=== PATIENT | female | born 1960 | race Caucasian/White ===

== ENCOUNTER 2017-11-24 14:03 | Emergency (ER) | payer MEDICARE, MEDICAID, SELFPAY ==
[2017-11-24] VITALS (12 sets, daily range): BP systolic 85–142; BP diastolic 45–88; PULSE 87–107; RESP 13–32; TEMP 36.4; O2SAT 91–99
--- NOTE | 2017-11-24 14:02 | DI.CT_ITS ---
SYMPTOMS/DIAGNOSIS: TRAUMA, INTOXICATED, NEED C-SPINE CLEARANCE CRANIAL CT: A noncontrast enhanced examination was performed. There is moderately severe generalized atrophy. A small region of left parietal cortical hemorrhage is demonstrated. There are regions of diminished absorption involving the frontoparietal white matter consistent with small vessel disease. There is no mass. There is nothing to suggest a territorial infarct. The ventricles are intact. There is no evidence of a skull fracture. Minimal inflammatory changes are noted on the floor of the right maxillary antrum. The paranasal sinuses are otherwise unremarkable. There is no evidence of a mastoid effusion. SUMMARY: Small regions of cortical hemorrhage are demonstrated in the left parietal lobe. There is moderately severe generalized atrophy. C-SPINE CT: The C-spine CT reveals no evidence of a fracture or dislocation. There are severe degenerative changes involving C4, C5 and C6. Disc space narrowing is noted at these levels. The neural canal is widely patent throughout. The posterior elements are intact. The odontoid is closely applied to the anterior arch of C1. SUMMARY: No evidence of an acute fracture or dislocation.
[2017-11-24] MEDS: Normal Saline 1,000 ML 1000 ML IV ×2 (14:30→19:36)
[2017-11-24] MEDS: Ondansetron 4 MG/2 ML VIAL IVP (14:30)
[2017-11-24 15:53] LABS: Abs Immature Grans 0.04 k/cumm (0.0-0.09); Absolute Basophil Count 0.05 k/cumm (0.0-0.2); Absolute Eosinophil Count 0.07 k/cumm (0.0-0.7); Absolute Lymphocyte Count 0.65 k/cumm (1.2-3.4); Absolute Monocyte Count 0.99 k/cumm (0.11-0.7); Absolute Neutrophil Count 4.11 k/cumm (1.2-6.7); Basophils % 0.8; Eosinophils % 1.2; HCT 37.5 % (36.0-46.0); HGB 13.2 g/dL (12.0-15.5); Immature Grans % 0.7; Mean Corp. HGB Concentration 35.2 g/dL (32.0-36.0); Mean Corpuscular Hemoglobin 36.1 pg (27.0-33.0); Mean Corpuscular Volume 102.5 fL (80-95); Mean Platelet Volume 8.8 fL (8.0-11.0); Monocytes % 16.8; Neutrophils % 69.5; Platelet Count 197 x1000/uL (130-400); RBC 3.66 m/cumm (4.00-5.20); RBC Distribution Width 13.8 % (11.7-14.6); White Blood Cell Count 5.91 k/cumm (4.4-10.8)
[2017-11-24 16:05] LABS: INR 1.1 (1.0-3.5); Prothrombin Time 10.6 sec (9.3-10.8)
[2017-11-24 16:27] LABS: ALT 92 U/L (12-78); AST 137 U/L (15-37); Albumin 3.2 g/dL (3.4-5.0); Alkaline Phosphatase 183 U/L (46-116); Anion Gap 11.5 mmol/L (3-11); BUN 4 mg/dL (7-18); Bilirubin, Total 0.3 mg/dL (0.2-1.0); CO2 25.5 mmol/L (21.0-32.0); CREATININE 0.44 mg/dL (0.55-1.02); Calcium 8.1 mg/dL (8.5-10.1); Chloride 98 mmol/L (98-107); ETHANOL BLOOD 370.2 mg/dL (<3); Glucose 93 mg/dL (70-100); Magnesium 1.7 mg/dL (1.8-2.4); Potassium 4.1 mmol/L (3.5-5.1); Sodium 135 mmol/L (136-145); Total Protein 7.3 g/dL (6.4-8.2)
--- NOTE | 2017-11-24 17:06 | W.ED.GENAD ---
Discharge Plan Disposition Patient Disposition: GUERLINE LAYTON ([facility]) Condition: Serious Discharge Details Chief Complaint: Trauma Clinical Impression: Subarachnoid hemorrhage Reason For Visit: EDWAR Primary Care Provider: Amarilys Barrera ED Provider: Ruby Leon Home Meds and New Rx's Prescriptions: No Action acetaminophen [Tylenol Extra Strength] 500 MG tablet 1,000 mg PO 4-6 HR RF: 0 aspirin, buffered 325 MG tablet 650 mg PO PRNRF: 0 hydroxyzine pamoate [Vistaril] 50 MG capsule 50 mg PO BID PRN Qty: 60 RF: 11 citalopram 20 MG tablet 20 mg PO DAILY Qty: 90 RF: 3 Medical Decision Making This is a 57-year-old chronic alcoholic who presents to the emergency department by EMS after sustaining a fall at home fall was reported as mechanical due to right knee pain which is chronic for her . She states she has had at least 3 falls over the past few days due to her knee pain. He states she has struck her head on multiple falls. She denies loss of consciousness she has no nausea reports of dizziness headache abdominal pain visual disturbances or other complaint at time of arrival. Neurologically she is intact and is able to provide a reliable consistent history. Her c-collar was applied prior to arrival. She was transported to CAT scan for a head and cervical spine CT shortly after arrival. Hemodynamically she was stable. Head CT does show small cortical hemorrhages on the left her CAT scan of the neck showed degenerative changes no acute fractures. I did discuss her case with neurosurgery at [facility] and they advised admission here for observation with repeat head CT in 8-12 hours and Keppra thousand milligrams IV piggyback load and then Keppra 500 mg twice daily. I did contact hospitalist services at [facility] and they were uncomfortable admitting her here with this diagnosis and her history. I then contacted [facility] who did accept trauma patients with subarachnoid hemorrhage in their emergency department for neurosurgery evaluation and have accepted her in transfer. The patient is in agreement with transfer and paperwork has been completed. Imaging Data Radiologic Study: Imaging: CT Scan (Head and C-spine without contrast: C-spine with degenerative changes no acute fractures head CT with left parietal cortical hemorrhages and severe atrophy) Lab Data Lab results reviewed: Yes I reviewed the patient's lab results. Patient presents by EMS after sustaining a fall where she reportedly fell down 3 stairs. Patient had been drinking and has a history of alcohol abuse. She denies any pain at the time of their arrival but was transported to [facility] in a c-collar for evaluation. She is awake oriented with strong odor of EtOH. She is denying any complaints at time of presentation. Patient reports that fall is mechanical from knee pain chronic right knee osteoarthritis. HPI General Date/Time Provider Initiated Documentation: 11/24/17 14:16. Related Data Home Medications Medication Instructions Recorded Confirmed acetaminophen [Tylenol Extra 1,000 mg PO 4-6 HR tab-cap 04/01/14 11/24/17 Strength] aspirin, buffered 650 mg PO PRN tab 09/25/15 citalopram 20 mg PO DAILY #90 tab-cap 07/07/17 11/24/17 hydroxyzine pamoate [Vistaril] 50 mg PO BID PRN #60 tab-cap 07/07/17 11/24/17 Previous Rx's Medication Instructions Recorded citalopram 20 mg PO DAILY #90 tab-cap 07/07/17 hydroxyzine pamoate [Vistaril] 50 mg PO BID PRN #60 tab-cap 07/07/17 Allergies Allergy/AdvReac Type Severity Reaction Status Date / Time No Known Allergies Allergy Unverified 11/24/17 14:32 General Stated Complaint: Trauma DANNY: 3 Review of Systems Review of Systems All systems reviewed & are unremarkable except as noted in HPI and below Constitutional Denies fever(s) and Denies headache(s) Eyes Denies change in vision ENT Denies vertigo, Denies dizziness and Denies headache(s) Cardiovascular Denies chest pain, Denies syncope and Denies dyspnea Respiratory Denies dyspnea Gastrointestinal Denies nausea and Denies vomiting Musculoskeletal Denies back pain, Reports arthralgias, Denies joint swelling and Denies limited range of motion Neurologic Denies vertigo, Denies dizziness, Denies syncope and Denies headache(s) [facility] Family History Mother Diabetes Essential hypertension Personal history of malignant neoplasm Father No problems noted. Sister Essential hypertension Sister No problems noted. Brother No problems noted. Maternal Aunt Personal history of malignant neoplasm Medical History Alcohol abuse (Chronic) Social History Smoking/Tobacco Use Status: Current every day Surgical History bunionectomy Exam Const General: cooperative, disheveled, intoxicated appearing and other (Older appearing than stated age flushed face) Nutritional Appearance: malnourished Orientation: alert, awake and oriented x3 HENMT Head: normal to inspection, no palpable skull fracture and normocephalic Mouth: oral mucosae normal Neck Neck: normal visual inspection and limited ROM (C-collar in place at time of arrival) Chest Chest: normal inspection of the chest Resp Effort & Inspection: normal respiratory effort and able to speak in complete sentences Auscultation: clear to auscultation bilaterally Cardio Rate: regular rate Rhythm: regular rhythm GI Inspection: normal to inspection Palpation: soft Skin General skin exam: no rashes or lesions noted Neuro General: alert, awake and oriented x3 Cranial Nerves: CN's II-XI intact bilaterally Cognition: normal cognition Speech: speech normal Motor: muscle tone normal throughout and strength 5/5 throughout Extrem General: normal to inspection and full ROM Course Vital Signs Temperature 36.4 C L 11/24/17 14:29 Pulse 87 11/24/17 14:29 Respiratory Rate 16 11/24/17 14:29 Blood Pressure 142/88 H 11/24/17 14:29 Pulse Oximetry 99 11/24/17 14:29 Temperature 36.4 C L 11/24/17 14:29 Temperature Source Skin 11/24/17 14:29 Pulse 87 11/24/17 14:29 Respiratory Rate 16 11/24/17 14:29 Respiratory Effort 11/24/17 14:29 Blood Pressure 142/88 H 11/24/17 14:29 Pulse Oximetry 99 11/24/17 14:29 Oxygen Delivery Method Room Air 11/24/17 14:29 Oxygen Flow Rate 0 11/24/17 14:29 Pain Level 9 11/24/17 14:29 Lab/Test Results Lab/Test Results: Laboratory Tests Range/Units 11/24/17 11/24/17 11/24/17 14:55 14:55 14:55 WBC Cancelled RBC Cancelled Hgb Cancelled Hct Cancelled MCV Cancelled MCH Cancelled MCHC Cancelled RDW Cancelled Plt Count Cancelled MPV Cancelled Immature Gran % Cancelled Neutrophils % Cancelled Lymphocytes % Cancelled Monocytes % Cancelled Eosinophils % Cancelled Basophils % Cancelled Absolute Neutrophils Cancelled Band Neutrophils Cancelled Absolute Lymphocytes Cancelled Absolute Monocytes Cancelled Absolute Eosinophils Cancelled Absolute Basophils Cancelled Metamyelocytes Cancelled Myelocytes Cancelled Promyelocytes Cancelled Nucleated RBCs Cancelled Differential Comment Cancelled Atypical Lymphocytes Cancelled Other Cell Type Cancelled RBC Morphology Cancelled Polychromasia Cancelled Hypochromasia Cancelled Poikilocytosis Cancelled Basophilic Stippling Cancelled Anisocytosis Cancelled Microcytosis Cancelled Macrocytosis Cancelled Spherocytes Cancelled Target Cells Cancelled Tear Drop Cells Cancelled Ovalocytes Cancelled Stomatocytes Cancelled [place] Bodies Cancelled [place] Cells Cancelled Acanthocytes (Spur) Cancelled Schistocytes Cancelled PT Cancelled INR Cancelled Sodium Cancelled Potassium Cancelled Chloride Cancelled Carbon Dioxide Cancelled Anion Gap Cancelled BUN Cancelled Creatinine Cancelled Estimated GFR/1.73 m2 Cancelled Glucose Cancelled Calcium Cancelled Magnesium Cancelled Total Bilirubin Cancelled AST Cancelled ALT Cancelled Alkaline Phosphatase Cancelled Total Protein Cancelled Albumin Cancelled Ethyl Alcohol Cancelled Range/Units 11/24/17 11/24/17 11/24/17 15:47 15:47 15:47 WBC 5.91 RBC 3.66 L Hgb 13.2 Hct 37.5 MCV 102.5 H MCH 36.1 H MCHC 35.2 RDW 13.8 Plt Count 197 MPV 8.8 Immature Gran % 0.7 Neutrophils % 69.5 Lymphocytes % 11.0 Monocytes % 16.8 Eosinophils % 1.2 Basophils % 0.8 Absolute Neutrophils 4.11 Band Neutrophils Absolute Lymphocytes 0.65 L Absolute Monocytes 0.99 H Absolute Eosinophils 0.07 Absolute Basophils 0.05 Metamyelocytes Myelocytes Promyelocytes Nucleated RBCs Differential Comment Atypical Lymphocytes Other Cell Type RBC Morphology Polychromasia Hypochromasia Poikilocytosis Basophilic Stippling Anisocytosis Microcytosis Macrocytosis Spherocytes Target Cells Tear Drop Cells Ovalocytes Stomatocytes [place] Bodies Manolo Cells Acanthocytes (Spur) Schistocytes PT 10.6 INR 1.1 Sodium 135 L Potassium 4.1 Chloride 98 Carbon Dioxide 25.5 Anion Gap 11.5 H BUN 4 L Creatinine 0.44 L Estimated GFR/1.73 m2 >= 60.00 Glucose 93 Calcium 8.1 L Magnesium 1.7 L Total Bilirubin 0.3 AST 137 H ALT 92 H Alkaline Phosphatase 183 H Total Protein 7.3 Albumin 3.2 L Ethyl Alcohol 370.2
[2017-11-24] MEDS: Acetaminophen 500 MG TAB 1000 MG PO (17:15)
--- NOTE | 2017-11-24 17:15 | ED.GENADUL_ITS ---
Discharge Plan Disposition Patient Disposition: GUERLINE LAYTON ([facility]) Condition: Serious Discharge Details Chief Complaint: Trauma Clinical Impression: Subarachnoid hemorrhage Reason For Visit: EDWAR Primary Care Provider: Amarilys Barrera ED Provider: Ruby Leon Home Meds and New Rx's Prescriptions: No Action acetaminophen [Tylenol Extra Strength] 500 MG tablet 1,000 mg PO 4-6 HR RF: 0 aspirin, buffered 325 MG tablet 650 mg PO PRNRF: 0 hydroxyzine pamoate [Vistaril] 50 MG capsule 50 mg PO BID PRN Qty: 60 RF: 11 citalopram 20 MG tablet 20 mg PO DAILY Qty: 90 RF: 3 Medical Decision Making This is a 57-year-old chronic alcoholic who presents to the emergency department by EMS after sustaining a fall at home fall was reported as mechanical due to right knee pain which is chronic for her . She states she has had at least 3 falls over the past few days due to her knee pain. He states she has struck her head on multiple falls. She denies loss of consciousness she has no nausea reports of dizziness headache abdominal pain visual disturbances or other complaint at time of arrival. Neurologically she is intact and is able to provide a reliable consistent history. Her c-collar was applied prior to arrival. She was transported to CAT scan for a head and cervical spine CT shortly after arrival. Hemodynamically she was stable. Head CT does show small cortical hemorrhages on the left her CAT scan of the neck showed degenerative changes no acute fractures. I did discuss her case with neurosurgery at [facility] and they advised admission here for observation with repeat head CT in 8-12 hours and Keppra thousand milligrams IV piggyback load and then Keppra 500 mg twice daily. I did contact hospitalist services at [facility] and they were uncomfortable admitting her here with this diagnosis and her history. I then contacted [facility] who did accept trauma patients with subarachnoid hemorrhage in their emergency department for neurosurgery evaluation and have accepted her in transfer. The patient is in agreement with transfer and paperwork has been completed. Imaging Data Radiologic Study: Imaging: CT Scan (Head and C-spine without contrast: C-spine with degenerative changes no acute fractures head CT with left parietal cortical hemorrhages and severe atrophy) Lab Data Lab results reviewed: Yes I reviewed the patient's lab results. Patient presents by EMS after sustaining a fall where she reportedly fell down 3 stairs. Patient had been drinking and has a history of alcohol abuse. She denies any pain at the time of their arrival but was transported to [facility] in a c -collar for evaluation. She is awake oriented with strong odor of EtOH. She is denying any complaints at time of presentation. Patient reports that fall is mechanical from knee pain chronic right knee osteoarthritis. HPI General Date/Time Provider Initiated Documentation: 11/24/17 14:16 . Related Data Home Medications Medication Instructions Recorded Confirmed acetaminophen [Tylenol Extra 1,000 mg PO 4-6 HR tab-cap 04/01/14 11/24/17 Strength] aspirin, buffered 650 mg PO PRN tab 09/25/15 citalopram 20 mg PO DAILY #90 tab-cap 07/07/17 11/24/17 hydroxyzine pamoate [Vistaril] 50 mg PO BID PRN #60 tab-cap 07/07/17 11/24/17 Previous Rx's Medication Instructions Recorded citalopram 20 mg PO DAILY #90 tab-cap 07/07/17 hydroxyzine pamoate [Vistaril] 50 mg PO BID PRN #60 tab-cap 07/07/17 Allergies Allergy/AdvReac Type Severity Reaction Status Date / Time No Known Allergies Allergy Unverified 11/24/17 14:32 General Stated Complaint: Trauma DANNY: 3 Review of Systems Review of Systems All systems reviewed & are unremarkable except as noted in HPI and below Constitutional Denies fever(s) and Denies headache(s) Eyes Denies change in vision ENT Denies vertigo, Denies dizziness and Denies headache(s) Cardiovascular Denies chest pain, Denies syncope and Denies dyspnea Respiratory Denies dyspnea Gastrointestinal Denies nausea and Denies vomiting Musculoskeletal Denies back pain, Reports arthralgias, Denies joint swelling and Denies limited range of motion Neurologic Denies vertigo, Denies dizziness, Denies syncope and Denies headache(s) [facility] Family History Mother Diabetes Essential hypertension Personal history of malignant neoplasm Father No problems noted. Sister Essential hypertension Sister No problems noted. Brother No problems noted. Maternal Aunt Personal history of malignant neoplasm Medical History Alcohol abuse (Chronic) Social History Smoking/Tobacco Use Status: Current every day Surgical History bunionectomy Exam Const General: cooperative, disheveled, intoxicated appearing and other (Older appearing than stated age flushed face) Nutritional Appearance: malnourished Orientation: alert, awake and oriented x3 HENMT Head: normal to inspection, no palpable skull fracture and normocephalic Mouth: oral mucosae normal Neck Neck: normal visual inspection and limited ROM (C-collar in place at time of arrival) Chest Chest: normal inspection of the chest Resp Effort & Inspection: normal respiratory effort and able to speak in complete sentences Auscultation: clear to auscultation bilaterally Cardio Rate: regular rate Rhythm: regular rhythm GI Inspection: normal to inspection Palpation: soft Skin General skin exam: no rashes or lesions noted Neuro General: alert, awake and oriented x3 Cranial Nerves: CN's II-XI intact bilaterally Cognition: normal cognition Speech: speech normal Motor: muscle tone normal throughout and strength 5/5 throughout Extrem General: normal to inspection and full ROM Course Vital Signs Temperature 36.4 C L 11/24/17 14:29 Pulse 87 11/24/17 14:29 Respiratory Rate 16 11/24/17 14:29 Blood Pressure 142/88 H 11/24/17 14:29 Pulse Oximetry 99 11/24/17 14:29 Temperature 36.4 C L 11/24/17 14:29 Temperature Source Skin 11/24/17 14:29 Pulse 87 11/24/17 14:29 Respiratory Rate 16 11/24/17 14:29 Respiratory Effort 11/24/17 14:29 Blood Pressure 142/88 H 11/24/17 14:29 Pulse Oximetry 99 11/24/17 14:29 Oxygen Delivery Method Room Air 11/24/17 14:29 Oxygen Flow Rate 0 11/24/17 14:29 Pain Level 9 11/24/17 14:29 Lab/Test Results Lab/Test Results: Laboratory Tests Range/Units 11/24/17 11/24/17 11/24/17 14:55 14:55 14:55 WBC Cancelled RBC Cancelled Hgb Cancelled Hct Cancelled MCV Cancelled MCH Cancelled MCHC Cancelled RDW Cancelled Plt Count Cancelled MPV Cancelled Immature Gran % Cancelled Neutrophils % Cancelled Lymphocytes % Cancelled Monocytes % Cancelled Eosinophils % Cancelled Basophils % Cancelled Absolute Neutrophils Cancelled Band Neutrophils Cancelled Absolute Lymphocytes Cancelled Absolute Monocytes Cancelled Absolute Eosinophils Cancelled Absolute Basophils Cancelled Metamyelocytes Cancelled Myelocytes Cancelled Promyelocytes Cancelled Nucleated RBCs Cancelled Differential Comment Cancelled Atypical Lymphocytes Cancelled Other Cell Type Cancelled RBC Morphology Cancelled Polychromasia Cancelled Hypochromasia Cancelled Poikilocytosis Cancelled Basophilic Stippling Cancelled Anisocytosis Cancelled Microcytosis Cancelled Macrocytosis Cancelled Spherocytes Cancelled Target Cells Cancelled Tear Drop Cells Cancelled Ovalocytes Cancelled Stomatocytes Cancelled [place] Bodies Cancelled [place]olo Cells Cancelled Acanthocytes (Spur) Cancelled Schistocytes Cancelled PT Cancelled INR Cancelled Sodium Cancelled Potassium Cancelled Chloride Cancelled Carbon Dioxide Cancelled Anion Gap Cancelled BUN Cancelled Creatinine Cancelled Estimated GFR/1.73 m2 Cancelled Glucose Cancelled Calcium Cancelled Magnesium Cancelled Total Bilirubin Cancelled AST Cancelled ALT Cancelled Alkaline Phosphatase Cancelled Total Protein Cancelled Albumin Cancelled Ethyl Alcohol Cancelled Range/Units 11/24/17 11/24/17 11/24/17 15:47 15:47 15:47 WBC 5.91 RBC 3.66 L Hgb 13.2 Hct 37.5 MCV 102.5 H MCH 36.1 H MCHC 35.2 RDW 13.8 Plt Count 197 MPV 8.8 Immature Gran % 0.7 Neutrophils % 69.5 Lymphocytes % 11.0 Monocytes % 16.8 Eosinophils % 1.2 Basophils % 0.8 Absolute Neutrophils 4.11 Band Neutrophils Absolute Lymphocytes 0.65 L Absolute Monocytes 0.99 H Absolute Eosinophils 0.07 Absolute Basophils 0.05 Metamyelocytes Myelocytes Promyelocytes Nucleated RBCs Differential Comment Atypical Lymphocytes Other Cell Type RBC Morphology Polychromasia Hypochromasia Poikilocytosis Basophilic Stippling Anisocytosis Microcytosis Macrocytosis Spherocytes Target Cells Tear Drop Cells Ovalocytes Stomatocytes [place] Bodies Manolo Cells Acanthocytes (Spur) Schistocytes PT 10.6 INR 1.1 Sodium 135 L Potassium 4.1 Chloride 98 Carbon Dioxide 25.5 Anion Gap 11.5 H BUN 4 L Creatinine 0.44 L Estimated GFR/1.73 m2 >= 60.00 Glucose 93 Calcium 8.1 L Magnesium 1.7 L Total Bilirubin 0.3 AST 137 H ALT 92 H Alkaline Phosphatase 183 H Total Protein 7.3 Albumin 3.2 L Ethyl Alcohol 370.2
[2017-11-24] MEDS: Nicotine 2 MG GUM CH (17:36)
--- NOTE | 2017-11-24 17:39 | NUR.NOTE ---
2mg nicorette gum given 1734-not able to document in apr.Nursing Note:
== END 2017-11-24 19:55 | disposition short-term general hospital (02) ==
PROVIDERS: Emergency Provider Nurse Practitioner Acute Care; PCP Nurse Practitioner
DX: S06.6X0A Traumatic subarachnoid hemorrhage without loss of consciousness, initial encounter (principal); W10.8XXA Fall (on) (from) other stairs and steps, initial encounter; R42 Dizziness and giddiness; F10.129 Alcohol abuse with intoxication, unspecified; Y90.8 Blood alcohol level of 240 mg/100 ml or more
CPT/HCPCS: 36415; 80053; 96361; 96365; 96375; 99285; 70450; 72125; 80320; 83735; 85025; 85610; J1953; J2405

== ENCOUNTER 2018-03-24 20:47 | Emergency (ER) | payer MEDICARE, MEDICAID, SELFPAY ==
[2018-03-24 20:53] VITALS: BP 103/68; PULSE 104; RESP 16; TEMP 36.6; O2SAT 95
[2018-03-24] MEDS: Lactated Ringers 1,000 ML 150 ML IV (21:15)
--- NOTE | 2018-03-24 21:20 | ED.GENADUL_ITS ---
Discharge Plan Disposition Patient Disposition: HOME Condition: Good Discharge Details Chief Complaint: HeadInjury Clinical Impression: Laceration of scalp, Fall at home, Alcohol intoxication in active alcoholic Reason For Visit: EDWAR Primary Care Provider: Amarilys Barrera ED Provider: Chente Toro Meds and New Rx's Prescriptions: Continued acetaminophen [Tylenol Extra Strength] 500 MG tablet 1,000 mg PO 4-6 HR RF: 0 aspirin, buffered 325 MG tablet 650 mg PO PRNRF: 0 hydroxyzine pamoate [Vistaril] 50 MG capsule 50 mg PO BID PRN Qty: 60 RF: 11 citalopram 20 MG tablet 20 mg PO DAILY Qty: 90 RF: 3 Discharge Instructions Instructions: Laceration (ED), Head Injury (ED), Abuse of Alcohol (ED) Additional Instructions: You are being discharged into the care of your significant other who is taking responsibility for you. Do not go home and drink alcohol tonight. You should consider rehab and detox. Mcgrath will need to come out in 10-14 days. You need to watch for signs of infection. Return to the ED for staple removal. Referrals: [facility] [Provider Group] Medical Decision Making Patient here status post fall at home. She has a posterior scalp laceration. She has a previous traumatic subarachnoid hemorrhage from a fall. She is a chronic alcoholic. She has been drinking tonight but appears quite sober with clear speech and cognition. She is collared. She has no neck pain. I will get an alcohol level just to see where she stands. Will scan her head and neck. Will need to repair laceration once scans completed. Unable to verify tetanus status in our records. Patient reports being up-to-date. CT head and neck negative for acute injury. Patient removed the collar on her own. She has no complaints of pain and has normal range of motion. Alcohol level is elevated to 344. However, patient is clinically sober with normal speech, normal cognition, normal gait. She does not wish to stay here. She would like her significant other to come and get her. While her alcohol level is elevated it difficult for me to say that she lacks capacity as she clinically is sober and is a chronic daily drinker. As long as significant other comes and takes responsibility for her I will discharge her home. Laceration to the scalp is quite large. It was anesthetized. It was irrigated out with copious amounts of saline. It was then closed with mohini. Patient tolerated well. Mohini will need to come out in 10-14 days. HPI General Mode of arrival: EMS . Date/Time Provider Initiated Documentation: 03/24/18 21:01 . Limitations to Documentation: no limitations . Information obtained by: patient and old records reviewed . HPI Narrative: Patient presents by ambulance with posterior scalp laceration status post fall. Patient was getting up out of her chair, lost her balance and fell over backwards. She struck her head. She did not have a loss of consciousness. She has been drinking and has a history of alcohol abuse. She denies any neurologic symptoms. She denies headache. She denies neck pain. She denies other problems at this point. Patient reports that her tetanus is up-to-date. Related Data Home Medications Medication Instructions Recorded Confirmed acetaminophen [Tylenol Extra 1,000 mg PO 4-6 HR tab-cap 04/01/14 03/24/18 Strength] aspirin, buffered 650 mg PO PRN tab 09/25/15 citalopram 20 mg PO DAILY #90 tab-cap 18 03/24/18 hydroxyzine pamoate [Vistaril] 50 mg PO BID PRN #60 tab-cap 18 03/24/18 Previous Rx's Medication Instructions Recorded citalopram 20 mg PO DAILY #90 tab-cap 07/07/17 hydroxyzine pamoate [Vistaril] 50 mg PO BID PRN #60 tab-cap 07/07/17 Allergies Allergy/AdvReac Type Severity Reaction Status Date / Time No Known Allergies Allergy Unverified 03/24/18 21:20 General Stated Complaint: HeadInjury DANNY: 3 Review of Systems Constitutional Denies chills, Denies fever(s), Denies headache(s) and Denies weakness Eyes Denies change in vision and Denies diplopia ENT Denies vertigo, Denies facial pain, Denies headache(s), Denies epistaxis, Denies neck pain and Denies nose pain Cardiovascular Denies chest pain, Denies diaphoresis, Denies syncope, Denies edema and Denies dyspnea Respiratory Denies chest congestion, Denies cough and Denies dyspnea Gastrointestinal Denies abdominal pain, Denies diarrhea, Denies nausea and Denies vomiting Musculoskeletal Denies back pain, Denies myalgias, Denies arthralgias, Denies neck pain, Denies numbness and Denies tingling Integumentary/Breasts Reports wounds Neurologic Denies abnormal speech, Denies confusion, Denies vertigo, Denies syncope, Denies headache(s), Denies focal weakness, Denies numbness, Denies convulsions, Denies tingling, Denies paresthesias and Denies weakness Psychiatric Denies confusion [facility] Medical History Alcohol abuse (Chronic) SAH (subarachnoid hemorrhage) (Inactive) Surgical History bunionectomy (Inactive) Social History household members: significant other Smoking/Tobacco Use Status: Current every day alcohol intake: current substance use type: does not use Exam Const General: cooperative, comfortable and no acute distress Orientation: alert and oriented x3 HENMT Head: normocephalic and laceration (right parietal/occipital laceration ~ 4 cm) Ears: external ears normal and unable to visualize TM (cerumen) bilaterally General nose exam: external nose normal and no epistaxis Face and sinus: normal facial exam Eyes Pupils: PERRL EOM: EOM intact bilaterally Neck Neck: trachea midline and supple Chest Chest: normal palpation of entire chest wall Resp Effort & Inspection: normal respiratory effort Auscultation: clear to auscultation bilaterally Cardio Rate: regular rate Rhythm: regular rhythm Heart Sounds: S1 normal and S2 normal GI Palpation: soft, not firm and nontender Back/Spine/Pelvis Cervical Spine: collar present and No cervical spinal tenderness Thoracic/Lumbar Spine: No thoraco-lumbar ROM limited, No thoracic spinal tenderness and No lumbar spinal tenderness Skin Trauma: laceration Neuro General: alert, oriented x3, no focal motor deficits, CN's II-XI intact bilaterally, not confused and not obtunded Sensory Exam: no sensory deficits noted Course Vital Signs Temperature 97.9 F 03/24/18 20:53 Pulse 104 H 03/24/18 20:53 Respiratory Rate 16 03/24/18 20:53 Blood Pressure 103/68 03/24/18 20:53 Pulse Oximetry 95 03/24/18 20:53 Temperature 97.9 F 03/24/18 20:53 Temperature Source Temporal Artery Scan 03/24/18 20:53 Pulse 104 H 03/24/18 20:53 Respiratory Rate 16 03/24/18 20:53 Respiratory Effort Non-Labored 03/24/18 20:59 Respiratory Depth Normal 03/24/18 20:59 Respiratory Pattern Normal 03/24/18 20:59 Blood Pressure 103/68 03/24/18 20:53 Blood Pressure Position Supine 03/24/18 20:53 Pulse Oximetry 95 03/24/18 20:53 Oxygen Delivery Method Room Air 03/24/18 20:53 Oxygen Flow Rate 0 03/24/18 20:53 Pain Level 6 03/24/18 20:53 Procedures Laceration Laceration 1: Site: scalp Side (If applicable): left Size (cm): 4 Description: linear and clean Depth: simple, single layer Local Anesthetic: Lidocaine 1% and with Epi Pre-repair: wound explored and irrigated extensively Skin layer closed with: other (mohini) Number of sutures: 9
[2018-03-24 21:22] LABS: Abs Immature Grans 0.02 k/cumm (0.0-0.09); Absolute Basophil Count 0.03 k/cumm (0.0-0.2); Absolute Eosinophil Count 0.07 k/cumm (0.0-0.7); Absolute Lymphocyte Count 1.26 k/cumm (1.2-3.4); Basophils % 0.5; Eosinophils % 1.3; HCT 37.6 % (36.0-46.0); HGB 13.6 g/dL (12.0-15.5); Immature Grans % 0.4; Mean Corp. HGB Concentration 36.2 g/dL (32.0-36.0); Mean Corpuscular Hemoglobin 35.8 pg (27.0-33.0); Mean Corpuscular Volume 98.9 fL (80-95); Mean Platelet Volume 10.1 fL (8.0-11.0); Monocytes % 16.4; Neutrophils % 58.4; Platelet Count 140 x1000/uL (130-400); RBC Distribution Width 13.1 % (11.7-14.6); White Blood Cell Count 5.48 k/cumm (4.4-10.8)
--- NOTE | 2018-03-24 21:28 | DI.CT_ITS ---
SYMPTOM/DIAGNOSIS: TRAUMA/FALL, ALCOHOL NONCONTRAST HEAD CT: Comparison is made with 24 Nov 2017. No intracranial hemorrhage or skull fracture is seen. The ventricles are normal in size. The orbits, sinuses, and mastoid air cells are unremarkable. IMPRESSION: No acute abnormality. CT CERVICAL SPINE: Degenerative disc changes and facet degenerative changes are noted. There is no evidence of fracture. There has been no change when compared with 24 Nov 2017. IMPRESSION: Degenerative changes. No acute abnormality.
[2018-03-24 21:35] LABS: Anion Gap 13.8 mmol/L (3-11); BUN 6 mg/dL (7-18); CO2 25.2 mmol/L (21.0-32.0); CREATININE 0.62 mg/dL (0.55-1.02); Calcium 8.6 mg/dL (8.5-10.1); Chloride 98 mmol/L (98-107); Glucose 96 mg/dL (70-100); Potassium 3.7 mmol/L (3.5-5.1); Sodium 137 mmol/L (136-145)
[2018-03-24 21:42] LABS: ETHANOL BLOOD 344.1 mg/dL (<3)
[2018-03-24 21:53] VITALS: BP 110/70; PULSE 86; RESP 16; TEMP 36.5; O2SAT 92
--- NOTE | 2018-03-24 22:07 | DI.VRAD_ITS ---
EXAM: CT Head Without Contrast EXAM DATE/TIME: 03/24/2018 9:09 PM CLINICAL HISTORY: 58 years old, female; Injury or trauma; Fall; Initial encounter; Blunt trauma TECHNIQUE: Axial computed tomography images of the head/brain without contrast. Coronal and sagittal reformatted images were created and reviewed. COMPARISON: CT HEAD CERVICAL SPINE WO 11/24/2017 2:02 PM FINDINGS: Brain: Typical for age. No hemorrhage. No evidence of acute infarct. No mass. Ventricles: No ventriculomegaly. Bones/joints: Unremarkable. Sinuses: No sinus fluid. Mastoid air cells: Unremarkable. Soft tissues: Unremarkable. IMPRESSION: No acute intracranial abnormality. EXAM: CT Cervical Spine Without Contrast EXAM DATE/TIME: 03/24/2018 9:09 PM CLINICAL HISTORY: 58 years old, female; Injury or trauma; Fall; Initial encounter; Blunt trauma TECHNIQUE: Axial computed tomography images of the cervical spine without intravenous contrast. Coronal and sagittal reformatted images were created and reviewed. COMPARISON: CT HEAD CERVICAL SPINE WO 11/24/2017 2:02 PM FINDINGS: Vertebrae: No acute fracture. Normal alignment. Vertebral body heights preserved. Discs/Spinal canal/Neural foramina: There are areas of moderate degenerative change most notably C5-6 degenerative disc disease with a prominent posterior mixed spondylotic protrusion. This does look to create some central canal narrowing. Soft tissues: Unremarkable. Lungs: Lung apices are unremarkable as visualized. IMPRESSION: No acute findings. Degenerative changes. Dictated and Authenticated by: Donnie Del Angel MD. Ordering:JOEY Eldridge MD
[2018-03-24 23:00] VITALS: BP 115/75; PULSE 90; RESP 16; TEMP 36.5; O2SAT 94
== END 2018-03-24 23:39 | disposition home or self-care (01) ==
PROVIDERS: Emergency Provider Emergency Medicine; PCP Nurse Practitioner
DX: S09.90XA Unspecified injury of head, initial encounter (principal); S01.01XA Laceration without foreign body of scalp, initial encounter; W01.198A Fall on same level from slipping, tripping and stumbling with subsequent striking against other object, initial encounter; F10.229 Alcohol dependence with intoxication, unspecified; Y90.8 Blood alcohol level of 240 mg/100 ml or more
CPT/HCPCS: 36415; 80048; 96360; 96361; 99284; 70450; 72125; 80320; 85025

== ENCOUNTER 2018-04-10 08:25 | Emergency (ER) | payer MEDICARE, MEDICAID, SELFPAY ==
[2018-04-10 08:32] VITALS: BP 134/97; PULSE 104; RESP 20; TEMP 36.8; O2SAT 96
--- NOTE | 2018-04-10 08:53 | ED.GENADUL_ITS ---
Discharge Plan Disposition Patient Disposition: HOME Condition: Stable Discharge Details Chief Complaint: SutureRem Clinical Impression: Visit for suture removal Primary Care Provider: Amarilys Barrera ED Provider: Douglas Farfan Home Meds and New Rx's Prescriptions: Continued acetaminophen [Tylenol Extra Strength] 500 MG tablet 1,000 mg PO 4-6 HR RF: 0 aspirin, buffered 325 MG tablet 650 mg PO PRNRF: 0 hydroxyzine pamoate [Vistaril] 50 MG capsule 50 mg PO BID PRN Qty: 60 RF: 11 citalopram 20 MG tablet 20 mg PO DAILY Qty: 90 RF: 3 Medical Decision Making 58-year-old female who presents for uneventful removal of benign scalp with ramiro. Wound is well-appearing; she is otherwise in no distress HPI General Mode of arrival: ambulatory . Date/Time Provider Initiated Documentation: 04/10/18 08:26 . Limitations to Documentation: no limitations . Information obtained by: patient . History of Present Illness 58 year old F presents to the emergency department with the chief complaint of Suture removal, left scalp, no complaints, Related Data Home Medications Medication Instructions Recorded Confirmed acetaminophen [Tylenol Extra 1,000 mg PO 4-6 HR tab-cap 04/01/14 03/24/18 Strength] aspirin, buffered 650 mg PO PRN tab 09/25/15 citalopram 20 mg PO DAILY #90 tab-cap 07/07/17 04/10/18 hydroxyzine pamoate [Vistaril] 50 mg PO BID PRN #60 tab-cap 18 04/10/18 Previous Rx's Medication Instructions Recorded citalopram 20 mg PO DAILY #90 tab-cap 07/07/17 hydroxyzine pamoate [Vistaril] 50 mg PO BID PRN #60 tab-cap 07/07/17 Allergies Allergy/AdvReac Type Severity Reaction Status Date / Time No Known Allergies Allergy Unverified 04/10/18 08:34 General Stated Complaint: SutureRem DANNY: 5 Review of Systems Review of Systems No bleeding, no headache, no pain, no fever PFSH Medical History Alcohol abuse (Chronic) SAH (subarachnoid hemorrhage) (Inactive) Surgical History bunionectomy (Inactive) Family History Mother Diabetes Essential hypertension Personal history of malignant neoplasm Father No problems noted. Sister Essential hypertension Sister No problems noted. Brother No problems noted. Maternal Aunt Personal history of malignant neoplasm Social History household members: significant other Smoking and Tabacco status: Current every day alcohol intake: current substance use type: does not use Exam Narrative Exam Narrative: GEN: awake, alert, oriented 3. Pleasant, well groomed, interactive. HEAD: Normocephalic, atraumatic. Left scalp with [address], healing laceration ENT: Mucous membranes moist, oropharynx unremarkable, External ear exam unremarkable Neuro: Grossly normal neurologic exam, conversant, interactive. Psych: Speech fluent, thoughts congruent, affect normal Course Vital Signs Temperature 36.8 C 04/10/18 08:32 Pulse 104 H 04/10/18 08:32 Respiratory Rate 20 04/10/18 08:32 Blood Pressure 134/97 H 04/10/18 08:32 Pulse Oximetry 96 04/10/18 08:32 Temperature 36.8 C 04/10/18 08:32 Temperature Source Temporal Artery Scan 04/10/18 08:32 Pulse 104 H 04/10/18 08:32 Respiratory Rate 20 04/10/18 08:32 Respiratory Effort Non-Labored 04/10/18 08:32 Blood Pressure 134/97 H 04/10/18 08:32 Blood Pressure Position Sitting 04/10/18 08:32 Pulse Oximetry 96 04/10/18 08:32 Oxygen Delivery Method Room Air 04/10/18 08:32 Oxygen Flow Rate 0 04/10/18 08:32 Pain Level 3 04/10/18 08:32
[2018-04-10 08:57] VITALS: BP 134/97; PULSE 104; RESP 20; TEMP 36.8; O2SAT 96
== END 2018-04-10 08:55 | disposition home or self-care (01) ==
PROVIDERS: Emergency Provider Emergency Medicine; PCP Nurse Practitioner
DX: S01.01XD Laceration without foreign body of scalp, subsequent encounter (principal); W01.0XXD Fall on same level from slipping, tripping and stumbling without subsequent striking against object, subsequent encounter; Z48.02 Encounter for removal of sutures

== ENCOUNTER 2018-04-15 01:23 | Emergency (ER) | payer MEDICARE, MEDICAID, SELFPAY ==
[2018-04-15 01:28] VITALS: BP 116/80; PULSE 97; RESP 16; TEMP 37; O2SAT 95
--- NOTE | 2018-04-15 01:51 | ED.GENADUL_ITS ---
Discharge Plan Disposition Patient Disposition: HOME Condition: Good Discharge Details Chief Complaint: HeadInjury Clinical Impression: Alcohol intoxication in active alcoholic, Fall from slip, trip, or stumble, Contusion of face, Nasal laceration Reason For Visit: EDWAR Primary Care Provider: Amarilys Barrera ED Provider: Chente Toro Arnold Meds and New Rx's Prescriptions: Continued acetaminophen [Tylenol Extra Strength] 500 MG tablet 1,000 mg PO 4-6 HR RF: 0 aspirin, buffered 325 MG tablet 650 mg PO PRNRF: 0 hydroxyzine pamoate [Vistaril] 50 MG capsule 50 mg PO BID PRN Qty: 60 RF: 11 citalopram 20 MG tablet 20 mg PO DAILY Qty: 90 RF: 3 Discharge Instructions Instructions: Contusion in Adults (ED), Facial Laceration (ED) Additional Instructions: You will want to use ice to the left side of your face for pain and swelling. Sutures in your left nose will need to come out in 5-7 days. Watch for signs of infection which include redness, swelling, pain. You should contact [facility] and really try to stop drinking before you sustain a fall with significant injury. Return to ED to have sutures removed. Referrals: [facility] [Provider Group] Amarilys Barrera NP [Primary Care Provider] - Discharge Data Discharge Date/Time-TO BE ENTERED AT DEPARTURE: 04/15/18 04:30 Medical Decision Making Patient arrives status post fall at home. She has been drinking tonight but clinically appears quite sober with normal speech and normal cognition. She is cooperative. She is in a collar. She has ecchymosis and tenderness in the left side of her face and periorbitally. Pupils are equal round and reactive and extraocular muscles are intact. No visual change. She has a laceration involving the left nares laterally which allows for the nose to be partially removed from the face. She has a lip hematoma on the right but no evidence of dental injury. She does have poor dental dentition to start with. She has no cervical spine tenderness. She is neurologically intact. Lungs are clear. She complains of right rib pain but has no tenderness and reports that this is from a fall sometime ago. CT scan of the head face and cervical spine were ordered. This was a trip and fall without loss of consciousness. While there is alcohol on board she is clinically sober and is a chronic alcoholic. No EKG or laboratory studies were performed. Patient CT scans are negative. Patient removed the collar herself. She has normal range of motion and is not complaining of pain. She has no tenderness. She is allowed to remain out of the collar. Nares laceration was anesthetized with lidocaine plain. Wound was irrigated. Left lateral naris was reapproximated to the face with 2 6-0 nylon sutures. Patient tolerated procedure well. There is good approximation and closure of wound. Patient has gotten up and ambulated in the department without difficulty. He refuses tetanus booster. [facility]. Patient told to return for suture removal in 5-7 days. Return sooner if any evidence of infection. She reports that she has been trying to get in the [facility] which I have encouraged her to continue to do. HPI General Mode of arrival: EMS . Date/Time Provider Initiated Documentation: 04/15/18 01:50 . Information obtained by: patient and EMS . HPI Narrative: Patient presents to ED by ambulance after trip and fall at home. Patient has been drinking tonight and is a chronic alcoholic. Tonight she tripped over her cat and fell landing on her face. She denies having loss of consciousness. She has pain and swelling to the left side of her face as well as laceration to the nose. She denies neck pain. She has mild right rib pain from a previous fall that was not sustained tonight. She has no difficulty breathing. She has no abdominal pain. She has no neurologic complaints. Related Data Home Medications Medication Instructions Recorded Confirmed acetaminophen [Tylenol Extra 1,000 mg PO 4-6 HR tab-cap 04/01/14 04/15/18 Strength] aspirin, buffered 650 mg PO PRN tab 09/25/15 citalopram 20 mg PO DAILY #90 tab-cap 07/07/17 04/15/18 hydroxyzine pamoate [Vistaril] 50 mg PO BID PRN #60 tab-cap 07/07/17 04/15/18 Previous Rx's Medication Instructions Recorded citalopram 20 mg PO DAILY #90 tab-cap 07/07/17 hydroxyzine pamoate [Vistaril] 50 mg PO BID PRN #60 tab-cap 05/10/18 Allergies Allergy/AdvReac Type Severity Reaction Status Date / Time No Known Allergies Allergy Unverified 04/15/18 01:30 General Stated Complaint: HeadInjury DANNY: 3 Review of Systems Constitutional Denies fever(s), Reports frequent falls, Denies headache(s) and Denies weakness Eyes Denies change in vision and Denies eye pain ENT Denies vertigo, Denies dizziness, Reports facial pain, Denies headache(s), Reports lip swelling, Denies epistaxis, Denies neck pain and Reports nose pain Cardiovascular Reports chest pain (right lateral rib pain), Denies syncope, Denies edema and Denies dyspnea Respiratory Denies cough and Denies dyspnea Gastrointestinal Denies abdominal pain, Denies diarrhea, Denies nausea and Denies vomiting Musculoskeletal Denies back pain, Denies deformity, Denies neck pain and Denies numbness Integumentary/Breasts Reports wounds Neurologic Denies confusion, Denies vertigo, Denies dizziness, Denies syncope, Reports frequent falls, Denies headache(s), Denies numbness and Denies weakness Psychiatric Denies confusion Allergic/Immunologic Reports lip swelling [facility] Medical History Alcohol abuse (Chronic) SAH (subarachnoid hemorrhage) (Inactive) Surgical History bunionectomy (Inactive) Social History household members: significant other Smoking and Tabacco status: Current every day alcohol intake: current substance use type: does not use Exam Const General: cooperative, comfortable and no acute distress Orientation: alert and oriented x3 HENMT Head: normocephalic and atraumatic Ears: external ears normal and unable to visualize TM (cerumen) bilaterally General nose exam: septum normal, no epistaxis and external nose abnormal nasal laceration (left lateral nares laceration) Face and sinus: ecchymosis on the left maxilla and edema on the left maxilla Mouth: tongue normal and lip abnormal (bruising/swelling right upper lip) Teeth and gingiva: poor dentition Eyes Periorbital: periorbital findings abnormal left periorbital swelling and periorbital ecchymosis Pupils: PERRL EOM: EOM intact bilaterally Chest Chest: normal palpation of entire chest wall and no tenderness Resp Effort & Inspection: normal respiratory effort Auscultation: clear to auscultation bilaterally Cardio Rate: regular rate Rhythm: regular rhythm Heart Sounds: S1 normal and S2 normal GI Palpation: soft and nontender Back/Spine/Pelvis Cervical Spine: collar present and No cervical spinal tenderness Thoracic/Lumbar Spine: No thoracic spinal tenderness and No lumbar spinal tenderness Skin Trauma: laceration Neuro General: alert, oriented x3, no focal motor deficits, CN's II-XI intact bilaterally, not confused and not obtunded Extrem General: normal to inspection, full ROM and other (No deformity or tenderness of the extremities.) Course Vital Signs Temperature 98.6 F 04/15/18 01:28 Pulse 97 H 04/15/18 01:28 Respiratory Rate 16 04/15/18 01:28 Blood Pressure 116/80 04/15/18 01:28 Pulse Oximetry 95 04/15/18 01:28 Temperature 98.6 F 04/15/18 01:28 Temperature Source Skin 04/15/18 01:28 Pulse 97 H 04/15/18 01:28 Respiratory Rate 16 04/15/18 01:28 Respiratory Effort 04/15/18 01:32 Blood Pressure 116/80 04/15/18 01:28 Pulse Oximetry 95 04/15/18 01:28 Oxygen Delivery Method Room Air 04/15/18 01:28 Oxygen Flow Rate 0 04/15/18 01:28 Pain Level 0 04/15/18 01:28 Procedures Laceration Laceration 1: Site: face Side (If applicable): left Size (cm): 0.5 Description: linear Depth: simple, single layer Local Anesthetic: Lidocaine 1% Amount of anesthesia used (mL): 1 Pre-repair: irrigated extensively Skin layer closed with: nylon Size (cm): 6-0 Number of sutures: 2
--- NOTE | 2018-04-15 02:25 | DI.CT_ITS ---
SYMPTOM/DIAGNOSIS: TRAUMA HEAD AND FACIAL CT: Multiple contiguous axial images of the face and head were obtained. Comparison is made with 03/24/18. The ventricles and sulci are consistent with the patient's age. No intracranial hemorrhage, infarct, acute midline shift or mass effect is identified. The ventricles are intact. The basilar cisterns are patent. The calvarium is intact. There is mild mucosal thickening seen in the right and left maxillary sinuses. The remaining visualized paranasal sinuses are clear. No fluid levels are seen. The mastoid air cells are well pneumatized. No calvarial fracture is seen. There is no evidence of a facial fracture. The nasal septum is midline. The turbinates and ostiomeatal complexes are unremarkable. The orbital tyler and floor are intact. There is left chloe-orbital soft tissue swelling. The orbits and retro-orbital soft tissues are unremarkable. IMPRESSION: 1. No acute intracranial process. 2. No evidence of a facial fracture. 3. Left sided facial soft tissue swelling, particularly in the chloe-orbital region. CERVICAL SPINE CT: Multiple contiguous axial images of the cervical spine were obtained. Sagittal and coronal reformatted images were evaluated on the [employer] workstation. No acute fracture or subluxation is seen in the cervical spine. Moderate degenerative changes are seen throughout the cervical spine. There is no prevertebral soft tissue swelling. No acute findings are seen in the lung apices. IMPRESSION: No acute fracture or subluxation in the cervical spine.
--- NOTE | 2018-04-15 02:25 | NUR.NOTE ---
patient took c-collar off, patient educated upon risks of injury, patient states, I own it Nursing Note:
[2018-04-15 02:26] VITALS: BP 125/89; PULSE 105; O2SAT 95
--- NOTE | 2018-04-15 02:27 | NUR.NOTE ---
patient returned from CT and again refusing to keep c-collar off Nursing Note:
--- NOTE | 2018-04-15 03:38 | DI.VRAD_ITS ---
EXAM: CT Head Without Contrast EXAM DATE/TIME: 04/15/2018 2:08 AM CLINICAL HISTORY: 58 years old, female; Injury or trauma; Fall; Initial encounter; Blunt trauma (contusions or hematomas); Consciousness not specified; Orbit/periorbital; Left; Injury date: 04/15/2018 TECHNIQUE: Axial computed tomography images of the head/brain without contrast. All CT scans at this facility use at least one of these dose optimization techniques: automated exposure control; mA and/or kV adjustment per patient size (includes targeted exams where dose is matched to clinical indication); or iterative reconstruction. Coronal and sagittal reformatted images were created and reviewed. COMPARISON: CT Private^HEAD FACE CSPINE (Adult) 03/24/2018 9:12 PM FINDINGS: Brain: Normal. No hemorrhage. No significant white matter disease. No edema. Ventricles: Normal. No ventriculomegaly. Bones/joints: Unremarkable. No acute fracture. Sinuses: Visualized sinuses are unremarkable. No acute sinusitis. Mastoid air cells: Visualized mastoid air cells are unremarkable. No mastoid effusion. Soft tissues: Unremarkable. IMPRESSION: No acute intracranial abnormality. EXAM: CT Maxillofacial Without Contrast EXAM DATE/TIME: 04/15/2018 2:08 AM CLINICAL HISTORY: 58 years old, female; Injury or trauma; Fall; Initial encounter; Blunt trauma (contusions or hematomas); Consciousness not specified; Orbit/periorbital; Left; Injury date: 04/15/2018 TECHNIQUE: Axial computed tomography images of the face without intravenous contrast. All CT scans at this facility use at least one of these dose optimization techniques: automated exposure control; mA and/or kV adjustment per patient size (includes targeted exams where dose is matched to clinical indication); or iterative reconstruction. Coronal and sagittal reformatted images were created and reviewed. COMPARISON: CT Private^HEAD FACE CSPINE (Adult) 03/24/2018 9:12 PM FINDINGS: Orbits: No acute intraorbital abnormality. Globes are unremarkable. Sinuses: Normal. No air-fluid levels. Bones/joints: No acute fracture. Soft tissues: Left-sided predominant facial soft tissue swelling with focal pre-maxillary hematoma. IMPRESSION: Left-sided predominant facial soft tissue swelling with focal pre-maxillary hematoma. EXAM: CT Cervical Spine Without Contrast EXAM DATE/TIME: 04/15/2018 2:08 AM CLINICAL HISTORY: 58 years old, female; Injury or trauma; Fall; Initial encounter; Blunt trauma (contusions or hematomas); Consciousness not specified; Orbit/periorbital; Left; Injury date: 04/15/2018 TECHNIQUE: Axial computed tomography images of the cervical spine without intravenous contrast. All CT scans at this facility use at least one of these dose optimization techniques: automated exposure control; mA and/or kV adjustment per patient size (includes targeted exams where dose is matched to clinical indication); or iterative reconstruction. Coronal and sagittal reformatted images were created and reviewed. COMPARISON: CT Private^HEAD FACE CSPINE (Adult) 03/24/2018 9:12 PM FINDINGS: Vertebrae: No acute fracture. Normal alignment. Discs/Spinal canal/Neural foramina: Multilevel degenerative disk disease and facet arthropathy with neuroforaminal and canal stenosis. A Soft tissues: Unremarkable. Lungs: Lung apices are normal. IMPRESSION: No acute finding. Dictated and Authenticated by: Cole Perez MD. Ordering:JOEY Eldridge MD
--- NOTE | 2018-04-15 03:47 | NUR.NOTE ---
denies nausea and or double vision. MD into approximate laceration Nursing Note:
--- NOTE | 2018-04-15 04:10 | NUR.NOTE ---
patient ambulated steadily to restroom, patient drinking po fluids Nursing Note:
--- NOTE | 2018-04-15 04:17 | NUR.NOTE ---
patient refused tdap vaccine, patient educated on Tdap and patient still declined, MD aware, IV dc'd Nursing Note:
[2018-04-15 04:32] VITALS: BP 105/71; PULSE 100; RESP 16; O2SAT 95
--- NOTE | 2018-04-15 04:36 | NUR.NOTE ---
patient will be waiting in waiting room for cab ride Nursing Note:
== END 2018-04-15 04:30 | disposition home or self-care (01) ==
PROVIDERS: Emergency Provider Emergency Medicine; PCP Nurse Practitioner
DX: S00.83XA Contusion of other part of head, initial encounter (principal); S01.21XA Laceration without foreign body of nose, initial encounter; S00.531A Contusion of lip, initial encounter; F10.120 Alcohol abuse with intoxication, uncomplicated; W01.0XXA Fall on same level from slipping, tripping and stumbling without subsequent striking against object, initial encounter
CPT/HCPCS: 12011; 99284; 70450; 70486; 72125

== ENCOUNTER 2018-11-22 19:00 | Inpatient (IN) | payer OTHER, SELFPAY ==
[2018-11-22] VITALS (44 sets, daily range): BP systolic 79–114; BP diastolic 52–82; PULSE 82–140; RESP 16–32; TEMP 36.5; O2SAT 91–97
--- NOTE | 2018-11-22 19:24 | W.ED.GENAD ---
Discharge Plan Disposition Patient Disposition: [facility] INPATIENT Condition: Poor Discharge Details Chief Complaint: Chest Pain Clinical Impression: Chest pain, Atrial fibrillation with RVR, Alcohol abuse Primary Care Provider: Amarilys Barrera ED Provider: Chente Toro Home Meds and New Rx's Prescriptions: No Action aspirin, buffered 325 MG tablet 650 mg PO Q20MIN PRNRF: 0 citalopram 20 MG tablet 20 mg PO DAILY Qty: 90 RF: 3 Medical Decision Making <Cole Barkley MD - Last Filed: 11/22/18 19:43> 58 yo female with hx of alcohol abuse (drinks 6 beers a day per pt), smoker, who comes in with feeling chest pain with deep breaths for several days and tonight had jaw pain so she called ems. EMS states she wsa in afib with rates in the 150's so gave her 20mg IV diltizaem and heart rate decreased to 90-110 and also gave her 324mg asa. . She arrives in no distress stating she has pain with deep breathing and has no known history of afib or heart disease. EKG shows no significant ischemic pathology on ekg, rates still in the 90-110 range in afib. Will evaluate for acs, heart score is 3. She is wells score moderate for her HR and her pleuritic pain. Will give oral cardizem as herat rate well controlled after IV dilt Heart rate increased to 130, hd stable otherwise, will give 10mg IV diltiazem pt will be signed out pending lab work and imaging results. pt's hr now in the 80-100 range and stable Differential Diagnosis Differential Diagnosis: nstemi, afib, PE ECG Data Attestation: I personally reviewed and interpreted this ECG (s) as follows: Prior ECG tracings: not available for review Interpretation: afib, rate of 119, qtc 459, no acute ischemic findings <Chente Toro MD - Last Filed: 11/22/18 22:34> Patient signed out to me pending return of laboratory studies and CT scan. She had called EMS for chest pain and neck pain. She was found to be in rapid A. fib. She has received 20 mg of IV Cardizem by EMS and 10 mg of IV Cardizem here. Her rate for the most part has been around 100. She has received oral Cardizem CD 120 mg. She does not have previous history of A. fib. Laboratory studies show normal white count, hemoglobin and platelet count. Chemistries are unremarkable. Potassium magnesium and calcium are all on the low normal side. Liver function is slightly elevated consistent with her alcohol use. Troponin is negative. Lipase is mildly elevated. Alcohol level is around 250. Clinically she appears sober. CT scan is negative for pulmonary embolus or consolidation. She does have evidence of some air trapping as well as multiple small nodules which will need outpatient follow-up at some point. Case discussed with hospitalist for admission to ICU for new onset rapid A. fib as well as potential for significant alcohol withdrawal. Will start banana bag here. Patient accepted for admission to hospitalist service. Medical Records Medical records reviewed: Yes I reviewed the patient's medical records. Lab Data Lab results reviewed: Yes I reviewed the patient's lab results. HPI <Cole Barkley MD - Last Filed: 11/22/18 19:43> General Mode of arrival: EMS. Date/Time Provider Initiated Documentation: 11/22/18 19:08. Limitations to Documentation: no limitations. Information obtained by: patient. History of Present Illness 58 year old F presents to the emergency department with the chief complaint of chest pain, described as moderate, and it has been constant. No relieving factors improve symptom(s), Other factors that worsen symptoms (deep breathing) . Patient did receive the following treatments prior to arrival, none Related Data Home Medications Medication Instructions Recorded Confirmed aspirin, buffered 650 mg PO Q20MIN PRN tab 09/25/15 11/22/18 citalopram 20 mg PO DAILY #90 tab-cap 07/07/17 11/22/18 Previous Rx's Medication Instructions Recorded citalopram 20 mg PO DAILY #90 tab-cap 07/07/17 Allergies Allergy/AdvReac Type Severity Reaction Status Date / Time No Known Allergies Allergy Unverified 04/15/18 01:30 General Stated Complaint: Chest Pain DANNY: 2 Review of Systems <Cole Barkley MD - Last Filed: 11/22/18 19:43> Review of Systems ROS Unobtainable: All systems reviewed & are unremarkable except as noted in HPI and below Constitutional Constitutional: Denies chills, Denies fever(s) and Denies weakness ENT Ears, Nose, Mouth, and Throat: Denies change in voice Respiratory Respiratory: Denies cough Gastrointestinal Gastrointestinal: Denies abdominal pain, Denies nausea and Denies vomiting Musculoskeletal Musculoskeletal: Denies joint swelling Neurologic Neurologic: Denies weakness PFSH <Cole Barkley MD - Last Filed: 11/22/18 19:43> Surgical History bunionectomy (Inactive) lamontangen a few years ago 2005ish Family History Mother Diabetes Essential hypertension Personal history of malignant neoplasm lung, breast CA Father No problems noted. Sister Essential hypertension Sister No problems noted. Brother No problems noted. Maternal Aunt Personal history of malignant neoplasm breast Social History Smoking/Tobacco Use Status: Current every day Tobacco Type: cigarettes Alcohol Intake: current Alcohol type: beer Drug use: Never Substance use type: does not use Details: 4 24 oz beers today Household members: significant other Do you feel safe at home: Yes Do you feel safe in your relationship?: Yes Exam <Cole Barkley MD - Last Filed: 11/22/18 19:43> Const General: no acute distress Orientation: alert HENMT Head: normal to inspection Ears: external ears normal General nose exam: external nose normal Mouth: moist mucous membranes Eyes General: appearance normal, both eyes and all related structures Neck Neck: normal visual inspection Resp Effort & Inspection: normal respiratory effort and able to speak in complete sentences Cardio Rate: tachycardic Skin General skin exam: no rashes or lesions noted Neuro General: alert and oriented x3 Extrem General: normal to inspection Psych Mental Status: mental status grossly normal Course <Cole Barkley MD - Last Filed: 11/22/18 19:43> Vital Signs Vital signs: Vital Signs Temperature 36.5 C 11/22/18 19:12 Pulse 112 H 11/22/18 19:12 Respiratory Rate 20 11/22/18 19:12 Blood Pressure 96/66 L 11/22/18 19:12 Pulse Oximetry 95 11/22/18 19:12 Temperature 36.5 C 11/22/18 19:12 Temperature Source Temporal Artery Scan 11/22/18 19:12 Pulse 112 H 11/22/18 19:12 Respiratory Rate 16 11/22/18 19:21 Respiratory Effort 11/22/18 19:21 Respiratory Depth Normal 11/22/18 19:21 Respiratory Pattern Normal 11/22/18 19:21 Blood Pressure 96/66 L 11/22/18 19:12 Blood Pressure Position Supine 11/22/18 19:12 Pulse Oximetry 95 11/22/18 19:12 Oxygen Delivery Method Room Air 11/22/18 19:12 Oxygen Flow Rate 0 11/22/18 19:12 Pain Level 7 11/22/18 19:12 Critical Care Time <Cole Barkley MD - Last Filed: 11/22/18 19:43> Critical Care Time Critical Care Time: Yes Total Critical Care Time: 45 (minutes) Attestation: time spent giving IV diltiazem, frequent reassessments, hd monitoring in patient with atrial fibrillation with rvr Sign Out <Cole Barkley MD - Last Filed: 11/22/18 19:43> Sign Out Data: Sign Out Comment: afib with rvr and pleuritic chest pain, follow up on labs and imaging results Last updated by Cole Barkley MD at 11/22/18 19:45
[2018-11-22 19:36] LABS: Abs Immature Grans 0.01 k/cumm (0.0-0.09); Absolute Basophil Count 0.04 k/cumm (0.0-0.2); Absolute Eosinophil Count 0.03 k/cumm (0.0-0.7); Absolute Lymphocyte Count 0.99 k/cumm (1.2-3.4); Absolute Monocyte Count 1.07 k/cumm (0.11-0.7); Absolute Neutrophil Count 3.25 k/cumm (1.2-6.7); Basophils % 0.7; Eosinophils % 0.6; HCT 37.4 % (36.0-46.0); HGB 13.5 g/dL (12.0-15.5); Immature Grans % 0.2; Lymphocytes % 18.4; Mean Corp. HGB Concentration 36.1 g/dL (32.0-36.0); Mean Corpuscular Hemoglobin 36.5 pg (27.0-33.0); Mean Corpuscular Volume 101.1 fL (80-95); Mean Platelet Volume 9.7 fL (8.0-11.0); Monocytes % 19.9; Neutrophils % 60.2; Platelet Count 156 x1000/uL (130-400); RBC Distribution Width 13.1 % (11.7-14.6); White Blood Cell Count 5.39 k/cumm (4.4-10.8)
[2018-11-22] MEDS: dilTIAZem 25 MG/5 ML VIAL 10 MG IVP (19:38)
[2018-11-22] MEDS: Normal Saline 1,000 ML 1000 ML IV (19:39)
[2018-11-22 19:50] LABS: INR 1.1 (0.9-1.1); PTT Activated 28.2 sec (21.0-31.4); Prothrombin Time 10.9 sec (9.3-11.0)
[2018-11-22 19:56] LABS: ETHANOL BLOOD 257.4 mg/dL (<3); Magnesium 1.8 mg/dL (1.8-2.4)
[2018-11-22 19:58] LABS: Troponin I < 0.05 ng/mL (0.00-0.06)
[2018-11-22 20:00] LABS: Lipase 427 U/L (73-393); NT-proBNP 356 pg/mL
[2018-11-22] MEDS: Omnipaque 350 MG/ML 100 ML BTL IJ (20:02)
--- NOTE | 2018-11-22 20:05 | DI.CT_ITS ---
EXAM: CT CHEST PE CTA CLINICAL HISTORY: pleuritic chest pain, tachycardia. TECHNIQUE: The study was carried out with an intravenous administration of 100 cc of Omnipaque 350. COMPARISON: No exams were available for comparison FINDINGS: There is no evidence of PE. There is no aortic aneurysm or dissection. There may be minor areas of air trapping. There is no infiltrate. There are scattered very tiny subcentimeter nodules. There is no pneumothorax or pleural effusion. The heart is not enlarged. The liver is fatty. There are no enla rged lymph nodes. No acute bony abnormality is seen. The soft tissues are intact. IMPRESSION: No evidence of PE, additional findings as noted above.
[2018-11-22] MEDS: dilTIAZem CD 180 MG CAPCR PO (20:09)
--- NOTE | 2018-11-22 20:22 | DI.VRAD_ITS ---
PROCEDURE INFORMATION: Exam: CT Angiography Chest With Contrast Exam date and time: 11/22/2018 19:57 Clinical history: 58 years old, female; Chest pain; Other: Pleuritic cp with tachycardia TECHNIQUE: Imaging protocol: Computed tomographic angiography of the chest with intravenous contrast. 3D rendering: MIP reconstructed images were created and reviewed. Radiation optimization: All CT scans at this facility use at least one of these dose optimization techniques: automated exposure control; mA and/or kV adjustment per patient size (includes targeted exams where dose is matched to clinical indication); or iterative reconstruction. Contrast material: [id number]; Contrast volume: 85 ml; Contrast route: IV RT FOREARM 18G; COMPARISON: No relevant prior studies available. FINDINGS: Pulmonary arteries: Scattered minor subsegmental microatelectasis. Aorta: No aortic aneurysm. No aortic dissection. Lungs: Minor areas of air trapping may be present. No airspace consolidation. Scattered very tiny subcentimeter nodules. Statistically probably benign. Follow-up as per institutional protocol. Pleural space: No pneumothorax. No pleural effusion. Heart: Mild cardiomegaly. Liver: The visualized liver is fatty. Lymph nodes: No enlarged lymph nodes. Bones/joints: No acute fracture. Soft tissues: No suspicious lesions. IMPRESSION: 1. No pulmonary emboli are seen. 2. Minor areas of air trapping may be present. 3. Scattered minor subsegmental microatelectasis. 4. Incidental findings as described. Dictated and Authenticated by: Patricia Vanessa MD. Ordering:JAYRO Galvan MD
[2018-11-22 20:52] LABS: ALT 152 U/L (14-59); AST 335 U/L (15-37); Albumin 2.8 g/dL (3.4-5.0); Alkaline Phosphatase 258 U/L (46-116); Anion Gap 12.4 mmol/L (3-11); BUN 3 mg/dL (7-18); Bilirubin, Total 0.5 mg/dL (0.2-1.0); CO2 22.6 mmol/L (21.0-32.0); CREATININE 0.59 mg/dL (0.55-1.02); Calcium 8.5 mg/dL (8.5-10.1); Chloride 102 mmol/L (98-107); Glucose 103 mg/dL (70-100); Potassium 3.5 mmol/L (3.5-5.1); Sodium 137 mmol/L (136-145); Total Protein 7.5 g/dL (6.4-8.2)
--- NOTE | 2018-11-22 22:10 | HPE_ITS ---
Date of service: 11/22/18 Time of Service: 22:09 Assessment and Plan Assessment and plan (1) Atrial fibrillation with rapid ventricular response: Status: Acute Assessment and plan: She is admitted to the intensive care unit for close monitoring. She received IV diltiazem followed by an oral dose of diltiazem. Her rate is currently adequately controlled. We will set up for echocardiogram in the a.m. She will likely benefit from long-term anticoagulation but because of her underlying alcoholism compliance and risk of GI bleeding need to be considered. (2) Chest pain: Status: Resolved Assessment and plan: Patient complained of chest pain. Given her rapid atrial fibrillation this could be rate related ischemia. We will trend her troponins. (3) Alcohol abuse: Status: Acute Assessment and plan: Patient drinks 4 or 5 25 ounce beers per day. She says she is been through rehab 6 times. She denies ever having had seizures or significant alcohol withdrawal symptoms. Will monitor on CIWA scoring system and use lorazepam to control her symptoms. (4) Tobacco abuse: Status: Acute Assessment and plan: Patient smokes on a daily basis. She had a CT angiogram to rule out pulmonary embolism. There were scattered less than 1 cm nodules that were likely benign throughout her lungs. These would need further follow-up as an outpatient. History of Present Illness History of Present Illness Chief Complaint: Atrial fibrillation/chest pain/alcoholism Narrative: This is a 58-year-old woman with a long history of alcoholism that presents to the emergency room this evening with chest pain. Evaluation in the emergency room reveals an intoxicated woman with a heart rate in the 150s. EKG reveals rapid atrial fibrillation. She receives a bolus of diltiazem 20 mg IV followed by 10 mg IV. Her heart rate slows to the 100s. She is pain-free. Initial troponin is less than 0.05. Her alcohol level is 250. Her LFTs are elevated which is her baseline. Her potassium is 3.5. She is admitted to the ICU for close monitoring. Given her alcoholism there is a high likelihood she will undergo alcohol withdrawal which will likely exacerbate her atrial fibrillation. Review of Systems Review of Systems Narrative: Patient offers no complaints, wonders what all the fuss is about. Constitutional Constitutional: Denies excessive sweating, Reports frequent falls and Denies headache(s) Eyes Eyes: Reports system reviewed and no additional complaints, except as docu ENT Ears, Nose, Mouth, and Throat: Denies headache(s) and Denies throat swelling Cardiovascular Cardiovascular: Reports chest pain (Diminished since arrival), Denies edema, Denies dyspnea, Denies dyspnea on exertion, Denies orthopnea and Reports other Comments: Jaw pain Respiratory Respiratory: Denies change in phlegm color, Denies cough, Denies excessive phlegm production, Denies dyspnea and Denies dyspnea on exertion Gastrointestinal Gastrointestinal: Denies diarrhea, Denies nausea and Denies vomiting Genitourinary Genitourinary: Denies urinary frequency and Denies urinary incontinence Musculoskeletal Musculoskeletal: Reports back pain and Denies deformity Integumentary/Breasts Skin/Breast: Denies rash, Denies sores and Denies wounds Neurologic Neurologic: Denies confusion, Reports frequent falls, Denies headache(s), Denies focal weakness and Denies sensory deficit Psychiatric Psychiatric: Denies confusion, Reports depression and Denies suicidal ideation Endocrine Endocrine: Denies cold intolerance and Denies excessive sweating Hematologic/Lymphatic Hematologic/Lymphatic: Denies easy bleeding and Denies easy bruising Allergic/Immunologic Allergic/Immunologic: Denies urticaria and Denies throat swelling [facility] Medical History Alcohol abuse (Chronic) SAH (subarachnoid hemorrhage) (Inactive) Surgical History bunionectomy (Inactive) lamontangen a few years ago 2005ish Family History Mother Diabetes Essential hypertension Personal history of malignant neoplasm lung, breast CA Father No problems noted. Sister Essential hypertension Sister No problems noted. Brother No problems noted. Maternal Aunt Personal history of malignant neoplasm breast Social History Smoking/Tobacco Use Status: Current every day Tobacco Type: cigarettes Alcohol Intake: current Alcohol type: beer Drug use: Never Substance use type: does not use Details: 4 24 oz beers today Household members: significant other Do you feel safe at home: Yes Do you feel safe in your relationship?: Yes Meds Home Medications and Allergies Home Medications Medication Instructions Recorded Confirmed Type aspirin, buffered 650 mg PO Q20MIN PRN tab 09/25/15 11/22/18 History citalopram 20 mg PO DAILY #90 tab-cap 07/07/17 11/22/18 Rx diltiazem HCl [Cardizem CD] 240 mg PO DAILY #30 cap 11/24/18 Rx Allergies Allergy/AdvReac Type Severity Reaction Status Date / Time No Known Allergies Allergy Unverified 04/15/18 01:30 Exam Narrative Exam Narrative: Patient lying comfortably on the stretcher. She had no resp iratory distress. She was not complaining of any active chest pain during my exam. She did not complain of any jaw pain or discomfort. Her heart rate was in the low 100s and irregular. Const General: not diaphoretic, disheveled and intoxicated appearing Nutritional Appearance: average body habitus Orientation: alert, awake, oriented to person and oriented to place [facility] Head: normal to inspection Ears: hearing grossly normal bilaterally General nose exam: external nose normal Face and sinus: normal facial exam Eyes General: appearance normal, both eyes and all related structures Neck Neck: normal visual inspection Chest Chest: normal inspection of the chest Resp Effort & Inspection: normal respiratory effort Auscultation: clear to auscultation bilaterally Cardio Rhythm: abnormal rhythm irregularly irregular Heart Sounds: no murmurs GI Palpation: soft and nontender Back/Spine/Pelvis Thoracic/Lumbar Spine: thoracic and lumbar spine normal to inspection Skin General skin exam: no rashes or lesions noted Neuro General: alert and awake Cranial Nerves: CN's II-XI intact bilaterally Speech: speech normal Motor: muscle tone normal throughout Sensory Exam: no sensory deficits noted Extrem General: no clubbing, cyanosis or edema Psych Appearance: disheveled Mental Status: mental status grossly normal Speech and Movement: speech and movement normal Mood: congruent mood Affect: indifferent Attitude: cooperative Thought Process: normal Insight: fair Results Labs Result diagrams: 11/23/18 06:40 11/24/18 06:25 Labs: Laboratory Results - last 24 hr 11/22/18 11/22/18 11/22/18 19:30 19:30 19:30 WBC 5.39 RBC 3.70 L Hgb 13.5 Hct 37.4 MCV 101.1 H MCH 36.5 H MCHC 36.1 H RDW 13.1 Plt Count 156 MPV 9.7 Immature Gran % 0.2 Neutrophils % 60.2 Lymphocytes % 18.4 Monocytes % 19.9 Eosinophils % 0.6 Basophils % 0.7 Absolute Neutrophils 3.25 Absolute Lymphocytes 0.99 L Absolute Monocytes 1.07 H Absolute Eosinophils 0.03 Absolute Basophils 0.04 PT INR APTT Sodium Potassium Chloride Carbon Dioxide Anion Gap BUN Creatinine Estimated GFR/1.73 m2 Glucose Calcium Magnesium 1.8 Total Bilirubin AST ALT Alkaline Phosphatase Troponin I < 0.05 NT-Pro-B Natriuret Pep 356 H Total Protein Albumin Lipase 427 H Ethyl Alcohol 257.4 11/22/18 11/22/18 19:30 19:30 WBC RBC Hgb Hct MCV MCH MCHC RDW Plt Count MPV Immature Gran % Neutrophils % Lymphocytes % Monocytes % Eosinophils % Basophils % Absolute Neutrophils Absolute Lymphocytes Absolute Monocytes Absolute Eosinophils Absolute Basophils PT 10.9 INR 1.1 APTT 28.2 Sodium 137 Potassium 3.5 Chloride 102 Carbon Dioxide 22.6 Anion Gap 12.4 H BUN 3 L Creatinine 0.59 Estimated GFR/1.73 m2 >= 60.00 Glucose 103 H Calcium 8.5 Magnesium Total Bilirubin 0.5 AST 335 H ALT 152 H Alkaline Phosphatase 258 H Troponin I NT-Pro-B Natriuret Pep Total Protein 7.5 Albumin 2.8 L Lipase Ethyl Alcohol Last Vital Signs Temp 36.5 C 11/22/18 19:12 Pulse 104 H 11/22/18 21:15 Resp 17 11/22/18 20:15 BP 96/69 L 11/22/18 21:15 Pulse Ox 96 11/22/18 21:20
[2018-11-22] MEDS: MAGNESIUM SULFATE 8.12 MEQ, MULTIVITAMIN 10 ML, THIAMINE 100 MG, FOLIC ACID 1 MG in Nor... 168.867 MG IV (22:29)
[2018-11-22] MEDS: Acetaminophen 325 MG TAB PO (22:31)
[2018-11-23] VITALS (78 sets, daily range): BP systolic 84–123; BP diastolic 59–92; PULSE 65–160; RESP 11–46; TEMP 36.2–37.1; O2SAT 92–98
[2018-11-23 00:15] LABS: Troponin I < 0.05 ng/mL (0.00-0.06)
[2018-11-23 04:06] LABS: Troponin I < 0.05 ng/mL (0.00-0.06)
[2018-11-23] MEDS: LORazepam 1 MG TAB PO/SL ×3 (04:47→10:40)
[2018-11-23] MEDS: dilTIAZem CD 120 MG CAPCR PO (06:51)
[2018-11-23 07:32] LABS: Abs Immature Grans 0.02 k/cumm (0.0-0.09); Absolute Basophil Count 0.03 k/cumm (0.0-0.2); Absolute Eosinophil Count 0.02 k/cumm (0.0-0.7); Absolute Lymphocyte Count 0.57 k/cumm (1.2-3.4); Basophils % 0.5; Eosinophils % 0.4; HCT 38.8 % (36.0-46.0); HGB 13.6 g/dL (12.0-15.5); Immature Grans % 0.4; Lymphocytes % 10.3; Mean Corp. HGB Concentration 35.1 g/dL (32.0-36.0); Mean Corpuscular Hemoglobin 35.8 pg (27.0-33.0); Mean Corpuscular Volume 102.1 fL (80-95); Mean Platelet Volume 10.5 fL (8.0-11.0); Monocytes % 16.2; Neutrophils % 72.2; Platelet Count 151 x1000/uL (130-400); RBC Distribution Width 13.4 % (11.7-14.6); White Blood Cell Count 5.54 k/cumm (4.4-10.8)
[2018-11-23] MEDS: Citalopram 20 MG TAB PO (07:59)
--- NOTE | 2018-11-23 08:36 | PGE_ITS ---
Date of Service Date of service: 11/23/18 Time of Service: 18:59 Assessment and Plan Assessment and plan (1) Atrial fibrillation with rapid ventricular response: Status: Acute Assessment and plan: Transition off of cardizem gtt to PO short acting cardizem. Poor candidate for anticoagulation given history of falls, subarachnoid hemorrhage in the past, alcoholism. Cardiology consulted. (2) Chest pain: Status: Acute Assessment and plan: Agree that chest pain could be due to ischemia, symptomatic Afib, also GERD. No evidence of ACS by troponins. She could likely benefit from a stress test once she is done withdrawing from alcoho. (3) Alcohol abuse: Status: Acute Assessment and plan: With alcohol withdrawal. Continue to monitor in the ICU on CIWA, provide MVI, thiamine. Check B12/folate levels. *Patient drinks 4 or 5 25 ounce beers per day. She says she is been through rehab 6 times. She denies ever having had seizures or significant alcohol with drawal symptoms. (4) Tobacco abuse: Status: Acute Assessment and plan: Provide nicotine replacement therapy (5) Pulmonary nodules: Status: Acute Assessment and plan: Will need outpatient follow up. Also, start PPI in case these nodules are scarring from reflux. (6) Transaminitis: Status: Acute Assessment and plan: Check US liver, hepatitis studies. (7) DVT prophylaxis: Status: Acute Assessment and plan: TEDs + SCD's. No chemical DVT ppx due to history of subarachnoid and our lack of knowledge if she has cirrhosis/varices (8) Discharge planning issues: Status: Acute Assessment and plan: Full code. Continue to monitor in ICU Subjective Subjective Interval history since last seen: CIWA 5:30 am was 15 - given 2 mg of PO ativan. 15 for anxiety, tremors, auditory hallucinations. At 8 am, only had tremors. Resumed on cardizem drip this morning for high heart rates (150's) despite having gotten 120 mg of cardizem. To nursing, c/o CP x 3 weeks, midsternal, worse with laying down, deep breath, cough. 900 cc over 8 hours out - clear. Having diarrhea. When I came to see the patient circa 1500, she was comfortably asleep and did not wake up for me. Exam Narrative Exam Narrative: General: Middle-aged female, comfortably asleep in bed HEENT: eyes closed, MMM Heart: irregularly irregular rhythm, no m/r/g Lungs: CTAB GI: abdomen is soft, nondistended Extremities: no e/c/c BLE's Objective Objective Clinical Data: Abnormal lab results 11/22/18 11/22/18 11/22/18 Range/Units 19:30 19:30 19:30 RBC 3.70 L (4.00-5.20) m/cumm MCV 101.1 H (80-95) fL MCH 36.5 H (27.0-33.0) pg MCHC 36.1 H (32.0-36.0) g/dL Absolute Lymphocytes 0.99 L (1.2-3.4) k/cumm Absolute Monocytes 1.07 H (0.11-0.7) k/cumm Anion Gap 12.4 H (3-11) mmol/L BUN 3 L (7-18) mg/dL Glucose 103 H (70-100) mg/dL AST 335 H (15-37) U/L ALT 152 H (14-59) U/L Alkaline Phosphatase 258 H (46-116) U/L NT-Pro-B Natriuret Pep 356 H ( - 299) pg/mL Albumin 2.8 L (3.4-5.0) g/dL Lipase 427 H (73-393) U/L 11/23/18 Range/Units 06:40 RBC 3.80 L (4.00-5.20) m/cumm MCV 102.1 H (80-95) fL MCH 35.8 H (27.0-33.0) pg MCHC (32.0-36.0) g/dL Absolute Lymphocytes 0.57 L (1.2-3.4) k/cumm Absolute Monocytes 0.90 H (0.11-0.7) k/cumm Anion Gap (3-11) mmol/L BUN (7-18) mg/dL Glucose (70-100) mg/dL AST (15-37) U/L ALT (14-59) U/L Alkaline Phosphatase (46-116) U/L NT-Pro-B Natriuret Pep ( - 299) pg/mL Albumin (3.4-5.0) g/dL Lipase (73-393) U/L Vital Signs Temperature 36.8 C 11/23/18 03:22 Temperature Source Temporal Artery Scan 11/23/18 03:22 Pulse 78 11/23/18 01:45 Pulse 101 H 11/23/18 01:45 Respiratory Rate 22 11/23/18 03:22 Respiratory Effort 11/23/18 03:22 Respiratory Depth Normal 11/23/18 03:22 Respiratory Pattern Tachypnea 11/23/18 03:22 Blood Pressure 112/80 11/23/18 03:22 Blood Pressure Mean 90 11/23/18 03:22 Blood Pressure Position Supine 11/22/18 19:12 Pulse Oximetry 95 11/23/18 03:22 Oxygen Delivery Method Room Air 11/23/18 03:22 Oxygen Flow Rate 0 11/23/18 03:22 Pain Level 4 11/23/18 03:22 Intake & Output 11/22/18 11/22/18 11/23/18 11:59 23:59 11:59 Intake Total 1300 / 1300 3026.4 / 3026.4 Output Total 400 / 400 2400 / 2400 Balance 900 / 900 626.4 / 626.4 Weight 71.1 kg 70.6 kg Intake: IV 1000 / 1000 3026.4 / 3026.4 Oral 300 / 300 Output: Urine 400 / 400 2400 / 2400 Other: Urine Color Light Kesha Light Kesha Urine Appearance Clear Clear Urine Odor None None Comment mixed w watery stool Voiding Methods Bedside Commode Bedside Commode Laboratory Results WBC 5.54 k/cumm (4.4-10.8) 11/23/18 06:40 RBC 3.80 m/cumm (4.00-5.20) L 11/23/18 06:40 Hgb 13.6 g/dL (12.0-15.5) 11/23/18 06:40 Hct 38.8 % (36.0-46.0) 11/23/18 06:40 MCV 102.1 fL (80-95) H 11/23/18 06:40 MCH 35.8 pg (27.0-33.0) H 11/23/18 06:40 MCHC 35.1 g/dL (32.0-36.0) 11/23/18 06:40 RDW 13.4 % (11.7-14.6) 11/23/18 06:40 Plt Count 151 x1000/uL (130-400) 11/23/18 06:40 MPV 10.5 fL (8.0-11.0) 11/23/18 06:40 Immature Gran % 0.4 11/23/18 06:40 Neutrophils % 72.2 11/23/18 06:40 Lymphocytes % 10.3 11/23/18 06:40 Monocytes % 16.2 11/23/18 06:40 Eosinophils % 0.4 11/23/18 06:40 Basophils % 0.5 11/23/18 06:40 Absolute Neutrophils 4.00 k/cumm (1.2-6.7) 11/23/18 06:40 Absolute Lymphocytes 0.57 k/cumm (1.2-3.4) L 11/23/18 06:40 Absolute Monocytes 0.90 k/cumm (0.11-0.7) H 11/23/18 06:40 Absolute Eosinophils 0.02 k/cumm (0.0-0.7) 11/23/18 06:40 Absolute Basophils 0.03 k/cumm (0.0-0.2) 11/23/18 06:40 PT 10.9 sec (9.3-11.0) 11/22/18 19:30 INR 1.1 (0.9-1.1) 11/22/18 19:30 APTT 28.2 sec (21.0-31.4) 11/22/18 19:30 Sodium 137 mmol/L (136-145) 11/22/18 19:30 Potassium 3.5 mmol/L (3.5-5.1) 11/22/18 19:30 Chloride 102 mmol/L (98-107) 11/22/18 19:30 Carbon Dioxide 22.6 mmol/L (21.0-32.0) 11/22/18 19:30 Anion Gap 12.4 mmol/L (3-11) H 11/22/18 19:30 BUN 3 mg/dL (7-18) L 11/22/18 19:30 Creatinine 0.59 mg/dL (0.55-1.02) 11/22/18 19:30 Estimated GFR/1.73 m2 >= 60.00 (mL/min/1.73m2) 11/22/18 19:30 Glucose 103 mg/dL (70-100) H 11/22/18 19:30 Calcium 8.5 mg/dL (8.5-10.1) 11/22/18 19: Magnesium 1.8 mg/dL (1.8-2.4) 11/22/18 19: Total Bilirubin 0.5 mg/dL (0.2-1.0) 11/22/18 19: AST 335 U/L (15-37) H 11/22/18:30 ALT 152 U/L (14-59) H 11/22/18:30 Alkaline Phosphatase 258 U/L (46-116) H 11/22/18: Troponin I < 0.05 ng/mL (0.00-0.06) 11/23/18 03:40 NT-Pro-B Natriuret Pep 356 pg/mL (-299) H 11/22/18 19:30 Total Protein 7.5 g/dL (6.4-8.2) 11/22/18: Albumin 2.8 g/dL (3.4-5.0) L 11/22/18: Lipase 427 U/L (73-393) H 11/22/18 19: Ethyl Alcohol 257.4 mg/dL (<3) 11/22/18 19:30 Echo: 1. Left ventricle: The cavity size was normal. Systolic function was hyperdynamic. The estimated ejection fraction was 65-70%. The study is not technically sufficient to allow evaluation of LV diastolic function. 2. Left atrium: The atrium was mildly dilated. 3. Right ventricle: The cavity size was normal. Wall thickness was normal. Systolic function was normal. 4. Atrial septum: No defect or patent foramen ovale was identified. 5. Pulmonary arteries: Pulmonary systolic pressure was >= 20mm Hg. 6. Inferior vena cava: Poorly visualized.
--- NOTE | 2018-11-23 08:40 | MERGE_ITS ---
*[facility]* *[facility]* [address] [place] [address] Date of study: 11/23/2018 Transthoracic Echocardiography M-mode, complete 2D, complete spectral Doppler, and color Doppler *STUDY CONCLUSIONS* Summary: 1. Left ventricle: The cavity size was normal. Systolic function was hyperdynamic. The estimated ejection fraction was 65-70%. The study is not technically sufficient to allow evaluation of LV diastolic function. 2. Left atrium: The atrium was mildly dilated. 3. Right ventricle: The cavity size was normal. Wall thickness was normal. Systolic function was normal. 4. Atrial septum: No defect or patent foramen ovale was identified. 5. Pulmonary arteries: Pulmonary systolic pressure was >= 20mm Hg. 6. Inferior vena cava: Poorly visualized. *PATIENT PRESENTATION* Height: 172.7cm (68in ) S/D Pressure: 112 / 80 Weight: 70.8kg (155.7lb ) BSA: 1.85m^2 Test start time: 08:40 AM. Test stop time: 09:30 AM. CONSULTING Cole Hurst, Cole Wilson [facility] [employer] Apoorva Hsu *PROCEDURE DATA* Procedure information: This study was interpreted by [facility]. Pertinent images and digital data are archived for permanent storage and are available for subsequent review. No prior study was available for comparison. Study status: Routine. Transthoracic echocardiography. M-mode, complete 2D, complete spectral Doppler, and color Doppler. A Transthoracic Echocardiogram was performed. Scanning was performed from the parasternal, apical, subcostal, and suprasternal notch acoustic windows. Images were obtained using an [employer] [id number] cardiac ultrasound machine. Image quality was adequate. Study completion: The patient tolerated the procedure well. History: PMH: New onset of Atrial Fibrillation. *CARDIAC ANATOMY* Left ventricle: The cavity size was normal. Systolic function was hyperdynamic. The estimated ejection fraction was 65-70%. The study is not technically sufficient to allow evaluation of LV diastolic function. Aortic valve: Doppler: There was no stenosis. There was no significant regurgitation. VTI ratio of LVOT to aortic valve: 1.07. Valve area (VTI): 4.2cm^2. Indexed valve area (VTI): 2.3cm^2/m^2. Peak velocity ratio of LVOT to aortic valve: 1.13. Valve area (Vmax): 4.4cm^2. Indexed valve area (Vmax): 2.4cm^2/m^2. Mean velocity ratio of LVOT to aortic valve: 0.9. Valve area (Vmean): 3.5cm^2. Indexed valve area (Vmean): 1.9cm^2/m^2. Mean gradient (S): 2.9mm Hg. Peak gradient (S): 3.9mm Hg. Aorta: Aortic root: The aortic root was normal in size. Ascending aorta: The ascending aorta was normal in size. Mitral valve: Doppler: There was no evidence for stenosis. There was no significant regurgitation. Valve area by pressure half-time: 5.8cm^2. Indexed valve area by pressure half-time: 3.1cm^2/m^2. Left atrium: The atrium was mildly dilated. Atrial septum: No defect or patent foramen ovale was identified. Right ventricle: The cavity size was normal. Wall thickness was normal. Systolic function was normal. Pulmonic valve: Doppler: There was no evidence for stenosis. There was no significant regurgitation. Peak gradient (S): 3.2mm Hg. Tricuspid valve: Doppler: There was trivial regurgitation. Pulmonary artery: Poorly visualized. Pulmonary systolic pressure was >= 20mm Hg. Right atrium: Poorly visualized. Pericardium: There was no pericardial effusion. Systemic veins: Inferior vena cava: Poorly visualized. Measurements Left ventricle Value Reference LV ID, ED, PLAX 4.4 cm 3.5 - 6.0 LV ID, ES, PLAX 2.6 cm 2.1 - 4.0 LV PW thickness, ED, PLAX 0.9 cm --------- LV end-diastolic volume, 1-p A2C 42 ml --------- LV ejection fraction, 1-p A2C 56 % --------- LV end-diastolic volume, 1-p A4C 51 ml --------- LV ejection fraction, 1-p A4C 49 % --------- LV e', medial 0.136 m/sec --------- LV E/e', medial 5 --------- Ventricular septum Value Reference IVS thickness, ED, PLAX 1.0 cm --------- LVOT Value Reference LVOT ID, A-P 2.2 cm --------- LVOT area 3.9 cm^2 --------- LVOT peak velocity, S 1.12 m/sec --------- LVOT mean velocity, S 0.73 m/sec --------- LVOT VTI, S 16.1 cm --------- LVOT peak gradient, S 5 mm Hg --------- LVOT mean gradient, S 2.5 mm Hg --------- Stroke volume (SV), LVOT DP 63 ml --------- Stroke index (SV/bsa), LVOT DP 34 ml/m^2 --------- Aortic valve Value Reference Aortic valve peak velocity, S 1 m/sec --------- Aortic valve mean velocity, S 0.8 m/sec --------- Aortic valve VTI, S 15.0 cm --------- Aortic mean gradient, S 2.9 mm Hg --------- Aortic peak gradient, S 3.9 mm Hg --------- VTI ratio, LVOT/AV 1.07 --------- Aortic valve area, VTI 4.2 cm^2 --------- Velocity ratio, peak, LVOT/AV 1.13 --------- Aortic valve area, peak velocity 4.4 cm^2 --------- Velocity ratio, mean, LVOT/AV 0.9 --------- Aortic valve area, mean velocity 3.5 cm^2 --------- Aortic valve area/bsa, mean velocity 1.9 cm^2/m^2 --------- Aorta Value Reference Aortic root ID, ED 2.9 cm --------- Ascending aorta ID, A-P, S 3.3 cm --------- Left atrium Value Reference LA ID, A-P, ES 3.4 cm --------- LA ID/bsa, A-P 1.9 cm/m^2 <=2.2 LA volume, ES, 2-p 78 ml --------- LA volume/bsa, ES, 2-p 42 ml/m^2 --------- LA/aortic root ratio 1.17 --------- Mitral valve Value Reference Mitral E-wave peak velocity 0.66 m/sec --------- Mitral deceleration time (L) 131 ms 150 - 230 Mitral pressure half-time 38 ms --------- Mitral valve area, PHT, DP 5.8 cm^2 --------- Tricuspid valve Value Reference Tricuspid regurg peak velocity 2.3 m/sec --------- Tricuspid peak RV-RA gradient 20.7 mm Hg --------- Pulmonic valve Value Reference Pulmonic peak gradient, S 3.2 mm Hg --------- Legend: (L) and (H) chayo values outside specified reference range. I have personally reviewed the images and have reviewed and edited the reported findings. Electronically signed by Cole Orellana MD 11/23/2018 12:26
[2018-11-23 08:46] LABS: ALT 136 U/L (14-59); AST 224 U/L (15-37); Albumin 2.7 g/dL (3.4-5.0); Alkaline Phosphatase 236 U/L (46-116); Anion Gap 12.3 mmol/L (3-11); BUN 2 mg/dL (7-18); Bilirubin, Total 0.9 mg/dL (0.2-1.0); CO2 23.7 mmol/L (21.0-32.0); CREATININE 0.49 mg/dL (0.55-1.02); Calcium 8.1 mg/dL (8.5-10.1); Chloride 103 mmol/L (98-107); Glucose 93 mg/dL (70-100); Magnesium 1.9 mg/dL (1.8-2.4); Potassium 3.4 mmol/L (3.5-5.1); Sodium 139 mmol/L (136-145); Total Protein 7.4 g/dL (6.4-8.2)
[2018-11-23] MEDS: Normal Saline Flush 10 ML SYR IVP (09:49)
[2018-11-23] MEDS: Nicotine 14 MG/24 HR PATCH TD (09:50)
[2018-11-23] MEDS: Pantoprazole 40 MG VIAL IVP (09:50)
[2018-11-23] MEDS: dilTIAZem 125 MG in Normal Saline 100 ML IV (09:51)
[2018-11-23] MEDS: Potassium Chloride 20 MEQ TABCR 40 MEQ PO (10:30)
--- NOTE | 2018-11-23 10:45 | PHARADMIT ---
Addendum entered by Uziel Mascorro III 11/24/18 09:46: Pharmacy Note Subjective MD reports AF under control, drip is off, CIWA scores are low Objective VS-OK Lytes-OK, LFTs up Wgt-71.5 kg BM-11/23 Assessment Coverted to oral Diltiazem,on CIWA vitamins Plan To transfer to the Med/Surg floor today Original Note: Admission Pharmacy Clinical Review AFIB/CHEST PAIN/ETOHism Code Status Full Code Current Weight 70.6 kg Renally Cleared and Narrow Therapeutic Index Meds CrCl ~75 QTc Value / Action Taken QTc 459 BP Control, Fever BP 104/64, HR 78 up to 141 Electrolytes reviewed Na 139, K+ 3.4, Mg 1.9 DVT Prophylaxis None Opiate Usage / Scheduled Bowel Regimen Ordered None, PRN Plt/SCr for Heparin / Enoxaparin Plt 151, Scr 0.49 INR for Warfarin H/H stable, WBC/Bands H/H 13.6/38.8 Antibiotic appropriateness Cultures and Sensitivities Surgical ABX d/c within 24 hr DM control / Insulin Dosing Heart Failure (Check EF%) (KENNETH's, B-Block, Diuretics) Starting on a dilt drip IV to PO Switch na Home Meds Reviewed yes Home Meds Not Ordered Comments CIWA score of 15 this am, will likely start librium Diltiazem drip started this AM as HR was not adequately controlled following IV + PO dose given in ED
[2018-11-23] MEDS: POTASSIUM CHLORIDE/0.9% NACL 1,000 ML 75 MEQ IV (15:37)
--- NOTE | 2018-11-23 17:19 | PDOC.CMIN ---
- If Service Date Differs Date of service: 11/23/18 Time of Service: 17:19 Care Management Initial Assess REASON FOR HOSPITALIZATION:: Atrial fibrillation with RVR PAST MEDICAL HISTORY/PAST SURGICAL HISTORY:: Alcohol abuse. subarachnoid hemorrhage PREVIOUS FUNCTIONAL STATUS/SOCIAL/FAMILY SUPPORTS:: Shantel lives in a single family home in [place]. with her significant other Andew that she has been with for 20 years. Shnatel has 2 children, a son and a daughter. She states that her daughter is a good support but not her son. 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 She is independent with ADLs and other activities. She does not own a car so transportation can be an issue. CURRENT FUNCTIONAL STATUS:: Shantel was sitting up in bed during CM visit. She admitted to being sleepy and required prompting to complete the conversation. She is hoping to be discharged soon she states. She denies having any community resources. ADVANCE DIRECTIVES:: none on file Has patient been provided with information about the portal?: No Did the patient sign up for the portal?: No CODE STATUS:: Full Code INSURANCE COVERAGE / FINANCIAL ISSUES:: Medicare. Medicaid CURRENT HOME/COMMUNITY SERVICES/EQUIPMENT:: none PRIMARY CARE PHYSICIAN:: Amarilys Barrera POTENTIAL DISCHARGE NEEDS:: Follow up with PCP and discharge plan of care PATIENT/FAMILY EDUCATION NEEDS:: Discharge plan, limitations, follow up plan, Ask Me Three. TRANSPORTATION:: via private vehicle with family PLAN:: Shantel remains ICU level of care. She will likely discharge home with no services when ready. CM will continue to support patient, family and discharge planning considerations.
[2018-11-23] MEDS: dilTIAZem 30 MG TAB PO (20:58)
[2018-11-24] VITALS (33 sets, daily range): BP systolic 109–142; BP diastolic 66–98; PULSE 69–140; RESP 15–35; TEMP 36.9; O2SAT 94–99
[2018-11-24] MEDS: dilTIAZem 30 MG TAB PO ×3 (02:36→13:52)
[2018-11-24] MEDS: POTASSIUM CHLORIDE/0.9% NACL 1,000 ML 75 MEQ IV (04:27)
[2018-11-24 07:20] LABS: Anion Gap 9.6 mmol/L (3-11); BUN 4 mg/dL (7-18); CO2 23.4 mmol/L (21.0-32.0); CREATININE 0.56 mg/dL (0.55-1.02); Calcium 8.1 mg/dL (8.5-10.1); Calculated LDL 56 mg/dL; Chloride 105 mmol/L (98-107); Cholesterol 120 mg/dL (50-200); Folate 17.8 ng/mL (8.6-20.0); Glucose 87 mg/dL (70-100); HDL Cholesterol 56 mg/dL (40-60); Magnesium 1.7 mg/dL (1.8-2.4); Potassium 4.2 mmol/L (3.5-5.1); Sodium 138 mmol/L (136-145); Triglyceride 43 mg/dL (30-150); Vitamin B12 933 pg/mL (193-986)
--- NOTE | 2018-11-24 08:00 | DI.US_ITS ---
EXAM: US ABDOMEN CLINICAL HISTORY: Transaminitis. TECHNIQUE: Ultrasound performed using standard protocol. COMPARISON: US ECHOCARDIOGRAM from 11/23/2018 FINDINGS: Liver shows increased echogenicity and decreased through transmission consistent with hepatic steatos is as noted on recent CT scan. There is no evidence of cholelithiasis or biliary dilatation. Note i s made, however, of pericholecystic edema. There is a negative sonographic Stanford sign. alternativ yfn, the findings could represent gallbladder wall thickening. Pancreas is grossly intact as visuali zed. Spleen is unremarkable in appearance. Kidneys appear normal. Abdominal aorta and IVC are of n ormal diameter. IMPRESSION: Conclusion no evidence of cholelithiasis. Gallbladder wall thickening versus pericholecystic edema. This is a nonspecific finding and could represent gallbladder wall inflammation may also be associa jonathan with other etiologies including hypoalbuminemia, CHF, etc. Have hepatic steatosis noted
--- NOTE | 2018-11-24 08:26 | PGE_ITS ---
Date of Service Date of service: 11/24/18 Time of Service: 08:26 Assessment and Plan Assessment and plan (1) Atrial fibrillation with rapid ventricular response: Status: Acute Assessment and plan: Start cardizem CD 240 mg PO daily. Poor candidate for anticoagulation given history of falls, subarachnoid hemorrhage in the past, alcoholism, noncompliance. Example: as I am writing this, the patient is threatening to leave AMA. (2) Chest pain: Status: Resolved Assessment and plan: Ddx: ischemia, symptomatic Afib, also GERD. No evidence of ACS by troponins. She could likely benefit from a stress test once she is done withdrawing from alcohol. (3) Alcohol abuse: Status: Acute Assessment and plan: With alcohol withdrawal. Continue to monitor on CIWA, provide MVI, thiamine. B12/folate wnl. Ok to transfer to [facility]. *Patient drinks 4 or 5 25 ounce beers per day. She says she is been through rehab 6 times. She denies ever having had seizures or significant alcohol withdrawal symptoms. (4) Tobacco abuse: Status: Acute Assessment and plan: Provide nicotine replacement therapy (5) Pulmonary nodules: Status: Acute Assessment and plan: Will need outpatient follow up. PPI started (in case nodules are scar tissue from chronic aspiration). (6) Transaminitis: Status: Acute Assessment and plan: US liver unremarkable. Hepatitis studies are pending. Could be alcoholic liver disease. (7) DVT prophylaxis: Status: Acute Assessment and plan: TEDs + SCD's. No chemical DVT ppx due to history of subarachnoid and our lack of knowledge if she has cirrhosis/varices (8) Discharge planning issues: Status: Acute Assessment and plan: Full code. Consider transfer out of ICU. Subjective Subjective Interval history since last seen: HR in the 80's overnight, mildly tachy this am. CIWA 0, 1, 4, 0 this am. The patient reports a rash on the surface of her R leg and also in her pubic region. Denies dizziness, chest pain, shortness of breath, palpitations, nausea, vomiting. Exam Narrative Exam Narrative: General: Middle-aged female, sitting at the side of the bed, A&OX3, tremulous HEENT: EOMI, MMM Heart: irregularly irregular rhythm, no m/r/g Lungs: CTAB GI: abdomen is soft, nondistended Extremities: no e/c/c BLE's Objective Objective Clinical Data: Abnormal lab results 11/23/18 11/24/18 Range/Units 06:40 06:25 Potassium 3.4 L (3.5-5.1) mmol/L Anion Gap 12.3 H (3-11) mmol/L BUN 2 L 4 L (7-18) mg/dL Creatinine 0.49 L (0.55-1.02) mg/dL Calcium 8.1 L 8.1 L (8.5-10.1) mg/dL Magnesium 1.7 L (1.8-2.4) mg/dL AST 224 H (15-37) U/L ALT 136 H (14-59) U/L Alkaline Phosphatase 236 H (46-116) U/L Albumin 2.7 L (3.4-5.0) g/dL Vital Signs Temperature 36.9 C 11/24/18 04:00 Temperature Source Temporal Artery Scan 11/24/18 04:00 Pulse 80 11/24/18 05:01 Pulse 79 11/24/18 05:01 Respiratory Rate 25 H 11/24/18 05:01 Respiratory Effort Non-Labored 11/24/18 04:00 Respiratory Depth Normal 11/24/18 04:00 Respiratory Pattern Normal 11/24/18 04:00 Blood Pressure 121/84 11/24/18 05:01 Blood Pressure Mean 93 11/24/18 05:01 Blood Pressure Position Supine 11/23/18 16:00 Pulse Oximetry 96 11/24/18 05:01 Oxygen Delivery Method Room Air 11/24/18 04:00 Oxygen Flow Rate 0 11/24/18 04:00 Pain Level 0 11/23/18 23:30 Intake & Output 11/23/18 11/23/18 11/24/18 11:59 23:59 11:59 Intake Total 3132.983 / 3800.066 667.083 / 3800.066 962.5 / 962.5 Output Total 2775 / 3725 950 / 3725 200 / 200 Balance 357.983 / 75.066 -282.917 / 75.066 762.5 / 762.5 Weight 70.6 kg 71.5 kg Intake: IV 3032.983 / 3100.066 67.083 / 3100.066 962.5 / 962.5 Oral 100 / 700 600 / 700 Output: Urine 2700 / 3550 850 / 3550 200 / 200 Stool 75 / 175 100 / 175 Other: Urine Color Light Kesha [place] Urine Appearance Clear Cloudy Cloudy Urine Odor Normal Strong Strong Comment Mixed with stool. amount approximated Stool Occult Blood Negative Stool Size Small Small Stool Characteristics Liquid Liquid Brown Brown Voiding Methods Bedside Commode Bedside Commode Laboratory Results WBC 5.54 k/cumm (4.4-10.8) 11/23/18 06:40 RBC 3.80 m/cumm (4.00-5.20) L 11/23/18 06:40 Hgb 13.6 g/dL (12.0-15.5) 11/23/18 06:40 Hct 38.8 % (36.0-46.0) 11/23/18 06:40 MCV 102.1 fL (80-95) H 11/23/18 06:40 MCH 35.8 pg (27.0-33.0) H 11/23/18 06:40 MCHC 35.1 g/dL (32.0-36.0) 11/23/18 06:40 RDW 13.4 % (11.7-14.6) 11/23/18 06:40 Plt Count 151 x1000/uL (130-400) 11/23/18 06:40 MPV 10.5 fL (8.0-11.0) 11/23/18 06:40 Immature Gran % 0.4 11/23/18 06:40 Neutrophils % 72.2 11/23/18 06:40 Lymphocytes % 10.3 11/23/18 06:40 Monocytes % 16.2 11/23/18 06:40 Eosinophils % 0.4 11/23/18 06:40 Basophils % 0.5 11/23/18 06:40 Absolute Neutrophils 4.00 k/cumm (1.2-6.7) 11/23/18 06:40 Absolute Lymphocytes 0.57 k/cumm (1.2-3.4) L 11/23/18 06:40 Absolute Monocytes 0.90 k/cumm (0.11-0.7) H 11/23/18 06:40 Absolute Eosinophils 0.02 k/cumm (0.0-0.7) 11/23/18 06:40 Absolute Basophils 0.03 k/cumm (0.0-0.2) 11/23/18 06:40 PT 10.9 sec (9.3-11.0) 11/22/18 19:30 INR 1.1 (0.9-1.1) 11/22/18 19:30 APTT 28.2 sec (21.0-31.4) 11/22/18 19:30 Sodium 138 mmol/L (136-145) 11/24/18 06:25 Potassium 4.2 mmol/L (3.5-5.1) D 11/24/18 06:25 Chloride 105 mmol/L (98-107) 11/24/18 06:25 Carbon Dioxide 23.4 mmol/L (21.0-32.0) 11/24/18 06:25 Anion Gap 9.6 mmol/L (3-11) 11/24/18 06:25 BUN 4 mg/dL (7-18) L 11/24/18 06:25 Creatinine 0.56 mg/dL (0.55-1.02) 11/24/18 06:25 Estimated GFR/1.73 m2 >= 60.00 (mL/min/1.73m2) 11/24/18 06:25 Glucose 87 mg/dL (70-100) 11/24/18 06:25 Calcium 8.1 mg/dL (8.5-10.1) L 11/24/18 06:25 Magnesium 1.7 mg/dL (1.8-2.4) L 11/24/18 06:25 Total Bilirubin 0.9 mg/dL (0.2-1.0) 11/23/18 06:40 AST 224 U/L (15-37) H 11/23/18 06:40 ALT 136 U/L (14-59) H 11/23/18 06:40 Alkaline Phosphatase 236 U/L (46-116) H 11/23/18 06:40 Troponin I < 0.05 ng/mL (0.00-0.06) 11/23/18 03:40 NT-Pro-B Natriuret Pep 356 pg/mL (-299) H 11/22/18 19:30 Total Protein 7.4 g/dL (6.4-8.2) 11/23/18 06:40 Albumin 2.7 g/dL (3.4-5.0) L 11/23/18 06:40 Triglycerides 43 mg/dL (30-150) 11/24/18 06:25 Total Cholesterol 120 mg/dL (50-200) 11/24/18 06:25 LDL Cholesterol, Calc 56 mg/dL 11/24/18 06:25 HDL Cholesterol 56 mg/dL (40-60) 11/24/18 06:25 Lipase 427 U/L (73-393) H 11/22/18 19:30 Vitamin B12 933 pg/mL (193-986) 11/24/18 06:25 Folate 17.8 ng/mL (8.6-20.0) 11/24/18 06:25 Ethyl Alcohol 257.4 mg/dL (<3) 11/22/18 19:30 US abdomen: Conclusion no evidence of cholelithiasis. Gallbladder wall thickening versus pericholecystic edema. This is a nonspecific finding and could represent gallbladder wall inflammation may also be associated with other etiologies including hypoalbuminemia, CHF, etc. Have hepatic steatosis noted. US echo: 1. Left ventricle: The cavity size was normal. Systolic function was hyperdynamic. The estimated ejection fraction was 65-70%. The study is not technically sufficient to allow evaluation of LV diastolic function. 2. Left atrium: The atrium was mildly dilated. 3. Right ventricle: The cavity size was normal. Wall thickness was normal. Systolic function was normal. 4. Atrial septum: No defect or patent foramen ovale was identified. 5. Pulmonary arteries: Pulmonary systolic pressure was >= 20mm Hg. 6. Inferior vena cava: Poorly visualized.
[2018-11-24 08:27] LABS: ALT 116 U/L (14-59); AST 194 U/L (15-37); Albumin 2.5 g/dL (3.4-5.0); Alkaline Phosphatase 217 U/L (46-116); Bilirubin, Direct 0.56 mg/dL (0.00-0.20); Bilirubin, Total 1.3 mg/dL (0.2-1.0); Total Protein 6.8 g/dL (6.4-8.2)
[2018-11-24] MEDS: Citalopram 20 MG TAB PO (08:45)
[2018-11-24] MEDS: Multivitamin TAB 1 TAB PO (08:45)
[2018-11-24] MEDS: Thiamine 100 MG TAB PO (08:45)
[2018-11-24] MEDS: MAGNESIUM SULFATE 2 GM/50 ML BAG IVPB (08:49)
[2018-11-24] MEDS: Pantoprazole 40 MG VIAL IVP (10:38)
[2018-11-24] MEDS: LORazepam 1 MG TAB PO/SL (12:29)
--- NOTE | 2018-11-24 12:48 | PDOC.CMPRO ---
Care Management Progress Note S/O-Met with Shatnel and her two sisters who were present when CM arrived. Shantel stated I need to figure out what I'm going to do. You can speak here with my sisters present. One sister outlined their concern re her problem with ETOH, which Shantel confirmed. She informed CM she has been to rehab x5, the last time being in July 2018 at [facility]. When questioned about her aftercare plan after that d/c, she indicated she saw a counselor at [facility] for a while, but then stopped going. She has since then slipped back to her old drinking habits. Family concerned and she understands their concern. She just is not sure which way to go. She never went to any meetings after her d/c from . Suggested to her that she consider having a Structural Analysis Engineer come see her while she was hospitalized. She was receptive to this, but preferred that it be tomorrow and not today as I am all talked out for the day. Discussed role that her use of alcohol plays with her health. Contacted the [facility] and requested a Structural Analysis Engineer see her tomorrow. They are arranging for someone to see her tomorrow. Gave Shantel a brochure on the Structural Analysis Engineer Program. A-58 yo woman admitted with a-fib, chest pain and alcoholism. P-She remains at acute LOC. Possible transfer to M/S status later today. She will work with Structural Analysis Engineer for support re SA and develop plan with gymnastic coach for her sobriety. No other services anticipated. Will transport either via car with SO vs using [facility] transport.
--- NOTE | 2018-11-24 19:28 | W.PM.DS.N ---
Date of service: 11/24/18 Time of Service: 19:28 DS: Diagnosis Discharge Diagnosis (1) Atrial fibrillation with rapid ventricular response: Status: Acute (2) Chest pain: Status: Resolved (3) Alcohol abuse: Status: Acute (4) Tobacco abuse: Status: Acute (5) Pulmonary nodules: Status: Acute (6) Transaminitis: Status: Acute Discharge Plan Disposition Patient Disposition: AGAINST MEDICAL ADVICE Condition: Poor Discharge Details Chief Complaint: Chest Pain Clinical Impression: Chest pain, Atrial fibrillation with RVR, Alcohol abuse Reason For Visit: ATRIAL FIBRILLATION/CHEST PAIN/ALCOHOLISM Admit Date/Time: 11/22/18 21:50 Admit Provider: Cole Hurst Attending Provider: Cole Hurst Primary Care Provider: Amarilys Barrera ED Provider: Chente Toro [facility] Hospital Course Hospital Course: Ms Bee is a 58 year old female with PMHx of alcohol abuse and subarachnoid hemorrhage 1 year prior who was admitted to [facility] ICU on 11/22/18 with new diagnosis of Afib with rapid ventricular rate, as well as alcohol withdrawal. She was treated with IV and then PO cardizem and ativan per CIWA scale. On her first day of hospitalization, she had auditory hallucinations, but she had not had any since. She was seen by cardiology in consult and recommended to be started on cardizem CD 240 mg PO daily. Her EF is 65-70%. She has at least mild pulmonary hypertension on echo. She is a poor candidate for anticoagulation due to her medical noncompliance. Today, 11/24/18, the patient left AMA despite being advised to stay. A script for cardizem 240 mg PO daily is being sent to her pharmacy. Home Meds and New Rx's Prescriptions: New diltiazem HCl [Cardizem CD] 240 mg capsule,extended release 24hr 240 mg PO DAILY Qty: 30 RF: 0 No Action aspirin, buffered 325 MG tablet 650 mg PO Q20MIN PRNRF: 0 citalopram 20 MG tablet 20 mg PO DAILY Qty: 90 RF: 3 Discharge Orders Discharge Orders: Discharge Order (Routine); Ordered 11/24/18 Ordered By: Amy Chávez Discharge Data Discharge Date/Time-TO BE ENTERED AT DEPARTURE: 11/24/18 15:45 Discharge Comment: Pt left AMA, to home with neighbor DS: Summary Status at Discharge Functional status at discharge: independent ambulation Overall status at discharge: patient is back to baseline Mental Status: mental status grossly normal Speech and Movement: other (tremulous) Mood: anxious mood Affect: anxious affect Exam Narrative Exam Narrative: General: Middle-aged female, sitting at the side of the bed, A&OX3, tremulous HEENT: EOMI, MMM Heart: irregularly irregular rhythm, no m/r/g Lungs: CTAB GI: abdomen is soft, nondistended Extremities: no e/c/c BLE's Psych Mental Status: mental status grossly normal Speech and Movement: other (tremulous) Mood: anxious mood Affect: anxious affect DS: Data Vitals/I&O Vitals and I&O: Vital Signs Temperature 36.9 C 11/24/18 12:10 Temperature Source Temporal Artery Scan 11/24/18 12:10 Pulse 100 H 11/24/18 15:01 Pulse 102 H 11/24/18 15:01 Respiratory Rate 18 11/24/18 15:20 Respiratory Effort 11/24/18 15:20 Respiratory Depth Normal 11/24/18 15:20 Respiratory Pattern Normal 11/24/18 15:20 Blood Pressure 142/92 H 11/24/18 15:01 Blood Pressure Mean 104 11/24/18 15:01 Blood Pressure Position Supine 11/24/18 12:10 Pulse Oximetry 96 11/24/18 15:01 Oxygen Delivery Method Room Air 11/24/18 15:20 Oxygen Flow Rate 0 11/24/18 15:20 Pain Level 0 11/24/18 15:20 Intake & Output 11/23/18 11/24/18 11/24/18 23:59 11:59 23:59 Intake Total 667.083 / 3800.066 1442.5 / 1612.5 170 / 1612.5 Output Total 950 / 3725 900 / 1390 490 / 1390 Balance -282.917 / 75.066 542.5 / 222.5 -320 / 222.5 Weight 71.5 kg Intake: IV 67.083 / 3100.066 962.5 / 1012.5 50 / 1012.5 Oral 600 / 700 480 / 600 120 / 600 Output: Urine 850 / 3550 600 / 1090 490 / 1090 Stool 100 / 175 300 / 300 Other: Urine Color [place] Urine Appearance Cloudy Cloudy Urine Odor Strong None Comment amount approximated Stool Size Small Moderate Stool Characteristics Liquid Soft Brown Voiding Methods Bedside Commode Bedside Commode Data Completed and Pending Completed studies during hospitalization [Text1]: Echo 11/23/18: 1. Left ventricle: The cavity size was normal. Systolic function was hyperdynamic. The estimated ejection fraction was 65-70%. The study is not technically sufficient to allow evaluation of LV diastolic function. 2. Left atrium: The atrium was mildly dilated. 3. Right ventricle: The cavity size was normal. Wall thickness was normal. Systolic function was normal. 4. Atrial septum: No defect or patent foramen ovale was identified. 5. Pulmonary arteries: Pulmonary systolic pressure was >= 20mm Hg. 6. Inferior vena cava: Poorly visualized. Us abdomen 11/24/18: Conclusion no evidence of cholelithiasis. Gallbladder wall thickening versus pericholecystic edema. This is a nonspecific finding and could represent gallbladder wall inflammation may also be associated with other etiologies including hypoalbuminemia, CHF, etc. Have hepatic steatosis noted CTA chest 11/22/18: No evidence of PE, additional findings as noted above. Labs on day of discharge: Labs from last 24 hours 11/24/18 11/24/18 11/24/18 06:25 06:25 06:25 Sodium 138 Potassium 4.2 D Chloride 105 Carbon Dioxide 23.4 Anion Gap 9.6 BUN 4 L Creatinine 0.56 Estimated GFR/1.73 m2 >= 60.00 Glucose 87 Calcium 8.1 L Magnesium 1.7 L Total Bilirubin 1.3 H Conjugated Bilirubin 0.56 H AST 194 H ALT 116 H Alkaline Phosphatase 217 H Total Protein 6.8 Albumin 2.5 L Triglycerides 43 Total Cholesterol 120 LDL Cholesterol, Calc 56 HDL Cholesterol 56 Vitamin B12 933 Folate 17.8 Hepatitis A IgM Ab Pending Hep Bs Antigen Pending Pending Hep Bs Antibody Pending Hep Bs Antibody, Quant Pending Hep B Core Total Ab Pending Pending Hepatitis C Antibody P[facility] History bunionectomy (Inactive) lamontangen a few years ago 2005ish Family History Mother Diabetes Essential hypertension Personal history of malignant neoplasm lung, breast CA Father No problems noted. Sister Essential hypertension Sister No problems noted. Brother No problems noted. Maternal Aunt Personal history of malignant neoplasm breast Social History Smoking/Tobacco Use Status: Current every day Tobacco Type: cigarettes Alcohol Intake: current Alcohol type: beer Drug use: Never Substance use type: does not use Details: 4 24 oz beers today Household members: significant other Do you feel safe at home: Yes Do you feel safe in your relationship?: Yes
[2018-11-27 11:52] LABS: HBs Antibody, Qual Positive; HBs Antibody, Quant 83.3 mIU/mL; Hepatitis B Core Antibody Negative (NEGAT); Hepatitis B surface Ag Negative (NEGAT); Hepatitis C Ab w Rflx HCV PCR Negative (NEGAT)
== END 2018-11-24 15:45 | disposition left against medical advice (07) | DRG 309 ==
LOC: ER 22:35 → ICU 23:50
PROVIDERS: Emergency Medicine; Admitting Provider Family Medicine; Emergency Provider Emergency Medicine; PCP Nurse Practitioner; Visit Provider Internal Medicine
DX: I48.91 Unspecified atrial fibrillation (principal); F10.232 Alcohol dependence with withdrawal with perceptual disturbance; Z53.21 Procedure and treatment not carried out due to patient leaving prior to being seen by health care provider; R07.9 Chest pain, unspecified; R76.8 Other specified abnormal immunological findings in serum; F17.210 Nicotine dependence, cigarettes, uncomplicated; R91.8 Other nonspecific abnormal finding of lung field; R74.8 Abnormal levels of other serum enzymes; Z91.81 History of falling; Z86.79 Personal history of other diseases of the circulatory system; Y90.8 Blood alcohol level of 240 mg/100 ml or more
CPT/HCPCS: 36415; 71275; 80048; 80053; 80061; 80076; 83690; 86704; 86706; 86709; 86803; 87340; 93005; 93306; 96361; 96365; 96366; 96375; 99223; 99232; 99233; 99238; 99291; 76700; 80320; 82607; 82746; 83735; 83880; 84484; 85025; 85610; 85730; 93010; J3490

== ENCOUNTER 2018-12-20 16:48 | Emergency (ER) | payer OTHER, SELFPAY ==
[2018-12-20] VITALS (20 sets, daily range): BP systolic 107–129; BP diastolic 68–93; PULSE 91–139; RESP 13–27; TEMP 36.9; O2SAT 92–100
--- NOTE | 2018-12-20 16:57 | W.ED.GENAD ---
Discharge Plan Disposition Patient Disposition: HOME Condition: Fair Discharge Details Chief Complaint: AMS/LOC Clinical Impression: Alcohol abuse, Transaminitis, Weakness Primary Care Provider: Amarilys Barrera ED Provider: Radha Acuña Home Meds and New Rx's Prescriptions: Continued aspirin, buffered 325 MG tablet 650 mg PO PRNRF: 0 citalopram 20 MG tablet 20 mg PO DAILY Qty: 90 RF: 3 diltiazem HCl [Cardizem CD] 240 mg capsule,extended release 24hr 240 mg PO DAILY Qty: 30 RF: 0 Discharge Instructions Instructions: Abuse of Alcohol (ED), Weakness (ED) Additional Instructions: Encourage water intake. Please try to cut back on alcohol. Please be in touch with [facility] human services and resources discussed by home care associate to help with long-term planning goals. Please follow-up with primary care for evaluation within the next week for reevaluation. If you develop any new or worsening symptoms please seek care urgently once again. Your labs today are concerning for your elevated liver enzymes but this is not unusual for you and is likely associate with your alcohol. Referrals: Amarilys Barrera, AMADO [Primary Care Provider] - Discharge Data Discharge Date/Time-TO BE ENTERED AT DEPARTURE: 12/20/18 19:40 Medical Decision Making Patient is a 58-year-old female with history of alcohol abuse, anxiety, depression, atrial fibrillation, presenting today with chief complaint of feeling unwell primarily upon awakening. She reports that for the past few weeks, she has been feeling lightheaded when she wakes in the morning and states that this typically subsides after eating or by noon if she does not eat. She denies any chest pain. No shortness of breath. No recent travel. She does note easy bruising. Patient drinks approximately 10 beers daily throughout the course the day. She reports she is had 3 thus far today. No aggressive change in her symptoms but reports I am tired of it. No known thyroid disorder. No history of diabetes. Patient was recently admitted for atrial fibrillation and left AGAINST MEDICAL ADVICE. At that time, patient was admitted for new onset A. fib. An echo was obtained showing an EF of 65 to 70% and mild pulmonary hypertension. Anticoagulation was not started secondary to noncompliance and risks associated with alcoholism and falls. She was started on Cardizem. She reports she is been taking her medication as prescribed and has not started any other new medications.. EKG was reviewed by Dr. Farfan the patient's first arrival. Patient is in a sinus tach with a rate of 104. No acute ischemic changes noted. On exam, patient appears chronically unwell likely associated with her long-term alcoholism and chronic smoking. She has reddened cheeks and nose, eyes appear slightly icteric. No abdominal pain. Lungs are clear. No lower extremity edema, calves are soft. Neuro exam is intact. She is denying any focal deficits and none were noted on exam to suggest a possible stroke. As the symptoms seem to be daily and timed intervals, I am primarily concerned with the lifestyle issues. Patient does smell of alcohol currently and is nonalcoholic. I am concerned for possible electrolyte abnormalities. Plan for labs. Discussed this the patient was in agreement. Labs reviewed. No significant abnormalities, patient's AST is 264, ALT 121, alk phos 245. These elevations are not new for the patient I have been high for the past year. Troponin is normal. Ammonia is less than 10, thyroid is within normal limits. I reevaluated the patient. Her heart rate is in the 90s to 110. This appears to be normal for the patient. She is currently asymptomatic and feels quite well. Despite her alcohol of 258, she appears clinically sober. Review of the labs show that this is normal for the patient likely where she stays on a daily basis. She is appropriate and seems to have good mental capacity. She is requesting discharge at this time. She is feeling improved. I reviewed the labs with the patient my concerns for her her chronic alcoholism. I am concerned with her weakness but feels this is likely driven by her large amount of alcohol consumption on a daily basis. Patient and I discussed long-term health goals of hers. At this point, she is not interested in seeking care for rehab. She reports she gone previously but always leaves prior to discharge. 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 States that this leads her to have increased alcohol intake. I did have the home care associate meet with the patient and discussed community options for the patient. She does seem interested in this. We did discuss a counselor. I advised that she may go at any point for rehabilitation which she declines at this time. She seems genuinely interested in lifestyle modifications and getting more involved out of her home. RCT bringing patient home. She will f/u closely with PCP and discuss ETOH, weakness and elevated liver enzymes furhter. All of her questions and concerns were addressed, she is in agreement with this plan. HPI General Mode of arrival: EMS. Date/Time Provider Initiated Documentation: 12/20/18 16:51. Limitations to Documentation: no limitations. Information obtained by: patient, EMS and RN notes reviewed. HPI Narrative: Patient is a 58 year old female presenting today with c/c of feeling unwell for the past few weeks. Primary concern is that she has felt weak and offbalance upon awakening daily. States that weakness is localized between the knees and ankles. Also reports intermittent lightheadedness. No fevers/chills. Denies head trauma. Denies BRAND. Patient drinks ETOH daily, reports a few beers today. Smokes 1ppd Related Data Home Medications Medication Instructions Recorded Confirmed aspirin, buffered 650 mg PO PRN tab 09/25/15 11/22/18 citalopram 20 mg PO DAILY #90 tab-cap 07/07/17 11/22/18 diltiazem HCl [Cardizem CD] 240 mg PO DAILY #30 cap 11/24/18 Previous Rx's Medication Instructions Recorded citalopram 20 mg PO DAILY #90 tab-cap 07/07/17 diltiazem HCl [Cardizem CD] 240 mg PO DAILY #30 cap 11/24/18 Allergies Allergy/AdvReac Type Severity Reaction Status Date / Time No Known Allergies Allergy Unverified 04/15/18 01:30 General Stated Complaint: AMS/LOC DANNY: 3 Review of Systems Constitutional Constitutional: Reports as per HPI, Denies chills, Reports fatigue, Denies fever(s), Denies frequent falls, Denies headache(s), Denies snoring and Reports weakness Eyes Eyes: Reports as per HPI, Denies blurry vision, Denies change in vision and Reports photophobia ENT Ears, Nose, Mouth, and Throat: Denies vertigo, Reports dizziness (lightheaded and weak), Denies headache(s), Denies neck pain and Reports disequilibrium (only in the morning) Cardiovascular Cardiovascular: Reports as per HPI, Denies chest pain, Reports lightheadedness, Denies radiating jaw, neck or arm pain, Denies dyspnea and Denies dyspnea on exertion Respiratory Respiratory: Reports as per HPI, Denies chest congestion, Denies cough, Denies dyspnea, Denies dyspnea on exertion, Denies snoring, Denies stridor and Denies wheezing Gastrointestinal Gastrointestinal: Reports as per HPI, Denies abdominal pain, Denies change in bowel habits, Denies nausea and Denies vomiting Musculoskeletal Musculoskeletal: Reports as per HPI, Denies back pain, Denies myalgias, Denies muscle cramps, Denies neck pain, Denies numbness and Denies tingling Integumentary/Breasts Skin/Breast: Reports as per HPI and Denies rash Neurologic Neurologic: Reports as per HPI, Denies abnormal movements, Denies abnormal speech, Denies behavioral changes, Denies confusion, Denies vertigo, Reports dizziness (lightheaded and weak), Denies frequent falls, Denies headache(s), Denies focal weakness, Denies numbness, Denies radicular pain, Denies sensory deficit, Denies tingling, Denies paresthesias, Reports disequilibrium (only in the morning) and Reports weakness Psychiatric Psychiatric: Denies behavioral changes and Denies confusion Endocrine Endocrine: Reports fatigue Allergic/Immunologic Allergic/Immunologic: Denies wheezing [facility] Medical History Alcohol abuse (Chronic) SAH (subarachnoid hemorrhage) (Inactive) Surgical History bunionectomy (Inactive) lamontangen a few years ago [address] [place] [address] Social History Smoking/Tobacco Use Status: Current every day Tobacco Type: cigarettes Alcohol Intake: current Alcohol type: beer Drug use: Never Substance use type: does not use Details: pt reports beer today Household members: significant other Do you feel safe at home: Yes Do you feel safe in your relationship?: Yes Exam Const General: cooperative, healthy appearing, uncomfortable, no acute distress, well developed, well groomed and intoxicated appearing (smells of ETOH) Nutritional Appearance: average body habitus and well nourished Orientation: alert, awake and oriented x3 HENMT Head: normal to inspection, no palpable skull fracture, normocephalic and atraumatic Ears: hearing grossly normal bilaterally, external ears normal and TM's normal bilaterally General nose exam: external nose normal Mouth: oral mucosae normal and moist mucous membranes Throat: posterior oropharynx normal Eyes General: appearance normal, both eyes and all related structures Alignment and Position: alignment normal Periorbital: periorbital findings normal Eyelids: eyelids normal Sclera: sclerae normal Cornea: corneas normal Pupils: PERRL EOM: EOM intact bilaterally Neck Neck: normal visual inspection, full ROM, no lymphadenopathy and no meningeal signs Resp Effort & Inspection: normal respiratory effort, able to speak in complete sentences and no respiratory distress Auscultation: clear to auscultation bilaterally, no rales, no rhonchi and no wheezes Cardio Rate: regular rate Rhythm: regular rhythm Heart Sounds: S1 normal and S2 normal GI Inspection: normal to inspection and non-distended Palpation: soft, no hepatosplenomegaly, not firm, no guarding, not rigid and nontender Percussion: normal to percussion Auscultation: normal bowel sounds Back/Spine/Pelvis Cervical Spine: normal cervical lordosis and cervical ROM normal Skin General skin exam: no rashes or lesions noted Neuro General: alert, awake and oriented x3 Cranial Nerves: CN's II-XI intact bilaterally Cognition: normal cognition Speech: speech normal Gait: normal gait Motor: muscle tone normal throughout, strength 5/5 throughout, no pronator drift, no movement abnormalities noted and no fasciculations Sensory Exam: no sensory deficits noted Coordination: [id number] test normal and [id number] test normal Extrem General: normal to inspection, normal capillary refill, no pedal edema and no calf tenderness Psych Appearance: grossly normal and well kempt Mental Status: mental status grossly normal Speech and Movement: speech and movement normal Mood: congruent mood Affect: sad Attitude: cooperative Thought Process: normal Thought Content: normal Insight: limited Judgment: fair Course Vital Signs Vital signs: Vital Signs Temperature 36.9 C 12/20/18 16:51 Pulse 108 H 12/20/18 16:51 Respiratory Rate 24 12/20/18 16:51 Blood Pressure 129/93 H 12/20/18 16:51 Pulse Oximetry 100 12/20/18 16:51 Temperature 36.9 C 12/20/18 16:51 Temperature Source Temporal Artery Scan 12/20/18 16:51 Pulse 108 H 12/20/18 16:51 Respiratory Rate 24 12/20/18 16:51 Blood Pressure 129/93 H 12/20/18 16:51 Blood Pressure Position Sitting 12/20/18 16:51 Pulse Oximetry 100 12/20/18 16:51 Oxygen Delivery Method Room Air 12/20/18 16:51 Oxygen Flow Rate 0 12/20/18 16:51 Pain Level 0 12/20/18 16:51
[2018-12-20] MEDS: Normal Saline 1,000 ML 125 ML IV (17:00)
[2018-12-20 17:39] LABS: Abs Immature Grans 0.01 k/cumm (0.0-0.09); Absolute Basophil Count 0.03 k/cumm (0.0-0.2); Absolute Eosinophil Count 0.02 k/cumm (0.0-0.7); Absolute Lymphocyte Count 1.03 k/cumm (1.2-3.4); Absolute Monocyte Count 0.96 k/cumm (0.11-0.7); Absolute Neutrophil Count 3.33 k/cumm (1.2-6.7); Basophils % 0.6; Eosinophils % 0.4; HCT 38.6 % (36.0-46.0); HGB 13.5 g/dL (12.0-15.5); Immature Grans % 0.2; Lymphocytes % 19.1; Mean Corpuscular Volume 102.9 fL (80-95); Monocytes % 17.8; Neutrophils % 61.9; Platelet Count 169 x1000/uL (130-400); RBC 3.75 m/cumm (4.00-5.20); RBC Distribution Width 13.3 % (11.7-14.6); White Blood Cell Count 5.38 k/cumm (4.4-10.8)
[2018-12-20 18:02] LABS: Bilirubin Negative (Negative); Blood Negative (Negative); Clarity Clear (Clear); Glucose Negative (Negative); Ketones Negative (Negative); Leukocyte Esterase Trace (Negative); Nitrite Negative (Negative); Specific Gravity <= 1.005 (1.005-1.025); Urobilinogen 0.2 EU/dL (Up TO 0.2)
[2018-12-20 18:02] LABS: ALT 121 U/L (14-59); AST 264 U/L (15-37); Albumin 3.2 g/dL (3.4-5.0); Alkaline Phosphatase 245 U/L (46-116); Anion Gap 11.4 mmol/L (3-11); BUN 5 mg/dL (7-18); Bilirubin, Total 0.8 mg/dL (0.2-1.0); CO2 27.6 mmol/L (21.0-32.0); Calcium 9.1 mg/dL (8.5-10.1); Chloride 98 mmol/L (98-107); ETHANOL BLOOD 258.7 mg/dL (<3); Glucose 95 mg/dL (70-100); Magnesium 1.8 mg/dL (1.8-2.4); Potassium 3.8 mmol/L (3.5-5.1); Sodium 137 mmol/L (136-145)
[2018-12-20 18:06] LABS: Troponin I < 0.05 ng/mL (0.00-0.06)
[2018-12-20 18:06] LABS: Ammonia < 10 umol/L (11-32)
[2018-12-20 18:08] LABS: Bacteria Few HPF (Negative); C & S Indicated? No; Casts Negative LPF (Negative); Crystals Negative HPF (Negative); Epithelial Cells Negative HPF (Negative); Mucus Negative (Negative); Other Cells Negative (Negative); RBC Negative (0-2); WBC 0-2 HPF (0-5)
--- NOTE | 2018-12-20 21:16 | CMPROGNOTE_ITS ---
- If Service Date Differs Date of service: 12/20/18 Time of Service: 21:16 Care Management Progress Note S/O: CM is asked by the ED provider to meet with Shantel. Patient reports she lives in [place] with her partner of 19 years. She shares she struggles with depression and alcohol use, stating she drinks 6 to 10 beers per day every day of the week. She reports she has been inpatient at [facility] six times over the years and does well while she's there but returns to drinking alcohol shortly after discharging home. Patient is not currently on anti- depressants and is not enrolled in therapy. She declines another inpatient stay but is interested in seeing a counselor for outpatient mental health and substance abuse treatment. A: 58 year old female who presents at the ED for an altered mental status and weakness. P: Shantel is discharging home. [facility] is providing transportation. Referrals are sent to [facility], Shantel's PCP office, and [facility].
== END 2018-12-20 19:40 | disposition home or self-care (01) ==
PROVIDERS: Emergency Provider Physician Assistant; PCP Nurse Practitioner
DX: F10.20 Alcohol dependence, uncomplicated (principal); Y90.8 Blood alcohol level of 240 mg/100 ml or more; R74.0 Nonspecific elevation of levels of transaminase and lactic acid dehydrogenase [LDH]; F41.8 Other specified anxiety disorders; R53.1 Weakness; R00.0 Tachycardia, unspecified; I48.91 Unspecified atrial fibrillation; F17.210 Nicotine dependence, cigarettes, uncomplicated
CPT/HCPCS: 36415; 80053; 93005; 99284; 80320; 81003; 81015; 82140; 83735; 84443; 84484; 85025; 93010

== ENCOUNTER 2019-03-21 22:07 | Emergency (ER) | payer OTHER, SELFPAY ==
[2019-03-21 22:10] VITALS: BP 105/67; PULSE 94; RESP 12; TEMP 36.6; O2SAT 97
--- NOTE | 2019-03-21 22:20 | ED.GENADUL_ITS ---
Discharge Plan Disposition Patient Disposition: HOME Condition: Good Discharge Details Chief Complaint: Chest Pain Clinical Impression: Chest pain, Alcohol intoxication Primary Care Provider: Amarilys Barrera ED Provider: Chente Toro Burgess Meds and New Rx's Prescriptions: Continued multivitamin [Multiple Vitamins] Tablet 1 tab PO DAILY Qty: 30 RF: 0 aspirin 81 mg Tablet,Delayed Release (Dr/Ec) 81 mg PO DAILY Qty: 30 RF: 0 cyanocobalamin (vitamin B-12) [Vitamin B-12] 500 mcg Tablet 1,000 mcg PO DAILY Qty: 30 RF: 0 nicotine 21 mg/24 hr Patch 24 Hour 21 mg transdermal DAILY Qty: 30 RF: 0 folic acid 1 mg Tablet 1 mg PO DAILY Qty: 30 RF: 0 thiamine mononitrate (vit B1) [Vitamin B-1 (mononitrate)] 100 mg Tablet 100 mg PO DAILY Qty: 30 RF: 0 diltiazem HCl [Cardizem CD] 240 mg capsule,extended release 24hr 240 mg PO DAILY Qty: 30 RF: 0 magnesium oxide 400 mg (241.3 mg magnesium) tablet 400 mg PO DAILY Qty: 30 RF: 0 Discharge Instructions Instructions: Chest Pain (ED), Alcohol Intoxication (ED) Additional Instructions: Your work-up tonight does not suggest cardiac disease but you should definitely follow-up with primary care for further evaluation and possible outpatient stress testing preferably within the next 3 to 4 days. Please call in the morning for appointment. You may use Tylenol or Motrin for pain as it seems to be reproducible and may be chest wall pain. Return to ED if you have new or worsening chest pain, shortness of breath, fainting, other concerns or problems. Referrals: Amarilys Barrera, [facility] [employer]OMOTION MANAGER [Primary Care Provider] - Medical Decision Making Patient had been given 4 baby aspirin by EMS. No nitroglycerin administered. Chest pain is reproducible with focal tenderness left lower sternal border. EKG without any ST changes. IV in place. Will give Toradol for pain. Check laboratory studies and chest x-ray. I do not suspect PE or dissection given her history of intermittent episodes of this discomfort. Appears to be chest wall pain tonight. May be a component of anxiety. Doubt this is cardiac but will plan on 2 sets of troponin and calculating a HEART score. 23:15 - Initial set of labs are unremarkable. Hemoglobin hematocrit normal. Electrolytes normal. Liver function good. First troponin negative. Chest x- ray without any acute changes from previous. Alcohol level 165. Patient requesting something for anxiety, specifically Ativan. We will hold off on this. Will treat with Vistaril. We will plan second troponin and discharge if negative as her calculated HEART score is a 2. 01:45 - Patient's repeat EKG is unchanged. Troponin remains negative. Pain resolved with Toradol. Given her low HEART score, she may be discharged to follow-up with primary care. Return to ED for new or worsening pain, shortness of breath, syncope, other concerns. Medical Records Medical records reviewed: Yes I reviewed the patient's medical records. Lab Data Lab results reviewed: Yes I reviewed the patient's lab results. ECG Data Attestation: I personally reviewed and interpreted this ECG (s) as follows: Interpretation: #1 - Normal sinus rhythm at a rate of 96. Normal intervals and axis. Low voltage throughout. No acute ST changes. #2 - Normal sinus rhythm at a rate of 81. Normal axis and intervals. Continued low voltage. No acute ST change. No change from earlier. HPI General Mode of arrival: EMS . Date/Time Provider Initiated Documentation: 03/21/19 22:17 . Limitations to Documentation: no limitations . Information obtained by: patient, RN notes reviewed and old records reviewed . HPI Narrative: Patient presents to ED with complaint of anterior chest pain that started about 7:30 this evening. She reports having episodes of chest pain on and off now for months. She was admitted here back in December for A. fib with rapid ventricular response and atypical chest pain. She signed out AMA as her alcohol withdrawal got worse. There has been no follow-up that I can see in the records since event. She reports that the pain tonight seemed to be worse than usual. She started to get anxious and reports having problems with anxiety that has been getting worse as well. She denies any shortness of breath, nausea, diaphoresis. She does feel a little lightheaded. She denies fever. She has a smoker's cough which is unchanged. She denies any abdominal pain, vomiting, diarrhea. She has been drinking today. She does continue to smoke. She denies any type of trauma or falls. She denies leg pain or leg swelling. Related Data Home Medications Medication Instructions Recorded Confirmed aspirin 81 mg PO DAILY #30 tab 01/17/19 03/21/19 cyanocobalamin (vitamin B-12) 1,000 mcg PO DAILY #30 tab 01/17/19 03/21/19 [Vitamin B-12] diltiazem HCl [Cardizem CD] 240 mg PO DAILY #30 cap 01/17/19 03/21/19 folic acid 1 mg PO DAILY #30 tab 01/17/19 03/21/19 magnesium oxide 400 mg PO DAILY #30 tab 01/17/19 03/21/19 multivitamin [Multiple Vitamins] 1 tab PO DAILY #30 tab 01/17/19 03/21/19 nicotine 21 mg TRANSDERMAL DAILY #30 ea 01/17/19 03/21/19 thiamine mononitrate (vit B1) 100 mg PO DAILY #30 tab 01/17/19 03/21/19 [Vitamin B-1 (mononitrate)] Previous Rx's Medication Instructions Recorded aspirin 81 mg PO DAILY #30 tab 01/17/19 cyanocobalamin (vitamin B-12) 1,000 mcg PO DAILY #30 tab 01/17/19 [Vitamin B-12] diltiazem HCl [Cardizem CD] 240 mg PO DAILY #30 cap 01/17/19 folic acid 1 mg PO DAILY #30 tab 01/17/19 magnesium oxide 400 mg PO DAILY #30 tab 01/17/19 multivitamin [Multiple Vitamins] 1 tab PO DAILY #30 tab 01/17/19 nicotine 21 mg TRANSDERMAL DAILY #30 ea 01/17/19 thiamine mononitrate (vit B1) 100 mg PO DAILY #30 tab 01/17/19 [Vitamin B-1 (mononitrate)] Allergies Allergy/AdvReac Type Severity Reaction Status Date / Time No Known Allergies Allergy Unverified 03/21/19 22:15 General Stated Complaint: Chest Pain DANNY: 2 Review of Systems Narrative: 12/11 Review of Systems completed and is negative except as stated above in HPI (Systems reviewed: Const, Eyes, ENT, Resp, CV, GI, , MSK, Skin, Neuro) [facility] Medical History Alcohol abuse (Chronic) Anxiety and depression (Inactive 08/06/14) Atrial fibrillation with rapid ventricular response (Inactive) Opiate addiction (Inactive 08/06/14) in recovery. weaned off suboxone through [facility] 05/05/14 Pulmonary nodules (Inactive) SAH (subarachnoid hemorrhage) (Inactive) Tobacco abuse (Chronic 07/07/17) Surgical History bunionectomy (Inactive) lamontangen a few years ago 2005ish History of bilateral tubal ligation (Acute) Social History Smoking/Tobacco Use Status: Current every day Tobacco Type: cigarettes Alcohol Intake: current Alcohol Intake frequency: 3 or more drinks per day Alcohol type: beer Drug use: Never Substance use type: does not use Details: pt reports beer today Household members: significant other Do you feel safe at home: Yes Do you feel safe in your relationship?: Yes Exam Narrative Exam Narrative: Vitals: Afebrile with normal vital signs and room air pulse oximetry. Const: WDWN female in NAD. Smells of alcoholic beverages. HEENT: NC/AT. Normal facial exam. Eyes: Normal conjunctiva and sclera. Neck: Supple. Trachea midline. Lungs: Normal respiratory effort. Lungs are clear. Focal chest wall tenderness LLSB. Cor: RRR without murmur/gallop. Good distal pulses. GI: Soft. NT/ND. No guarding or rebound. Neuro: A+O x 3. Normal speech and mentation. No gross motor or sensory deficit. Ext: No C/C/E. No calf tenderness. Skin: Warm and dry without rash. Course Vital Signs Vital signs: Vital Signs Pulse 94 H 03/21/19 22:10 Respiratory Rate 12 03/21/19 22:10 Blood Pressure 105/67 03/21/19 22:10 Pulse Oximetry 97 03/21/19 22:10 Pulse 94 H 03/21/19 22:10 Respiratory Rate 12 03/21/19 22:10 Respiratory Effort 03/21/19 22:14 Blood Pressure 105/67 03/21/19 22:10 Pulse Oximetry 97 03/21/19 22:10 Oxygen Delivery Method Room Air 03/21/19 22:10 Oxygen Flow Rate 0 03/21/19 22:10 Pain Level 5 03/21/19 22:10
[2019-03-21 22:42] LABS: Abs Immature Grans 0.01 k/cumm (0.0-0.09); Absolute Basophil Count 0.03 k/cumm (0.0-0.2); Absolute Eosinophil Count 0.05 k/cumm (0.0-0.7); Absolute Lymphocyte Count 1.33 k/cumm (1.2-3.4); Absolute Monocyte Count 0.76 k/cumm (0.11-0.7); Absolute Neutrophil Count 2.25 k/cumm (1.2-6.7); Basophils % 0.7; Eosinophils % 1.1; HCT 37.8 % (36.0-46.0); HGB 13.3 g/dL (12.0-15.5); Immature Grans % 0.2 %; Mean Corp. HGB Concentration 35.2 g/dL (32.0-36.0); Mean Corpuscular Hemoglobin 36.2 pg (27.0-33.0); Mean Platelet Volume 9.3 fL (8.0-11.0); Monocytes % 17.2; Neutrophils % 50.8; Platelet Count 203 x1000/uL (130-400); RBC 3.67 m/cumm (4.00-5.20); RBC Distribution Width 12.2 % (11.7-14.6); White Blood Cell Count 4.43 k/cumm (4.4-10.8)
[2019-03-21] MEDS: Lactated Ringers 1,000 ML 1000 ML IV (22:43)
[2019-03-21] MEDS: Ketorolac 15 MG/ML VIAL IVP (22:47)
--- NOTE | 2019-03-21 22:52 | DI.RAD_ITS ---
EXAM: XR CHEST 2V PA LATERAL INDICATION: chest pain. COMPARISON: No exams were available for comparison TECHNIQUE: 2D digital imaging was performed. FINDINGS: Heart size is within normal limits. Pulmonary vasculature is within normal limits. The lungs are cl ear. No pleural effusion or pneumothorax is identified. There are degenerative changes seen in the spine. IMPRESSION: No acute pulmonary process.
[2019-03-21 23:00] LABS: ALT 33 U/L (14-59); AST 55 U/L (15-37); Albumin 3.2 g/dL (3.4-5.0); Alkaline Phosphatase 88 U/L (46-116); Anion Gap 10.2 mmol/L (3-11); BUN 10 mg/dL (7-18); Bilirubin, Total 0.2 mg/dL (0.2-1.0); CO2 24.8 mmol/L (21.0-32.0); CREATININE 0.59 mg/dL (0.55-1.02); Calcium 8.9 mg/dL (8.5-10.1); Chloride 104 mmol/L (98-107); Glucose 98 mg/dL (74-106); Magnesium 1.8 mg/dL (1.8-2.4); Potassium 3.9 mmol/L (3.5-5.1); Sodium 139 mmol/L (136-145); Total Protein 7.2 g/dL (6.4-8.2)
[2019-03-21 23:01] LABS: Troponin I < 0.05 ng/Ml (<0.06)
--- NOTE | 2019-03-21 23:09 | DI.VRAD_ITS ---
PROCEDURE INFORMATION: Exam: XR Chest, 2 Views Exam date and time: 03/21/2019 22:52 Age: 59 years old Clinical indication: Chest pain TECHNIQUE: Imaging protocol: XR of the chest Views: 2 views. COMPARISON: CT CHEST PE CTA 01/15/2019 22:57 FINDINGS: Lungs: No airspace consolidation. Pleural space: No pleural effusion. No pneumothorax. Heart/Mediastinum: Similar mild cardiomegaly with mild venous cephalization. Bones/joints: No acute fracture. IMPRESSION: Similar mild cardiomegaly with mild venous cephalization. Dictated and Authenticated by: Patricia Vanessa MD. Ordering:JOEY Eldridge MD
[2019-03-21] MEDS: hydrOXYzine PAMOATE 25 MG CAP PO (23:27)
[2019-03-22 01:37] LABS: Troponin I < 0.05 ng/Ml (<0.06)
[2019-03-22 01:57] VITALS: BP 105/67; PULSE 94; RESP 12; O2SAT 97
== END 2019-03-22 01:55 | disposition home or self-care (01) ==
PROVIDERS: Emergency Provider Emergency Medicine; PCP Nurse Practitioner
DX: R07.89 Other chest pain (principal); F10.129 Alcohol abuse with intoxication, unspecified
CPT/HCPCS: 80053; 93005; 96361; 96374; 99284; 71046; 80320; 83735; 84484; 85025; 93010; J1885

== ENCOUNTER 2019-04-17 20:30 | Inpatient (IN) | payer OTHER, SELFPAY ==
[2019-04-17] VITALS (25 sets, daily range): BP systolic 90–111; BP diastolic 45–89; PULSE 72–117; RESP 14–29; TEMP 36.5; O2SAT 89–96
[2019-04-17] MEDS: Normal Saline 1,000 ML 1000 ML IV (20:50)
[2019-04-17 20:55] LABS: Abs Immature Grans 0.01 k/cumm (0.0-0.09); Absolute Basophil Count 0.03 k/cumm (0.0-0.2); Absolute Eosinophil Count 0.04 k/cumm (0.0-0.7); Absolute Lymphocyte Count 1.74 k/cumm (1.2-3.4); Absolute Monocyte Count 0.88 k/cumm (0.11-0.7); Absolute Neutrophil Count 3.52 k/cumm (1.2-6.7); Basophils % 0.5; Eosinophils % 0.6; HCT 42.2 % (36.0-46.0); HGB 14.9 g/dL (12.0-15.5); Immature Grans % 0.2 %; Mean Corp. HGB Concentration 35.3 g/dL (32.0-36.0); Mean Corpuscular Hemoglobin 35.6 pg (27.0-33.0); Mean Platelet Volume 9.6 fL (8.0-11.0); Monocytes % 14.1; Neutrophils % 56.6; Platelet Count 196 x1000/uL (130-400); RBC 4.18 m/cumm (4.00-5.20); RBC Distribution Width 12.2 % (11.7-14.6); White Blood Cell Count 6.22 k/cumm (4.4-10.8)
--- NOTE | 2019-04-17 21:00 | DI.RAD_ITS ---
EXAM: XR CHEST 2V PA LATERAL CLINICAL HISTORY: chest pain. TECHNIQUE: 2D digital imaging was performed. COMPARISON: XR CHEST 2V PA LATERAL from 03/21/2019 FINDINGS: LUNGS: Clear. No pleural abnormality seen. HEART: Normal. MEDIASTINUM: Normal. OTHER FINDINGS:Normal. BONE:Normal. IMPRESSION: No acute pulmonary findings.
--- NOTE | 2019-04-17 21:02 | ED.GENADUL_ITS ---
Discharge Plan Disposition Patient Disposition: [facility] INPATIENT Condition: Serious Discharge Details Chief Complaint: Chest Pain Clinical Impression: Atrial fibrillation with rapid ventricular response, Alcohol abuse, Chest pain Primary Care Provider: Amarilys Barrera ED Provider: Bulmaro Reeder Home Meds and New Rx's Prescriptions: No Action multivitamin [Multiple Vitamins] Tablet 1 tab PO DAILY Qty: 30 RF: 0 aspirin 81 mg Tablet,Delayed Release (Dr/Ec) 81 mg PO DAILY Qty: 30 RF: 0 cyanocobalamin (vitamin B-12) [Vitamin B-12] 500 mcg Tablet 1,000 mcg PO DAILY Qty: 30 RF: 0 nicotine 21 mg/24 hr Patch 24 Hour 21 mg transdermal DAILY Qty: 30 RF: 0 folic acid 1 mg Tablet 1 mg PO DAILY Qty: 30 RF: 0 thiamine mononitrate (vit B1) [Vitamin B-1 (mononitrate)] 100 mg Tablet 100 mg PO DAILY Qty: 30 RF: 0 diltiazem HCl [Cardizem CD] 240 mg capsule,extended release 24hr 240 mg PO DAILY Qty: 30 RF: 0 magnesium oxide 400 mg (241.3 mg magnesium) tablet 400 mg PO DAILY Qty: 30 RF: 0 Medical Decision Making 21:00 --59-year-old female with history of atrial fibrillation, medication nonc ompliance, alcohol abuse, here with intermittent chest pain over the past 1 month, worse tonight. Found to be in A. fib with RVR by EMS who administered Cardizem 15 mg IV. Heart rate now improved as is chest pain. Patient denies chest pain at time of evaluation. Patient is saturating well in no respiratory distress. Screening ECG was reviewed and interpreted by me: Atrial fibrillation 117 bpm, low voltage in limb leads with poor R wave progression. No STEMI. Patient does have odor of alcohol and admits to consuming 3 large beers earlier today. She is feeling anxious now. No tremor. I will give Ativan 1 mg p.o. Will give thiamine 100 mg IV and IVF bolus. --I reviewed past medical record. Patient had negative CT of the chest with contrast 11/23/2018 and again on 01/16/2019. Given this, no tachypnea or hypoxia, or leg swelling or calf pain, I feel patient is low risk for pulmonary embolism. Repeat CT imaging not indicated at this time. --Chest x-ray was reviewed and interpreted by me: No acute cardiopulmonary disease. Labs were reviewed and troponin negative. Alcohol level is elevated at 297. TSH is elevated. Patient was reassessed and heart rate continues to however in the 100-110s. Will give home dose cardizem 240mg cd. 23:38 --patient reassessed: technician automated equipment shows A. fib with RVR heart rate in the 120s. Blood pressure stable with systolic in the 90s. Plan will be to admit patient to the ICU for management of afib with persistent rapid ventricular response, serial enzymes and likely will need close monitoring for alcohol withdrawal. 23:44 --delta troponin at 3 hours from initial draw negative and unchanged from prior. I spoke with Dr. Birch who will admit the patient to the ICU. HPI General Mode of arrival: EMS . Date/Time Provider Initiated Documentation: 04/17/19 20:34 . Limitations to Documentation: no limitations . Information obtained by: patient and EMS . HPI Narrative: 59-year-old female with history of alcohol abuse, anxiety, depression, atrial fibrillation, medication noncompliance in the past, here with EMS with chief complaint of chest pain. Patient notes she is been having intermittent chest pain for the past 1 month. Patient states tonight pain was worse. Pain localized to across the top of her chest. Pain does not radiate. Patient describes pain as being heavy tonight. She has no associated shortness of breath. No associated leg swelling or calf tenderness. No associated nausea or vomiting. No abdominal pain. EMS note that chest pain was 7/10. Patient was found to be in atrial fibrillation with rapid ventricular response with a heart rate of 150 in the field. She was given Cardizem 15 mg IV. Heart rate improved to 110s and chest pain improved. Patient's blood pressure did decrease to systolic in the 90s and she was given IV fluid bolus 500 mL. Patient denies drug use. She does smoke and and drinks 3-4 large beers daily. Related Data Home Medications Medication Instructions Recorded Confirmed aspirin 81 mg PO DAILY #30 tab 01/17/19 03/21/19 cyanocobalamin (vitamin B-12) 1,000 mcg PO DAILY #30 tab 01/17/19 04/17/19 [Vitamin B-12] diltiazem HCl [Cardizem CD] 240 mg PO DAILY #30 cap 11/20/19 02/18/20 folic acid 1 mg PO DAILY #30 tab 01/17/19 04/17/19 magnesium oxide 400 mg PO DAILY #30 tab 01/17/19 04/17/19 multivitamin [Multiple Vitamins] 1 tab PO DAILY #30 tab 01/17/19 04/17/19 nicotine 21 mg TRANSDERMAL DAILY #30 ea 01/17/19 03/21/19 thiamine mononitrate (vit B1) 100 mg PO DAILY #30 tab 01/17/19 04/17/19 [Vitamin B-1 (mononitrate)] Previous Rx's Medication Instructions Recorded aspirin 81 mg PO DAILY #30 tab 01/17/19 cyanocobalamin (vitamin B-12) 1,000 mcg PO DAILY #30 tab 01/17/19 [Vitamin B-12] diltiazem HCl [Cardizem CD] 240 mg PO DAILY #30 cap 01/17/19 folic acid 1 mg PO DAILY #30 tab 01/17/19 magnesium oxide 400 mg PO DAILY #30 tab 01/17/19 multivitamin [Multiple Vitamins] 1 tab PO DAILY #30 tab 01/17/19 nicotine 21 mg TRANSDERMAL DAILY #30 ea 01/17/19 thiamine mononitrate (vit B1) 100 mg PO DAILY #30 tab 01/17/19 [Vitamin B-1 (mononitrate)] Allergies Allergy/AdvReac Type Severity Reaction Status Date / Time No Known Allergies Allergy Unverified 04/17/19 20:38 General Stated Complaint: Chest Pain DANNY: 2 Review of Systems Constitutional Constitutional: Denies fever(s) Cardiovascular Cardiovascular: Reports chest pain, Denies leg edema and Denies dyspnea Respiratory Respiratory: Denies dyspnea Gastrointestinal Gastrointestinal: Denies abdominal pain [facility] Medical History Alcohol abuse (Chronic) Anxiety and depression (Inactive 08/06/14) Atrial fibrillation with rapid ventricular response (Inactive) Opiate addiction (Inactive 08/06/14) in recovery. weaned off suboxone through [facility] 05/05/14 Pulmonary nodules (Inactive) SAH (subarachnoid hemorrhage) (Inactive) Tobacco abuse (Chronic 07/07/17) Surgical History bunionectomy (Inactive) lam[place]en a few years ago 2005ish History of bilateral tubal ligation (Acute) Family History Mother Diabetes Essential hypertension Personal history of malignant neoplasm lung, breast CA Father No problems noted. Sister Essential hypertension Sister No problems noted. Brother No problems noted. Maternal Aunt Personal history of malignant neoplasm breast Social History Smoking/Tobacco Use Status: Current every day Tobacco Type: cigarettes Alcohol Intake: current Alcohol Intake frequency: 3 or more drinks per day Alcohol type: beer Drug use: Never Substance use type: does not use Details: pt reports beer today Household members: significant other Do you feel safe at home: Yes Do you feel safe in your relationship?: Yes Exam Const General: cooperative and no acute distress HENMT Head: normocephalic and atraumatic Mouth: moist mucous membranes Eyes Conjunctivae: normal conjunctivae Sclera: normal sclerae Neck Neck: trachea midline and supple Resp Auscultation: clear to auscultation bilaterally, no rales, no rhonchi and no wheezes Cardio Jugular venous pressure: no JVD Rate: regular rate and not tachycardic Rhythm: regular rhythm GI Palpation: soft, not firm, no guarding, no masses, not rigid and nontender Skin General skin exam: no rashes or lesions noted Neuro General: alert, awake and tone normal Extrem General: no edema Psych Appearance: disheveled Mood: anxious mood Course Vital Signs Vital signs: Vital Signs Temperature 36.5 C 04/17/19 20:33 Pulse 112 H 04/17/19 20:33 Respiratory Rate 17 04/17/19 20:33 Pulse Oximetry 96 04/17/19 20:33 Temperature 36.5 C 04/17/19 20:33 Temperature Source Skin 04/17/19 20:33 Pulse 112 H 04/17/19 20:33 Respiratory Rate 17 04/17/19 20:33 Respiratory Effort Non-Labored 04/17/19 20:37 Blood Pressure Position Supine 04/17/19 20:33 Pulse Oximetry 96 04/17/19 20:33 Oxygen Delivery Method Room Air 04/17/19 20:33 Oxygen Flow Rate 0 04/17/19 20:33 Pain Level 3 04/17/19 20:33 Lab/Test Results Lab/Test Results: Laboratory Tests Range/Units 04/17/19 20:08 WBC (4.4-10.8) k/cumm 6.22 RBC (4.00-5.20) m/cumm 4.18 Hgb (12.0-15.5) g/dL 14.9 Hct (36.0-46.0) % 42.2 MCV (80-95) fL 101.0 H MCH (27.0-33.0) pg 35.6 H MCHC (32.0-36.0) g/dL 35.3 RDW (11.7-14.6) % 12.2 Plt Count (130-400) x1000/uL 196 MPV (8.0-11.0) fL 9.6 Immature Gran % % 0.2 Neutrophils % 56.6 Lymphocytes % 28.0 Monocytes % 14.1 Eosinophils % 0.6 Basophils % 0.5 Absolute Neutrophils (1.2-6.7) k/cumm 3.52 Absolute Lymphocytes (1.2-3.4) k/cumm 1.74 Absolute Monocytes (0.11-0.7) k/cumm 0.88 H Absolute Eosinophils (0.0-0.7) k/cumm 0.04 Absolute Basophils (0.0-0.2) k/cumm 0.03
[2019-04-17 21:07] LABS: ALT 27 U/L (14-59); AST 44 U/L (15-37); Albumin 3.4 g/dL (3.4-5.0); Alkaline Phosphatase 96 U/L (46-116); Anion Gap 13.7 mmol/L (3-11); BUN 4 mg/dL (7-18); Bilirubin, Total 0.3 mg/dL (0.2-1.0); CO2 25.3 mmol/L (21.0-32.0); CREATININE 0.61 mg/dL (0.55-1.02); Calcium 8.7 mg/dL (8.5-10.1); Chloride 101 mmol/L (98-107); Glucose 97 mg/dL (74-106); PTT Activated 29.9 sec (21.0-31.4); Potassium 3.7 mmol/L (3.5-5.1); Prothrombin Time 10.3 sec (9.3-11.0); Sodium 140 mmol/L (136-145); Total Protein 8.1 g/dL (6.4-8.2)
[2019-04-17] MEDS: THIAMINE 100 MG in Normal Saline 100 ML 200 MG IVPB (21:08)
[2019-04-17] MEDS: LORazepam 1 MG TAB PO (21:08)
[2019-04-17 21:17] LABS: Troponin I < 0.05 ng/Ml (<0.06)
[2019-04-17 21:29] LABS: ETHANOL BLOOD 297.3 mg/dL (<3)
[2019-04-17 21:37] LABS: TSH (W/Ref FT4) 4.14 uIU/mL (0.36-3.74)
[2019-04-17 21:54] LABS: FREE T4 0.85 ng/dL (0.76-1.46)
[2019-04-17] MEDS: dilTIAZem CD 120 MG CAPCR 240 MG PO (21:59)
--- NOTE | 2019-04-17 22:00 | DI.VRAD_ITS ---
PROCEDURE INFORMATION: Exam: XR Chest, 2 Views Exam date and time: 04/17/2019 9:16 PM Age: 59 years old Clinical indication: Chest pain; Type not specified TECHNIQUE: Imaging protocol: XR of the chest Views: 2 views. COMPARISON: CR XR CHEST 2V PA LATERAL 03/21/2019 10:50 PM FINDINGS: Lungs: Unremarkable. No consolidation. Pleural space: Unremarkable. No pleural effusion. No pneumothorax. Heart/Mediastinum: Unremarkable. No cardiomegaly. Bones/joints: No acute abnormality or aggressive osseous lesion. IMPRESSION: Negative for acute thoracic pathology. Dictated and Authenticated by: Lorenzo Shukla MD. Ordering:JAYLA Chamberlain MD
[2019-04-17 23:44] LABS: Troponin I < 0.05 ng/Ml (<0.06)
[2019-04-17] MEDS: dilTIAZem 125 MG in Normal Saline 100 ML IV (23:45)
[2019-04-18] VITALS (131 sets, daily range): BP systolic 78–145; BP diastolic 53–89; PULSE 59–133; RESP 14–36; TEMP 36.2–36.8; O2SAT 1–97
--- NOTE | 2019-04-18 01:33 | HPE_ITS ---
Date of service: 04/18/19 Time of Service: 01:33 Assessment and Plan Assessment and plan (1) Atrial fibrillation with rapid ventricular response: Status: Acute Assessment and plan: Patient admitted to the ICU for diltiazem drip after unable to break atrial fibrillation and control rate with her oral medication. It seems her alcohol use again is the trigger. I have ordered her oral diltiazem and hopefully we can wean her off the drip today. She has not been anticoagulated due to low chads Vascor and history of subarachnoid hemorrhage in setting of ongoing alcohol use disorder. (2) Chest pain: Status: Acute Assessment and plan: Patient's chest pressure appears to correspond with her atrial fibrillation. Initial troponin and EKG not concerning for acute ischemia. Will monitor on telemetry and cycle enzymes per emergency room plan. (3) Alcohol abuse: Status: Chronic Assessment and plan: Patient has chronic alcohol use disorder with history of withdrawal. She denies history of seizures. Placed her on [place] protocol. She does express desire to quit drinking. We discussed possible rehabilitation placement upon discharge. She has used acamprosate in the past, but did not feel it was effective. She may consider alternative options such as naltrexone. She does have history of opiate use disorder and was on buprenorphine until 2015. She denies any recent use or cravings. Will confirm with UDS. (4) Macrocytosis: Status: Acute Assessment and plan: Continue B12 and folate supplementation, though the alcohol itself is likely principal etiology. (5) Tobacco abuse: Status: Chronic Assessment and plan: Patient pre-contemplative regarding quitting smoking. She would like a Nicotrol inhaler for now. (6) Subclinical hypothyroidism: Status: Acute Assessment and plan: TSH mildly elevated, but normal free T4. No treatment indicated. Can be followed as an outpatient. (7) Transaminitis: Status: Acute Assessment and plan: Elevated AST consistent with alcoholic hepatitis. This is been much worse at previous presentations. (8) DVT prophylaxis: Status: Acute Assessment and plan: History of subarachnoid hemorrhage, this was in the setting of trauma and was not recent. Will use Lovenox. (9) Discharge planning issues: Status: Acute Assessment and plan: Patient is currently in the ICU. I did confirm that she is full code, though she was not 100% sure about this and had not thought much about it. Encouraged to consider filling out COLST form and discussing this with loved ones. History of Present Illness History of Present Illness Chief Complaint: Chest pressure Narrative: 59-year-old smoker with active alcohol use disorder and history of atrial fibrillation who presented to the emergency room with chest pressure that is come and gone over the past several weeks. She describes pressure as midsternal, occasionally extending into the left neck. Onset is random, not associated with exertion. Feels like a weight on her chest, not sharp pain. Associated with lightheadedness and shortness of breath. Not associated with nausea, diaphoresis, or clear sense of palpitations. Sensation can last for hours, and go away randomly. Has persisted this evening. Patient states she is drinking 6-8 beers per day every day for at least months. She does remember that when she left went into rehab. She had at least 3 large beers the afternoon prior to admission. She had a similar presentation to the emergency room on March 21, 2019, as well as January 15 and November 22, 2018 Review of Systems Narrative: General: No weight changes. No fevers or chills. She has been eating. No headaches. She has had more blurring of her vision over the past month. No eye pain or irritation. No congestion or sore throat. He does have a chronic cough that is productive of clear sputum. No hemoptysis. No leg edema. Occasional heartburn, no nausea or vomiting. No diarrhea or constipation. No blood in the stool or melena. No dysuria or hematuria. No vaginal bleed. No new joint pain or swelling. No skin changes, but she does have dry itchy skin, and easily bruises with scratching. No open wounds. No focal numbness or weakness. [facility] Medical History Alcohol abuse (Chronic) Anxiety and depression (Inactive 08/06/14) Atrial fibrillation with rapid ventricular response (Inactive) Opiate addiction (Inactive 08/06/14) in recovery. weaned off suboxone through [facility] 05/05/14 Pulmonary nodules (Inactive) SAH (subarachnoid hemorrhage) (Inactive) Tobacco abuse (Chronic 07/07/17) Surgical History bunionectomy (Inactive) [place]en a few years ago 2005ish History of bilateral tubal ligation (Acute) Family History Mother Diabetes Essential hypertension Personal history of malignant neoplasm lung, breast CA Father No problems noted. Sister Essential hypertension Sister No problems noted. Brother No problems noted. Maternal Aunt Personal history of malignant neoplasm breast Social History (Updated 04/18/19 @ 01:39 by Sridhar Birch) Smoking/Tobacco Use Status: Current every day Tobacco Type: cigarettes Alcohol Intake: current Alcohol Intake frequency: 3 or more drinks per day Alcohol type: beer Drug use: Never Substance use type: does not use Details: pt reports beer today Household members: significant other Do you feel safe at home: Yes Do you feel safe in your relationship?: Yes Additional Social history: Lives with long-term boyfriend Stepan in [place]. Last work at [employer] but has not worked in years. 2 adult children, including daughter in [place] and son and 2 baby grandkids and [place] Meds Home Medications and Allergies Home Medications Medication Instructions Recorded Confirmed Type aspirin 81 mg PO DAILY #30 tab 01/17/19 03/21/19 Rx cyanocobalamin (vitamin B-12) 1,000 mcg PO DAILY #30 tab 01/17/19 04/17/19 Rx [Vitamin B-12] diltiazem HCl [Cardizem CD] 240 mg PO DAILY #30 cap 01/17/19 04/17/19 Rx folic acid 1 mg PO DAILY #30 tab 01/17/19 04/17/19 Rx magnesium oxide 400 mg PO DAILY #30 tab 01/17/19 04/17/19 Rx multivitamin [Multiple Vitamins] 1 tab PO DAILY #30 tab 01/17/19 04/17/19 Rx nicotine 21 mg TRANSDERMAL DAILY #30 ea 01/17/19 03/21/19 Rx thiamine mononitrate (vit B1) 100 mg PO DAILY #30 tab 01/17/19 04/17/19 Rx [Vitamin B-1 (mononitrate)] Allergies Allergy/AdvReac Type Severity Reaction Status Date / Time No Known Allergies Allergy Unverified 04/17/19 20:38 Exam Narrative Exam Narrative: General: Alert and oriented x3, sitting up, coherent and ple asant, speaking in full sentences. HEENT: Normocephalic, atraumatic. Nipples equal round reactive to light with extraocular motions intact, conjunctive are clear with no icterus. No rhinorrhea. Moist mucous membranes with some red spots on soft palate, but no other lesions. Neck is supple with no masses, no elevation of JVP. Lungs: Diffusely diminished, no rales or wheezes. Normal effort. Cardiovascular: Tachycardic and irregularly irregular. No murmurs or rubs. Abdomen: Active bowel sounds. Soft, nondistended. No organomegaly or other masses. Mild epigastric tenderness to deep palpation. Extremities: No cyanosis, clubbing, or edema. Skin: Dry in shins and legs with thickened purple patch right huynh. Very dry in feet, some maceration between toes, dystrophic nails. Neurologic: Normal speech and coordination grossly. Normal movement of 4 extremities. Normal tone. No tremor currently. Psychiatric: Normal mood and affect Results EKG: Atrial fibrillation with rate of 117, no acute ischemic changes. Labs Result diagrams: 04/17/19 20:08 04/17/19 20:08 Labs: Laboratory Results - last 24 hr 04/17/19 04/17/19 04/17/19 20:08 20:08 20:08 WBC 6.22 RBC 4.18 Hgb 14.9 Hct 42.2 MCV 101.0 H MCH 35.6 H MCHC 35.3 RDW 12.2 Plt Count 196 MPV 9.6 Immature Gran % 0.2 Neutrophils % 56.6 Lymphocytes % 28.0 Monocytes % 14.1 Eosinophils % 0.6 Basophils % 0.5 Absolute Neutrophils 3.52 Absolute Lymphocytes 1.74 Absolute Monocytes 0.88 H Absolute Eosinophils 0.04 Absolute Basophils 0.03 PT INR APTT D-Dimer Sodium 140 Potassium 3.7 Chloride 101 Carbon Dioxide 25.3 Anion Gap 13.7 H BUN 4 L Creatinine 0.61 Estimated GFR/1.73 m2 >= 60.00 Glucose 97 Calcium 8.7 Total Bilirubin 0.3 AST 44 H ALT 27 Alkaline Phosphatase 96 Troponin I < 0.05 Total Protein 8.1 Albumin 3.4 TSH Free T4 Ethyl Alcohol 04/17/19 04/17/19 04/17/19 20:08 20:08 20:08 WBC RBC Hgb Hct MCV MCH MCHC RDW Plt Count MPV Immature Gran % Neutrophils % Lymphocytes % Monocytes % Eosinophils % Basophils % Absolute Neutrophils Absolute Lymphocytes Absolute Monocytes Absolute Eosinophils Absolute Basophils PT 10.3 INR 1.0 APTT 29.9 D-Dimer Cancelled Sodium Potassium Chloride Carbon Dioxide Anion Gap BUN Creatinine Estimated GFR/1.73 m2 Glucose Calcium Total Bilirubin AST ALT Alkaline Phosphatase Troponin I Total Protein Albumin TSH 4.14 H Free T4 0.85 Ethyl Alcohol 04/17/19 04/17/19 20:08 23:20 WBC RBC Hgb Hct MCV MCH MCHC RDW Plt Count MPV Immature Gran % Neutrophils % Lymphocytes % Monocytes % Eosinophils % Basophils % Absolute Neutrophils Absolute Lymphocytes Absolute Monocytes Absolute Eosinophils Absolute Basophils PT INR APTT D-Dimer Sodium Potassium Chloride Carbon Dioxide Anion Gap BUN Creatinine Estimated GFR/1.73 m2 Glucose Calcium Total Bilirubin AST ALT Alkaline Phosphatase Troponin I < 0.05 Total Protein Albumin TSH Free T4 Ethyl Alcohol 297.3 Last Vital Signs Temp 36.5 C 04/18/19 01:06 Pulse 119 H 04/18/19 01:06 Resp 20 04/18/19 01:24 BP 98/62 L 04/18/19 01:06 Pulse Ox 89 L 04/18/19 01:24
[2019-04-18] MEDS: LORazepam 1 MG TAB PO/SL ×2 (06:11→09:47)
[2019-04-18 07:17] LABS: Magnesium 1.7 mg/dL (1.8-2.4); Troponin I < 0.05 ng/Ml (<0.06)
[2019-04-18 07:27] LABS: PHOSPHORUS 3.2 mg/dL (2.6-4.7)
[2019-04-18] MEDS: Enoxaparin 40 MG/0.4 ML SYR SC (08:01)
[2019-04-18] MEDS: Magnesium Oxide 400 MG TAB PO (08:02)
[2019-04-18] MEDS: dilTIAZem CD 120 MG CAPCR 240 MG PO (08:02)
[2019-04-18] MEDS: Aspirin E.C. 81 MG TABEC PO (08:02)
[2019-04-18] MEDS: Cyanocobalamin 500 MCG TAB 1000 MCG PO (08:02)
[2019-04-18] MEDS: Multivitamin TAB 1 TAB PO (08:02)
[2019-04-18] MEDS: Thiamine 100 MG TAB PO (08:03)
--- NOTE | 2019-04-18 08:03 | PHARADMIT ---
Admission Pharmacy Clinical Review ATRIAL FIBRILLATION with RAPID VENTRICULAR RESPONSE Code Status Full Code CIWA Current Weight SCORE-5 Wgt-69.4 kg Renally Cleared and Narrow Therapeutic Index Meds CrCl~74.49 mL/min Meds-OK QTc Value / Action Taken QTc-477 BP Control, Fever BP- 114/87 Tmax-36.8C Electrolytes reviewed Na-140 K+3.7 Mag-1.7 DVT Prophylaxis Lovenox 40mg,ASA-ec Opiate Usage / Scheduled Bowel Regimen Ordered No No Plt/SCr for Heparin / Enoxaparin Plts-196 SCr-0.61 INR for Warfarin inr-1.0 H/H stable, WBC/Bands H&H- 14.9/42.2 WBC-6.22 Antibiotic appropriateness none Cultures and Sensitivities none Surgical ABX d/c within 24 hr NA DM control / Insulin Dosing BG-97 Heart Failure (Check EF%) (KENNETH's, B-Block, Diuretics) DIltiazem-CD IV to PO Switch No Home Meds Reviewed Yesa Home Meds Not Ordered Citalopram, Vistaril, Comments ETOH- 297.3
--- NOTE | 2019-04-18 08:32 | W.PM.PROGNOT ---
Subjective Subjective Interval history since last seen: Afib - drip off at 2 am, back on at 6 because the HR went up. STill on the drip, 7 mg/hr. SBP 120, HR 96. Just received diltiazem CD 240 mg. States no refills on diltiazem at home and this is how it happens. Slight amount of chest pressure on trying to take a breath in. Was able to transfer to [facility]. CIWA score 5. received 1 mg of ativan at 6 am. Feels anxious. On 1 L of O2 - 89% on room air. Objective Objective Clinical Data: Abnormal lab results 04/17/19 04/17/19 04/17/19 Range/Units 20:08 20:08 20:08 MCV 101.0 H (80-95) fL MCH 35.6 H (27.0-33.0) pg Absolute Monocytes 0.88 H (0.11-0.7) k/cumm Anion Gap 13.7 H (3-11) mmol/L BUN 4 L (7-18) mg/dL Magnesium (1.8-2.4) mg/dL AST 44 H (15-37) U/L TSH 4.14 H (0.36-3.74) uIU/mL 04/18/19 Range/Units 06:30 MCV (80-95) fL MCH (27.0-33.0) pg Absolute Monocytes (0.11-0.7) k/cumm Anion Gap (3-11) mmol/L BUN (7-18) mg/dL Magnesium 1.7 L (1.8-2.4) mg/dL AST (15-37) U/L TSH (0.36-3.74) uIU/mL Vital Signs Temperature 36.8 C 04/18/19 07:49 Temperature Source Temporal Artery Scan 04/18/19 07:49 Pulse 90 04/18/19 07:49 Pulse 91 H 04/18/19 06:16 Respiratory Rate 25 H 04/18/19 06:16 Respiratory Effort 04/18/19 07:49 Respiratory Depth Normal 04/18/19 07:49 Respiratory Pattern Normal 04/18/19 07:49 Blood Pressure 114/87 04/18/19 07:49 Blood Pressure Mean 96 04/18/19 07:49 Blood Pressure Position Supine 04/18/19 01:06 Pulse Oximetry 1 L 04/18/19 07:49 Oxygen Delivery Method Nasal Cannula 04/18/19 07:49 Oxygen Flow Rate 2 04/18/19 04:04 Pain Level 0 04/18/19 07:49 Intake & Output 04/17/19 04/17/19 04/18/19 11:59 23:59 11:59 Intake Total 1101 / 1101 19.601 / 19.601 Output Total 800 / 800 Balance 1101 / 1101 -780.399 / -780.399 Weight 72.2 kg 69.4 kg Intake: IV 1101 / 1101 19.601 / 19.601 Output: Urine 800 / 800 Other: Urine Color Pale Yellow Urine Appearance Clear Urine Odor None Voiding Methods Bedside Commode Laboratory Results WBC 6.22 k/cumm (4.4-10.8) 04/17/19 20:08 RBC 4.18 m/cumm (4.00-5.20) 04/17/19 20:08 Hgb 14.9 g/dL (12.0-15.5) 04/17/19 20:08 Hct 42.2 % (36.0-46.0) 04/17/19 20:08 MCV 101.0 fL (80-95) H 04/17/19 20:08 MCH 35.6 pg (27.0-33.0) H 04/17/19 20:08 MCHC 35.3 g/dL (32.0-36.0) 04/17/19 20:08 RDW 12.2 % (11.7-14.6) 04/17/19 20:08 Plt Count 196 x1000/uL (130-400) 04/17/19 20:08 MPV 9.6 fL (8.0-11.0) 04/17/19 20:08 Immature Gran % 0.2 % 04/17/19 20:08 Neutrophils % 56.6 04/17/19 20:08 Lymphocytes % 28.0 04/17/19 20:08 Monocytes % 14.1 04/17/19 20:08 Eosinophils % 0.6 04/17/19 20:08 Basophils % 0.5 04/17/19 20:08 Absolute Neutrophils 3.52 k/cumm (1.2-6.7) 04/17/19 20:08 Absolute Lymphocytes 1.74 k/cumm (1.2-3.4) 04/17/19 20:08 Absolute Monocytes 0.88 k/cumm (0.11-0.7) H 04/17/19 20:08 Absolute Eosinophils 0.04 k/cumm (0.0-0.7) 04/17/19 20:08 Absolute Basophils 0.03 k/cumm (0.0-0.2) 04/17/19 20:08 PT 10.3 sec (9.3-11.0) 04/17/19 20:08 INR 1.0 (0.9-1.1) 04/17/19 20:08 APTT 29.9 sec (21.0-31.4) 04/17/19 20:08 D-Dimer Cancelled 04/17/19 20:08 Sodium 140 mmol/L (136-145) 04/17/19 20:08 Potassium 3.7 mmol/L (3.5-5.1) 04/17/19 20:08 Chloride 101 mmol/L (98-107) 04/17/19 20:08 Carbon Dioxide 25.3 mmol/L (21.0-32.0) 04/17/19 20:08 Anion Gap 13.7 mmol/L (3-11) H 04/17/19 20:08 BUN 4 mg/dL (7-18) L 04/17/19 20:08 Creatinine 0.61 mg/dL (0.55-1.02) 04/17/19 20:08 Estimated GFR/1.73 m2 >= 60.00 (mL/min/1.73m2) 04/17/19 20:08 Glucose 97 mg/dL (74-106) 04/17/19 20:08 Calcium 8.7 mg/dL (8.5-10.1) 04/17/19 20:08 Phosphorus 3.2 mg/dL (2.6-4.7) 04/18/19 06:30 Magnesium 1.7 mg/dL (1.8-2.4) L 04/18/19 06:30 Total Bilirubin 0.3 mg/dL (0.2-1.0) 04/17/19 20:08 AST 44 U/L (15-37) H 04/17/19 20:08 ALT 27 U/L (14-59) 04/17/19 20:08 Alkaline Phosphatase 96 U/L (46-116) 04/17/19 20:08 Troponin I < 0.05 ng/Ml (<0.06) 04/18/19 06:30 Total Protein 8.1 g/dL (6.4-8.2) 04/17/19 20:08 Albumin 3.4 g/dL (3.4-5.0) 04/17/19 20:08 TSH 4.14 uIU/mL (0.36-3.74) H 04/17/19 20:08 Free T4 0.85 ng/dL (0.76-1.46) 04/17/19 20:08 Ethyl Alcohol 297.3 mg/dL (<3) 04/17/19 20:08
[2019-04-18 09:26] LABS: NT-proBNP 951 pg/mL (<300)
[2019-04-18] MEDS: Folic Acid 1 MG TAB PO (09:48)
[2019-04-18] MEDS: MAGNESIUM SULFATE 2 GM/50 ML BAG IVPB (11:07)
[2019-04-18] MEDS: Normal Saline Flush 10 ML SYR IVP (11:07)
--- NOTE | 2019-04-18 15:25 | W.PM.DS.N ---
Date of service: 04/18/19 Time of Service: 15:25 DS: Diagnosis Discharge Diagnosis (1) Atrial fibrillation with rapid ventricular response: Status: Acute (2) Chest pain: Status: Acute (3) Alcohol abuse: Status: Chronic (4) Macrocytosis: Status: Acute (5) Tobacco abuse: Status: Chronic (6) Subclinical hypothyroidism: Status: Acute (7) Transaminitis: Status: Acute Discharge Plan Disposition Patient Disposition: HOME Condition: Fair Discharge Details Chief Complaint: Chest Pain Clinical Impression: Atrial fibrillation with rapid ventricular response, Alcohol abuse, Chest pain Reason For Visit: ATRIAL FIBRILLATION WITH RAPID VENTRICULAR RESPONS Admit Date/Time: 04/17/19 23:46 Admit Provider: Sridhar Birch Attending Provider: Sridhar Birch Primary Care Provider: Amarilys Barrera ED Provider: Bulmaro Reeder Hospital Course Hospital Course: Ms Bee is a 59 year old female with PMHx of Afib, not on anticoagulation due to h/o noncompliance and alcohol abuse, as well as tobacco abuse, b12 deficiency, and COPD, who was admitted to [facility] hospitalist service on 04/18/2019 with rapid afib and chest pain. She did require diltiazem gtt overnight, but was able to be weaned off of it once she was given her oral diltiazem. While initially there was mild hypoxia, this resolved by the time of discharge - it is possible that the patient has mild upper respiratory infection going on, but it is not clinically significant. She does not require oxygen on ambulation. She is medically stable to be discharged home today. Ideally, she would stop drinking. Care for patient on day of discharge took 45 minutes. Home Meds and New Rx's Prescriptions: Continued multivitamin [Multiple Vitamins] Tablet 1 tab PO DAILY Qty: 30 RF: 3 diltiazem HCl [Cardizem CD] 240 mg capsule,extended release 24hr 240 mg PO DAILY Qty: 30 RF: 3 aspirin 81 mg Tablet,Delayed Release (Dr/Ec) 81 mg PO DAILY Qty: 30 RF: 3 magnesium oxide 400 mg (241.3 mg magnesium) tablet 400 mg PO DAILY Qty: 30 RF: 3 cyanocobalamin (vitamin B-12) [Vitamin B-12] 500 mcg Tablet 1,000 mcg PO DAILY Qty: 30 RF: 3 nicotine 21 mg/24 hr Patch 24 Hour 21 mg transdermal DAILY Qty: 30 RF: 3 folic acid 1 mg Tablet 1 mg PO DAILY Qty: 30 RF: 3 thiamine mononitrate (vit B1) [Vitamin B-1 (mononitrate)] 100 mg Tablet 100 mg PO DAILY Qty: 30 RF: 3 Discharge Instructions Instructions: Atrial Fibrillation (DC) Additional Instructions: Return to the hospital with any fever, bleeding, chest pain, or shortness of breath. You must stop drinking and smoking. Follow up with your PCP in 1-2 days. Referrals: Amarilys Barrera NP [Primary Care Provider] - Activity:: Activity as Tolerated Equipment/Supplies:: No Equipment Needed Diet:: As Tolerated Discharge Orders Discharge Orders: Discharge Order (Routine); Ordered 04/18/19 Ordered By: Amy Chávez DS: Summary Status at Discharge Functional status at discharge: independent ambulation Overall status at discharge: patient is back to baseline Mental Status: mental status grossly normal Speech and Movement: speech and movement normal Mood: anxious mood Affect: anxious affect Exam Narrative Exam Narrative: General: Middle-aged female, anxious, A&Ox3, sitting in a chair, asking to go home HEENT: EOMI, MMM Heart: irregularly irregular rhythm Lungs: coarse breath sounds B Abdomen: soft, nontender, nondistended Extremities: no e/c/c BLE's Psych Mental Status: mental status grossly normal Speech and Movement: speech and movement normal Mood: anxious mood Affect: anxious affect DS: Data Vitals/I&O Vitals and I&O: Vital Signs Temperature 36.2 C L 04/18/19 14:05 Temperature Source Temporal Artery Scan 04/18/19 14:05 Pulse 71 04/18/19 13:30 Pulse 78 04/18/19 13:30 Respiratory Rate 22 04/18/19 13:30 Respiratory Effort 04/18/19 07:49 Respiratory Depth Normal 04/18/19 07:49 Respiratory Pattern Normal 04/18/19 07:49 Blood Pressure 95/66 L 04/18/19 13:30 Blood Pressure Mean 72 04/18/19 13:30 Blood Pressure Position Supine 04/18/19 01:06 Pulse Oximetry 95 04/18/19 13:30 Oxygen Delivery Method Nasal Cannula 04/18/19 07:49 Oxygen Flow Rate 2 04/18/19 04:04 Pain Level 0 04/18/19 07:49 Intake & Output 04/17/19 04/18/19 04/18/19 23:59 11:59 23:59 Intake Total 1101 / 1101 19.601 / 69.601 50 / 69.601 Output Total 800 / 800 Balance 1101 / 1101 -780.399 / -730.399 50 / -730.399 Weight 72.2 kg 69.4 kg Intake: IV 1101 / 1101 19.601 / 69.601 50 / 69.601 Output: Urine 800 / 800 Other: Urine Color Pale Yellow Urine Appearance Clear Urine Odor None Voiding Methods Bedside Commode Data Completed and Pending Completed studies during hospitalization [Text1]: CXR: No acute pulmonary findings. Labs on day of discharge: Labs from last 24 hours 04/18/19 04/17/19 04/17/19 06:30 23:20 20:08 WBC RBC Hgb Hct MCV MCH MCHC RDW Plt Count MPV Immature Gran % Neutrophils % Lymphocytes % Monocytes % Eosinophils % Basophils % Absolute Neutrophils Absolute Lymphocytes Absolute Monocytes Absolute Eosinophils Absolute Basophils PT INR APTT D-Dimer Sodium Potassium Chloride Carbon Dioxide Anion Gap BUN Creatinine Estimated GFR/1.73 m2 Glucose Calcium Phosphorus 3.2 Magnesium 1.7 L Total Bilirubin AST ALT Alkaline Phosphatase Troponin I < 0.05 < 0.05 NT-Pro-B Natriuret Pep 951 H Total Protein Albumin TSH Free T4 Ethyl Alcohol 297.3 04/17/19 04/17/19 04/17/19 20:08 20:08 20:08 WBC RBC Hgb Hct MCV MCH MCHC RDW Plt Count MPV Immature Gran % Neutrophils % Lymphocytes % Monocytes % Eosinophils % Basophils % Absolute Neutrophils Absolute Lymphocytes Absolute Monocytes Absolute Eosinophils Absolute Basophils PT 10.3 INR 1.0 APTT 29.9 D-Dimer Cancelled Sodium Potassium Chloride Carbon Dioxide Anion Gap BUN Creatinine Estimated GFR/1.73 m2 Glucose Calcium Phosphorus Magnesium Total Bilirubin AST ALT Alkaline Phosphatase Troponin I NT-Pro-B Natriuret Pep Total Protein Albumin TSH 4.14 H Free T4 0.85 Ethyl Alcohol 04/17/19 04/17/19 04/17/19 20:08 20:08 20:08 WBC 6.22 RBC 4.18 Hgb 14.9 Hct 42.2 MCV 101.0 H MCH 35.6 H MCHC 35.3 RDW 12.2 Plt Count 196 MPV 9.6 Immature Gran % 0.2 Neutrophils % 56.6 Lymphocytes % 28.0 Monocytes % 14.1 Eosinophils % 0.6 Basophils % 0.5 Absolute Neutrophils 3.52 Absolute Lymphocytes 1.74 Absolute Monocytes 0.88 H Absolute Eosinophils 0.04 Absolute Basophils 0.03 PT INR APTT D-Dimer Sodium 140 Potassium 3.7 Chloride 101 Carbon Dioxide 25.3 Anion Gap 13.7 H BUN 4 L Creatinine 0.61 Estimated GFR/1.73 m2 >= 60.00 Glucose 97 Calcium 8.7 Phosphorus Magnesium Total Bilirubin 0.3 AST 44 H ALT 27 Alkaline Phosphatase 96 Troponin I < 0.05 NT-Pro-B Natriuret Pep Total Protein 8.1 Albumin 3.4 TSH Free T4 Ethyl Alcohol [facility] Medical History Alcohol abuse (Chronic) Anxiety and depression (Inactive 08/06/14) Atrial fibrillation with rapid ventricular response (Inactive) Opiate addiction (Inactive 08/06/14) in recovery. weaned off suboxone through [facility] 05/05/14 Pulmonary nodules (Inactive) SAH (subarachnoid hemorrhage) (Inactive) Tobacco abuse (Chronic 07/07/17) Surgical History bunionectomy (Inactive) lamontangen a few years ago 2005ish History of bilateral tubal ligation (Acute) Family History Mother Diabetes Essential hypertension Personal history of malignant neoplasm lung, breast CA Father No problems noted. Sister Essential hypertension Sister No problems noted. Brother No problems noted. Maternal Aunt Personal history of malignant neoplasm breast Social History (Updated 04/18/19 @ 01:39 by Sridhar Birch) Smoking/Tobacco Use Status: Current every day Tobacco Type: cigarettes Alcohol Intake: current Alcohol Intake frequency: 3 or more drinks per day Alcohol type: beer Drug use: Never Substance use type: does not use Details: pt reports beer today Household members: significant other Do you feel safe at home: Yes Do you feel safe in your relationship?: Yes Additional Social history: Lives with long-term boyfriend Stepan in [place]. Last work at [employer] but has not worked in years. 2 adult children, including daughter in [place] and son and 2 baby grandkids and [place]
--- NOTE | 2019-04-18 18:08 | INITIAL_ITS ---
- If Service Date Differs Date of service: 04/18/19 Time of Service: 18:08 Care Management Initial Assess REASON FOR HOSPITALIZATION:: afib with rapid ventricular response PAST MEDICAL HISTORY/PAST SURGICAL HISTORY:: Alcohol abuse. subarachnoid hemorrhage and afib PREVIOUS FUNCTIONAL STATUS/SOCIAL/FAMILY SUPPORTS:: Shantel lives in a single family home in [place] [facility]. with her significant other Stepan that she has been with for 20 years. Shantel has 2 children, a son and a daughter. She states that her daughter is a good support but not her son. 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 She is independent with ADLs and other activities. She uses [facility] for transportation. CURRENT FUNCTIONAL STATUS:: Shantel is alert and engaged with CM she states she is leaving today even if it is AMA. She states that she has a friend that will pick her up from the hospital. Shantel states she forgets to pick up truck driver refills of her medication when she runs out. She states she continues to use alcohol she does not desire to quit at this time. She reports that she would like medication to treat her anxiety, CM did discuss risk of taking medications in combination with alcohol. Shantel is not interested in a personal development coach at this time states she has a contact from previous admission. ADVANCE DIRECTIVES:: None on file does not want to complete today. Has patient been provided with information about the portal?: Yes Did the patient sign up for the portal?: No CODE STATUS:: Full Code INSURANCE COVERAGE / FINANCIAL ISSUES:: [facility] CURRENT HOME/COMMUNITY SERVICES/EQUIPMENT:: [facility] for transportation PRIMARY CARE PHYSICIAN:: Amarilys Barrera POTENTIAL DISCHARGE NEEDS:: Follow up appointment with primary care and referral to communtiy supports when ready to assist with alcohol use and abuse. CM will send information to Rama Winn RN [facility] and request visit be coordinated with behavioral health at primary care. PATIENT/FAMILY EDUCATION NEEDS:: Education r/t discharge plan, medication, limitations and follow up plan of care. ANTICIPATED BARRIERS TO DISCHARGE:: None TRANSPORTATION:: Via private car with friend PLAN:: Shantel is being discharged home today, she feels she is ready to return home. CM will contact [facility] and request follow up and scheduling appointment with behavioral health.
--- NOTE | 2019-04-18 18:16 | PDOC.CMDIS ---
- If Service Date Differs Date of service: 04/18/19 Time of Service: 18:16 LACE Index Scoring Tool - Questions: Length of Stay (in days): 1 Acuity (Admit via E.D.?): Yes Comorbidities: Chronic Pulmonary Disease E.D. Visits: 9 - Answers: Total Score: 10 Risk of Readmission: High Risk Care Management Discharge Reason for Hospitalization: afib with rapid ventricular response Discharge Plan: Shantel is being discharged home today, she feels she is ready to return home. CM will contact [facility] and request follow up and scheduling appointment with behavioral health.Follow up appointment with primary care and referral to communtiy supports when ready to assist with alcohol use and abuse. No other needs identified by the patient at this time. transportation by friend. Patient/Family Education Needs: Discharge education, limitations and follow up plan of care including community resources and supports. Services Needed at Discharge: Transportation
== END 2019-04-18 14:30 | disposition home or self-care (01) | DRG 310 ==
LOC: ER 23:46 → ICU 04-18 00:33
PROVIDERS: Admitting Provider Family Medicine; Emergency Provider Student in an Organized Health Care Education/Training Program; PCP Nurse Practitioner; Visit Provider Internal Medicine
DX: I48.91 Unspecified atrial fibrillation; R07.9 Chest pain, unspecified; F10.20 Alcohol dependence, uncomplicated; D75.89 Other specified diseases of blood and blood-forming organs; F17.210 Nicotine dependence, cigarettes, uncomplicated; E02 Subclinical iodine-deficiency hypothyroidism; R74.0 Nonspecific elevation of levels of transaminase and lactic acid dehydrogenase [LDH]; F11.11 Opioid abuse, in remission
CPT/HCPCS: 36415; 80053; 93005; 94618; 96361; 96365; 99223; 99239; 99285; J1650; 71046; 80320; 83735; 83880; 84100; 84439; 84443; 84484; 85025; 85379; 85610; 85730; 93010

== ENCOUNTER 2019-04-23 21:38 | Inpatient (IN) | payer OTHER, SELFPAY ==
[2019-04-23] VITALS (37 sets, daily range): BP systolic 70–95; BP diastolic 49–60; PULSE 56–148; RESP 11–31; TEMP 36.4; O2SAT 86–97
--- NOTE | 2019-04-23 21:45 | DI.RAD_ITS ---
EXAM: XR PORTABLE CHEST AP CLINICAL HISTORY: chest pain, r/o acute disease TECHNIQUE: COMPARISON: XR CHEST 2V PA LATERAL from 04/17/2019 FINDINGS: The heart is not enlarged. Lungs are predominantly clear with mild changes of scarring, no gross int erval change from prior films including April 17. IMPRESSION: No evidence of acute process
--- NOTE | 2019-04-23 21:52 | W.ED.GENAD ---
Discharge Plan Disposition Patient Disposition: [facility] IN[facility] Condition: Fair Discharge Details Chief Complaint: Chest Pain Clinical Impression: Atrial fibrillation with rapid ventricular response, Alcohol abuse, Chest pain, Hypotension Primary Care Provider: Amarilys Barrera ED Provider: Cristine Marquis Home Meds and New Rx's Prescriptions: No Action multivitamin [Multiple Vitamins] Tablet 1 tab PO DAILY Qty: 30 RF: 3 diltiazem HCl [Cardizem CD] 240 mg capsule,extended release 24hr 240 mg PO DAILY Qty: 30 RF: 3 aspirin 81 mg Tablet,Delayed Release (Dr/Ec) 81 mg PO DAILY Qty: 30 RF: 3 magnesium oxide 400 mg (241.3 mg magnesium) tablet 400 mg PO DAILY Qty: 30 RF: 3 cyanocobalamin (vitamin B-12) [Vitamin B-12] 500 mcg Tablet 1,000 mcg PO DAILY Qty: 30 RF: 3 nicotine 21 mg/24 hr Patch 24 Hour 21 mg transdermal DAILY Qty: 30 RF: 3 folic acid 1 mg Tablet 1 mg PO DAILY Qty: 30 RF: 3 thiamine mononitrate (vit B1) [Vitamin B-1 (mononitrate)] 100 mg Tablet 100 mg PO DAILY Qty: 30 RF: 3 Medical Decision Making 2144 -- 59-year-old female with a history of alcohol abuse, recently diagnosed atrial fibrillation, subarachnoid hemorrhage, anxiety and depression presents with chest heaviness since this afternoon. Patient was admitted here recently for newly diagnosed A. fib with RVR treated with Cardizem drip while inpatient and switched to p.o. diltiazem upon discharge. Patient states she ran out of her diltiazem several days ago. She has been drinking 4 tall boys of alcohol daily which she has been for several years. She denies any dizziness or shortness of breath. EKG noted 149, A. fib no acute ST elevation or depression. QTc 453. QRS 72. BP hypotensive 70/49. Will give IV fluids and plan for dose of Cardizem IV dose x 2229 --heart rate improved to 70s with slow administration of 20 mg due to low BP. BP slightly improved with IV fluids to 95/60. After Cardizem, BP decreased again to 79/59. Labs and imaging reviewed and unremarkable other than alcohol 380. Will admit for A. fib with RVR, medication noncompliance, hypotension. Banana bag ordered as patient will likely go through alcohol withdrawal. Case discussed with hospitalist who accepts patient for admission. 2350 -- BP 89/64 Medical Records Medical records reviewed: Yes I reviewed the patient's medical records. Imaging Data Radiologic Study: Radiologist's impression: XR Chest, 1 View Exam date and time: 04/23/2019 9:49 PM Age: 59 years old Clinical indication: Chest pain; Type not specified; Additional info: R/O acute disease TECHNIQUE: Imaging protocol: XR of the chest Views: 1 view. COMPARISON: CR XR CHEST 2V PA LATERAL 04/17/2019 9:16 PM FINDINGS: Lungs: Unremarkable. No consolidation. Pleural space: Unremarkable. No pleural effusion. No pneumothorax. Heart/Mediastinum: Unremarkable. No cardiomegaly. Bones/joints: Degenerative thoracic spine disease. IMPRESSION: No acute findings. No acute lung infiltrates or consolidation. No pulmonary edema. No pleural effusions. Degenerative thoracic spine disease. Lab Data Lab results reviewed: Yes I reviewed the patient's lab results. Labs: Laboratory Tests Range/Units 04/23/19 04/23/19 04/23/19 21:20 21:20 21:20 WBC (4.4-10.8) k/cumm 4.61 RBC (4.00-5.20) m/cumm 4.27 Hgb (12.0-15.5) g/dL 15.4 Hct (36.0-46.0) % 43.3 MCV (80-95) fL 101.4 H MCH (27.0-33.0) pg 36.1 H MCHC (32.0-36.0) g/dL 35.6 RDW (11.7-14.6) % 12.5 Plt Count (130-400) x1000/uL 221 MPV (8.0-11.0) fL 9.3 Immature Gran % % 0.4 Neutrophils % 44.0 Lymphocytes % 35.8 Monocytes % 17.8 Eosinophils % 1.1 Basophils % 0.9 Absolute Neutrophils (1.2-6.7) k/cumm 2.03 Absolute Lymphocytes (1.2-3.4) k/cumm 1.65 Absolute Monocytes (0.11-0.7) k/cumm 0.82 H Absolute Eosinophils (0.0-0.7) k/cumm 0.05 Absolute Basophils (0.0-0.2) k/cumm 0.04 Sodium (136-145) mmol/L 143 Potassium (3.5-5.1) mmol/L 4.1 Chloride (98-107) mmol/L 103 Carbon Dioxide (21.0-32.0) mmol/L 27.6 Anion Gap (3-11) mmol/L 12.4 H BUN (7-18) mg/dL 4 L Creatinine (0.55-1.02) mg/dL 0.69 Estimated GFR/1.73 m2 (mL/min/1.73m2) >= 60.00 Glucose (74-106) mg/dL 91 Calcium (8.5-10.1) mg/dL 8.8 Magnesium (1.8-2.4) mg/dL 1.9 Total Bilirubin (0.2-1.0) mg/dL 0.2 AST (15-37) U/L 85 H ALT (14-59) U/L 41 Alkaline Phosphatase (46-116) U/L 109 Troponin I (<0.06) ng/Ml < 0.05 NT-Pro-B Natriuret Pep (<300) pg/mL 64 Total Protein (6.4-8.2) g/dL 8.1 Albumin (3.4-5.0) g/dL 3.4 Ethyl Alcohol (<3) mg/dL Range/Units 04/23/19 21:20 WBC (4.4-10.8) k/cumm RBC (4.00-5.20) m/cumm Hgb (12.0-15.5) g/dL Hct (36.0-46.0) % MCV (80-95) fL MCH (27.0-33.0) pg MCHC (32.0-36.0) g/dL RDW (11.7-14.6) % Plt Count (130-400) x1000/uL MPV (8.0-11.0) fL Immature Gran % % Neutrophils % Lymphocytes % Monocytes % Eosinophils % Basophils % Absolute Neutrophils (1.2-6.7) k/cumm Absolute Lymphocytes (1.2-3.4) k/cumm Absolute Monocytes (0.11-0.7) k/cumm Absolute Eosinophils (0.0-0.7) k/cumm Absolute Basophils (0.0-0.2) k/cumm Sodium (136-145) mmol/L Potassium (3.5-5.1) mmol/L Chloride (98-107) mmol/L Carbon Dioxide (21.0-32.0) mmol/L Anion Gap (3-11) mmol/L BUN (7-18) mg/dL Creatinine (0.55-1.02) mg/dL Estimated GFR/1.73 m2 (mL/min/1.73m2) Glucose (74-106) mg/dL Calcium (8.5-10.1) mg/dL Magnesium (1.8-2.4) mg/dL Total Bilirubin (0.2-1.0) mg/dL AST (15-37) U/L ALT (14-59) U/L Alkaline Phosphatase (46-116) U/L Troponin I (<0.06) ng/Ml NT-Pro-B Natriuret Pep (<300) pg/mL Total Protein (6.4-8.2) g/dL Albumin (3.4-5.0) g/dL Ethyl Alcohol (<3) mg/dL 380.1 ECG Data Attestation: I personally reviewed and interpreted this ECG (s) as follows: Interpretation: Rate of 149, A. fib, no acute ST elevation or depression. QTc 453. QRS 70. HPI General Mode of arrival: EMS. Date/Time Provider Initiated Documentation: 04/23/19 21:52. Limitations to Documentation: no limitations. Information obtained by: patient. History of Present Illness 59 year old F presents to the emergency department with the chief complaint of Chest heaviness since this afternoon, with intensity rated at 6. Quality is described as other (Heaviness), and is localized to the chest. Patient reports no radiation. Patient started experiencing this hour(s) (This afternoon) and it has been constant. No relieving factors improve symptom(s), No exacerbating factors reported . Patient notes chest pain; denies diaphoresis, fever/chills, headaches, loss of appetite, malaise, nausea/vomiting and shortness of breath. Patient did receive the following treatments prior to arrival, none Related Data Home Medications Medication Instructions Recorded Confirmed aspirin 81 mg PO DAILY #30 tab 04/18/19 04/23/19 cyanocobalamin (vitamin B-12) 1,000 mcg PO DAILY #30 tab 04/18/19 04/17/19 [Vitamin B-12] diltiazem HCl [Cardizem CD] 240 mg PO DAILY #30 cap 04/18/19 04/23/19 folic acid 1 mg PO DAILY #30 tab 04/18/19 04/23/19 magnesium oxide 400 mg PO DAILY #30 tab 04/18/19 04/23/19 multivitamin [Multiple Vitamins] 1 tab PO DAILY #30 tab 04/18/19 04/23/19 nicotine 21 mg TRANSDERMAL DAILY #30 ea 04/18/19 thiamine mononitrate (vit B1) 100 mg PO DAILY #30 tab 04/18/19 04/23/19 [Vitamin B-1 (mononitrate)] Previous Rx's Medication Instructions Recorded aspirin 81 mg PO DAILY #30 tab 04/18/19 cyanocobalamin (vitamin B-12) 1,000 mcg PO DAILY #30 tab 04/18/19 [Vitamin B-12] diltiazem HCl [Cardizem CD] 240 mg PO DAILY #30 cap 04/18/19 folic acid 1 mg PO DAILY #30 tab 04/18/19 magnesium oxide 400 mg PO DAILY #30 tab 04/18/19 multivitamin [Multiple Vitamins] 1 tab PO DAILY #30 tab 04/18/19 nicotine 21 mg TRANSDERMAL DAILY #30 ea 04/18/19 thiamine mononitrate (vit B1) 100 mg PO DAILY #30 tab 04/18/19 [Vitamin B-1 (mononitrate)] Allergies Allergy/AdvReac Type Severity Reaction Status Date / Time No Known Allergies Allergy Unverified 04/17/19 20:38 General Stated Complaint: Chest Pain DANNY: 2 Review of Systems All systems reviewed & are unremarkable except as noted in HPI and below Constitutional Constitutional: Reports as per HPI, Denies chills and Denies fever(s) Eyes Eyes: Denies blurry vision ENT Ears, Nose, Mouth, and Throat: Denies dizziness, Denies sore throat and Denies throat swelling Cardiovascular Cardiovascular: Denies chest pain and Denies dyspnea Respiratory Respiratory: Denies cough and Denies dyspnea Gastrointestinal Gastrointestinal: Denies abdominal pain, Denies diarrhea and Denies vomiting Genitourinary Genitourinary: Denies hematuria and Denies dysuria Musculoskeletal Musculoskeletal: Denies back pain and Denies numbness Integumentary/Breasts Skin/Breast: Denies lesions and Denies rash Neurologic Neurologic: Denies dizziness, Denies focal weakness and Denies numbness Allergic/Immunologic Allergic/Immunologic: Denies throat swelling [facility] Medical History Alcohol abuse (Chronic) Anxiety and depression (Inactive 08/06/14) Atrial fibrillation with rapid ventricular response (Inactive) Opiate addiction (Inactive 08/06/14) in recovery. weaned off suboxone through [facility] 05/05/14 Pulmonary nodules (Inactive) SAH (subarachnoid hemorrhage) (Inactive) Tobacco abuse (Chronic 07/07/17) Surgical History bunionectomy (Inactive) lamontangen a few years ago 2005ish History of bilateral tubal ligation (Acute) Family History Mother Diabetes Essential hypertension Personal history of malignant neoplasm lung, breast CA Father No problems noted. Sister Essential hypertension Sister No problems noted. Brother No problems noted. Maternal Aunt Personal history of malignant neoplasm breast Social History Smoking/Tobacco Use Status: Current every day Tobacco Type: cigarettes Alcohol Intake: current Alcohol Intake frequency: 3 or more drinks per day Alcohol type: beer Drug use: Never Substance use type: does not use Details: pt reports beer today Household members: significant other Do you feel safe at home: Yes Do you feel safe in your relationship?: Yes Additional Social history: Lives with long-term boyfriend Stepan in [place]. Last work at [employer]) but has not worked in years. 2 adult children, including daughter in [place] and son and 2 baby grandkids and [place] Exam Const General: cooperative, no acute distress, disheveled and intoxicated appearing (Mild) Orientation: alert, awake and oriented x3 HENMT Head: normal to inspection Face and sinus: normal facial exam Mouth: mucous membranes dry Eyes General: appearance normal, both eyes and all related structures Pupils: PERRL EOM: EOM intact bilaterally Neck Neck: normal visual inspection and No submandibular swelling Lymphatic: no lymphadenopathy noted Chest Chest: normal inspection of the chest and no tenderness Resp Effort & Inspection: normal respiratory effort and able to speak in complete sentences Auscultation: clear to auscultation bilaterally Cardio Rate: tachycardic Rhythm: abnormal rhythm irregularly irregular GI Inspection: normal to inspection Palpation: soft, not firm, not rigid and nontender Auscultation: normal bowel sounds Skin General skin exam: no rashes or lesions noted Neuro General: alert, awake and oriented x3 Cognition: normal cognition Speech: speech normal Motor: muscle tone normal throughout Sensory Exam: no sensory deficits noted Extrem General: normal to inspection, full ROM, normal capillary refill, no calf tenderness bilaterally and no edema Psych Appearance: grossly normal Mental Status: mental status grossly normal Speech and Movement: speech and movement normal Affect: normal affect Course Vital Signs Vital signs: Vital Signs Temperature 97.5 F L 04/23/19 21:37 Respiratory Rate 16 04/23/19 21:37 Temperature 97.5 F L 04/23/19 21:37 Temperature Source Skin 04/23/19 21:37 Respiratory Rate 16 04/23/19 21:42 Respiratory Effort 04/23/19 21:42 Respiratory Depth Normal 04/23/19 21:42 Respiratory Pattern Normal 04/23/19 21:42 Pain Level 5 04/23/19 21:37 Comment 04/23/19 21:37
[2019-04-23] MEDS: Normal Saline 1,000 ML 1000 ML IV (21:54)
[2019-04-23 22:04] LABS: Abs Immature Grans 0.02 k/cumm (0.0-0.09); Absolute Basophil Count 0.04 k/cumm (0.0-0.2); Absolute Eosinophil Count 0.05 k/cumm (0.0-0.7); Absolute Lymphocyte Count 1.65 k/cumm (1.2-3.4); Absolute Monocyte Count 0.82 k/cumm (0.11-0.7); Absolute Neutrophil Count 2.03 k/cumm (1.2-6.7); Basophils % 0.9; Eosinophils % 1.1; HCT 43.3 % (36.0-46.0); HGB 15.4 g/dL (12.0-15.5); Immature Grans % 0.4 %; Lymphocytes % 35.8; Mean Corp. HGB Concentration 35.6 g/dL (32.0-36.0); Mean Corpuscular Hemoglobin 36.1 pg (27.0-33.0); Mean Corpuscular Volume 101.4 fL (80-95); Mean Platelet Volume 9.3 fL (8.0-11.0); Monocytes % 17.8; Platelet Count 221 x1000/uL (130-400); RBC 4.27 m/cumm (4.00-5.20); RBC Distribution Width 12.5 % (11.7-14.6); White Blood Cell Count 4.61 k/cumm (4.4-10.8)
--- NOTE | 2019-04-23 22:09 | DI.VRAD_ITS ---
PROCEDURE INFORMATION: Exam: XR Chest, 1 View Exam date and time: 04/23/2019 9:49 PM Age: 59 years old Clinical indication: Chest pain; Type not specified; Additional info: R/O acute disease TECHNIQUE: Imaging protocol: XR of the chest Views: 1 view. COMPARISON: CR XR CHEST 2V PA LATERAL 04/17/2019 9:16 PM FINDINGS: Lungs: Unremarkable. No consolidation. Pleural space: Unremarkable. No pleural effusion. No pneumothorax. Heart/Mediastinum: Unremarkable. No cardiomegaly. Bones/joints: Degenerative thoracic spine disease. IMPRESSION: No acute findings. No acute lung infiltrates or consolidation. No pulmonary edema. No pleural effusions. Degenerative thoracic spine disease. Dictated and Authenticated by: Noah Arceo MD. Ordering:BENJAMÍN Colunga MD
[2019-04-23] MEDS: dilTIAZem 25 MG/5 ML VIAL 20 MG IVP (22:11)
--- NOTE | 2019-04-23 22:19 | NUR.NOTE ---
Ordered for cardizem, BP soft 88/58, MD Marquis aware. Pt denies dizziness, lightheadedness. Med a/o.
[2019-04-23 22:22] LABS: ALT 41 U/L (14-59); AST 85 U/L (15-37); Albumin 3.4 g/dL (3.4-5.0); Alkaline Phosphatase 109 U/L (46-116); Anion Gap 12.4 mmol/L (3-11); BUN 4 mg/dL (7-18); Bilirubin, Total 0.2 mg/dL (0.2-1.0); CO2 27.6 mmol/L (21.0-32.0); CREATININE 0.69 mg/dL (0.55-1.02); Calcium 8.8 mg/dL (8.5-10.1); Chloride 103 mmol/L (98-107); Glucose 91 mg/dL (74-106); Magnesium 1.9 mg/dL (1.8-2.4); Potassium 4.1 mmol/L (3.5-5.1); Sodium 143 mmol/L (136-145); Total Protein 8.1 g/dL (6.4-8.2)
[2019-04-23 22:23] LABS: ETHANOL BLOOD 380.1 mg/dL (<3); Troponin I < 0.05 ng/Ml (<0.06)
[2019-04-23 22:28] LABS: NT-proBNP 64 pg/mL (<300)
--- NOTE | 2019-04-23 23:51 | HPE_ITS ---
Date of service: 04/23/19 Time of Service: 23:52 Assessment and Plan Assessment and plan (1) Hypotension: Start date: 04/23/19 Status: Acute Assessment and plan: This is a 59-year-old lady with chronic alcoholism who has presented with paroxysmal atrial fibrillation rapid ventricular sponsor recently which has been stable on Cardizem CD 240 mg daily though the patient stopped this in the recent week. She presented with recurrent atrial fibrillation with rapid ventricular response which did respond to IV diltiazem loading dose but she had a hypotensive reaction as well. She never had symptoms of hypotension and has responded to IV fluid resuscitation with probable dehydrated state with her chronic alcohol use. She will be continued on IV fluid resuscitation with IV diltiazem infusion if needed for recurrence of rapid ventricular response to atrial fibrillation. We will watch closely for hypotension recurrence. We will trend her troponins because of her chest pressure associated with her atrial fibrillation with these and thus far been negative. She is a full code no continue to drink and be noncompliant with medical follow-up. Qualifiers: Hypotension type: hypotension due to hypovolemia Qualified Code(s): I95.89 - Other hypotension; E86.1 - Hypovolemia (2) Atrial fibrillation with rapid ventricular response: Start date: 04/23/19 Status: Acute Assessment and plan: This has responded to IV diltiazem loading dose and will we will start infusion at a low dose if needed as long as she is not severely hypotensive with IV fluid resuscitation overnight. Trend troponins and consider follow-up with cardiology as an outpatient more close follow-up with her PMD for continuation of medical therapy when she stabilizes. She was advised to stop alcohol use which may be contributing to her dysrhythmia. (3) Alcohol abuse: Status: Chronic Assessment and plan: Patient will be placed on CIWA protocol with Ativan to be used as needed for anxiety as well for scoring high on this protocol. She was advised to stop alcohol long-term with prognosis poor for change. History of Present Illness History of Present Illness Chief Complaint: Palpitations with racing heart and chest pressure Narrative: This is a 59-year-old lady who is a chronic alcoholic drinking beer daily having gone through several alcoholic rehabilitation programs but none recently. 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 She recently has been having palpitations with a racing heart and chest pressure over the last several months. She was admitted recently for rapid ventricular response with atrial fibrillation and was stabilized on diltiazem 240 mg CD daily but stopping or running out of this medicine about a week ago. She has not followed up with her PMD. She continues to drink alcohol daily. She did have chest pressure with her palpitation today and she thinks that when she gets nervous about the palpitations it makes them worse. When she presented to the ED she has had several hours of chest heaviness with her palpitations which was located retrosternal without radiation but some associated dyspnea. She had no nausea or diaphoresis. In the ED she was given a loading dose of IV diltiazem and her heart rate did slow below 100 but she also dropped her systolic blood pressure below 90. She is slowly recovered with IV hydration and is having no palpitations or chest pressure presently. Initial troponins were negative. She has had a recent ech ocardiogram which showed a preserved left ventricular ejection fraction and her chest x-ray upon admission through the ED did not show any evidence of pulmonary process or effusions. Patient denies any weight gain or peripheral edema. She is a full code. Review of Systems Narrative: 13 point review of systems otherwise unrevealing or stable. [facility] Medical History Alcohol abuse (Chronic) Anxiety and depression (Inactive 08/06/14) Atrial fibrillation with rapid ventricular response (Inactive) Opiate addiction (Inactive 08/06/14) in recovery. weaned off suboxone through [facility] 05/05/14 Pulmonary nodules (Inactive) SAH (subarachnoid hemorrhage) (Inactive) Tobacco abuse (Chronic 07/07/17) Surgical History bunionectomy (Inactive) lamontangeleann a few years ago 2005ish History of bilateral tubal ligation (Acute) Family History Mother Diabetes Essential hypertension Personal history of malignant neoplasm lung, breast CA Father No problems noted. Sister Essential hypertension Sister No problems noted. Brother No problems noted. Maternal Aunt Personal history of malignant neoplasm breast Social History Smoking/Tobacco Use Status: Current every day Tobacco Type: cigarettes Alcohol Intake: current Alcohol Intake frequency: 3 or more drinks per day Alcohol type: beer Drug use: Never Substance use type: does not use Details: pt reports beer today Household members: significant other Do you feel safe at home: Yes Do you feel safe in your relationship?: Yes Additional Social history: Lives with long-term boyfriend Stepan in [place]. Last work at [employer] but has not worked in years. 2 adult children, including daughter in [place] and son and 2 baby grandkids and [place] Meds Home Medications and Allergies Home Medications Medication Instructions Recorded Confirmed Type aspirin 81 mg PO DAILY #30 tab 04/18/19 04/23/19 Rx cyanocobalamin (vitamin B-12) 1,000 mcg PO DAILY #30 tab 04/18/19 04/17/19 Rx [Vitamin B-12] diltiazem HCl [Cardizem CD] 240 mg PO DAILY #30 cap 04/18/19 04/23/19 Rx folic acid 1 mg PO DAILY #30 tab 04/18/19 04/23/19 Rx magnesium oxide 400 mg PO DAILY #30 tab 04/18/19 04/23/19 Rx multivitamin [Multiple Vitamins] 1 tab PO DAILY #30 tab 04/18/19 04/23/19 Rx nicotine 21 mg TRANSDERMAL DAILY #30 ea 04/18/19 Rx thiamine mononitrate (vit B1) 100 mg PO DAILY #30 tab 04/18/19 04/23/19 Rx [Vitamin B-1 (mononitrate)] Allergies Allergy/AdvReac Type Severity Reaction Status Date / Time No Known Allergies Allergy Unverified 04/17/19 20:38 Exam Narrative Exam Narrative: General: Patient appears older than stated age, smells strongly of alcohol and has normal speech with a very bright affect and jovial with conversation. She is in no acute distress and alert and oriented at least to person and place. HEENT: Normocephalic with thinning hair, face has coarsened features with no edema. Eyes reveal pupils equal and reactive to light symmetrically with extraocular movement intact and sclera anicteric. Oropharynx with dry oral mucosa and poor dentition with discoloration and some missing teeth. Neck: Supple without JVD. Lungs: Fair aeration with bronchovesicular breath sounds diffusely but no focalizing rales or rhonchi. Breast: Exam deferred. Heart: Irregular irregular rhythm with normal rate at the time of my exam and no appreciable murmur gallop. Abdomen: Scaphoid contour, soft and nontender with no palpable hepatosplenomegaly. Bowel sounds positive in all quadrants. Genitalia/rectal: Exam deferred. Extremities: Without clubbing, cyanosis or edema. Peripheral pulses are intact. Skin: Darkly tanned especially over sun exposed areas with thinning of the skin and roughened texture with decreased turgor. No suspicious lesions. Neuro: Cranial nerves II through XII grossly intact, no focalizing motor deficits. No tremor. Psych: Fair insight with jovial mood as mentioned. Patient is slightly inebriated at the time of my exam. Remote and recent memory appear to be grossly intact. Results Imaging Imaging Studies: Imaging protocol: XR of the chest Views: 1 view. COMPARISON: CR XR CHEST 2V PA LATERAL 04/17/2019 9:16 PM FINDINGS: Lungs: Unremarkable. No consolidation. Pleural space: Unremarkable. No pleural effusion. No pneumothorax. Heart/Mediastinum: Unremarkable. No cardiomegaly. Bones/joints: Degenerative thoracic spine disease. IMPRESSION: No acute findings. No acute lung infiltrates or consolidation. No pulmonary edema. No pleural effusions. Degenerative thoracic spine disease. Dictated and Authenticated by: Noah Arceo MD. Date of study: 11/23/2018 Transthoracic Echocardiography M-mode, complete 2D, complete spectral Doppler, and color Doppler *STUDY CONCLUSIONS* Summary: 1. Left ventricle: The cavity size was normal. Systolic function was hyperdynamic. The estimated ejection fraction was 65-70%. The study is not technically sufficient to allow evaluation of LV diastolic function. 2. Left atrium: The atrium was mildly dilated. 3. Right ventricle: The cavity size was normal. Wall thickness was normal. Systolic function was normal. 4. Atrial septum: No defect or patent foramen ovale was identified. 5. Pulmonary arteries: Pulmonary systolic pressure was >= 20mm Hg. 6. Inferior vena cava: Poorly visualized. Labs Result diagrams: 04/23/19 21:20 04/23/19 21:20 Labs: Laboratory Results - last 24 hr 04/23/19 04/23/19 04/23/19 21:20 21:20 21:20 WBC 4.61 RBC 4.27 Hgb 15.4 Hct 43.3 MCV 101.4 H MCH 36.1 H MCHC 35.6 RDW 12.5 Plt Count 221 MPV 9.3 Immature Gran % 0.4 Neutrophils % 44.0 Lymphocytes % 35.8 Monocytes % 17.8 Eosinophils % 1.1 Basophils % 0.9 Absolute Neutrophils 2.03 Absolute Lymphocytes 1.65 Absolute Monocytes 0.82 H Absolute Eosinophils 0.05 Absolute Basophils 0.04 Sodium 143 Potassium 4.1 Chloride 103 Carbon Dioxide 27.6 Anion Gap 12.4 H BUN 4 L Creatinine 0.69 Estimated GFR/1.73 m2 >= 60.00 Glucose 91 Calcium 8.8 Magnesium 1.9 Total Bilirubin 0.2 AST 85 H ALT 41 Alkaline Phosphatase 109 Troponin I < 0.05 NT-Pro-B Natriuret Pep 64 Total Protein 8.1 Albumin 3.4 Ethyl Alcohol 04/23/19 21:20 WBC RBC Hgb Hct MCV MCH MCHC RDW Plt Count MPV Immature Gran % Neutrophils % Lymphocytes % Monocytes % Eosinophils % Basophils % Absolute Neutrophils Absolute Lymphocytes Absolute Monocytes Absolute Eosinophils Absolute Basophils Sodium Potassium Chloride Carbon Dioxide Anion Gap BUN Creatinine Estimated GFR/1.73 m2 Glucose Calcium Magnesium Total Bilirubin AST ALT Alkaline Phosphatase Troponin I NT-Pro-B Natriuret Pep Total Protein Albumin Ethyl Alcohol 380.1 Last Vital Signs Temp 36.4 C L 04/23/19 21:37 Pulse 81 04/23/19 23:09 Resp 16 04/23/19 23:09 BP 79/59 L 04/23/19 23:09 Pulse Ox 93 L 04/23/19 23:09
[2019-04-24] VITALS (146 sets, daily range): BP systolic 80–124; BP diastolic 50–97; PULSE 63–143; RESP 2–37; TEMP 36.5–36.9; O2SAT 85–99
[2019-04-24] MEDS: MAGNESIUM SULFATE 8.12 MEQ, MULTIVITAMIN 10 ML, THIAMINE 100 MG, FOLIC ACID 1 MG in Nor... 168.867 MG IV (00:30)
[2019-04-24] MEDS: dilTIAZem 125 MG in Normal Saline 100 ML IV (02:32)
[2019-04-24] MEDS: Heparin 5,000 UNITS/ML VIAL 5000 UNITS SC ×2 (06:10→13:27)
[2019-04-24] MEDS: Normal Saline 1,000 ML 150 ML IV ×2 (07:00→13:30)
[2019-04-24 07:01] LABS: HCT 36.9 % (36.0-46.0); HGB 12.9 g/dL (12.0-15.5); Mean Corpuscular Volume 103.1 fL (80-95); Mean Platelet Volume 9.4 fL (8.0-11.0); Platelet Count 212 x1000/uL (130-400); RBC 3.58 m/cumm (4.00-5.20); RBC Distribution Width 12.8 % (11.7-14.6); White Blood Cell Count 4.18 k/cumm (4.4-10.8)
[2019-04-24 07:20] LABS: ALT 34 U/L (14-59); AST 67 U/L (15-37); Albumin 2.7 g/dL (3.4-5.0); Alkaline Phosphatase 85 U/L (46-116); Anion Gap 12.3 mmol/L (3-11); BUN 4 mg/dL (7-18); Bilirubin, Total 0.3 mg/dL (0.2-1.0); CO2 21.7 mmol/L (21.0-32.0); CREATININE 0.54 mg/dL (0.55-1.02); Calcium 7.6 mg/dL (8.5-10.1); Chloride 108 mmol/L (98-107); Glucose 80 mg/dL (74-106); PHOSPHORUS 3.5 mg/dL (2.6-4.7); Potassium 3.6 mmol/L (3.5-5.1); Sodium 142 mmol/L (136-145); Total Protein 6.4 g/dL (6.4-8.2)
[2019-04-24 07:21] LABS: Troponin I < 0.05 ng/Ml (<0.06)
[2019-04-24] MEDS: Thiamine 100 MG TAB PO (07:36)
[2019-04-24] MEDS: Folic Acid 1 MG TAB PO (07:36)
[2019-04-24] MEDS: Cyanocobalamin 500 MCG TAB 1000 MCG PO (07:36)
[2019-04-24] MEDS: Aspirin E.C. 81 MG TABEC PO (07:36)
[2019-04-24] MEDS: Magnesium Oxide 400 MG TAB PO (07:36)
--- NOTE | 2019-04-24 07:58 | INITIAL_ITS ---
- If Service Date Differs Date of service: 04/24/19 Time of Service: 07:58 Care Management Initial Assess REASON FOR HOSPITALIZATION:: Hypotension, chronic ETOH PAST MEDICAL HISTORY/PAST SURGICAL HISTORY:: Alcohol abuse. subarachnoid hemorrhage and afib PREVIOUS FUNCTIONAL STATUS/SOCIAL/FAMILY SUPPORTS:: Shantel lives in a single family home in [place]. with her significant other Stepan that she has been with for 20 years. Shantel has 2 children, a son and a daughter. She states that her daughter is a good support but not her son. 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 She is independent with ADLs and other activities. She uses [facility] for transportation. CURRENT FUNCTIONAL STATUS:: Shantel is alert she states she wants to go home today. When CM reviewed reason for admission she states she began having chest pain and called 911. Shantel states that she has not been able to stop using alcohol she and her SO of 19 years drink together. She states that she has attended rehab in the past she is not interested in going there today. She is familer with recovery center she has been given the information to contact job coach/job developer. Shantel states she has an appointment with primary care on Tuesday and that she has set up [facility]. CM confirmed with [facility] that transportation is all set up for 04/25/19. ADVANCE DIRECTIVES:: None on file does not want to complete today. Has patient been provided with information about the portal?: Yes Did the patient sign up for the portal?: No CODE STATUS:: Full Code INSURANCE COVERAGE / FINANCIAL ISSUES:: [facility] CURRENT HOME/COMMUNITY SERVICES/EQUIPMENT:: [facility] for transportation PRIMARY CARE PHYSICIAN:: Amarilys Barrera POTENTIAL DISCHARGE NEEDS:: Follow up appointment with primary care and referral to communtiy supports when ready to assist with alcohol use and abuse. Patient would benefit from a wrap around community team. PATIENT/FAMILY EDUCATION NEEDS:: Discharge education, limitations and follow up plan of care, encourage support through [facility] head strength and conditioning coach and substance abuse services ANTICIPATED BARRIERS TO DISCHARGE:: Anticipate patient will leave AMA TRANSPORTATION:: To be determine r/t disposition PLAN:: Shantel will be discharged when medically cleared. Readmission - Within the Past 30 Days Yes or No: Y - Date of First Admission Date of 1st Admission: 04/17/19 - Date of this Admission Date of Admission: 04/24/19 This admission was: Through ED - Office Visit Since 1st Admission Have you seen your PCP in the office since discharge?: No Had an appointment Been Scheduled?: Yes Date of Scheduled Appointment: 04/25/2019 - I. Interview patient and/or Family Difficulty reaching your doctor or getting an office appt?: No Have you had trouble purchasing/ or taking medication?: Yes Describe barriers fpr purchasing or taking medication: Does not pick medications up from the pharmacy patient states her medications are sent [facility] she was not aware the pharmacy had closed over a year ago. Patient states she is not able to get to the pharmacy due to where she lives. [facility] is available for transportation. Did you feel ready for discharge when you left the last time: Yes If patient did not receive services, were there orders at: Yes What were the barriers for not receiving services?: CM referred patient to [facility] for community case management and to the chronic acute care certified nursing assistant for follow up. Did you call your physician beore you came to the ED?: No How do you think you became sick enough to come back?: I began having chest pain and became anxious and felt I needed to return to the hospital. - Ask the Care Team Members: What do you think caused the patient to be readmitted: Patient does not show for her primary care appointments per the chronic acute care certified nursing assistant she is difficult to get in touch with. - ED visits How many ED visits in the past 12 months: 6 - Assessment for Readmission Summary of readmission circumstances, based upon interviews: Shantel admits that she leaves AMA often because she wants a beer. She reports she has people that can get to the store for her to purchase the beer which is close to home. She states the pharmacy is harder to get to due to being in [place]. She would like to have her prescriptions sent to [facility] and agrees to try [facility] for transport and picking machine operator her medications. Venecia knows how to use [facility] and is able to contact them and schedule her rides. CM will fax a referral to [facility] and [facility] which she agrees to.
[2019-04-24] MEDS: Multivitamin TAB 1 TAB PO (08:02)
[2019-04-24] MEDS: Albuterol 2.5 MG/3 ML INH SOLN VIAL UPD (08:49)
[2019-04-24] MEDS: LORazepam 1 MG TAB PO/SL ×2 (09:12→12:15)
--- NOTE | 2019-04-24 09:34 | W.PM.PROGNOT ---
Date of Service Date of service: 04/24/19 Time of Service: 09:34 Assessment and Plan Assessment and plan (1) Atrial fibrillation with rapid ventricular response: Status: Acute Assessment and plan: Continue titration of IV diltiazem while we initiate oral diltiazem. Once her rate is controlled and the IV diltiazem has been weaned off we will convert her back to long-acting diltiazem and discharge her home. She is not a candidate for long-term anticoagulation due to her history of alcoholism along with medical noncompliance and her risk of falls. She should remain on aspirin for stroke prophylaxis. She is advised that she needs to quit drinking (2) Alcohol abuse: Status: Chronic Assessment and plan: Continue CIWA protocol monitoring. Treat as needed. Subjective Subjective Interval history since last seen: 59 year old female with PMHx of Afib, not on anticoagulation due to h/o noncompliance and alcohol abuse, as well as tobacco abuse, b12 deficiency, and COPD, who was admitted to [facility] hospitalist service on 04/18/2019 with rapid afib and chest pain. She was initially treated with IV diltiazem but then quickly weaned off after being started back on her oral Cardizem. She has a history of noncompliance with her medications due to her alcoholism and allegedly due to lack of access to her medications. When I asked her about why she did not take her medication she states that she ran out of them. She desires to return home as soon as possible. However this morning she remains in atrial fibrillation with variable rate control. At times her heart rates been in the 130s but with titration of her Cardizem drip up to 7.5 mg/h her heart rates come back down into the low 90s. I started on some oral immediate acting diltiazem with a plan to transition her over to long-acting diltiazem once her IV diltiazem rate has been weaned off. Hopefully she will build to be discharged home tomorrow. Because of her history of alcoholism we are monitoring her with CIWA protocol. Exam Narrative Exam Narrative: Middle-age female who is alert and oriented person place time circumstance. She has obvious tremors in her hands. Lungs are clear to auscultation although she has diminished breath sounds bilaterally no rhonchi or rales. Heart is irregularly irregular but tachycardic. Abdomen soft and nontender. Objective Objective Clinical Data: Abnormal lab results 04/23/19 04/23/19 04/24/19 Range/Units 21:20 21:20 06:15 WBC (4.4-10.8) k/cumm RBC (4.00-5.20) m/cumm MCV 101.4 H (80-95) fL MCH 36.1 H (27.0-33.0) pg Absolute Monocytes 0.82 H (0.11-0.7) k/cumm Chloride 108 H (98-107) mmol/L Anion Gap 12.4 H 12.3 H (3-11) mmol/L BUN 4 L 4 L (7-18) mg/dL Creatinine 0.54 L (0.55-1.02) mg/dL Calcium 7.6 L (8.5-10.1) mg/dL AST 85 H 67 H (15-37) U/L Albumin 2.7 L (3.4-5.0) g/dL 04/24/19 Range/Units 06:15 WBC 4.18 L (4.4-10.8) k/cumm RBC 3.58 L (4.00-5.20) m/cumm MCV 103.1 H (80-95) fL MCH 36.0 H (27.0-33.0) pg Absolute Monocytes (0.11-0.7) k/cumm Chloride (98-107) mmol/L Anion Gap (3-11) mmol/L BUN (7-18) mg/dL Creatinine (0.55-1.02) mg/dL Calcium (8.5-10.1) mg/dL AST (15-37) U/L Albumin (3.4-5.0) g/dL Vital Signs Temperature 36.5 C 04/24/19 07:49 Temperature Source Temporal Artery Scan 04/24/19 07:49 Pulse 109 H 04/24/19 08:58 Pulse 124 H 04/24/19 07:45 Respiratory Rate 20 04/24/19 08:58 Respiratory Effort 04/24/19 08:41 Respiratory Depth Shallow 04/24/19 08:41 Respiratory Pattern Normal 04/24/19 08:41 Blood Pressure 102/77 04/24/19 07:49 Blood Pressure Mean 85 02/25/20 07:49 Blood Pressure Position Supine 04/24/19 05:04 Pulse Oximetry 98 04/24/19 08:58 Oxygen Delivery Method Room Air 04/24/19 08:44 Oxygen Flow Rate 0 04/24/19 08:44 Pain Level 0 04/24/19 07:49 Comment 04/23/19 21:37 Intake & Output 04/23/19 04/23/19 04/24/19 11:59 23:59 11:59 Intake Total 1000 / 1000 1263.783 / 1263.783 Output Total 1050 / 1050 Balance 1000 / 450 213.783 / 213.783 Weight 70.9 kg 70.9 kg Intake: IV 1000 / 1000 1023.783 / 1023.783 Oral 240 / 240 Output: Urine 1050 / 1050 Other: Urine Color Pale Yellow Urine Appearance Clear Stool Size Moderate Stool Characteristics Liquid # Voids 1 Laboratory Results WBC 4.18 k/cumm (4.4-10.8) L 04/24/19 06:15 RBC 3.58 m/cumm (4.00-5.20) L 04/24/19 06:15 Hgb 12.9 g/dL (12.0-15.5) D 04/24/19 06:15 Hct 36.9 % (36.0-46.0) 04/24/19 06:15 MCV 103.1 fL (80-95) H 04/24/19 06:15 MCH 36.0 pg (27.0-33.0) H 04/24/19 06:15 MCHC 35.0 g/dL (32.0-36.0) 04/24/19 06:15 RDW 12.8 % (11.7-14.6) 04/24/19 06:15 Plt Count 212 x1000/uL (130-400) 04/24/19 06:15 MPV 9.4 fL (8.0-11.0) 04/24/19 06:15 Immature Gran % 0.4 % 04/23/19 21:20 Neutrophils % 44.0 04/23/19 21:20 Lymphocytes % 35.8 04/23/19 21:20 Monocytes % 17.8 04/23/19 21:20 Eosinophils % 1.1 04/23/19 21:20 Basophils % 0.9 04/23/19 21:20 Absolute Neutrophils 2.03 k/cumm (1.2-6.7) 04/23/19 21:20 Absolute Lymphocytes 1.65 k/cumm (1.2-3.4) 04/23/19 21:20 Absolute Monocytes 0.82 k/cumm (0.11-0.7) H 04/23/19 21:20 Absolute Eosinophils 0.05 k/cumm (0.0-0.7) 04/23/19 21:20 Absolute Basophils 0.04 k/cumm (0.0-0.2) 04/23/19 21:20 Sodium 142 mmol/L (136-145) 04/24/19 06:15 Potassium 3.6 mmol/L (3.5-5.1) 04/24/19 06:15 Chloride 108 mmol/L (98-107) H 04/24/19 06:15 Carbon Dioxide 21.7 mmol/L (21.0-32.0) 04/24/19 06:15 Anion Gap 12.3 mmol/L (3-11) H 04/24/19 06:15 BUN 4 mg/dL (7-18) L 04/24/19 06:15 Creatinine 0.54 mg/dL (0.55-1.02) L 04/24/19 06:15 Estimated GFR/1.73 m2 >= 60.00 (mL/min/1.73m2) 04/24/19 06:15 Glucose 80 mg/dL (74-106) 04/24/19 06:15 Calcium 7.6 mg/dL (8.5-10.1) L 04/24/19 06:15 Phosphorus 3.5 mg/dL (2.6-4.7) 04/24/19 06:15 Magnesium 1.9 mg/dL (1.8-2.4) 04/23/19 21:20 Total Bilirubin 0.3 mg/dL (0.2-1.0) 04/24/19 06:15 AST 67 U/L (15-37) H 04/24/19 06:15 ALT 34 U/L (14-59) 04/24/19 06:15 Alkaline Phosphatase 85 U/L (46-116) 04/24/19 06:15 Troponin I < 0.05 ng/Ml (<0.06) 04/24/19 06:15 NT-Pro-B Natriuret Pep 64 pg/mL (<300) 04/23/19 21:20 Total Protein 6.4 g/dL (6.4-8.2) 04/24/19 06:15 Albumin 2.7 g/dL (3.4-5.0) L 04/24/19 06:15 Ethyl Alcohol 380.1 mg/dL (<3) 04/23/19 21:20
[2019-04-24] MEDS: dilTIAZem 60 MG TAB PO ×2 (10:44→13:28)
--- NOTE | 2019-04-24 10:48 | W.NUTCONSULT ---
Date of service: 04/24/19 Time of Service: 10:57 Nutritional Consult ASSESSMENT: 59 year old female admitted with hypotension with long standing history of alcohol abuse with history of numerous vitamin/mineral deficiencies. Following Regular Diet. BMI wnl for age. Considered at nutritional risk in view of hx of alcohol abuse and poor nutritional status prior to admit. Estimated needs: [id number] kcal, 70-75 g protein, 1800 ml fluid. Current diet appropriate. Will monitor labs values, po intake and weight and make warranted adjustments to meal plan. NUTRITIONAL DIAGNOSIS: alcohol abuse INTERVENTION: vitamin/mineral supplementation Regular Diet MONITORING AND EVALUATION: weight, po intake, labs Time Spent in Nutritional Counseling and Treatment: 0 time spent face to face
--- NOTE | 2019-04-24 10:58 | NUR.NOTE ---
Nursing Note: Pt reports having high anxiety, with no relief from PRN lorazepam 2mg administration. Relaxation interventions such as music, TV, dimming of lights, sound reduction offered. Pt refused all interventions except dimmed lights. will continue to monitor and assist with pt coping
--- NOTE | 2019-04-24 17:09 | PHA.ADMREV ---
Pharmacy Clinical Review - Admission Clinical Review (Last Reviewed 04/23/19 @ 23:52 by Baldomero Dumont) Atrial fibrillation with rapid ventricular response (Acute) Chest pain (Acute) Hypotension (Acute) No Known Allergies Allergy (Unverified 04/17/19 20:38) Height 5 ft 5 in Weight 70.9 kg - Renal Dosing Renal Dosing: BUN 4 mg/dL (7-18) L 04/24/19 06:15 Creatinine 0.54 mg/dL (0.55-1.02) L 04/24/19 06:15 Medications needing adjustments: Reviewed (Crcl ~66.45 mL/min current meds okay) - Anticoagulation Anticoagulation: Hgb 12.9 g/dL (12.0-15.5) D 04/24/19 06:15 Hct 36.9 % (36.0-46.0) 04/24/19 06:15 Plt Count 212 x1000/uL (130-400) 04/24/19 06:15 Creatinine 0.54 mg/dL (0.55-1.02) L 04/24/19 06:15 DVT Prohphylaxis: Reviewed Medications: Heparin Therapeutic Anticoagulation: N/A - Opiate Usage Evaluate Pain Scale/Pains Meds: N/A - Relevant Labs Sodium 142 mmol/L (136-145) 04/24/19 06:15 Potassium 3.6 mmol/L (3.5-5.1) 04/24/19 06:15 Chloride 108 mmol/L (98-107) H 04/24/19 06:15 Phosphorus 3.5 mg/dL (2.6-4.7) 04/24/19 06:15 Magnesium 1.9 mg/dL (1.8-2.4) 04/23/19 21:20 Electrolytes, C-Reactive P, ESR: Reviewed (has PO mag ordered daily) - Antimicrobial Stewardship Antibiotic appropriateness: N/A Surgical Abx d/c within 24 hr: N/A De-escalation: N/A Culture review/Resistance: N/A IV to PO Switch: N/A - DM Control DM Control: Glucose 80 mg/dL (74-106) 04/24/19 06:15 Insulin Dosing: N/A - Heart Failure/UT Heart Failure/UT: Troponin I < 0.05 ng/Ml (<0.06) 04/24/19 06:15 NT-Pro-B Natriuret Pep 64 pg/mL (<300) 04/23/19 21:20 EF%, KENNETH's, B-Blockers, Diuretics: N/A - BP Control BP Control: Blood Pressure [Left Arm] 105/69 Blood Pressure [Left Arm] 102/77 Blood Pressure 118/68 Blood Pressure 109/69 Blood Pressure 109/69 If elevated: N/A - QTc Review If Elevated: N/A (QTc 453) - IV to PO Switch IV Medications: N/A - Home Meds Home Med List reviewed: Reviewed (all home meds ordered) - Current meds Current Medication Order Review: Intervened (discontinued a bunch of overridden med orders) - Comments Comments/Follow Ups: PO diltiazem ordered today, watch for discontinuation of dilt drip
--- NOTE | 2019-04-24 17:24 | NUR.NOTE ---
1640 I went in the patient's room to answer the call cloud and the patient states I can't do this [stay here], I'm going home tonight. I talked to the patient about her main issue with staying the night and she states it is boredom. I talked with the patient on ways we can combat the boredom (music, reading, playing cards, TV, walking etc.). I explained the risk of going home AMA and not having diltiazem. I encouraged the patient to work with us on managing the boredom but the patient refused and stated that she is going home tonight. She called her friend and set a pick-up time for 1800. I notified Dr. Davey and he plans to D/C the patient with meds as soon as he is available this evening. RCT is being schedule for the patient as her friend does not drive in the dark. Prescriptions sent to [facility] Nursing Note:
== END 2019-04-24 18:30 | disposition home or self-care (01) | DRG 316 ==
LOC: ER 23:15 → ICU 04-24 00:44
PROVIDERS: Admitting Provider Family Medicine; Emergency Provider Physician Assistant; PCP Nurse Practitioner; Visit Provider Internal Medicine
DX: I95.89 Other hypotension (principal); I48.0 Paroxysmal atrial fibrillation; F10.20 Alcohol dependence, uncomplicated
CPT/HCPCS: 36415; 80053; 85027; 93005; 96361; 96375; 99223; 99232; 99285; 71045; 80320; 83735; 83880; 84100; 84484; 85025; 93010; 94640; J1644; J7613

== ENCOUNTER 2019-05-11 22:09 | Emergency (ER) | payer OTHER, SELFPAY ==
--- NOTE | 2019-05-11 00:17 | DI.CT_ITS ---
EXAM: CT CHEST PE CTA CLINICAL HISTORY: elevated dimer, tachy, eval for PE. TECHNIQUE: Imaging Protocol: Axial CT angiography was performed with multi-slice acquisition and mu lti-planar and/or 3D reconstructions. CONTRAST MATERIAL: Intravenous: Omnipaque 350 Contrast volume:66 ml COMPARISON: CT CHEST PE CTA from 01/15/2019 FINDINGS: Pulmonary Arteries: No evidence of filling defect to suggest pulmonary emboli. Tracheobronchial tree: Patent where visualized. Mediastinum and Jaye: No dominant adenopathy or fluid collection. Pulmonary parenchyma: No consolidation or dominant measurable mass. Dependent atelectatic changes and scarring are seen in the lungs. Pleura: No effusion or pneumothorax. Heart: The heart is not dilated. No coronary artery calcifications are seen. No pericardial effusion. Aorta: Thoracic aorta non-dilated. No aortic dissection. Upper abdomen: Unremarkable. Bones: No acute abnormality. IMPRESSION: No evidence of pulmonary embolism, thoracic aortic dissection or aneurysm. DATA REPOSITORY: All CT scans at this facility are submitted to the National Radiology Data Registry (NRDR) Dose Index Registry (DIR) with the [employer] (ACR). RADIATION OPTIMIZATION: All CT scans at this facility use at least one of these dose optimization te chniques: automated exposure control; mA and/or kV adjustment per patient size (includes targeted exa ms where dose is matched to clinical indication); or iterative reconstruction.
[2019-05-11 22:05] VITALS: BP 99/78; PULSE 119; RESP 17; TEMP 36.5; O2SAT 100
--- NOTE | 2019-05-11 22:18 | ED.GENADUL_ITS ---
Discharge Plan Disposition Patient Disposition: HOME Condition: Good Discharge Details Chief Complaint: Anxiety Clinical Impression: Alcohol abuse, Anxiety, Chronic a-fib Primary Care Provider: Amariyls Barrera ED Provider: Cristi Dela Cruz Home Meds and New Rx's Prescriptions: No Action multivitamin [Multiple Vitamins] Tablet 1 tab PO DAILY Qty: 30 RF: 3 aspirin 81 mg Tablet,Delayed Release (Dr/Ec) 81 mg PO DAILY Qty: 30 RF: 3 magnesium oxide 400 mg (241.3 mg magnesium) tablet 400 mg PO DAILY Qty: 30 RF: 3 cyanocobalamin (vitamin B-12) [Vitamin B-12] 500 mcg Tablet 1,000 mcg PO DAILY Qty: 30 RF: 3 nicotine 21 mg/24 hr Patch 24 Hour 21 mg transdermal DAILY Qty: 30 RF: 3 folic acid 1 mg Tablet 1 mg PO DAILY Qty: 30 RF: 3 thiamine mononitrate (vit B1) [Vitamin B-1 (mononitrate)] 100 mg Tablet 100 mg PO DAILY Qty: 30 RF: 3 diltiazem HCl [Cardizem CD] 240 mg capsule,extended release 24hr 240 mg PO DAILY Qty: 30 RF: 1 Discharge Instructions Instructions: Anxiety (ED) Additional Instructions: At this time your work-up is very reassuring. No abnormalities on your CT scan. There is a small evidence of a potential minimal urinary tract infection, this was treated here in the ED with an antibiotic called fosfomycin. Please drink plenty of water at home, follow-up closely with your primary care provider. If you notice any worsening of your symptoms, or any new symptoms such as vomiting, diarrhea, fever, chills, shortness of breath, chest pain, numbness, weakness, or fainting , please return immediately to the emergency department for reevaluation. Please follow up with your primary care provider as soon as possible for reassessment and reevaluation. As always, it was a pleasure participating in your medical care today. Referrals: Amarilys Barrera NP [Primary Care Provider] - Medical Decision Making 59-year-old female with a past medical history of atrial fibrillation, not on anticoagulation except for what appears to be daily aspirin, who does take Cardizem 240 mg daily, presents today for anxiety. She has a history of anxiety attacks, and states that over the last few months she has been having notable increase in her anxiety. Over the last few weeks this is worsened and definitely increased over the last 2 days. She has been taking at home benzodiazepines, but this is not been medicating her symptoms. She does not know what she feels anxious about, but she states that she feels generalized palpitations, small amount of chest pain, no pleuritic chest pain, and a feeling of unease. She denies any tearing or ripping sensation in her chest. She denies any history of PE dissection or aneurysm. Denies PE risk factors such as recent long car rides, immobilization, recent surgery, prior history of DVT or PE, family history of PE or DVT, morbid obesity, exogenous estrogen and smoking, hemoptysis, history of cancer. She denies any history of personal cardiac disease but she does smoke. She states that currently her symptoms feel very similar to previous anxiety attacks. She denies IV or illicit drug use. No other complaints at this time. Exam demonstrates no focal deficits, heart rate does appear to be mildly elevated, she does appear to be in A. fib. Radial pulses equal bilaterally, symptoms appearing consistent with dissection. ACS unlikely. Likely secondary to anxiety. However with the continuation of her symptomatology over the last few weeks I am concerned for perhaps an underlying etiology. We will get a d-dimer, gently rehydrate, evaluate for significant electrolyte abnormality. 2:26 AM Patient's laboratory work-up is returned, no significant abnormalities, serial troponins and EKG are unremarkable, d-dimer was elevated, CT angios ordered, no acute abnormalities noted on CTA. No evidence of PE. Electrolytes stable, AST is 98 however this is notably consistent with baseline. TSH is elevated at 4.29 but she has had a gradual trend upwards however her free T4 still normal. Urinalysis does have nitrates, but no significant WBCs, symptoms appearing consistent with UTI, however out of an abundance of precaution we will administer dose of fosfomycin here. Urine drug screen negative aside for THC. On reassessment after 1-1/2 L the patient is feeling much better, heart rate has stabilized to the 80s, and she feels much better. She feels notably less anxious. I did review her previous records, upon review especially of the note from Dr. England within during 1 of her more recent visits, the decision was made to not anticoagulate her secondary to her chronic alcoholism, multiple falls, notable medical noncompliance. Patient has not followed up with her PCP in quite some time, we will recommend close follow-up on an outpatient basis. This time with an unremarkable work-up, vital signs stable, no more signs of anxiety, no other significant abnormalities do feel she can be safely discharged home. Discussed red flags which to return. I have extensively reviewed the treatment plan and discharge instructions with the patient. I have addressed all patient concerns at this time. The patient was made aware of what symptoms to monitor for that would warrant a return to the emergency department. Discussed the plan with the patient, they demonstrate verbal understanding and agreement with our assessment and plan at this time. EKG 22: 25 Rate 114, QTc 460, atrial fibrillation, no significant ST elevations or depression, no evidence of STEMI. EKG 1: 22 Rate 102, atrial fibrillation, no evidence of STEMI. FINDINGS: Pulmonary arteries: The pulmonary arteries are within normal limits without suspicious filling defect to suggest pulmonary embolism. Caliber of the main pulmonary artery is within normal limits Aorta: Unremarkable. No aortic aneurysm. No aortic dissection. Lungs: Centrilobular emphysema. Mild linear scarring in the inferior anterior right upper lobe, unchanged. Mild dependent changes. No consolidation. No suspicious pulmonary nodule. Stable focus of peripheral scarring in the right upper lobe (series 5, image 116), unchanged since 01/15/2019. Pleural space: Unremarkable. No pneumothorax. No pleural effusion. Heart: Unremarkable. No cardiomegaly. No pericardial effusion. Lymph nodes: Unremarkable. No enlarged lymph nodes. Bones/joints: Multilevel degenerative changes of the spine. No acute osseous findings. Soft tissues: Unremarkable. IMPRESSION: No acute findings. No pulmonary embolism or pulmonary consolidation. Centrilobular emphysema. Thank you for allowing us to participate in the care of your patient. Dictated and Authenticated by: Alka Hernandez MD 05/12/2019 12:30 AM Eastern Time ([place] & [place]) HPI General Date/Time Provider Initiated Documentation: 05/11/19 22:14 . HPI Narrative: 59-year-old female with a past medical history of atrial fibrillation, not on anticoagulation except for what appears to be daily aspirin, who does take Cardizem 240 mg daily, presents today for anxiety. She has a history of anxiety attacks, and states that over the last few months she has been having notable increase in her anxiety. Over the last few weeks this is worsened and definitely increased over the last 2 days. She has been taking at home benzodiazepines, but this is not been medicating her symptoms. She does not know what she feels anxious about, but she states that she feels generalized palpitations, small amount of chest pain, no pleuritic chest pain, and a feeling of unease. She denies any tearing or ripping sensation in her chest. She denies any history of PE dissection or aneurysm. Denies PE risk factors such as recent long car rides, immobilization, recent surgery, prior history of DVT or PE, family history of PE or DVT, morbid obesity, exogenous estrogen and smoking, hemoptysis, history of cancer. She denies any history of personal cardiac disease but she does smoke. She states that currently her symptoms feel very similar to previous anxiety attacks. She denies IV or illicit drug use. No other complaints at this time. Related Data Home Medications Medication Instructions Recorded Confirmed aspirin 81 mg PO DAILY #30 tab 04/18/19 05/11/19 cyanocobalamin (vitamin B-12) 1,000 mcg PO DAILY #30 tab 04/18/19 05/11/19 [Vitamin B-12] folic acid 1 mg PO DAILY #30 tab 04/18/19 05/11/19 magnesium oxide 400 mg PO DAILY #30 tab 04/18/19 05/11/19 multivitamin [Multiple Vitamins] 1 tab PO DAILY #30 tab 04/18/19 05/11/19 nicotine 21 mg TRANSDERMAL DAILY #30 ea 04/18/19 05/11/19 thiamine mononitrate (vit B1) 100 mg PO DAILY #30 tab 04/18/19 05/11/19 [Vitamin B-1 (mononitrate)] diltiazem HCl [Cardizem CD] 240 mg PO DAILY #30 cap 04/24/19 05/11/19 Previous Rx's Medication Instructions Recorded aspirin 81 mg PO DAILY #30 tab 04/18/19 cyanocobalamin (vitamin B-12) 1,000 mcg PO DAILY #30 tab 04/18/19 [Vitamin B-12] folic acid 1 mg PO DAILY #30 tab 04/18/19 magnesium oxide 400 mg PO DAILY #30 tab 04/18/19 multivitamin [Multiple Vitamins] 1 tab PO DAILY #30 tab 04/18/19 nicotine 21 mg TRANSDERMAL DAILY #30 ea 04/18/19 thiamine mononitrate (vit B1) 100 mg PO DAILY #30 tab 04/18/19 [Vitamin B-1 (mononitrate)] diltiazem HCl [Cardizem CD] 240 mg PO DAILY #30 cap 04/24/19 Allergies Allergy/AdvReac Type Severity Reaction Status Date / Time No Known Allergies Allergy Unverified 05/11/19 22:19 General DANNY: 2 Review of Systems All systems reviewed & are unremarkable except as noted in HPI and below PFSH Social History Smoking/Tobacco Use Status: Current every day Tobacco Type: cigarettes Alcohol Intake: current Alcohol Intake frequency: 3 or more drinks per day Alcohol type: beer Drug use: Never Substance use type: does not use Details: pt reports beer today Household members: significant other Do you feel safe at home: Yes Do you feel safe in your relationship?: Yes Additional Social history: Lives with long-term boyfriend Stepan in [place]. Last work at [employer] but has not worked in years. 2 adult children, including daughter in [place] and son and 2 baby grandkids and [place] Exam Narrative Exam Narrative: 1.Const: Well-nourished, Well-developed, appearing stated age 2.Eyes: PERRL, no conjunctival injection, and symmetrical lids. 3.ENT: Atraumatic external nose and ears. Dry MM. Neck: Symmetric, trachea midline, No thyromegaly. 4.CVS: +S1/S2, No murmurs or gallops. Peripheral pulses 2+ and equal in all extremities. Brisk capillary refill in all extremities. Radial pulses +2 bilaterally. 5.RESP: Unlabored respiratory effort. Clear to auscultation bilaterally. No wheezes rales or rhonchi 6.GI: Soft, Nontender/Nondistended, No hepatosplenomegaly. No guarding or rebound. 7.MSK: Normocephalic/Atraumatic, Extremities w/o deformity or ttp No cyanosis or clubbing, Normal movement of all extremities 8.Skin: Warm, Dry. No rashes or lesions. 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 Sensation grossly intact, no focal neurologic deficits. 10.Psych: (AAO) x3. Appropriate mood and affect
[2019-05-11 22:40] LABS: Abs Immature Grans 0.02 k/cumm (0.0-0.09); Absolute Basophil Count 0.03 k/cumm (0.0-0.2); Absolute Eosinophil Count 0.04 k/cumm (0.0-0.7); Absolute Lymphocyte Count 1.35 k/cumm (1.2-3.4); Absolute Monocyte Count 0.66 k/cumm (0.11-0.7); Absolute Neutrophil Count 2.75 k/cumm (1.2-6.7); Basophils % 0.6; Eosinophils % 0.8; HCT 38.9 % (36.0-46.0); Immature Grans % 0.4 %; Lymphocytes % 27.8; Mean Corpuscular Hemoglobin 36.4 pg (27.0-33.0); Mean Platelet Volume 9.6 fL (8.0-11.0); Monocytes % 13.6; Neutrophils % 56.8; Platelet Count 186 x1000/uL (130-400); RBC 3.85 m/cumm (4.00-5.20); RBC Distribution Width 12.7 % (11.7-14.6); White Blood Cell Count 4.85 k/cumm (4.4-10.8)
[2019-05-11] MEDS: LORazepam 2 MG/ML VIAL 1 MG IVP (22:41)
[2019-05-11] MEDS: Normal Saline 1,000 ML 1000 ML IV (22:41)
[2019-05-11 23:04] LABS: INR 1.1 (0.9-1.1); PTT Activated 28.3 sec (21.0-31.4); Prothrombin Time 10.6 sec (9.3-11.0)
[2019-05-11 23:10] LABS: ALT 59 U/L (14-59); AST 98 U/L (15-37); Albumin 3.2 g/dL (3.4-5.0); Alkaline Phosphatase 129 U/L (46-116); Anion Gap 13.2 mmol/L (3-11); BUN 7 mg/dL (7-18); Bilirubin, Total 0.4 mg/dL (0.2-1.0); CO2 23.8 mmol/L (21.0-32.0); CREATININE 0.67 mg/dL (0.55-1.02); Calcium 8.7 mg/dL (8.5-10.1); Chloride 101 mmol/L (98-107); Glucose 96 mg/dL (74-106); Potassium 3.5 mmol/L (3.5-5.1); Sodium 138 mmol/L (136-145); TSH (W/Ref FT4) 4.29 uIU/mL (0.36-3.74); Total Protein 7.6 g/dL (6.4-8.2); Troponin I < 0.05 ng/Ml (<0.06)
[2019-05-11 23:12] LABS: D-Dimer 686 ng/mlFEU (<500)
[2019-05-11 23:26] LABS: FREE T4 0.84 ng/dL (0.76-1.46)
[2019-05-11 23:38] LABS: Bilirubin Negative (Negative); Blood Trace-intact (Negative); Clarity Clear (Clear); Glucose Negative (Negative); Ketones Negative (Negative); Leukocyte Esterase Trace (Negative); Nitrite Positive (Negative); Specific Gravity <= 1.005 (1.005-1.025); Urobilinogen 0.2 EU/dL (Up TO 0.2)
[2019-05-11 23:46] LABS: Bacteria Many HPF (Negative); C & S Indicated? Yes; Casts Negative LPF (Negative); Crystals Negative HPF (Negative); Epithelial Cells Rare HPF (Negative); Mucus Negative (Negative); RBC 0-2 HPF (0-2)
[2019-05-11 23:51] LABS: *AMPHETAMINES SCREEN URINE Negative (Negative); *BARBITURATES SCREEN URINE Negative (Negative); *BENZODIAZEPINES SCREEN URINE Negative (Negative); Cannabinoids THC POSITIVE (Negative); Cocaine Screen,Urine Negative (Negative); METHADONE URINE SCREEN Negative (Negative); OPIATES URINE SCREEN Negative (Negative)
[2019-05-11 23:53] LABS: Tricyclic Antidepressants Negative (Negative)
[2019-05-12] MEDS: Normal Saline Flush 10 ML SYR IVP (00:15)
[2019-05-12] MEDS: Omnipaque 350 MG/ML 100 ML BTL IJ (00:16)
[2019-05-12] MEDS: Normal Saline - Diluent 50 ML VIAL IV (00:16)
--- NOTE | 2019-05-12 00:30 | DI.VRAD_ITS ---
PROCEDURE INFORMATION: Exam: CT Angiography Chest With Contrast Exam date and time: 05/11/2019 11:17 PM Age: 59 years old Clinical indication: Other: Elevted d dimer; Patient HX: Elevated d dimer, tachycardic, eval for pe TECHNIQUE: Imaging protocol: Computed tomographic angiography of the chest with intravenous contrast. 3D rendering: MIP and/or 3D reconstructed images were created by the technologist. Radiation optimization: All CT scans at this facility use at least one of these dose optimization techniques: automated exposure control; mA and/or kV adjustment per patient size (includes targeted exams where dose is matched to clinical indication); or iterative reconstruction. Contrast material: [id number]; Contrast volume: 66 ml; Contrast route: IV RAC 20; COMPARISON: CT CHEST PE CTA 01/15/2019 10:57 PM FINDINGS: Pulmonary arteries: The pulmonary arteries are within normal limits without suspicious filling defect to suggest pulmonary embolism. Caliber of the main pulmonary artery is within normal limits Aorta: Unremarkable. No aortic aneurysm. No aortic dissection. Lungs: Centrilobular emphysema. Mild linear scarring in the inferior anterior right upper lobe, unchanged. Mild dependent changes. No consolidation. No suspicious pulmonary nodule. Stable focus of peripheral scarring in the right upper lobe (series 5, image 116), unchanged since 01/15/2019. Pleural space: Unremarkable. No pneumothorax. No pleural effusion. Heart: Unremarkable. No cardiomegaly. No pericardial effusion. Lymph nodes: Unremarkable. No enlarged lymph nodes. Bones/joints: Multilevel degenerative changes of the spine. No acute osseous findings. Soft tissues: Unremarkable. IMPRESSION: No acute findings. No pulmonary embolism or pulmonary consolidation. Centrilobular emphysema. Dictated and Authenticated by: Alka Hernandez MD. Ordering:KEM Colin MD
[2019-05-12] MEDS: Normal Saline 1,000 ML 1000 ML IV (01:00)
[2019-05-12 02:05] VITALS: BP 109/77; PULSE 114; RESP 16; O2SAT 93
[2019-05-12 02:12] LABS: Troponin I < 0.05 ng/Ml (<0.06)
--- NOTE | 2019-05-12 03:09 | NUR.NOTE ---
Nursing Note: Referral faxed for follow up with PCP. Yu Ramos
[2019-05-12] MEDS: Fosfomycin Tromethamine 3 GM PACKET PO (04:20)
[2019-05-12 04:40] VITALS: BP 101/62; PULSE 92; RESP 16; O2SAT 94
== END 2019-05-12 04:40 | disposition home or self-care (01) ==
PROVIDERS: Emergency Provider Student in an Organized Health Care Education/Training Program; PCP Nurse Practitioner
DX: F10.10 Alcohol abuse, uncomplicated (principal); F41.9 Anxiety disorder, unspecified; I48.20 Chronic atrial fibrillation, unspecified; Z91.19 Patient's noncompliance with other medical treatment and regimen
CPT/HCPCS: 36415; 71275; 80053; 80307; 87077; 93005; 96361; 96374; 99285; 81003; 81015; 84439; 84443; 84484; 85025; 85379; 85610; 85730; 87086; 87186; 93010; 99284; J2060; J3490

== ENCOUNTER 2019-05-16 20:12 | Emergency (ER) | payer OTHER, SELFPAY ==
[2019-05-16] VITALS (10 sets, daily range): BP systolic 101–111; BP diastolic 73–77; PULSE 83–98; RESP 14–25; TEMP 36.6; O2SAT 95–100
--- NOTE | 2019-05-16 20:15 | W.ED.GENAD ---
Discharge Plan Disposition Patient Disposition: HOME Condition: Stable Discharge Details Chief Complaint: Chest Pain Clinical Impression: Chest pain, Elevated brain natriuretic peptide (BNP) level Primary Care Provider: Amarilys Barrera ED Provider: Rashmi Lopez Home Meds and New Rx's Prescriptions: Continued multivitamin [Multiple Vitamins] Tablet 1 tab PO DAILY Qty: 30 RF: 3 aspirin 81 mg Tablet,Delayed Release (Dr/Ec) 81 mg PO DAILY Qty: 30 RF: 3 magnesium oxide 400 mg (241.3 mg magnesium) tablet 400 mg PO DAILY Qty: 30 RF: 3 cyanocobalamin (vitamin B-12) [Vitamin B-12] 500 mcg Tablet 1,000 mcg PO DAILY Qty: 30 RF: 3 nicotine 21 mg/24 hr Patch 24 Hour 21 mg transdermal DAILY Qty: 30 RF: 3 folic acid 1 mg Tablet 1 mg PO DAILY Qty: 30 RF: 3 thiamine mononitrate (vit B1) [Vitamin B-1 (mononitrate)] 100 mg Tablet 100 mg PO DAILY Qty: 30 RF: 3 diltiazem HCl [Cardizem CD] 240 mg capsule,extended release 24hr 240 mg PO DAILY Qty: 30 RF: 1 Discharge Instructions Instructions: Chest Pain (ED) Additional Instructions: Please keep your scheduled appointment tomorrow. Follow up with primary care provider in 3-5 days. Return to ED sooner if any worsening or concerns. Referrals: Amarilys Barrera, [facility] [Primary Care Provider] - Medical Decision Making 59-year-old female presents with chest pressure which is been intermittent throughout the whole day associated with anxiety. Patient was just seen 4 days ago and had a complete work-up including d-dimer and CT of her chest which was negative for PE. She also reports some lower extremity swelling worse on the right. Denies fever, N/V/D or recent travel. Labs ordered including BNP, magnesium, serial troponins, CBC ,and CMP. Did not order any imaging at this time due to recent chest CT 4 days ago. Patient was given 4 baby aspirin's in ambulance prior to arrival. Patient feels better, Lorazepam 0.5 mg PO ordered. Patient has a PCP appointment tomorrow she was encouraged to keep this appointment. No imaging was ordered this visit due to recent CT chest. Second troponin also counseled patient states that her chest pain is now gone. She is hemodynamically stable and I feel like it is safe for her to be discharged home at this time. Initial troponin is negative CBC and CMP are largely unchanged from her previous labs. She does have an elevated BNP of 600 discussed this with patient and instructed to discuss this with her primary care, verbalized understanding. Differential diagnosis includes congestive heart failure, DVT, coronary artery disease, anxiety. Medical Records Medical records reviewed: Yes I reviewed the patient's medical records. Lab Data Lab results reviewed: Yes I reviewed the patient's lab results. ECG Data Attestation: I personally reviewed and interpreted this ECG (s) as follows: (Normal sinus rhythm rate of 95 MT 210 QT/QTc 368/463 reviewed old no change, no ectopy no ST elevation.) Prior ECG tracings: available for review HPI General Mode of arrival: EMS. Date/Time Provider Initiated Documentation: 05/16/19 20:15. Limitations to Documentation: no limitations. HPI Narrative: 59-year-old female presents with chest pressure which is been intermittent throughout the whole day associated with anxiety. Patient was just seen 4 days ago and had a complete work-up including d-dimer and CT of her chest which was negative for PE. She also reports some lower extremity swelling worse on the right. Denies fever, N/V/D or recent travel. Related Data Home Medications Medication Instructions Recorded Confirmed aspirin 81 mg PO DAILY #30 tab 04/18/19 05/16/19 cyanocobalamin (vitamin B-12) 1,000 mcg PO DAILY #30 tab 04/18/19 05/16/19 [Vitamin B-12] folic acid 1 mg PO DAILY #30 tab 04/18/19 05/16/19 magnesium oxide 400 mg PO DAILY #30 tab 04/18/19 05/16/19 multivitamin [Multiple Vitamins] 1 tab PO DAILY #30 tab 04/18/19 05/16/19 nicotine 21 mg TRANSDERMAL DAILY #30 ea 04/18/19 05/16/19 thiamine mononitrate (vit B1) 100 mg PO DAILY #30 tab 04/18/19 05/16/19 [Vitamin B-1 (mononitrate)] diltiazem HCl [Cardizem CD] 240 mg PO DAILY #30 cap 04/24/19 05/16/19 Previous Rx's Medication Instructions Recorded aspirin 81 mg PO DAILY #30 tab 04/18/19 cyanocobalamin (vitamin B-12) 1,000 mcg PO DAILY #30 tab 04/18/19 [Vitamin B-12] folic acid 1 mg PO DAILY #30 tab 04/18/19 magnesium oxide 400 mg PO DAILY #30 tab 04/18/19 multivitamin [Multiple Vitamins] 1 tab PO DAILY #30 tab 04/18/19 nicotine 21 mg TRANSDERMAL DAILY #30 ea 04/18/19 thiamine mononitrate (vit B1) 100 mg PO DAILY #30 tab 04/18/19 [Vitamin B-1 (mononitrate)] diltiazem HCl [Cardizem CD] 240 mg PO DAILY #30 cap 04/24/19 Allergies Allergy/AdvReac Type Severity Reaction Status Date / Time No Known Allergies Allergy Unverified 05/11/19 22:19 General DANNY: 2 Review of Systems Constitutional Constitutional: Reports as per HPI, Denies chills and Denies fever(s) Cardiovascular Cardiovascular: Reports chest pain, Reports leg edema and Denies dyspnea Respiratory Respiratory: Denies chest congestion, Denies cough, Denies hemoptysis, Denies dyspnea, Denies stridor and Denies wheezing Gastrointestinal Gastrointestinal: Reports as per HPI, Denies diarrhea, Denies loose stools, Denies nausea and Denies vomiting Allergic/Immunologic Allergic/Immunologic: Denies wheezing [facility] Medical History Alcohol abuse (Chronic) Anxiety and depression (Inactive 08/06/14) Atrial fibrillation with rapid ventricular response (Inactive) Opiate addiction (Inactive 08/06/14) in recovery. weaned off suboxone through [facility] 05/05/14 Pulmonary nodules (Inactive) SAH (subarachnoid hemorrhage) (Inactive) Tobacco abuse (Chronic 07/07/17) Surgical History bunionectomy (Inactive) lamontangen a few years ago 2005ish History of bilateral tubal ligation (Acute) Family History Mother Diabetes Essential hypertension Personal history of malignant neoplasm lung, breast CA Father No problems noted. Sister Essential hypertension Sister No problems noted. Brother No problems noted. Maternal Aunt Personal history of malignant neoplasm breast Social History Smoking/Tobacco Use Status: Current every day Tobacco Type: cigarettes Alcohol Intake: current Alcohol Intake frequency: 3 or more drinks per day Alcohol type: beer Drug use: Never Substance use type: does not use Details: pt reports beer today Household members: significant other Do you feel safe at home: Yes Do you feel safe in your relationship?: Yes Additional Social history: Lives with long-term boyfriend Stepan in [place]. Last work at [employer] but has not worked in years. 2 adult children, including daughter in [place] and son and 2 baby grandkids and [place] Exam Narrative Exam Narrative: Constitutional: Allert and oriented x3. Appears stated age. Normal body habitus. Head: Normocephalic, no trauma. Eyes: Pupils PERRLA, Red reflex noted, EOM's intact. Eyelids symmetrical withour lesions, discharge, or swelling. ENT: Bilateral TM's WNL, External ear normal to inspection, no mastoid TTP, swelling, or erythema, Nasal turbinates WNL, no nasal discharge. Normal dentition, Posterior pharynx WNL, no exudate. Chest: RRR, Normal S1, S2, distal pulses intact. Resp: Lungs clear to auscultation bilaterally, no wheezes, rales, or rhonchi. Musculoskeletal: Normal gait, 5/5 strength to all four extremities. 2 + non pitting edema noted to RLE and trace edema noted to LLE. Skin: No suspicious rashes or lesions. Capillary refill less than 2 sec. Neurologic: Cranial nerves II-XII intact. Alert and oriented x 3. DTR's intact. Hematologic/Lymphatic: No ecchymosis, no lymphadenopathy.
[2019-05-16 20:55] LABS: Abs Immature Grans 0.02 k/cumm (0.0-0.09); Absolute Basophil Count 0.05 k/cumm (0.0-0.2); Absolute Eosinophil Count 0.04 k/cumm (0.0-0.7); Absolute Lymphocyte Count 1.09 k/cumm (1.2-3.4); Absolute Monocyte Count 0.93 k/cumm (0.11-0.7); Absolute Neutrophil Count 2.86 k/cumm (1.2-6.7); Eosinophils % 0.8; HCT 37.7 % (36.0-46.0); HGB 13.4 g/dL (12.0-15.5); Immature Grans % 0.4 %; Lymphocytes % 21.8; Mean Corp. HGB Concentration 35.5 g/dL (32.0-36.0); Mean Corpuscular Hemoglobin 36.3 pg (27.0-33.0); Mean Corpuscular Volume 102.2 fL (80-95); Mean Platelet Volume 9.4 fL (8.0-11.0); Monocytes % 18.6; Neutrophils % 57.4; Platelet Count 213 x1000/uL (130-400); RBC 3.69 m/cumm (4.00-5.20); RBC Distribution Width 13.2 % (11.7-14.6); White Blood Cell Count 4.99 k/cumm (4.4-10.8)
[2019-05-16 21:11] LABS: ALT 78 U/L (14-59); AST 126 U/L (15-37); Albumin 3.4 g/dL (3.4-5.0); Alkaline Phosphatase 155 U/L (46-116); Anion Gap 15.4 mmol/L (3-11); BUN 5 mg/dL (7-18); Bilirubin, Total 0.5 mg/dL (0.2-1.0); CO2 21.6 mmol/L (21.0-32.0); CREATININE 0.65 mg/dL (0.55-1.02); Calcium 8.8 mg/dL (8.5-10.1); Chloride 105 mmol/L (98-107); Glucose 88 mg/dL (74-106); Potassium 3.6 mmol/L (3.5-5.1); Sodium 142 mmol/L (136-145); Total Protein 7.6 g/dL (6.4-8.2)
[2019-05-16 21:20] LABS: Magnesium 1.7 mg/dL (1.8-2.4); NT-proBNP 697 pg/mL (<300)
[2019-05-16] MEDS: LORazepam 0.5 MG TAB PO (21:22)
[2019-05-16 21:23] LABS: Troponin I < 0.05 ng/Ml (<0.06)
== END 2019-05-16 21:49 | disposition home or self-care (01) ==
LOC: ER 21:53
PROVIDERS: Emergency Provider Registered Nurse Emergency; PCP Nurse Practitioner
DX: R07.89 Other chest pain (principal); R79.89 Other specified abnormal findings of blood chemistry
CPT/HCPCS: 36415; 80053; 99283; 83735; 83880; 84484; 85025

== ENCOUNTER 2019-05-28 22:35 | Emergency (ER) | payer OTHER, SELFPAY ==
[2019-05-28 22:12] VITALS: BP 107/74; PULSE 83; RESP 18; TEMP 36.9; O2SAT 95
--- NOTE | 2019-05-28 22:30 | DI.RAD_ITS ---
EXAM: XR CHEST 2V PA LATERAL CLINICAL HISTORY: cough TECHNIQUE: 2D digital imaging was performed. COMPARISON: XR CHEST 2V PA LATERAL from 03/21/2019 XR CHEST 2V PA LATERAL from 04/17/2019 XR PORTABLE CHEST AP from 04/23/2019 CT CHEST PE CTA from 05/12/2019 FINDINGS: MEDIASTINUM: Normal. HEART: Normal. PULMONARY VASCULATURE: Normal. LUNGS: Clear. PLEURAL SPACE: No pleural effusion or pneumothorax. BONE:Normal. OTHER FINDINGS:Normal. IMPRESSION: No acute pulmonary findings. DATA REPOSITORY: RADIATION DOSE DELIVERED:
[2019-05-28 22:37] VITALS: BP 94/67; PULSE 84; PULSE 86; RESP 14; O2SAT 95
[2019-05-28 22:38] VITALS: PULSE 90; RESP 12; O2SAT 96
[2019-05-28 22:40] VITALS: PULSE 86; RESP 23; O2SAT 93
[2019-05-28 22:45] VITALS: BP 106/73; PULSE 84; RESP 23; O2SAT 90
[2019-05-28 22:48] LABS: Absolute Basophil Count 0.05 k/cumm (0.0-0.2); Absolute Eosinophil Count 0.07 k/cumm (0.0-0.7); Absolute Lymphocyte Count 1.03 k/cumm (1.2-3.4); Absolute Monocyte Count 0.75 k/cumm (0.11-0.7); Absolute Neutrophil Count 2.48 k/cumm (1.2-6.7); Basophils % 1.1; Eosinophils % 1.6; HCT 36.5 % (36.0-46.0); HGB 12.8 g/dL (12.0-15.5); Lymphocytes % 23.5; Mean Corp. HGB Concentration 35.1 g/dL (32.0-36.0); Mean Corpuscular Hemoglobin 36.4 pg (27.0-33.0); Mean Corpuscular Volume 103.7 fL (80-95); Mean Platelet Volume 9.2 fL (8.0-11.0); Monocytes % 17.1; Neutrophils % 56.7; Platelet Count 219 x1000/uL (130-400); RBC 3.52 m/cumm (4.00-5.20); RBC Distribution Width 13.1 % (11.7-14.6); White Blood Cell Count 4.38 k/cumm (4.4-10.8)
[2019-05-28 22:50] VITALS: PULSE 84; RESP 14; O2SAT 92
--- NOTE | 2019-05-28 23:03 | W.ED.GENAD ---
Discharge Plan Disposition Patient Disposition: HOME Condition: Stable Discharge Details Chief Complaint: Palpitatns Clinical Impression: Anxiety, Alcohol abuse Primary Care Provider: Amarilys Barrera ED Provider: Alka Bills Home Meds and New Rx's Prescriptions: No Action multivitamin [Multiple Vitamins] Tablet 1 tab PO DAILY Qty: 30 RF: 3 aspirin 81 mg Tablet,Delayed Release (Dr/Ec) 81 mg PO DAILY Qty: 30 RF: 3 magnesium oxide 400 mg (241.3 mg magnesium) tablet 400 mg PO DAILY Qty: 30 RF: 3 cyanocobalamin (vitamin B-12) [Vitamin B-12] 500 mcg Tablet 1,000 mcg PO DAILY Qty: 30 RF: 3 folic acid 1 mg Tablet 1 mg PO DAILY Qty: 30 RF: 3 thiamine mononitrate (vit B1) [Vitamin B-1 (mononitrate)] 100 mg Tablet 100 mg PO DAILY Qty: 30 RF: 3 diltiazem HCl [Cardizem CD] 240 mg capsule,extended release 24hr 240 mg PO DAILY Qty: 30 RF: 1 Discharge Instructions Instructions: Abuse of Alcohol (ED), Anxiety (ED) Additional Instructions: Please follow-up promptly with your primary care doctor as planned. Rest activities as tolerated. Be sure to drink plenty of water. Please stop drinking alcohol or consider detox as discussed. Your evaluation today is reassuring. Follow-up with outpatient power and recovery superintendent. Return to the emergency room for any worsening, concerning or alarming symptoms sooner if needed. Medical Decision Making This is a 59-year-old patient presenting to the emergency room today for complaints of anxiety. Patient reports she is feeling extremely anxious over the last several weeks. Patient reports a history of longstanding anxiety for which this does seem similar. Patient does report anxiety near on panic attacks. Patient reports she had several episodes of anxiety today which she describes as chest heaviness. She denies active chest pain or radicular chest pain. Denies any neck arm or back pain associated. Patient denies any dizziness or lightheadedness associated. Denies any associated diaphoresis. Patient does report this is typical of what she has experienced his anxiety in the past however she was having difficulty sleeping this evening. Patient denies any associated difficulty breathing or shortness of breath. She does report a longstanding cough but is a smoker. Patient does consume alcohol daily approximately 4 tall boys a day. Patient has been in rehab for alcohol abuse approximately 6 times in the past which were transiently helpful. Patient reports she takes no medications for anxiety she just breathes through and settles herself down. She reports approximately 6 episodes of chest pressure and anxiety today which then do fully relieve. Patient does have an appointment with her primary care doctor for this in approximately 1 week. Patient denies any abdominal pain or vomiting. She does report she typically does wake with mild nausea and anxiety in the mornings. Patient reports she drinks adequate amounts of water. Patient is ultimately seeking some medication management of her anxiety this evening to help assist with her sleep. Patient has been to counselors in the past but has not been using any counselor recently. Patient has worked with power and recovery superintendent is in the past but has not been working with any recently. On physical exam patient is somewhat unkempt does smell of alcohol mild dry mucous membranes. Patient has diffuse wheezing on breath sounds however somewhat worse on the right than the left. No associated rhonchi or rales. Patient is no significant increase in respiratory effort at this time. Patient has no abdominal pain on exam. Lower extremity exam reveals mild edema in the right lower extremity, 1+ asymmetrical compared to the left. When asked patient reports she has noticed this recently but is unsure as to how long swelling has been present. She no swelling has been present for at least 1 week. Denies any injury or trauma to lower leg. patient's vital signs reviewed and are stable IV placed and labs obtained. Initial EKG reveals a heart rate of 82, QTc 446. Sinus rhythm low voltage in the limb leads. No obvious ST elevation CA noted. This was reviewed with Cristine Marquis, when compared to previous of 05/16/2019 there is no significant change. Patient did have a previous CT angiogram concern of PE due to complaints of chest pain on 05/11/2019 which was unremarkable for pulmonary embolism at that time. Asymmetric right lower extremity swelling has been noticed on previous visits per her medical chart. Labs do reveal an alcohol this evening of 157. Patient has electrolytes within normal limits. Very mild elevation of anion gap at 12.4 very mild leukopenia, platelets normal. Troponin normal. At this time patient was offered an Ativan for symptomatic relief. Patient reports Ativan was quite helpful. She has no persistent chest pressure at this time. Patient feels appropriate for discharge home at this time. Given right lower leg swelling will order outpatient ultrasound of her lower extremity. I have a very low suspicion for pulmonary embolism at this time given her recent CT angiogram within the last few weeks which is unremarkable for PE is well as her current vital signs which revealed no associated tachycardia nor does patient complained of any shortness of breath. She does report this is typical of her presentation of anxiety and panic attacks. I did reach out to mental health to try to expedite outpatient management and reevaluation of her anxiety. They feel patient has an appointment with her PCP will have mental health services in their office and they recommend following up as scheduled appointment in 1 week. Patient is not suicidal or homicidal however they did speak with the patient over the phone and they do feel outpatient management is most appropriate unless patient becomes more acute in which case they recommended she return to the emergency room. Patient agrees with this plan of care Patient feels appropriate for discharge home. She does not desire any additional testing this evening. Of note patient was previously offered IV fluids and she declined requesting only to take p.o. fluids by mouth and reports she has been drinking adequate water today. The patient was stable and requested discharge. Prior to discharge, my usual and customary return precautions were reviewed with the patient - this included follow-up instructions and reasons to return to the Emergency Department if conditions worsens, does not improve as expected, or other new concerns arise. HPI General Date/Time Provider Initiated Documentation: 05/28/19 22:44. HPI Narrative: Is a 59-year-old patient presenting to the emergency room this evening for complaints of anxiety. Patient reports chest heaviness intermittently throughout the day. Patient reports she has experienced these symptoms for the last several weeks. Patient reports the symptoms are quite familiar to her and she does report a history of anxiety attacks. Patient reports anxiety attacks border on the cusp of panic attacks. Patient reports she experiences chest heaviness during these episodes sometimes associated with shortness of breath during the episode. Patient reports he had approximately 5-6 episodes today lasting a few minutes each. Patient was unable to get to sleep tonight as she was feeling extremely anxious, she does report sensation of her heart racing occasionally during episodes. Patient reports this as chest heaviness but denies chest pain. Denies any radicular symptoms. Denies any associated diaphoresis. Patient reports she does drink daily, she does think of cutting down. Patient reports she drinks 4 tall boy beers today. Patient does report she has been to rehab multiple times for this reason. At this time patient is predominately seeking some medication to minimize her anxiety. Patient does not work with outpatient counselors or mental health. She denies suicidality and homicidality. Patient denies abdominal pain. Patient does report she typically wakes with nausea in the morning and does typically feel quite anxious in the morning. Patient does report a chronic cough, intermittently productive. She does smoke. Related Data Home Medications Medication Instructions Recorded Confirmed aspirin 81 mg PO DAILY #30 tab 04/18/19 05/28/19 cyanocobalamin (vitamin B-12) 1,000 mcg PO DAILY #30 tab 04/18/19 05/28/19 [Vitamin B-12] folic acid 1 mg PO DAILY #30 tab 04/18/19 05/28/19 magnesium oxide 400 mg PO DAILY #30 tab 04/18/19 05/28/19 multivitamin [Multiple Vitamins] 1 tab PO DAILY #30 tab 04/18/19 05/28/19 thiamine mononitrate (vit B1) 100 mg PO DAILY #30 tab 04/18/19 05/28/19 [Vitamin B-1 (mononitrate)] diltiazem HCl [Cardizem CD] 240 mg PO DAILY #30 cap 04/24/19 05/28/19 Previous Rx's Medication Instructions Recorded aspirin 81 mg PO DAILY #30 tab 04/18/19 cyanocobalamin (vitamin B-12) 1,000 mcg PO DAILY #30 tab 04/18/19 [Vitamin B-12] folic acid 1 mg PO DAILY #30 tab 04/18/19 magnesium oxide 400 mg PO DAILY #30 tab 04/18/19 multivitamin [Multiple Vitamins] 1 tab PO DAILY #30 tab 04/18/19 thiamine mononitrate (vit B1) 100 mg PO DAILY #30 tab 04/18/19 [Vitamin B-1 (mononitrate)] diltiazem HCl [Cardizem CD] 240 mg PO DAILY #30 cap 04/24/19 Allergies Allergy/AdvReac Type Severity Reaction Status Date / Time No Known Allergies Allergy Unverified 05/28/19 22:18 General Stated Complaint: Palpitatns DANNY: 3 Review of Systems All systems reviewed & are unremarkable except as noted in HPI and below Constitutional Constitutional: Denies chills, Denies fatigue, Denies fever(s), Denies headache(s), Denies malaise, Denies poor appetite and Denies weakness ENT Ears, Nose, Mouth, and Throat: Denies vertigo, Denies dizziness, Denies headache(s), Denies nasal congestion and Denies sore throat Cardiovascular Cardiovascular: Reports chest pain (Denies chest pain described as chest pressure or heaviness in her chest.), Denies diaphoresis, Denies syncope, Denies leg edema, Denies lightheadedness, Denies radiating jaw, neck or arm pain, Reports palpitations and Denies dyspnea Respiratory Respiratory: Denies cough, Denies dyspnea and Denies wheezing Gastrointestinal Gastrointestinal: Denies abdominal pain, Denies diarrhea, Reports nausea and Denies vomiting Genitourinary Genitourinary: Denies urinary urgency Musculoskeletal Musculoskeletal: Denies tingling Neurologic Neurologic: Denies confusion, Denies vertigo, Denies dizziness, Denies syncope, Denies headache(s), Denies tingling and Denies weakness Psychiatric Psychiatric: Reports anxiety, Denies confusion, Denies irritability, Denies mood swings, Reports panic attacks, Denies homicidal ideation and Denies suicidal ideation Endocrine Endocrine: Denies fatigue and Reports palpitations Allergic/Immunologic Allergic/Immunologic: Denies wheezing [facility] Medical History Alcohol abuse (Chronic) Anxiety and depression (Inactive 08/06/14) Atrial fibrillation with rapid ventricular response (Inactive) Opiate addiction (Inactive 08/06/14) in recovery. weaned off suboxone through [facility] 05/05/14 Pulmonary nodules (Inactive) SAH (subarachnoid hemorrhage) (Inactive) Tobacco abuse (Chronic 07/07/17) Social History Smoking/Tobacco Use Status: Current every day Tobacco Type: cigarettes Alcohol Intake: current Alcohol Intake frequency: 3 or more drinks per day Alcohol type: beer Drug use: Never Substance use type: does not use Details: pt reports beer today Household members: significant other Do you feel safe at home: Yes Do you feel safe in your relationship?: Yes Additional Social history: Lives with long-term boyfriend Stepan in [place]. Last work at [employer] but has not worked in years. 2 adult children, including daughter in [place] and son and 2 baby grandkids and [place] Exam Narrative Exam Narrative: CONST: Healthy appearing patient, in no acute distress. Mildly dry mucous membranes. Alert and oriented. HENMT: Head nomocephalic, normal to inspection. Atraumatic. Hearing grossly normal. Mild pharyngeal erythema. EYES: General normal appearance. Alignment normal. Eyelids normal. Conjunctiva normal. NECK: Normal visual inspection. FROM. Trachea midline. No Midline tenderness. CHEST: Normal insepection of the chest. RESP: Normal respiratory effort. Speaking full sentences. No cough. No audible wheezing. No retractions. Breath sounds clear, full and equal bilaterally. Wheezing noted on the right diffusely, mildly on the left somewhat asymmetric. No obvious rhonchi or rales CARDIO: No JVD. No murmur, regular rate and rhythm MUSCULOSKELETAL: Normal Gait. FROM of all extremities. Mild edema noted in the right lower leg, 1+ the distal pretibial huynh and ankle. No calf pain with palpation, no palpable bony tenderness in the lower extremity. No erythema. No significant edema in the left leg SKIN: Normal. Dry. No rashes. NEURO: Alert and awake. Speech clear. PSYCH: Normal affect. Cooperative. Course Vital Signs Vital signs: Vital Signs Temperature 36.9 C 05/28/19 22:12 Pulse 83 05/28/19 22:12 Respiratory Rate 18 05/28/19 22:12 Blood Pressure 107/74 05/28/19 22:12 Pulse Oximetry 95 05/28/19 22:12 Temperature 36.9 C 05/28/19 22:12 Temperature Source Skin 05/28/19 22:12 Pulse 83 05/28/19 22:12 Respiratory Rate 18 05/28/19 22:12 Respiratory Effort Non-Labored 05/28/19 22:21 Blood Pressure 107/74 05/28/19 22:12 Pulse Oximetry 95 05/28/19 22:12 End Tidal Co2 5 05/28/19 22:12 Lab/Test Results Lab/Test Results: Laboratory Tests Range/Units 05/28/19 05/28/19 22:40 22:40 WBC (4.4-10.8) k/cumm 4.38 L RBC (4.00-5.20) m/cumm 3.52 L Hgb (12.0-15.5) g/dL 12.8 Hct (36.0-46.0) % 36.5 MCV (80-95) fL 103.7 H MCH (27.0-33.0) pg 36.4 H MCHC (32.0-36.0) g/dL 35.1 RDW (11.7-14.6) % 13.1 Plt Count (130-400) x1000/uL 219 MPV (8.0-11.0) fL 9.2 Immature Gran % % 0.0 Neutrophils % 56.7 Lymphocytes % 23.5 Monocytes % 17.1 Eosinophils % 1.6 Basophils % 1.1 Absolute Neutrophils (1.2-6.7) k/cumm 2.48 Absolute Lymphocytes (1.2-3.4) k/cumm 1.03 L Absolute Monocytes (0.11-0.7) k/cumm 0.75 H Absolute Eosinophils (0.0-0.7) k/cumm 0.07 Absolute Basophils (0.0-0.2) k/cumm 0.05 Ethyl Alcohol (<3) mg/dL 157.0
--- NOTE | 2019-05-28 23:10 | DI.VRAD_ITS ---
PROCEDURE INFORMATION: Exam: XR Chest, 2 Views Exam date and time: 05/28/2019 11:00 PM Age: 59 years old Clinical indication: Cough TECHNIQUE: Imaging protocol: XR of the chest Views: 2 views. COMPARISON: CR XR PORTABLE CHEST AP 23/04/2019 21:56 FINDINGS: Lungs: Unremarkable. No consolidation. Pleural space: Unremarkable. No pleural effusion. No pneumothorax. Heart/Mediastinum: Unremarkable. No cardiomegaly. Bones/joints: EKG wires overlie the chest. Multilevel degenerative changes of the thoracic spine. Soft tissues: Hazy density over the right and left lower chest on the PA view not appreciated on the lateral view and likely represents artifact from breast parenchymal tissue similar to prior study April 17, 2019. IMPRESSION: No acute cardiopulmonary findings. Dictated and Authenticated by: Iqra Cardona MD. Ordering:SHERLY Rucker MD
[2019-05-28 23:15] LABS: ALT 45 U/L (14-59); AST 62 U/L (15-37); Albumin 3.3 g/dL (3.4-5.0); Alkaline Phosphatase 100 U/L (46-116); Anion Gap 12.4 mmol/L (3-11); BUN 9 mg/dL (7-18); Bilirubin, Total 0.3 mg/dL (0.2-1.0); CO2 23.6 mmol/L (21.0-32.0); CREATININE 0.88 mg/dL (0.55-1.02); Calcium 8.9 mg/dL (8.5-10.1); Chloride 105 mmol/L (98-107); Glucose 98 mg/dL (74-106); Magnesium 1.8 mg/dL (1.8-2.4); Potassium 3.9 mmol/L (3.5-5.1); Sodium 141 mmol/L (136-145); Total Protein 7.5 g/dL (6.4-8.2)
[2019-05-28 23:19] LABS: Troponin I < 0.05 ng/Ml (<0.06)
[2019-05-28] MEDS: LORazepam 1 MG TAB PO (23:46)
[2019-05-29 01:22] VITALS: BP 112/69; PULSE 76; RESP 16; O2SAT 94
== END 2019-05-29 01:49 | disposition home or self-care (01) ==
PROVIDERS: Emergency Provider Physician Assistant; PCP Nurse Practitioner
DX: F41.9 Anxiety disorder, unspecified (principal); F10.20 Alcohol dependence, uncomplicated; F17.210 Nicotine dependence, cigarettes, uncomplicated; R60.0 Localized edema; Y90.6 Blood alcohol level of 120-199 mg/100 ml
CPT/HCPCS: 80053; 93005; 99284; 71046; 80320; 83735; 84484; 85025; 93010; 99283

== ENCOUNTER 2019-07-23 21:41 | Emergency (ER) | payer OTHER, SELFPAY ==
[2019-07-23] VITALS (21 sets, daily range): BP systolic 91–138; BP diastolic 56–119; PULSE 49–85; RESP 13–28; TEMP 36.6; O2SAT 89–99
--- NOTE | 2019-07-23 21:45 | DI.RAD_ITS ---
EXAM: XR PORTABLE CHEST AP CHEST PAIN, ANXIETY, PALPITATIONS: TECHNIQUE: 2D digital imaging was performed. COMPARISON: CR,XR XR CHEST 2V PA LATERAL from 05/28/2019 FINDINGS: LUNGS: Clear. No pleural abnormality seen. HEART: Mildly enlarged, unchanged. Mildly ectatic aorta. EKG leads overlie the chest. IMPRESSION: No acute pulmonary findings. DATA REPOSITORY: RADIATION DOSE DELIVERED:
--- NOTE | 2019-07-23 21:47 | ED.GENADUL_ITS ---
Discharge Plan Disposition Patient Disposition: HOME Condition: Good Discharge Details Chief Complaint: Anxiety Clinical Impression: Anxiety, Alcohol abuse, Transaminitis Primary Care Provider: Amarilys Barrera ED Provider: Douglas Farfan Home Meds and New Rx's Prescriptions: Continued multivitamin [Multiple Vitamins] Tablet 1 tab PO DAILY Qty: 30 RF: 3 magnesium oxide 400 mg (241.3 mg magnesium) tablet 400 mg PO DAILY Qty: 30 RF: 3 cyanocobalamin (vitamin B-12) [Vitamin B-12] 500 mcg Tablet 1,000 mcg PO DAILY Qty: 30 RF: 3 diltiazem HCl [Cardizem CD] 240 mg capsule,extended release 24hr 240 mg PO DAILY Qty: 30 RF: 1 Discharge Instructions Instructions: Abuse of Alcohol (ED), Anxiety (ED) Additional Instructions: You need to decrease your use of alcohol. Your work-up today was reassuring but does show mild low sodium and you may liberalize salt in the diet this week. Home to rest this evening. Return to the ER for any acute concerns. Medical Decision Making 59-year-old female alcoholic with a history of anxiety, frequent chest pain, palpitations, who presents with recurrent anxiety, chest pressure at home with associated with palpitations. She denies any specific worry. She has not had a fever or cough. She improved after transport via EMS, during which she was given a full aspirin. She arrives anxious but otherwise well-appearing. Screening laboratories, EKG, chest x-ray obtained the patient was given parenteral anxiolytic. Labs reveal mild to moderate hyponatremia which is likely beer potomania due to her daily drinking of approximately 6+ beers. Note is also made of mild transaminitis which I believe is alcoholic as well. Patient was hypomagnesemic and supplemented in the ED. She received 500 cc normal saline fluid bolus. Chest x-ray was unremarkable without acute findings. She was observed on quality assurance monitor body and improved. Repeat troponin was obtained and negative. Discussed with her decreasing alcohol use and. She is stable and appropriate for discharge to home. Lab Data Lab results reviewed: Yes I reviewed the patient's lab results. Labs: Laboratory Results - last 24 hr 07/23/19 07/23/19 07/23/19 21:28 21:28 21:28 WBC 5.40 RBC 3.82 L Hgb 13.9 Hct 38.3 MCV 100.3 H MCH 36.4 H MCHC 36.3 H RDW 12.3 Plt Count 182 MPV 9.9 Immature Gran % 0.2 Neutrophils % 63.7 Lymphocytes % 20.2 Monocytes % 14.6 Eosinophils % 0.7 Basophils % 0.6 Absolute Neutrophils 3.44 Absolute Lymphocytes 1.09 L Absolute Monocytes 0.79 H Absolute Eosinophils 0.04 Absolute Basophils 0.03 Sodium 128 L Potassium 3.9 Chloride 93 L Carbon Dioxide 23.3 Anion Gap 11.7 H BUN 5 L Creatinine 0.75 Estimated GFR/1.73 m2 >= 60.00 Glucose 104 Calcium 8.8 Magnesium 1.4 L Total Bilirubin 0.6 AST 163 H ALT 70 H Alkaline Phosphatase 192 H Troponin I < 0.05 Total Protein 7.9 Albumin 3.6 Ethyl Alcohol 208.3 ECG Data Attestation: I personally reviewed and interpreted this ECG (s) as follows: Interpretation: EKG reveals underlying atrial fibrillation with a ventricular rate of 71, the QRS is narrow, QTc is 443, there is no ST segment elevation. Repeat EKG obtained at 0100 reveals underlying atrial fibrillation, ventricular rate of 63, no ST segment elevation. HPI General Mode of arrival: EMS . Date/Time Provider Initiated Documentation: 07/23/19 21:53 . Limitations to Documentation: no limitations . Information obtained by: patient and EMS . History of Present Illness 59 year old F presents to the emergency department with the chief complaint of Chest pain, pressure, palpitations and anxiety at home, described as moderate and similar to prior episodes, Quality is described as constant, and is localized to the chest. Patient reports no radiation. Patient started experiencing this minute(s) and it has been now resolved. No relieving factors improve symptom(s), No exacerbating factors reported . Patient notes denies shortness of breath and syncope. Patient did receive the following treatments prior to arrival, other (325 mg of aspirin by EMS) Related Data Home Medications Medication Instructions Recorded Confirmed cyanocobalamin (vitamin B-12) 1,000 mcg PO DAILY #30 tab 04/18/19 07/23/19 [Vitamin B-12] magnesium oxide 400 mg PO DAILY #30 tab 04/18/19 07/23/19 multivitamin [Multiple Vitamins] 1 tab PO DAILY #30 tab 04/18/19 07/23/19 diltiazem HCl [Cardizem CD] 240 mg PO DAILY #30 cap 04/24/19 07/23/19 Previous Rx's Medication Instructions Recorded cyanocobalamin (vitamin B-12) 1,000 mcg PO DAILY #30 tab 04/18/19 [Vitamin B-12] magnesium oxide 400 mg PO DAILY #30 tab 04/18/19 multivitamin [Multiple Vitamins] 1 tab PO DAILY #30 tab 04/18/19 diltiazem HCl [Cardizem CD] 240 mg PO DAILY #30 cap 04/24/19 Allergies Allergy/AdvReac Type Severity Reaction Status Date / Time No Known Allergies Allergy Unverified 07/23/19 21:48 General DANNY: 3 Review of Systems Narrative: Ongoing anxiety at home. Drinks approximately 6 beers per day. No recent travel, fever, known sick contacts. 7 systems reviewed and otherwise negative [facility] Medical History Alcohol abuse (Chronic) Anxiety and depression (Inactive 08/06/14) Atrial fibrillation with rapid ventricular response (Inactive) Opiate addiction (Inactive 08/06/14) in recovery. weaned off suboxone through [facility] 05/05/14 Pulmonary nodules (Inactive) SAH (subarachnoid hemorrhage) (Inactive) Tobacco abuse (Chronic 07/07/17) Family History Mother Diabetes Essential hypertension Personal history of malignant neoplasm lung, breast CA Father No problems noted. Sister Essential hypertension Sister No problems noted. Brother No problems noted. Maternal Aunt Personal history of malignant neoplasm breast Social History Smoking/Tobacco Use Status: Current every day Tobacco Type: cigarettes Alcohol Intake: current Alcohol Intake frequency: 3 or more drinks per day Alcohol type: beer Drug use: Never Substance use type: does not use Details: pt reports beer today Household members: significant other Do you feel safe at home: Yes Do you feel safe in your relationship?: Yes Additional Social history: Lives with long-term boyfriend Stepan in [place]. Last work at [employer] but has not worked in years. 2 adult children, including daughter in [place] and son and 2 baby grandkids and [place] Exam Narrative Exam Narrative: GEN: awake, alert, oriented 3. Pleasant, well groomed, interactive. HEAD: Normocephalic, atraumatic ENT: Mucous membranes moist, oropharynx unremarkable, External ear exam unremarkable EYES: PERRL, EOMI NECK: Full ROM, no BLAYNE, no menigismus CHEST/RESP: Nontender, clear to auscultation bilateral, no wheeze/rhonchi/rales CARDIOVASCULAR: Irregularly irregular, no murmur, rub hayes. 2+ Rad pulse bilateral ABDOMEN: Soft, nontender, no mass. +Bowel sounds EXT: Full ROM, no edema, no rash Neuro: Grossly normal neurologic exam, conversant, interactive. Psych: Speech fluent, thoughts congruent, affect anxious
[2019-07-23 21:50] LABS: Abs Immature Grans 0.01 k/cumm (0.0-0.09); Absolute Basophil Count 0.03 k/cumm (0.0-0.2); Absolute Eosinophil Count 0.04 k/cumm (0.0-0.7); Absolute Lymphocyte Count 1.09 k/cumm (1.2-3.4); Absolute Monocyte Count 0.79 k/cumm (0.11-0.7); Absolute Neutrophil Count 3.44 k/cumm (1.2-6.7); Basophils % 0.6; Eosinophils % 0.7; HCT 38.3 % (36.0-46.0); HGB 13.9 g/dL (12.0-15.5); Immature Grans % 0.2 %; Lymphocytes % 20.2; Mean Corp. HGB Concentration 36.3 g/dL (32.0-36.0); Mean Corpuscular Hemoglobin 36.4 pg (27.0-33.0); Mean Corpuscular Volume 100.3 fL (80-95); Mean Platelet Volume 9.9 fL (8.0-11.0); Monocytes % 14.6; Neutrophils % 63.7; Platelet Count 182 x1000/uL (130-400); RBC 3.82 m/cumm (4.00-5.20); RBC Distribution Width 12.3 % (11.7-14.6)
[2019-07-23 22:00] LABS: ETHANOL BLOOD 208.3 mg/dL (<3)
[2019-07-23] MEDS: LORazepam 2 MG/ML VIAL 1 MG IVP (22:04)
[2019-07-23 22:08] LABS: ALT 70 U/L (14-59); AST 163 U/L (15-37); Albumin 3.6 g/dL (3.4-5.0); Alkaline Phosphatase 192 U/L (46-116); Anion Gap 11.7 mmol/L (3-11); BUN 5 mg/dL (7-18); Bilirubin, Total 0.6 mg/dL (0.2-1.0); CO2 23.3 mmol/L (21.0-32.0); CREATININE 0.75 mg/dL (0.55-1.02); Calcium 8.8 mg/dL (8.5-10.1); Chloride 93 mmol/L (98-107); Glucose 104 mg/dL (74-106); Magnesium 1.4 mg/dL (1.8-2.4); Potassium 3.9 mmol/L (3.5-5.1); Sodium 128 mmol/L (136-145); Total Protein 7.9 g/dL (6.4-8.2)
[2019-07-23 22:09] LABS: Troponin I < 0.05 ng/Ml (<0.06)
--- NOTE | 2019-07-23 22:21 | DI.VRAD_ITS ---
PROCEDURE INFORMATION: Exam: XR Chest, 1 View Exam date and time: 07/23/2019 10:06 PM Age: 59 years old Clinical indication: Other: Palpitations, cp and anxiety TECHNIQUE: Imaging protocol: XR of the chest Views: 1 view. COMPARISON: CR XR CHEST 2V PA LATERAL 05/28/2019 11:00 PM FINDINGS: Lungs: Unremarkable. No consolidation. Pleural space: Unremarkable. No pleural effusion. No pneumothorax. Heart/Mediastinum: Unremarkable. No cardiomegaly. Bones/joints: Age related changes in the spine. IMPRESSION: No acute findings. Dictated and Authenticated by: Lavern Hobbs MD. Ordering:MANN Cole MD
[2019-07-23] MEDS: Normal Saline 500 ML IV (22:38)
[2019-07-23] MEDS: MAGNESIUM SULFATE 1 GM/100 ML BAG IVPB (22:38)
[2019-07-24] VITALS (10 sets, daily range): BP systolic 80–98; BP diastolic 57–68; PULSE 57–72; RESP 16–26; TEMP 36.4–36.6; O2SAT 90–94
[2019-07-24 01:11] LABS: Troponin I < 0.05 ng/Ml (<0.06)
--- NOTE | 2019-07-24 02:22 | NUR.NOTE ---
Ambulated to exit with steady gait. Provided with blanket. Pt aware we will inform her when RCT is available.
== END 2019-07-24 02:20 | disposition home or self-care (01) ==
PROVIDERS: Emergency Provider Emergency Medicine; PCP Nurse Practitioner
DX: R74.0 Nonspecific elevation of levels of transaminase and lactic acid dehydrogenase [LDH] (principal); F10.220 Alcohol dependence with intoxication, uncomplicated; Y90.7 Blood alcohol level of 200-239 mg/100 ml; E87.1 Hypo-osmolality and hyponatremia; F41.8 Other specified anxiety disorders; R00.2 Palpitations; E83.42 Hypomagnesemia
CPT/HCPCS: 36415; 80053; 93005; 96361; 96365; 96375; 99284; 71045; 80320; 83735; 84484; 85025; 93010; J2060; J3475

== ENCOUNTER 2019-07-24 23:40 | Emergency (ER) | payer OTHER, SELFPAY ==
[2019-07-24 23:40] VITALS: BP 87/59; PULSE 77; RESP 18; TEMP 36.4; O2SAT 90
--- NOTE | 2019-07-24 23:41 | W.ED.GENAD ---
Discharge Plan Disposition Patient Disposition: HOME Condition: Good Discharge Details Chief Complaint: Chest Pain Clinical Impression: Anxiety, Hypomagnesemia, Chest pain, Alcoholism, Hyponatremia Primary Care Provider: Amarilys Barrera ED Provider: Chente Toro [employer] Meds and New Rx's Prescriptions: Continued multivitamin [Multiple Vitamins] Tablet 1 tab PO DAILY Qty: 30 RF: 3 magnesium oxide 400 mg (241.3 mg magnesium) tablet 400 mg PO DAILY Qty: 30 RF: 3 cyanocobalamin (vitamin B-12) [Vitamin B-12] 500 mcg Tablet 1,000 mcg PO DAILY Qty: 30 RF: 3 diltiazem HCl [Cardizem CD] 240 mg capsule,extended release 24hr 240 mg PO DAILY Qty: 30 RF: 1 Discharge Instructions Instructions: Anxiety (ED) Additional Instructions: You really should try to cut down on your alcohol use. Your sodium and magnesium remain low. Be sure to be liberal in your salt use. You should strongly consider follow-up with mental health and asking primary care about daily antianxiety medication. Follow-up with primary care next week as planned. Return to ED for new/different chest pain, persistent shortness of breath, syncope, other concerns. Referrals: Amarilys Barrera, [employer] [Primary Care Provider] - Medical Decision Making Medical Records Medical records reviewed: Yes I reviewed the patient's medical records. Medical records narrative: Patient presenting again tonight with anxiety and associated chest pain and shortness of breath. Blood pressure and sats little bit low but baseline for patient. Always feels better once EMS arrives and she is in the ED. She is asking for Ativan. In the past I have treated her with hydroxyzine for anxiety. Would avoid benzos given her alcohol abuse. Probably would benefit from being on a daily anxiolytic but has been resistant to follow-up with behavioral health. Will repeat labs tonight as she did have some hyponatremia and hypomagnesemia last night. Will obtain 2 sets of troponins. If negative we will plan discharge. 00:25 - First troponin is negative. Sodium and magnesium remain low, agree likely related to beer potomania/alcohol abuse. We will give a liter of saline while here as well as 2 g of mag. Liver function better than yesterday. Will repeat EKG and troponin at 02:30. 03:00 - Second troponin negative. Patient has been sleeping since receiving hydroxyzine. Saline and magnesium done. Repeat EKG unchanged. Patient to be discharged home to contact primary care for follow-up in mental health referral. Would definitely benefit from being on daily anxiolytic. Lab Data Lab results reviewed: Yes I reviewed the patient's lab results. ECG Data Attestation: I personally reviewed and interpreted this ECG (s) as follows: Prior ECG tracings: available for review Interpretation: EKG #1?atrial fibrillation rate controlled at 79. Low voltage in the limb leads. Normal axis and intervals. Nonspecific ST changes. No significant change from last night. EKG #2?A. fib at 64. Low voltage. Normal axis and intervals. Nonspecific ST changes. No change from earlier. HPI General Mode of arrival: EMS. Date/Time Provider Initiated Documentation: 07/24/19 23:41. Limitations to Documentation: no limitations. Information obtained by: patient, EMS, RN notes reviewed and old records reviewed. HPI Narrative: Patient returns to ED tonight with recurrent anxiety, chest pain, palpitations and shortness of breath. Reports that she has trouble controlling her anxiety sometimes. When that happens she develops chest pain and shortness of breath. If it gets too severe she called 911. She was here last night for similar event. She did receive aspirin and 1 nitroglycerin in route. Currently feels better. Denies fever. Chronic smoker's cough unchanged from previous. No vomiting, diarrhea or abdominal pain. Did not keep her follow-up appointment that was scheduled for today. She did have a telephone call and is rescheduled for next week. She is not on anything for anxiety, but keeps asking for Ativan here. She is a known alcoholic. Currently awake, appropriate with normal speech. Related Data Home Medications Medication Instructions Recorded Confirmed cyanocobalamin (vitamin B-12) 1,000 mcg PO DAILY #30 tab 04/18/19 07/24/19 [Vitamin B-12] magnesium oxide 400 mg PO DAILY #30 tab 04/18/19 07/24/19 multivitamin [Multiple Vitamins] 1 tab PO DAILY #30 tab 04/18/19 07/24/19 diltiazem HCl [Cardizem CD] 240 mg PO DAILY #30 cap 04/24/19 07/24/19 Previous Rx's Medication Instructions Recorded cyanocobalamin (vitamin B-12) 1,000 mcg PO DAILY #30 tab 04/18/19 [Vitamin B-12] magnesium oxide 400 mg PO DAILY #30 tab 04/18/19 multivitamin [Multiple Vitamins] 1 tab PO DAILY #30 tab 04/18/19 diltiazem HCl [Cardizem CD] 240 mg PO DAILY #30 cap 04/24/19 Allergies Allergy/AdvReac Type Severity Reaction Status Date / Time No Known Allergies Allergy Unverified 07/24/19 23:44 General DANNY: 3 Review of Systems Narrative: As documented in HPI otherwise negative as below. Const: no fever, chills, weakness Resp: cough, SOB, no pleuritic pain CV: CP, no diaphoresis, edema, syncope GI: no abdominal pain, nausea, vomiting, diarrhea Neuro: no headache, numbness, focal weakness, confusion [facility] Medical History Alcohol abuse (Chronic) Anxiety and depression (Inactive 08/06/14) Atrial fibrillation with rapid ventricular response (Inactive) Opiate addiction (Inactive 08/06/14) in recovery. weaned off suboxone through [facility] 05/05/14 Pulmonary nodules (Inactive) SAH (subarachnoid hemorrhage) (Inactive) Tobacco abuse (Chronic 07/07/17) Surgical History bunionectomy (Inactive) [email or web address] a few years ago 2005ish History of bilateral tubal ligation (Acute) Social History Smoking/Tobacco Use Status: Current every day Tobacco Type: cigarettes Alcohol Intake: current Alcohol Intake frequency: 3 or more drinks per day Alcohol type: beer Drug use: Never Substance use type: does not use Details: pt reports beer today Household members: significant other Do you feel safe at home: Yes Do you feel safe in your relationship?: Yes Additional Social history: Lives with long-term boyfriend Stepan in [place]. Last work at [employer] but has not worked in years. 2 adult children, including daughter in [place] and son and 2 baby grandkids and [place] Exam Narrative Exam Narrative: Vitals: Afebrile. Blood pressure little low but she typically runs in the 90s. Pulse is rate controlled. O2 sats in the low 90s also chronic and related to her smoking. Const: WDWN female in NAD. Appears older than stated age. HEENT: NC/AT. Normal facial exam. Eyes: Normal conjunctiva and sclera. Neck: Supple. Trachea midline. Lungs: Normal respiratory effort. Lungs are clear. Cor: Irr/irr without murmur/gallop. Good radial pulses. GI: Soft. NT/ND. No guarding or rebound. Neuro: A+O x 3. Normal speech, mentation. Cranial nerves II - XII grossly intact. No gross motor or sensory deficit. Ext: No C/C/E. No calf tenderness. Skin: Warm and dry.
[2019-07-24 23:44] VITALS: RESP 20
[2019-07-25] VITALS (43 sets, daily range): BP systolic 76–102; BP diastolic 48–70; PULSE 54–91; RESP 15–29; O2SAT 86–97
[2019-07-25 00:02] LABS: Absolute Basophil Count 0.03 k/cumm (0.0-0.2); Absolute Eosinophil Count 0.09 k/cumm (0.0-0.7); Absolute Lymphocyte Count 1.38 k/cumm (1.2-3.4); Absolute Monocyte Count 0.64 k/cumm (0.11-0.7); Absolute Neutrophil Count 2.95 k/cumm (1.2-6.7); Basophils % 0.6; Eosinophils % 1.8; HCT 34.5 % (36.0-46.0); HGB 12.6 g/dL (12.0-15.5); Lymphocytes % 27.1; Mean Corp. HGB Concentration 36.5 g/dL (32.0-36.0); Mean Corpuscular Hemoglobin 36.3 pg (27.0-33.0); Mean Corpuscular Volume 99.4 fL (80-95); Mean Platelet Volume 10.2 fL (8.0-11.0); Monocytes % 12.6; Neutrophils % 57.9; Platelet Count 177 x1000/uL (130-400); RBC 3.47 m/cumm (4.00-5.20); White Blood Cell Count 5.09 k/cumm (4.4-10.8)
[2019-07-25 00:16] LABS: ALT 57 U/L (14-59); AST 91 U/L (15-37); Albumin 3.2 g/dL (3.4-5.0); Alkaline Phosphatase 161 U/L (46-116); BUN 3 mg/dL (7-18); Bilirubin, Total 0.5 mg/dL (0.2-1.0); CREATININE 0.66 mg/dL (0.55-1.02); Calcium 8.2 mg/dL (8.5-10.1); Chloride 93 mmol/L (98-107); Glucose 100 mg/dL (74-106); Magnesium 1.6 mg/dL (1.8-2.4); Potassium 3.5 mmol/L (3.5-5.1); Sodium 127 mmol/L (136-145); Total Protein 7.2 g/dL (6.4-8.2)
[2019-07-25 00:20] LABS: Troponin I < 0.05 ng/Ml (<0.06)
[2019-07-25] MEDS: hydrOXYzine HCL 25 MG TAB PO (00:21)
[2019-07-25] MEDS: MAGNESIUM SULFATE 2 GM/50 ML BAG IVPB (00:35)
[2019-07-25] MEDS: Normal Saline Flush 10 ML SYR IVP (00:36)
[2019-07-25] MEDS: Normal Saline 1,000 ML 500 ML IV (00:36)
[2019-07-25 02:49] LABS: Troponin I < 0.05 ng/Ml (<0.06)
[2019-07-25] MEDS: Normal Saline 1,000 ML 1000 ML IV (04:00)
== END 2019-07-25 05:34 | disposition home or self-care (01) ==
PROVIDERS: Emergency Provider Emergency Medicine; PCP Nurse Practitioner
DX: E87.1 Hypo-osmolality and hyponatremia (principal); E83.42 Hypomagnesemia; R07.9 Chest pain, unspecified; F41.8 Other specified anxiety disorders; F10.20 Alcohol dependence, uncomplicated
CPT/HCPCS: 80053; 93005; 96361; 96365; 96366; 99284; 83735; 84484; 85025; 93010

== ENCOUNTER 2019-08-09 01:17 | Emergency (ER) | payer OTHER, SELFPAY ==
[2019-08-09] VITALS (12 sets, daily range): BP systolic 120; BP diastolic 86; PULSE 107–157; RESP 16–24; TEMP 36.6; O2SAT 96–100
[2019-08-09] MEDS: LORazepam 2 MG/ML VIAL 0.5 MG IVP (01:40)
[2019-08-09] MEDS: Normal Saline 500 ML IV (01:41)
[2019-08-09 01:51] LABS: Abs Immature Grans 0.01 k/cumm (0.0-0.09); Absolute Basophil Count 0.04 k/cumm (0.0-0.2); Absolute Eosinophil Count 0.02 k/cumm (0.0-0.7); Absolute Lymphocyte Count 1.22 k/cumm (1.2-3.4); Absolute Monocyte Count 0.64 k/cumm (0.11-0.7); Absolute Neutrophil Count 2.86 k/cumm (1.2-6.7); Basophils % 0.8; Eosinophils % 0.4; HCT 37.5 % (36.0-46.0); HGB 13.6 g/dL (12.0-15.5); Immature Grans % 0.2 %; Lymphocytes % 25.5; Mean Corp. HGB Concentration 36.3 g/dL (32.0-36.0); Mean Corpuscular Hemoglobin 36.5 pg (27.0-33.0); Mean Corpuscular Volume 100.5 fL (80-95); Mean Platelet Volume 10.6 fL (8.0-11.0); Monocytes % 13.4; Neutrophils % 59.7; Platelet Count 141 x1000/uL (130-400); RBC 3.73 m/cumm (4.00-5.20); White Blood Cell Count 4.79 k/cumm (4.4-10.8)
--- NOTE | 2019-08-09 01:51 | W.ED.GENAD ---
Discharge Plan Disposition Patient Disposition: HOME Condition: Good Discharge Details Chief Complaint: Anxiety Clinical Impression: Anxiety, History of medication noncompliance Primary Care Provider: Amarilys Barrera ED Provider: Cristi Dela Cruz Home Meds and New Rx's Prescriptions: New diltiazem HCl [Cardizem CD] 240 mg capsule,extended release 24hr 240 mg PO DAILY 60 Days Qty: 60 RF: 2 Continued multivitamin [Multiple Vitamins] Tablet 1 tab PO DAILY Qty: 30 RF: 3 magnesium oxide 400 mg (241.3 mg magnesium) tablet 400 mg PO DAILY Qty: 30 RF: 3 cyanocobalamin (vitamin B-12) [Vitamin B-12] 500 mcg Tablet 1,000 mcg PO DAILY Qty: 30 RF: 3 Discontinued diltiazem HCl [Cardizem CD] 240 mg capsule,extended release 24hr 240 mg PO DAILY Qty: 30 RF: 1 Discharge Instructions Instructions: Anxiety (ED) Additional Instructions: At this time your work-up has returned and is very reassuring. I think it is very important that you discuss with your PCP potential anxiolytics at home. As we discussed together the emergency department is not the place for long-term prescriptions of these. They are certainly better alternatives to benzodiazepines that are less addictive. It is also very important that you take your normal medications. I have written you a new prescription for your Cardizem. Please take this as directed. If you notice any worsening of your symptoms, or any new symptoms such as vomiting, diarrhea, fever, chills, shortness of breath, chest pain, numbness, weakness, or fainting , please return immediately to the emergency department for reevaluation. Please follow up with your primary care provider as soon as possible for reassessment and reevaluation. As always, it was a pleasure participating in your medical care today. Referrals: Amarilys Barrera, AMADO [Primary Care Provider] - Medical Decision Making 59-year-old female with a past medical history of alcohol abuse, anxiety, depression, paroxysmal A. fib being prescribed Cardizem, but not regularly taking it, not currently on any blood thinners, secondary to concerns for fall, bleed with her history of alcoholism, who does take a daily aspirin, presents today for evaluation of chest pain and anxiety. Over the past 3 months the patient has had multiple visits for this. Patient will often have symptoms of anxiety, but when he gets worse she will contact EMS. She does not take any benzos nor has she been prescribed any. She does continue to drink regularly. No signs of intoxication currently. She denies any pleuritic chest pain, arm neck or shoulder pain. She just describes mild tightness in her chest and states that is been present for the last 3 weeks. No acute changes. On the patient's multiple recent visits she has had notable work-ups for PE, multiple serial troponins, all of which have been negative. She does have some chronic hyponatremia. Patient denies any other complaints her atypical component of her symptoms at this time. She states that this feels identical to her previous anxiety episodes. Physical exam is notably unremarkable aside from mild rhonchi in the right mid lung khan. If symptoms of mild chest tightness for 3 weeks, I would say her symptomatology is notably clinically inconsistent with cardiac etiology especially in conjunction with her multiple negative work-ups, including for PE. Out of an abundance of precaution will get screening EKG, labs, give a very small dose of benzodiazepines. I did discuss with the patient that the emergency department is not an appropriate place for prescription of chronic anxiolytics. Did discuss the importance of close follow-up with her PCP about this. The patient's work-up is otherwise unremarkable if her anxiety is controlled with her Ativan I feel she can likely be discharged. 2 AM EKG shows evidence of atrial fibrillation, initial rate at that time was 140, however moments later the patient's heart rate returned to normal independently without intervention to 101. Pending the remainder of her work-up. Heart rates remained stable here in the ED otherwise. I do feel that anxiety is a notable component of her elevated heart rate. 2:30 AM Chest x-ray negative for acute process. Laboratory work-up has returned, no significant abnormalities. Hemoglobin stable, no white count or left shift. Electrolytes notably stable especially in comparison to normal. AST ALT alk phos are all at baseline for the patient. Troponin normal, no indication for repeat troponin as her symptoms have been consistently present for the last 3 weeks. Chest x-ray shows no evidence of significant large pneumonia. Suspect very mild bronchitis, no indication for antibiotics. Patient's heart rate notably improved, the patient states that she has not been taking any of her Cardizem for the last few weeks secondary to not getting her prescription refilled. We will give her a dose of her home Cardizem here, as well as a prescription for 60 days. At this time with a notably unremarkable work-up I do feel that the patient be safely discharged home. Symptoms clinically inconsistent with PE, dissection, or ACS. Symptoms are clinically consistent with the patient's anxiety. I have extensively reviewed the treatment plan and discharge instructions with the patient. I have addressed all patient concerns at this time. The patient was made aware of what symptoms to monitor for that would warrant a return to the emergency department. Discussed the plan with the patient, they demonstrate verbal understanding and agreement with our assessment and plan at this time. EKG 1: 30 Rate 140, atrial fibrillation, no evidence of STEMI, no evidence of significant ST elevations or depressions. No other abnormalities. FINDINGS: Lungs: Unremarkable. No consolidation. Pleural space: Unremarkable. No pleural effusion. No pneumothorax. Heart/Mediastinum: Unremarkable. No cardiomegaly. Bones/joints: Unremarkable. Other findings: IMPRESSION: No acute findings Thank you for allowing us to participate in the care of your patient. Dictated and Authenticated by: Ubaldo Carranza MD 08/09/2019 2:29 AM Eastern Time ([place] & [place]) HPI General Date/Time Provider Initiated Documentation: 08/09/19 01:24. HPI Narrative: 59-year-old female with a past medical history of alcohol abuse, anxiety, depression, paroxysmal A. fib being prescribed Cardizem, but not regularly taking it, not currently on any blood thinners, secondary to concerns for fall, bleed with her history of alcoholism, who does take a daily aspirin, presents today for evaluation of chest pain and anxiety. Over the past 3 months the patient has had multiple visits for this. Patient will often have symptoms of anxiety, but when he gets worse she will contact EMS. She does not take any benzos nor has she been prescribed any. She does continue to drink regularly. No signs of intoxication currently. She denies any pleuritic chest pain, arm neck or shoulder pain. She just describes mild tightness in her chest and states that is been present for the last 3 weeks. No acute changes. On the patient's multiple recent visits she has had notable work-ups for PE, multiple serial troponins, all of which have been negative. She does have some chronic hyponatremia. Patient denies any other complaints her atypical component of her symptoms at this time. She states that this feels identical to her previous anxiety episodes. Denies PE risk factors such as recent long car rides, immobilization, recent surgery, prior history of DVT or PE, family history of PE or DVT, morbid obesity, exogenous estrogen and smoking, hemoptysis, history of cancer. Of note she does admit to a mild cough, but denies any hemoptysis, significant productivity, shortness of breath. Patient does still smoke tobacco. Related Data Home Medications Medication Instructions Recorded Confirmed cyanocobalamin (vitamin B-12) 1,000 mcg PO DAILY #30 tab 04/18/19 08/09/19 [Vitamin B-12] magnesium oxide 400 mg PO DAILY #30 tab 04/18/19 07/24/19 multivitamin [Multiple Vitamins] 1 tab PO DAILY #30 tab 04/18/19 08/09/19 diltiazem HCl [Cardizem CD] 240 mg PO DAILY 60 Days #60 cap 08/09/19 Previous Rx's Medication Instructions Recorded cyanocobalamin (vitamin B-12) 1,000 mcg PO DAILY #30 tab 04/18/19 [Vitamin B-12] magnesium oxide 400 mg PO DAILY #30 tab 04/18/19 multivitamin [Multiple Vitamins] 1 tab PO DAILY #30 tab 04/18/19 diltiazem HCl [Cardizem CD] 240 mg PO DAILY 60 Days #60 cap 08/09/19 Allergies Allergy/AdvReac Type Severity Reaction Status Date / Time No Known Allergies Allergy Unverified 08/09/19 01:21 General Stated Complaint: Anxiety DANNY: 3 Review of Systems All systems reviewed & are unremarkable except as noted in HPI and below [facility] Medical History Alcohol abuse (Chronic) Anxiety and depression (Inactive 08/06/14) Atrial fibrillation with rapid ventricular response (Inactive) Opiate addiction (Inactive 08/06/14) in recovery. weaned off suboxone through [facility] 05/05/14 Pulmonary nodules (Inactive) SAH (subarachnoid hemorrhage) (Inactive) Tobacco abuse (Chronic 07/07/17) Surgical History bunionectomy (Inactive) jeffryn a few years ago 2005ish History of bilateral tubal ligation (Acute) Family History Mother Diabetes Essential hypertension Personal history of malignant neoplasm lung, breast CA Father No problems noted. Sister Essential hypertension Sister No problems noted. Brother No problems noted. Maternal Aunt Personal history of malignant neoplasm breast Social History Smoking/Tobacco Use Status: Current every day Tobacco Type: cigarettes Alcohol Intake: current Alcohol Intake frequency: 3 or more drinks per day Alcohol type: beer Drug use: Never Substance use type: does not use Details: pt reports beer today Household members: significant other Do you feel safe at home: Yes Do you feel safe in your relationship?: Yes Additional Social history: Lives with long-term boyfriend Stepan in [place]. Last work at [employer] but has not worked in years. 2 adult children, including daughter in [place] and son and 2 baby grandkids and [place] Exam Narrative Exam Narrative: 1.Const: Well-nourished, Well-developed, appearing stated age 2.Eyes: PERRL, no conjunctival injection, and symmetrical lids. 3.ENT: Atraumatic external nose and ears. Moist MM. Neck: Symmetric, trachea midline, No thyromegaly. 4.CVS: +S1/S2, No murmurs or gallops. Peripheral pulses 2+ and equal in all extremities. Brisk capillary refill in all extremities. 5.RESP: Unlabored respiratory effort. Mild rhonchi in the right mid lung khan. No wheezes, or rales. 6.GI: Soft, Nontender/Nondistended, No hepatosplenomegaly. No guarding or rebound. 7.MSK: Normocephalic/Atraumatic, Extremities w/o deformity or ttp No cyanosis or clubbing, Normal movement of all extremities. No pitting edema or calf tenderness. 8.Skin: Warm, Dry. No rashes or lesions. 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 Sensation grossly intact, no focal neurologic deficits. 10.Psych: (AAO) x3. Appropriate mood and affect Course Vital Signs Vital signs: Vital Signs Temperature 36.6 C 08/09/19 01:17 Pulse 107 H 08/09/19 01:17 Respiratory Rate 16 08/09/19 01:17 Blood Pressure 120/86 08/09/19 01:17 Pulse Oximetry 99 08/09/19 01:17 Temperature 36.6 C 08/09/19 01:17 Temperature Source Skin 08/09/19 01:17 Pulse 107 H 08/09/19 01:17 Respiratory Rate 18 08/09/19 01:22 Respiratory Effort Non-Labored 08/09/19 01:22 Respiratory Depth Normal 08/09/19 01:22 Respiratory Pattern Normal 08/09/19 01:22 Blood Pressure 120/86 08/09/19 01:17 Blood Pressure Position Sitting 08/09/19 01:17 Pulse Oximetry 99 08/09/19 01:17 Oxygen Delivery Method Room Air 08/09/19 01:17 Oxygen Flow Rate 0 08/09/19 01:17
[2019-08-09 01:52] LABS: ALT 88 U/L (14-59); AST 163 U/L (15-37); Albumin 3.1 g/dL (3.4-5.0); Alkaline Phosphatase 229 U/L (46-116); Anion Gap 13.3 mmol/L (3-11); BUN 2 mg/dL (7-18); Bilirubin, Total 0.8 mg/dL (0.2-1.0); CO2 22.7 mmol/L (21.0-32.0); CREATININE 0.76 mg/dL (0.55-1.02); Calcium 8.2 mg/dL (8.5-10.1); Chloride 98 mmol/L (98-107); Glucose 96 mg/dL (74-106); Potassium 3.7 mmol/L (3.5-5.1); Sodium 134 mmol/L (136-145); Troponin I < 0.05 ng/mL (<0.06)
--- NOTE | 2019-08-09 02:09 | DI.RAD_ITS ---
EXAM: XR CHEST 2V PA LATERAL CLINICAL HISTORY: chest pain, cough TECHNIQUE: 2D digital imaging was performed. COMPARISON: CR,XR XR CHEST 2V PA LATERAL from 05/28/2019 FINDINGS: MEDIASTINUM: Normal. HEART: Mild cardiomegaly. PULMONARY VASCULATURE: Normal. LUNGS: Clear. PLEURAL SPACE: No pleural effusion or pneumothorax. BONE:Normal. OTHER FINDINGS:Normal. IMPRESSION: No acute pulmonary findings. DATA REPOSITORY: RADIATION DOSE DELIVERED:
[2019-08-09] MEDS: hydrOXYzine HCL 25 MG TAB PO (02:15)
--- NOTE | 2019-08-09 02:29 | DI.VRAD_ITS ---
PROCEDURE INFORMATION: Exam: XR Chest, 2 Views Exam date and time: 08/09/2019 2:00 AM Age: 59 years old Clinical indication: Cough and other: Chest pain TECHNIQUE: Imaging protocol: XR of the chest Views: 2 views. COMPARISON: CR XR PORTABLE CHEST AP 07/23/2019 9:57 PM FINDINGS: Lungs: Unremarkable. No consolidation. Pleural space: Unremarkable. No pleural effusion. No pneumothorax. Heart/Mediastinum: Unremarkable. No cardiomegaly. Bones/joints: Unremarkable. Other findings: IMPRESSION: No acute findings Dictated and Authenticated by: Ubaldo Carranza MD. Ordering:KEM Colin MD
[2019-08-09] MEDS: dilTIAZem CD 120 MG CAPCR 240 MG PO (03:06)
== END 2019-08-09 03:20 | disposition home or self-care (01) ==
LOC: ER 03:10
PROVIDERS: Emergency Provider Student in an Organized Health Care Education/Training Program; PCP Nurse Practitioner
DX: E87.1 Hypo-osmolality and hyponatremia (principal); R07.89 Other chest pain
CPT/HCPCS: 36415; 80053; 93005; 96361; 96374; 99285; 71046; 84484; 85025; 93010; 99284; J2060

== ENCOUNTER 2019-08-16 07:53 | Observation (INO) | payer OTHER, SELFPAY ==
[2019-08-16] VITALS (59 sets, daily range): BP systolic 89–144; BP diastolic 65–119; PULSE 70–165; RESP 14–37; TEMP 36.1–38.4; O2SAT 80–97
--- NOTE | 2019-08-16 08:00 | DI.RAD_ITS ---
EXAM: XR CHEST 2V PA LATERAL CLINICAL HISTORY: intermittent palpitations/CP TECHNIQUE: 2D digital imaging was performed. COMPARISON: No exams were available for comparison FINDINGS: MEDIASTINUM: Normal. HEART: Mild cardiomegaly. PULMONARY VASCULATURE: Normal. LUNGS: Clear. PLEURAL SPACE: No pleural effusion or pneumothorax. BONE:Mild degenerative changes in the spine . IMPRESSION: No acute pulmonary findings. DATA REPOSITORY: RADIATION DOSE DELIVERED:
[2019-08-16] MEDS: Normal Saline 500 ML IV (08:12)
[2019-08-16 08:23] LABS: Abs Immature Grans 0.01 k/cumm (0.0-0.09); Absolute Basophil Count 0.07 k/cumm (0.0-0.2); Absolute Eosinophil Count 0.02 k/cumm (0.0-0.7); Absolute Lymphocyte Count 1.03 k/cumm (1.2-3.4); Absolute Monocyte Count 0.93 k/cumm (0.11-0.7); Absolute Neutrophil Count 4.89 k/cumm (1.2-6.7); Eosinophils % 0.3; HCT 43.4 % (36.0-46.0); HGB 15.7 g/dL (12.0-15.5); Immature Grans % 0.1 %; Lymphocytes % 14.8; Mean Corp. HGB Concentration 36.2 g/dL (32.0-36.0); Mean Corpuscular Hemoglobin 36.3 pg (27.0-33.0); Mean Corpuscular Volume 100.2 fL (80-95); Mean Platelet Volume 10.2 fL (8.0-11.0); Monocytes % 13.4; Neutrophils % 70.4; Platelet Count 178 x1000/uL (130-400); RBC 4.33 m/cumm (4.00-5.20); RBC Distribution Width 13.6 % (11.7-14.6); White Blood Cell Count 6.95 k/cumm (4.4-10.8)
--- NOTE | 2019-08-16 08:23 | ED.GENADUL_ITS ---
Discharge Plan Disposition Patient Disposition: [facility] INPATIENT Condition: Stable Discharge Details Chief Complaint: Chest Pain Clinical Impression: Atrial fibrillation, Tobacco abuse, Alcohol abuse Primary Care Provider: Amarilys Barrera ED Provider: Douglas Farfan Home Meds and New Rx's Prescriptions: No Action diltiazem HCl [Cardizem CD] 240 mg capsule,extended release 24hr 240 mg PO DAILY 60 Days Qty: 60 RF: 2 multivitamin [Multiple Vitamins] Tablet 1 tab PO DAILY Qty: 30 RF: 3 magnesium oxide 400 mg (241.3 mg magnesium) tablet 400 mg PO DAILY Qty: 30 RF: 3 cyanocobalamin (vitamin B-12) [Vitamin B-12] 500 mcg Tablet 1,000 mcg PO DAILY Qty: 30 RF: 3 Medical Decision Making 59-year-old female presents from home with ongoing daily alcohol, cigarette use. She called EMS this morning due to weeks of intermittent palpitations and chest discomfort which describes epigastric pressure. Seems to radiate to her neck at times. She states is worse over the past 2 days. EMS noted she had not been taking her prescribed diltiazem for weeks and gave her 20 mg of IV push. She also received 325 mg of aspirin. She arrives with mild persistent tachycardia, blood pressure 126/88, she is afebrile and oxygenating 97%. She is basically pleasant and anxious, her exam does reveal atrial fibrillation which she has had in the past, question early cellulitis of the right pretibial region. Patient had IV access established, she was given Ativan for anxiety, she received a liter fluid bolus, and was provided a banana bag. Her differential diagnosis is broad as she is a smoker, continues to have likely persistent gastritis from her alcohol use. She underwent screening chest x-ray that was unremarkable, had laboratory analysis, her right leg was dressed with mupirocin ointment. CBC is stable with noted MCV 100. She has slightly increased transaminitis with AST 215, ALT 132. Troponin is negative x2, lipase 321. Most consistent with chronic and persistent alcohol abuse. With probable associated gastritis. She also has medication noncompliance and resultant lack of rate control of underlying atrial fibrillation. She is given a total of 2 L of fluid, banana bag, her daily dose of diltiazem 240 mg, Ativan, and GI cocktail. She had ongoing complaints of chest discomfort and did undergo CT scan of the chest, abdomen and pelvis. This was notable for fatty infiltration of the liver, no other acute findings. Following nearly 4 hours of care, patient with ongoing complaints of epigastric discomfort and persistent tachycardia. She is given an additional 10 mg of diltiazem IV push. Case discussed with hospitalist team and will admit for further management. Lab Data Lab results reviewed: Yes I reviewed the patient's lab results. Labs: Laboratory Results - last 24 hr 08/16/19 08/16/19 08/16/19 07:40 07:40 07:40 WBC 6.95 RBC 4.33 Hgb 15.7 H Hct 43.4 MCV 100.2 H MCH 36.3 H MCHC 36.2 H RDW 13.6 Plt Count 178 MPV 10.2 Immature Gran % 0.1 Neutrophils % 70.4 Lymphocytes % 14.8 Monocytes % 13.4 Eosinophils % 0.3 Basophils % 1.0 Absolute Neutrophils 4.89 Absolute Lymphocytes 1.03 L Absolute Monocytes 0.93 H Absolute Eosinophils 0.02 Absolute Basophils 0.07 PT 11.5 H INR 1.1 APTT 27.6 Sodium 136 Potassium 4.1 Chloride 98 Carbon Dioxide 25.8 Anion Gap 12.2 H BUN 2 L Creatinine 0.86 Estimated GFR/1.73 m2 >= 60.00 Glucose 109 H Calcium 9.2 Magnesium 1.6 L Total Bilirubin 1.5 H AST 215 H ALT 132 H Alkaline Phosphatase 293 H Troponin I < 0.05 Total Protein 8.6 H Albumin 3.7 Lipase 08/16/19 07:40 WBC RBC Hgb Hct MCV MCH MCHC RDW Plt Count MPV Immature Gran % Neutrophils % Lymphocytes % Monocytes % Eosinophils % Basophils % Absolute Neutrophils Absolute Lymphocytes Absolute Monocytes Absolute Eosinophils Absolute Basophils PT INR APTT Sodium Potassium Chloride Carbon Dioxide Anion Gap BUN Creatinine Estimated GFR/1.73 m2 Glucose Calcium Magnesium Total Bilirubin AST ALT Alkaline Phosphatase Troponin I Total Protein Albumin Lipase 321 ECG Data Attestation: I personally reviewed and interpreted this ECG (s) as follows: Interpretation: Atrial fibrillation, underlying ventricular rate of 100, the QRS is narrow, there is no ST segment elevation. HPI General Mode of arrival: EMS . Date/Time Provider Initiated Documentation: 08/16/19 08:06 . Limitations to Documentation: no limitations . Information obtained by: patient and EMS . History of Present Illness 59 year old F presents to the emergency department with the chief complaint of Ongoing daily alcohol, intermittent palpitations, intermittent chest pains , described as moderate and similar to prior episodes, Quality is described as dull and constant, and is localized to the chest. Patient reports no radiation. Patient started experiencing this week(s) and it has been intermittent. No relieving factors improve symptom(s), No exacerbating factors reported . Patient notes other (Chronic cough); denies fever/chills. Patient did receive the following treatments prior to arrival, other (Given 20 mg IV diltiazem, 324 mg aspirin by EMS) Related Data Home Medications Medication Instructions Recorded Confirmed cyanocobalamin (vitamin B-12) 1,000 mcg PO DAILY #30 tab 04/18/19 08/09/19 [Vitamin B-12] magnesium oxide 400 mg PO DAILY #30 tab 04/18/19 07/24/19 multivitamin [Multiple Vitamins] 1 tab PO DAILY #30 tab 04/18/19 08/16/19 diltiazem HCl [Cardizem CD] 240 mg PO DAILY 60 Days #60 cap 08/09/19 Previous Rx's Medication Instructions Recorded cyanocobalamin (vitamin B-12) 1,000 mcg PO DAILY #30 tab 04/18/19 [Vitamin B-12] magnesium oxide 400 mg PO DAILY #30 tab 04/18/19 multivitamin [Multiple Vitamins] 1 tab PO DAILY #30 tab 04/18/19 diltiazem HCl [Cardizem CD] 240 mg PO DAILY 60 Days #60 cap 08/09/19 Allergies Allergy/AdvReac Type Severity Reaction Status Date / Time No Known Allergies Allergy Unverified 08/16/19 08:04 General Stated Complaint: Chest Pain DANNY: 2 Review of Systems Narrative: Daily 6+ beers, smokes approximately 1 pack/day, has chronic cough. No recent falls or injury. Denies headache, fever, chills. She does have some productive sputum at times. No travel or known sick contacts. She denies bloody stool. 10 systems were reviewed and otherwise negative. Please see HPI. She has not been taking her prescribed diltiazem for weeks. She denies to me any other currently prescribed medications. [facility] Medical History Alcohol abuse (Chronic) Anxiety and depression (Inactive 08/06/14) Atrial fibrillation with rapid ventricular response (Inactive) Opiate addiction (Inactive 08/06/14) in recovery. weaned off suboxone through [facility] 05/05/14 Pulmonary nodules (Inactive) SAH (subarachnoid hemorrhage) (Inactive) Tobacco abuse (Chronic 07/07/17) Family History Mother Diabetes Essential hypertension Personal history of malignant neoplasm lung, breast CA Father No problems noted. Sister Essential hypertension Sister No problems noted. Brother No problems noted. Maternal Aunt Personal history of malignant neoplasm breast Social History Smoking/Tobacco Use Status: Current every day Tobacco Type: cigarettes Alcohol Intake: current Alcohol Intake frequency: 3 or more drinks per day Alcohol type: beer Drug use: Never Substance use type: does not use Details: pt reports beer today Household members: significant other Do you feel safe at home: Yes Do you feel safe in your relationship?: Yes Additional Social history: Lives with long-term boyfriend Stepan in [place]. Last work at [employer] but has not worked in years. 2 adult children, including daughter in [place] and son and 2 baby grandkids and [place] Exam Narrative Exam Narrative: GEN: awake, alert, oriented 3. Pleasant, groomed, interactive. HEAD: Normocephalic, atraumatic ENT: Mucous membranes moist, oropharynx unremarkable, External ear exam unremarkable EYES: PERRL, EOMI NECK: Full ROM, no BLAYNE, no menigismus CHEST/RESP: Nontender, there was intermittent left base rhonchi, question scant wheeze CARDIOVASCULAR: Irregularly irregular, pulse approximately 100, no murmur, rub hayes. 2+ Rad pulse bilateral ABDOMEN: Soft, epigastric tenderness without rebound or guarding, no mass. +Bowel sounds EXT: Full ROM, no edema, there is scaly dry skin both pretibial regions, the right has excoriations and mild erythema. There is no fluctuance or tenderness to the area. Neuro: Grossly normal neurologic exam, conversant, interactive. Psych: Speech fluent, thoughts congruent, affect anxious Course Vital Signs Vital signs: Vital Signs Temperature 36.6 C 08/16/19 07:54 Pulse 109 H 08/16/19 07:54 Respiratory Rate 24 08/16/19 07:54 Blood Pressure 126/88 08/16/19 07:54 Pulse Oximetry 97 08/16/19 07:54 Temperature 36.6 C 08/16/19 07:54 Temperature Source Temporal Artery Scan 08/16/19 07:54 Pulse 109 H 08/16/19 08:16 Pulse 139 H 08/16/19 08:16 Respiratory Rate 19 08/16/19 08:16 Respiratory Effort 08/16/19 08:15 Respiratory Depth Normal 08/16/19 08:15 Respiratory Pattern Tachypnea 08/16/19 08:15 Blood Pressure 114/68 08/16/19 08:16 Blood Pressure Mean 74 08/16/19 08:16 Blood Pressure Position Supine 08/16/19 07:54 Pulse Oximetry 97 08/16/19 08:16 Oxygen Delivery Method Room Air 08/16/19 07:54 Oxygen Flow Rate 0 08/16/19 07:54 Pain Level 8 08/16/19 07:54
[2019-08-16] MEDS: LORazepam 2 MG/ML VIAL 1 MG IVP ×2 (08:29→10:48)
[2019-08-16] MEDS: Pantoprazole 40 MG VIAL IVP ×2 (08:31→16:50)
[2019-08-16 08:36] LABS: INR 1.1 (0.9-1.1); PTT Activated 27.6 sec (21.0-31.4); Prothrombin Time 11.5 sec (9.3-11.0)
[2019-08-16 08:37] LABS: ALT 132 U/L (14-59); AST 215 U/L (15-37); Albumin 3.7 g/dL (3.4-5.0); Alkaline Phosphatase 293 U/L (46-116); Anion Gap 12.2 mmol/L (3-11); BUN 2 mg/dL (7-18); Bilirubin, Total 1.5 mg/dL (0.2-1.0); CO2 25.8 mmol/L (21.0-32.0); CREATININE 0.86 mg/dL (0.55-1.02); Calcium 9.2 mg/dL (8.5-10.1); Chloride 98 mmol/L (98-107); Glucose 109 mg/dL (74-106); Magnesium 1.6 mg/dL (1.8-2.4); Potassium 4.1 mmol/L (3.5-5.1); Sodium 136 mmol/L (136-145); Total Protein 8.6 g/dL (6.4-8.2); Troponin I < 0.05 ng/mL (<0.06)
[2019-08-16] MEDS: dilTIAZem CD 120 MG CAPCR 240 MG PO (08:41)
[2019-08-16] MEDS: MAGNESIUM SULFATE 8.12 MEQ, MULTIVITAMIN 10 ML, THIAMINE 100 MG, FOLIC ACID 1 MG in Nor... 168.867 MG IV (08:42)
[2019-08-16 08:44] LABS: Lipase 321 U/L (73-393)
[2019-08-16] MEDS: Normal Saline 1,000 ML 1000 ML IV (10:21)
--- NOTE | 2019-08-16 10:45 | DI.CT_ITS ---
EXAM: CT CHEST PE ABD PELVIS W CLINICAL HISTORY: Chestpain, alcoholism, tachycardia, epigastric natividad. TECHNIQUE: Imaging Protocol: Axial CT angiography was performed with multi-slice acquisition and mu lti-planar and/or 3D reconstructions. CONTRAST MATERIAL: Intravenous: Omnipaque 350 Contrast volume:structured data in ml COMPARISON: CR XR CHEST 2V PA LATERAL from 08/16/2019 FINDINGS: Pulmonary Arteries: No evidence of filling defect to suggest pulmonary emboli. Tracheobronchial tree: Patent where visualized. Mediastinum and Jaye: No dominant adenopathy or fluid collection. Pulmonary parenchyma: Dependent changes. No infiltrate. Pleura: No effusion or pneumothorax. Heart: The heart is not dilated. No coronary artery calcifications are seen. Aorta: Thoracic aorta non-dilated. Mild calcifications. Upper abdomen: Severe faftty infiltration of the liver.. Bones: End plate osteophytes in the thoracic spine. IMPRESSION: No evidence of pulmonary embolism or other acute abnormality. RADIATION DOSE DELIVERED: 1,241.43mGy.cm Total DLP DATA REPOSITORY: All CT scans at this facility are submitted to the National Radiology Data Registry (NRDR) Dose Index Registry (DIR) with the [employer] (ACR). RADIATION OPTIMIZATION: All CT scans at this facility use at least one of these dose optimization te chniques: automated exposure control; mA and/or kV adjustment per patient size (includes targeted exa ms where dose is matched to clinical indication); or iterative reconstruction.
[2019-08-16] MEDS: Omnipaque 350 MG/ML 100 ML BTL IJ (11:21)
[2019-08-16 11:25] LABS: Troponin I < 0.05 ng/mL (<0.06)
[2019-08-16] MEDS: dilTIAZem 25 MG/5 ML VIAL 10 MG IVP ×2 (11:48→12:10)
--- NOTE | 2019-08-16 12:00 | HPE_ITS ---
Date of service: 08/16/19 Time of Service: 12:01 Assessment and Plan Assessment and plan (1) Chest pain: Status: Acute Assessment and plan: 2 sets of negative troponins and no acute EKG st segment changes, likely gastritis from alcohol abuse. will refer to observation on telemetry. continue to cycle troponin and repeat EKG in am. will order PPI, gi cocktail and monitor (2) Atrial fibrillation with rapid ventricular response: Status: Acute Assessment and plan: due to medication non compliance. home medications restarted and she received IV bolus in ED. will monitor on telemetry. (3) Alcohol abuse: Status: Chronic Assessment and plan: monitor for withdrawal. abstinence discussed resources offered. continue banana bag, thiamine. (4) Hypomagnesemia: Status: Acute Assessment and plan: replete and follow, (5) Subclinical hypothyroidism: Status: Acute Assessment and plan: TSH in 4.29, will add to ED labs (6) Rash: Status: Acute Assessment and plan: most consistent with a contact dermatitis. states she's had it for about 2 months and that it is itchy, no pain or swelling. no overt redness to suggest cellulitis but certainly will continue monitoring. will obtain wound care consult. (7) Fever: Status: Acute Assessment and plan: no source of fever noted, I don't think its rash on right lower extremity but maybe possible. will add UA, no acute findings on chest xray History of Present Illness History of Present Illness Chief Complaint: epigastric pain Narrative: This is a 59-year-old female with past medical history significant for atrial fibrillation, medical noncompliance, alcohol abuse, tobacco abuse who presented to the emergency department by EMS after several weeks of intermittent p alpitations and chest discomfort reported in her epigastric area. She does state that the pain radiates to her neck at times. It was noted that she has not taken her Cardizem for possibly the last few weeks so EMS did give her 20 mg of IV Cardizem. She also received 325 mg of aspirin. On arrival to the emergency department she was tachycardic afebrile with normal blood pressure oxygenating in the high 90s on room air. Work-up in the emergency department did show uncontrolled atrial fibrillation for which she has a history of. Troponin and repeat troponin were both negative her work-up was otherwise unremarkable she had elevated transaminitis which is consistent with her ongoing alcohol use. She received IV hydration her daily dose of diltiazem Ativan and a GI cocktail but due to ongoing complaints of chest discomfort and persistent tachycardia with heart rate now in the 120s she was referred to observation under hospitalist service. Review of Systems All systems reviewed & are unremarkable except as noted in HPI and below Constitutional Constitutional: Denies fever(s) Eyes Eyes: Denies change in vision ENT Ears, Nose, Mouth, and Throat: Denies dysphagia, Denies vertigo and Denies dizziness Cardiovascular Cardiovascular: Reports chest pain, Denies syncope, Reports rapid heart rate, Reports irregular heart rhythm, Denies lightheadedness and Denies dyspnea Respiratory Respiratory: Reports cough (Chronic and unchanged) and Denies dyspnea Gastrointestinal Gastrointestinal: Denies abdominal pain, Denies constipation, Denies dysphagia, Reports heartburn, Denies diarrhea and Denies nausea Genitourinary Genitourinary: Denies urinary urgency Musculoskeletal Musculoskeletal: Denies myalgias Integumentary/Breasts Skin/Breast: Reports rash (Right lower extremity most consistent with a contact dermatitis) Neurologic Neurologic: Denies abnormal speech, Denies vertigo, Denies dizziness and Denies syncope Psychiatric Psychiatric: Denies homicidal ideation and Denies suicidal ideation [facility] Medical History Alcohol abuse (Chronic) Anxiety and depression (Inactive 08/06/14) Atrial fibrillation with rapid ventricular response (Inactive) Opiate addiction (Inactive 08/06/14) in recovery. weaned off suboxone through [facility] 05/05/14 Pulmonary nodules (Inactive) SAH (subarachnoid hemorrhage) (Inactive) Tobacco abuse (Chronic 07/07/17) Family History Mother Diabetes Essential hypertension Personal history of malignant neoplasm lung, breast CA Father No problems noted. Sister Essential hypertension Sister No problems noted. Brother No problems noted. Maternal Aunt Personal history of malignant neoplasm breast Social History Smoking/Tobacco Use Status: Current every day Tobacco Type: cigarettes Alcohol Intake: current Alcohol Intake frequency: 3 or more drinks per day Alcohol type: beer Drug use: Never Substance use type: does not use Details: pt reports beer today Household members: significant other Do you feel safe at home: Yes Do you feel safe in your relationship?: Yes Additional Social history: Lives with long-term boyfriend Stepan in [place]. Last work at [employer] but has not worked in years. 2 adult children, including daughter in [place] and son and 2 baby grandkids and [place] Meds Home Medications and Allergies Home Medications Medication Instructions Recorded Confirmed Type cyanocobalamin (vitamin B-12) 1,000 mcg PO DAILY #30 tab 04/18/19 08/16/19 Rx [Vitamin B-12] magnesium oxide 400 mg PO DAILY #30 tab 04/18/19 08/16/19 Rx multivitamin [Multiple Vitamins] 1 tab PO DAILY #30 tab 04/18/19 08/16/19 Rx diltiazem HCl [Cardizem CD] 240 mg PO DAILY 60 Days #60 cap 08/09/19 08/16/19 Rx Allergies Allergy/AdvReac Type Severity Reaction Status Date / Time No Known Allergies Allergy Unverified 08/16/19 08:04 Exam Const General: cooperative, no acute distress, disheveled, frail appearing (Older appearing than stated age) and ill appearing chronically Nutritional Appearance: overweight Orientation: alert and awake Eyes Conjunctivae: conjunctival abnormality bilaterally conjunctival injection (Bloodshot) Sclera: scleral abnormality bilaterally scleral injection (blood shot eyes) Cornea: corneas normal Resp Effort & Inspection: cough Quality of cough: wet Auscultation: rhonchi (Scattered coarse breath sounds that clear with coughing) and no wheezes Cardio Rhythm: abnormal rhythm (Controlled to uncontrolled atrial fibrillation on the monitor) irregularly irregular GI Inspection: normal to inspection Palpation: soft Auscultation: normal bowel sounds Skin Rashes: rashes noted (Right lower extremity most consistent with a contact dermatitis) Neuro General: patient alert, patient awake and patient oriented x3 Cranial Nerves: CN's II-XI intact bilaterally Extrem General: normal to inspection and full ROM Results Labs Result diagrams: 08/16/19 07:40 08/16/19 07:40 Labs: Laboratory Results - last 24 hr 08/16/19 08/16/19 08/16/19 07:40 07:40 07:40 WBC 6.95 RBC 4.33 Hgb 15.7 H Hct 43.4 MCV 100.2 H MCH 36.3 H MCHC 36.2 H RDW 13.6 Plt Count 178 MPV 10.2 Immature Gran % 0.1 Neutrophils % 70.4 Lymphocytes % 14.8 Monocytes % 13.4 Eosinophils % 0.3 Basophils % 1.0 Absolute Neutrophils 4.89 Absolute Lymphocytes 1.03 L Absolute Monocytes 0.93 H Absolute Eosinophils 0.02 Absolute Basophils 0.07 PT 11.5 H INR 1.1 APTT 27.6 Sodium 136 Potassium 4.1 Chloride 98 Carbon Dioxide 25.8 Anion Gap 12.2 H BUN 2 L Creatinine 0.86 Estimated GFR/1.73 m2 >= 60.00 Glucose 109 H Calcium 9.2 Magnesium 1.6 L Total Bilirubin 1.5 H AST 215 H ALT 132 H Alkaline Phosphatase 293 H Troponin I < 0.05 Total Protein 8.6 H Albumin 3.7 Lipase 08/16/19 08/16/19 07:40 11:00 WBC RBC Hgb Hct MCV MCH MCHC RDW Plt Count MPV Immature Gran % Neutrophils % Lymphocytes % Monocytes % Eosinophils % Basophils % Absolute Neutrophils Absolute Lymphocytes Absolute Monocytes Absolute Eosinophils Absolute Basophils PT INR APTT Sodium Potassium Chloride Carbon Dioxide Anion Gap BUN Creatinine Estimated GFR/1.73 m2 Glucose Calcium Magnesium Total Bilirubin AST ALT Alkaline Phosphatase Troponin I < 0.05 Total Protein Albumin Lipase 321 Last Vital Signs Temp 36.6 C 08/16/19 07:54 Pulse 134 H 08/16/19 11:53 Resp 28 H 08/16/19 11:50 BP 144/110 H 08/16/19 11:53 Pulse Ox 94 L 08/16/19 11:50 COVID-19 Screening In the past 14 days, have you traveled outside of [place]?: YES Had IN PERSON contact w/suspected or confirmed C-19 person: No
[2019-08-16 12:12] LABS: ETHANOL BLOOD 62.2 mg/dL (<3)
[2019-08-16] MEDS: MAGNESIUM SULFATE 1 GM/100 ML BAG IVPB (13:39)
[2019-08-16] MEDS: Acetaminophen 500 MG TAB 1000 MG PO (13:40)
[2019-08-16] MEDS: Metoprolol 5 MG/5 ML VIAL IVP (13:42)
[2019-08-16 16:48] LABS: Troponin I < 0.05 ng/mL (<0.06)
[2019-08-16] MEDS: Normal Saline 1,000 ML 150 ML IV (16:49)
[2019-08-16 16:50] LABS: TSH 2.19 uIU/mL (0.36-3.74)
[2019-08-16] MEDS: Normal Saline Flush 10 ML SYR (16:55)
--- NOTE | 2019-08-16 18:39 | WOUNDCONS ---
- If Service Date Differs Date of service: 08/16/19 Time of Service: 18:00 Wound Initial Evaluation - Wound Right Lower Tib/Fib(lower leg) Wound Type: Other (raised rash) Wound General Appearance: Reddened Wound Bed Greatest Portion: Dusky Red Wound Bed Lesser Portion: Blanched/Dull Wound Surrounding Tissue Appearance: Normal/Healthy Wound Length: 17.5 cm Wound Width: 12.2 cm Wound Depth: 0.1 cm (less than) Wound Drainage Amount: None Wound Drainage Odor: None/Absent Wound Drainage Description: No drainage Wound Debridement Method: Mechanical Wound Debridement Result: Healthy Tissue Revealed Wound Debridement Amount of Tissue Removed: None - Circulation, Sensation, Motion Edema Degree: 1+ Peripheral Pulse Strength: Normal Capillary Refill: Less than 3 seconds Sensation Description: Within Normal Limits Skin Temperature: Warm Skin Color: Normal - BURTON Comment:: BURTON not indicated - Pain Pain Level: 0 (itches) Pain Scale Used: Visual Analog Scale 0-10 Patient presents with a rash with raised papules on the rle. Patient stated that this rash has been present for about 3-4 weeks, though she cannot recall the exact duration. She denies pain with the rash, but it does itch, and she has scratched at times leading to area having been open and bleeding at times per patient. Wound was cleaned with warm water and soap and patted dry. Foot care was provided and a podiatry consult will be reccomended for thick micotic nails - Treatment/Dressing Change Topicals/Ointments: Medicated Ointment (mupirocin) Cleanse With: Sterile Water (warm water and soap) Dressing Types: Kerlix (Gauze Roll) (telfa covered with kerlix secured with tape) - Recomendation Recomendation:: Cleanse wound with soap and warm water, then pat dry. Apply Mupirocin , thin layer to the base of the wound. Cover wound with Telfa pads wrap with Kerlix, secure with tape. Change twice daily. Physcian/Nurse Practioner Notified: Yes (Ruby Leon APRN) Referrals: Podiatry (Thick micotic nails) Treatment Time - Time Total Time Spent with Patient: 35 minutes - Patient Will be Seen Weekly Treatment: bid - For: For:: 1 week
[2019-08-16] MEDS: Melatonin 3 MG TAB 6 MG PO (22:04)
[2019-08-16 22:55] LABS: COVID-19 RT-PCR UVMMC Result Negative (Negative)
[2019-08-17] MEDS: LORazepam 2 MG/ML VIAL 1 MG IVP ×2 (02:20→11:50)
[2019-08-17] MEDS: Normal Saline 1,000 ML 150 ML IV ×2 (02:23→06:05)
[2019-08-17 04:54] VITALS: BP 116/80; PULSE 89; RESP 16; TEMP 37.3; O2SAT 95
[2019-08-17 06:41] LABS: Abs Immature Grans 0.03 k/cumm (0.0-0.09); Absolute Basophil Count 0.02 k/cumm (0.0-0.2); Absolute Eosinophil Count 0.01 k/cumm (0.0-0.7); Absolute Lymphocyte Count 0.77 k/cumm (1.2-3.4); Absolute Monocyte Count 1.12 k/cumm (0.11-0.7); Absolute Neutrophil Count 5.66 k/cumm (1.2-6.7); Basophils % 0.3; Eosinophils % 0.1; HCT 36.5 % (36.0-46.0); HGB 12.8 g/dL (12.0-15.5); Immature Grans % 0.4 %; Lymphocytes % 10.1; Mean Corp. HGB Concentration 35.1 g/dL (32.0-36.0); Mean Corpuscular Hemoglobin 35.9 pg (27.0-33.0); Mean Corpuscular Volume 102.2 fL (80-95); Mean Platelet Volume 10.2 fL (8.0-11.0); Monocytes % 14.7; Neutrophils % 74.4; Platelet Count 135 x1000/uL (130-400); RBC 3.57 m/cumm (4.00-5.20); RBC Distribution Width 13.9 % (11.7-14.6); White Blood Cell Count 7.61 k/cumm (4.4-10.8)
[2019-08-17 07:25] VITALS: BP 115/82; PULSE 110; RESP 19; TEMP 36.9; O2SAT 91
[2019-08-17] MEDS: Cyanocobalamin 500 MCG TAB 1000 MCG PO (07:42)
[2019-08-17] MEDS: Magnesium Oxide 400 MG TAB PO (07:42)
[2019-08-17] MEDS: Multivitamin TAB 1 TAB PO (07:42)
[2019-08-17] MEDS: dilTIAZem CD 120 MG CAPCR 240 MG PO (07:43)
[2019-08-17 07:45] VITALS: O2SAT 95
[2019-08-17 07:55] LABS: BUN 3 mg/dL (7-18); CREATININE 0.67 mg/dL (0.55-1.02); Calcium 7.8 mg/dL (8.5-10.1); Chloride 104 mmol/L (98-107); Glucose 109 mg/dL (74-106); Magnesium 1.9 mg/dL (1.8-2.4); Potassium 3.6 mmol/L (3.5-5.1); Sodium 137 mmol/L (136-145)
[2019-08-17 07:56] LABS: Troponin I 0.08 ng/mL (<0.06)
[2019-08-17 08:26] LABS: Bilirubin Color Interference (Negative); Blood Color Interference (Negative); Clarity Cloudy (Clear); Glucose Color Interference mg/dL (Negative); Ketones Color Interference mg/dL (Negative); Leukocyte Esterase Color Interference (Negative); Nitrite Color Interference (Negative); Specific Gravity 1.016 (1.005-1.025); Urobilinogen Color Interference EU/dL (Up TO 0.2)
[2019-08-17 08:33] LABS: Bacteria Packed HPF (Negative); C & S Indicated? No/Sq. Contamination; Epithelial Cells Moderate HPF (Negative); WBC >50 HPF (0-5)
--- NOTE | 2019-08-17 09:00 | POCOE_ITS ---
Date of service: 08/17/19 Time of Service: 09:01 History of Present Illness History of Present Illness Chief Complaint: Painful mycotic toenails Narrative: 59-year-old female with multiple comorbidities including alcohol abuse epigastric pain hyponatremia anxiety atrial fibrillation hypothyroidism seen at bedside with complaints of painful overgrown toenails. [facility] Medical History Alcohol abuse (Chronic) Anxiety and depression (Inactive 08/06/14) Atrial fibrillation with rapid ventricular response (Inactive) Opiate addiction (Inactive 08/06/14) in recovery. weaned off suboxone through [facility] 05/05/14 Pulmonary nodules (Inactive) SAH (subarachnoid hemorrhage) (Inactive) Tobacco abuse (Chronic 07/07/17) Surgical History bunionectomy (Inactive) lamontangen a few years ago 2005ish History of bilateral tubal ligation (Acute) Family History Mother Diabetes Essential hypertension Personal history of malignant neoplasm lung, breast CA Father No problems noted. Sister Essential hypertension Sister No problems noted. Brother No problems noted. Maternal Aunt Personal history of malignant neoplasm breast Social History Smoking/Tobacco Use Status: Current every day Tobacco Type: cigarettes Alcohol Intake: current Alcohol Intake frequency: 3 or more drinks per day Alcohol type: beer Drug use: Never Substance use type: does not use Details: pt reports beer today Household members: significant other Do you feel safe at home: Yes Do you feel safe in your relationship?: Yes Additional Social history: Lives with long-term boyfriend Stepan in [place]. Last work at [employer] but has not worked in years. 2 adult children, including daughter in [place] and son and 2 baby grandkids and [place] Exam Narrative Exam Narrative: Peripheral pulses are manually palpable at the ankles graded minus 2 out of 4 and plus 1 out of 4 bilaterally. No peripheral edema was appreciated at this time. Feet are warm to the touch. Capillary fill time to all digits under 3 seconds. Dermatologic exam reveals chronic tinea pedis with a moccasin style infection appreciated bilaterally with webspace involvement. No secondary signs of bacterial infection observed. The toenails are mycotic being heavy, yellowed, thick, dystrophic, hypertrophic, elongated and in need of debridement. There is subungual debris with periungual tenderness. There is no active drainage noted. A wound is noted on her right leg which is currently wrapped in gauze. This was not removed. Muscle groups of 5 out of 5 bilaterally although deconditioned. Skeletal exam is currently benign. Previous bunionectomy of the right foot appreciated. Neurologically toes were downgoing. Impressions: Onychomycosis with onychogryphosis Tinea pedis Plan: I explained to Shantel that the tinea pedis is a direct extension from the onychomycosis. The skin is much easier to clear of fungal infections and we will start her on ketoconazole topical daily for 4 weeks. The toenails will best be served through palliation as long-term treatment. If palliative care fails to provide relief of symptoms then permanent removal of the nail plates can be considered. Mechanically debrided all toenails 1 through 5 bilaterally aggressively and atraumatically to patient tolerance. Gently curettaged all debris free of the nail grooves. Marked relief of sensitivity was noted upon debridement. I I did suggest that she consider continuing podiatric care to maintain comfort and I did recommend a follow-up at the office in 3 months time. Results Last Vital Signs Temp 36.9 C 08/17/19 07:25 Pulse 110 H 08/17/19 07:25 Resp 19 08/17/19 07:25 BP 115/82 08/17/19 07:25 Pulse Ox 95 08/17/19 07:45 Labs Result diagrams: 08/17/19 06:10 08/17/19 06:10 Labs: Laboratory Results - last 24 hr 08/16/19 08/16/19 08/16/19 11:00 12:00 12:25 WBC RBC Hgb Hct MCV MCH MCHC RDW Plt Count MPV Immature Gran % Neutrophils % Lymphocytes % Monocytes % Eosinophils % Basophils % Absolute Neutrophils Absolute Lymphocytes Absolute Monocytes Absolute Eosinophils Absolute Basophils Sodium Potassium Chloride Carbon Dioxide Anion Gap BUN Creatinine Estimated GFR/1.73 m2 Glucose Calcium Magnesium Troponin I < 0.05 TSH Urine Color Urine Clarity Urine pH Ur Specific [place] Urine Protein Urine Ketones Urine Blood Urine Nitrite Urine Bilirubin Urine Urobilinogen Ur Leukocyte Esterase Urine RBC Urine WBC Ur Epithelial Cells Urine Crystals Urine Bacteria Urine Mucus Ur Culture Indicated? Urine Glucose Ethyl Alcohol 62.2 COVID-19 PCR Negative Nasopharyn COVID-19 PCR Not Applicable Ref Test Perform Site [place] [facility] 08/16/19 08/16/19 08/16/19 15:55 15:55 23:49 WBC RBC Hgb Hct MCV MCH MCHC RDW Plt Count MPV Immature Gran % Neutrophils % Lymphocytes % Monocytes % Eosinophils % Basophils % Absolute Neutrophils Absolute Lymphocytes Absolute Monocytes Absolute Eosinophils Absolute Basophils Sodium Potassium Chloride Carbon Dioxide Anion Gap BUN Creatinine Estimated GFR/1.73 m2 Glucose Calcium Magnesium Troponin I < 0.05 TSH 2.19 Urine Color Cancelled Urine Clarity Cancelled Urine pH Cancelled Ur Specific [place] Cancelled Urine Protein Cancelled Urine Ketones Cancelled Urine Blood Cancelled Urine Nitrite Cancelled Urine Bilirubin Cancelled Urine Urobilinogen Cancelled Ur Leukocyte Esterase Cancelled Urine RBC Urine WBC Ur Epithelial Cells Urine Crystals Urine Bacteria Urine Mucus Ur Culture Indicated? Urine Glucose Cancelled Ethyl Alcohol COVID-19 PCR Nasopharyn COVID-19 PCR Ref Test Perform Site 08/17/19 08/17/19 08/17/19 06:10 06:10 08:00 WBC 7.61 RBC 3.57 L Hgb 12.8 D Hct 36.5 MCV 102.2 H MCH 35.9 H MCHC 35.1 RDW 13.9 Plt Count 135 MPV 10.2 Immature Gran % 0.4 Neutrophils % 74.4 Lymphocytes % 10.1 Monocytes % 14.7 Eosinophils % 0.1 Basophils % 0.3 Absolute Neutrophils 5.66 Absolute Lymphocytes 0.77 L Absolute Monocytes 1.12 H Absolute Eosinophils 0.01 Absolute Basophils 0.02 Sodium 137 Potassium 3.6 Chloride 104 Carbon Dioxide 23.0 Anion Gap 10.0 BUN 3 L Creatinine 0.67 Estimated GFR/1.73 m2 >= 60.00 Glucose 109 H Calcium 7.8 L Magnesium 1.9 Troponin I 0.08 H* TSH Urine Color [place] Urine Clarity Cloudy Urine pH Not Applicable Ur Specific [place] 1.016 Urine Protein Color interference Urine Ketones Color interference Urine Blood Color interference Urine Nitrite Color interference Urine Bilirubin Color interference Urine Urobilinogen Color interference Ur Leukocyte Esterase Color interference Urine RBC Not Applicable Urine WBC >50 H Ur Epithelial Cells Moderate Urine Crystals Not Applicable Urine Bacteria Packed Urine Mucus Not Applicable Ur Culture Indicated? No/sq. contamination Urine Glucose Color interference Ethyl Alcohol COVID-19 PCR Nasopharyn COVID-19 PCR Ref Test Perform Site
--- NOTE | 2019-08-17 10:49 | W.CARDCONSUL ---
Date of service: 08/17/19 Time of Service: 10:50 Assessment and Plan Assessment and plan (1) Alcohol abuse: Status: Chronic (2) Atrial fibrillation with rapid ventricular response: Status: Acute Assessment and plan: 1. Atrial fibrillation with rapid ventricular response. It sounds as though the patient has not been taking her diltiazem at home which initially been controlling her rates. She is also not on anticoagulation due to significant alcohol abuse and concerns for noncompliance and falling risk. She is now back on her diltiazem with better rate control. I agree with the primary team that she is high risk for anticoagulation and would hold off for now. Her chads Vasc score is 1-2 (1 for female another point for questionable hypertension history) ?Continue rate control with diltiazem. Do not think this patient would be a good candidate for cardioversion or antiarrhythmic therapy given her questionable compliance. ?As above would hold off on full anticoagulation but would give patient aspirin for now. 2. Elevated troponin: This is in the setting of atrial fibrillation with RVR. She does have some epigastric pain but this resolved with a GI cocktail and she is a known alcoholic. She does have risk factors for coronary artery disease including history of hyperlipidemia tobacco abuse and age. I would be very hesitant to send her to the catheterization lab even if she did have a positive stress test given her questionable compliance and need for dual antiplatelet therapy. For now I think we can medically manage her with an aspirin and a statin. She will need an echocardiogram as an outpatient or on Tuesday as our human resources technician is not here today. She will also need a stress test as an outpatient. ?Echocardiogram as outpatient or on Tuesday ?Stress test in the next few weeks. It sounds like it might be difficult for her to do a treadmill given her balance problems. ?Start aspirin 81 mg ?Start moderate intensity statin and draw lipids Please call cardiology for any further questions. History of Present Illness History of Present Illness Chief Complaint: elevated troponin Narrative: Ms. Bee is a 59-year-old female with past medical history significant for alcohol abuse, atrial fibrillation and COPD who presented to the hospital with epigastric pain. The pain did not radiate anywhere and was not associated with exertion. It was ongoing for many hours prior to coming to the emergency room. The patient was found to be in atrial fibrillation with RVR. She had 2- troponins and EKG that did not show any significant ST changes. She was brought into the hospital for rate control which has been done with diltiazem. She was previously on diltiazem at home but has been noncompliant with that. She is also not anticoagulated. Last night she received a GI cocktail which settled down her epigastric pain. She has had no recurrence of that. This morning of her on her third troponin draw it was elevated to 0.08 after 2 previously normal troponins. She has no ongoing chest pain right now. Cardiology has been consulted to determine further steps in the management of her atrial fibrillation and now borderline elevated troponin. Of note she also says that she is having a lot of trouble with balance. We discussed whether or not she be able to do a treadmill stress test since she thought that might be difficult for her given her recent troubles. Review of Systems All systems reviewed & are unremarkable except as noted in HPI and below PFSH Medical History Alcohol abuse (Chronic) Anxiety and depression (Inactive 08/06/14) Atrial fibrillation with rapid ventricular response (Inactive) Opiate addiction (Inactive 08/06/14) in recovery. weaned off suboxone through [facility] 05/05/14 Pulmonary nodules (Inactive) SAH (subarachnoid hemorrhage) (Inactive) Tobacco abuse (Chronic 07/07/17) Surgical History bunionectomy (Inactive) lamontangen a few years ago 2005ish History of bilateral tubal ligation (Acute) Family History Mother Diabetes Essential hypertension Personal history of malignant neoplasm lung, breast CA Father No problems noted. Sister Essential hypertension Sister No problems noted. Brother No problems noted. Maternal Aunt Personal history of malignant neoplasm breast Social History Smoking/Tobacco Use Status: Current every day Tobacco Type: cigarettes Alcohol Intake: current Alcohol Intake frequency: 3 or more drinks per day Alcohol type: beer Drug use: Never Substance use type: does not use Details: pt reports beer today Household members: significant other Do you feel safe at home: Yes Do you feel safe in your relationship?: Yes Additional Social history: Lives with long-term boyfriend Stepan in [place]. Last work at [employer] but has not worked in years. 2 adult children, including daughter in [place] and son and 2 baby grandkids and [place] Exam Const General: comfortable and no acute distress HENMI Head: normocephalic and atraumatic Eyes General: appearance normal, both eyes and all related structures Resp Effort & Inspection: normal respiratory effort Auscultation: clear to auscultation bilaterally Cardio Jugular venous pressure: no JVD Palpation: normal PMI Rate: tachycardic Rhythm: abnormal rhythm Heart Sounds: S1 normal and S2 normal (No Murmurs, Rubs or Gallops) GI Palpation: soft Auscultation: normoactive bowel sounds Skin General skin exam: no rashes or lesions noted Extrem General: normal to inspection and no clubbing, cyanosis or edema Psych Appearance: grossly normal Results Last Vital Signs Temp 36.9 C 08/17/19 07:25 Pulse 110 H 08/17/19 07:25 Resp 19 08/17/19 07:25 BP 115/82 08/17/19 07:25 Pulse Ox 95 08/17/19 07:45 Labs Result diagrams: 08/17/19 06:10 08/17/19 06:10 Labs: Laboratory Results - last 24 hr 08/16/19 08/16/19 08/16/19 11:00 12:00 12:25 WBC RBC Hgb Hct MCV MCH MCHC RDW Plt Count MPV Immature Gran % Neutrophils % Lymphocytes % Monocytes % Eosinophils % Basophils % Absolute Neutrophils Absolute Lymphocytes Absolute Monocytes Absolute Eosinophils Absolute Basophils Sodium Potassium Chloride Carbon Dioxide Anion Gap BUN Creatinine Estimated GFR/1.73 m2 Glucose Calcium Magnesium Troponin I < 0.05 TSH Urine Color Urine Clarity Urine pH Ur Specific [place] Urine Protein Urine Ketones Urine Blood Urine Nitrite Urine Bilirubin Urine Urobilinogen Ur Leukocyte Esterase Urine RBC Urine WBC Ur Epithelial Cells Urine Crystals Urine Bacteria Urine Mucus Ur Culture Indicated? Urine Glucose Ethyl Alcohol 62.2 COVID-19 PCR Negative Nasopharyn COVID-19 PCR Not Applicable Ref Test Perform Site [facility] 08/16/19 08/16/19 08/16/19 15:55 15:55 23:49 WBC RBC Hgb Hct MCV MCH MCHC RDW Plt Count MPV Immature Gran % Neutrophils % Lymphocytes % Monocytes % Eosinophils % Basophils % Absolute Neutrophils Absolute Lymphocytes Absolute Monocytes Absolute Eosinophils Absolute Basophils Sodium Potassium Chloride Carbon Dioxide Anion Gap BUN Creatinine Estimated GFR/1.73 m2 Glucose Calcium Magnesium Troponin I < 0.05 TSH 2.19 Urine Color Cancelled Urine Clarity Cancelled Urine pH Cancelled Ur Specific [place] Cancelled Urine Protein Cancelled Urine Ketones Cancelled Urine Blood Cancelled Urine Nitrite Cancelled Urine Bilirubin Cancelled Urine Urobilinogen Cancelled Ur Leukocyte Esterase Cancelled Urine RBC Urine WBC Ur Epithelial Cells Urine Crystals Urine Bacteria Urine Mucus Ur Culture Indicated? Urine Glucose Cancelled Ethyl Alcohol COVID-19 PCR Nasopharyn COVID-19 PCR Ref Test Perform Site 08/17/19 08/17/19 08/17/19 06:10 06:10 08:00 WBC 7.61 RBC 3.57 L Hgb 12.8 D Hct 36.5 MCV 102.2 H MCH 35.9 H MCHC 35.1 RDW 13.9 Plt Count 135 MPV 10.2 Immature Gran % 0.4 Neutrophils % 74.4 Lymphocytes % 10.1 Monocytes % 14.7 Eosinophils % 0.1 Basophils % 0.3 Absolute Neutrophils 5.66 Absolute Lymphocytes 0.77 L Absolute Monocytes 1.12 H Absolute Eosinophils 0.01 Absolute Basophils 0.02 Sodium 137 Potassium 3.6 Chloride 104 Carbon Dioxide 23.0 Anion Gap 10.0 BUN 3 L Creatinine 0.67 Estimated GFR/1.73 m2 >= 60.00 Glucose 109 H Calcium 7.8 L Magnesium 1.9 Troponin I 0.08 H* TSH Urine Color [place] Urine Clarity Cloudy Urine pH Not Applicable Ur Specific [place] 1.016 Urine Protein Color interference Urine Ketones Color interference Urine Blood Color interference Urine Nitrite Color interference Urine Bilirubin Color interference Urine Urobilinogen Color interference Ur Leukocyte Esterase Color interference Urine RBC Not Applicable Urine WBC >50 H Ur Epithelial Cells Moderate Urine Crystals Not Applicable Urine Bacteria Packed Urine Mucus Not Applicable Ur Culture Indicated? No/sq. contamination Urine Glucose Color interference Ethyl Alcohol COVID-19 PCR Nasopharyn COVID-19 PCR Ref Test Perform Site
[2019-08-17] MEDS: Aspirin 325 MG TAB PO (11:15)
[2019-08-17] MEDS: Potassium Chloride 20 MEQ TABCR PO (11:15)
[2019-08-17 11:25] VITALS: BP 130/83; PULSE 96; RESP 19; TEMP 36.5; O2SAT 95
[2019-08-17 12:20] LABS: Troponin I < 0.05 ng/mL (<0.06)
[2019-08-17 12:20] LABS: Calculated LDL 27 mg/dL (<100); Cholesterol 74 mg/dL (<200); HDL Cholesterol 41 mg/dL (40-60); Triglyceride 33 mg/dL (<150)
--- NOTE | 2019-08-17 12:35 | W.NUTRFU ---
Date of service: 08/17/19 Time of Service: 12:36 Nutritional Follow up NOTE: 59 year old female admitted with chest pain. Strong hx of ETOH and tobacco use. Receiving MVI, thiamin, folic acid for repletion. Labs unremarkable. No concerns with difficulty eating and skin intact. Following Regular meal plan with > 75% meal acceptance. No recent weight change, BMI wnl. Will continue to monitor meal and fluid intake and make necessary recommendations for optimal intake. Currently meeting nutrient and fluid needs. No nutritional recommendations at this time. Time Spent in Nutritional Counseling and Treatment: 0 time
--- NOTE | 2019-08-17 12:55 | DSE_ITS ---
Date of service: 08/17/19 Time of Service: 12:55 DS: Diagnosis Discharge Diagnosis (1) Alcohol abuse: Status: Chronic (2) Atrial fibrillation with rapid ventricular response: Status: Acute (3) Elevated troponin: Status: Acute Discharge Plan Disposition Patient Disposition: HOME Condition: Stable Discharge Details Chief Complaint: Chest Pain Clinical Impression: Atrial fibrillation, Tobacco abuse, Alcohol abuse Reason For Visit: AFIB WITH RVR Admit Date/Time: 08/16/19 12:15 Admit Provider: Angelito Lorenz Attending Provider: Angelito Lorenz Primary Care Provider: Amarilys Barrera ED Provider: Douglas Farfan Hospital Course Hospital Course: This is a 59-year-old female with past medical history significant for atrial fibrillation, medical noncompliance, alcohol abuse, tobacco abuse who presented to the emergency department by EMS after several weeks of intermittent palpitations and chest discomfort reported in her epigastric area. She does state that the pain radiates to her neck at times. It was noted that she has not taken her Cardizem for possibly the last few weeks so EMS did give her 20 mg of IV Cardizem. She also received 325 mg of aspirin. On arrival to the emergency department she was tachycardic afebrile with normal blood pressure oxygenating in the high 90s on room air. Work-up in the emergency department did show uncontrolled atrial fibrillation for which she has a history of. Trop onin and repeat troponin were both negative her work-up was otherwise unremarkable she had elevated transaminitis which is consistent with her ongoing alcohol use. She received IV hydration her daily dose of diltiazem Ativan and a GI cocktail but due to ongoing complaints of chest discomfort and persistent tachycardia with heart rate now in the 120s she was referred to observation under hospitalist service. She received protonix and another gi cocktail with resolution of her symptoms. she had better rate control back on her cardizem. in the morning it was noted that her troponin was elevated at 0.08 but this was thought to be rate related. Her case was discussed with Dr Ramirez who recommends outpatient stress test and echo if her troponins are trending downward which is did and at noon it was < 0.05. Also recommended is daily aspirin and moderate dose statin. Full anticoagulation not recommended at this time due to significant alcohol abuse and concerns for noncompliance and falling risk. case and discharge plan discussed with Dr Lorenz who is in agreement. Home Meds and New Rx's Prescriptions: New aspirin 81 mg Tablet,Delayed Release (Dr/Ec) 81 mg PO DAILY Qty: 0 RF: 0 atorvastatin 40 mg tablet 40 mg PO DAILY Qty: 30 RF: 0 pantoprazole 40 mg tablet,delayed release (DR/EC) 40 mg PO DAILY Qty: 30 RF: 0 Continued diltiazem HCl [Cardizem CD] 240 mg capsule,extended release 24hr 240 mg PO DAILY 60 Days Qty: 60 RF: 2 multivitamin [Multiple Vitamins] Tablet 1 tab PO DAILY Qty: 30 RF: 3 magnesium oxide 400 mg (241.3 mg magnesium) tablet 400 mg PO DAILY Qty: 30 RF: 3 cyanocobalamin (vitamin B-12) [Vitamin B-12] 500 mcg Tablet 1,000 mcg PO DAILY Qty: 30 RF: 3 Discharge Instructions Instructions: A-fib (Atrial Fibrillation) (DC), Chest Pain (DC) Additional Instructions: take all your medications as prescribed avoid alcohol and tobacco Stand Alone Forms: Nursing Discharge Form Referrals: Amarilys Barrera NP [Primary Care Provider] - 09/03/19 3:30 pm Activity:: Activity as Tolerated Equipment/Supplies:: No Equipment Needed Diet:: As Tolerated Discharge Orders Discharge Orders: Discharge Order (Routine); Ordered 08/17/19 Ordered By: Ruby Leon Other Ambulatory Orders: US echocardiogram (Routine) Location: None Selected Ordered By: Ruby Leon IN MPI rest & stress grp (Routine) Location: None Selected Ordered By: Ruby Leon DS: Summary Status at Discharge Functional status at discharge: independent ambulation Overall status at discharge: patient is back to baseline Mental Status: mental status grossly normal Speech and Movement: speech and movement normal Mood: congruent mood Affect: normal affect Exam Const General: cooperative, no acute distress, disheveled, frail appearing (Older appearing than stated age) and ill appearing chronically Nutritional Appearance: overweight Orientation: alert and awake Eyes Conjunctivae: conjunctival abnormality bilaterally conjunctival injection (Bloodshot) Sclera: scleral abnormality bilaterally scleral injection (blood shot eyes) Cornea: corneas normal Resp Effort & Inspection: cough Quality of cough: wet Auscultation: rhonchi (Scattered coarse breath sounds that clear with coughing) and no wheezes Cardio Rhythm: abnormal rhythm (Controlled to uncontrolled atrial fibrillation on the monitor) irregularly irregular GI Inspection: normal to inspection Palpation: soft Auscultation: normal bowel sounds Skin Rashes: rashes noted (Right lower extremity most consistent with a contact dermatitis) Neuro General: patient alert, patient awake and patient oriented x3 Cranial Nerves: CN's II-XI intact bilaterally Extrem General: normal to inspection and full ROM Psych Mental Status: mental status grossly normal Speech and Movement: speech and movement normal Mood: congruent mood Affect: normal affect DS: Data Vitals/I&O Vitals and I&O: Vital Signs Temperature 36.9 C 08/17/19 07:25 Temperature Source Tympanic 08/17/19 07:25 Pulse 110 H 08/17/19 07:25 Pulse Rhythm Irregular 08/17/19 07:45 Pulse 97 H 08/16/19 12:31 Respiratory Rate 19 08/17/19 07:25 Respiratory Effort 08/17/19 07:45 Respiratory Depth Normal 08/17/19 07:45 Respiratory Pattern Normal 08/17/19 07:45 Blood Pressure 115/82 08/17/19 07:25 Blood Pressure Mean 90 08/16/19 12:31 Blood Pressure Position Supine 08/16/19 07:54 Pulse Oximetry 95 08/17/19 07:45 Oxygen Delivery Method Room Air 08/17/19 07:45 Oxygen Flow Rate 0 08/17/19 07:45 Pain Level 8 08/17/19 07:25 Intake & Output 08/16/19 08/17/19 08/17/19 23:59 11:59 23:59 Intake Total 2523.2 / 4523.200 552.5 / 1442.5 890 / 1442.5 Output Total 900 / 900 300 / 300 Balance 1623.2 / 3623.200 252.5 / 1142.5 890 / 1142.5 Weight 69.5 kg 71.5 kg Intake: IV 2113.2 / 4113.200 552.5 / 1442.5 890 / 1442.5 Oral 410 / 410 Output: Urine 900 / 900 300 / 300 Other: Urine Color Dark [place] Urine Appearance Clear Cloudy Urine Odor None Comment contaminated with fecal matter urine was mixed with bm Stool Size Small Small Stool Characteristics Liquid Soft Liquid Voiding Methods Bedside Commode Bedside Commode # Voids 2 Data Completed and Pending Labs on day of discharge: Labs from last 24 hours 08/17/19 08/17/1908/16/20 11:56 08:00 06:31 WBC RBC Hgb Hct MCV MCH MCHC RDW Plt Count MPV Immature Gran % Neutrophils % Lymphocytes % Monocytes % Eosinophils % Basophils % Absolute Neutrophils Absolute Lymphocytes Absolute Monocytes Absolute Eosinophils Absolute Basophils Sodium Potassium Chloride Carbon Dioxide Anion Gap BUN Creatinine Estimated GFR/1.73 m2 Glucose Calcium Magnesium Troponin I < 0.05 Triglycerides 33 Total Cholesterol 74 LDL Cholesterol, Calc 27 HDL Cholesterol 41 TSH Urine Color [place] Urine Clarity Cloudy Urine pH Not Applicable Ur Specific [place] 1.016 Urine Protein Color interference Urine Ketones Color interference Urine Blood Color interference Urine Nitrite Color interference Urine Bilirubin Color interference Urine Urobilinogen Color interference Ur Leukocyte Esterase Color interference Urine RBC Not Applicable Urine WBC >50 H Ur Epithelial Cells Moderate Urine Crystals Not Applicable Urine Bacteria Packed Urine Mucus Not Applicable Ur Culture Indicated? No/sq. contamination Urine Glucose Color interference COVID-19 PCR Nasopharyn COVID-19 PCR Ref Test Perform Site 08/17/19 08/17/19 08/16/19 06:10 06:10 23:49 WBC 7.61 RBC 3.57 L Hgb 12.8 D Hct 36.5 MCV 102.2 H MCH 35.9 H MCHC 35.1 RDW 13.9 Plt Count 135 MPV 10.2 Immature Gran % 0.4 Neutrophils % 74.4 Lymphocytes % 10.1 Monocytes % 14.7 Eosinophils % 0.1 Basophils % 0.3 Absolute Neutrophils 5.66 Absolute Lymphocytes 0.77 L Absolute Monocytes 1.12 H Absolute Eosinophils 0.01 Absolute Basophils 0.02 Sodium 137 Potassium 3.6 Chloride 104 Carbon Dioxide 23.0 Anion Gap 10.0 BUN 3 L Creatinine 0.67 Estimated GFR/1.73 m2 >= 60.00 Glucose 109 H Calcium 7.8 L Magnesium 1.9 Troponin I 0.08 H* Triglycerides Total Cholesterol LDL Cholesterol, Calc HDL Cholesterol TSH Urine Color Cancelled Urine Clarity Cancelled Urine pH Cancelled Ur Specific [place] Cancelled Urine Protein Cancelled Urine Ketones Cancelled Urine Blood Cancelled Urine Nitrite Cancelled Urine Bilirubin Cancelled Urine Urobilinogen Cancelled Ur Leukocyte Esterase Cancelled Urine RBC Urine WBC Ur Epithelial Cells Urine Crystals Urine Bacteria Urine Mucus Ur Culture Indicated? Urine Glucose Cancelled COVID-19 PCR Nasopharyn COVID-19 PCR Ref Test Perform Site 08/16/19 08/16/19 08/16/19 15:55 15:55 12:25 WBC RBC Hgb Hct MCV MCH MCHC RDW Plt Count MPV Immature Gran % Neutrophils % Lymphocytes % Monocytes % Eosinophils % Basophils % Absolute Neutrophils Absolute Lymphocytes Absolute Monocytes Absolute Eosinophils Absolute Basophils Sodium Potassium Chloride Carbon Dioxide Anion Gap BUN Creatinine Estimated GFR/1.73 m2 Glucose Calcium Magnesium Troponin I < 0.05 Triglycerides Total Cholesterol LDL Cholesterol, Calc HDL Cholesterol TSH 2.19 Urine Color Urine Clarity Urine pH Ur Specific [place] Urine Protein Urine Ketones Urine Blood Urine Nitrite Urine Bilirubin Urine Urobilinogen Ur Leukocyte Esterase Urine RBC Urine WBC Ur Epithelial Cells Urine Crystals Urine Bacteria Urine Mucus Ur Culture Indicated? Urine Glucose COVID-19 PCR Negative Nasopharyn COVID-19 PCR Not Applicable Ref Test Perform Site [place] [facility] Medical History Alcohol abuse (Chronic) Anxiety and depression (Inactive 08/06/14) Atrial fibrillation with rapid ventricular response (Inactive) Opiate addiction (Inactive 08/06/14) in recovery. weaned off suboxone through [facility] 05/05/14 Pulmonary nodules (Inactive) SAH (subarachnoid hemorrhage) (Inactive) Tobacco abuse (Chronic 07/07/17) Surgical History bunionectomy (Inactive) lamontangen a few years ago 2005ish History of bilateral tubal ligation (Acute) Family History Mother Diabetes Essential hypertension Personal history of malignant neoplasm lung, breast CA Father No problems noted. Sister Essential hypertension Sister No problems noted. Brother No problems noted. Maternal Aunt Personal history of malignant neoplasm breast Social History Smoking/Tobacco Use Status: Current every day Tobacco Type: cigarettes Alcohol Intake: current Alcohol Intake frequency: 3 or more drinks per day Alcohol type: beer Drug use: Never Substance use type: does not use Details: pt reports beer today Household members: significant other Do you feel safe at home: Yes Do you feel safe in your relationship?: Yes Additional Social history: Lives with long-term boyfriend Stepan in [place]. Last work at [employer] but has not worked in years. 2 adult children, including daughter in [place] and son and 2 baby grandkids and [place]
[2019-08-17] MEDS: Ketoconazole 2% CREAM 15 GM TUBE TP (14:00)
--- NOTE | 2019-08-17 16:26 | PDOC.CMPRO ---
Care Management Progress Note CM provided coordination for RCT transport, including transport to [facility] for prescriptions. CM provided funds for prescriptions as well. Shantel shared no other concerns upon discharge.
== END 2019-08-17 14:48 | disposition home or self-care (01) ==
LOC: ER 12:02 → MS 12:49
PROVIDERS: Nurse Practitioner Acute Care; Admitting Provider Internal Medicine; Emergency Provider Emergency Medicine; PCP Nurse Practitioner; Visit Provider Internal Medicine
DX: R07.89 Other chest pain (principal); I48.91 Unspecified atrial fibrillation; F17.210 Nicotine dependence, cigarettes, uncomplicated; F10.10 Alcohol abuse, uncomplicated; Z11.59 Encounter for screening for other viral diseases; R10.13 Epigastric pain; F41.8 Other specified anxiety disorders; F11.21 Opioid dependence, in remission; T46.1X6A Underdosing of calcium-channel blockers, initial encounter; R50.9 Fever, unspecified; E03.9 Hypothyroidism, unspecified; E83.42 Hypomagnesemia; B35.1 Tinea unguium; B35.3 Tinea pedis; R79.89 Other specified abnormal findings of blood chemistry
CPT/HCPCS: 11721; 36415; 71275; 74177; 80048; 80053; 80061; 83690; 93005; 94640; 96361; 96365; 96366; 96375; 96376; 99214; 99217; 99220; 99254; 99285; U0003; 71046; 80320; 81003; 81015; 83735; 84443; 84484; 85025; 85610; 85730; 93010; G0378; J2060; J3475; J3490

== ENCOUNTER → 2019-08-17 10:16 | Outpatient (BNVA) | payer OTHER, SELFPAY | PROVIDERS: PCP Nurse Practitioner; Referring Provider Nurse Practitioner; Visit Provider Internal Medicine Cardiovascular Disease | DX: R69 Illness, unspecified (principal) ==

== ENCOUNTER 2019-08-20 11:53 | Observation (INO) | payer OTHER, SELFPAY ==
[2019-08-20] VITALS (36 sets, daily range): BP systolic 104–133; BP diastolic 74–91; PULSE 71–178; RESP 15–40; TEMP 35.9–37.3; O2SAT 91–98
[2019-08-20 12:12] LABS: Abs Immature Grans 0.01 k/cumm (0.0-0.09); Absolute Basophil Count 0.06 k/cumm (0.0-0.2); Absolute Eosinophil Count 0.08 k/cumm (0.0-0.7); Absolute Lymphocyte Count 0.88 k/cumm (1.2-3.4); Absolute Monocyte Count 1.13 k/cumm (0.11-0.7); Absolute Neutrophil Count 3.58 k/cumm (1.2-6.7); Eosinophils % 1.4; HCT 38.1 % (36.0-46.0); HGB 13.5 g/dL (12.0-15.5); Immature Grans % 0.2 %; Lymphocytes % 15.3; Mean Corp. HGB Concentration 35.4 g/dL (32.0-36.0); Mean Corpuscular Volume 101.6 fL (80-95); Monocytes % 19.7; Neutrophils % 62.4; Platelet Count 203 x1000/uL (130-400); RBC 3.75 m/cumm (4.00-5.20); RBC Distribution Width 13.6 % (11.7-14.6); White Blood Cell Count 5.74 k/cumm (4.4-10.8)
[2019-08-20] MEDS: LORazepam 0.5 MG TAB PO (12:22)
[2019-08-20 12:41] LABS: ALT 71 U/L (14-59); AST 109 U/L (15-37); Albumin 2.9 g/dL (3.4-5.0); Alkaline Phosphatase 190 U/L (46-116); Anion Gap 11.9 mmol/L (3-11); Bilirubin, Total 1.5 mg/dL (0.2-1.0); CO2 23.1 mmol/L (21.0-32.0); CREATININE 0.65 mg/dL (0.55-1.02); Calcium 8.7 mg/dL (8.5-10.1); Chloride 102 mmol/L (98-107); Glucose 100 mg/dL (74-106); Magnesium 1.5 mg/dL (1.8-2.4); NT-proBNP 1526 pg/mL (<300); Potassium 3.6 mmol/L (3.5-5.1); Sodium 137 mmol/L (136-145)
[2019-08-20 12:54] LABS: ETHANOL BLOOD 176.3 mg/dL (<3); TSH (W/Ref FT4) 7.62 uIU/mL (0.36-3.74)
[2019-08-20 12:59] LABS: Troponin I < 0.05 ng/mL (<0.06)
--- NOTE | 2019-08-20 13:03 | DI.RAD_ITS ---
EXAM: XR PORTABLE CHEST AP CLINICAL HISTORY: SOB TECHNIQUE: 2D digital imaging was performed. COMPARISON: CR,XR XR PORTABLE CHEST AP from 07/23/2019 FINDINGS: Heart size is within normal limits. The pulmonary vasculature is unremarkable. There are small bila teral pleural effusions. No pneumothorax is identified. No focal consolidating infiltrates are seen . Degenerative changes are seen in the spine. IMPRESSION: Small bilateral pleural effusions. DATA REPOSITORY: RADIATION DOSE DELIVERED:
[2019-08-20 13:04] LABS: D-Dimer 1957 ng/mlFEU (<500)
[2019-08-20 13:08] LABS: BUN 1 mg/dL (7-18)
--- NOTE | 2019-08-20 13:09 | ED.GENADUL_ITS ---
Discharge Plan Disposition Condition: Improving Discharge Details Chief Complaint: SOB Admit Date/Time: 08/20/19 14:16 Admit Provider: Amy Chávez Attending Provider: Amy Chávez Primary Care Provider: Amarilys Barrera ED Provider: Trish Reeder Discharge Instructions Activity:: Activity as Tolerated Equipment/Supplies:: No Equipment Needed Diet:: As Tolerated Discharge Orders Discharge Orders: Discharge Order (Routine); Ordered 08/21/19 Ordered By: Ruby Leon Discharge Data Discharge Date/Time-TO BE ENTERED AT DEPARTURE: 08/20/19 15:21 Medical Decision Making Shantel Bee is a 59 y/o woman who presented to the emergency department with palpitations, found to be in afib RVR in the field by EMS, now with rate controlled after IV dilt in the field. On exam Pt with clear lungs and noew LE pitting edema. Concern for metabolic/lyte derangement, ACS, CHF, pulm embolism, other. Exam/hx not c/w acute aortic process, sepsis. Doubt PNA, COVID, other infectious process. Plan for EKG, CXR, screening labs, telemetry. Will monitor and reassess. Labs reviewed, hypomagnesemia, elevated BNP, and EtOH. D-dimer elevated, but in setting of recent afib with RVR, symptoms resolved completely after dilt, will defer CT chest. Plan for admission. I discussed Pt with Dr. Ramirez of cardiology, who agreed with admission given medication non-compliance and etoh use, will follow. Clinical Impression: afib, CHF Disposition: NV inpt Medical Records Medical records reviewed: Yes I reviewed the patient's medical records. Imaging Data Radiologic Study: Attestation: I personally reviewed and interpreted this imaging study as follows: Radiologist's impression: EXAM: XR PORTABLE CHEST AP CLINICAL HISTORY: SOB TECHNIQUE: 2D digital imaging was performed. COMPARISON: CR,XR XR PORTABLE CHEST AP from 07/23/2019 FINDINGS: Heart size is within normal limits. The pulmonary vasculature is unremarkable. There are small bilateral pleural effusions. No pneumothorax is identified. No focal consolidating infiltrates are seen. Degenerative changes are seen in the spine. IMPRESSION: Small bilateral pleural effusions. Lab Data Lab results reviewed: Yes I reviewed the patient's lab results. ECG Data Attestation: I personally reviewed and interpreted this ECG (s) as follows: Interpretation: EKG shows atrial fibrillation at 96, normal axis, low voltage seen on prior HPI General Mode of arrival: EMS . Date/Time Provider Initiated Documentation: 08/20/19 11:56 . Limitations to Documentation: no limitations . Information obtained by: patient, EMS, RN notes reviewed and old records reviewed . HPI Narrative: Shantel Bee is a 59-year-old woman with a history of alcohol abuse, atrial fibrillation, COPD, subarachnoid hemorrhage presenting to the emergency department with shortness of breath and rapid heart rate. Patient reports that over the past 1 to 2 weeks she has been feeling short of breath while she takes walks outside of her home. She reports that she has a history of atrial fibrillation and intermittently feels that her heart is racing. Pt reports that she had an episode of heart racing and felt unwell and SOB during it, and called EMS. EMS found her to be in afib with RVR and gave 15mg diltiazem IV, which reduced rate to below 100. She reports occasional CP, though none now and none during episode today. Pt reports that she drinks 6 beers per day and doesn't always take her prescribed diltiazem. She was admitted here 08/15 for afib with RVR and discharged 08/16 with outpt cardiology f/u. She denies fever, cough, vomiting, diarrhea, numbness, weakness. Related Data Home Medications Medication Instructions Recorded Confirmed cyanocobalamin (vitamin B-12) 1,000 mcg PO DAILY #30 tab 04/18/19 08/25/19 [Vitamin B-12] magnesium oxide 400 mg PO DAILY #30 tab 04/18/19 08/25/19 multivitamin [Multiple Vitamins] 1 tab PO DAILY #30 tab 04/18/19 08/25/19 diltiazem HCl [Cardizem CD] 240 mg PO DAILY 60 Days #60 cap 08/09/19 08/25/19 aspirin 81 mg PO DAILY #0 tab 08/17/19 08/25/19 atorvastatin 40 mg PO DAILY #30 tab 08/17/19 08/25/19 pantoprazole 40 mg PO DAILY #30 tab 08/17/19 08/25/19 Previous Rx's Medication Instructions Recorded cyanocobalamin (vitamin B-12) 1,000 mcg PO DAILY #30 tab 04/18/19 [Vitamin B-12] magnesium oxide 400 mg PO DAILY #30 tab 04/18/19 multivitamin [Multiple Vitamins] 1 tab PO DAILY #30 tab 04/18/19 diltiazem HCl [Cardizem CD] 240 mg PO DAILY 60 Days #60 cap 08/09/19 aspirin 81 mg PO DAILY #0 tab 08/17/19 atorvastatin 40 mg PO DAILY #30 tab 08/17/19 pantoprazole 40 mg PO DAILY #30 tab 08/17/19 Allergies Allergy/AdvReac Type Severity Reaction Status Date / Time No Known Allergies Allergy Unverified 08/25/19 00:48 General Stated Complaint: SOB DANNY: 2 Review of Systems Narrative: Constitutional: denies fevers Eyes: denies eye pain ENT: denies ear pain, dental pain, sore throat Cardiovascular: reports occasional CP, palpitations, lightheadedness, new lower extremity edema Respiratory: denies cough, reports SOB GI: denies abdominal pain, vomiting, diarrhea : denies flank pain MSK: denies back pain, neck pain, arthralgias, myalgias Skin: denies rash Neuro: denies headaches, numbness, weakness [facility] Medical History Alcohol abuse (Chronic) Anxiety and depression (Inactive 08/06/14) Atrial fibrillation with rapid ventricular response (Inactive) Opiate addiction (Inactive 08/06/14) in recovery. weaned off suboxone through [facility] 05/05/14 Pulmonary nodules (Inactive) SAH (subarachnoid hemorrhage) (Inactive) Tobacco abuse (Chronic 07/07/17) Surgical History bunionectomy (Inactive) lamontangen a few years ago 2005ish History of bilateral tubal ligation (Acute) Family History Mother Diabetes Essential hypertension Personal history of malignant neoplasm lung, breast CA Father No problems noted. Sister Essential hypertension Sister No problems noted. Brother No problems noted. Maternal Aunt Personal history of malignant neoplasm breast Social History Smoking/Tobacco Use Status: Current every day Tobacco Type: cigarettes Alcohol Intake: current Alcohol Intake frequency: 3 or more drinks per day Alcohol type: beer Drug use: Never Substance use type: does not use Details: Pt reports beer today. Household members: significant other Do you feel safe at home: Yes Do you feel safe in your relationship?: Yes Additional Social history: Lives with long-term boyfriend Stepan in [place]. Last work at [employer] but has not worked in years. 2 adult children, including daughter in [place] and son and 2 baby grandkids and [place] Exam Narrative Exam Narrative: Constitutional: somewhat chronically ill but acutely [id number], pleasant, conversing normally HENT: head atraumatic/normocephalic/normal inspection, mucous membranes moist Eyes: conjunctiva normal, sclera normal, pupils 3mm b/l Neck: no stridor, normal ROM, trachea midline Chest: normal inspection Resp: normal work of breathing, LCTAB Cardio: normal rate, irregular rhythm, no murmur appreciated GI: abdomen soft, non-tender, non-distended Back: normal inspection, no rash Skin: warm, dry, normal color, no rash Neuro: alert, not altered, grossly non-focal, normal tone Ext: 2+ pitting edema b/l LEs Psych: normal mood, normal affect, normal behavior Course Vital Signs Vital signs: Vital Signs Temperature 36.7 C 08/20/19 11:56 Pulse 98 H 08/20/19 11:56 Respiratory Rate 16 08/20/19 11:56 Blood Pressure 110/80 08/20/19 11:56 Pulse Oximetry 98 08/20/19 11:56 Temperature 36.7 C 08/20/19 11:56 Temperature Source Skin 08/20/19 11:56 Pulse 98 H 08/20/19 11:56 Respiratory Rate 25 H 08/20/19 12:05 Respiratory Effort Non-Labored 08/20/19 12:05 Respiratory Depth Normal 08/20/19 12:05 Respiratory Pattern Normal 08/20/19 12:05 Blood Pressure 110/80 08/20/19 11:56 Blood Pressure Position Sitting 08/20/19 11:56 Pulse Oximetry 98 08/20/19 11:56 Oxygen Delivery Method Room Air 08/20/19 11:56 Oxygen Flow Rate 0 08/20/19 11:56 Pain Level 4 08/20/19 12:05 Comment 06/22/20 11:56 Lab/Test Results Lab/Test Results: Laboratory Tests Range/Units 08/20/19 08/20/19 08/20/19 11:40 11:40 11:40 WBC (4.4-10.8) k/cumm 5.74 RBC (4.00-5.20) m/cumm 3.75 L Hgb (12.0-15.5) g/dL 13.5 Hct (36.0-46.0) % 38.1 MCV (80-95) fL 101.6 H MCH (27.0-33.0) pg 36.0 H MCHC (32.0-36.0) g/dL 35.4 RDW (11.7-14.6) % 13.6 Plt Count (130-400) x1000/uL 203 MPV (8.0-11.0) fL 10.0 Immature Gran % % 0.2 Neutrophils % 62.4 Lymphocytes % 15.3 Monocytes % 19.7 Eosinophils % 1.4 Basophils % 1.0 Absolute Neutrophils (1.2-6.7) k/cumm 3.58 Absolute Lymphocytes (1.2-3.4) k/cumm 0.88 L Absolute Monocytes (0.11-0.7) k/cumm 1.13 H Absolute Eosinophils (0.0-0.7) k/cumm 0.08 Absolute Basophils (0.0-0.2) k/cumm 0.06 D-Dimer (<500) ng/mlFEU Sodium (136-145) mmol/L 137 Potassium (3.5-5.1) mmol/L 3.6 Chloride (98-107) mmol/L 102 Carbon Dioxide (21.0-32.0) mmol/L 23.1 Anion Gap (3-11) mmol/L 11.9 H BUN (7-18) mg/dL 1 L Creatinine (0.55-1.02) mg/dL 0.65 Estimated GFR/1.73 m2 (mL/min/1.73m2) >= 60.00 Glucose (74-106) mg/dL 100 Calcium (8.5-10.1) mg/dL 8.7 Magnesium (1.8-2.4) mg/dL 1.5 L Total Bilirubin (0.2-1.0) mg/dL 1.5 H AST (15-37) U/L 109 H ALT (14-59) U/L 71 H Alkaline Phosphatase (46-116) U/L 190 H Troponin I (<0.06) ng/mL < 0.05 NT-Pro-B Natriuret Pep (<300) pg/mL 1526 H Total Protein (6.4-8.2) g/dL 7.0 Albumin (3.4-5.0) g/dL 2.9 L TSH (0.36-3.74) uIU/mL 7.62 H Ethyl Alcohol (<3) mg/dL 176.3 Range/Units 08/20/19 11:40 WBC (4.4-10.8) k/cumm RBC (4.00-5.20) m/cumm Hgb (12.0-15.5) g/dL Hct (36.0-46.0) % MCV (80-95) fL MCH (27.0-33.0) pg MCHC (32.0-36.0) g/dL RDW (11.7-14.6) % Plt Count (130-400) x1000/uL MPV (8.0-11.0) fL Immature Gran % % Neutrophils % Lymphocytes % Monocytes % Eosinophils % Basophils % Absolute Neutrophils (1.2-6.7) k/cumm Absolute Lymphocytes (1.2-3.4) k/cumm Absolute Monocytes (0.11-0.7) k/cumm Absolute Eosinophils (0.0-0.7) k/cumm Absolute Basophils (0.0-0.2) k/cumm D-Dimer (<500) ng/mlFEU 1957 H Sodium (136-145) mmol/L Potassium (3.5-5.1) mmol/L Chloride (98-107) mmol/L Carbon Dioxide (21.0-32.0) mmol/L Anion Gap (3-11) mmol/L BUN (7-18) mg/dL Creatinine (0.55-1.02) mg/dL Estimated GFR/1.73 m2 (mL/min/1.73m2) Glucose (74-106) mg/dL Calcium (8.5-10.1) mg/dL Magnesium (1.8-2.4) mg/dL Total Bilirubin (0.2-1.0) mg/dL AST (15-37) U/L ALT (14-59) U/L Alkaline Phosphatase (46-116) U/L Troponin I (<0.06) ng/mL NT-Pro-B Natriuret Pep (<300) pg/mL Total Protein (6.4-8.2) g/dL Albumin (3.4-5.0) g/dL TSH (0.36-3.74) uIU/mL Ethyl Alcohol (<3) mg/dL
[2019-08-20 13:20] LABS: Bilirubin Negative (Negative); Blood Negative (Negative); Clarity Clear (Clear); Glucose Negative (Negative); Ketones Negative (Negative); Leukocyte Esterase Small (Negative); Nitrite Negative (Negative); Specific Gravity <= 1.005 (1.005-1.025); Urobilinogen 0.2 EU/dL (Up TO 0.2)
[2019-08-20] MEDS: MAGNESIUM SULFATE 2 GM/50 ML BAG IVPB ×2 (13:23→16:18)
[2019-08-20 13:31] LABS: Bacteria Many HPF (Negative); C & S Indicated? Yes; Casts Negative LPF (Negative); Crystals Negative HPF (Negative); Epithelial Cells Few HPF (Negative); Mucus Negative (Negative); RBC Negative HPF (0-2); WBC 20-50 HPF (0-5)
[2019-08-20 14:42] LABS: INR 1.1 (0.9-1.1)
[2019-08-20 14:43] LABS: Creatine Kinase 20 U/L (26-192)
--- NOTE | 2019-08-20 14:48 | DI.US_ITS ---
APPROVED REPORT EXAM: Comprehensive 2D, Doppler, and color-flow Echocardiogram Patient Location: ER Room/Bed: 4 Duct Layer Supervisor: Apoorva Hsu RDCS (AE) Indications: CHF, A Fib, COPD Other Information Study Quality: Fair. Technically limited study due to inability to position patient. Conclusion Left Ventricle : The left ventricle is normal size. The left ventricular systolic function is normal. The left ventricular ejection fraction is within the normal range. There is normal left ventricular wall thickness. There is normal LV segmental wall motion. Diastolic function is indeterminate though there is evidence of impaired relaxation. LVEF is 50%. Right Ventricle : Right ventricle is mildly dilated. The right ventricular systolic function is medina l. Atria : The left atrium size is normal. Right atrium is mildly dilated. Valves: There are no hemodynamically significant valvular lesions. Great Vessels : The ascending aorta is moderately dilated (3.7cm). The IVC is dilated and collapses < 50% with inspiration. Compared to echocardiogram dated 11/23/2018: Patient's ejection fraction is now low normal. Wall motion Left Ventricle The left ventricle is normal size. The left ventricular systolic function is normal. The left ventric ular ejection fraction is within the normal range. There is normal left ventricular wall thickness. T here is normal LV segmental wall motion. Diastolic function is indeterminate though there is evidence of impaired relaxation. There is no ventricular septal defect visualized. LVEF is 50%. Right Ventricle Right ventricle is mildly dilated. The right ventricular systolic function is normal. Atria The left atrium size is normal. Right atrium is mildly dilated. The interatrial septum is intact with no evidence for an atrial septal defect. Aortic Valve Aortic valve is trileaflet. There is no aortic valvular stenosis. No aortic regurgitation is present. Mitral Valve There is mitral annular calcification. No evidence of mitral valve stenosis. Trace mitral regurgitati on. Tricuspid Valve The tricuspid valve is normal in structure. There is no tricuspid valve stenosis. Mild tricuspid regu rgitation. Pulmonic Valve The pulmonary valve is normal in structure. There is no pulmonic valvular stenosis. There is no pulmo cristy valvular regurgitation. Great Vessels The aortic root is normal in size. The ascending aorta is moderately dilated (3.7cm). The IVC is dila jonathan and collapses <50% with inspiration. Pericardium Trivial circumferential pericardial effusion. Left pleural effusion. 2D Dimensions IVSD d PLAX 0.87 cm F: 0.6-1.0 LV Vol A2C d MOD 57.4 mL LVPW d PLAX 0.92 cm F: 0.6 - 1.0 LV Vol A4C d MOD 65.9 mL LVID d PLAX 4.77 cm F: 3.8 - 5.2 LA vol/ BSA A2C s A-L 32.1 mL/m2 LVDs 3.65 cm F: 2.2 - 3.5 LA Area A2C s MOD 18.86 cm2 Ao Root d 2.80 cm F: 2.7 - 3.3 LV EF A4C MOD 50.0 % RA Area A4C 22.88 cm2 LV EF A2C MOD 50.0 % RA Vol/ BSA A4C s A-L 36.9 mL/m2 LV EF Biplane MOD 49.7 % Ao Asc Diam d 3.78 cm F: 2.3 - 3.1 SV 30.64 mL LV EF Teichholz 46.3 % SV Index 16.15 mL/m2 LVEF (Metcalf's) 49.66 % F: 54 - 74 LV Volume 47.11 mL F: 46 - 106 LV Volume Index 24.92 mL/m2 F: 29 - 61 LV Vol Biplane MOD 61.7 mL FS 23.10 % M-Mode TAPSE 2.25 cm (M/F) >1.7 LV Diastology MV E' medial 0.067 (>0.07 m/s) MV E Vmax 0.73 (0.4-1.3 m/s) LV E/e MED 10.90 (<14) MV E' lateral 0.057 (>0.1 m/s) LV E/e LAT 12.75 (<14) MV E/E' medial 10.91 MV E/E' lateral 12.77 Aortic Valve LVOT Area 3.52 cm2 AoV Area Vmax 2.96 cm2 LVOT Vmax 0.75 m/s AoV Area/ BSA (Vmax) 1.56 cm2/m2 LVOT Mean Vinod. 0.49 m/s SEBASTIAN Mean Vinod. 2.43 cm2 LVOT Peak Grad 2.3 mmHg SEBASTIAN Mean Vinod. Index 1.28 cm2/m2 LVOT Mean Grad 1.1 mmHg LVOT VTI 0.125 m LVOT Diam s 2.10 cm AoV Vmax 0.89 m/s Velocity Ratio 0.84 AoV Mean Vinod. 0.72 m/s AoV Peak Grad 3.2 mmHg LVOT SV 43.98 mL AoV Mean Grad 2.2 mmHg AoV VTI 0.169 m AoV Area VTI 2.60 cm2 AoV Area/ BSA (VTI) 1.37 cm/m2 Mitral Valve MV DT 211 (160-240 msec) MV PHT 61 msec MV Area PHT 3.60 cm2 Pulmonary Valve PV Vmax 0.61 (0.5-1.5 m/s) RVOT Peak Gr. 0.80 mmHg PV Peak Grad 1.5 mmHg RVOT Mean Gr. 0.35 mmHg PV Mean Grad 1.1 mmHg RVOT VTI 0.097 m PV VTI 0.117 m RVOT Vmax 0.45 m/s Tricuspid Valve TR Peak Grad 19.7 mmHg TR Vmax 2.22 m/s RA Pressure 12.00 mmHg RVSP (TR) 27.8 mmHg
[2019-08-20] MEDS: Furosemide 20 MG/2 ML VIAL IVP ×2 (15:02→16:17)
[2019-08-20] MEDS: Thiamine 100 MG TAB PO (15:03)
[2019-08-20 15:21] LABS: Troponin I < 0.05 ng/mL (<0.06)
--- NOTE | 2019-08-20 15:55 | W.PM.HP.N ---
Date of service: 08/20/19 Time of Service: 15:55 Assessment and Plan Assessment and plan (1) Atrial fibrillation with rapid ventricular response: Start date: 08/20/19 Start time: 16:14 Status: Acute Assessment and plan: Noncompliant with diltizem also states she drinks at least a 6 pack of beer a day. Was given cardizem IV on scene with EMS for HR of 150's on arrival to ED HR in low 100's. [place] [facility] [place], echo done today in ED EF 50%, Diastolic function indeterminate. BNP 1526 with SOB and edema will give lasix 20 mg BID, daily wts Diltizem, with IVP lopressor prn for HR greater than 120 [place] (2) Acute exacerbation of CHF (congestive heart failure): Start date: 08/20/19 Start time: 16:20 Status: Acute Assessment and plan: Likely due to Afib and alcohol intoxication. See above (3) Rash: Start date: 08/20/19 Start time: 16:21 Status: Acute Assessment and plan: Consult wound, found on previous admission, appears to be contact dermatitis with pustules. afebrile (4) Alcohol abuse: Start date: 08/20/19 Start time: 16:21 Status: Chronic Assessment and plan: Ethyl alcohol level 176.3 patient states she drinks at least 6 pack alcohol daily, will place on CIWA. Last drink this am. Continue thiamine, folic acid, multivitamin (5) Anxiety: Start date: 08/20/19 Start time: 16:20 Status: Chronic Assessment and plan: Will montior on CIWA and give ativan prn for withdrawal or anxiety (6) Subclinical hypothyroidism: Start date: 08/20/19 Start time: 16:23 Status: Acute Assessment and plan: TSH elevated however T4 normal (7) History of medication noncompliance: Start date: 08/20/19 Start time: 16:23 Status: Acute Assessment and plan: As above has not been taking diltizem for HR (8) Hypomagnesemia: Start date: 08/20/19 Start time: 16:24 Status: Acute Assessment and plan: Will replete with 4 mg magnesium (9) Tobacco abuse: Start date: 08/20/19 Start time: 16:24 Status: Chronic Assessment and plan: Smokes 1/2-1 pack a day of cigarettes will offer nicotine replacement above case discussed with Dr. Chávez who is in agreement. History of Present Illness History of Present Illness Chief Complaint: Afib, Alcohol abuse, anxiety Narrative: This is a 59-year-old female with past medical history significant for atrial fibrillation, medical noncompliance, alcohol abuse, tobacco abuse who presented to the emergency department by EMS for Chest pain and anxiety. EMS did give her 15 mg cardizem for rapid HR of 150 prior to arrival to Emergency Department. She was recently hospitalized for the same on 08/16/2019 and discharged home on 08/17/2019 with follow up for cardiology. She is noncompliant with her diltizem per recent discharge summary she had not taken diltizem in possibly weeks and she admits to not taking it today. She did have an echo as an outpatient today revealing EF 50%, stress in couple weeks per cardiology note. However work up in the ED reveals bnp of 1526, c/o SOB with 2+ pitting edema, mag level 1.5 and ethyl alcohol level 176.3. She has been asked to be admitted to hospitalist service for further management. Review of Systems All systems reviewed & are unremarkable except as noted in HPI and below PFSH Medical History Alcohol abuse (Chronic) Anxiety and depression (Inactive 08/06/14) Atrial fibrillation with rapid ventricular response (Inactive) Opiate addiction (Inactive 08/06/14) in recovery. weaned off suboxone through [facility] 05/05/14 Pulmonary nodules (Inactive) SAH (subarachnoid hemorrhage) (Inactive) Tobacco abuse (Chronic 07/07/17) Surgical History bunionectomy (Inactive) kristy a few years ago 2005ish History of bilateral tubal ligation (Acute) Family History Mother Diabetes Essential hypertension Personal history of malignant neoplasm lung, breast CA Father No problems noted. Sister Essential hypertension Sister No problems noted. Brother No problems noted. Maternal Aunt Personal history of malignant neoplasm breast Social History Smoking/Tobacco Use Status: Current every day Tobacco Type: cigarettes Alcohol Intake: current Alcohol Intake frequency: 3 or more drinks per day Alcohol type: beer Drug use: Never Substance use type: does not use Details: pt reports beer today Household members: significant other Do you feel safe at home: Yes Do you feel safe in your relationship?: Yes Additional Social history: Lives with long-term boyfriend Stepan in [place]. Last work at [employer] but has not worked in years. 2 adult children, including daughter in [place] and son and 2 baby grandkids and [place] Meds Home Medications and Allergies Home Medications Medication Instructions Recorded Confirmed Type cyanocobalamin (vitamin B-12) 1,000 mcg PO DAILY #30 tab 04/18/19 08/20/19 Rx [Vitamin B-12] magnesium oxide 400 mg PO DAILY #30 tab 04/18/19 08/20/19 Rx multivitamin [Multiple Vitamins] 1 tab PO DAILY #30 tab 04/18/19 08/20/19 Rx diltiazem HCl [Cardizem CD] 240 mg PO DAILY 60 Days #60 cap 08/09/19 08/20/19 Rx aspirin 81 mg PO DAILY #0 tab 08/17/19 08/20/19 Rx atorvastatin 40 mg PO DAILY #30 tab 08/17/19 08/20/19 Rx pantoprazole 40 mg PO DAILY #30 tab 08/17/19 08/20/19 Rx Allergies Allergy/AdvReac Type Severity Reaction Status Date / Time No Known Allergies Allergy Unverified 08/20/19 12:02 Exam Narrative Exam Narrative: Const: female that looks older than stated age, appears disheveled with smell of alcohol on her breath. Conversing AAOx3 HENMT: normocephalic, atraumatic Eyes: PERRLA, blood shot with purulent drainage Neck: No JVD, lymphedema Resp: harsh cough at times, smokers cough, lung sounds clear without wheezing or rhonchi, rales Cardio: slightly tachy irregular irregular rhythm GI: BSx4, soft : voided without difficutly Skin: rash to right huynh and ankle with erythema and pustule, skin dry otherwise and scaly bilaterally. Multiple areas of echymosis to right arm and right back, falls multiple times during last couple of months. Neuro: AAOx 3, Extrem: right with rash and +2 edema, left with +2 pitting edema from feet to shins. Psych: anxious lady, cooperative. Results Labs Result diagrams: 08/20/19 11:40 08/20/19 11:40 Labs: Laboratory Results - last 24 hr 08/20/19 08/20/19 08/20/19 11:40 11:40 11:40 WBC 5.74 RBC 3.75 L Hgb 13.5 Hct 38.1 MCV 101.6 H MCH 36.0 H MCHC 35.4 RDW 13.6 Plt Count 203 MPV 10.0 Immature Gran % 0.2 Neutrophils % 62.4 Lymphocytes % 15.3 Monocytes % 19.7 Eosinophils % 1.4 Basophils % 1.0 Absolute Neutrophils 3.58 Absolute Lymphocytes 0.88 L Absolute Monocytes 1.13 H Absolute Eosinophils 0.08 Absolute Basophils 0.06 PT INR D-Dimer Sodium 137 Potassium 3.6 Chloride 102 Carbon Dioxide 23.1 Anion Gap 11.9 H BUN 1 L Creatinine 0.65 Estimated GFR/1.73 m2 >= 60.00 Glucose 100 Calcium 8.7 Magnesium 1.5 L Total Bilirubin 1.5 H AST 109 H ALT 71 H Alkaline Phosphatase 190 H Creatine Kinase Troponin I < 0.05 NT-Pro-B Natriuret Pep 1526 H Total Protein 7.0 Albumin 2.9 L TSH 7.62 H Free T4 0.80 Urine Color Urine Clarity Urine pH Ur Specific [place] Urine Protein Urine Ketones Urine Blood Urine Nitrite Urine Bilirubin Urine Urobilinogen Ur Leukocyte Esterase Urine RBC Urine WBC Ur Epithelial Cells Urine Crystals Urine Bacteria Urine Casts Urine Mucus Ur Culture Indicated? Urine Glucose Ethyl Alcohol 176.3 08/20/19 08/20/19 08/20/19 11:40 11:40 11:40 WBC RBC Hgb Hct MCV MCH MCHC RDW Plt Count MPV Immature Gran % Neutrophils % Lymphocytes % Monocytes % Eosinophils % Basophils % Absolute Neutrophils Absolute Lymphocytes Absolute Monocytes Absolute Eosinophils Absolute Basophils PT 11.0 INR 1.1 D-Dimer 1957 H Sodium Potassium Chloride Carbon Dioxide Anion Gap BUN Creatinine Estimated GFR/1.73 m2 Glucose Calcium Magnesium Total Bilirubin AST ALT Alkaline Phosphatase Creatine Kinase 20 L Troponin I NT-Pro-B Natriuret Pep Total Protein Albumin TSH Free T4 Urine Color Urine Clarity Urine pH Ur Specific [place] Urine Protein Urine Ketones Urine Blood Urine Nitrite Urine Bilirubin Urine Urobilinogen Ur Leukocyte Esterase Urine RBC Urine WBC Ur Epithelial Cells Urine Crystals Urine Bacteria Urine Casts Urine Mucus Ur Culture Indicated? Urine Glucose Ethyl Alcohol 08/20/19 08/20/19 13:05 14:45 WBC RBC Hgb Hct MCV MCH MCHC RDW Plt Count MPV Immature Gran % Neutrophils % Lymphocytes % Monocytes % Eosinophils % Basophils % Absolute Neutrophils Absolute Lymphocytes Absolute Monocytes Absolute Eosinophils Absolute Basophils PT INR D-Dimer Sodium Potassium Chloride Carbon Dioxide Anion Gap BUN Creatinine Estimated GFR/1.73 m2 Glucose Calcium Magnesium Total Bilirubin AST ALT Alkaline Phosphatase Creatine Kinase Troponin I < 0.05 NT-Pro-B Natriuret Pep Total Protein Albumin TSH Free T4 Urine Color Yellow Urine Clarity Clear Urine pH 6.0 Ur Specific [place] <= 1.005 Urine Protein Negative Urine Ketones Negative Urine Blood Negative Urine Nitrite Negative Urine Bilirubin Negative Urine Urobilinogen 0.2 Ur Leukocyte Esterase Small H Urine RBC Negative Urine WBC 20-50 H Ur Epithelial Cells Few Urine Crystals Negative Urine Bacteria Many Urine Casts Negative Urine Mucus Negative Ur Culture Indicated? Yes Urine Glucose Negative Ethyl Alcohol Last Vital Signs Temp 35.9 C L 08/20/19 15:29 Pulse 103 H 08/20/19 15:29 Resp 22 08/20/19 15:29 BP 133/83 08/20/19 15:29 Pulse Ox 93 L 08/20/19 15:29 COVID-19 Screening In the past 14 days, have you traveled outside of [place]?: NO Had IN PERSON contact w/suspected or confirmed C-19 person: Yes
[2019-08-20] MEDS: LORazepam 1 MG TAB PO/SL ×2 (16:18→21:10)
[2019-08-20] MEDS: Enoxaparin 40 MG/0.4 ML SYR SC (16:19)
[2019-08-20] MEDS: dilTIAZem 60 MG TAB PO ×2 (17:25→23:48)
[2019-08-21 00:29] VITALS: BP 100/63; PULSE 80; RESP 17; TEMP 37.1; O2SAT 96
[2019-08-21 01:08] LABS: Troponin I < 0.05 ng/mL (<0.06)
[2019-08-21] MEDS: Acetaminophen 325 MG TAB PO (01:27)
[2019-08-21 04:09] VITALS: BP 110/77; PULSE 84; RESP 17; TEMP 36.8; O2SAT 95
[2019-08-21] MEDS: dilTIAZem 60 MG TAB PO (06:04)
[2019-08-21] MEDS: LORazepam 1 MG TAB PO/SL (06:07)
[2019-08-21 07:34] LABS: Abs Immature Grans 0.01 k/cumm (0.0-0.09); Absolute Basophil Count 0.06 k/cumm (0.0-0.2); Absolute Eosinophil Count 0.05 k/cumm (0.0-0.7); Absolute Lymphocyte Count 0.64 k/cumm (1.2-3.4); Absolute Monocyte Count 0.78 k/cumm (0.11-0.7); Absolute Neutrophil Count 3.14 k/cumm (1.2-6.7); Basophils % 1.3; Eosinophils % 1.1; Immature Grans % 0.2 %; Lymphocytes % 13.7; Mean Corp. HGB Concentration 35.9 g/dL (32.0-36.0); Mean Corpuscular Hemoglobin 35.9 pg (27.0-33.0); Mean Platelet Volume 9.9 fL (8.0-11.0); Monocytes % 16.7; Platelet Count 204 x1000/uL (130-400); RBC Distribution Width 13.4 % (11.7-14.6); White Blood Cell Count 4.68 k/cumm (4.4-10.8)
[2019-08-21 08:08] VITALS: BP 100/68; PULSE 87; RESP 20; TEMP 37; O2SAT 94
[2019-08-21 08:23] LABS: Anion Gap 8.8 mmol/L (3-11); BUN 3 mg/dL (7-18); CO2 28.2 mmol/L (21.0-32.0); CREATININE 0.76 mg/dL (0.55-1.02); Calcium 8.3 mg/dL (8.5-10.1); Calculated LDL 65 mg/dL (<100); Chloride 99 mmol/L (98-107); Cholesterol 106 mg/dL (<200); Folate 15.1 ng/mL (8.6-20.0); Glucose 87 mg/dL (74-106); HDL Cholesterol 28 mg/dL (40-60); Magnesium 1.8 mg/dL (1.8-2.4); Potassium 3.1 mmol/L (3.5-5.1); Sodium 136 mmol/L (136-145); Triglyceride 68 mg/dL (<150); Vitamin B12 939 pg/mL (193-986)
[2019-08-21 08:34] LABS: COVID-19 RT-PCR UVMMC Result Negative (Negative)
[2019-08-21] MEDS: Docusate Sodium 100 MG CAP PO (09:23)
[2019-08-21] MEDS: dilTIAZem CD 120 MG CAPCR 240 MG PO (09:23)
[2019-08-21] MEDS: Cyanocobalamin 500 MCG TAB 1000 MCG PO (09:24)
[2019-08-21] MEDS: Thiamine 100 MG TAB PO (09:24)
[2019-08-21] MEDS: Magnesium Oxide 400 MG TAB PO (09:24)
[2019-08-21] MEDS: Aspirin E.C. 81 MG TABEC PO (09:24)
[2019-08-21] MEDS: Folic Acid 1 MG TAB PO (09:24)
[2019-08-21] MEDS: Potassium Chloride 20 MEQ TABCR PO ×2 (09:24→13:29)
[2019-08-21] MEDS: Atorvastatin 40 MG TAB PO (09:25)
[2019-08-21] MEDS: Omeprazole 20 MG CAPCR PO (09:25)
[2019-08-21] MEDS: Furosemide 20 MG/2 ML VIAL IVP ×2 (09:26→15:34)
[2019-08-21] MEDS: Normal Saline Flush 10 ML SYR IVP ×2 (09:28→15:35)
[2019-08-21] MEDS: Multivitamin TAB 1 TAB PO (09:54)
--- NOTE | 2019-08-21 10:15 | WOUNDCONS ---
- If Service Date Differs Date of service: 08/21/19 Time of Service: 10:15 Wound Initial Evaluation Narrative: wound consult preformed by Deacon Wright on 08/16/19 during Patient's last inpatient visit. I assessed Pt's skin infection on LE's and they look improved, decreased redness and pustules since 08/16/19. Considering it hasn't even been a week since initial consult I recommend following current treatment plan implemented by PAULA Gil. AMADO Leon would like to start 10 days of Mupirocin BID, TODAY. Recommend d/c Ointment after 10 days, 08/31/19. Thank you for the consult. - Recomendation Recomendation:: Continue wound care from consult done on 08/16/19. Cleanse wound w/soap & warm water, dry. Apply mupirocin to affected area on bilateral LE's, thin layer. Cover wound w/Telfa pads, wrap w/kerlix, secure with tape. Change BID. Discontinue Mupirocin & wound care after 10 days, on 08/31/19.
[2019-08-21 11:39] VITALS: BP 106/78; PULSE 93; RESP 19; TEMP 36.9; O2SAT 95
[2019-08-21] MEDS: Enoxaparin 40 MG/0.4 ML SYR SC (15:35)
--- NOTE | 2019-08-21 16:11 | DSE_ITS ---
Date of service: 08/21/19 Time of Service: 16:11 DS: Diagnosis Discharge Diagnosis (1) Atrial fibrillation with rapid ventricular response: Status: Acute (2) Acute exacerbation of CHF (congestive heart failure): Status: Acute (3) Rash: Status: Acute (4) Alcohol abuse: Status: Chronic (5) Anxiety: Status: Chronic (6) Subclinical hypothyroidism: Status: Acute (7) History of medication noncompliance: Status: Acute (8) Hypomagnesemia: Status: Acute (9) Tobacco abuse: Status: Chronic Discharge Plan Disposition Patient Disposition: HOME Condition: Improving Discharge Details Chief Complaint: SOB Reason For Visit: AFIB WITH RVR, RATE-DEPENDENT CHF Admit Date/Time: 08/20/19 14:16 Admit Provider: Amy Chávez Attending Provider: Amy Chávez Primary Care Provider: Amarilys Barrera ED Provider: Trish Reeder [facility] Course Hospital Course: This is a 59-year-old female with past medical history significant for atrial fibrillation, medical noncompliance, alcohol abuse, tobacco abuse who presented to the emergency department by EMS for Chest pain and anxiety. EMS did give her 15 mg cardizem for rapid HR of 150 prior to arrival to Emergency Department. She was recently hospitalized for the same on 08/16/2019 and discharged home on 08/17/2019 with follow up for cardiology. She is noncompliant with her diltizem per recent discharge summary she had not taken diltizem in possibly weeks and she admits to not having it filled from pharmacy after last discharge. She did have an echo as an outpatient revealing EF 50%, stress is scheduled in couple weeks per cardiology note. However work up in the ED reveals bnp of 1526, c/o SOB with 2+ pitting edema, mag level 1.5 and ethyl alcohol level 176.3. She was admitted to hospitalist service for further management. she received lasix with good diuresis. she was started on her cardizem at 240 mg, her rate is now controlled in the 80's. case management was able to obtain her prescription from the pharmacy. she declines any outpatient services or rehabilitation, she is not interested in stopping etoh. she is medically stable and is safe for discharge to home. case and discharge plan discussed with dr Chávez who is in agreement. Home Meds and New Rx's Prescriptions: Continued diltiazem HCl [Cardizem CD] 240 mg capsule,extended release 24hr 240 mg PO DAILY 60 Days Qty: 60 RF: 2 multivitamin [Multiple Vitamins] Tablet 1 tab PO DAILY Qty: 30 RF: 3 magnesium oxide 400 mg (241.3 mg magnesium) tablet 400 mg PO DAILY Qty: 30 RF: 3 cyanocobalamin (vitamin B-12) [Vitamin B-12] 500 mcg Tablet 1,000 mcg PO DAILY Qty: 30 RF: 3 aspirin 81 mg Tablet,Delayed Release (Dr/Ec) 81 mg PO DAILY Qty: 0 RF: 0 atorvastatin 40 mg tablet 40 mg PO DAILY Qty: 30 RF: 0 pantoprazole 40 mg tablet,delayed release (DR/EC) 40 mg PO DAILY Qty: 30 RF: 0 Discharge Instructions Instructions: A-fib (Atrial Fibrillation) (DC) Additional Instructions: refrain from alcohol use. take all medications as directed. Referrals: Amarilys Barrera HEAD WAITER/WAITRESS [Primary Care Provider] - Activity:: Activity as Tolerated Equipment/Supplies:: No Equipment Needed Diet:: As Tolerated Discharge Orders Discharge Orders: Discharge Order (Routine); Ordered 08/21/19 Ordered By: Ruby Leon DS: Summary Status at Discharge Functional status at discharge: independent ambulation Overall status at discharge: patient is progressing back to baseline Mental Status: mental status grossly normal Speech and Movement: speech and movement normal Mood: congruent mood Affect: normal affect Exam Const General: cooperative, no acute distress, disheveled and ill appearing chroni nathaly Nutritional Appearance: overweight Orientation: alert, awake and oriented x3 HENMT Head: normal to inspection, normocephalic and atraumatic Mouth: oral mucosae normal Eyes Conjunctivae: conjunctivae normal Sclera: sclerae normal and scleral abnormality Cardio Rhythm: abnormal rhythm (controlled afib on the monitor) GI Palpation: soft Auscultation: normal bowel sounds Skin Rashes: rashes noted (right lower extremity, red, dermatits improved) Neuro General: patient alert, patient awake and patient oriented x3 Psych Mental Status: mental status grossly normal Speech and Movement: speech and movement normal Mood: congruent mood Affect: normal affect DS: Data Vitals/I&O Vitals and I&O: Vital Signs Temperature 36.9 C 08/21/19 11:39 Temperature Source Tympanic 08/21/19 11:39 Pulse 93 H 08/21/19 11:39 Pulse Rhythm Regular 08/21/19 07:15 Pulse 118 H 08/20/19 15:01 Respiratory Rate 19 08/21/19 11:39 Respiratory Effort Non-Labored 08/21/19 07:15 Respiratory Depth Normal 08/21/19 07:15 Respiratory Pattern Normal 08/21/19 07:15 Blood Pressure 106/78 08/21/19 11:39 Blood Pressure Mean 94 08/20/19 15:00 Blood Pressure Position Sitting 08/20/19 11:56 Pulse Oximetry 95 08/21/19 11:39 Oxygen Delivery Method Room Air 08/21/19 11:39 Oxygen Flow Rate 0 08/21/19 11:39 Pain Level 2 08/21/19 11:39 Comment 08/20/19 11:56 Intake & Output 08/20/19 08/21/19 08/21/19 23:59 11:59 23:59 Intake Total 260 / 260 570 / 810 240 / 810 Output Total 4000 / 4000 1300 / 1300 Balance -3740 / -3740 -730 / -490 240 / -490 Weight 76.204 kg 67.1 kg Intake: IV Oral 250 / 250 550 / 790 240 / 790 Output: Urine 4000 / 4000 1300 / 1300 Other: Urine Color Pale Yellow Urine Appearance Clear Clear Voiding Methods Toilet Bedside Commode Data Completed and Pending Labs on day of discharge: Labs from last 24 hours 08/21/19 08/21/19 08/21/19 07:10 07:10 00:15 WBC 4.68 RBC 3.90 L Hgb 14.0 Hct 39.0 MCV 100.0 H MCH 35.9 H MCHC 35.9 RDW 13.4 Plt Count 204 MPV 9.9 Immature Gran % 0.2 Neutrophils % 67.0 Lymphocytes % 13.7 Monocytes % 16.7 Eosinophils % 1.1 Basophils % 1.3 Absolute Neutrophils 3.14 Absolute Lymphocytes 0.64 L Absolute Monocytes 0.78 H Absolute Eosinophils 0.05 Absolute Basophils 0.06 Sodium 136 Potassium 3.1 L Chloride 99 Carbon Dioxide 28.2 Anion Gap 8.8 BUN 3 L Creatinine 0.76 Estimated GFR/1.73 m2 >= 60.00 Glucose 87 Calcium 8.3 L Magnesium 1.8 Troponin I < 0.05 Triglycerides 68 Total Cholesterol 106 LDL Cholesterol, Calc 65 HDL Cholesterol 28 L Vitamin B12 939 Folate 15.1 COVID-19 PCR Nasopharyn COVID-19 PCR Ref Test Perform Site 08/20/19 14:48 WBC RBC Hgb Hct MCV MCH MCHC RDW Plt Count MPV Immature Gran % Neutrophils % Lymphocytes % Monocytes % Eosinophils % Basophils % Absolute Neutrophils Absolute Lymphocytes Absolute Monocytes Absolute Eosinophils Absolute Basophils Sodium Potassium Chloride Carbon Dioxide Anion Gap BUN Creatinine Estimated GFR/1.73 m2 Glucose Calcium Magnesium Troponin I Triglycerides Total Cholesterol LDL Cholesterol, Calc HDL Cholesterol Vitamin B12 Folate COVID-19 PCR Negative Nasopharyn COVID-19 PCR Not Applicable Ref Test Perform Site [place] [facility] Preliminary micro results at discharge 08/20/19 13:05 Urine Culture - Preliminary Urine - Reflex from Ua Gram Negative Júnior Gram Positive Bria,Mixed PFSH Medical History Alcohol abuse (Chronic) Anxiety and depression (Inactive 08/06/14) Atrial fibrillation with rapid ventricular response (Inactive) Opiate addiction (Inactive 08/06/14) in recovery. weaned off suboxone through [facility] 05/05/14 Pulmonary nodules (Inactive) SAH (subarachnoid hemorrhage) (Inactive) Tobacco abuse (Chronic 07/07/17) Surgical History bunionectomy (Inactive) [place] a few years ago 2005ish History of bilateral tubal ligation (Acute) Family History Mother Diabetes Essential hypertension Personal history of malignant neoplasm lung, breast CA Father No problems noted. Sister Essential hypertension Sister No problems noted. Brother No problems noted. Maternal Aunt Personal history of malignant neoplasm breast Social History Smoking/Tobacco Use Status: Current every day Tobacco Type: cigarettes Alcohol Intake: current Alcohol Intake frequency: 3 or more drinks per day Alcohol type: beer Drug use: Never Substance use type: does not use Details: pt reports beer today Household members: significant other Do you feel safe at home: Yes Do you feel safe in your relationship?: Yes Additional Social history: Lives with long-term boyfriend Stepan in [place]. Last work at [employer] but has not worked in years. 2 adult children, including daughter in [place] and son and 2 baby grandkids and [place]
[2019-08-21 16:17] VITALS: BP 91/61; PULSE 97; RESP 18; TEMP 37.4; O2SAT 94
--- NOTE | 2019-08-21 17:16 | PDOC.CMPRO ---
Care Management Progress Note Shantel reportedly was re-admitted due to not retrieving her prescriptions. CM retrieved Shantel's prescriptions and provided them to her, as well as setting up RCT for transport home. Shantel shared no additional concerns, and only verbalized wanting to return home.
== END 2019-08-21 17:37 | disposition home or self-care (01) ==
LOC: ER 12:12 → MS 15:35
PROVIDERS: Admitting Provider Internal Medicine; Emergency Provider Student in an Organized Health Care Education/Training Program; PCP Nurse Practitioner; Visit Provider Internal Medicine
DX: I50.9 Heart failure, unspecified (principal); I48.91 Unspecified atrial fibrillation; F10.10 Alcohol abuse, uncomplicated; F11.21 Opioid dependence, in remission; F17.210 Nicotine dependence, cigarettes, uncomplicated; T46.1X6A Underdosing of calcium-channel blockers, initial encounter; L25.9 Unspecified contact dermatitis, unspecified cause; F41.9 Anxiety disorder, unspecified; E03.9 Hypothyroidism, unspecified; E83.42 Hypomagnesemia
CPT/HCPCS: 36415; 80048; 80053; 80061; 82550; 87077; 93005; 93306; 96365; 96366; 99217; 99223; 99285; J1650; U0003; 71045; 80320; 81003; 81015; 82607; 82746; 83735; 83880; 84439; 84443; 84484; 85025; 85379; 85610; 87086; 87186; 93010; 99220; G0378; J1941

== ENCOUNTER 2019-08-22 09:01 | Emergency (ER) | payer OTHER, SELFPAY ==
[2019-08-22] VITALS (40 sets, daily range): BP systolic 75–118; BP diastolic 48–76; PULSE 58–118; RESP 16–35; TEMP 36.6–36.8; O2SAT 91–98
[2019-08-22 09:25] LABS: Abs Immature Grans 0.01 k/cumm (0.0-0.09); Absolute Basophil Count 0.03 k/cumm (0.0-0.2); Absolute Eosinophil Count 0.06 k/cumm (0.0-0.7); Absolute Lymphocyte Count 1.17 k/cumm (1.2-3.4); Absolute Monocyte Count 0.99 k/cumm (0.11-0.7); Absolute Neutrophil Count 3.85 k/cumm (1.2-6.7); Basophils % 0.5; HCT 35.7 % (36.0-46.0); HGB 13.1 g/dL (12.0-15.5); Immature Grans % 0.2 %; Lymphocytes % 19.1; Mean Corp. HGB Concentration 36.7 g/dL (32.0-36.0); Mean Corpuscular Hemoglobin 36.6 pg (27.0-33.0); Mean Corpuscular Volume 99.7 fL (80-95); Mean Platelet Volume 10.3 fL (8.0-11.0); Monocytes % 16.2; Platelet Count 225 x1000/uL (130-400); RBC 3.58 m/cumm (4.00-5.20); RBC Distribution Width 12.9 % (11.7-14.6); White Blood Cell Count 6.11 k/cumm (4.4-10.8)
[2019-08-22 09:32] LABS: ETHANOL BLOOD 106.7 mg/dL (<3)
--- NOTE | 2019-08-22 09:37 | W.ED.GENAD ---
Discharge Plan Disposition Patient Disposition: HOME Condition: Stable Discharge Details Chief Complaint: Chest Pain Clinical Impression: Atrial fibrillation, Alcohol abuse, Chest pain, Noncompliance with medications, Cough Primary Care Provider: Amarilys Barrera ED Provider: Cristine Marquis Home Meds and New Rx's Prescriptions: New doxycycline hyclate 100 mg tablet 100 mg PO BID 6 Days Qty: 12 RF: 0 Continued diltiazem HCl [Cardizem CD] 240 mg capsule,extended release 24hr 240 mg PO DAILY 60 Days Qty: 60 RF: 2 multivitamin [Multiple Vitamins] Tablet 1 tab PO DAILY Qty: 30 RF: 3 magnesium oxide 400 mg (241.3 mg magnesium) tablet 400 mg PO DAILY Qty: 30 RF: 3 cyanocobalamin (vitamin B-12) [Vitamin B-12] 500 mcg Tablet 1,000 mcg PO DAILY Qty: 30 RF: 3 aspirin 81 mg Tablet,Delayed Release (Dr/Ec) 81 mg PO DAILY Qty: 0 RF: 0 atorvastatin 40 mg tablet 40 mg PO DAILY Qty: 30 RF: 0 pantoprazole 40 mg tablet,delayed release (DR/EC) 40 mg PO DAILY Qty: 30 RF: 0 Discharge Instructions Instructions: A-fib (Atrial Fibrillation) (ED), Chest Pain (ED), Abuse of Alcohol (ED), Acute Cough (ED) Additional Instructions: Please take your regular medications as directed. Drink plenty of fluids and get plenty of rest. Home health will evaluate at home to assess your home situation and help you manage her medications. Follow-up with your primary care doctor in 1 week. Return to the emergency department with any worsening or new concerning symptoms. Discharge Data Discharge Physician: Cristine Marquis Medical Decision Making [id number] -- 59-year-old female with a history of anxiety, depression, atrial fibrillation, subarachnoid hemorrhage, previous opioid addiction, and daily alcohol abuse who presents for intermittent chest tightness for the past 3 weeks, worse today. EMS noted heart rate 170s on arrival to residence and patient was given 10 mg of diltiazem and 3 nitro in route with some improvement. Heart rate low 100s and BP now hypotensive 80s/50s on arrival to ED. Lungs clear. EKG notes a rate of 106, atrial fibrillation with less than [address] depression in V5 and V6. No acute ST elevation. Differential diagnosis includes ACS, A. fib with RVR, electrolyte abnormality, PE, pneumonia. Placed in ED, labs, CT chest to rule out PE and reassess. Labs and imaging reviewed. Normal white blood cell count. INR 1.2. Potassium 2.9. Lactate 1.2. Magnesium 1.5. Troponin negative. Alcohol 106. CT chest notes minimal bilateral groundglass opacities, consider borderline CHF, possible minimal infectious process. As patient has report of cough with yellow sputum and current smoker, will treat with antibiotics. Patient reassessed and she denies any pain. We will plan for repeat troponin and EKG. 1430 -- Repeat troponin negative and EKG notes a rate of [address] depression or elevation. This is patient's sixth visit to the ED in the last month for alcohol or chest pain related complaints. Case discussed with hospitalist team who knows her well. She was discharged from here yesterday for atrial fibrillation with RVR, and medication noncompliance with her Cardizem. It was reported that care management staff have actually paid for her prescriptions in the past, and care management personally went to the pharmacy yesterday and picked up her prescription for her Cardizem. Patient did not take her Cardizem today. As patient's heart rate has remained within normal limits and she is currently chest pain-free, I feel that she is appropriate for discharge to home. She has been arranged for home health for nursing care to assist with medication as well as social work to assess her home situation. Vitals remained within normal limits. No signs of acute alcohol withdrawal. Medical Records Medical records reviewed: Yes I reviewed the patient's medical records. Imaging Data Radiologic Study: Radiologist's impression: CT CHEST PE CTA CLINICAL HISTORY: chest tightness, tachycardia, r/o PE TECHNIQUE: COMPARISON: CT CT CHEST PE ABD PELVIS W from 08/16/2019 FINDINGS: CT angiography of the chest was performed with bolus infusion 1 high cc of Omnipaque 350. Images obtained through the upper hepatic steatosis unremarkable appearance visualized portions of pancreas spleen adrenals kidneys. There is no evidence of pulmonary embolic disease. Thoracic aorta not ideally opacified but grossly unremarkable. No mediastinal or hilar adenopathy. There is mild cardiomegaly. No pericardial effusion. There is a small left pleural effusion. There are areas of atelectasis in the dependent portions of both lungs in the lung bases. No focal consolidation although a few minimal areas of ground-glass opacity are noted anteriorly bilaterally. There appear to be mild changes of COPD. IMPRESSION: No evidence of pulmonary embolic disease. Mild cardiomegaly and left pleural effusion noted. Minimal bilateral ground-glass opacities noted, consider borderline CHF, minimal infectious process not excluded. No gross consolidation seen. Lab Data Lab results reviewed: Yes I reviewed the patient's lab results. Labs: Laboratory Tests Range/Units 08/22/19 08/22/19 08/22/19 09:14 09:14 09:14 WBC (4.4-10.8) k/cumm 6.11 D RBC (4.00-5.20) m/cumm 3.58 L Hgb (12.0-15.5) g/dL 13.1 Hct (36.0-46.0) % 35.7 L MCV (80-95) fL 99.7 H MCH (27.0-33.0) pg 36.6 H MCHC (32.0-36.0) g/dL 36.7 H RDW (11.7-14.6) % 12.9 Plt Count (130-400) x1000/uL 225 MPV (8.0-11.0) fL 10.3 Immature Gran % % 0.2 Neutrophils % 63.0 Lymphocytes % 19.1 Monocytes % 16.2 Eosinophils % 1.0 Basophils % 0.5 Absolute Neutrophils (1.2-6.7) k/cumm 3.85 Absolute Lymphocytes (1.2-3.4) k/cumm 1.17 L Absolute Monocytes (0.11-0.7) k/cumm 0.99 H Absolute Eosinophils (0.0-0.7) k/cumm 0.06 Absolute Basophils (0.0-0.2) k/cumm 0.03 Differential Comment Rbc morph reviewed RBC Morphology See below Macrocytosis 1+ PT (9.3-11.0) sec 11.9 H INR (0.9-1.1) 1.2 H APTT (21.0-31.4) sec 27.1 Sodium (136-145) mmol/L 131 L Potassium (3.5-5.1) mmol/L 2.9 L* Chloride (98-107) mmol/L 95 L Carbon Dioxide (21.0-32.0) mmol/L 24.2 Anion Gap (3-11) mmol/L 11.8 H BUN (7-18) mg/dL 4 L Creatinine (0.55-1.02) mg/dL 0.89 Estimated GFR/1.73 m2 (mL/min/1.73m2) >= 60.00 Glucose (74-106) mg/dL 93 Lactate (0.6-1.4) mmol/L Calcium (8.5-10.1) mg/dL 8.3 L Magnesium (1.8-2.4) mg/dL 1.5 L Total Bilirubin (0.2-1.0) mg/dL 1.5 H AST (15-37) U/L 93 H ALT (14-59) U/L 59 Alkaline Phosphatase (46-116) U/L 172 H Troponin I (<0.06) ng/mL < 0.05 NT-Pro-B Natriuret Pep (<300) pg/mL Total Protein (6.4-8.2) g/dL 6.9 Albumin (3.4-5.0) g/dL 2.9 L Ethyl Alcohol (<3) mg/dL Range/Units 08/22/19 08/22/19 08/22/19 09:14 13:13 13:13 WBC (4.4-10.8) k/cumm RBC (4.00-5.20) m/cumm Hgb (12.0-15.5) g/dL Hct (36.0-46.0) % MCV (80-95) fL MCH (27.0-33.0) pg MCHC (32.0-36.0) g/dL RDW (11.7-14.6) % Plt Count (130-400) x1000/uL MPV (8.0-11.0) fL Immature Gran % % Neutrophils % Lymphocytes % Monocytes % Eosinophils % Basophils % Absolute Neutrophils (1.2-6.7) k/cumm Absolute Lymphocytes (1.2-3.4) k/cumm Absolute Monocytes (0.11-0.7) k/cumm Absolute Eosinophils (0.0-0.7) k/cumm Absolute Basophils (0.0-0.2) k/cumm Differential Comment RBC Morphology Macrocytosis PT (9.3-11.0) sec INR (0.9-1.1) APTT (21.0-31.4) sec Sodium (136-145) mmol/L Potassium (3.5-5.1) mmol/L Chloride (98-107) mmol/L Carbon Dioxide (21.0-32.0) mmol/L Anion Gap (3-11) mmol/L BUN (7-18) mg/dL Creatinine (0.55-1.02) mg/dL Estimated GFR/1.73 m2 (mL/min/1.73m2) Glucose (74-106) mg/dL Lactate (0.6-1.4) mmol/L 1.2 Calcium (8.5-10.1) mg/dL Magnesium (1.8-2.4) mg/dL Total Bilirubin (0.2-1.0) mg/dL AST (15-37) U/L ALT (14-59) U/L Alkaline Phosphatase (46-116) U/L Troponin I (<0.06) ng/mL NT-Pro-B Natriuret Pep (<300) pg/mL 362 H Total Protein (6.4-8.2) g/dL Albumin (3.4-5.0) g/dL Ethyl Alcohol (<3) mg/dL 106.7 Range/Units 08/22/19 08/22/19 14:02 16:45 WBC (4.4-10.8) k/cumm RBC (4.00-5.20) m/cumm Hgb (12.0-15.5) g/dL Hct (36.0-46.0) % MCV (80-95) fL MCH (27.0-33.0) pg MCHC (32.0-36.0) g/dL RDW (11.7-14.6) % Plt Count (130-400) x1000/uL MPV (8.0-11.0) fL Immature Gran % % Neutrophils % Lymphocytes % Monocytes % Eosinophils % Basophils % Absolute Neutrophils (1.2-6.7) k/cumm Absolute Lymphocytes (1.2-3.4) k/cumm Absolute Monocytes (0.11-0.7) k/cumm Absolute Eosinophils (0.0-0.7) k/cumm Absolute Basophils (0.0-0.2) k/cumm Differential Comment RBC Morphology Macrocytosis PT (9.3-11.0) sec INR (0.9-1.1) APTT (21.0-31.4) sec Sodium (136-145) mmol/L Potassium (3.5-5.1) mmol/L Chloride (98-107) mmol/L Carbon Dioxide (21.0-32.0) mmol/L Anion Gap (3-11) mmol/L BUN (7-18) mg/dL Creatinine (0.55-1.02) mg/dL Estimated GFR/1.73 m2 (mL/min/1.73m2) Glucose (74-106) mg/dL Lactate (0.6-1.4) mmol/L Calcium (8.5-10.1) mg/dL Magnesium (1.8-2.4) mg/dL Total Bilirubin (0.2-1.0) mg/dL AST (15-37) U/L ALT (14-59) U/L Alkaline Phosphatase (46-116) U/L Troponin I (<0.06) ng/mL < 0.05 Cancelled NT-Pro-B Natriuret Pep (<300) pg/mL Total Protein (6.4-8.2) g/dL Albumin (3.4-5.0) g/dL Ethyl Alcohol (<3) mg/dL ECG Data Attestation: I personally reviewed and interpreted this ECG (s) as follows: Interpretation: #1 -- Rate of 106, atrial fibrillation, then [address] depression noted in V5 V6. No acute ST elevation. QTc 449. QRS 90. #2 -- Rate of 71, atrial fibrillation, no acute ST elevation or depression. QTc 454. QRS 88. HPI General Mode of arrival: EMS. Date/Time Provider Initiated Documentation: 08/22/19 09:38. Limitations to Documentation: no limitations. Information obtained by: patient and EMS. HPI Narrative: Patient is a 59-year-old female with a history of anxiety and depression, atrial fibrillation, daily alcohol abuse, subarachnoid hemorrhage who presents with intermittent chest tightness for the past 3 to 4 weeks, progressively worse today. She admits to intermittent shortness of breath and nausea but denies any dizziness, vomiting, abdominal pain. She denies any known injury. She does admit to a cough that is productive of yellow sputum. She denies any recent fever, recent travel, recent antibiotics. She states she has been taking her regular medications as directed and last took her diltiazem yesterday. Heart rate 170s and in atrial fibrillation per EMS and she was given 10 mg of diltiazem and 3 tabs of nitro in route. She admits to some improvement of chest tightness and states her pain is currently 6/10. She states she drinks 4 beers daily and that her last beer was this morning. She denies any drug use. Related Data Home Medications Medication Instructions Recorded Confirmed cyanocobalamin (vitamin B-12) 1,000 mcg PO DAILY #30 tab 04/18/19 08/20/19 [Vitamin B-12] magnesium oxide 400 mg PO DAILY #30 tab 04/18/19 08/20/19 multivitamin [Multiple Vitamins] 1 tab PO DAILY #30 tab 04/18/19 08/20/19 diltiazem HCl [Cardizem CD] 240 mg PO DAILY 60 Days #60 cap 08/09/19 08/20/19 aspirin 81 mg PO DAILY #0 tab 08/17/19 08/20/19 atorvastatin 40 mg PO DAILY #30 tab 08/17/19 08/20/19 pantoprazole 40 mg PO DAILY #30 tab 08/17/19 08/20/19 doxycycline hyclate 100 mg PO BID 6 Days #12 tab 08/22/19 Previous Rx's Medication Instructions Recorded cyanocobalamin (vitamin B-12) 1,000 mcg PO DAILY #30 tab 04/18/19 [Vitamin B-12] magnesium oxide 400 mg PO DAILY #30 tab 04/18/19 multivitamin [Multiple Vitamins] 1 tab PO DAILY #30 tab 04/18/19 diltiazem HCl [Cardizem CD] 240 mg PO DAILY 60 Days #60 cap 08/09/19 aspirin 81 mg PO DAILY #0 tab 08/17/19 atorvastatin 40 mg PO DAILY #30 tab 08/17/19 pantoprazole 40 mg PO DAILY #30 tab 08/17/19 doxycycline hyclate 100 mg PO BID 6 Days #12 tab 08/22/19 Allergies Allergy/AdvReac Type Severity Reaction Status Date / Time No Known Allergies Allergy Unverified 08/22/19 09:19 General Stated Complaint: Chest Pain DANNY: 2 Review of Systems All systems reviewed & are unremarkable except as noted in HPI and below Constitutional Constitutional: Reports as per HPI, Denies chills and Denies fever(s) Eyes Eyes: Denies blurry vision ENT Ears, Nose, Mouth, and Throat: Denies dizziness, Denies sore throat and Denies throat swelling Cardiovascular Cardiovascular: Reports chest pain and Denies dyspnea Respiratory Respiratory: Denies cough and Denies dyspnea Gastrointestinal Gastrointestinal: Denies abdominal pain, Denies diarrhea and Denies vomiting Genitourinary Genitourinary: Denies hematuria and Denies dysuria Musculoskeletal Musculoskeletal: Denies back pain and Denies numbness Integumentary/Breasts Skin/Breast: Denies lesions and Denies rash Neurologic Neurologic: Denies dizziness, Denies localized weakness and Denies numbness Allergic/Immunologic Allergic/Immunologic: Denies throat swelling [facility] Social History Smoking/Tobacco Use Status: Current every day Tobacco Type: cigarettes Alcohol Intake: current Alcohol Intake frequency: 3 or more drinks per day Alcohol type: beer Drug use: Never Substance use type: does not use Details: Pt reports beer today. Household members: significant other Do you feel safe at home: Yes Do you feel safe in your relationship?: Yes Additional Social history: Lives with long-term boyfriend Stepan in [place]. Last work at [employer] but has not worked in years. 2 adult children, including daughter in [place] and son and 2 baby grandkids and [place] Exam Const General: cooperative, healthy appearing and no acute distress HENMT Head: normal to inspection Face and sinus: normal facial exam Eyes General: appearance normal, both eyes and all related structures EOM: EOM intact bilaterally Neck Neck: normal visual inspection and No submandibular swelling Lymphatic: no lymphadenopathy noted Chest Chest: normal inspection of the chest and no tenderness Resp Effort & Inspection: normal respiratory effort and able to speak in complete sentences Auscultation: clear to auscultation bilaterally Cardio Rate: regular rate Rhythm: regular rhythm GI Inspection: normal to inspection Palpation: soft, not firm, not rigid and nontender Auscultation: normal bowel sounds Skin General skin exam: no rashes or lesions noted Neuro General: patient alert, patient awake and patient oriented x3 Cognition: normal cognition Speech: speech normal Motor: muscle tone normal throughout Sensory Exam: no sensory deficits noted Extrem General: full ROM, capillary refill normal, no calf tenderness bilaterally and edema (Less than 1+ lower extremities bilaterally) Psych Appearance: grossly normal Mental Status: mental status grossly normal Speech and Movement: speech and movement normal Affect: normal affect Course Vital Signs Vital signs: Vital Signs Temperature 98.1 F 08/22/19 09:05 Pulse 103 H 08/22/19 09:05 Respiratory Rate 24 08/22/19 09:05 Blood Pressure 75/48 L 08/22/19 09:05 Pulse Oximetry 94 L 08/22/19 09:05 Temperature 98.1 F 08/22/19 09:05 Temperature Source Skin 08/22/19 09:05 Pulse 103 H 08/22/19 09:05 Respiratory Rate 16 08/22/19 09:21 Respiratory Effort Non-Labored 08/22/19 09:21 Respiratory Depth Normal 08/22/19 09:21 Respiratory Pattern Normal 08/22/19 09:21 Blood Pressure 75/48 L 08/22/19 09:05 Blood Pressure Position Supine 08/22/19 09:05 Pulse Oximetry 94 L 08/22/19 09:05 Oxygen Delivery Method Room Air 08/22/19 09:05 Oxygen Flow Rate 0 08/22/19 09:05 Pain Level 6 08/22/19 09:05 Lab/Test Results Lab/Test Results: Laboratory Tests Range/Units 08/22/19 09:14 Ethyl Alcohol (<3) mg/dL 106.7
[2019-08-22 09:39] LABS: ALT 59 U/L (14-59); AST 93 U/L (15-37); Albumin 2.9 g/dL (3.4-5.0); Alkaline Phosphatase 172 U/L (46-116); Anion Gap 11.8 mmol/L (3-11); BUN 4 mg/dL (7-18); Bilirubin, Total 1.5 mg/dL (0.2-1.0); CO2 24.2 mmol/L (21.0-32.0); CREATININE 0.89 mg/dL (0.55-1.02); Calcium 8.3 mg/dL (8.5-10.1); Chloride 95 mmol/L (98-107); Glucose 93 mg/dL (74-106); Magnesium 1.5 mg/dL (1.8-2.4); Sodium 131 mmol/L (136-145); Total Protein 6.9 g/dL (6.4-8.2)
--- NOTE | 2019-08-22 09:39 | DI.CT_ITS ---
EXAM: CT CHEST PE CTA CLINICAL HISTORY: chest tightness, tachycardia, r/o PE TECHNIQUE: COMPARISON: CT CT CHEST PE ABD PELVIS W from 08/16/2019 FINDINGS: CT angiography of the chest was performed with bolus infusion 1 high cc of Omnipaque 350. Images obt ained through the upper hepatic steatosis unremarkable appearance visualized portions of pancreas spl een adrenals kidneys. There is no evidence of pulmonary embolic disease. Thoracic aorta not ideally opacified but grossly unremarkable. No mediastinal or hilar adenopathy. There is mild cardiomegaly. No pericardial effusion. There is a small left pleural effusion. There are areas of atelectasis in the dependent portions of both lungs in the lung bases. No focal consolidation although a few minimal areas of ground-glass op acity are noted anteriorly bilaterally. There appear to be mild changes of COPD. IMPRESSION: No evidence of pulmonary embolic disease. Mild cardiomegaly and left pleural effusion noted. Minima l bilateral ground-glass opacities noted, consider borderline CHF, minimal infectious process not exc luded. No gross consolidation seen.
[2019-08-22 09:41] LABS: Diff Comment RBC Morph Reviewed; INR 1.2 (0.9-1.1); PTT Activated 27.1 sec (21.0-31.4); Prothrombin Time 11.9 sec (9.3-11.0)
[2019-08-22 09:42] LABS: Macrocytosis 1+; Potassium 2.9 mmol/L (3.5-5.1); Troponin I < 0.05 ng/mL (<0.06)
[2019-08-22] MEDS: Normal Saline 1,000 ML 1000 ML IV (09:46)
--- NOTE | 2019-08-22 09:47 | NUR.NOTE ---
Nursing Note: Per EMS the Pt was administered 324mg of ASA PO, 3 SL nitro tablets, and 15mg IVP of Diltiazem, and 1L NS. Heart rate has decreased from 170bpm to 90bpm. Pt reports that she currently has no pain or discomfort. BP was low upon arrival due to medication. Has increased to 90/62 since IV fluid administration.
[2019-08-22] MEDS: MAGNESIUM SULFATE 1 GM/100 ML BAG IVPB (10:04)
[2019-08-22] MEDS: POTASSIUM CHLORIDE 20 MEQ/100 ML BAG 50 MEQ IVPB (10:04)
[2019-08-22] MEDS: Potassium Chloride 20 MEQ TABCR 40 MEQ PO (10:04)
--- NOTE | 2019-08-22 11:11 | NUR.NOTE ---
pt was c/o right wrist pain from when her dog jumped on her el[place] was removed . no open skin . no redness . elgin was re applied Nursing Note:
[2019-08-22] MEDS: Omnipaque 350 MG/ML 100 ML BTL IJ (12:10)
[2019-08-22 13:24] LABS: Lactate 1.2 mmol/L (0.6-1.4)
[2019-08-22 13:46] LABS: NT-proBNP 362 pg/mL (<300)
[2019-08-22 14:24] LABS: Troponin I < 0.05 ng/mL (<0.06)
[2019-08-22] MEDS: dilTIAZem CD 120 MG CAPCR 240 MG PO (15:30)
--- NOTE | 2019-08-22 15:32 | PDOC.ERCMPRO ---
- If Service Date Differs Date of service: 08/22/19 Time of Service: 15:32 Care Management Progress Note S/O: Shantel is a 59 year old female who lives in [place] with her partner, Stepan, and their pets - a dog and a cat. Shantel is pleasant when CM meets with her. We talk about making a referral to Home Health for nursing to assist with medication compliance and for a social work faculty member to further evaluate need and assist Shantel in accessing community resources. Shantel is agreeable to this referral. A: Shantle presents to the ED today for chest pain. Today is Shantel's fourth visit to the ED this month for similar complaints. P: coordinates referral to Home Health for new nursing and [employer] services and arranges a ride via [facility] for Shantel to return home.
[2019-08-22] MEDS: Doxycycline Hyclate 100 MG CAP PO (17:06)
== END 2019-08-22 17:11 | disposition home or self-care (01) ==
PROVIDERS: Emergency Provider Physician Assistant; PCP Nurse Practitioner
DX: I48.91 Unspecified atrial fibrillation (principal); R07.89 Other chest pain; R05 Cough; F10.10 Alcohol abuse, uncomplicated; T46.1X6A Underdosing of calcium-channel blockers, initial encounter; Z91.14 Patient's other noncompliance with medication regimen; F17.210 Nicotine dependence, cigarettes, uncomplicated
CPT/HCPCS: 36415; 71275; 80053; 93005; 96361; 96365; 96368; 99285; 80320; 83605; 83735; 83880; 84484; 85025; 85610; 85730; 93010; J3475; J3480; J3490

== ENCOUNTER 2019-08-24 10:37 | Emergency (ER) | payer OTHER, SELFPAY ==
[2019-08-24] VITALS (44 sets, daily range): BP systolic 71–97; BP diastolic 49–75; PULSE 74–130; RESP 17–28; TEMP 36.8; O2SAT 90–95
[2019-08-24 10:55] LABS: Abs Immature Grans 0.01 k/cumm (0.0-0.09); Absolute Basophil Count 0.03 k/cumm (0.0-0.2); Absolute Eosinophil Count 0.04 k/cumm (0.0-0.7); Absolute Monocyte Count 1.05 k/cumm (0.11-0.7); Absolute Neutrophil Count 6.49 k/cumm (1.2-6.7); Basophils % 0.4; Eosinophils % 0.5; HCT 36.7 % (36.0-46.0); HGB 13.1 g/dL (12.0-15.5); Immature Grans % 0.1 %; Lymphocytes % 9.5; Mean Corp. HGB Concentration 35.7 g/dL (32.0-36.0); Mean Corpuscular Hemoglobin 36.4 pg (27.0-33.0); Mean Corpuscular Volume 101.9 fL (80-95); Mean Platelet Volume 9.7 fL (8.0-11.0); Monocytes % 12.5; Platelet Count 300 x1000/uL (130-400); RBC Distribution Width 13.4 % (11.7-14.6); White Blood Cell Count 8.42 k/cumm (4.4-10.8)
--- NOTE | 2019-08-24 11:00 | DI.RAD_ITS ---
EXAM: XR PORTABLE CHEST AP CLINICAL HISTORY: chest pain TECHNIQUE: COMPARISON: CR XR PORTABLE CHEST AP from 08/20/2019 FINDINGS: Portable AP chest at 1125 hours. Examination is compared with prior study of August 19, note is agai n made of cardiomegaly and left pleural effusion, question slight prominence of pulmonary markings ma y represent slight CHF, no change from prior study. IMPRESSION:
[2019-08-24 11:14] LABS: Troponin I < 0.05 ng/mL (<0.06)
[2019-08-24] MEDS: Ketorolac 15 MG/ML VIAL IVP (11:51)
[2019-08-24] MEDS: Normal Saline 1,000 ML 1000 ML IV (11:52)
[2019-08-24] MEDS: LORazepam 2 MG/ML VIAL 0.5 MG IVP (11:52)
[2019-08-24] MEDS: Acetaminophen 500 MG TAB 1000 MG PO (11:52)
--- NOTE | 2019-08-24 12:02 | ED.GENADUL_ITS ---
Discharge Plan Disposition Patient Disposition: HOME Condition: Good Discharge Details Chief Complaint: Chest Pain Clinical Impression: Acute anxiety, Chest pain Primary Care Provider: Amarilys Barrera ED Provider: Cristi Dela Cruz Home Meds and New Rx's Prescriptions: Continued diltiazem HCl [Cardizem CD] 240 mg capsule,extended release 24hr 240 mg PO DAILY 60 Days Qty: 60 RF: 2 multivitamin [Multiple Vitamins] Tablet 1 tab PO DAILY Qty: 30 RF: 3 magnesium oxide 400 mg (241.3 mg magnesium) tablet 400 mg PO DAILY Qty: 30 RF: 3 cyanocobalamin (vitamin B-12) [Vitamin B-12] 500 mcg Tablet 1,000 mcg PO DAILY Qty: 30 RF: 3 aspirin 81 mg Tablet,Delayed Release (Dr/Ec) 81 mg PO DAILY Qty: 0 RF: 0 atorvastatin 40 mg tablet 40 mg PO DAILY Qty: 30 RF: 0 pantoprazole 40 mg tablet,delayed release (DR/EC) 40 mg PO DAILY Qty: 30 RF: 0 Discharge Instructions Instructions: Chest Pain (ED), Anxiety (ED) Additional Instructions: At this time your cardiac work-up shows no significant abnormalities. Your chest x-ray shows very small pleural effusion which you do not think is the cause of your symptoms. As you and I discussed together there is concern that anxiety is certainly a component of this. We have contacted your primary care provider here helping to set up an appointment for Tuesday. Please answer and return their calls when they do contact you to help facilitate this. It is very important that you follow-up closely with them to consider potential long-term outpatient antianxiety medication. If you notice any worsening of your symptoms, or any new symptoms such as vomiting, diarrhea, fever, chills, shortness of breath, chest pain, numbness, weakness, or fainting , please return immediately to the emergency department for reevaluation. Please follow up with your primary care provider as soon as possible for reassessment and reevaluation. As always, it was a pleasure participating in your medical care t imelda. Referrals: Amarilys Barrera, AMADO [Primary Care Provider] - Medical Decision Making 59-year-old female with a past medical history of atrial fibrillation, medication noncompliance, chronic alcoholism, anxiety, who presents today for evaluation of anxiety. Patient states that for the last month and 1/2 to 2 months she has had this chest pain which comes with a feeling of anxiousness. The pain is central in her sternum, worsened with palpation. Nonexertional. She denies any significant shortness of breath. She has had multiple recent work-ups here, most recent of which being 2 days ago where he had a CT angiogram of the chest which was negative for dissection or PE, mild effusion, questionable scarring atelectasis versus minimal groundglass opacities. Patient denies any fever, chills, productive sputum, hemoptysis. She denies any change compared to her normal symptomatology. She states that the best thing that juan jose hernandezy fixes her symptoms is Ativan and she is asking for this. She has not yet followed up with her PCP, she states that her current scheduled appointment is September 11. Denies PE risk factors such as recent long car rides, immobilization, recent surgery, prior history of DVT or PE, family history of PE or DVT, morbid obesity, exogenous estrogen and smoking, hemoptysis, history of cancer. No other complaints at this time. No other modifying factors. Physical exam demonstrates reproducible chest pain over the lower sternum. Vital signs are stable. EKG shows atrial fibrillation, rate 95. Diffuse nonspecific T wave abnormalities slight inversion in V5 and V6, present on prior EKGs. No evidence of STEMI. 2:09 PM Patient's laboratory work-up has returned normal, no white count, no bandemia, no left shift. Electrolytes stable. Troponin x2 normal, repeat EKG shows no evidence of significant change or STEMI. The patient's chest x-ray is unremarkable, mild cardiomegaly, small left pleural effusion unchanged from multiple prior images. She shows no clinical signs of CHF on exam now. CT scan was 2 days ago and was otherwise unremarkable with acute life-threatening process. The patient had a complete resolution of her symptomatology after a small dose of Ativan here, and NSAIDs. Signs and symptoms are clinically inconsistent with STEMI, ACS, significant pneumonia she has no cough fever chills, or other acute life-threatening abnormality. Signs and symptoms at this time are clinically consistent with a component of anxiety. We did organize close follow-up for her at her primary care provider's office on Tuesday. Both of our rn case mgr have discussed the case with her, and encouraged her for this follow-up. Discussed red flags for which to return. I have extensively reviewed the treatment plan and discharge instructions with the patient. I have addressed all patient concerns at this time. The patient was made aware of what symptoms to monitor for that would warrant a return to the emergency department. Discussed the plan with the patient, they demonstrate verbal understanding and agreement with our assessment and plan at this time. Of note patient's blood pressure was a little low when she was given the Ativan, however this returned to normal when she woke up from her nap. She shows no signs of shock, septicemia, more cardiogenic shock at this time clinically at all. Extremities are well perfused. Review of previous blood pressures on a regular basis demonstrate notably similar levels. FINDINGS: Portable AP chest at 1125 hours. Examination is compared with prior study of August 19, note is again made of cardiomegaly and left pleural effusion, question slight prominence of pulmonary markings may represent slight CHF, no change from prior study. EKG 10: 35 Rate 95, atrial fibrillation, inverted T wave in V5 and V6, no evidence of STEMI. No significant changes from prior EKGs EKG 14: 09 Rate 86, atrial fibrillation, inverted T wave in V5 and V6, no evidence of STEMI, no acute changes, no other abnormalities. HPI General Date/Time Provider Initiated Documentation: 08/24/19 10:38 . HPI Narrative: 59-year-old female with a past medical history of atrial fibrillation, medication noncompliance, chronic alcoholism, anxiety, who presents today for evaluation of anxiety. Patient states that for the last month and 1/2 to 2 months she has had this chest pain which comes with a feeling of anxiousness. T he pain is central in her sternum, worsened with palpation. Nonexertional. She denies any significant shortness of breath. She has had multiple recent work- ups here, most recent of which being 2 days ago where he had a CT angiogram of the chest which was negative for dissection or PE, mild effusion, questionable scarring atelectasis versus minimal groundglass opacities. Patient denies any fever, chills, productive sputum, hemoptysis. She denies any change compared to her normal symptomatology. She states that the best thing that usually fixes her symptoms is Ativan and she is asking for this. She has not yet followed up with her PCP, she states that her current scheduled appointment is September 11. Denies PE risk factors such as recent long car rides, immobilization, recent surgery, prior history of DVT or PE, family history of PE or DVT, morbid obesity, exogenous estrogen and smoking, hemoptysis, history of cancer. No other complaints at this time. No other modifying factors. Related Data Home Medications Medication Instructions Recorded Confirmed cyanocobalamin (vitamin B-12) 1,000 mcg PO DAILY #30 tab 04/18/19 08/20/19 [Vitamin B-12] magnesium oxide 400 mg PO DAILY #30 tab 04/18/19 08/24/19 multivitamin [Multiple Vitamins] 1 tab PO DAILY #30 tab 04/18/19 08/20/19 diltiazem HCl [Cardizem CD] 240 mg PO DAILY 60 Days #60 cap 08/09/19 08/24/19 aspirin 81 mg PO DAILY #0 tab 08/17/19 08/20/19 atorvastatin 40 mg PO DAILY #30 tab 08/17/19 08/24/19 pantoprazole 40 mg PO DAILY #30 tab 08/17/19 08/24/19 Previous Rx's Medication Instructions Recorded cyanocobalamin (vitamin B-12) 1,000 mcg PO DAILY #30 tab 04/18/19 [Vitamin B-12] magnesium oxide 400 mg PO DAILY #30 tab 04/18/19 multivitamin [Multiple Vitamins] 1 tab PO DAILY #30 tab 04/18/19 diltiazem HCl [Cardizem CD] 240 mg PO DAILY 60 Days #60 cap 08/09/19 aspirin 81 mg PO DAILY #0 tab 08/17/19 atorvastatin 40 mg PO DAILY #30 tab 08/17/19 pantoprazole 40 mg PO DAILY #30 tab 08/17/19 Allergies Allergy/AdvReac Type Severity Reaction Status Date / Time No Known Allergies Allergy Unverified 08/24/19 10:49 General Stated Complaint: Chest Pain DANNY: 2 Review of Systems All systems reviewed & are unremarkable except as noted in HPI and below [facility] Medical History Alcohol abuse (Chronic) Anxiety and depression (Inactive 08/06/14) Atrial fibrillation with rapid ventricular response (Inactive) Opiate addiction (Inactive 08/06/14) in recovery. weaned off suboxone through [facility] 05/05/14 Pulmonary nodules (Inactive) SAH (subarachnoid hemorrhage) (Inactive) Tobacco abuse (Chronic 07/07/17) Surgical History bunionectomy (Inactive) lorangeleann a few years ago 2005ish History of bilateral tubal ligation (Acute) Family History Mother Diabetes Essential hypertension Personal history of malignant neoplasm lung, breast CA Father No problems noted. Sister Essential hypertension Sister No problems noted. Brother No problems noted. Maternal Aunt Personal history of malignant neoplasm breast Social History Smoking/Tobacco Use Status: Current every day Tobacco Type: cigarettes Alcohol Intake: current Alcohol Intake frequency: 3 or more drinks per day Alcohol type: beer Drug use: Never Substance use type: does not use Details: Pt reports beer today. Household members: significant other Do you feel safe at home: Yes Do you feel safe in your relationship?: Yes Additional Social history: Lives with long-term boyfriend Stepan in [place]. Last work at [employer] but has not worked in years. 2 adult children, including daughter in [place] and son and 2 baby grandkids and [place] Exam Narrative Exam Narrative: 1.Const: Well-nourished, Well-developed, appearing stated age 2.Eyes: PERRL, no conjunctival injection, and symmetrical lids. 3.ENT: Atraumatic external nose and ears. Moist MM. Neck: Symmetric, trachea midline, No thyromegaly. 4.CVS: +S1/S2, No murmurs or gallops. Peripheral pulses 2+ and equal in all extremities. Brisk capillary refill in all extremities. Reproducible chest pain at the inferior sternum. 5.RESP: Unlabored respiratory effort. Clear to auscultation bilaterally. No wheezes rales or rhonchi. No decreased breath sounds. 6.GI: Soft, Nontender/Nondistended, No hepatosplenomegaly. No guarding or rebound. 7.MSK: Normocephalic/Atraumatic, Extremities w/o deformity or ttp No cyanosis or clubbing, Normal movement of all extremities. No pitting edema, no calf tenderness. 8.Skin: Warm, Dry. No rashes or lesions. 9.Neuro: operations support manager II-XII grossly intact. Sensation grossly intact, no focal neurologic deficits. 10.Psych: (AAO) x3. Appropriate mood and affect Course Vital Signs Vital signs: Vital Signs Temperature 36.8 C 08/24/19 10:38 Pulse 104 H 08/24/19 10:38 Respiratory Rate 21 08/24/19 10:38 Blood Pressure 97/75 L 08/24/19 10:38 Pulse Oximetry 94 L 08/24/19 10:38 Temperature 36.8 C 08/24/19 10:38 Temperature Source Skin 08/24/19 10:38 Pulse 77 08/24/19 11:46 Pulse 110 H 08/24/19 11:50 Respiratory Rate 20 08/24/19 11:50 Respiratory Effort Non-Labored 08/24/19 11:22 Respiratory Depth Normal 08/24/19 11:22 Respiratory Pattern Normal 08/24/19 11:22 Blood Pressure 90/64 L 08/24/19 11:46 Blood Pressure Mean 69 08/24/19 11:46 Blood Pressure Position Supine 08/24/19 10:38 Pulse Oximetry 94 L 08/24/19 11:22 Oxygen Delivery Method Room Air 08/24/19 10:38 Oxygen Flow Rate 0 08/24/19 10:38 Pain Level 8 08/24/19 11:52 Lab/Test Results Lab/Test Results: Laboratory Tests Range/Units 08/24/19 08/24/19 10:49 10:49 WBC (4.4-10.8) k/cumm 8.42 RBC (4.00-5.20) m/cumm 3.60 L Hgb (12.0-15.5) g/dL 13.1 Hct (36.0-46.0) % 36.7 MCV (80-95) fL 101.9 H MCH (27.0-33.0) pg 36.4 H MCHC (32.0-36.0) g/dL 35.7 RDW (11.7-14.6) % 13.4 Plt Count (130-400) x1000/uL 300 MPV (8.0-11.0) fL 9.7 Immature Gran % % 0.1 Neutrophils % 77.0 Lymphocytes % 9.5 Monocytes % 12.5 Eosinophils % 0.5 Basophils % 0.4 Absolute Neutrophils (1.2-6.7) k/cumm 6.49 Absolute Lymphocytes (1.2-3.4) k/cumm 0.80 L Absolute Monocytes (0.11-0.7) k/cumm 1.05 H Absolute Eosinophils (0.0-0.7) k/cumm 0.04 Absolute Basophils (0.0-0.2) k/cumm 0.03 Troponin I (<0.06) ng/mL < 0.05
[2019-08-24 12:33] LABS: Anion Gap 10.4 mmol/L (3-11); BUN 3 mg/dL (7-18); CO2 23.6 mmol/L (21.0-32.0); Calcium 8.2 mg/dL (8.5-10.1); Chloride 102 mmol/L (98-107); Glucose 103 mg/dL (74-106); Potassium 3.4 mmol/L (3.5-5.1); Sodium 136 mmol/L (136-145)
--- NOTE | 2019-08-24 13:24 | CMPROGNOTE_ITS ---
- If Service Date Differs Date of service: 08/24/19 Time of Service: 13:24 Care Management Progress Note S/O: JAMAR meets with Shantel to discuss her needs and how to better support her at home. She advises she is often home alone during the day, as her partner, Stepan, goes to work. She shares her daughter, who lives in [place], visits her once a week. Shantel admits to feeling anxious when she's home by herself and states she needs to speak with her primary care physician about getting a prescription for anxiety medication. When asked when her next appointment is with her PCP, she replies she has an appointment on Tuesday. Shantel does not drive and states she takes [facility] to appointments, but admits sometimes forgetting to call [facility] to set up the rides. When asked about medications, Shantel replies she has been able to fill her prescriptions and is taking her medications as prescribed. JAMAR arranged new Home Health nursing and [employer] to evaluate medication compliance at last ED visit this past Tuesday and Shantel states she spoke with them on the telephone but no one has been to her house yet. JAMAR telephones Home Health and is advised Shantel refused services on and when they called her home today, they were told Shantel was not home. Home Health will attempt to do a home visit tomorrow, Tuesday, August 24. JAMAR left a telephone message for Rama, chronic manager care management, at [facility], to discuss how to better support Shantel in the community. A: Shantel is a 59 year old female who presents in the ED for the 5th time this month for similar complaints. P: Home Health will again attempt a home visit tomorrow. JAMAR will follow up with chronic manager care management at [facility]. CM will continue to follow.
[2019-08-24 14:02] LABS: Troponin I < 0.05 ng/mL (<0.06)
== END 2019-08-24 14:54 | disposition home or self-care (01) ==
PROVIDERS: Emergency Provider Student in an Organized Health Care Education/Training Program; PCP Nurse Practitioner
DX: F41.8 Other specified anxiety disorders (principal); R07.9 Chest pain, unspecified; F10.20 Alcohol dependence, uncomplicated; I48.91 Unspecified atrial fibrillation
CPT/HCPCS: 36415; 80048; 93005; 96361; 96374; 96375; 99285; 71045; 84484; 85025; 93010; J1885; J2060

== ENCOUNTER 2019-08-25 00:34 | Emergency (ER) | payer OTHER, SELFPAY ==
[2019-08-25 00:38] VITALS: BP 105/77; PULSE 56; RESP 16; TEMP 36.6; O2SAT 97
[2019-08-25 00:43] VITALS: RESP 16
--- NOTE | 2019-08-25 00:53 | ED.GENADUL_ITS ---
Discharge Plan Disposition Patient Disposition: HOME Condition: Stable Discharge Details Chief Complaint: Anxiety Clinical Impression: Insomnia Primary Care Provider: Amarilys Barrera ED Provider: Cole Barkley Home Meds and New Rx's Prescriptions: Continued diltiazem HCl [Cardizem CD] 240 mg capsule,extended release 24hr 240 mg PO DAILY 60 Days Qty: 60 RF: 2 multivitamin [Multiple Vitamins] Tablet 1 tab PO DAILY Qty: 30 RF: 3 magnesium oxide 400 mg (241.3 mg magnesium) tablet 400 mg PO DAILY Qty: 30 RF: 3 cyanocobalamin (vitamin B-12) [Vitamin B-12] 500 mcg Tablet 1,000 mcg PO DAILY Qty: 30 RF: 3 aspirin 81 mg Tablet,Delayed Release (Dr/Ec) 81 mg PO DAILY Qty: 0 RF: 0 atorvastatin 40 mg tablet 40 mg PO DAILY Qty: 30 RF: 0 pantoprazole 40 mg tablet,delayed release (DR/EC) 40 mg PO DAILY Qty: 30 RF: 0 Discharge Instructions Instructions: Abuse of Alcohol (ED), Insomnia (ED) Additional Instructions: because of your history of alcohol abuse I do not feel comfortable prescribing you ativan we do not prescribe sleep medicine in the Emergency Department follow up with your primary care provider this week Medical Decision Making 59 yo female with hx of alcohol abuse, anxiety, comes in with ems requesting ativan for sleep and anxiety. States she has been feeling anxious and having trouble sleeping. Denies fevers, chills, chest pain, sob, abd pain, n/v, no si and no hi. Is caox4 with clear speech no focal deficits and is clinically sober and has capacity to make decisions. We discussed ativan and after discussing her alcohol abuse do not feel it is safe for her to take this and be prescribed this through the ED. ADvised she needs to see her pcp which she is scheduled to do next week. Advised she can try benadryl 25mg as otc remedy. will d/c home and advised f/u with pcp Differential Diagnosis Differential Diagnosis: anxiety insomnia HPI General Mode of arrival: EMS . Date/Time Provider Initiated Documentation: 08/25/19 00:44 . Limitations to Documentation: no limitations . Information obtained by: patient . History of Present Illness 59 year old F presents to the emergency department with the chief complaint of trouble sleeping, described as moderate, and it has been constant. No relieving factors improve symptom(s), No exacerbating factors reported . Patient did receive the following treatments prior to arrival, none Related Data Home Medications Medication Instructions Recorded Confirmed cyanocobalamin (vitamin B-12) 1,000 mcg PO DAILY #30 tab 04/18/19 08/25/19 [Vitamin B-12] magnesium oxide 400 mg PO DAILY #30 tab 04/18/19 08/25/19 multivitamin [Multiple Vitamins] 1 tab PO DAILY #30 tab 04/18/19 08/25/19 diltiazem HCl [Cardizem CD] 240 mg PO DAILY 60 Days #60 cap 08/09/19 08/25/19 aspirin 81 mg PO DAILY #0 tab 08/17/19 08/25/19 atorvastatin 40 mg PO DAILY #30 tab 08/17/19 08/25/19 pantoprazole 40 mg PO DAILY #30 tab 08/17/19 08/25/19 Previous Rx's Medication Instructions Recorded cyanocobalamin (vitamin B-12) 1,000 mcg PO DAILY #30 tab 04/18/19 [Vitamin B-12] magnesium oxide 400 mg PO DAILY #30 tab 04/18/19 multivitamin [Multiple Vitamins] 1 tab PO DAILY #30 tab 04/18/19 diltiazem HCl [Cardizem CD] 240 mg PO DAILY 60 Days #60 cap 08/09/19 aspirin 81 mg PO DAILY #0 tab 08/17/19 atorvastatin 40 mg PO DAILY #30 tab 08/17/19 pantoprazole 40 mg PO DAILY #30 tab 08/17/19 Allergies Allergy/AdvReac Type Severity Reaction Status Date / Time No Known Allergies Allergy Unverified 08/25/19 00:48 General Stated Complaint: Anxiety DANNY: 4 Review of Systems All systems reviewed & are unremarkable except as noted in HPI and below Constitutional Constitutional: Denies chills, Denies fever(s) and Denies weakness Cardiovascular Cardiovascular: Denies chest pain and Denies dyspnea Respiratory Respiratory: Denies cough and Denies dyspnea Gastrointestinal Gastrointestinal: Denies abdominal pain, Denies nausea and Denies vomiting Neurologic Neurologic: Denies weakness Psychiatric Psychiatric: Denies depression [facility] Social History Smoking/Tobacco Use Status: Current every day Tobacco Type: cigarettes Alcohol Intake: current Alcohol Intake frequency: 3 or more drinks per day Alcohol type: beer Drug use: Never Substance use type: does not use Details: Pt reports beer today. Household members: significant other Do you feel safe at home: Yes Do you feel safe in your relationship?: Yes Additional Social history: Lives with long-term boyfriend Stepan in [place]. Last work at [employer] but has not worked in years. 2 adult children, including daughter in [place] and son and 2 baby grandkids and [place] Exam Const General: no acute distress Orientation: alert HENMT Head: normal to inspection Ears: external ears normal General nose exam: external nose normal Mouth: moist mucous membranes Eyes General: appearance normal, both eyes and all related structures Neck Neck: normal visual inspection Resp Effort & Inspection: normal respiratory effort and able to speak in complete sentences Cardio Rate: regular rate Skin General skin exam: no rashes or lesions noted Neuro General: patient alert and patient oriented x3 Extrem General: normal to inspection Psych Mental Status: mental status grossly normal Course Vital Signs Vital signs: Vital Signs Temperature 36.6 C 08/25/19 00:38 Pulse 56 L 08/25/19 00:38 Respiratory Rate 16 08/25/19 00:38 Blood Pressure 105/77 08/25/19 00:38 Pulse Oximetry 97 08/25/19 00:38 Temperature 36.6 C 08/25/19 00:38 Temperature Source Tympanic 08/25/19 00:38 Pulse 56 L 08/25/19 00:38 Respiratory Rate 16 08/25/19 00:43 Respiratory Effort Non-Labored 08/25/19 00:43 Respiratory Depth Normal 08/25/19 00:43 Respiratory Pattern Normal 08/25/19 00:43 Blood Pressure 105/77 08/25/19 00:38 Blood Pressure Position Sitting 08/25/19 00:38 Pulse Oximetry 97 08/25/19 00:38 Oxygen Delivery Method Room Air 08/25/19 00:38 Oxygen Flow Rate 0 08/25/19 00:38 Pain Level 0 08/25/19 00:38
[2019-08-25 01:07] VITALS: BP 105/77; PULSE 56; RESP 16; TEMP 36.6; O2SAT 97
== END 2019-08-25 01:10 | disposition home or self-care (01) ==
LOC: ER 01:03
PROVIDERS: Emergency Provider Emergency Medicine; PCP Nurse Practitioner
DX: G47.00 Insomnia, unspecified (principal); F41.9 Anxiety disorder, unspecified; F10.10 Alcohol abuse, uncomplicated
CPT/HCPCS: 99283; 99282

== ENCOUNTER 2019-08-29 10:19 | Emergency (ER) | payer OTHER, SELFPAY ==
[2019-08-29 10:25] VITALS: BP 109/88; PULSE 84; RESP 16; TEMP 36.6; O2SAT 96
[2019-08-29 10:35] VITALS: RESP 16
--- NOTE | 2019-08-29 10:44 | W.ED.GENAD ---
Discharge Plan Disposition Patient Disposition: AGAINST MEDICAL ADVICE Condition: Stable Discharge Details Chief Complaint: Chest Pain Clinical Impression: Chest pain, Alcohol abuse, Anxiety Primary Care Provider: Amarilys Barrera ED Provider: Cristine Marquis Home Meds and New Rx's Prescriptions: Continued diltiazem HCl [Cardizem CD] 240 mg capsule,extended release 24hr 240 mg PO DAILY 60 Days Qty: 60 RF: 2 multivitamin [Multiple Vitamins] Tablet 1 tab PO DAILY Qty: 30 RF: 3 magnesium oxide 400 mg (241.3 mg magnesium) tablet 400 mg PO DAILY Qty: 30 RF: 3 cyanocobalamin (vitamin B-12) [Vitamin B-12] 500 mcg Tablet 1,000 mcg PO DAILY Qty: 30 RF: 3 aspirin 81 mg Tablet,Delayed Release (Dr/Ec) 81 mg PO DAILY Qty: 0 RF: 0 atorvastatin 40 mg tablet 40 mg PO DAILY Qty: 30 RF: 0 pantoprazole 40 mg tablet,delayed release (DR/EC) 40 mg PO DAILY Qty: 30 RF: 0 Discharge Instructions Instructions: Chest Pain (ED), Abuse of Alcohol (ED), Anxiety (ED) Additional Instructions: Drink plenty of fluids and get plenty of rest. Take all your regular medications as directed. Call your primary care doctor's office today to schedule follow-up appointment for reevaluation to discuss medication management. Return to the emergency department if you develop any worsening or new concerning symptoms. Discharge Data Discharge Date/Time-TO BE ENTERED AT DEPARTURE: 08/29/19 11:35 Discharge Physician: Cristine Marquis Medical Decision Making 59-year-old female well-known to the emergency department with a history of atrial fibrillation, alcohol abuse, anxiety and depression presents for chest pain and anxiety this morning. She has been to the emergency department 9 times within the last month for similar related complaints. On her to recent visits within the last week, she had requested Ativan for her anxiety. EMS gave patient 50 mg of diltiazem for heart rate in the 160s in A. fib and she now feels much better and is requesting to leave. Her chest pain is still 6/10. Her EKG notes a rate of 102, A. fib with no acute ST ischemic changes. Her vitals are within normal limits. She appears nontoxic and comfortable. She does not appear intoxicated or in withdrawal. Lungs clear to auscultation. Discussed at length with patient regarding her multiple recent ED visits for similar complaints as well as her medications as she has a history of noncompliance. She is adamant that she took her diltiazem this morning. She has an appointment with her primary care doctor next week and she is advised to discuss with them whether her diltiazem dosing needs to be adjusted. The patient does not want any blood work or imaging and is requesting to leave at this time. She was given a dose of hydroxyzine for her complaint of anxiety. The risks of and disability due to a possible serious cardiac pathology explained and she understands. She demonstrates capacity make decisions. AMA form signed. She is advised to call her primary care doctor today for follow-up sooner than next week and to return here with any concerns. Medical Records Medical records reviewed: Yes I reviewed the patient's medical records. Lab Data Lab results reviewed: Yes I reviewed the patient's lab results. ECG Data Attestation: I personally reviewed and interpreted this ECG (s) as follows: Interpretation: Rate of 102, atrial fibrillation, no acute ST elevation or depression. QRS 90. HPI General Mode of arrival: EMS. Date/Time Provider Initiated Documentation: 08/29/19 10:24. Limitations to Documentation: no limitations. Information obtained by: patient. HPI Narrative: Patient is a 59-year-old female well-known to the emergency department with a history of alcohol abuse, anxiety, depression, atrial fibrillation, noncompliance with medications presents for chest pain and feelings of anxiety this morning. Patient states she drank 3 tall boys and 2 cups of coffee this morning. She states she also did take her diltiazem this morning. EMS noted a heart rate of 160 for which they gave 50 mg of diltiazem IV. Patient states her chest pain is currently 6/10 but she states she overall feels better. She denies any fever or change in her chronic cough. She denies any shortness of breath, nausea or dizziness at this time. Related Data Home Medications Medication Instructions Recorded Confirmed cyanocobalamin (vitamin B-12) 1,000 mcg PO DAILY #30 tab 04/18/19 08/29/19 [Vitamin B-12] magnesium oxide 400 mg PO DAILY #30 tab 04/18/19 08/29/19 multivitamin [Multiple Vitamins] 1 tab PO DAILY #30 tab 04/18/19 08/29/19 diltiazem HCl [Cardizem CD] 240 mg PO DAILY 60 Days #60 cap 08/09/19 08/29/19 aspirin 81 mg PO DAILY #0 tab 08/17/19 08/29/19 atorvastatin 40 mg PO DAILY #30 tab 08/17/19 08/29/19 pantoprazole 40 mg PO DAILY #30 tab 08/17/19 08/29/19 Previous Rx's Medication Instructions Recorded cyanocobalamin (vitamin B-12) 1,000 mcg PO DAILY #30 tab 04/18/19 [Vitamin B-12] magnesium oxide 400 mg PO DAILY #30 tab 04/18/19 multivitamin [Multiple Vitamins] 1 tab PO DAILY #30 tab 04/18/19 diltiazem HCl [Cardizem CD] 240 mg PO DAILY 60 Days #60 cap 08/09/19 aspirin 81 mg PO DAILY #0 tab 08/17/19 atorvastatin 40 mg PO DAILY #30 tab 08/17/19 pantoprazole 40 mg PO DAILY #30 tab 08/17/19 Allergies Allergy/AdvReac Type Severity Reaction Status Date / Time No Known Allergies Allergy Unverified 08/29/19 10:34 General Stated Complaint: Chest Pain DANNY: 2 Review of Systems All systems reviewed & are unremarkable except as noted in HPI and below Constitutional Constitutional: Reports as per HPI, Denies chills and Denies fever(s) Eyes Eyes: Denies blurry vision ENT Ears, Nose, Mouth, and Throat: Denies dizziness, Denies sore throat and Denies throat swelling Cardiovascular Cardiovascular: Reports chest pain and Denies dyspnea Respiratory Respiratory: Denies cough and Denies dyspnea Gastrointestinal Gastrointestinal: Denies abdominal pain, Denies diarrhea and Denies vomiting Genitourinary Genitourinary: Denies hematuria and Denies dysuria Musculoskeletal Musculoskeletal: Denies back pain and Denies numbness Integumentary/Breasts Skin/Breast: Denies lesions and Denies rash Neurologic Neurologic: Denies dizziness, Denies localized weakness and Denies numbness Allergic/Immunologic Allergic/Immunologic: Denies throat swelling [facility] Social History Smoking/Tobacco Use Status: Current every day Tobacco Type: cigarettes Alcohol Intake: current Alcohol Intake frequency: 3 or more drinks per day Alcohol type: beer Drug use: Never Substance use type: does not use Details: Pt reports beer today. Household members: significant other Do you feel safe at home: Yes Do you feel safe in your relationship?: Yes Additional Social history: Lives with long-term boyfriend Stepan in [place]. Last work at [employer] but has not worked in years. 2 adult children, including daughter in [place] and son and 2 baby grandkids and [place] Exam Const General: cooperative, no acute distress and ill appearing chronically Orientation: alert, awake and oriented x3 HENMT Head: normal to inspection Face and sinus: normal facial exam Eyes General: appearance normal, both eyes and all related structures EOM: EOM intact bilaterally Neck Neck: normal visual inspection and No submandibular swelling Lymphatic: no lymphadenopathy noted Chest Chest: normal inspection of the chest and no tenderness Resp Effort & Inspection: normal respiratory effort and able to speak in complete sentences Auscultation: clear to auscultation bilaterally Cardio Rate: regular rate Rhythm: regular rhythm GI Inspection: normal to inspection Palpation: soft, not firm, not rigid and nontender Auscultation: normal bowel sounds Skin General skin exam: no rashes or lesions noted Neuro General: patient alert, patient awake and patient oriented x3 Cognition: normal cognition Speech: speech normal Motor: muscle tone normal throughout Sensory Exam: no sensory deficits noted Extrem General: normal to inspection, full ROM, capillary refill normal, no calf tenderness bilaterally and no edema Psych Appearance: grossly normal Mental Status: mental status grossly normal Speech and Movement: speech and movement normal Affect: normal affect Course Vital Signs Vital signs: Vital Signs Temperature 97.9 F 08/29/19 10:25 Pulse 84 08/29/19 10:25 Respiratory Rate 16 08/29/19 10:25 Blood Pressure 109/88 08/29/19 10:25 Pulse Oximetry 96 08/29/19 10:25 Temperature 97.9 F 08/29/19 10:25 Temperature Source Tympanic 08/29/19 10:25 Pulse 84 08/29/19 10:25 Respiratory Rate 16 08/29/19 10:35 Respiratory Effort Labored 08/29/19 10:35 Respiratory Depth Normal 08/29/19 10:35 Respiratory Pattern Normal 08/29/19 10:35 Blood Pressure 109/88 08/29/19 10:25 Blood Pressure Position Sitting 08/29/19 10:25 Pulse Oximetry 96 08/29/19 10:25 Oxygen Delivery Method Room Air 08/29/19 10:25 Oxygen Flow Rate 0 08/29/19 10:25 Pain Level 6 08/29/19 10:35
[2019-08-29] MEDS: hydrOXYzine HCL 25 MG TAB PO (11:13)
[2019-08-29 11:14] VITALS: BP 108/59; PULSE 100; RESP 16; TEMP 36.6; O2SAT 98
== END 2019-08-29 11:35 | disposition left against medical advice (07) ==
PROVIDERS: Emergency Provider Physician Assistant; PCP Nurse Practitioner
DX: R07.9 Chest pain, unspecified (principal); F41.8 Other specified anxiety disorders; F10.10 Alcohol abuse, uncomplicated; Z53.21 Procedure and treatment not carried out due to patient leaving prior to being seen by health care provider; I48.91 Unspecified atrial fibrillation
CPT/HCPCS: 36415; 93005; 99283; 93010

== ENCOUNTER 2019-08-31 05:23 | Emergency (ER) | payer OTHER, SELFPAY ==
[2019-08-31] VITALS (29 sets, daily range): BP systolic 86–105; BP diastolic 65–79; PULSE 82–146; RESP 19–29; TEMP 36.2; O2SAT 89–97
--- NOTE | 2019-08-31 05:34 | W.ED.GENAD ---
Discharge Plan Disposition Patient Disposition: AGAINST MEDICAL ADVICE Condition: Good Discharge Details Chief Complaint: Palpitatns Clinical Impression: Atrial fibrillation with rapid ventricular response, Hypomagnesemia, Alcohol abuse, Anxiety Primary Care Provider: Amarilys Barrera ED Provider: Chente Toro [place] Meds and New Rx's Prescriptions: Continued diltiazem HCl [Cardizem CD] 240 mg capsule,extended release 24hr 240 mg PO DAILY 60 Days Qty: 60 RF: 2 multivitamin [Multiple Vitamins] Tablet 1 tab PO DAILY Qty: 30 RF: 3 magnesium oxide 400 mg (241.3 mg magnesium) tablet 400 mg PO DAILY Qty: 30 RF: 3 cyanocobalamin (vitamin B-12) [Vitamin B-12] 500 mcg Tablet 1,000 mcg PO DAILY Qty: 30 RF: 3 aspirin 81 mg Tablet,Delayed Release (Dr/Ec) 81 mg PO DAILY Qty: 0 RF: 0 atorvastatin 40 mg tablet 40 mg PO DAILY Qty: 30 RF: 0 pantoprazole 40 mg tablet,delayed release (DR/EC) 40 mg PO DAILY Qty: 30 RF: 0 Discharge Instructions Instructions: A-fib (Atrial Fibrillation) (ED), Anxiety (ED) Additional Instructions: You are signing out AMA before your second troponin has been drawn. You were complaining of chest discomfort while your first troponin is negative it is the second troponin that is more important. You should return to ED if you develop new or worsening chest pain. It is important that you remember to take your medication as directed. The ED will not prescribe anti-anxiety medication to you. You will need to follow-up with primary care or with [facility]. It would be helpful to you to discontinue alcohol consumption as this likely contributes to your problem. Referrals: [facility] [Provider Group] Amarilys Barrera, [employer] [Primary Care Provider] - Medical Decision Making Patient beginning to creep back up and only received 10 mg IV diltiazem. Will obtain long-acting diltiazem to 40 mg from pharmacy. Will give hydroxyzine for anxiety. EKG shows no acute ST changes. BMP and magnesium as well as troponin ordered. 07:30 -patient laboratory studies significant for hypomagnesemia. This will be replaced. Potassium and calcium are fine. First troponin negative. A. fib is now rate controlled. Plan for second troponin and if negative discharge home to follow-up with primary care and/or [facility]. Patient be signed over to oncoming physician to follow-up on second troponin. 7:30 -patient has now decided she does not wish to stay for her second troponin. She is requesting discharge. She does have capacity and has signed out AMA on multiple occasions in the past. She currently is rate controlled. She will be discharged AMA. Medical Records Medical records reviewed: Yes I reviewed the patient's medical records. Lab Data Lab results reviewed: Yes I reviewed the patient's lab results. ECG Data Attestation: I personally reviewed and interpreted this ECG (s) as follows: Prior ECG tracings: not available for review Interpretation: Atrial fibrillation at 119. Normal axis and intervals. Nonspecific ST changes. Nothing acute. HPI General Mode of arrival: EMS. Date/Time Provider Initiated Documentation: 08/31/19 05:34. Limitations to Documentation: no limitations. Information obtained by: patient, EMS, RN notes reviewed and old records reviewed. HPI Narrative: Patient presents to ED by ambulance with palpitations and anxiety. Patient has multiple visits to ED and occasional admission for same. She continues to smoke cigarettes and drink alcohol on a regular basis. She insists that she takes her medication every day but this is been questioned in the past. She called EMS this morning for palpitations, anxiety, chest discomfort. She was found to be in rapid A. fib and given IV Cardizem which did slow her. She is starting to creep back up again here. Continues to feel extremely anxious. Admits to drinking alcohol last night. Continues to complain of some discomfort in her chest. Does not currently feel short of breath. Has a chronic smoker's cough. Denies fever. Related Data Home Medications Medication Instructions Recorded Confirmed cyanocobalamin (vitamin B-12) 1,000 mcg PO DAILY #30 tab 04/18/19 08/31/19 [Vitamin B-12] magnesium oxide 400 mg PO DAILY #30 tab 04/18/19 08/31/19 multivitamin [Multiple Vitamins] 1 tab PO DAILY #30 tab 04/18/19 08/31/19 diltiazem HCl [Cardizem CD] 240 mg PO DAILY 60 Days #60 cap 08/09/19 08/31/19 aspirin 81 mg PO DAILY #0 tab 08/17/19 08/31/19 atorvastatin 40 mg PO DAILY #30 tab 08/17/19 08/31/19 pantoprazole 40 mg PO DAILY #30 tab 08/17/19 08/31/19 Previous Rx's Medication Instructions Recorded cyanocobalamin (vitamin B-12) 1,000 mcg PO DAILY #30 tab 04/18/19 [Vitamin B-12] magnesium oxide 400 mg PO DAILY #30 tab 04/18/19 multivitamin [Multiple Vitamins] 1 tab PO DAILY #30 tab 04/18/19 diltiazem HCl [Cardizem CD] 240 mg PO DAILY 60 Days #60 cap 08/09/19 aspirin 81 mg PO DAILY #0 tab 08/17/19 atorvastatin 40 mg PO DAILY #30 tab 08/17/19 pantoprazole 40 mg PO DAILY #30 tab 08/17/19 Allergies Allergy/AdvReac Type Severity Reaction Status Date / Time No Known Allergies Allergy Unverified 08/31/19 05:29 General Stated Complaint: Palpitatns DANNY: 3 Review of Systems Narrative: As documented in HPI otherwise negative as below. Const: no fever, chills, weakness Resp: no SOB, pleuritic pain CV: no diaphoresis, syncope GI: no abdominal pain, nausea, vomiting, diarrhea Neuro: no headache, numbness, focal weakness, confusion PFSH Medical History Alcohol abuse (Chronic) Anxiety and depression (Inactive 08/06/14) Atrial fibrillation with rapid ventricular response (Inactive) Opiate addiction (Inactive 08/06/14) in recovery. weaned off suboxone through [facility] 05/05/14 Pulmonary nodules (Inactive) SAH (subarachnoid hemorrhage) (Inactive) Tobacco abuse (Chronic 07/07/17) Surgical History bunionectomy (Inactive) lamontangen a few years ago 2005ish History of bilateral tubal ligation (Acute) Social History Smoking/Tobacco Use Status: Current every day Tobacco Type: cigarettes Alcohol Intake: current Alcohol Intake frequency: 3 or more drinks per day Alcohol type: beer Drug use: Never Substance use type: does not use Details: Pt reports beer today. Household members: significant other Do you feel safe at home: Yes Do you feel safe in your relationship?: Yes Additional Social history: Lives with long-term boyfriend Stepan in [place]. Last work at [employer] but has not worked in years. 2 adult children, including daughter in [place] and son and 2 baby grandkids and [place] Exam Narrative Exam Narrative: Vitals: Afebrile. Intermittently tachycardic. Normal blood pressure and room air saturation. Const: Thin elderly appearing female in NAD. HEENT: NC/AT. Normal facial exam. Eyes: Normal conjunctiva and sclera. Neck: Supple. Trachea midline. Lungs: Normal respiratory effort. Lungs are clear. Cor: Irr/irr without murmur/gallop. Good radial pulses. Neuro: A+O x 3. Normal speech, mentation. Cranial nerves II - XII grossly intact. No gross motor or sensory deficit. Ext: No C/C. BLE edema. Skin: Warm and dry. Course Vital Signs Vital signs: Vital Signs Temperature 97.2 F L 08/31/19 05:24 Pulse 101 H 08/31/19 05:24 Respiratory Rate 20 08/31/19 05:24 Blood Pressure 104/77 08/31/19 05:24 Pulse Oximetry 96 08/31/19 05:24 Temperature 97.2 F L 08/31/19 05:24 Temperature Source Skin 08/31/19 05:24 Pulse 101 H 08/31/19 05:24 Respiratory Rate 20 08/31/19 05:24 Respiratory Effort 08/31/19 05:30 Blood Pressure 104/77 08/31/19 05:24 Blood Pressure Position Sitting 08/31/19 05:24 Pulse Oximetry 96 08/31/19 05:24 Oxygen Delivery Method Room Air 08/31/19 05:24 Oxygen Flow Rate 0 08/31/19 05:24 Pain Level 0 08/31/19 05:24
[2019-08-31] MEDS: hydrOXYzine HCL 25 MG TAB PO (05:54)
[2019-08-31] MEDS: dilTIAZem 25 MG/5 ML VIAL 10 MG IVP (05:55)
[2019-08-31] MEDS: Normal Saline Flush 10 ML SYR IVP (05:56)
[2019-08-31] MEDS: dilTIAZem CD 120 MG CAPCR 240 MG PO (06:04)
[2019-08-31 06:45] LABS: Anion Gap 12.8 mmol/L (3-11); BUN 2 mg/dL (7-18); CO2 24.2 mmol/L (21.0-32.0); CREATININE 0.57 mg/dL (0.55-1.02); Calcium 8.7 mg/dL (8.5-10.1); Chloride 103 mmol/L (98-107); Glucose 100 mg/dL (74-106); Magnesium 1.5 mg/dL (1.8-2.4); Potassium 3.7 mmol/L (3.5-5.1); Sodium 140 mmol/L (136-145)
[2019-08-31 06:49] LABS: Troponin I < 0.05 ng/mL (<0.06)
[2019-08-31] MEDS: MAGNESIUM SULFATE 2 GM/50 ML BAG IVPB (07:02)
== END 2019-08-31 07:45 | disposition left against medical advice (07) ==
PROVIDERS: Emergency Provider Emergency Medicine; PCP Nurse Practitioner
DX: I48.91 Unspecified atrial fibrillation (principal); I47.2 Ventricular tachycardia; E83.42 Hypomagnesemia; F41.8 Other specified anxiety disorders; F10.10 Alcohol abuse, uncomplicated; Z53.29 Procedure and treatment not carried out because of patient's decision for other reasons; J44.0 Chronic obstructive pulmonary disease with (acute) lower respiratory infection; F17.210 Nicotine dependence, cigarettes, uncomplicated
CPT/HCPCS: 36415; 80048; 93005; 96365; 96375; 99284; 83735; 84484; 93010

== ENCOUNTER 2019-09-03 09:01 | Emergency (ER) | payer OTHER, SELFPAY ==
[2019-09-03] VITALS (43 sets, daily range): BP systolic 84–108; BP diastolic 58–86; PULSE 70–158; RESP 17–29; TEMP 36.7; O2SAT 90–98
--- NOTE | 2019-09-03 09:22 | W.ED.GENAD ---
Discharge Plan Disposition Patient Disposition: AGAINST MEDICAL ADVICE Condition: Fair Discharge Details Chief Complaint: Palpitatns Clinical Impression: Atrial fibrillation with rapid ventricular response, Pericardial effusion Primary Care Provider: Amarilys Barrera ED Provider: Trish Reeder Home Meds and New Rx's Prescriptions: Continued diltiazem HCl [Cardizem CD] 240 mg capsule,extended release 24hr 240 mg PO DAILY 60 Days Qty: 60 RF: 2 multivitamin [Multiple Vitamins] Tablet 1 tab PO DAILY Qty: 30 RF: 3 magnesium oxide 400 mg (241.3 mg magnesium) tablet 400 mg PO DAILY Qty: 30 RF: 3 cyanocobalamin (vitamin B-12) [Vitamin B-12] 500 mcg Tablet 1,000 mcg PO DAILY Qty: 30 RF: 3 aspirin 81 mg Tablet,Delayed Release (Dr/Ec) 81 mg PO DAILY Qty: 0 RF: 0 atorvastatin 40 mg tablet 40 mg PO DAILY Qty: 30 RF: 0 pantoprazole 40 mg tablet,delayed release (DR/EC) 40 mg PO DAILY Qty: 30 RF: 0 Discharge Instructions Instructions: A-fib (Atrial Fibrillation) (ED), Abuse of Alcohol (ED), Pericardial Effusion (ED) Additional Instructions: You have elected to leave the emergency department AGAINST MEDICAL ADVICE. The risk of doing so was or permanent disability, as we discussed. You may return to emergency department anytime if you change your mind. Please return immediately to the emergency department if you develop any new or worsening symptoms, if your condition does not improve as expected, or if you become otherwise concerned. It is extremely important that you call soon as possible to make an appointment to be seen in follow-up for this visit by your primary care doctor. Referrals: Amarilys Barrera, AMADO [Primary Care Provider] - Discharge Data Discharge Date/Time-TO BE ENTERED AT DEPARTURE: 09/03/19 13:20 Medical Decision Making Shantel Bee is a 59-year-old woman with a history of alcohol abuse, atrial fibrillation, anxiety, CHF who presented to the emergency department with anxiety and shortness of breath, also with tailbone pain from fall 2 days ago; patient called EMS for anxiety and was found to be rapid A. fib at a rate 140-160. On exam patient is mildly anxious appearing. She is in rapid A. fib with variable rate between 100-150, blood pressure 100 systolic. Benign respiratory exam. Tenderness of the sacrum without crepitus or deformity, no tenderness of the thoracic or lumbar spine, mild bilateral tenderness of the hips, full range of motion of the hips. DP pulses intact and symmetric. Concern for rapid A. fib, metabolic/electrolyte derangement, CHF, ACS, sacral fracture, other. Exam/history is not consistent with acute emergent intracranial trauma, acute emergent trauma to the thorax, abdomen, cervical/thoracic/lumbar spine, or extremities, sepsis, acute aortic pathology. Plan for EKG, telemetry, screening labs, diltiazem infusion, sacral x-ray, pelvis x-ray. Will monitor and reassess. Pt given 1mg ativan IV for anxiety. Labs reviewed. Trop neg, BNP elevated, low mag, d-dimer elevated, LFTs abnormal. Plan for CTA chest for r/o PE. Pt with anxiety significantly improved on reassessment. CT shows b/l pleural effusions, small to moderate pericardial effusion, no PE. Plan for admission for CHF, afib, further eval. I had a lengthy discussion with Pt re: plan for admission. Pt states that she needs to go home and take care of some things before she can be admitted, states that she will come back tomorrow. I expressed to the Pt my grave concern that her alcohol consumption in combination with intermittent med non-compliance is extremely dangerous to her health, and that if she were to leave the emergeny department against my recommendation, and/or continue to drink excessive alcohol she may or become permanently disabled. Pt verbalized understanding of this risk and continued to refuse admission. Pt with capacity for informed refusal. I had a lengthy discussion with the Pt re: RTED precautions, that she may RTED at any time if she changes her mind, and importance of outpt f/u. Pt verbalizes understanding and is amenable. All questions were answered. Pt was discharged to home with clear plan for outpt f/u, with best plan being to RTED. Medical Records Medical records reviewed: Yes I reviewed the patient's medical records. Imaging Data Radiologic Study: Attestation: I personally reviewed and interpreted this imaging study as follows: Radiologist's impression: EXAM: XR CHEST 1V IN DI DEPT CLINICAL HISTORY: SOB TECHNIQUE: 2D digital imaging was performed. COMPARISON: CR XR PORTABLE CHEST AP from 08/20/[address] CHEST PE CTA from 08/22/2019 CR XR PORTABLE CHEST AP from 08/24/2019 FINDINGS: The heart is enlarged. There is a small right and moderate left pleural effusion, increasing from the previous exam. No infiltrate or pulmonary edema is seen. No pneumothorax. IMPRESSION: Cardiomegaly and bilateral pleural effusions, left greater than right. EXAM: CT CHEST PE CTA CLINICAL HISTORY: SOB. TECHNIQUE: Imaging Protocol: Axial CT angiography was performed with multi-slice acquisition and multi-planar and/or 3D reconstructions. CONTRAST MATERIAL: Intravenous: Omnipaque 350 Contrast volume:70 ml COMPARISON: No exams were available for comparison FINDINGS: Pulmonary Arteries: No evidence of filling defect to suggest pulmonary emboli. Tracheobronchial tree: Patent. Mediastinum and Jaye: No dominant adenopathy. Pulmonary parenchyma: Suboptimally evaluated due to respiratory motion. Bibasilar compressive atelectasis. Pleura: Moderate-sized bilateral pleural effusions.. Heart: The heart is moderately dilated. Small to moderate-sized pericardial effusion. Aorta: Thoracic aorta non-dilated. Mild calcification. No dissection. Upper abdomen: Severe hepatic steatosis. Bones: Degenerative changes in the spine. IMPRESSION: Bilateral pleural effusions and compressive atelectasis. Small to moderate-sized pericardial effusion. No evidence of pulmonary embolism. Lab Data Lab results reviewed: Yes I reviewed the patient's lab results. Labs: 09/03/19 12:24 Urine - Reflex from Ua Urine Culture - Preliminary Gram Negative Júnior Gram Negative Júnior#2 Gram Positive Bria,Mixed Laboratory Tests Range/Units 09/03/19 09/03/19 09/03/19 09:25 09:25 09:25 WBC (4.4-10.8) k/cumm 8.65 RBC (4.00-5.20) m/cumm 3.58 L Hgb (12.0-15.5) g/dL 12.8 Hct (36.0-46.0) % 35.6 L MCV (80-95) fL 99.4 H MCH (27.0-33.0) pg 35.8 H MCHC (32.0-36.0) g/dL 36.0 RDW (11.7-14.6) % 12.6 Plt Count (130-400) x1000/uL 233 MPV (8.0-11.0) fL 9.5 Immature Gran % % 0.2 Neutrophils % 79.4 Lymphocytes % 7.3 Monocytes % 12.9 Eosinophils % 0.1 Basophils % 0.1 Absolute Neutrophils (1.2-6.7) k/cumm 6.86 H Absolute Lymphocytes (1.2-3.4) k/cumm 0.63 L Absolute Monocytes (0.11-0.7) k/cumm 1.12 H Absolute Eosinophils (0.0-0.7) k/cumm 0.01 Absolute Basophils (0.0-0.2) k/cumm 0.01 D-Dimer (<500) ng/mlFEU 7334 H Sodium (136-145) mmol/L 135 L Potassium (3.5-5.1) mmol/L 3.5 Chloride (98-107) mmol/L 100 Carbon Dioxide (21.0-32.0) mmol/L 22.0 Anion Gap (3-11) mmol/L 13.0 H BUN (7-18) mg/dL 1 L Creatinine (0.55-1.02) mg/dL 0.57 Estimated GFR/1.73 m2 (mL/min/1.73m2) >= 60.00 Glucose (74-106) mg/dL 101 Calcium (8.5-10.1) mg/dL 8.1 L Magnesium (1.8-2.4) mg/dL Total Bilirubin (0.2-1.0) mg/dL 1.8 H AST (15-37) U/L 142 H ALT (14-59) U/L 63 H Alkaline Phosphatase (46-116) U/L 247 H Troponin I (<0.06) ng/mL < 0.05 NT-Pro-B Natriuret Pep (<300) pg/mL Total Protein (6.4-8.2) g/dL 6.8 Albumin (3.4-5.0) g/dL 2.5 L Procalcitonin ng/mL Urine Color (Yellow) Urine Clarity (Clear) Urine pH (5-8) Ur Specific [place] (1.005-1.025) Urine Protein (Negative) mg/dL Urine Ketones (Negative) mg/dL Urine Blood (Negative) Urine Nitrite (Negative) Urine Bilirubin (Negative) Urine Urobilinogen (Up TO 0.2) EU/dL Ur Leukocyte Esterase (Negative) Urine RBC (0-2) HPF Urine WBC (0-5) HPF Ur Epithelial Cells (Negative) HPF Urine Crystals (Negative) HPF Urine Bacteria (Negative) HPF Urine Casts (Negative) LPF Urine Mucus (Negative) Ur Culture Indicated? Urine Glucose (Negative) mg/dL Range/Units 09/03/19 09/03/19 09/03/19 09:25 12:15 12:24 WBC (4.4-10.8) k/cumm RBC (4.00-5.20) m/cumm Hgb (12.0-15.5) g/dL Hct (36.0-46.0) % MCV (80-95) fL MCH (27.0-33.0) pg MCHC (32.0-36.0) g/dL RDW (11.7-14.6) % Plt Count (130-400) x1000/uL MPV (8.0-11.0) fL Immature Gran % % Neutrophils % Lymphocytes % Monocytes % Eosinophils % Basophils % Absolute Neutrophils (1.2-6.7) k/cumm Absolute Lymphocytes (1.2-3.4) k/cumm Absolute Monocytes (0.11-0.7) k/cumm Absolute Eosinophils (0.0-0.7) k/cumm Absolute Basophils (0.0-0.2) k/cumm D-Dimer (<500) ng/mlFEU Sodium (136-145) mmol/L Potassium (3.5-5.1) mmol/L Chloride (98-107) mmol/L Carbon Dioxide (21.0-32.0) mmol/L Anion Gap (3-11) mmol/L BUN (7-18) mg/dL Creatinine (0.55-1.02) mg/dL Estimated GFR/1.73 m2 (mL/min/1.73m2) Glucose (74-106) mg/dL Calcium (8.5-10.1) mg/dL Magnesium (1.8-2.4) mg/dL 1.6 L Total Bilirubin (0.2-1.0) mg/dL AST (15-37) U/L ALT (14-59) U/L Alkaline Phosphatase (46-116) U/L Troponin I (<0.06) ng/mL < 0.05 NT-Pro-B Natriuret Pep (<300) pg/mL 1024 H Total Protein (6.4-8.2) g/dL Albumin (3.4-5.0) g/dL Procalcitonin ng/mL Urine Color (Yellow) Yellow Urine Clarity (Clear) Clear Urine pH (5-8) 6.0 Ur Specific [place] (1.005-1.025) <= 1.005 Urine Protein (Negative) mg/dL Negative Urine Ketones (Negative) mg/dL Negative Urine Blood (Negative) Negative Urine Nitrite (Negative) Positive H Urine Bilirubin (Negative) Negative Urine Urobilinogen (Up TO 0.2) EU/dL 0.2 Ur Leukocyte Esterase (Negative) Negative Urine RBC (0-2) HPF 0-2 Urine WBC (0-5) HPF 0-2 Ur Epithelial Cells (Negative) HPF Negative Urine Crystals (Negative) HPF Negative Urine Bacteria (Negative) HPF Many Urine Casts (Negative) LPF Negative Urine Mucus (Negative) Negative Ur Culture Indicated? Yes Urine Glucose (Negative) mg/dL Negative Range/Units 09/04/19 09:25 WBC (4.4-10.8) k/cumm RBC (4.00-5.20) m/cumm Hgb (12.0-15.5) g/dL Hct (36.0-46.0) % MCV (80-95) fL MCH (27.0-33.0) pg MCHC (32.0-36.0) g/dL RDW (11.7-14.6) % Plt Count (130-400) x1000/uL MPV (8.0-11.0) fL Immature Gran % % Neutrophils % Lymphocytes % Monocytes % Eosinophils % Basophils % Absolute Neutrophils (1.2-6.7) k/cumm Absolute Lymphocytes (1.2-3.4) k/cumm Absolute Monocytes (0.11-0.7) k/cumm Absolute Eosinophils (0.0-0.7) k/cumm Absolute Basophils (0.0-0.2) k/cumm D-Dimer (<500) ng/mlFEU Sodium (136-145) mmol/L Potassium (3.5-5.1) mmol/L Chloride (98-107) mmol/L Carbon Dioxide (21.0-32.0) mmol/L Anion Gap (3-11) mmol/L BUN (7-18) mg/dL Creatinine (0.55-1.02) mg/dL Estimated GFR/1.73 m2 (mL/min/1.73m2) Glucose (74-106) mg/dL Calcium (8.5-10.1) mg/dL Magnesium (1.8-2.4) mg/dL Total Bilirubin (0.2-1.0) mg/dL AST (15-37) U/L ALT (14-59) U/L Alkaline Phosphatase (46-116) U/L Troponin I (<0.06) ng/mL NT-Pro-B Natriuret Pep (<300) pg/mL Total Protein (6.4-8.2) g/dL Albumin (3.4-5.0) g/dL Procalcitonin ng/mL 0.2 Urine Color (Yellow) Urine Clarity (Clear) Urine pH (5-8) Ur Specific [place] (1.005-1.025) Urine Protein (Negative) mg/dL Urine Ketones (Negative) mg/dL Urine Blood (Negative) Urine Nitrite (Negative) Urine Bilirubin (Negative) Urine Urobilinogen (Up TO 0.2) EU/dL Ur Leukocyte Esterase (Negative) Urine RBC (0-2) HPF Urine WBC (0-5) HPF Ur Epithelial Cells (Negative) HPF Urine Crystals (Negative) HPF Urine Bacteria (Negative) HPF Urine Casts (Negative) LPF Urine Mucus (Negative) Ur Culture Indicated? Urine Glucose (Negative) mg/dL ECG Data Attestation: I personally reviewed and interpreted this ECG (s) as follows: Interpretation: EKG shows A. fib at 125, normal axis, nonspecific ST changes, no STEMI Repeat EKG shows fibrillation at 87, normal axis, nonspecific ST changes without significant change from prior, no STEMI HPI General Mode of arrival: EMS. Date/Time Provider Initiated Documentation: 09/03/19 09:16. Limitations to Documentation: no limitations. Information obtained by: patient, EMS, RN notes reviewed and old records reviewed. HPI Narrative: Shantel Bee is a 59-year-old woman with a history of atrial fibrillation, alcohol abuse, anxiety who presented to the emergency department with anxiety. Patient reports that this morning she began to feel somewhat panicky, which is not unusual for her. Patient reports that she felt mildly short of breath with this, as she typically does whenever her anxiety escalates. Patient reports that she called EMS for this. Patient reports that 2 days ago she tripped over her cat, and fell to the ground. She states that she landed on her tailbone, and then fell back and hit her shoulder. Patient reports that she did hit her head lightly. She denies loss of consciousness, states that she remembers the event in its entirety. Patient reports that since the fall she has had pain in her tailbone and mild pain in bilateral hips. She denies any other pain. Patient reports that she has been walking at home and up and down stairs without issue. She denies recent illness. She denies fevers, vomiting, diarrhea, numbness, weakness, cough, swelling. Patient reports that she drinks several beers per day, and had a half a can of beer this morning to help with her anxiety. She has been drinking daily including yesterday. Patient states that she does not feel like she is in alcohol withdrawal. Patient reports that although she has not taken her diltiazem consistently in the past, she has taken it every day this week including this morning. Patient was admitted here 08/15 for rapid A. fib and then again 08/20 for rapid A. fib and CHF. Patient states that she has been eating meals as usual. Patient was found to be in A. fib a rate 1 40-1 50 at home by EMS, patient was given 10 mg IV diltiazem en route. Related Data Home Medications Medication Instructions Recorded Confirmed cyanocobalamin (vitamin B-12) 1,000 mcg PO DAILY #30 tab 04/18/19 09/04/19 [Vitamin B-12] magnesium oxide 400 mg PO DAILY #30 tab 04/18/19 09/04/19 multivitamin [Multiple Vitamins] 1 tab PO DAILY #30 tab 04/18/19 09/04/19 diltiazem HCl [Cardizem CD] 240 mg PO DAILY 60 Days #60 cap 08/09/19 09/04/19 aspirin 81 mg PO DAILY #0 tab 08/17/19 09/04/19 atorvastatin 40 mg PO DAILY #30 tab 08/17/19 09/04/19 pantoprazole 40 mg PO DAILY #30 tab 08/17/19 09/04/19 Previous Rx's Medication Instructions Recorded cyanocobalamin (vitamin B-12) 1,000 mcg PO DAILY #30 tab 04/18/19 [Vitamin B-12] magnesium oxide 400 mg PO DAILY #30 tab 04/18/19 multivitamin [Multiple Vitamins] 1 tab PO DAILY #30 tab 04/18/19 diltiazem HCl [Cardizem CD] 240 mg PO DAILY 60 Days #60 cap 08/09/19 aspirin 81 mg PO DAILY #0 tab 08/17/19 atorvastatin 40 mg PO DAILY #30 tab 08/17/19 pantoprazole 40 mg PO DAILY #30 tab 08/17/19 Allergies Allergy/AdvReac Type Severity Reaction Status Date / Time No Known Allergies Allergy Unverified 09/04/19 10:36 General Stated Complaint: Anxiety DANNY: 3 Review of Systems Narrative: Constitutional: denies fevers Eyes: denies eye pain ENT: denies ear pain, dental pain, sore throat Cardiovascular: denies chest pain, palpitations Respiratory: denies cough, reports SOB GI: denies abdominal pain, vomiting, diarrhea : denies flank pain MSK: denies back pain, neck pain, myalgias, reports b/l hip pain, tailbone pain as per HPI Skin: denies rash Neuro: denies headaches, numbness, weakness [facility] Medical History (Updated 09/04/19 @ 14:03 by Amy Chávez MD) Alcohol abuse (Chronic) Anxiety and depression (Inactive 08/06/14) Atrial fibrillation with rapid ventricular response (Inactive) Chronic diastolic CHF (congestive heart failure) (Acute) Opiate addiction (Inactive 08/06/14) in recovery. weaned off suboxone through [facility] 05/05/14 Pulmonary nodules (Inactive) SAH (subarachnoid hemorrhage) (Inactive) Tobacco abuse (Chronic 07/07/17) Surgical History bunionectomy (Inactive) lamontangen a few years ago 2005ish History of bilateral tubal ligation (Acute) Social History Smoking/Tobacco Use Status: Current every day Tobacco Type: cigarettes Alcohol Intake: current Alcohol Intake frequency: 0-2 drinks per day Alcohol type: beer Drug use: Never Substance use type: does not use Details: Pt reports half a beer today. Household members: significant other Do you feel safe at home: Yes Do you feel safe in your relationship?: Yes Additional Social history: Lives with long-term boyfriend Stepan in [place]. Last work at [employer] but has not worked in years. 2 adult children, including daughter in [place] and son and 2 baby grandkids and [place] Exam Narrative Exam Narrative: Constitutional: anxious but [id number]-mstrxgmks, pleasant, conversing normally HENT: head atraumatic/normocephalic/normal inspection, mucous membranes moist Eyes: conjunctiva normal, sclera normal, pupils 3mm b/l Neck: no stridor, normal ROM, trachea midline Chest: normal inspection Resp: normal work of breathing, LCTAB Cardio: tachycardic rate, irregularly irregular rhythm, no murmur appreciated GI: abdomen soft, non-tender, non-distended Back: normal inspection, no rash, tenderness of the sacrum without crepitus or deformity, no tenderness of the thoracic or lumbar spine, Skin: warm, dry, normal color, no rash Neuro: alert, not altered, grossly non-focal, normal tone Ext: +1 b/l lower ext edema, no posterior calf TTP, mild bilateral tenderness of the hips, full range of motion of the hips. DP pulses intact and symmetric. Psych: somewhat anxious mood, normal affect, normal behavior Course Vital Signs Vital signs: Vital Signs Temperature 36.7 C 09/03/19 09:02 Pulse 124 H 09/03/19 09:02 Respiratory Rate 29 H 09/03/19 09:02 Blood Pressure 101/71 09/03/19 09:02 Pulse Oximetry 93 L 09/03/19 09:02 Temperature 36.7 C 09/03/19 09:02 Pulse 124 H 09/03/19 09:02 Respiratory Rate 29 H 09/03/19 09:02 Respiratory Effort Non-Labored 09/03/19 09:10 Blood Pressure 101/71 09/03/19 09:02 Blood Pressure Position Supine 09/03/19 09:02 Pulse Oximetry 93 L 09/03/19 09:02 Oxygen Delivery Method Room Air 09/03/19 09:02 Oxygen Flow Rate 0 09/03/19 09:02 Pain Level 7 09/03/19 09:02
[2019-09-03] MEDS: dilTIAZem 125 MG in Normal Saline 100 ML 10 MG IV (09:32)
[2019-09-03 09:40] LABS: Abs Immature Grans 0.02 k/cumm (0.0-0.09); Absolute Basophil Count 0.01 k/cumm (0.0-0.2); Absolute Eosinophil Count 0.01 k/cumm (0.0-0.7); Absolute Lymphocyte Count 0.63 k/cumm (1.2-3.4); Absolute Monocyte Count 1.12 k/cumm (0.11-0.7); Absolute Neutrophil Count 6.86 k/cumm (1.2-6.7); Basophils % 0.1; Eosinophils % 0.1; HCT 35.6 % (36.0-46.0); HGB 12.8 g/dL (12.0-15.5); Immature Grans % 0.2 %; Lymphocytes % 7.3; Mean Corpuscular Hemoglobin 35.8 pg (27.0-33.0); Mean Corpuscular Volume 99.4 fL (80-95); Mean Platelet Volume 9.5 fL (8.0-11.0); Monocytes % 12.9; Neutrophils % 79.4; Platelet Count 233 x1000/uL (130-400); RBC 3.58 m/cumm (4.00-5.20); RBC Distribution Width 12.6 % (11.7-14.6); White Blood Cell Count 8.65 k/cumm (4.4-10.8)
[2019-09-03] MEDS: LORazepam 1 MG TAB PO (09:43)
[2019-09-03 10:09] LABS: D-Dimer 7334 ng/mlFEU (<500)
[2019-09-03 10:10] LABS: ALT 63 U/L (14-59); AST 142 U/L (15-37); Albumin 2.5 g/dL (3.4-5.0); Alkaline Phosphatase 247 U/L (46-116); BUN 1 mg/dL (7-18); Bilirubin, Total 1.8 mg/dL (0.2-1.0); CREATININE 0.57 mg/dL (0.55-1.02); Calcium 8.1 mg/dL (8.5-10.1); Chloride 100 mmol/L (98-107); Glucose 101 mg/dL (74-106); Potassium 3.5 mmol/L (3.5-5.1); Sodium 135 mmol/L (136-145); Total Protein 6.8 g/dL (6.4-8.2)
[2019-09-03 10:11] LABS: Troponin I < 0.05 ng/mL (<0.06)
[2019-09-03 10:16] LABS: Magnesium 1.6 mg/dL (1.8-2.4); NT-proBNP 1024 pg/mL (<300)
--- NOTE | 2019-09-03 10:28 | DI.RAD_ITS ---
EXAM: XR PELVIS AP CLINICAL HISTORY: fall, b/l hip pain. TECHNIQUE: 2D digital imaging was performed. COMPARISON: No exams were available for comparison FINDINGS: BONES: No acute fracture is present. No bony destructive lesion is seen. JOINTS: No dislocation present. There is spurring from both acetabula and femoral heads as well as gr eater trochanters. SOFT TISSUE: Normal. IMPRESSION: Degenerative changes of the hips. No acute abnormality. DATA REPOSITORY: RADIATION DOSE DELIVERED:
--- NOTE | 2019-09-03 10:29 | DI.RAD_ITS ---
EXAM: XR CHEST 1V IN DI DEPT CLINICAL HISTORY: SOB TECHNIQUE: 2D digital imaging was performed. COMPARISON: CR XR PORTABLE CHEST AP from 08/20/[address] CHEST PE CTA from 08/22/2019 CR XR PORTABLE CHEST AP from 08/24/2019 FINDINGS: The heart is enlarged. There is a small right and moderate left pleural effusion, increasing from th e previous exam. No infiltrate or pulmonary edema is seen. No pneumothorax. IMPRESSION: Cardiomegaly and bilateral pleural effusions, left greater than right. DATA REPOSITORY: RADIATION DOSE DELIVERED:
--- NOTE | 2019-09-03 10:30 | DI.RAD_ITS ---
EXAM: XR SACRUM COCCYX CLINICAL HISTORY: fall, sacral pain. TECHNIQUE: 2D digital imaging was performed. COMPARISON: No exams were available for comparison FINDINGS: BONES: No acute fracture is present. No bony destructive lesion is seen. JOINTS: Mild degenerative changes of the SI joints and hip joints IMPRESSION: No acute abnormality. DATA REPOSITORY: RADIATION DOSE DELIVERED:
--- NOTE | 2019-09-03 10:45 | DI.CT_ITS ---
EXAM: CT CHEST PE CTA CLINICAL HISTORY: SOB. TECHNIQUE: Imaging Protocol: Axial CT angiography was performed with multi-slice acquisition and mu lti-planar and/or 3D reconstructions. CONTRAST MATERIAL: Intravenous: Omnipaque 350 Contrast volume:70 ml COMPARISON: No exams were available for comparison FINDINGS: Pulmonary Arteries: No evidence of filling defect to suggest pulmonary emboli. Tracheobronchial tree: Patent. Mediastinum and Jaye: No dominant adenopathy. Pulmonary parenchyma: Suboptimally evaluated due to respiratory motion. Bibasilar compressive atelec tasis. Pleura: Moderate-sized bilateral pleural effusions.. Heart: The heart is moderately dilated. Small to moderate-sized pericardial effusion. Aorta: Thoracic aorta non-dilated. Mild calcification. No dissection. Upper abdomen: Severe hepatic steatosis. Bones: Degenerative changes in the spine. IMPRESSION: Bilateral pleural effusions and compressive atelectasis. Small to moderate-sized pericardial effusio n. No evidence of pulmonary embolism. RADIATION DOSE DELIVERED: Total DLP DATA REPOSITORY: All CT scans at this facility are submitted to the National Radiology Data Registry (NRDR) Dose Index Registry (DIR) with the [employer] (ACR). RADIATION OPTIMIZATION: All CT scans at this facility use at least one of these dose optimization te chniques: automated exposure control; mA and/or kV adjustment per patient size (includes targeted exa ms where dose is matched to clinical indication); or iterative reconstruction.
[2019-09-03] MEDS: Omnipaque 350 MG/ML 50 ML BTL 100 ML IV (11:14)
[2019-09-03] MEDS: Normal Saline - Diluent 50 ML VIAL IV (11:46)
[2019-09-03] MEDS: Normal Saline Flush 10 ML SYR IV (11:47)
[2019-09-03 12:34] LABS: Bilirubin Negative (Negative); Blood Negative (Negative); Clarity Clear (Clear); Glucose Negative (Negative); Ketones Negative (Negative); Leukocyte Esterase Negative (Negative); Nitrite Positive (Negative); Specific Gravity <= 1.005 (1.005-1.025); Urobilinogen 0.2 EU/dL (Up TO 0.2)
[2019-09-03 12:37] LABS: Troponin I < 0.05 ng/mL (<0.06)
[2019-09-03 12:54] LABS: Bacteria Many HPF (Negative); C & S Indicated? Yes; Casts Negative LPF (Negative); Crystals Negative HPF (Negative); Epithelial Cells Negative HPF (Negative); Mucus Negative (Negative); RBC 0-2 HPF (0-2); WBC 0-2 HPF (0-5)
--- NOTE | 2019-09-04 09:33 | PDOC.ERCMPRO ---
- If Service Date Differs Date of service: 09/03/19 Time of Service: 13:40 Care Management Progress Note CM meets briefly with patient to remind her of her appointment with her PCP at 3:30 pm today. Patient reports she didn't know she had an appointment with her PCP today and states she's not sure she'll be able to make the appointment. CM instructs her to call [facility] to cancel and reschedule the appointment if she is unable to keep it.
[2019-09-04 14:41] LABS: Procalcitonin 0.2 ng/mL
== END 2019-09-03 13:20 | disposition left against medical advice (07) ==
PROVIDERS: Emergency Provider Student in an Organized Health Care Education/Training Program; PCP Nurse Practitioner
DX: I48.91 Unspecified atrial fibrillation (principal); I47.2 Ventricular tachycardia; I30.9 Acute pericarditis, unspecified; I50.32 Chronic diastolic (congestive) heart failure; M53.3 Sacrococcygeal disorders, not elsewhere classified; W01.0XXA Fall on same level from slipping, tripping and stumbling without subsequent striking against object, initial encounter; F41.9 Anxiety disorder, unspecified; E83.42 Hypomagnesemia; R79.1 Abnormal coagulation profile; F10.10 Alcohol abuse, uncomplicated; Z53.29 Procedure and treatment not carried out because of patient's decision for other reasons
CPT/HCPCS: 36415; 71275; 80053; 84145; 87077; 93005; 96365; 96366; 96376; 99285; 71045; 72170; 72220; 81003; 81015; 83735; 83880; 84484; 85025; 85379; 87086; 87186; 93010; Q9967

== ENCOUNTER 2019-09-04 10:30 | Inpatient (IN) | payer OTHER, SELFPAY ==
[2019-09-04] VITALS (115 sets, daily range): BP systolic 83–116; BP diastolic 62–84; PULSE 58–152; RESP 8–30; TEMP 35.7–36.7; O2SAT 92–97
--- NOTE | 2019-09-04 | DI.US_ITS ---
EXAM: US EXTREMITY VENOUS BI CLINICAL HISTORY: edema BLEs, concern for DVT. TECHNIQUE: Bilateral lower extremity venous ultrasound performed using grayscale, color-flow, and sp ectral Doppler analysis. COMPARISON: No exams were available for comparison FINDINGS: The bilateral common femoral, femoral and popliteal veins demonstrate normal compressibility, augment ation, and color Doppler. The posterior tibial veins are patent. No superficial thrombophlebitis or Wagoner's cyst is seen. IMPRESSION: Right: Negative for DVT Left: Negative for DVT DATA REPOSITORY:
--- NOTE | 2019-09-04 | DI.US_ITS ---
APPROVED REPORT EXAM: Comprehensive 2D, Doppler, and color-flow Echocardiogram Patient Location: In-Patient Room/Bed: [id number] Spot Billing Clerk: Apoorva Hsu RDCS (AE) Indications: Limited follow up to pericardial effusion Other Information Study Quality: Adequate Conclusion Trivial circumferential pericardial effusion, unchanged from previous. There are no echocardiographi c findings of cardiac tamponade Left ventricular size, wall thickness, and systolic function is within the range of normal, unchanged Wall motion Left Ventricle The left ventricle is normal size. The left ventricular systolic function is normal. The left ventric ular ejection fraction is within the normal range. LVEF is 50-55%. Great Vessels The IVC collapses <50% with inspiration. Pericardium Trivial circumferential pericardial effusion.
--- NOTE | 2019-09-04 | RT.EKG_ITS ---
APPROVED REPORT Exam: Resting ECG Patient Location: I HR:87 bpm ECG Measurements Heart Rate 87 AXIS SD [id number] P [id number] QRSd 88 QRS 48 QT 426 T [id number] QTc 513 <Conclusion> Atrial fibrillation...V-rate 73- 90, irreg A-activity Anteroseptal infarct, age indeterminate...Q >35mS, T neg, V1-V2 Prolonged QT interval...QTc >500mS
--- NOTE | 2019-09-04 | DI.US_ITS ---
EXAM: US ABDOMEN CLINICAL HISTORY: concern for cirrhosis TECHNIQUE: Ultrasound abdomen performed using standard protocol. COMPARISON: CT CT CHEST PE CTA from 09/03/2019 FINDINGS: LIVER: Liver isn't enlarged and shows increased echogenicity, consistent with fatty infiltration.. N o focal liver lesions are seen.. GALLBLADDER: No evidence of cholelithiasis. No evidence of wall thickening. No pericholecystic fluid identified. ARMSTRONG'S SIGN: Negative. BILIARY SYSTEM: No intrahepatic or extrahepatic biliary ductal dilation. KIDNEYS: Kidneys are symmetric in size. No evidence of renal calculi. No evidence of hydronephrosis. No renal mass or cyst identified. PANCREAS: Normal where visualized. SPLEEN: Not enlarged. ABDOMINAL AORTA AND IVC: Visualized portions normal caliber. ASCITES: None seen. IMPRESSION: Enlarged fatty liver. No specific signs of cirrhosis. DATA REPOSITORY:
--- NOTE | 2019-09-04 10:30 | RT.EKG_ITS ---
APPROVED REPORT Exam: Resting ECG Patient Location: E HR:106 bpm ECG Measurements Heart Rate 106 AXIS DC [id number] P [id number] QRSd 85 QRS 58 QT 263 T [id number] QTc 351 <Conclusion> Atrial fibrillation...V-rate 71-155, irreg A-activity Q >35mS, T neg, V2-V5 I have reviewed and interpreted ECG and agree with software generated interpretation.
--- NOTE | 2019-09-04 10:36 | W.ED.GENAD ---
Discharge Plan Disposition Patient Disposition: [facility] INPATIENT Condition: Critical Discharge Details Chief Complaint: GenMedical Clinical Impression: Pericardial effusion, Chest pain, Atrial fibrillation, Pleural effusion, bacterial, Alcohol dependence Admit Date/Time: 09/04/19 11:34 Admit Provider: Amy Chávez Attending Provider: Angelito Davey Primary Care Provider: Amarilys Barrera ED Provider: Bulmaro Reeder Hospital Course Hospital Course: Patient is a 59-year-old female with history of alcohol abuse including previous admissions for alcohol withdrawal, chronic atrial fibrillation not on anticoagulation secondary to medical noncompliance, chronic diastolic heart failure who initially presented emergency department with complaints of chest pain shortness of breath and leg swelling and anxiety. Patient been seen in the emergency department on multiple previous visits for similar complaints as well as left the emergency room AGAINST MEDICAL ADVICE. On the day prior to mission she had a CT of her chest that demonstrated bilateral pleural effusions and compressive atelectasis as well as moderate sized pericardial effusion. She had left the emergency department AGAINST MEDICAL ADVICE. Previous echocardiogram from August 20, 2019 showed normal left ventricular systolic function and a trivial pericardial effusion. She agreed to admission this time and was admitted to the medical/surgical floor. Over the ensuing days she developed acute alcohol withdrawal and required benzodiazepines in high doses and eventually required a Precedex drip and got transferred to the intensive care unit. She had a witnessed choking spell on September 05, 2019 and subsequently ended up in respiratory failure and became intubated on September 06, 2019. She was placed on broad-spectrum antibiotics including Zosyn which was later broadened to vancomycin and Levaquin. She remained intubated on the Grubbs ventilator and ASV mode and demonstrated improving pulmonary parameters including a successful spontaneous breathing trial on September 10, 2019. She had shown improvement in her inflammatory markers with normalization of her leukocytosis and improvement in her procalcitonin level chest x-ray continued to show basilar consolidation and a pleural effusion but clinically she seemed to be improving and had completed her course of treatment for alcohol withdrawal which included Precedex and medazepam drip as well as IV phenobarbital. On September 10, 2019 she was extubated in the morning but because of prolonged sedation was not able to adequately support her breathing and post extubation had a lot of secretions and required reintubation. Her hospitalization has been complicated by hypotension that is required norepinephrine drip in addition to the broad-spectrum antibiotics. She required a furosemide drip to manage her fluid status. On the morning of discharge she was hemodynamically stable although remained on a norepinephrine drip. Phone consultation was placed with [facility] and her case was discussed with Dr. Chong Zhang, line up machine operator, who accepted the patient for transfer. Patient will be admitted to the service of Dr. Eliane Houser, ICU Blue team at [facility]. The patient's legal guardian, Trish Estrada (phone [phone]) was updated on the patient's condition and the need for transfer and she is in agreement with the transfer. Discharge Instructions Instructions: Aspiration Pneumonia (DC), Alcohol Withdrawal (DC) Discharge Data Discharge Date/Time-TO BE ENTERED AT DEPARTURE: 09/04/19 11:59 Medical Decision Making 1040??59-year-old female with multiple medical problems including history of alcohol abuse, atrial fibrillation, medication noncompliance, here with chest pain and anxiety. Patient was seen here yesterday in the emergency department, hospitalization was recommended and patient left against medical advice. She is agreeable to admission and treatment at this time. She is interested in detox for alcohol dependence. Obtained and reviewed as medical record/CT chest 09/03/2019 interpreted by radiology: IMPRESSION:Bilateral pleural effusions and compressive atelectasis. Small to moderate-sized pericardial effusion. No evidence of pulmonary embolism. We will give Ativan 1 mg IV. Plan to obtain CIWA score and monitor closely. Will give thiamine 100 mg IV. Consider ACS versus CHF versus symptomatic pericardial effusion. Patient does have bilateral leg swelling patient does have bilateral leg swelling. I will check a BNP to trend that she had an elevated BNP recently. -- Screening ECG was reviewed and interpreted by me: Atrial fibrillation, 106 bpm, normal axis, no STEMI. --Initial labs reviewed: Patient with mild hyponatremia, mild hypomagnesemia, elevated AST, ALT, total bilirubin, and alkaline phosphatase, initial troponin negative. BNP remains elevated at 1248. 1120 --I spoke with Dr. Chávez who will accept the patient for admission to the ICU given concern for potential future alcohol withdrawal. 1149??notified by nursing that patient has systolic blood pressures 89. Patient asymptomatic. Her MAP is 70. Will give a crystalloid bolus 250 mL and reassess. HPI General Mode of arrival: EMS. Date/Time Provider Initiated Documentation: 09/04/19 10:31. Limitations to Documentation: no limitations. Information obtained by: patient. HPI Narrative: 59-year-old female with multiple medical problems including history of alcohol abuse, atrial fibrillation, medication noncompliance, here with chest pain and anxiety. Patient was seen here yesterday in the emergency department, hospitalization was recommended and patient left against medical advice. She is agreeable to admission and treatment at this time. She is interested in detox for alcohol dependence. Chest pain is mild and intermittent. Pain is localized to diffuse chest. Described as sharp. No radiation. She notes associated dyspnea on exertion. Anxiety is moderate with no modifiers. Related Data Home Medications Medication Instructions Recorded Confirmed cyanocobalamin (vitamin B-12) 1,000 mcg PO DAILY #30 tab 04/18/19 09/04/19 [Vitamin B-12] magnesium oxide 400 mg PO DAILY #30 tab 04/18/19 09/04/19 multivitamin [Multiple Vitamins] 1 tab PO DAILY #30 tab 04/18/19 09/04/19 diltiazem HCl [Cardizem CD] 240 mg PO DAILY 60 Days #60 cap 08/09/19 09/04/19 aspirin 81 mg PO DAILY #0 tab 08/17/19 09/04/19 atorvastatin 40 mg PO DAILY #30 tab 08/17/19 09/04/19 pantoprazole 40 mg PO DAILY #30 tab 08/17/19 09/04/19 Previous Rx's Medication Instructions Recorded cyanocobalamin (vitamin B-12) 1,000 mcg PO DAILY #30 tab 04/18/19 [Vitamin B-12] magnesium oxide 400 mg PO DAILY #30 tab 04/18/19 multivitamin [Multiple Vitamins] 1 tab PO DAILY #30 tab 04/18/19 diltiazem HCl [Cardizem CD] 240 mg PO DAILY 60 Days #60 cap 08/09/19 aspirin 81 mg PO DAILY #0 tab 08/17/19 atorvastatin 40 mg PO DAILY #30 tab 08/17/19 pantoprazole 40 mg PO DAILY #30 tab 08/17/19 Allergies Allergy/AdvReac Type Severity Reaction Status Date / Time No Known Allergies Allergy Unverified 09/04/19 10:36 General Stated Complaint: GenMedical DANNY: 3 Review of Systems All systems reviewed & are unremarkable except as noted in HPI and below Constitutional Constitutional: Denies fever(s) and Reports lethargy Cardiovascular Cardiovascular: Reports dyspnea on exertion Respiratory Respiratory: Reports dyspnea on exertion [facility] Medical History (Updated 09/11/19 @ 13:00 by Angelito Davey) Alcohol abuse (Chronic) Anxiety and depression (Inactive 08/06/14) Atrial fibrillation with rapid ventricular response (Inactive) Chronic diastolic CHF (congestive heart failure) (Acute) Opiate addiction (Inactive 08/06/14) in recovery. weaned off suboxone through [facility] 05/05/14 Pulmonary nodules (Inactive) SAH (subarachnoid hemorrhage) (Inactive) Tobacco abuse (Chronic 07/07/17) Surgical History bunionectomy (Inactive) lamontangen a few years ago 2005ish History of bilateral tubal ligation (Acute) Social History Smoking/Tobacco Use Status: Current every day Tobacco Type: cigarettes Alcohol Intake: current Alcohol Intake frequency: 0-2 drinks per day Alcohol type: beer Drug use: Never Substance use type: does not use Details: Pt reports half a beer today. Household members: significant other Do you feel safe at home: Yes Do you feel safe in your relationship?: Yes Additional Social history: Lives with long-term boyfriend Stepan in [place]. Last work at [employer] but has not worked in years. 2 adult children, including daughter in [place] and son and 2 baby grandkids and [place] Exam Const General: cooperative and does not appear intoxicated Orientation: alert and awake [facility] Head: normocephalic and atraumatic Mouth: moist mucous membranes Eyes Conjunctivae: normal conjunctivae Sclera: normal sclerae EOM: EOM intact bilaterally Neck Neck: trachea midline and supple Resp Auscultation: clear to auscultation bilaterally, no rales, no rhonchi and no wheezes Cardio Jugular venous pressure: no JVD Rate: tachycardic Rhythm: abnormal rhythm irregularly irregular GI Palpation: soft, not firm, no guarding, no masses, not rigid and nontender Skin General skin exam: ecchymosis (legs) Neuro General: patient alert, patient awake, patient oriented x3 and tone normal Speech: speech normal Motor: tremor Extrem General: edema Laterality: bilateral (1+ lower legs) Psych Appearance: grossly normal Mental Status: mental status grossly normal Speech and Movement: speech and movement normal Course Vital Signs Vital signs: Vital Signs Temperature 36.7 C 09/04/19 10:31 Pulse 128 H 09/04/19 10:31 Respiratory Rate 20 09/04/19 10:31 Blood Pressure 112/84 09/04/19 10:31 Pulse Oximetry 95 09/04/19 10:31 Temperature 36.7 C 09/04/19 10:31 Pulse 128 H 09/04/19 10:31 Respiratory Rate 20 09/04/19 10:31 Respiratory Effort Non-Labored 09/04/19 10:35 Blood Pressure 112/84 09/04/19 10:31 Blood Pressure Position Sitting 09/04/19 10:31 Pulse Oximetry 95 09/04/19 10:31 Oxygen Delivery Method Room Air 09/04/19 10:31 Oxygen Flow Rate 0 09/04/19 10:31 Pain Level 0 09/04/19 10:31
[2019-09-04] MEDS: LORazepam 2 MG/ML VIAL 1 MG IVP (11:00)
[2019-09-04 11:01] LABS: Abs Immature Grans 0.03 k/cumm (0.0-0.09); Absolute Basophil Count 0.02 k/cumm (0.0-0.2); Absolute Eosinophil Count 0.03 k/cumm (0.0-0.7); Absolute Lymphocyte Count 0.68 k/cumm (1.2-3.4); Absolute Monocyte Count 1.04 k/cumm (0.11-0.7); Absolute Neutrophil Count 7.15 k/cumm (1.2-6.7); Basophils % 0.2; Eosinophils % 0.3; HCT 38.2 % (36.0-46.0); HGB 13.6 g/dL (12.0-15.5); Immature Grans % 0.3 %; Lymphocytes % 7.6; Mean Corp. HGB Concentration 35.6 g/dL (32.0-36.0); Mean Corpuscular Hemoglobin 35.9 pg (27.0-33.0); Mean Corpuscular Volume 100.8 fL (80-95); Mean Platelet Volume 9.5 fL (8.0-11.0); Monocytes % 11.6; Platelet Count 253 x1000/uL (130-400); RBC 3.79 m/cumm (4.00-5.20); White Blood Cell Count 8.95 k/cumm (4.4-10.8)
[2019-09-04] MEDS: THIAMINE 100 MG in Normal Saline 100 ML 200 MG IVPB (11:01)
[2019-09-04 11:13] LABS: INR 1.2 (0.9-1.1); PTT Activated 30.6 sec (21.0-31.4); Prothrombin Time 12.1 sec (9.3-11.0)
[2019-09-04 11:14] LABS: ALT 91 U/L (14-59); AST 223 U/L (15-37); Alkaline Phosphatase 311 U/L (46-116); Anion Gap 10.7 mmol/L (3-11); BUN 1 mg/dL (7-18); Bilirubin, Total 2.3 mg/dL (0.2-1.0); CO2 25.3 mmol/L (21.0-32.0); CREATININE 0.64 mg/dL (0.55-1.02); Calcium 8.7 mg/dL (8.5-10.1); Chloride 98 mmol/L (98-107); Glucose 105 mg/dL (74-106); Magnesium 1.6 mg/dL (1.8-2.4); Potassium 3.5 mmol/L (3.5-5.1); Sodium 134 mmol/L (136-145); Total Protein 7.9 g/dL (6.4-8.2); Troponin I < 0.05 ng/mL (<0.06)
[2019-09-04 11:18] LABS: NT-proBNP 1248 pg/mL (<300)
[2019-09-04] MEDS: Furosemide 20 MG/2 ML VIAL IVP ×2 (12:44→16:42)
[2019-09-04] MEDS: MAGNESIUM SULFATE 2 GM/50 ML BAG IVPB (12:44)
[2019-09-04] MEDS: Normal Saline Flush 10 ML SYR IVP ×2 (12:45→16:43)
[2019-09-04] MEDS: Metoprolol 5 MG/5 ML VIAL 2.5 MG IVP (12:47)
--- NOTE | 2019-09-04 13:46 | HPE_ITS ---
Date of service: 09/04/19 Time of Service: 13:00 Assessment and Plan Assessment and plan (1) Acute on chronic diastolic CHF (congestive heart failure), NYHA class 1: Status: Acute Assessment and plan: Repeat echo to ensure that this isn't partially related to worsening of a pericardial effusion. Diurese, monitoring I/O's, daily weights, Cr. Recheck TSH. (2) Bilateral pleural effusion: Status: Acute Assessment and plan: Check procalcitonin to ensure that there is not a bacterial component - however, clinically this is due to CHF/uncontrolled Afib. Also, possibly due to underlying hypothyroidism - rechecking TSH. Finally, need to ensure the patient does not have cirrhosis - obtain US abdomen. For now, diurese. No antibiotics unless spikes a fever. (3) Atrial fibrillation: Status: Chronic Assessment and plan: Rate is moderately well controlled right now but we have experience with this not being controlled when the patient is actively withdrawing. Continue home diltiazem. PRN IV lopressor needed. May requiring diltiazem gtt. (4) Chest pain: Status: Acute Assessment and plan: R/o ACS. Obtain echo to ensure that the pericardial effusion did not increase in size. Write for PPI/carafate as esophagitis is likely. (5) Pericardial effusion: Status: Acute Assessment and plan: As above. Repeat echo, check TSH. (6) Alcohol dependence: Status: Acute Assessment and plan: Monitor for withdrawal on CIWA (usually requires IV ativan). Admit to ICU. Provide vitamins. (7) DVT prophylaxis: Status: Acute Assessment and plan: SC heparin (8) Discharge planning issues: Status: Acute Assessment and plan: Full code Admit to ICU. History of Present Illness History of Present Illness Chief Complaint: chest pain, shortness of breath, leg swelling, anxiety Narrative: Ms Bee is a 59 year old female with PMHx of alcohol abuse (last drink this morning), alcohol withdrawal, chronic Afib, not on anticoagulation due to medical noncompliance, chronic diastolic CHF, who presented to [facility] ED today complaining of feeling anxious, bilateral leg swelling which has been bothering her, shortness of breath at rest, and midsternal chest pain, sharp, without radiation, at rest, self-limited. She was seen in the ED on 09/02, 08/28, 08/26, 08/24, for similar complaints. She states she took her medications this morning. She had a CTA of her chest in the ED yesterday showing bilateral pleural effusions with compressive atelectasis as well as small to moderate-sized pericardial effusion. She was offered admission at that time, but left ED AMA. On the echo from 08/20/2019, pericardial effusion was felt to be trivial. The patient endorses cough productive of yellow sputum (chronic) that she attributes to smoking (advised to quit). The patient reports 2 pillow orthopnea, but no PND. She agrees to stay for admission today. Denies contac with any known COVID positive patients, states she has worn a mask when outside, and has not traveled outside of the immediate area. Review of Systems Narrative: 12 systems reviewed. Pertinent positives and negatives are as per HPI. Additionally, the patient endorses palpitations occasionally, denies having a h/o alcohol withdrawal seizures. She usually drinks 6-8 tall boy beers per day. Her last drink was this morning. Denies fevers, runny nose, sore throat, nausea, abdominal pain. Endorses complia nce with medications. [facility] Social History Smoking/Tobacco Use Status: Current every day Tobacco Type: cigarettes Alcohol Intake: current Alcohol Intake frequency: 0-2 drinks per day Alcohol type: beer Drug use: Never Substance use type: does not use Details: Pt reports half a beer today. Household members: significant other Do you feel safe at home: Yes Do you feel safe in your relationship?: Yes Additional Social history: Lives with long-term boyfriend Stepan in [place]. Last work at [employer] but has not worked in years. 2 adult children, including daughter in [place] and son and 2 baby grandkids and [employer] ([employer]) Meds Home Medications and Allergies Home Medications Medication Instructions Recorded Confirmed Type cyanocobalamin (vitamin B-12) 1,000 mcg PO DAILY #30 tab 04/18/19 09/04/19 Rx [Vitamin B-12] magnesium oxide 400 mg PO DAILY #30 tab 04/18/19 09/04/19 Rx multivitamin [Multiple Vitamins] 1 tab PO DAILY #30 tab 04/18/19 09/04/19 Rx diltiazem HCl [Cardizem CD] 240 mg PO DAILY 60 Days #60 cap 08/09/19 09/04/19 Rx aspirin 81 mg PO DAILY #0 tab 08/17/19 09/04/19 Rx atorvastatin 40 mg PO DAILY #30 tab 08/17/19 09/04/19 Rx pantoprazole 40 mg PO DAILY #30 tab 08/17/19 09/04/19 Rx Allergies Allergy/AdvReac Type Severity Reaction Status Date / Time No Known Allergies Allergy Unverified 09/04/19 10:36 Exam Narrative Exam Narrative: General: Very pleasant, anxious appearing middle-aged female, not tremulous (yet), A&Ox3, on room air, no respiratory distress noted Neurological: A&Ox3, not tremulous, no focal deficits Psychiatric: anxious Skin: [place], no visible ecchymoses HEENT: Atraumatic, normocephalic, EOMI, MMM, clear oropharynx, no submandibular or cervical lymphadenopathy, no goiter or JVD Cardiovascular: irregularly irregular rhythm, HR in the 90's, no m/r/g Lungs: rales at B bases Gastrointestinal: soft, nontender, nondistended Genitourinary: deferred Extremities: 1+ BLE edema, symmetric, +1 B pedal pulses, no c/c. Results Imaging Additional studies: EKG:HR 106, Afib, nonspecific St-T changes, old CTA chest 09/03/2019: Bilateral pleural effusions and compressive atelectasis. Small to moderate-sized pericardial effusion. No evidence of pulmonary embolism. Labs Result diagrams: 09/04/19 10:50 09/04/19 10:50 Labs: Laboratory Results - last 24 hr 09/04/19 09/04/19 09/04/19 10:50 10:50 10:50 WBC 8.95 RBC 3.79 L Hgb 13.6 Hct 38.2 MCV 100.8 H MCH 35.9 H MCHC 35.6 RDW 13.0 Plt Count 253 MPV 9.5 Immature Gran % 0.3 Neutrophils % 80.0 Lymphocytes % 7.6 Monocytes % 11.6 Eosinophils % 0.3 Basophils % 0.2 Absolute Neutrophils 7.15 H Absolute Lymphocytes 0.68 L Absolute Monocytes 1.04 H Absolute Eosinophils 0.03 Absolute Basophils 0.02 PT 12.1 H INR 1.2 H APTT 30.6 Sodium 134 L Potassium 3.5 Chloride 98 Carbon Dioxide 25.3 Anion Gap 10.7 BUN 1 L Creatinine 0.64 Estimated GFR/1.73 m2 >= 60.00 Glucose 105 Calcium 8.7 Magnesium 1.6 L Total Bilirubin 2.3 H AST 223 H ALT 91 H Alkaline Phosphatase 311 H Troponin I < 0.05 NT-Pro-B Natriuret Pep Total Protein 7.9 Albumin 3.0 L 09/04/19 10:50 WBC RBC Hgb Hct MCV MCH MCHC RDW Plt Count MPV Immature Gran % Neutrophils % Lymphocytes % Monocytes % Eosinophils % Basophils % Absolute Neutrophils Absolute Lymphocytes Absolute Monocytes Absolute Eosinophils Absolute Basophils PT INR APTT Sodium Potassium Chloride Carbon Dioxide Anion Gap BUN Creatinine Estimated GFR/1.73 m2 Glucose Calcium Magnesium Total Bilirubin AST ALT Alkaline Phosphatase Troponin I NT-Pro-B Natriuret Pep 1248 H Total Protein Albumin Last Vital Signs Temp 36.6 C 09/04/19 13:02 Pulse 107 H 09/04/19 13:02 Resp 15 09/04/19 13:02 BP 101/72 09/04/19 13:02 Pulse Ox 96 09/04/19 13:02 COVID-19 Screening Have you, or has anyone in your household, traveled outside of [place] in the last 14 days?: NO Had IN PERSON contact w/suspected or confirmed C-19 person: No
[2019-09-04 14:22] LABS: Troponin I < 0.05 ng/mL (<0.06)
[2019-09-04] MEDS: Heparin 5,000 UNITS/ML VIAL 5000 UNITS SC ×2 (14:42→21:51)
[2019-09-04] MEDS: Pantoprazole 40 MG TABCR PO (14:42)
[2019-09-04] MEDS: Sucralfate 1 GM TAB PO ×2 (16:42→21:51)
[2019-09-04] MEDS: LORazepam 1 MG TAB PO/SL ×2 (17:12→22:04)
[2019-09-04 20:30] LABS: Troponin I < 0.05 ng/mL (<0.06)
[2019-09-04 22:37] LABS: COVID-19 RT-PCR UVMMC Result Negative (Negative)
[2019-09-05] VITALS (99 sets, daily range): BP systolic 79–124; BP diastolic 50–106; PULSE 66–167; RESP 17–38; TEMP 36.4–36.8; O2SAT 91–98
[2019-09-05] MEDS: Normal Saline Flush 10 ML SYR IVP ×7 (00:11→23:40)
[2019-09-05] MEDS: Metoprolol 5 MG/5 ML VIAL 2.5 MG IVP ×3 (00:11→21:18)
[2019-09-05] MEDS: LORazepam 1 MG TAB PO/SL (01:00)
[2019-09-05] MEDS: LORazepam 2 MG/ML VIAL IVP ×3 (04:29→23:41)
[2019-09-05] MEDS: Heparin 5,000 UNITS/ML VIAL 5000 UNITS SC ×2 (06:01→14:29)
[2019-09-05] MEDS: Pantoprazole 40 MG TABCR PO (06:59)
[2019-09-05] MEDS: Sucralfate 1 GM TAB PO ×2 (06:59→18:02)
[2019-09-05] MEDS: Furosemide 20 MG/2 ML VIAL IVP ×2 (07:00→18:02)
[2019-09-05 07:13] LABS: Abs Immature Grans 0.01 k/cumm (0.0-0.09); Absolute Basophil Count 0.03 k/cumm (0.0-0.2); Absolute Eosinophil Count 0.03 k/cumm (0.0-0.7); Absolute Lymphocyte Count 0.68 k/cumm (1.2-3.4); Absolute Neutrophil Count 5.22 k/cumm (1.2-6.7); Basophils % 0.4; Eosinophils % 0.4; Immature Grans % 0.1 %; Lymphocytes % 9.5; Mean Corp. HGB Concentration 35.1 g/dL (32.0-36.0); Mean Corpuscular Hemoglobin 35.4 pg (27.0-33.0); Mean Corpuscular Volume 100.8 fL (80-95); Mean Platelet Volume 10.4 fL (8.0-11.0); Monocytes % 16.7; Neutrophils % 72.9; RBC 3.67 m/cumm (4.00-5.20); RBC Distribution Width 13.1 % (11.7-14.6); White Blood Cell Count 7.17 k/cumm (4.4-10.8)
[2019-09-05] MEDS: dilTIAZem CD 120 MG CAPCR 240 MG PO (07:18)
[2019-09-05 07:39] LABS: Platelet Count 206 x1000/uL (130-400)
[2019-09-05 07:44] LABS: ALT 75 U/L (14-59); AST 155 U/L (15-37); Albumin 2.4 g/dL (3.4-5.0); Alkaline Phosphatase 266 U/L (46-116); Anion Gap 11.4 mmol/L (3-11); BUN 4 mg/dL (7-18); Bilirubin, Direct 1.38 mg/dL (0.00-0.20); Bilirubin, Total 2.3 mg/dL (0.2-1.0); CO2 26.6 mmol/L (21.0-32.0); CREATININE 0.59 mg/dL (0.55-1.02); Calcium 8.2 mg/dL (8.5-10.1); Chloride 98 mmol/L (98-107); Glucose 88 mg/dL (74-106); Magnesium 1.5 mg/dL (1.8-2.4); Sodium 136 mmol/L (136-145); TSH (W/Ref FT4) 5.74 uIU/mL (0.36-3.74); Total Protein 6.9 g/dL (6.4-8.2)
[2019-09-05 07:45] LABS: Potassium 2.8 mmol/L (3.5-5.1); Troponin I < 0.05 ng/mL (<0.06)
[2019-09-05 08:04] LABS: FREE T4 1.26 ng/dL (0.76-1.46)
[2019-09-05 08:16] LABS: Calculated LDL 35 mg/dL (<100); Cholesterol 71 mg/dL (<200); HDL Cholesterol 25 mg/dL (40-60); Triglyceride 59 mg/dL (<150)
--- NOTE | 2019-09-05 08:21 | W.PM.PROGNOT ---
Date of Service Date of service: 09/05/19 Time of Service: 11:43 Assessment and Plan Assessment and plan (1) Acute on chronic diastolic CHF (congestive heart failure), NYHA class 1: Status: Acute Assessment and plan: Pericardial effusion is trivial on the echo. I do not believe that her subclinical hypothyroidism could have caused this. Continue to diurese, monitoring BP, I/O's, daily weights, Cr. (2) Aspiration pneumonia: Status: Acute Assessment and plan: Patient seen chocking on clear liquids today. Concerning. Her procalcitonin is slightly bumped. Will start zosyn. Consult speech therapy. Modify diet. (3) Bilateral pleural effusion: Status: Acute Assessment and plan: Getting started on antibiotics for a suspected aspiration PNA. The question of whether pleural effusions could be infected remains - if there is enough to tap on CXR today/tomorrow, will consider doing that. However, also has acute CHF/uncontrolled Afib. No cirrhosis, per US. Continue diuresis. (4) Atrial fibrillation: Status: Chronic Assessment and plan: Rate less controlled today, likely due to underlying alcohol withdrawal. Continue home diltiazem, and I added PO lopressor. Continue PRN IV lopressor. May requiring diltiazem gtt. (5) Chest pain: Status: Resolved Assessment and plan: Suspect esophagitis. No evidence of ACS. Pericardial effusion is trivial, though could still have pericarditis. Continue PPI. (6) Pericardial effusion: Status: Acute Assessment and plan: As above. Trivial on echo. Continue diuresis. (7) Alcohol dependence: Status: Acute Assessment and plan: Monitor for withdrawal on CIWA with prn ativan. We scheduled librium today - will back off the dose a little bit. (8) Hypokalemia: Status: Acute Assessment and plan: Replete and recheck later today (9) Hypomagnesemia: Status: Acute Assessment and plan: Replete, recheck in am (10) Subclinical hypothyroidism: Status: Chronic Assessment and plan: Follow up as outpatient. (11) DVT prophylaxis: Status: Acute Assessment and plan: SC heparin (12) Discharge planning issues: Status: Acute Assessment and plan: Full code Continues to require ICU. Total Critical Care Time 40 minutes. Subjective Subjective Interval history since last seen: CIWA 9-10 this am. Anxious this am, stating that she wanted to go home, how do I get dressed? to nursing. Confused - thinks that she needs to go to the hospital at this point, when talking to me. She did not know she was already here. Denies pain, dizziness, chest pain. Fall asleep when I attempted to ask her other questions. Ativan 4:30 am - 2 mg IV, 7:45 - 2 mg IV. Nursing notes that speech got slurred after librium, but was not like that before. Max assist out of bed, uncoordinated. Afib is not well controlled, but HR is in the 90's at rest. Goes up to 170's with activity. Nursing reports wet loose cough. Required 2.5 mg of IV metoprolol at midnight. Choked on thin liquids. Awaiting speech therapy. Exam Narrative Exam Narrative: General: Somnolent, falls asleep during interview, arousable, A&Ox1, slurred speech, no focal deficits otherwise. Not tremulous HEENT: EOMI, MMM Cardiovascular: irregularly irregular rhythm, not tachyardic, no m/r/g Lungs: rhonchorous anteriorly Gastrointestinal: soft, nontender, nondistended Extremities: trace BLE edema, symmetric, +1 B pedal pulses, no c/c. Objective Objective Clinical Data: Abnormal lab results 09/04/19 09/04/19 09/04/19 Range/Units 10:50 10:50 10:50 RBC 3.79 L (4.00-5.20) m/cumm MCV 100.8 H (80-95) fL MCH 35.9 H (27.0-33.0) pg Absolute Neutrophils 7.15 H (1.2-6.7) k/cumm Absolute Lymphocytes 0.68 L (1.2-3.4) k/cumm Absolute Monocytes 1.04 H (0.11-0.7) k/cumm PT 12.1 H (9.3-11.0) sec INR 1.2 H (0.9-1.1) Sodium 134 L (136-145) mmol/L Potassium (3.5-5.1) mmol/L Anion Gap (3-11) mmol/L BUN 1 L (7-18) mg/dL Calcium (8.5-10.1) mg/dL Magnesium 1.6 L (1.8-2.4) mg/dL Total Bilirubin 2.3 H (0.2-1.0) mg/dL Conjugated Bilirubin (0.00-0.20) mg/dL AST 223 H (15-37) U/L ALT 91 H (14-59) U/L Alkaline Phosphatase 311 H (46-116) U/L NT-Pro-B Natriuret Pep (<300) pg/mL Albumin 3.0 L (3.4-5.0) g/dL HDL Cholesterol (40-60) mg/dL TSH (0.36-3.74) uIU/mL 09/04/19 09/05/19 09/05/19 Range/Units 10:50 06:10 06:10 RBC 3.67 L (4.00-5.20) m/cumm MCV 100.8 H (80-95) fL MCH 35.4 H (27.0-33.0) pg Absolute Neutrophils (1.2-6.7) k/cumm Absolute Lymphocytes 0.68 L (1.2-3.4) k/cumm Absolute Monocytes 1.20 H (0.11-0.7) k/cumm PT (9.3-11.0) sec INR (0.9-1.1) Sodium (136-145) mmol/L Potassium 2.8 L* (3.5-5.1) mmol/L Anion Gap 11.4 H (3-11) mmol/L BUN 4 L (7-18) mg/dL Calcium 8.2 L (8.5-10.1) mg/dL Magnesium 1.5 L (1.8-2.4) mg/dL Total Bilirubin 2.3 H (0.2-1.0) mg/dL Conjugated Bilirubin 1.38 H (0.00-0.20) mg/dL AST 155 H (15-37) U/L ALT 75 H (14-59) U/L Alkaline Phosphatase 266 H (46-116) U/L NT-Pro-B Natriuret Pep 1248 H (<300) pg/mL Albumin 2.4 L (3.4-5.0) g/dL HDL Cholesterol 25 L (40-60) mg/dL TSH 5.74 H (0.36-3.74) uIU/mL Vital Signs Temperature 36.4 C L 09/05/19 04:30 Temperature Source Temporal Artery Scan 09/05/19 07:56 Pulse 118 H 09/05/19 06:47 Pulse 161 H 09/05/19 07:40 Respiratory Rate 36 H 09/05/19 07:40 Respiratory Effort Short of Breath 09/05/19 07:56 Respiratory Depth Shallow 09/05/19 07:56 Respiratory Pattern Tachypnea 09/05/19 07:56 Blood Pressure 104/83 09/05/19 06:47 Blood Pressure Mean 88 09/05/19 06:47 Blood Pressure Position Supine 09/05/19 04:30 Pulse Oximetry 94 L 09/05/19 07:30 Oxygen Delivery Method Room Air 09/05/19 04:30 Oxygen Flow Rate 0 09/05/19 04:30 Pain Level 0 09/05/19 04:30 Intake & Output 09/04/19 09/04/19 09/05/19 11:59 23:59 11:59 Intake Total 801 / 801 Output Total 3475 / 3475 150 / 150 Balance -2674 / -2674 -150 / -150 Weight 76.204 kg 70.7 kg Intake: IV 151 / 151 Oral 650 / 650 Output: Urine 3475 / 3475 150 / 150 Other: Urine Color Pale Dark Bell Yellow Urine Appearance Clear Clear Urine Odor None Strong Comment voided on commode. urine is light colored yellow with a negative dipstick voided on commode 150cc of dark clear Cola/bell urine. Stool Size Moderate Stool Characteristics Soft Formed Brown Voiding Methods Bedside Commode Bedside Commode Laboratory Results WBC 7.17 k/cumm (4.4-10.8) 09/05/19 06:10 RBC 3.67 m/cumm (4.00-5.20) L 09/05/19 06:10 Hgb 13.0 g/dL (12.0-15.5) 09/05/19 06:10 Hct 37.0 % (36.0-46.0) 09/05/19 06:10 MCV 100.8 fL (80-95) H 09/05/19 06:10 MCH 35.4 pg (27.0-33.0) H 09/05/19 06:10 MCHC 35.1 g/dL (32.0-36.0) 09/05/19 06:10 RDW 13.1 % (11.7-14.6) 09/05/19 06:10 Plt Count 206 x1000/uL (130-400) 09/05/19 06:10 MPV 10.4 fL (8.0-11.0) 09/05/19 06:10 Immature Gran % 0.1 % 09/05/19 06:10 Neutrophils % 72.9 09/05/19 06:10 Lymphocytes % 9.5 09/05/19 06:10 Monocytes % 16.7 09/05/19 06:10 Eosinophils % 0.4 09/05/19 06:10 Basophils % 0.4 09/05/19 06:10 Absolute Neutrophils 5.22 k/cumm (1.2-6.7) 09/05/19 06:10 Absolute Lymphocytes 0.68 k/cumm (1.2-3.4) L 09/05/19 06:10 Absolute Monocytes 1.20 k/cumm (0.11-0.7) H 09/05/19 06:10 Absolute Eosinophils 0.03 k/cumm (0.0-0.7) 09/05/19 06:10 Absolute Basophils 0.03 k/cumm (0.0-0.2) 09/05/19 06:10 PT 12.1 sec (9.3-11.0) H 09/04/19 10:50 INR 1.2 (0.9-1.1) H 09/04/19 10:50 APTT 30.6 sec (21.0-31.4) 09/04/19 10:50 Sodium 136 mmol/L (136-145) 09/05/19 06:10 Potassium 2.8 mmol/L (3.5-5.1) L* 09/05/19 06:10 Chloride 98 mmol/L (98-107) 09/05/19 06:10 Carbon Dioxide 26.6 mmol/L (21.0-32.0) 09/05/19 06:10 Anion Gap 11.4 mmol/L (3-11) H 09/05/19 06:10 BUN 4 mg/dL (7-18) L 09/05/19 06:10 Creatinine 0.59 mg/dL (0.55-1.02) 09/05/19 06:10 Estimated GFR/1.73 m2 >= 60.00 (mL/min/1.73m2) 09/05/19 06:10 Glucose 88 mg/dL (74-106) 09/05/19 06:10 Calcium 8.2 mg/dL (8.5-10.1) L 09/05/19 06:10 Magnesium 1.5 mg/dL (1.8-2.4) L 09/05/19 06:10 Total Bilirubin 2.3 mg/dL (0.2-1.0) H 09/05/19 06:10 Conjugated Bilirubin 1.38 mg/dL (0.00-0.20) H 09/05/19 06:10 AST 155 U/L (15-37) H 09/05/19 06:10 ALT 75 U/L (14-59) H 09/05/19 06:10 Alkaline Phosphatase 266 U/L (46-116) H 09/05/19 06:10 Troponin I < 0.05 ng/mL (<0.06) 09/05/19 06:10 NT-Pro-B Natriuret Pep 1248 pg/mL (<300) H 09/04/19 10:50 Total Protein 6.9 g/dL (6.4-8.2) 09/05/19 06:10 Albumin 2.4 g/dL (3.4-5.0) L 09/05/19 06:10 Triglycerides 59 mg/dL (<150) 09/05/19 06:10 Total Cholesterol 71 mg/dL (<200) 09/05/19 06:10 LDL Cholesterol, Calc 35 mg/dL (<100) 09/05/19 06:10 HDL Cholesterol 25 mg/dL (40-60) L 09/05/19 06:10 TSH 5.74 uIU/mL (0.36-3.74) H 09/05/19 06:10 Free T4 1.26 ng/dL (0.76-1.46) 09/05/19 06:10 COVID-19 PCR Negative (Negative) 09/04/19 10:00 Nasopharyn COVID-19 PCR Not Applicable 09/04/19 10:00
[2019-09-05] MEDS: MAGNESIUM SULFATE 4 GM/100 ML BAG IVPB (08:56)
[2019-09-05] MEDS: POTASSIUM CHLORIDE 20 MEQ/100 ML BAG 50 MEQ IVPB ×4 (09:37→18:01)
[2019-09-05] MEDS: Cyanocobalamin 500 MCG TAB 1000 MCG PO (09:38)
[2019-09-05] MEDS: Magnesium Oxide 400 MG TAB PO (09:38)
[2019-09-05] MEDS: Thiamine 100 MG TAB PO (09:38)
[2019-09-05] MEDS: chlordiazePOXIDE 25 MG CAP PO (09:38)
[2019-09-05] MEDS: Multivitamin TAB 1 TAB PO (09:38)
[2019-09-05] MEDS: Metoprolol 12.5 MG TAB PO ×2 (09:38→21:07)
[2019-09-05] MEDS: Aspirin E.C. 81 MG TABEC PO (09:38)
[2019-09-05] MEDS: Folic Acid 1 MG TAB PO (09:39)
[2019-09-05] MEDS: Atorvastatin 40 MG TAB PO (09:39)
--- NOTE | 2019-09-05 11:21 | INITIAL_ITS ---
- If Service Date Differs Date of service: 09/05/19 Time of Service: 14:59 Care Management Initial Assess REASON FOR HOSPITALIZATION:: Acute on chronic diastolic CHF, alcohol withdrawal PAST MEDICAL HISTORY/PAST SURGICAL HISTORY:: Alcohol abuse, anxiety and depression, A-fib with rapid ventricular response, chronic diastolic CHF, opiate addiction, pulmonary nodules, SAH, tobacco abuse, bunionectomy, bilateral tubal ligation PREVIOUS FUNCTIONAL STATUS/SOCIAL/FAMILY SUPPORTS:: Shantel resides with her significant other, Stepan, in [place], [place]. She reports Stepan drives, she does not, but he would not be likely to provide transport for her home. When asked if Stepan is kind to her she reports yes. Shantel has been struggling with HORTENCIA due to alcohol dependency. She has had four ER visits since the beginning of August, one visit resulting in admission. She had six visits in July two resulting in OBV stays where she left AMA. CURRENT FUNCTIONAL STATUS:: Shantel is lying in bed, she makes good eye contact when opening her eyes but often has them closed. She reports repeatedly that she wants to return home. CM is able to engage Shantel in a scattered converstation where she identifies previously detoxing at [facility] and [facility] in the past. She also identifies that quitting drinking would help her in the future but she is not ready to do so at this time. CM provides active listening and support while sharing concerns at Shantel's multiple falls and ongoing medical status. Has patient been provided with info about the portal/API?: No Did the patient sign up for the portal?: No CODE STATUS:: Full Code INSURANCE COVERAGE / [facility]ANCIAL [facility]UES[facility] CURRENT HOME/COMMUNITY SERVICES/EQUIPMENT:: Rama Winn reports Shantel has not been seen by Amarilys Barrera in the last few years. Per chart review it does appear phone contact was made by Amarilys Barrera on 06/05/19 at which time Shantel refused additional services but was agreeable to a visit when the office re-opened. Rama offered to coordinate a visit at [facility] upon discharge; CM will attempt to coordinate if Shantel is willing. PRIMARY CARE PHYSICIAN:: Amarilys Barrera POTENTIAL DISCHARGE NEEDS:: Follow up appointment with PCP; request for immediate coordination to [facility] upon discharge. [facility] referral. PATIENT/FAMILY EDUCATION NEEDS:: Review of discharge instructions, discuss Ask Me Three. ANTICIPATED BARRIERS TO DISCHARGE:: None identified. TRANSPORTATION:: Via [facility]. PLAN:: Shantel remains in the ICU at this time. She is being monitored closely for withdrawal and treated per CIWA protocol. CM continues to follow and will attempt to connect Shantel to [facility] directly upon discharge as well as [facility]. Shantel often transport via [facility] when leaving AMA.
[2019-09-05] MEDS: PIPERACILLIN/TAZO 3.375 GM in Normal Saline 50 ML IVPB ×2 (14:24→21:01)
[2019-09-05 14:35] LABS: Anion Gap 9.7 mmol/L (3-11); BUN 4 mg/dL (7-18); CO2 28.3 mmol/L (21.0-32.0); CREATININE 0.58 mg/dL (0.55-1.02); Calcium 8.1 mg/dL (8.5-10.1); Chloride 99 mmol/L (98-107); Glucose 91 mg/dL (74-106); Potassium 3.1 mmol/L (3.5-5.1); Sodium 137 mmol/L (136-145)
--- NOTE | 2019-09-05 15:00 | W.SPEECHEVAL ---
Date of service: 09/05/19 Time of Service: 15:00 Speech Therapy Evaluation Note: Speech-Language/Swallowing Pathology Clinical Dysphagia Evaluation Medical Diagnosis: CHF, aspiration pneumonia, atrial fibrillation, alcohol dependence. Therapy Diagnosis: Oral-Pharyngeal Dysphagia. Current Level of Care: ICU. Subjective: Pt was sleeping when the STORAGE BATTERY TESTER arrived. She was easily woken and agreed to the clinical bedside swallow assessment today. While initially agreeing to complete oral-mechanism tasks, pt became somewhat agitated and increasingly confused. Pt agreed to additionally trial drinks, but refused any solid intake with STORAGE BATTERY TESTER today. Pertinent Medical/Swallowing History & Previous Level of Function: Per H&P, 09/04/19: ?Ms Bee is a 59 year old female with PMHx of alcohol abuse (last drink this morning), alcohol withdrawal, chronic Afib, not on anticoagulation due to medical noncompliance, chronic diastolic CHF, who presented to [facility] ED today complaining of feeling anxious, bilateral leg swelling which has been bothering her, shortness of breath at rest, and midsternal chest pain, sharp, without radiation, at rest, self-limited. She was seen in the ED on 09/02, 08/28, 08/26, 08/24, for similar complaints. She states she took her medications this morning. She had a CTA of her chest in the ED yesterday showing bilateral pleural effusions with compressive atelectasis as well as small to moderate-sized pericardial effusion. She was offered admission at that time, but left ED AMA. On the echo from 08/20/2019, pericardial effusion was felt to be trivial. The patient endorses cough productive of yellow sputum (chronic) that she attributes to smoking (advised to quit). The patient reports 2 pillow orthopnea, but no PND. She agrees to stay for admission today. Denies contac with any known COVID positive patients, states she has worn a mask when outside, and has not traveled outside of the immediate area.? Per Progress Note, 09/05/19: ?Anxious this am, stating that she wanted to go home, how do I get dressed? to nursing. Confused - thinks that she needs to go to the hospital at this point, when talking to me. She did not know she was already here. Denies pain, dizziness, chest pain. Fall asleep when I attempted to ask her other questions. Ativan 4:30 am - 2 mg IV, 7:45 - 2 mg IV. Nursing notes that speech got slurred after librium, but was not like that before. Max assist out of bed, uncoordinated. Afib is not well controlled, but HR is in the 90's at rest. Goes up to 170's with activity. Nursing reports wet loose cough. Required 2.5 mg of IV metoprolol at midnight. Choked on thin liquids. Awaiting speech therapy.? Current Level of Function & Reason for Referral: Pt has had difficulty managing thin liquids, coughing and choking when drinking. A clinical dysphagia evaluation was ordered to assess aspiration risk and determine appropriate diet. Living Environment/Support: Lives with significant other. Precautions: Aspiration precautions. Medications: Please see MAR. Allergies: No known allergies. Barriers to Learning: Confusion, weakened state. Respiratory Function: Diminished. Please monitor for PO intake. Do not feed if below 89%. Supplemental Oxygen: None during evaluation. Posture/Positioning: Pt was able to sit up and lean forward when coughing. She was observed to lean to the right side frequently. STORAGE BATTERY TESTER and nursing repositioned pt to be fully upright in bed for PO intake. Prior Diet: Unknown. Current Diet: Nursing stated that pt has not been safe to feed today due to reduced alertness. Pt has been receiving thin liquids. ORAL MECHANISM EXAMINATION Dentition: Upper and lower natural. Pt missing and has several broken teeth. Oral Hygiene: Poor. Nursing advised to complete oral care as frequently as possible, no less than 3x/day. Oral Structures/Functioning: Diminished lingual strength, ROM, and coordination. Reduced labial strength. Mandibular strength and ROM WFL. Consistencies Tested: Thin liquids, mildly thick (nectar) liquids via open cup sips and straw. Pt refused all solid trials today. Self-Feeding/Level of Assistance: Pt required complete assistance to safely hold her cup and bring to oral cavity/straw to mouth. Oral Phase: Upon first sips of thin liquids, significant premature spillage suspected and lack of oral control, resulting in aspiration events. Pt able to follow directions for a bolus hold x1, with no coughing post swallow, however, non-compliance observed for additional bolus hold trials. Pt coughed immediately post swallow of all thin liquid trials today, with the exception of the single successful bolus hold trial. Pt observed to take large sips via open cups and consecutive swallows from straws, despite consistent cueing to take small, single sips. STORAGE BATTERY TESTER thickened liquids to mildly-thick (nectar) and administered via straw only. STORAGE BATTERY TESTER pinched the straw to limit flow and volume to single, small sips. Coughing was eliminated with these modifications and pt exhibited improved oral control and more slow and relaxed oral prep prior to swallowing. Pharyngeal Phase: Hyolaryngeal elevation/excursion noted upon palpation, however, premature spillage highly suspected for thin liquids. Esophageal Phase: Unknown. S/S Aspiration: Coughing, watery eyes, runny nose, wet vocal quality post swallow of thin liquids. S/S of aspiration were eliminated when liquids were thickened. Pt/Caregiver/Staff Education: Nursing staff and attending MD in addition to the pt, were educated regarding recommended diet modifications and POC for ongoing assessment. Nursing staff trained in proper thickening and supervision requirements to assist pt in use of safe swallow strategies to reduce aspiration risks. Swallowing recommendations, including diet modifications, staff supervision/assistance needs, medication administration, posture/positioning needs, and safe swallow strategies were posted in pt's room, provided to nursing for pt chart, and provided to attending MD. Assessment: Pt is a 59 year-old female with extensive medical hx, who presents in a weakened and confused state secondary to alcohol withdrawals, bilateral pleural effusion, CHF, and atrial fibrillation. Pt demonstrated aspiration when trialing thin liquids today, evidenced by immediate coughing, watery eyes, runny nose, and wet vocal quality. Pt is at significant risk for further aspiration given her debilitated state. Aspiration risks can be reduced with a modified diet and staff assistance to implement safe swallow protocols. Pt?s symptoms were eliminated when STORAGE BATTERY TESTER administered thickened liquids (mildly thick/nectar) via a straw and pinched the straw to limit bolus size and flow to ensure small and single sips. Pt is advised for PO intake of mildly thickened (nectar) liquids with staff assistance and when adequately alert only. O2 stats must also be 89% or above for safe feeding. Nursing reports that pt is managing puree solids to take medications (whole in applesauce). Pt refused to trial any solid foods with STORAGE BATTERY TESTER today. Staff may trial puree solids via teaspoon only pending further STORAGE BATTERY TESTER assessment. Staff should complete oral care no less than 3x/day to improve oral hygiene. Proper oral hygiene is essential given pt?s significant aspiration risk. Pt is recommended for a follow-up diagnostic treatment session to assess management of modified diet and solid textures and to develop a full POC. Rehab Potential: Guarded. Short-Term Goals: TBD pending additional diagnostic treatment session. Long-Term Goals: TBD pending additional diagnostic treatment session. Pt Goal: To go home. PLAN Planned Treatment Interventions: TBD. Frequency: TBD. Intensity: TBD. Duration: TBD. Discharge Plan: TBD. SWALLOWING RECOMMENDATIONS Solids: Puree trials via teaspoons from staff only. Liquids: Mildly thick liquids (nectar) via standard flexible straw only, with staff assistance to limit volume (please pinch the straw to ensure single, small sips). Medication Administration: Whole in puree. Please crush in puree if needed. Level of Assistance/Supervision: 100% direct supervision and assistance for all PO intake. Please monitor O2 stats for PO intake. Do not feed pt or provide drinks if below 89%. Strategies/Adaptations/AE: Please present thickened drinks (mildly thick/nectar thick) only in a cup with standard flexible straw. Support pt to bring straw to mouth and staff should pinch straw to limit flow to single small sips. If trialing puree, please present teaspoons only. Posture/Positioning Needs: Pt must be fully upright for all PO intake. Do not feed reclined. Aspiration precautions. Charge Code: [id number] Dysphagia Evaluation Time In: 3:00 pm Time Out: 4:00 pm Total Time: 60 minutes
--- NOTE | 2019-09-05 15:05 | PHACLINREV_ITS ---
Pharmacy Admission Review - Admission Clinical Review (Last Updated 09/04/19 @ 14:03 by Amy Chávez MD) Aspiration pneumonia (Acute) Hypomagnesemia (Acute) Hypokalemia (Acute) Pericardial effusion (Acute) Discharge planning issues (Acute) DVT prophylaxis (Acute) Bilateral pleural effusion (Acute) Acute on chronic diastolic CHF (congestive heart failure), NYHA class 1 (Acute) Pericardial effusion (Acute) Pleural effusion, bacterial (Acute) Alcohol dependence (Acute) No Known Allergies Allergy (Unverified 09/04/19 10:36) Height 5 ft 8 in Weight 70.7 kg - Renal Dosing Renal Dosing: BUN 4 mg/dL (7-18) L 09/05/19 14:15 Creatinine 0.58 mg/dL (0.55-1.02) 09/05/19 14:15 Medications needing adjustments: Reviewed - Anticoagulation Anticoagulation: Hgb 13.0 g/dL (12.0-15.5) 09/05/19 06:10 Hct 37.0 % (36.0-46.0) 09/05/19 06:10 Plt Count 206 x1000/uL (130-400) 09/05/19 06:10 INR 1.2 (0.9-1.1) H 09/04/19 10:50 Creatinine 0.58 mg/dL (0.55-1.02) 09/05/19 14:15 DVT Prohphylaxis: Reviewed Medications: Aspirin Therapeutic Anticoagulation: Reviewed Medications: Heparin - Opiate Usage Evaluate Pain Scale/Pains Meds: N/A - Relevant Labs Sodium 137 mmol/L (136-145) 09/05/19 14:15 Potassium 3.1 mmol/L (3.5-5.1) L 09/05/19 14:15 Chloride 99 mmol/L (98-107) 09/05/19 14:15 Magnesium 1.5 mg/dL (1.8-2.4) L 09/05/19 06:10 Electrolytes, C-Reactive P, ESR: Reviewed (K+ and Mag repleted IV) - DM Control DM Control: Glucose 91 mg/dL (74-106) 09/05/19 14:15 Insulin Dosing: N/A - Heart Failure/VA Heart Failure/VA: Troponin I < 0.05 ng/mL (<0.06) 09/05/19 06:10 NT-Pro-B Natriuret Pep 1248 pg/mL (<300) H 09/04/19 10:50 EF%, KENNETH's, B-Blockers, Diuretics: Reviewed - BP Control BP Control: Blood Pressure [Left Arm] 105/70 Blood Pressure 93/50 Blood Pressure 93/70 Blood Pressure 88/66 Blood Pressure 86/71 Blood Pressure 91/65 Blood Pressure 97/65 Blood Pressure 95/65 Blood Pressure 83/61 Blood Pressure 96/64 Blood Pressure 100/59 Blood Pressure 100/67 Blood Pressure 100/67 Blood Pressure 97/75 Blood Pressure 104/83 Blood Pressure 103/67 Blood Pressure 97/71 Blood Pressure 105/70 If elevated: Reviewed - IV to PO Switch IV Medications: Reviewed - Home Meds Home Med List reviewed: Intervened (Citalopram -- per recent reports from her PCP, multiple office visits have been attempted to address) Relevent Home Meds Not ordered & why?: Per recent notes from PCP, multiple OVs /telehealth appts have been scheduled to address PH's anxiety and to refill medications but were missed, per note from 07/16 she reports having 6 days of citalopram and wanted to refill that as well as discuss starting something for sleep... from what I can tell appt serena for the following week was missed by the patient and a follow has not happened yet --- per multiple ER visits due to anxiety maybe this is something we can address while she is inpatient - Current meds Current Medication Order Review: Reviewed (CIWA protocol, librium taper started)
--- NOTE | 2019-09-05 15:12 | DI.RAD_ITS ---
EXAM: XR PORTABLE CHEST AP CLINICAL HISTORY: concern for aspiration PNA TECHNIQUE: 2D digital imaging was performed. COMPARISON: CT CT CHEST PE CTA from 09/03/2019 CR XR CHEST 1V IN DI DEPT from 09/03/2019 CR XR CHEST 1V IN DI DEPT from 09/03/2019 FINDINGS: The heart is again noted to be grossly enlarged. There are bilateral pleural effusions, left greater than right and adjacent atelectasis. Superimposed pneumonia is not excluded. The findings are not significantly changed from the previous exam given differences in technique. IMPRESSION: Stable bilateral pleural effusions, left greater than right. DATA REPOSITORY: RADIATION DOSE DELIVERED:
--- NOTE | 2019-09-05 16:04 | W.SPSTE ---
Date of service: 09/05/19 Time of Service: 15:00
--- NOTE | 2019-09-05 20:25 | DI.RAD_ITS ---
EXAM: XR PELVIS AP CLINICAL HISTORY: fall. TECHNIQUE: 2D digital imaging was performed. COMPARISON: CR XR PELVIS AP from 09/03/2019 FINDINGS: BONES: No acute fracture is present. No bony destructive lesion is seen. JOINTS: No dislocation present. THERE IS MILD SUPERIOR HIP JOINT SPACE NARROWING. THERE IS ACETABULA R SPURRING. SOFT TISSUE: Normal. IMPRESSION: DEGENERATIVE CHANGES. NO ACUTE ABNORMALITY. DATA REPOSITORY: RADIATION DOSE DELIVERED:
--- NOTE | 2019-09-05 20:35 | DI.CT_ITS ---
EXAM: CT HEAD WO CLINICAL HISTORY: fall. TECHNIQUE: Imaging Protocol: Axial computed tomography images with coronal and sagittal reformatted images were created and reviewed COMPARISON: CT CT HEAD CERVICAL SPINE WO from 01/15/2019 FINDINGS: Ventricles and Extra axial spaces: Normal in size and morphology for the patient's age. Hemorrhage: None. Cerebral parenchyma: Normal. Midline shift: None. Brainstem/Cerebellum: Normal. Calvarium: Normal. Visualized Paranasal sinuses/Mastoids: Clear. Soft Tissues: Unremarkable. IMPRESSION: No acute intracranial process. RADIATION DOSE DELIVERED: Total DLP DATA REPOSITORY: All CT scans at this facility are submitted to the National Radiology Data Registry (NRDR) Dose Index Registry (DIR) with the [employer] (ACR). RADIATION OPTIMIZATION: All CT scans at this facility use at least one of these dose optimization te chniques: automated exposure control; mA and/or kV adjustment per patient size (includes targeted exa ms where dose is matched to clinical indication); or iterative reconstruction.
--- NOTE | 2019-09-05 20:46 | DI.VRAD_ITS ---
PROCEDURE INFORMATION: Exam: XR Pelvis Exam date and time: 09/05/2019 8:26 PM Age: 59 years old Clinical indication: Injury or trauma; Initial encounter; Blunt trauma (contusions or hematomas); Does not apply; Pelvic region; Injury date: 09/04; Injury details: Fall today. TECHNIQUE: Imaging protocol: XR pelvis. Views: 1 or 2 view. COMPARISON: CR XR PELVIS AP 09/03/2019 10:28 AM FINDINGS: Bones/joints: Unremarkable. No acute fracture. Soft tissues: Unremarkable. IMPRESSION: No acute findings. Dictated and Authenticated by: Westley Banks MD. Ordering:JENNIFER Alexandre MD
--- NOTE | 2019-09-05 20:50 | DI.VRAD_ITS ---
PROCEDURE INFORMATION: Exam: CT Head Without Contrast Exam date and time: 09/05/2019 8:16 PM Age: 59 years old Clinical indication: Injury or trauma; Fall; Initial encounter; Blunt trauma (contusions or hematomas); Without loss of consciousness; Injury date: 09/04 TECHNIQUE: Imaging protocol: Computed tomography of the head without contrast. Radiation optimization: All CT scans at this facility use at least one of these dose optimization techniques: automated exposure control; mA and/or kV adjustment per patient size (includes targeted exams where dose is matched to clinical indication); or iterative reconstruction. COMPARISON: CT HEAD CERVICAL SPINE WO 01/15/2019 10:48 PM FINDINGS: Brain: Age-related involutional changes and chronic microvascular ischemic disease. No evidence for acute transcortical infarct. No mass effect or midline shift. No extra-axial collection. No acute intracranial hemorrhage. Basal cisterns are patent. Ventricles: Normal. No ventriculomegaly. Bones/joints: Unremarkable. No acute fracture. Sinuses: Visualized sinuses are unremarkable. No fluid levels. Mastoid air cells: Visualized mastoid air cells are well aerated. Soft tissues: Unremarkable. IMPRESSION: No evidence for acute transcortical infarct, acute intracranial hemorrhage, or mass effect. Dictated and Authenticated by: Westley Banks MD. Ordering:JENNIFER Alexandre MD
[2019-09-06] VITALS (132 sets, daily range): BP systolic 51–134; BP diastolic 37–90; PULSE 59–163; RESP 12–47; TEMP 36.2–37.2; O2SAT 93–100
--- NOTE | 2019-09-06 | DI.RAD_ITS ---
EXAM: XR CHEST 1V IN DI DEPT or one-view chest acute CLINICAL HISTORY: worsening cough TECHNIQUE: 2D digital imaging was performed. COMPARISON: CT CT CHEST PE CTA from 09/03/2019 CR XR CHEST 1V IN DI DEPT from 09/03/2019 FINDINGS: The heart is again noted to be grossly enlarged. Small bilateral pleural effusions are again visibl e, left greater than right. The pleural effusions decreased slightly since the previous exam. No in filtrates are visible. Leads overlie the chest. IMPRESSION: Slight interval decrease in the pleural effusions. DATA REPOSITORY: RADIATION DOSE DELIVERED:
[2019-09-06] MEDS: LORazepam 2 MG/ML VIAL IVP ×7 (01:00→23:30)
[2019-09-06] MEDS: PIPERACILLIN/TAZO 3.375 GM in Normal Saline 50 ML IVPB ×3 (02:24→14:20)
[2019-09-06 05:41] LABS: Abs Immature Grans 0.01 k/cumm (0.0-0.09); Absolute Basophil Count 0.02 k/cumm (0.0-0.2); Absolute Eosinophil Count 0.05 k/cumm (0.0-0.7); Absolute Lymphocyte Count 0.87 k/cumm (1.2-3.4); Absolute Monocyte Count 1.18 k/cumm (0.11-0.7); Absolute Neutrophil Count 6.18 k/cumm (1.2-6.7); Basophils % 0.2; Eosinophils % 0.6; HCT 37.8 % (36.0-46.0); HGB 13.3 g/dL (12.0-15.5); Immature Grans % 0.1 %; Lymphocytes % 10.5; Mean Corp. HGB Concentration 35.2 g/dL (32.0-36.0); Mean Corpuscular Hemoglobin 35.5 pg (27.0-33.0); Mean Corpuscular Volume 100.8 fL (80-95); Mean Platelet Volume 10.3 fL (8.0-11.0); Monocytes % 14.2; Neutrophils % 74.4; Platelet Count 227 x1000/uL (130-400); RBC 3.75 m/cumm (4.00-5.20); RBC Distribution Width 13.2 % (11.7-14.6); White Blood Cell Count 8.31 k/cumm (4.4-10.8)
[2019-09-06 05:50] LABS: Anion Gap 9.2 mmol/L (3-11); BUN 5 mg/dL (7-18); CO2 27.8 mmol/L (21.0-32.0); Calcium 8.1 mg/dL (8.5-10.1); Chloride 99 mmol/L (98-107); Glucose 105 mg/dL (74-106); Magnesium 1.9 mg/dL (1.8-2.4); Potassium 3.2 mmol/L (3.5-5.1); Sodium 136 mmol/L (136-145)
--- NOTE | 2019-09-06 05:50 | NUR.NOTE ---
Pt is not keeping her cardiac monitoring leads on at this time. Nursing Note:
[2019-09-06] MEDS: Pantoprazole 40 MG TABCR PO (08:44)
[2019-09-06] MEDS: Cyanocobalamin 500 MCG TAB 1000 MCG PO (08:44)
[2019-09-06] MEDS: Magnesium Oxide 400 MG TAB PO (08:44)
[2019-09-06] MEDS: Metoprolol 12.5 MG TAB PO ×2 (08:44→09:50)
[2019-09-06] MEDS: Sucralfate 1 GM TAB PO (08:44)
[2019-09-06] MEDS: Thiamine 100 MG TAB PO (08:44)
[2019-09-06] MEDS: dilTIAZem CD 120 MG CAPCR 240 MG PO (08:44)
[2019-09-06] MEDS: Multivitamin TAB 1 TAB PO (08:45)
[2019-09-06] MEDS: Normal Saline Flush 10 ML SYR IVP (08:45)
[2019-09-06] MEDS: Atorvastatin 40 MG TAB PO (08:45)
[2019-09-06] MEDS: Aspirin E.C. 81 MG TABEC PO (08:45)
[2019-09-06] MEDS: Folic Acid 1 MG TAB PO (08:45)
[2019-09-06] MEDS: Furosemide 20 MG/2 ML VIAL IVP ×2 (08:46→17:01)
--- NOTE | 2019-09-06 08:50 | PGE_ITS ---
Date of Service Date of service: 09/06/19 Time of Service: 10:40 Assessment and Plan Assessment and plan (1) Alcohol withdrawal delirium, acute, hyperactive: Status: Acute Assessment and plan: Continue monitoring in the ICU on CIWA with prn ativan, vitamins. (2) Acute on chronic diastolic CHF (congestive heart failure), NYHA class 1: Status: Acute Assessment and plan: The weight has been all over the place in the chart, but clinically looks a bit better (legs w/o edema). Obtain repeat CXR. Continue diuresis. Pericardial effusion is trivial on the echo. I do not believe that her subclinical hypothyroidism could have caused this. Continue to diurese, monitoring BP, I/O's, daily weights, Cr. (3) Aspiration pneumonia: Status: Acute Assessment and plan: Continue dysphagia diet (post speech therapy eval 09/05/2019) Continue zosyn (day 2). Repeat CXR. (4) Bilateral pleural effusion: Status: Acute Assessment and plan: As above Continue diuresis. (5) Atrial fibrillation: Status: Chronic Assessment and plan: Rate reflects extent of alcohol withdrawal., likely due to underlying alcohol withdrawal. Continue home diltiazem, increase met oprolol. Continue PRN IV lopressor. (6) Chest pain: Status: Resolved Assessment and plan: Suspect esophagitis. Continue PPI. (7) Pericardial effusion: Status: Acute Assessment and plan: Trivial on echo. Continue diuresis. (8) Alcohol dependence: Status: Acute Assessment and plan: Monitor for withdrawal on CIWA with prn ativan, vitamins. As above (9) Hypokalemia: Status: Acute Assessment and plan: Replete; recheck in am (10) Hypomagnesemia: Status: Resolved Assessment and plan: recheck in am (11) Subclinical hypothyroidism: Status: Chronic Assessment and plan: Follow up as outpatient. (12) Falls: Status: Acute Assessment and plan: Has a sitter with her now. Await CT face Fall precautions. Will need PT eval when more mentally appropriate. (13) Lip laceration: Status: Acute Assessment and plan: Await facial CT. Will ice. (14) DVT prophylaxis: Status: Acute Assessment and plan: hold SC heparin given falls. Continue TEDs/SCDs (15) Discharge planning issues: Status: Acute Assessment and plan: Full code Continues to require ICU. Total Critical Care Time 45 minutes. Subjective Subjective Interval history since last seen: Fell x 2 overnight. Last time was at 5 am. Split lip on this fall. For CT at 2 PM. Lip hurts. Can swallow. Impairing her ability to speak. Swollen. No dizziness, chest pain, shortness of breath. Does have worsening cough. No n/v. CIWA 11 this am; A&Ox1. HR 130-160's. SBP 105. Exam Narrative Exam Narrative: General: Somnolent, arousable, not visibly tremulous, A&Ox1, NAD, speech slurred HEENT: EOMI, MMM, upper lip with small laceration on the R, not actively bleeding; it is swollen Cardiovascular: irregularly irregular rhythm, HR in 140's, no m/r/g Lungs: rhonchorous anteriorly, a little better with coughing Gastrointestinal: soft, nontender, nondistended Extremities: no BLE edema, symmetric, +1 B pedal pulses, no c/c. Objective Objective Clinical Data: Abnormal lab results 09/05/19 09/06/19 09/06/19 Range/Units 14:15 05:10 05:10 RBC 3.75 L (4.00-5.20) m/cumm MCV 100.8 H (80-95) fL MCH 35.5 H (27.0-33.0) pg Absolute Lymphocytes 0.87 L (1.2-3.4) k/cumm Absolute Monocytes 1.18 H (0.11-0.7) k/cumm Potassium 3.1 L 3.2 L (3.5-5.1) mmol/L BUN 4 L 5 L (7-18) mg/dL Calcium 8.1 L 8.1 L (8.5-10.1) mg/dL Vital Signs Temperature 37.2 C 09/06/19 03:29 Temperature Source Temporal Artery Scan 09/06/19 03:29 Pulse 97 H 09/06/19 03:29 Pulse 152 H 09/06/19 05:00 Respiratory Rate 33 H 09/06/19 05:00 Respiratory Effort Non-Labored 09/06/19 03:29 Respiratory Depth Normal 09/06/19 03:29 Respiratory Pattern Normal 09/06/19 03:29 Blood Pressure 95/73 L 09/05/19 23:32 Blood Pressure Mean 78 09/05/19 23:32 Blood Pressure Position Supine 09/06/19 03:29 Pulse Oximetry 96 09/06/19 03:29 Oxygen Delivery Method Room Air 09/06/19 03:29 Oxygen Flow Rate 0 09/06/19 03:29 Pain Level 2 09/05/19 21:23 Intake & Output 09/05/19 09/05/19 09/06/19 11:59 23:59 11:59 Intake Total 30 / 905.416 875.416 / 905.416 60 / 60 Output Total 500 / 1225 725 / 1225 200 / 200 Balance -470 / -319.584 150.416 / -319.584 -140 / -140 Weight 70.7 kg Intake: IV 30 / 545.416 515.416 / 545.416 Oral 360 / 360 60 / 60 Output: Urine 500 / 1225 725 / 1225 200 / 200 Other: Urine Color Yellow Yellow Yellow Dark Bell Urine Appearance Clear Clear Clear Urine Odor Strong Normal Comment voided on commode 150cc of dark clear Cola/bell urine. Mixed with scan amt loose stool. Emptied from commode at this time. mixed with stool Stool Occult Blood Negative Negative Stool Size Large Small Large Stool Characteristics Soft Soft Liquid Formed Brown Voiding Methods Bedside Commode Bedside Commode Laboratory Results WBC 8.31 k/cumm (4.4-10.8) 09/06/19 05:10 RBC 3.75 m/cumm (4.00-5.20) L 09/06/19 05:10 Hgb 13.3 g/dL (12.0-15.5) 09/06/19 05:10 Hct 37.8 % (36.0-46.0) 09/06/19 05:10 MCV 100.8 fL (80-95) H 09/06/19 05:10 MCH 35.5 pg (27.0-33.0) H 09/06/19 05:10 MCHC 35.2 g/dL (32.0-36.0) 09/06/19 05:10 RDW 13.2 % (11.7-14.6) 09/06/19 05:10 Plt Count 227 x1000/uL (130-400) 09/06/19 05:10 MPV 10.3 fL (8.0-11.0) 09/06/19 05:10 Immature Gran % 0.1 % 09/06/19 05:10 Neutrophils % 74.4 09/06/19 05:10 Lymphocytes % 10.5 09/06/19 05:10 Monocytes % 14.2 09/06/19 05:10 Eosinophils % 0.6 09/06/19 05:10 Basophils % 0.2 09/06/19 05:10 Absolute Neutrophils 6.18 k/cumm (1.2-6.7) 09/06/19 05:10 Absolute Lymphocytes 0.87 k/cumm (1.2-3.4) L 09/06/19 05:10 Absolute Monocytes 1.18 k/cumm (0.11-0.7) H 09/06/19 05:10 Absolute Eosinophils 0.05 k/cumm (0.0-0.7) 09/06/19 05:10 Absolute Basophils 0.02 k/cumm (0.0-0.2) 09/06/19 05:10 PT 12.1 sec (9.3-11.0) H 09/04/19 10:50 INR 1.2 (0.9-1.1) H 09/04/19 10:50 APTT 30.6 sec (21.0-31.4) 09/04/19 10:50 Sodium 136 mmol/L (136-145) 09/06/19 05:10 Potassium 3.2 mmol/L (3.5-5.1) L 09/06/19 05:10 Chloride 99 mmol/L (98-107) 09/06/19 05:10 Carbon Dioxide 27.8 mmol/L (21.0-32.0) 09/06/19 05:10 Anion Gap 9.2 mmol/L (3-11) 09/06/19 05:10 BUN 5 mg/dL (7-18) L 09/06/19 05:10 Creatinine 0.70 mg/dL (0.55-1.02) 09/06/19 05:10 Estimated GFR/1.73 m2 >= 60.00 (mL/min/1.73m2) 09/06/19 05:10 Glucose 105 mg/dL (74-106) 09/06/19 05:10 Calcium 8.1 mg/dL (8.5-10.1) L 09/06/19 05:10 Magnesium 1.9 mg/dL (1.8-2.4) 09/06/19 05:10 Total Bilirubin 2.3 mg/dL (0.2-1.0) H 09/05/19 06:10 Conjugated Bilirubin 1.38 mg/dL (0.00-0.20) H 09/05/19 06:10 AST 155 U/L (15-37) H 09/05/19 06:10 ALT 75 U/L (14-59) H 09/05/19 06:10 Alkaline Phosphatase 266 U/L (46-116) H 09/05/19 06:10 Troponin I < 0.05 ng/mL (<0.06) 09/05/19 06:10 NT-Pro-B Natriuret Pep 1248 pg/mL (<300) H 09/04/19 10:50 Total Protein 6.9 g/dL (6.4-8.2) 09/05/19 06:10 Albumin 2.4 g/dL (3.4-5.0) L 09/05/19 06:10 Triglycerides 59 mg/dL (<150) 09/05/19 06:10 Total Cholesterol 71 mg/dL (<200) 09/05/19 06:10 LDL Cholesterol, Calc 35 mg/dL (<100) 09/05/19 06:10 HDL Cholesterol 25 mg/dL (40-60) L 09/05/19 06:10 TSH 5.74 uIU/mL (0.36-3.74) H 09/05/19 06:10 Free T4 1.26 ng/dL (0.76-1.46) 09/05/19 06:10 COVID-19 PCR Negative (Negative) 09/04/19 10:00 Nasopharyn COVID-19 PCR Not Applicable 09/04/19 10:00 Ref Test Perform Site [place] [facility] 09/04/19 10:[address]
[2019-09-06] MEDS: POTASSIUM CHLORIDE 20 MEQ/100 ML BAG 50 MEQ IVPB ×4 (09:10→17:01)
--- NOTE | 2019-09-06 09:48 | CMPROGNOTE_ITS ---
Care Management Progress Note S/O: Shantel continues to be closely monitored in the ICU at this time. She became quite agitated and impulsive overnight and fell, resulting in splitting her lip. She was lying in bed and was pleasant in interaction. CM continues to follow. A: 59 year old female admitted to [facility] 09/04/19 for Acute on Chronic Diastolic CHF, Alcohol withdrawal P: Shantel remains in the ICU at this time. She is being monitored closely for withdrawal and treated per CIWA protocol. CM continues to follow and will attempt to connect Shantel to [facility] directly upon discharge as well as [facility]. Shantel often transport via [facility] when leaving [place].
[2019-09-06] MEDS: Metoprolol 5 MG/5 ML VIAL 2.5 MG IVP (11:53)
--- NOTE | 2019-09-06 13:00 | DI.CT_ITS ---
EXAM: CT FACIAL WO CLINICAL HISTORY: s/p fall, lip trauma, difficulty speaking. TECHNIQUE: Imaging Protocol: Axial computed tomography images with coronal and sagittal reformatted images were created and reviewed CONTRAST MATERIAL: Noncontrast COMPARISON: CT CT HEAD WO from 09/05/2019 FINDINGS: Facial Bones: No fracture is noted in facial bones. Degenerative changes are noted in the cervica l spine. Sinuses and Mastoids: Unremarkable. Globes, extraocular muscles, optic nerves and retrobulbar fat: Normal. Upper aerodigestive tract: Normal. Mandible and bilateral temporomandibular joints: Normal. Soft tissues: Soft tissue swelling around the upper lip. The visualized portions of the brain are un remarkable. IMPRESSION: No evidence of fracture. RADIATION DOSE DELIVERED: Total DLP Total DLP Total DLP DATA REPOSITORY: All CT scans at this facility are submitted to the National Radiology Data Registry (NRDR) Dose Index Registry (DIR) with the [employer] (ACR). RADIATION OPTIMIZATION: All CT scans at this facility use at least one of these dose optimization te chniques: automated exposure control; mA and/or kV adjustment per patient size (includes targeted exa ms where dose is matched to clinical indication); or iterative reconstruction.
[2019-09-06] MEDS: Metoprolol 25 MG TAB PO (14:20)
--- NOTE | 2019-09-06 15:45 | SPP_ITS ---
Date of service: 09/06/19 Time of Service: 15:11 Subjective Patient generally able to express wants/needs with repetition needed at times, however speech observed to be 50-60% intelligible during session today. Patient demonstrates increased lethargy as visit progressed. Objective/Assessment/Plan Objective Treatment Techniques &Outcomes: Attempted PO trials of small ice chips via spoon with assisted feeding x4, patient able to demonstrate swallow initiation in 3/4 attempts and improved lingual/labial range of motion, however final attempt resulted in anterior spillage of liquid, refusal of additional PO. Attempts at using straw, despite provided assist, were unsuccessful. Pt refused solid trials of puree texture x3. Patient/Caregiver/Staff Education:: Discussed oral care recommendations to reduce risk of aspiration pneumonia, promote overall oral comfort with nursing staff Assessment Noted difficulty with oral manipulation/control upon entry to room (suspect this is partially due to dry oral mucosa and recent incident where pt reportedly injured lip; however pt verbally denies pain near mouth when asked). Pt demonstrates difficulty with labial occlusion (around straw) when trialed throughout visit, and unable to propel material through straw today; significant lethargy as visit progressed, preventing further safe PO trials. Ice chips via PO today were noted to improve range of motion for oral structures. Staff encouraged to continue to complete oral care no less than 3x/day to improve oral hygiene, especially given pt?s significant aspiration risk. Plan Continue attempts at PO trials of puree textures via spoon and/or ice chips via spoon with RECRUITING AND SELECTION CONSULTANT only when alert, upright, and 02 is above 89. Recommend continued diagnostic treatment visits with RECRUITING AND SELECTION CONSULTANT when patient is awake/alert to determine further treatment plan of care and appropriate goals, staff education/training as needed. Rehab Potential continues to be guarded. Short-Term Goals: TBD pending additional diagnostic treatment session. Long-Term Goals: TBD pending additional diagnostic treatment session. Pt Goal: To go home. PLAN Planned Treatment Interventions: TBD. Frequency: TBD. Intensity: TBD. Duration: TBD. Discharge Plan: TBD. SWALLOWING RECOMMENDATIONS Solids: Puree trials via teaspoons from staff only. Liquids: Mildly thick liquids (nectar) via standard flexible straw only, with staff assistance to limit volume (please pinch the straw to ensure single, small sips). Medication Administration: Whole in puree. Please crush in puree if needed. Level of Assistance/Supervision: 100% direct supervision and assistance for all PO intake. Please monitor O2 stats for PO intake. Do not feed pt or provide drinks if below 89%. Strategies/Adaptations/AE: Please present thickened drinks (mildly thick/nectar thick) only in a cup with standard flexible straw. Support pt to bring straw to mouth and staff should pinch straw to limit flow to single small sips. If trialing puree, please present teaspoons only. Posture/Positioning Needs: Pt must be fully upright for all PO intake. Do not feed reclined. Aspiration precautions. Recommendations Other: No diet texture changes relative to initial evaluation at this time. Strategies/Adaptions: Other (Oral care at least 3x/day and as tolerated; Upright, awake/alert for any PO intake) Supervision: Frequent/periodic check-ins (Provide oral care when tolerated by patient, if pt demonstrates refusal, consider verbal counseling for rationale of oral care and placing cold spoon and/or ice on outside of lips to enhance sensation prior to attempting oral care) and Monitor O2 stats(do not feed patient if O2 under 90%) Total Time Spent: 35 mins
[2019-09-06] MEDS: dilTIAZem 125 MG in Normal Saline 100 ML IV (16:30)
[2019-09-06 18:05] LABS: BE 2.9 mmol/L (-3-3); HCO3 26 mmol/L (22-28); pCO2 31 mmHg (34-47); pH 7.52 (7.35-7.45); pO2 60 mmHg (83-108); sO2 92 % (94-98); tCO2 23 mmol/L (22-29)
[2019-09-06 18:07] LABS: FIO2 21 %; Site Left Radial
[2019-09-06 20:36] LABS: BE 1.7 mmol/L (-3-3); HCO3 26 mmol/L (22-28); pCO2 40 mmHg (34-47); pH 7.43 (7.35-7.45); pO2 75 mmHg (83-108); sO2 95 % (94-98); tCO2 23 mmol/L (22-29)
[2019-09-06 20:37] LABS: FIO2 50 %
[2019-09-06] MEDS: MIDAZOLAM 50 MG in Normal Saline 90 ML IV (20:42)
--- NOTE | 2019-09-06 21:28 | W.PM.PROGNOT ---
Date of Service Date of service: 09/06/19 Time of Service: 21:28 Subjective Subjective Interval history since last seen: ICU event note: I was called around 6 PM by nursing regarding patient's ongoing tachypnea. Patient was also having difficulty protecting her airway, choking on any fluids and unable to take p.o. medications. ABG performed and showed respiratory alkalosis. Even though the ABG did not indicate eminent respiratory failure, given the patient's airway difficulties and need for ongoing lorazepam as well as her ongoing tachypnea, decision was made to proceed with intubation. Patient was unable to consent due to her mental status with active delirium related to alcohol withdrawal, but her full CODE STATUS was noted. Anesthesia was called and proceeded with intubation without complication. Blood pressures were already low in the 80s to 90s over 50s to 60s and she was having difficulty tolerating any IV diltiazem prior to intubation. Her blood pressures dipped lower after intubation, but improved to MAT in the 60s after fluid bolus and switching from propofol to Versed as a sedating agent. A line was placed. Repeat ABG after intubation showed normalized pH and PCO2 with only mild hypoxia. Objective Objective Clinical Data: Abnormal lab results 09/06/19 09/06/19 09/06/19 Range/Units 05:10 05:10 18:00 RBC 3.75 L (4.00-5.20) m/cumm MCV 100.8 H (80-95) fL MCH 35.5 H (27.0-33.0) pg Absolute Lymphocytes 0.87 L (1.2-3.4) k/cumm Absolute Monocytes 1.18 H (0.11-0.7) k/cumm ABG pH 7.52 H (7.35-7.45) ABG pCO2 31 L (34-47) mmHg ABG pO2 60 L (83-108) mmHg ABG O2 Saturation 92 L (94-98) % Potassium 3.2 L (3.5-5.1) mmol/L BUN 5 L (7-18) mg/dL Calcium 8.1 L (8.5-10.1) mg/dL 09/06/19 Range/Units 20:23 RBC (4.00-5.20) m/cumm MCV (80-95) fL MCH (27.0-33.0) pg Absolute Lymphocytes (1.2-3.4) k/cumm Absolute Monocytes (0.11-0.7) k/cumm ABG pH (7.35-7.45) ABG pCO2 (34-47) mmHg ABG pO2 75 L (83-108) mmHg ABG O2 Saturation (94-98) % Potassium (3.5-5.1) mmol/L BUN (7-18) mg/dL Calcium (8.5-10.1) mg/dL Vital Signs Temperature 36.9 C 09/06/19 19:58 Temperature Source Temporal Artery Scan 09/06/19 17:07 Pulse 75 09/06/19 20:00 Pulse 121 H 09/06/19 20:00 Respiratory Rate 15 09/06/19 20:54 Respiratory Effort 09/06/19 19:58 Respiratory Depth Normal 09/06/19 17:07 Respiratory Pattern Normal 09/06/19 17:07 Blood Pressure 72/58 L 09/06/19 20:00 Blood Pressure Mean 61 09/06/19 20:00 Blood Pressure Position Supine 09/06/19 17:07 Pulse Oximetry 96 09/06/19 20:54 Respiratory End-tidal CO2 31 09/06/19 20:54 Oxygen Delivery Method Nasal Cannula 09/06/19 19:58 Oxygen Flow Rate 2 09/06/19 19:58 Fraction of Inspired Oxygen (FIO2) 50 09/06/19 20:54 Pain Level 2 09/06/19 17:07 Intake & Output 09/05/19 09/06/19 09/06/19 23:59 11:59 23:59 Intake Total 875.416 / 905.416 310 / 573.375 263.375 / 573.375 Output Total 725 / 1225 200 / 220 Balance 150.416 / -319.584 110 / 353.375 243.375 / 353.375 Weight 70.7 kg Intake: IV 515.416 / 545.416 250 / 513.375 263.375 / 513.375 Oral 360 / 360 60 / 60 Output: Urine 725 / 1225 200 / 220 20 / 220 Other: Urine Color Yellow Yellow Light Kesha Urine Appearance Clear Clear Clear Urine Odor Normal Comment Mixed with scan amt loose stool. Emptied from commode at this time. mixed with stool ramachandran to gravity little output Stool Occult Blood Negative Stool Size Small Large Stool Characteristics Soft Liquid Formed Brown Voiding Methods Bedside Commode Diaper Incontinent Laboratory Results WBC 8.31 k/cumm (4.4-10.8) 09/06/19 05:10 RBC 3.75 m/cumm (4.00-5.20) L 09/06/19 05:10 Hgb 13.3 g/dL (12.0-15.5) 09/06/19 05:10 Hct 37.8 % (36.0-46.0) 09/06/19 05:10 MCV 100.8 fL (80-95) H 09/06/19 05:10 MCH 35.5 pg (27.0-33.0) H 09/06/19 05:10 MCHC 35.2 g/dL (32.0-36.0) 09/06/19 05:10 RDW 13.2 % (11.7-14.6) 09/06/19 05:10 Plt Count 227 x1000/uL (130-400) 09/06/19 05:10 MPV 10.3 fL (8.0-11.0) 09/06/19 05:10 Immature Gran % 0.1 % 09/06/19 05:10 Neutrophils % 74.4 09/06/19 05:10 Lymphocytes % 10.5 09/06/19 05:10 Monocytes % 14.2 09/06/19 05:10 Eosinophils % 0.6 09/06/19 05:10 Basophils % 0.2 09/06/19 05:10 Absolute Neutrophils 6.18 k/cumm (1.2-6.7) 09/06/19 05:10 Absolute Lymphocytes 0.87 k/cumm (1.2-3.4) L 09/06/19 05:10 Absolute Monocytes 1.18 k/cumm (0.11-0.7) H 09/06/19 05:10 Absolute Eosinophils 0.05 k/cumm (0.0-0.7) 09/06/19 05:10 Absolute Basophils 0.02 k/cumm (0.0-0.2) 09/06/19 05:10 PT 12.1 sec (9.3-11.0) H 09/04/19 10:50 INR 1.2 (0.9-1.1) H 09/04/19 10:50 APTT 30.6 sec (21.0-31.4) 09/04/19 10:50 ABG Sample Site 09/06/19 20:23 ABG pH 7.43 (7.35-7.45) 09/06/19 20:23 ABG pCO2 40 mmHg (34-47) 09/06/19 20:23 ABG pO2 75 mmHg (83-108) L 09/06/19 20:23 ABG HCO3 26 mmol/L (22-28) 09/06/19 20:23 ABG Total CO2 23 mmol/L (22-29) 09/06/19 20:23 ABG O2 Saturation 95 % (94-98) 09/06/19 20: ABG Base Excess 1.7 mmol/L (-3-3) 09/06/19 20:23 Oxygen Liter Flow 14 320 5 L 09/06/19 20:23 FiO2 50 % 09/06/19 20:23 Sodium 136 mmol/L (136-145) 09/06/19 05:10 Potassium 3.2 mmol/L (3.5-5.1) L 09/06/19 05:10 Chloride 99 mmol/L (98-107) 09/06/19 05:10 Carbon Dioxide 27.8 mmol/L (21.0-32.0) 09/06/19 05:10 Anion Gap 9.2 mmol/L (3-11) 09/06/19 05:10 BUN 5 mg/dL (7-18) L 09/06/19 05:10 Creatinine 0.70 mg/dL (0.55-1.02) 09/06/19 05:10 Estimated GFR/1.73 m2 >= 60.00 (mL/min/1.73m2) 09/06/19 05:10 Glucose 105 mg/dL (74-106) 09/06/19 05:10 Calcium 8.1 mg/dL (8.5-10.1) L 09/06/19 05:10 Magnesium 1.9 mg/dL (1.8-2.4) 09/06/19 05:10 Total Bilirubin 2.3 mg/dL (0.2-1.0) H 09/05/19 06:10 Conjugated Bilirubin 1.38 mg/dL (0.00-0.20) H 09/05/19 06:10 AST 155 U/L (15-37) H 09/05/19 06:10 ALT 75 U/L (14-59) H 09/05/19 06:10 Alkaline Phosphatase 266 U/L (46-116) H 09/05/19 06:10 Troponin I < 0.05 ng/mL (<0.06) 09/05/19 06:10 NT-Pro-B Natriuret Pep 1248 pg/mL (<300) H 09/04/19 10:50 Total Protein 6.9 g/dL (6.4-8.2) 09/05/19 06:10 Albumin 2.4 g/dL (3.4-5.0) L 09/05/19 06:10 Triglycerides 59 mg/dL (<150) 09/05/19 06:10 Total Cholesterol 71 mg/dL (<200) 09/05/19 06:10 LDL Cholesterol, Calc 35 mg/dL (<100) 09/05/19 06:10 HDL Cholesterol 25 mg/dL (40-60) L 09/05/19 06:10 TSH 5.74 uIU/mL (0.36-3.74) H 09/05/19 06:10 Free T4 1.26 ng/dL (0.76-1.46) 09/05/19 06:10 COVID-19 PCR Negative (Negative) 09/04/19 10:00 Nasopharyn COVID-19 PCR Not Applicable 09/04/19 10:00 Ref Test Perform Site [place] [facility] 09/04/19 10:00
--- NOTE | 2019-09-06 22:00 | DI.RAD_ITS ---
EXAM: XR PORTABLE CHEST AP POST LINE CLINICAL HISTORY: s/p intubation, NG tube TECHNIQUE: 2D digital imaging was performed. COMPARISON: CR XR CHEST 1V IN DI DEPT from 09/06/2019 FINDINGS: An endotracheal tube is been placed. The tip lies at the level of the clavicles. Endotracheal tube has been placed which projects in the region of the stomach. Multiple leads overlie the chest. Hear t is again noted to be enlarged. There is stable bilateral pleural effusion. There are mildly incre ased basilar densities which could represent pneumonia or atelectasis. IMPRESSION: Satisfactory placement of endotracheal tube and nasogastric tube. Bilateral pleural effusions and b asilar atelectasis versus infiltrates.
--- NOTE | 2019-09-06 22:36 | DI.VRAD_ITS ---
PROCEDURE INFORMATION: Exam: XR Chest, 1 View Exam date and time: 09/06/2019 10:00 PM Age: 59 years old Clinical indication: Device placement; Ett placement (vent status); Prior surgery; Surgery date: Post-operative (0-2 days); Surgery type: Ng tube and intubation TECHNIQUE: Imaging protocol: XR of the chest Views: 1 view. COMPARISON: CR XR CHEST 1V IN DI DEPT 09/06/2019 1:17 PM FINDINGS: Tubes, catheters and devices: Endotracheal tube is been position with its tip seen 6-7 cm above the beena. Nasogastric tube is also now seen in place traversing the esophagus and proximal stomach with the distal portion of this tube not included in the current field of view. Lungs: Suspected atelectatic/consolidative change at the left base. No other discrete parenchymal mass or consolidation detected. Pleural space: Probable bibasilar effusions. Heart/Mediastinum: Cardiomegaly is similar appearance and vessel margins are relatively sharply defined. Bones/joints: No new osseous lesions are detected. IMPRESSION: 1. Attention is directed to the position of the endotracheal tube, the tip of which is seen 6-7 cm above the level of the beena. 2. Suspected left basilar atelectatic/consolidative change with probable bibasilar effusions. Dictated and Authenticated by: Kalpesh Sullivan MD. Ordering:GLO Waller MD
[2019-09-07] VITALS (91 sets, daily range): BP systolic 70–136; BP diastolic 49–88; PULSE 53–147; RESP 11–26; TEMP 35.5–36.9; O2SAT 92–100
[2019-09-07] MEDS: PIPERACILLIN/TAZO 3.375 GM in Normal Saline 50 ML IVPB ×4 (00:58→18:07)
[2019-09-07] MEDS: MIDAZOLAM 50 MG in Normal Saline 90 ML 11.4 MG IV (05:59)
--- NOTE | 2019-09-07 06:49 | DI.RAD_ITS ---
EXAM: XR PORTABLE CHEST AP POST LINE CLINICAL HISTORY: intubated TECHNIQUE: 2D digital imaging was performed. COMPARISON: CR,XR XR PORTABLE CHEST AP POST LINE from 09/06/2019 FINDINGS: The endotracheal tube is unchanged in position. The nasogastric tube is unchanged. Multiple leads overlie the chest. Cardiomegaly and small bilateral pleural effusions are again noted. There are mi ld densities at the lung bases, unchanged. IMPRESSION: Stable appearance.
[2019-09-07 07:07] LABS: HCT 36.4 % (36.0-46.0); HGB 12.5 g/dL (12.0-15.5); Mean Corp. HGB Concentration 34.3 g/dL (32.0-36.0); Mean Corpuscular Hemoglobin 35.3 pg (27.0-33.0); Mean Corpuscular Volume 102.8 fL (80-95); Mean Platelet Volume 10.8 fL (8.0-11.0); Platelet Count 222 x1000/uL (130-400); RBC 3.54 m/cumm (4.00-5.20); RBC Distribution Width 13.5 % (11.7-14.6); White Blood Cell Count 8.94 k/cumm (4.4-10.8)
[2019-09-07 07:14] LABS: Anion Gap 10.2 mmol/L (3-11); BUN 7 mg/dL (7-18); CO2 24.8 mmol/L (21.0-32.0); CREATININE 0.58 mg/dL (0.55-1.02); Calcium 7.6 mg/dL (8.5-10.1); Chloride 103 mmol/L (98-107); Glucose 104 mg/dL (74-106); Magnesium 1.6 mg/dL (1.8-2.4); Potassium 3.8 mmol/L (3.5-5.1); Sodium 138 mmol/L (136-145)
--- NOTE | 2019-09-07 07:22 | DI.VRAD_ITS ---
PROCEDURE INFORMATION: Exam: XR Chest, 1 View Exam date and time: 09/07/2019 6:49 AM Age: 59 years old Clinical indication: Device placement; Ett placement (vent status); Prior surgery; Surgery date: Post-operative (0-2 days); Surgery type: Intubated, ng tube TECHNIQUE: Imaging protocol: XR of the chest Views: 1 view. COMPARISON: CR XR PORTABLE CHEST AP POST LINE 09/06/2019 9:54 PM FINDINGS: Tubes, catheters and devices: Support devices appear stable. Lungs: There is again some dense left basilar consolidation with mild hazy opacity at the right base. Pleural space: There are again probably small bilateral pleural effusions. No pneumothorax is identified. Heart/Mediastinum: The cardiomediastinal silhouette is fairly stable in appearance, with similar cardiomegaly. Bones/joints: Degenerative changes again involve the spine and shoulders. IMPRESSION: Stable radiographic appearance of the chest since one day prior. Dictated and Authenticated by: Cole Scanlon MD. Ordering:GLO Waller MD
--- NOTE | 2019-09-07 08:20 | W.PM.PROGNOT ---
Date of Service Date of service: 09/07/19 Time of Service: 11:34 Assessment and Plan Assessment and plan (1) Alcohol withdrawal delirium, acute, hyperactive: Status: Acute Assessment and plan: Now intubated, sedated with midazolam and precedex. BPs not permitting propofol. Monitor for signs of autonomic instability. Continue to monitor in the ICU. (2) Respiratory failure: Status: Acute Assessment and plan: Primary reason for intubation was airway protection during alcohol withdrawal. However, does also have aspiration PNA. Acute on chronic diastolic CHF with B pleural effusions less of a factor - significantly diuresed. Continue mechanical ventilation with daily sedation vacations. Continue treatment of aspiration PNA. I do not feel that at this point she is significantly volume overloaded, but will monitor O2 requirements as gentle fluids are being prescribed. (3) Aspiration pneumonia: Status: Acute Assessment and plan: Intuabted for airway protection. Continue zosyn (day 3). (4) Acute on chronic diastolic CHF (congestive heart failure), NYHA class 1: Status: Acute Assessment and plan: Weights in the computer are unreliable. CXR looks better with decrease in size/near resolution of pleural effusions. Due to lower BP's, I would like to give Shantel gentle IVF, carefully monitoring her respiratory status. I do not believe that her subclinical hypothyroidism could have caused this. Diuresis d/'nancy. Continue monitoring BP, I/O's, daily weights, Cr. (5) Bilateral pleural effusion: Status: Resolved Assessment and plan: As above (6) E. coli UTI: Status: Acute Assessment and plan: with mixed gram positives. Presently on zosyn day 3. Obtain repeat urine C&S. (7) Atrial fibrillation: Status: Chronic Assessment and plan: Rates much better since intubation. Rapid rates likely reflected extent of alcohol withdrawal. Hold diltiazem/metoprolol. If BP's permit and rapid, PRN IV lopressor. Otherwise, if becomes rapid, would use digoxin. (8) Chest pain: Status: Resolved Assessment and plan: Suspect esophagitis. Continue PPI. (9) Pericardial effusion: Status: Chronic Assessment and plan: Trivial on echo. Follow up as outpatient. (10) Alcohol dependence: Status: Chronic Assessment and plan: As above (11) Hypokalemia: Status: Resolved Assessment and plan: recheck in am (12) Hypomagnesemia: Status: Acute Assessment and plan: Replete and recheck in am (13) Subclinical hypothyroidism: Status: Chronic Assessment and plan: Follow up as outpatient. (14) Falls: Status: Acute Assessment and plan: intubated and sedated at this time. Resume PT once off the vent. (15) Lip laceration: Status: Acute Assessment and plan: Facial CT neg. Looks better today. (16) DVT prophylaxis: Status: Acute Assessment and plan: Resume SC heparin Continue TEDs/SCDs (17) Discharge planning issues: Status: Acute Assessment and plan: Full code Continues to require ICU. Total Critical Care Time 60 minutes. Subjective Subjective Interval history since last seen: Intubated for inability to protect airway last night. On sedation with versed and precedex. Has an NGT. Placed in adaptive ventilation mode - appears to be doing well. FiO2 40%. Art line in - being re-zeroed. MAP 70-77s. Exam Narrative Exam Narrative: General: Intubated, sedated, does arouse slightly to painful stimuli, not following commands HEENT: eyes closed, dry crust noted, dry MM, ET tube and NGT in place Cardiovascular: slightly irregular rhythm, HR in 90s Lungs: good bilateral air entry/ventilator sounds. Gastrointestinal: soft, nontender, nondistended Extremities: no BLE edema, symmetric, +1 B pedal pulses Objective Objective Clinical Data: Abnormal lab results 09/06/19 09/06/19 09/07/19 Range/Units 18:00 20:23 06:22 RBC (4.00-5.20) m/cumm MCV (80-95) fL MCH (27.0-33.0) pg ABG pH 7.52 H (7.35-7.45) ABG pCO2 31 L (34-47) mmHg ABG pO2 60 L 75 L (83-108) mmHg ABG O2 Saturation 92 L (94-98) % Calcium 7.6 L (8.5-10.1) mg/dL Magnesium 1.6 L (1.8-2.4) mg/dL 09/07/19 Range/Units 06:22 RBC 3.54 L (4.00-5.20) m/cumm MCV 102.8 H (80-95) fL MCH 35.3 H (27.0-33.0) pg ABG pH (7.35-7.45) ABG pCO2 (34-47) mmHg ABG pO2 (83-108) mmHg ABG O2 Saturation (94-98) % Calcium (8.5-10.1) mg/dL Magnesium (1.8-2.4) mg/dL Vital Signs Temperature 36.7 C 09/07/19 04:44 Temperature Source Temporal Artery Scan 09/07/19 04:44 Pulse 102 H 09/07/19 00:00 Pulse 104 H 09/07/19 02:00 Respiratory Rate 18 09/07/19 08:00 Respiratory Effort 09/07/19 04:44 Respiratory Depth Normal 09/07/19 04:44 Respiratory Pattern Tachypnea 09/06/19 20:00 Blood Pressure 81/59 L 09/07/19 04:44 Blood Pressure Mean 66 09/07/19 04:44 Blood Pressure Position Supine 09/07/19 04:44 Pulse Oximetry 99 09/07/19 08:00 Respiratory End-tidal CO2 27 09/07/19 02:00 Oxygen Delivery Method Mechanical Ventilator 09/07/19 04:44 Oxygen Flow Rate 0 09/07/19 04:44 Fraction of Inspired Oxygen (FIO2) 40 09/07/19 04:44 Pain Level 0 09/07/19 00:00 Intake & Output 09/06/19 09/06/19 09/07/19 11:59 23:59 11:59 Intake Total 310 / 595.406 270.531 / 595.406 179.416 / 179.416 Output Total 200 / 220 20 / 220 700 / 700 Balance 110 / 375.406 250.531 / 375.406 -520.584 / -520.584 Weight 70.7 kg 73.3 kg Intake: IV 250 / 535.406 270.531 / 535.406 179.416 / 179.416 Oral 60 / 60 Output: Gastric Drainage 100 / 100 Right Nare 100 / 100 Urine 200 / 220 20 / 220 600 / 600 Other: Urine Color Yellow Light Kesha Dark Kesha Urine Appearance Clear Clear Clear Urine Odor Normal Comment mixed with stool pt has indweling ramachandran cath pt has indweling ramachandran cath Stool Size Large Stool Characteristics Liquid Brown Voiding Methods Diaper Incontinent Laboratory Results WBC 8.94 k/cumm (4.4-10.8) 09/07/19 06:22 RBC 3.54 m/cumm (4.00-5.20) L 09/07/19 06:22 Hgb 12.5 g/dL (12.0-15.5) 09/07/19 06:22 Hct 36.4 % (36.0-46.0) 09/07/19 06:22 MCV 102.8 fL (80-95) H 09/07/19 06:22 MCH 35.3 pg (27.0-33.0) H 09/07/19 06:22 MCHC 34.3 g/dL (32.0-36.0) 09/07/19 06:22 RDW 13.5 % (11.7-14.6) 09/07/19 06:22 Plt Count 222 x1000/uL (130-400) 09/07/19 06:22 MPV 10.8 fL (8.0-11.0) 09/07/19 06:22 Immature Gran % 0.1 % 09/06/19 05:10 Neutrophils % 74.4 09/06/19 05:10 Lymphocytes % 10.5 09/06/19 05:10 Monocytes % 14.2 09/06/19 05:10 Eosinophils % 0.6 09/06/19 05:10 Basophils % 0.2 09/06/19 05:10 Absolute Neutrophils 6.18 k/cumm (1.2-6.7) 09/06/19 05:10 Absolute Lymphocytes 0.87 k/cumm (1.2-3.4) L 09/06/19 05:10 Absolute Monocytes 1.18 k/cumm (0.11-0.7) H 09/06/19 05:10 Absolute Eosinophils 0.05 k/cumm (0.0-0.7) 09/06/19 05:10 Absolute Basophils 0.02 k/cumm (0.0-0.2) 09/06/19 05:10 PT 12.1 sec (9.3-11.0) H 09/04/19 10:50 INR 1.2 (0.9-1.1) H 09/04/19 10:50 APTT 30.6 sec (21.0-31.4) 09/04/19 10:50 ABG Sample Site 09/06/19 20:23 ABG pH 7.43 (7.35-7.45) 09/06/19 20:23 ABG pCO2 40 mmHg (34-47) 09/06/19 20:23 ABG pO2 75 mmHg (83-108) L 09/06/19 20: ABG HCO3 26 mmol/L (22-28) 09/06/19 20:23 ABG Total CO2 23 mmol/L (22-29) 09/06/19 20:23 ABG O2 Saturation 95 % (94-98) 09/06/19 20: ABG Base Excess 1.7 mmol/L (-3-3) 09/06/19 20:23 Oxygen Liter Flow 14 320 5 L 09/06/19 20: FiO2 50 % 09/06/19 20:23 Sodium 138 mmol/L (136-145) 09/07/19 06:22 Potassium 3.8 mmol/L (3.5-5.1) 09/07/19 06:22 Chloride 103 mmol/L (98-107) 09/07/19 06:22 Carbon Dioxide 24.8 mmol/L (21.0-32.0) 09/07/19 06:22 Anion Gap 10.2 mmol/L (3-11) 09/07/19 06:22 BUN 7 mg/dL (7-18) 09/07/19 06:22 Creatinine 0.58 mg/dL (0.55-1.02) 09/07/19 06:22 Estimated GFR/1.73 m2 >= 60.00 (mL/min/1.73m2) 09/07/19 06:22 Glucose 104 mg/dL (74-106) 09/07/19 06:22 Calcium 7.6 mg/dL (8.5-10.1) L 09/07/19 06:22 Magnesium 1.6 mg/dL (1.8-2.4) L 09/07/19 06:22 Total Bilirubin 2.3 mg/dL (0.2-1.0) H 09/05/19 06:10 Conjugated Bilirubin 1.38 mg/dL (0.00-0.20) H 09/05/19 06:10 AST 155 U/L (15-37) H 09/05/19 06:10 ALT 75 U/L (14-59) H 09/05/19 06:10 Alkaline Phosphatase 266 U/L (46-116) H 09/05/19 06:10 Troponin I < 0.05 ng/mL (<0.06) 09/05/19 06:10 NT-Pro-B Natriuret Pep 1248 pg/mL (<300) H 09/04/19 10:50 Total Protein 6.9 g/dL (6.4-8.2) 09/05/19 06:10 Albumin 2.4 g/dL (3.4-5.0) L 09/05/19 06:10 Triglycerides 59 mg/dL (<150) 09/05/19 06:10 Total Cholesterol 71 mg/dL (<200) 09/05/19 06:10 LDL Cholesterol, Calc 35 mg/dL (<100) 09/05/19 06:10 HDL Cholesterol 25 mg/dL (40-60) L 09/05/19 06:10 TSH 5.74 uIU/mL (0.36-3.74) H 09/05/19 06:10 Free T4 1.26 ng/dL (0.76-1.46) 09/05/19 06:10 COVID-19 PCR Negative (Negative) 09/04/19 10:00 Nasopharyn COVID-19 PCR Not Applicable 09/04/19 10:00 Ref Test Perform Site [facility] lab 09/04/19 10:00 CXR 09/07/2019 The endotracheal tube is unchanged in position. The nasogastric tube is unchanged. Multiple leads overlie the chest. Cardiomegaly and small bilateral pleural effusions are again noted. There are mild densities at the lung bases, unchanged. IMPRESSION: Stable appearance. KUB 09/07/2019: Satisfactory position of nasogastric tube.
[2019-09-07] MEDS: ACETAMINOPHEN 1,000 MG/100 ML BTL 400 MG IVPB ×2 (08:30→17:08)
[2019-09-07] MEDS: Folic Acid 1 MG TAB NG (09:30)
--- NOTE | 2019-09-07 09:38 | DI.RAD_ITS ---
EXAM: XR ABDOMEN FLAT PLATE INDICATION: confirm NGT placement. COMPARISON: CR,XR XR PORTABLE CHEST AP POST LINE from 09/07/2019 TECHNIQUE: 2D digital imaging was performed portably. FINDINGS: A nasogastric tube projects in the stomach. There are multiple leads overlying the chest. There is no abnormal bowel dilatation. There is a normal quantity of stool. The heart is enlarged. IMPRESSION: Satisfactory position of nasogastric tube. DATA REPOSITORY: RADIATION DOSE DELIVERED:
[2019-09-07 09:52] LABS: BE -0.3 mmol/L (-3-3); HCO3 23 mmol/L (22-28); pCO2 32 mmHg (34-47); pH 7.47 (7.35-7.45); pO2 81 mmHg (83-108); sO2 96 % (94-98); tCO2 21 mmol/L (22-29)
[2019-09-07 09:54] LABS: FIO2 40 %
[2019-09-07] MEDS: Refresh PLUS Eye Drops 0.4ml 1 EACH OU ×3 (10:30→20:05)
[2019-09-07] MEDS: Normal Saline Flush 10 ML SYR IVP (10:31)
[2019-09-07] MEDS: Atorvastatin 40 MG TAB PO (10:32)
[2019-09-07] MEDS: Multivitamin TAB 1 TAB UD (10:32)
[2019-09-07] MEDS: Thiamine 100 MG TAB NG (10:32)
[2019-09-07] MEDS: Aspirin E.C. 81 MG TABEC PO (10:32)
[2019-09-07] MEDS: Cyanocobalamin 500 MCG TAB 1000 MCG NG (10:32)
[2019-09-07] MEDS: Magnesium Oxide 400 MG TAB NG (10:33)
[2019-09-07] MEDS: MAGNESIUM SULFATE 2 GM/50 ML BAG IVPB (10:33)
[2019-09-07] MEDS: Nicotine 21 MG/24 HR PATCH TD (10:33)
[2019-09-07] MEDS: Pantoprazole 40 MG VIAL IVP (10:33)
[2019-09-07] MEDS: Budesonide/Formoterol 160/4.5 6 GM 60 PUFF INH IH ×2 (10:45→20:05)
--- NOTE | 2019-09-07 12:46 | W.NUTCONSULT ---
Date of service: 09/07/19 Time of Service: 12:47 Nutritional Consult ASSESSMENT: 59 year old female admitted to ICU with repiratory failure with aspiration PNA, acute CHF, pleural effusion, now intubated. BMI wnl and typical for patient. Labs indicate low electrolytes, repleted. Meds include MVI, folic acid, thiamin for repletion. NPO status, NG in place, placement confirmation pending. Estimated Needs: [id number] kcal, 60-70 g protein, 2000 ml fluid Recommend enteral feeding/flushes minerva to maintain lean body mass and immune function. NUTRITIONAL DIAGNOSIS: Inadequate oral intake due to intubation secondary to repiratory failure INTERVENTION: enteral feeding via NG tube: Jevity 1.5 @41cc/hour, flush 250 ml q 6 hours providing 1500 kcal, 60 g protein, 2080 ml free fluid. MONITORING AND EVALUATION: will monitor labs, wieght daily Time Spent in Nutritional Counseling and Treatment: 0 time face to face
--- NOTE | 2019-09-07 12:47 | PDOC.CMPRO ---
Care Management Progress Note S/O: Shantel is now intubated at this time, she continues to be closely monitored and treated per protocol for alcohol withdrawal. CM continues to follow. A: 59 year old female admitted to [facility] 09/04/19 for Acute on Chronic Diastolic CHF, Alcohol withdrawal P: Shantel remains in the ICU at this time. She is intubated and being monitored closely for withdrawal and treated per protocol. CM continues to follow and will attempt to connect Shantel to [facility] directly upon discharge as well as [facility]. CM to discuss rehab placement when Shantel is able to engage in discussion fully. Shantel often utilizes RCT upon discharge.
[2019-09-07] MEDS: Lacri-Lube 3.5 GM TUBE OU (13:40)
[2019-09-07] MEDS: Normal Saline 1,000 ML 75 ML IV (13:42)
[2019-09-07] MEDS: Heparin 5,000 UNITS/ML VIAL 5000 UNITS SC ×2 (15:17→23:28)
[2019-09-07] MEDS: MIDAZOLAM 50 MG in Normal Saline 90 ML 5.5 MG IV (15:20)
[2019-09-07 16:51] LABS: Bilirubin Moderate (Negative); Blood Trace-intact (Negative); Clarity Sl Cloudy (Clear); Glucose Negative (Negative); Ketones Trace mg/dL (Negative); Leukocyte Esterase Negative (Negative); Nitrite Negative (Negative); Specific Gravity 1.025 (1.005-1.025); Urobilinogen 0.2 EU/dL (Up TO 0.2); pH 5.5 (5-8)
[2019-09-07 17:03] LABS: Bacteria Few HPF (Negative); C & S Indicated? C&S Done As Ordered; Casts Negative LPF (Negative); Crystals Negative HPF (Negative); Epithelial Cells Few HPF (Negative); Mucus Negative (Negative); Other Cells Negative (Negative)
[2019-09-07] MEDS: Normal Saline 1,000 ML 250 ML IV (22:31)
[2019-09-07] MEDS: ACETAMINOPHEN 1,000 MG/100 ML BTL 40 MG IVPB (23:29)
[2019-09-08] VITALS (146 sets, daily range): BP systolic 54–128; BP diastolic 11–96; PULSE 51–168; RESP 11–36; TEMP 36.2–37.2; O2SAT 86–100
--- NOTE | 2019-09-08 00:39 | NUR.NOTE ---
Nursing Note: Per request of primary RN, this rfp writer attempted to to draw blood off ART line without success. Over the course of the shift this rfp writer noting no correlation and at times no reading of blood pressure. Notified primary RN. [facility]C
[2019-09-08 00:41] LABS: HCT 39.4 % (36.0-46.0)
[2019-09-08] MEDS: Lacri-Lube 3.5 GM TUBE OU ×2 (00:53→14:24)
[2019-09-08] MEDS: PIPERACILLIN/TAZO 3.375 GM in Normal Saline 50 ML IVPB ×2 (00:53→05:33)
--- NOTE | 2019-09-08 01:44 | W.PM.PROGNOT ---
Date of Service Date of service: 09/08/19 Time of Service: 01:44 Assessment and Plan Assessment and plan (1) Hypotension: Status: Acute Assessment and plan: Worsening hypotension, probably multifactorial. Baseline cardiomyopathy, perhaps drug effects (sedatives), perhaps element sepsis emerging, perhaps element relative hypovolemia. No signs cardiac ischemia or bleeding. Will increase IVF cautiously, watching for worsening failure. Will continue abx as is. Will add low dose Levo qtt to maintain MAP 60-65. Subjective Subjective Interval history since last seen: Called for hypotension. Case reviewed. briefly, patient in with EtOH w/d, on vent for airway protection, on Zosyn for asp pneumonia, all on background of CHF. Pressures had been running soft through the day, mostly 80s-90s, occ low 100s. This evening more 70s or 80s. Precedex and Midazolam qtt lowered, bolus 500 cc NS divided doses, with little improvement, and MAP generally <55. On exam patient is vented. BP 73/sys, pulse 100. Lungs clear, heart irr/irr EKG shows AF, low voltage, no change Hct 39 Objective Objective Clinical Data: Abnormal lab results 09/07/19 09/07/19 09/07/19 Range/Units 06:22 06:22 09:50 RBC 3.54 L (4.00-5.20) m/cumm MCV 102.8 H (80-95) fL MCH 35.3 H (27.0-33.0) pg ABG pH 7.47 H (7.35-7.45) ABG pCO2 32 L (34-47) mmHg ABG pO2 81 L (83-108) mmHg ABG Total CO2 21 L (22-29) mmol/L Calcium 7.6 L (8.5-10.1) mg/dL Magnesium 1.6 L (1.8-2.4) mg/dL Urine Protein (Negative) mg/dL Urine Ketones (Negative) mg/dL Urine Blood (Negative) Urine Bilirubin (Negative) Urine RBC (0-2) HPF 09/07/19 Range/Units 15:30 RBC (4.00-5.20) m/cumm MCV (80-95) fL MCH (27.0-33.0) pg ABG pH (7.35-7.45) ABG pCO2 (34-47) mmHg ABG pO2 (83-108) mmHg ABG Total CO2 (22-29) mmol/L Calcium (8.5-10.1) mg/dL Magnesium (1.8-2.4) mg/dL Urine Protein Trace H (Negative) mg/dL Urine Ketones Trace H (Negative) mg/dL Urine Blood Trace-intact H (Negative) Urine Bilirubin Moderate H (Negative) Urine RBC 3-5 H (0-2) HPF Vital Signs Temperature 35.5 C L 09/07/19 19:30 Temperature Source Temporal Artery Scan 09/07/19 19:30 Pulse 105 H 09/08/19 01:00 Pulse 109 H 09/08/19 01:00 Respiratory Rate 13 09/08/19 01:00 Respiratory Effort 09/07/19 19:30 Respiratory Depth Normal 09/07/19 19:30 Respiratory Pattern Tachypnea 09/06/19 20:00 Blood Pressure 80/61 L 09/08/19 01:00 Blood Pressure Mean 65 09/08/19 01:00 Blood Pressure Position Supine 09/07/19 19:30 Pulse Oximetry 97 09/08/19 00:50 Respiratory End-tidal CO2 24 09/08/19 01:00 Oxygen Delivery Method Mechanical Ventilator 09/07/19 19:30 Oxygen Flow Rate 0 09/07/19 19:30 Fraction of Inspired Oxygen (FIO2) 30 09/07/19 19:30 Pain Level 0 09/07/19 17:42 Intake & Output 09/07/19 09/07/19 09/08/19 11:59 23:59 11:59 Intake Total 401.926 / 5834.616 2643.944 / 1843.870 2.227 / 2.227 Output Total 700 / 885 185 / 885 Balance -298.074 / 355.100 1204.944 / 958.870 2.227 / 2.227 Weight 73.3 kg Intake: IV 401.926 / 5792.588 6806.944 / 1622.870 2.227 / 2.227 Right Radial Intake, Tube Feeding Amount 221 / 221 Output: Gastric Drainage 100 / 100 Right Nare 100 / 100 Urine 600 / 725 125 / 725 Output, Residual 60 / 60 Other: Urine Color Dark Bell Light Bell Urine Appearance Clear Comment pt has indweling ramachandran cath ramachandran cath in place, draining light bell urine. Gastric Occult Blood Right Nare Negative Laboratory Results WBC 8.94 k/cumm (4.4-10.8) 09/07/19 06:22 RBC 3.54 m/cumm (4.00-5.20) L 09/07/19 06:22 Hgb 12.5 g/dL (12.0-15.5) 09/07/19 06:22 Hct 39.4 % (36.0-46.0) 09/08/19 00:30 MCV 102.8 fL (80-95) H 09/07/19 06:22 MCH 35.3 pg (27.0-33.0) H 09/07/19 06:22 MCHC 34.3 g/dL (32.0-36.0) 09/07/19 06:22 RDW 13.5 % (11.7-14.6) 09/07/19 06:22 Plt Count 222 x1000/uL (130-400) 09/07/19 06:22 MPV 10.8 fL (8.0-11.0) 09/07/19 06:22 Immature Gran % 0.1 % 09/06/19 05:10 Neutrophils % 74.4 09/06/19 05:10 Lymphocytes % 10.5 09/06/19 05:10 Monocytes % 14.2 09/06/19 05:10 Eosinophils % 0.6 09/06/19 05:10 Basophils % 0.2 09/06/19 05:10 Absolute Neutrophils 6.18 k/cumm (1.2-6.7) 09/06/19 05:10 Absolute Lymphocytes 0.87 k/cumm (1.2-3.4) L 09/06/19 05:10 Absolute Monocytes 1.18 k/cumm (0.11-0.7) H 09/06/19 05:10 Absolute Eosinophils 0.05 k/cumm (0.0-0.7) 09/06/19 05:10 Absolute Basophils 0.02 k/cumm (0.0-0.2) 09/06/19 05:10 PT 12.1 sec (9.3-11.0) H 09/04/19 10:50 INR 1.2 (0.9-1.1) H 09/04/19 10:50 APTT 30.6 sec (21.0-31.4) 09/04/19 10:50 ABG Sample Site 09/07/19 09:50 ABG pH 7.47 (7.35-7.45) H 09/07/19 09:50 ABG pCO2 32 mmHg (34-47) L 09/07/19 09:50 ABG pO2 81 mmHg (83-108) L 09/07/19 09:50 ABG HCO3 23 mmol/L (22-28) 09/07/19 09:50 ABG Total CO2 21 mmol/L (22-29) L 09/07/19 09:50 ABG O2 Saturation 96 % (94-98) 09/07/19 09:50 ABG Base Excess -0.3 mmol/L (-3-3) 09/07/19 09:50 Oxygen Liter Flow 14 360 5 40% L 09/07/19 09:50 FiO2 40 % 09/07/19 09:50 Sodium 138 mmol/L (136-145) 09/07/19 06:22 Potassium 3.8 mmol/L (3.5-5.1) 09/07/19 06:22 Chloride 103 mmol/L (98-107) 09/07/19 06:22 Carbon Dioxide 24.8 mmol/L (21.0-32.0) 09/07/19 06:22 Anion Gap 10.2 mmol/L (3-11) 09/07/19 06:22 BUN 7 mg/dL (7-18) 09/07/19 06:22 Creatinine 0.58 mg/dL (0.55-1.02) 09/07/19 06:22 Estimated GFR/1.73 m2 >= 60.00 (mL/min/1.73m2) 09/07/19 06:22 Glucose 104 mg/dL (74-106) 09/07/19 06:22 Calcium 7.6 mg/dL (8.5-10.1) L 09/07/19 06:22 Magnesium 1.6 mg/dL (1.8-2.4) L 09/07/19 06:22 Total Bilirubin 2.3 mg/dL (0.2-1.0) H 09/05/19 06:10 Conjugated Bilirubin 1.38 mg/dL (0.00-0.20) H 09/05/19 06:10 AST 155 U/L (15-37) H 09/05/19 06:10 ALT 75 U/L (14-59) H 09/05/19 06:10 Alkaline Phosphatase 266 U/L (46-116) H 09/05/19 06:10 Troponin I < 0.05 ng/mL (<0.06) 09/05/19 06:10 NT-Pro-B Natriuret Pep 1248 pg/mL (<300) H 09/04/19 10:50 Total Protein 6.9 g/dL (6.4-8.2) 09/05/19 06:10 Albumin 2.4 g/dL (3.4-5.0) L 09/05/19 06:10 Triglycerides 59 mg/dL (<150) 09/05/19 06:10 Total Cholesterol 71 mg/dL (<200) 09/05/19 06:10 LDL Cholesterol, Calc 35 mg/dL (<100) 09/05/19 06:10 HDL Cholesterol 25 mg/dL (40-60) L 09/05/19 06:10 TSH 5.74 uIU/mL (0.36-3.74) H 09/05/19 06:10 Free T4 1.26 ng/dL (0.76-1.46) 09/05/19 06:10 Urine Color Yellow (Yellow) 09/07/19 15:30 Urine Clarity Sl cloudy (Clear) 09/07/19 15:30 Urine pH 5.5 (5-8) 09/07/19 15:30 Ur Specific [place] 1.025 (1.005-1.025) 09/07/19 15:30 Urine Protein Trace mg/dL (Negative) H 09/07/19 15:30 Urine Ketones Trace mg/dL (Negative) H 09/07/19 15:30 Urine Blood Trace-intact (Negative) H 09/07/19 15:30 Urine Nitrite Negative (Negative) 09/07/19 15:30 Urine Bilirubin Moderate (Negative) H 09/07/19 15:30 Urine Urobilinogen 0.2 EU/dL (Up TO 0.2) 09/07/19 15:30 Ur Leukocyte Esterase Negative (Negative) 09/07/19 15:30 Urine RBC 3-5 HPF (0-2) H 09/07/19 15:30 Urine WBC 3-5 HPF (0-5) 09/07/19 15:30 Ur Epithelial Cells Few HPF (Negative) 09/07/19 15:30 Urine Crystals Negative HPF (Negative) 09/07/19 15:30 Urine Bacteria Few HPF (Negative) 09/07/19 15:30 Urine Casts Negative LPF (Negative) 09/07/19 15:30 Urine Mucus Negative (Negative) 09/07/19 15:30 Urine Other Negative (Negative) 09/07/19 15:30 Ur Culture Indicated? C&s done as ordered 09/07/19 15:30 Urine Glucose Negative mg/dL (Negative) 09/07/19 15:30 COVID-19 PCR Negative (Negative) 09/04/19 10:00 Nasopharyn COVID-19 PCR Not Applicable 09/04/19 10:00 Ref Test [facility] 09/04/19 10:00
[2019-09-08] MEDS: Refresh PLUS Eye Drops 0.4ml 1 EACH OU ×4 (02:14→20:38)
[2019-09-08] MEDS: Normal Saline 1,000 ML 100 ML IV (02:18)
[2019-09-08] MEDS: Heparin 5,000 UNITS/ML VIAL 5000 UNITS SC (05:33)
[2019-09-08] MEDS: MIDAZOLAM 50 MG in Normal Saline 90 ML 7.07 MG IV (05:34)
--- NOTE | 2019-09-08 05:53 | DI.RAD_ITS ---
EXAM: XR PORTABLE CHEST AP POST LINE CLINICAL HISTORY: intubated TECHNIQUE: COMPARISON: CR,XR XR PORTABLE CHEST AP POST LINE from 09/07/2019 FINDINGS: Note is again made of endotracheal tube and NG tube in position. There are probable small pleural ef fusions seen on this frontal supine film. Questionable areas of bibasilar atelectasis or consolidati on, no gross interval change from yesterday's examination. IMPRESSION: Stable appearance of chest from yesterday's examination.
--- NOTE | 2019-09-08 06:47 | DI.VRAD_ITS ---
PROCEDURE INFORMATION: Exam: XR Chest, 1 View Exam date and time: 09/08/2019 5:54 AM Age: 59 years old Clinical indication: Device placement; Ett placement (vent status) TECHNIQUE: Imaging protocol: XR of the chest Views: 1 view. COMPARISON: CR XR PORTABLE CHEST AP POST LINE 09/07/2019 6:44 AM FINDINGS: Tubes, catheters and devices: An endotracheal tube is seen in place with tip 5 cm above the beena. Enteric tube is seen with tip distal portion in the stomach. Lungs: There are stable mild bibasilar consolidations. Pleural space: Stable bilateral small pleural effusions. No pneumothorax. Heart/Mediastinum: Stable cardiomegaly. Bones/joints: Unremarkable. IMPRESSION: Stable small pleural effusions and mild bibasilar consolidations which may be atelectasis. Endotracheal and enteric tubes appear in good position. Dictated and Authenticated by: Lavern Hobbs MD. Ordering:GLO Waller MD
[2019-09-08 07:37] LABS: Abs Immature Grans 0.03 k/cumm (0.0-0.09); Absolute Basophil Count 0.05 k/cumm (0.0-0.2); Absolute Eosinophil Count 0.09 k/cumm (0.0-0.7); Absolute Lymphocyte Count 1.23 k/cumm (1.2-3.4); Absolute Monocyte Count 1.44 k/cumm (0.11-0.7); Basophils % 0.4; Eosinophils % 0.8; HCT 37.7 % (36.0-46.0); HGB 13.6 g/dL (12.0-15.5); Immature Grans % 0.3 %; Lymphocytes % 10.5; Mean Corp. HGB Concentration 36.1 g/dL (32.0-36.0); Mean Corpuscular Hemoglobin 36.4 pg (27.0-33.0); Mean Corpuscular Volume 100.8 fL (80-95); Mean Platelet Volume 10.4 fL (8.0-11.0); Monocytes % 12.3; Neutrophils % 75.7; Platelet Count 271 x1000/uL (130-400); RBC 3.74 m/cumm (4.00-5.20); RBC Distribution Width 13.8 % (11.7-14.6); White Blood Cell Count 11.74 k/cumm (4.4-10.8)
[2019-09-08 07:39] LABS: Absolute Neutrophil Count 8.89 k/cumm (1.2-6.7)
[2019-09-08 07:45] LABS: Anion Gap 8.5 mmol/L (3-11); BUN 12 mg/dL (7-18); CO2 25.5 mmol/L (21.0-32.0); CREATININE 0.99 mg/dL (0.55-1.02); Calcium 7.9 mg/dL (8.5-10.1); Chloride 105 mmol/L (98-107); Estimated GFR 57.02 (mL/min/1.73m2); Glucose 185 mg/dL (74-106); Magnesium 2.1 mg/dL (1.8-2.4); Potassium 3.2 mmol/L (3.5-5.1); Sodium 139 mmol/L (136-145)
[2019-09-08 08:17] LABS: HCO3 24 mmol/L (22-28); pCO2 30 mmHg (34-47); pH 7.51 (7.35-7.45); pO2 82 mmHg (83-108); sO2 97 % (94-98); tCO2 21 mmol/L (22-29)
[2019-09-08 08:20] LABS: FIO2 30 %; Site Left Radial
[2019-09-08] MEDS: Budesonide/Formoterol 160/4.5 6 GM 60 PUFF INH IH ×2 (08:34→20:38)
--- NOTE | 2019-09-08 09:02 | PDOC.CMPRO ---
- If Service Date Differs Date of service: 09/08/19 Time of Service: 09:04 Care Management Progress Note S/O: Per report, Shantel remains intubated today at ICU level of care. She had an episode of worsening hypotension last night, probably multifactorial. She continues to be closely monitored and treated per protocol for alcohol withdrawal. CM will continue to follow. A: 59 year old female admitted to [facility] 09/04/19 for Acute on Chronic Diastolic CHF, Alcohol withdrawal P: Shantel remains in the ICU at this time. She is intubated and being monitored closely for withdrawal and treated per protocol. CM continues to follow and will attempt to connect Shantel to [facility] directly upon discharge as well as [facility]. CM to discuss rehab placement when Shantel is able to engage in discussion fully. Shantel often utilizes RCT upon discharge.
--- NOTE | 2019-09-08 09:19 | PGE_ITS ---
Date of Service Date of service: 09/08/19 Time of Service: 09:19 Assessment and Plan Assessment and plan (1) Hypotension: Status: Acute Assessment and plan: I suspect is multifactorial including overdiuresis as well as sedative medications however the possibility of a sepsis or acute ischemic event has not been ruled out. We will continue with IV fluid hydration and lighten her sedation. Will check troponin level and EKG as well as procalcitonin and lactate level. Continue current antibiotic treatment for aspiration pneumonia and E. coli UTI. Qualifiers: Hypotension type: unspecified hypotension type Qualified Code(s): I95.9 - Hypotension, unspecified (2) Alcohol withdrawal delirium, acute, hyperactive: Status: Acute Assessment and plan: Intubated and sedated with Versed and Precedex. Pressures are on the low side and we are continue to wean her sedatives. Goal is for her RASS scale of 0 to -1. (3) Respiratory failure: Status: Acute Assessment and plan: Patient was intubated primarily for airway protection while she was being heavily sedated for her acute alcohol withdrawal. However there is been concern of possible aspiration pneumonia. Chest x-ray does demonstrate small bilateral pleural effusions and right lower lobe atelectasis versus infiltrate. She is currently on Zosyn at 3.375 g IV every 6 hours day #3. This is being used to treat both pneumonia as well as an E. coli UTI. Given that she had probable aspiration I have increased her Zosyn dose to 4.5 g IV every 8 hours at a slow infusion. She seems to be oxygenating and ventilating quite well on the current ASV settings. We will continue sedation weaning and daily sedation vacation to assess her responsiveness as well as monitoring readiness for weaning. However in light of her ongoing pneumonia and heavy sedation I do not feel that she is ready for extubation. (4) Aspiration pneumonia: Status: Acute Assessment and plan: Intuabted for airway protection. Continue zosyn (day 4). Increase dosage to 4.5 g IV every 8 hours. (5) Acute on chronic diastolic CHF (congestive heart failure), NYHA class 1: Status: Acute Assessment and plan: Weight is 72.8 kg today. This is about a 4 kg decrease over her admission weight although over the course of her hospitalization her weight is varied to as low as 66.3 kg and his height is 76.2 kg. Is felt that her weights have been unreliable. Her cumulative fluid balance appears to be about even. Although she has some edema in her hands and her feet I do not feel that she is volume overload at this point. Given her hypotension overnight I think she needs continued IV fluids for now. We will monitor her weight and I's and O's as well as proBNP and renal function. (6) Bilateral pleural effusion: Status: Resolved Assessment and plan: As above (7) E. coli UTI: Status: Acute Assessment and plan: with mixed gram positives. Presently on zosyn day 3. Obtain repeat urine C&S. (8) Atrial fibrillation: Status: Chronic Assessment and plan: A. fib rate continues to be a problem with heart rates in the 120s. Blood pressure is too low to tolerate any IV diltiazem or Lopressor. (9) Alcohol dependence: Status: Chronic Assessment and plan: As above (10) Hypokalemia: Status: Resolved Assessment and plan: Potassium remains low at 3.2. Change her maintenance IV fluids to normal saline with 40 mEq potassium. In light of her hypotension her IV fluid rate was increased to 150 mL an hour. We will recheck her potassium this afternoon. (11) Hypomagnesemia: Status: Acute Assessment and plan: Repleted (12) Subclinical hypothyroidism: Status: Chronic Assessment and plan: Follow up as outpatient. (13) Falls: Status: Acute Assessment and plan: intubated and sedated at this time. Resume PT once off the vent. (14) Lip laceration: Status: Acute Assessment and plan: Facial CT neg. Looks better today. (15) DVT prophylaxis: Status: Acute Assessment and plan: DC heparin and switch to Lovenox due to more predictable anticoagulation and less risk of thrombocytopenia Continue TEDs/SCDs (16) Discharge planning issues: Status: Acute Assessment and plan: Full code Continues to require ICU. Total Critical Care Time 60 minutes. Subjective Subjective Interval history since last seen: Patient with prolonged episode of hypotension last night with systolic pressures in the 70s and a map in the mid 50s to low 60s. Patient's IV fluids were restarted yesterday and she required norepinephrine last night to sustain her map into the high 60s to 70 range. She remains on norepinephrine drip at 0.05 mcg per kilogram per minute and sedated on a Precedex and Versed drip. Respirations are nonlabored in the mid teens pulse oximetry is 99% on FiO2 of 28% on ASV ventilation mode with her minute ventilation currently 6.5 to 7 L/min and a peak airway pressure of 19 cm. Chest x-ray continues to show right lower lobe infiltrate. She is afebrile with a white cell count of 11,000. Potassium level is low at 3.2 which is currently being replaced with IV supplementation. Per respiratory therapy they have had scant clear mucus when they suction her. Urine cultures positive for pansensitive E. coli for which she is currently on Zosyn. Exam Narrative Exam Narrative: Heavily sedated but arousable to noxious stimuli will open her eyes but not follow commands. Lungs with coarse bilateral rhonchi. Heart is regular but slightly tachycardic no appreciable murmur rub. Abdomen is nondistended diminished bowel sounds no palpable masses and no bruits. Extremities with 1+ pitting edema of her hands and her feet. Neurologic exam she withdraws all 4 extremities to noxious stimuli and grimaces but not following commands while heavily sedated (Versed was at 50 mcg/kg/h and Precedex was 0.4 mcg/kg/h when he first examined her). Objective Objective Clinical Data: Abnormal lab results 09/07/19 09/07/19 09/08/19 Range/Units 09:50 15:30 07:00 WBC (4.4-10.8) k/cumm RBC (4.00-5.20) m/cumm MCV (80-95) fL MCH (27.0-33.0) pg MCHC (32.0-36.0) g/dL Absolute Neutrophils (1.2-6.7) k/cumm Absolute Monocytes (0.11-0.7) k/cumm ABG pH 7.47 H (7.35-7.45) ABG pCO2 32 L (34-47) mmHg ABG pO2 81 L (83-108) mmHg ABG Total CO2 21 L (22-29) mmol/L Potassium 3.2 L (3.5-5.1) mmol/L Glucose 185 H D (74-106) mg/dL Calcium 7.9 L (8.5-10.1) mg/dL Urine Protein Trace H (Negative) mg/dL Urine Ketones Trace H (Negative) mg/dL Urine Blood Trace-intact H (Negative) Urine Bilirubin Moderate H (Negative) Urine RBC 3-5 H (0-2) HPF 09/08/19 09/08/19 Range/Units 07:00 08:14 WBC 11.74 H D (4.4-10.8) k/cumm RBC 3.74 L (4.00-5.20) m/cumm MCV 100.8 H (80-95) fL MCH 36.4 H (27.0-33.0) pg MCHC 36.1 H (32.0-36.0) g/dL Absolute Neutrophils 8.89 H (1.2-6.7) k/cumm Absolute Monocytes 1.44 H (0.11-0.7) k/cumm ABG pH 7.51 H (7.35-7.45) ABG pCO2 30 L (34-47) mmHg ABG pO2 82 L (83-108) mmHg ABG Total CO2 21 L (22-29) mmol/L Potassium (3.5-5.1) mmol/L Glucose (74-106) mg/dL Calcium (8.5-10.1) mg/dL Urine Protein (Negative) mg/dL Urine Ketones (Negative) mg/dL Urine Blood (Negative) Urine Bilirubin (Negative) Urine RBC (0-2) HPF Vital Signs Temperature 37.2 C 09/08/19 00:00 Temperature Source Temporal Artery Scan 09/08/19 00:00 Pulse 77 09/08/19 07:00 Pulse 112 H 09/08/19 07:01 Respiratory Rate 19 09/08/19 07:01 Respiratory Effort 09/08/19 04:00 Respiratory Depth Normal 09/08/19 04:00 Respiratory Pattern Tachypnea 09/06/19 20:00 Blood Pressure 89/67 L 09/08/19 07:00 Blood Pressure Mean 72 09/08/19 07:00 Blood Pressure Position Supine 09/08/19 00:00 Pulse Oximetry 100 09/08/19 07:01 Respiratory End-tidal CO2 25 09/08/19 07:01 Oxygen Delivery Method Mechanical Ventilator 09/08/19 00:00 Oxygen Flow Rate 0 09/08/19 00:00 Fraction of Inspired Oxygen (FIO2) 30 09/08/19 04:50 Pain Level 0 09/07/19 17:42 Intake & Output 09/07/19 09/07/19 09/08/19 11:59 23:59 11:59 Intake Total 401.926 / 5558.167 3387.944 / 2787.873 2883.094 / 1943.094 Output Total 700 / 885 185 / 885 410 / 410 Balance -298.074 / 9444.398 1634.944 / 6077.683 0617.094 / 1533.094 Weight 73.3 kg 72.8 kg Intake: IV 401.926 / 3169.223 2600.944 / 5631.414 4430.094 / 1718.094 Right Radial Intake, Tube Feeding Amount 221 / 221 225 / 225 Output: Gastric Drainage 100 / 100 Right Nare 100 / 100 Urine 600 / 725 125 / 725 200 / 200 Output, Residual 60 / 60 210 / 210 Other: Urine Color Dark Bell Light Bell Dark Bell Urine Appearance Clear Clear Comment pt has indweling ramachandran cath ramachandran cath in place, draining light bell urine. ramachandran patent, draining small amounts of bell urine Gastric Occult Blood Right Nare Negative Laboratory Results WBC 11.74 k/cumm (4.4-10.8) H D 09/08/19 07:00 RBC 3.74 m/cumm (4.00-5.20) L 09/08/19 07:00 Hgb 13.6 g/dL (12.0-15.5) 09/08/19 07:00 Hct 37.7 % (36.0-46.0) 09/08/19 07:00 MCV 100.8 fL (80-95) H 09/08/19 07:00 MCH 36.4 pg (27.0-33.0) H 09/08/19 07:00 MCHC 36.1 g/dL (32.0-36.0) H 09/08/19 07:00 RDW 13.8 % (11.7-14.6) 09/08/19 07:00 Plt Count 271 x1000/uL (130-400) 09/08/19 07:00 MPV 10.4 fL (8.0-11.0) 09/08/19 07:00 Immature Gran % 0.3 % 09/08/19 07:00 Neutrophils % 75.7 09/08/19 07:00 Lymphocytes % 10.5 09/08/19 07:00 Monocytes % 12.3 09/08/19 07:00 Eosinophils % 0.8 09/08/19 07:00 Basophils % 0.4 09/08/19 07:00 Absolute Neutrophils 8.89 k/cumm (1.2-6.7) H 09/08/19 07:00 Absolute Lymphocytes 1.23 k/cumm (1.2-3.4) 09/08/19 07:00 Absolute Monocytes 1.44 k/cumm (0.11-0.7) H 09/08/19 07:00 Absolute Eosinophils 0.09 k/cumm (0.0-0.7) 09/08/19 07:00 Absolute Basophils 0.05 k/cumm (0.0-0.2) 09/08/19 07:00 PT 12.1 sec (9.3-11.0) H 09/04/19 10:50 INR 1.2 (0.9-1.1) H 09/04/19 10:50 APTT 30.6 sec (21.0-31.4) 09/04/19 10:50 ABG Sample Site Left radial 09/08/19 08:14 ABG pH 7.51 (7.35-7.45) H 09/08/19 08:14 ABG pCO2 30 mmHg (34-47) L 09/08/19 08:14 ABG pO2 82 mmHg (83-108) L 09/08/19 08:14 ABG HCO3 24 mmol/L (22-28) 09/08/19 08:14 ABG Total CO2 21 mmol/L (22-29) L 09/08/19 08:14 ABG O2 Saturation 97 % (94-98) 09/08/19 08:14 ABG Base Excess 1.0 mmol/L (-3-3) 09/08/19 08:14 Oxygen Liter Flow 14 360 5 40% L 09/07/19 09:50 FiO2 30 % 09/08/19 08:14 Sodium 139 mmol/L (136-145) 09/08/19 07:00 Potassium 3.2 mmol/L (3.5-5.1) L 09/08/19 07:00 Chloride 105 mmol/L (98-107) 09/08/19 07:00 Carbon Dioxide 25.5 mmol/L (21.0-32.0) 09/08/19 07:00 Anion Gap 8.5 mmol/L (3-11) 09/08/19 07:00 BUN 12 mg/dL (7-18) 09/08/19 07:00 Creatinine 0.99 mg/dL (0.55-1.02) 09/08/19 07:00 Estimated GFR/1.73 m2 57.02 (mL/min/1.73m2) 09/08/19 07:00 Glucose 185 mg/dL (74-106) H D 09/08/19 07:00 Calcium 7.9 mg/dL (8.5-10.1) L 09/08/19 07:00 Magnesium 2.1 mg/dL (1.8-2.4) 09/08/19 07:00 Total Bilirubin 2.3 mg/dL (0.2-1.0) H 09/05/19 06:10 Conjugated Bilirubin 1.38 mg/dL (0.00-0.20) H 09/05/19 06:10 AST 155 U/L (15-37) H 09/05/19 06:10 ALT 75 U/L (14-59) H 09/05/19 06:10 Alkaline Phosphatase 266 U/L (46-116) H 09/05/19 06:10 Troponin I < 0.05 ng/mL (<0.06) 09/05/19 06:10 NT-Pro-B Natriuret Pep 1248 pg/mL (<300) H 09/04/19 10:50 Total Protein 6.9 g/dL (6.4-8.2) 09/05/19 06:10 Albumin 2.4 g/dL (3.4-5.0) L 09/05/19 06:10 Triglycerides 59 mg/dL (<150) 09/05/19 06:10 Total Cholesterol 71 mg/dL (<200) 09/05/19 06:10 LDL Cholesterol, Calc 35 mg/dL (<100) 09/05/19 06:10 HDL Cholesterol 25 mg/dL (40-60) L 09/05/19 06:10 TSH 5.74 uIU/mL (0.36-3.74) H 09/05/19 06:10 Free T4 1.26 ng/dL (0.76-1.46) 09/05/19 06:10 Urine Color Yellow (Yellow) 09/07/19 15:30 Urine Clarity Sl cloudy (Clear) 09/07/19 15:30 Urine pH 5.5 (5-8) 09/07/19 15:30 Ur Specific [place] 1.025 (1.005-1.025) 09/07/19 15:30 Urine Protein Trace mg/dL (Negative) H 09/07/19 15:30 Urine Ketones Trace mg/dL (Negative) H 09/07/19 15:30 Urine Blood Trace-intact (Negative) H 09/07/19 15:30 Urine Nitrite Negative (Negative) 09/07/19 15:30 Urine Bilirubin Moderate (Negative) H 09/07/19 15:30 Urine Urobilinogen 0.2 EU/dL (Up TO 0.2) 09/07/19 15:30 Ur Leukocyte Esterase Negative (Negative) 09/07/19 15:30 Urine RBC 3-5 HPF (0-2) H 09/07/19 15:30 Urine WBC 3-5 HPF (0-5) 09/07/19 15:30 Ur Epithelial Cells Few HPF (Negative) 09/07/19 15:30 Urine Crystals Negative HPF (Negative) 09/07/19 15:30 Urine Bacteria Few HPF (Negative) 09/07/19 15:30 Urine Casts Negative LPF (Negative) 09/07/19 15:30 Urine Mucus Negative (Negative) 09/07/19 15:30 Urine Other Negative (Negative) 09/07/19 15:30 Ur Culture Indicated? C&s done as ordered 09/07/19 15:30 Urine Glucose Negative mg/dL (Negative) 09/07/19 15:30 COVID-19 PCR Negative (Negative) 09/04/19 10:00 Nasopharyn COVID-19 PCR Not Applicable 09/04/19 10:00 Ref Test Perform Site [facility] 09/04/19 10:00
[2019-09-08] MEDS: Pantoprazole 40 MG VIAL IVP (09:44)
[2019-09-08] MEDS: ACETAMINOPHEN 1,000 MG/100 ML BTL 400 MG IVPB ×2 (09:44→17:59)
[2019-09-08] MEDS: Cyanocobalamin 500 MCG TAB 1000 MCG NG (09:45)
[2019-09-08] MEDS: Folic Acid 1 MG TAB NG (09:45)
[2019-09-08] MEDS: Nicotine 21 MG/24 HR PATCH TD (09:45)
[2019-09-08] MEDS: Thiamine 100 MG TAB NG (09:45)
--- NOTE | 2019-09-08 09:45 | RT.EKG_ITS ---
APPROVED REPORT Exam: Resting ECG Patient Location: I HR:101 bpm ECG Measurements Heart Rate 101 AXIS IA [id number] P [id number] QRSd 91 QRS 42 QT 322 T -61 QTc 418 <Conclusion> Age and gender not entered, assume 48 yo male for purpose of ECG interpretation Atrial fibrillation...V-rate 82-115, irreg A-activity Low voltage, extremity and precordial leads...extremity<0.5mV, precordial<1.0mV Consider anteroseptal infarct...Q >30mS, dimin R, V1-V2 I have reviewed and interpreted ECG and agree with software generated interpretation. I have reviewed and I agree with the emergency room physician???s ECG interpretation.
[2019-09-08] MEDS: Magnesium Oxide 400 MG TAB NG (09:46)
[2019-09-08] MEDS: Normal Saline Flush 10 ML SYR IVP ×2 (09:46→19:26)
[2019-09-08] MEDS: POTASSIUM CHLORIDE/0.9% NACL 1,000 ML 150 MEQ IV ×2 (10:29→16:52)
[2019-09-08] MEDS: Multivitamin TAB 1 TAB UD (11:05)
[2019-09-08] MEDS: Aspirin 81 MG CHEW UD (11:05)
[2019-09-08] MEDS: Atorvastatin 40 MG TAB NG (11:05)
--- NOTE | 2019-09-08 11:30 | RT.EKG_ITS ---
APPROVED REPORT Exam: Resting ECG Patient Location: I HR:121 bpm ECG Measurements Heart Rate 121 AXIS MT [id number] P [id number] QRSd 82 QRS 48 QT 307 T -59 QTc 437 <Conclusion> Atrial fibrillation...V-rate 106-167, irreg A-activity Probable anterior infarct, age indeterminate...Q >35mS, T neg, V2-V5 I have reviewed and interpreted ECG and agree with software generated interpretation. I have reviewed and I agree with the emergency room physician???s ECG interpretation.
[2019-09-08 11:49] LABS: Troponin I < 0.05 ng/mL (<0.06)
[2019-09-08 11:53] LABS: NT-proBNP 1198 pg/mL (<300)
[2019-09-08 12:10] LABS: Lactate 2.8 mmol/L (0.6-1.4)
[2019-09-08] MEDS: Digoxin 0.5 MG/2 ML AMP 0.25 MG IVP ×2 (12:15→18:54)
[2019-09-08 12:47] LABS: Procalcitonin 0.4 ng/mL
[2019-09-08] MEDS: MIDAZOLAM 50 MG in Normal Saline 90 ML IV (15:37)
[2019-09-08] MEDS: PIPERACILLIN/TAZO 4.5 GM in Normal Saline 100 ML IVPB ×2 (15:37→22:09)
[2019-09-08 16:43] LABS: Troponin I < 0.05 ng/mL (<0.06)
--- NOTE | 2019-09-08 19:32 | NUR.NOTE ---
Nursing Note: Pt has had a challenging today for sedation, vitals control, and airway management. Pt has intermittently throughout the day became stressed for what would seem no reason. She would start panting with a RR of 30-40 a min increased HR of 120s-130s and exhaled tidal volume would drop to 200 and less. all different methods of sedation level tried with the versed and precedex. Provider requested that Pt be kept lightly sedated at RASS score 0 to -1. This was quite challenging with the difficulty of weaning down and the stress response. AT end of shift Pt is currently at the max on the precedex and at 45mcg/kg/min on the versed. Pt's BP also fluctuated significantly from very soft with poor Maps, to soft with OK Maps, to WNL and soft to ok maps. Pt also didn't tolerate changing position well,and when position was changed became stressed. Currently has a small, superficial open area on coccyx area. Mepilex applied today for protection. Pillows used under hips later in day. During bath with wipes several things of note were found. Pt's breasts are found to feel very firm and and odd in places almost like the feeling of mastitis without the heat, lumps of some kind? The ribs under the breast area feel malformed and protruding slightly currently, unsure if this is from her history of falls and healing or something different. RN found multiple small, oozing, pustules on the pubic area, unsure if they are where Pt has shaved before and they are infected ingrown hairs or something else. Nursing will continue to monitor all issues and report to provider as needed.
[2019-09-08] MEDS: Enoxaparin 40 MG/0.4 ML SYR SC (20:39)
[2019-09-09] VITALS (103 sets, daily range): BP systolic 72–107; BP diastolic 51–86; PULSE 57–115; RESP 8–33; TEMP 36–36.6; O2SAT 92–100
[2019-09-09] MEDS: ACETAMINOPHEN 1,000 MG/100 ML BTL 400 MG IVPB ×4 (00:25→23:31)
[2019-09-09] MEDS: Lacri-Lube 3.5 GM TUBE OU ×3 (00:25→23:35)
[2019-09-09] MEDS: Digoxin 0.5 MG/2 ML AMP 0.25 MG IVP (00:26)
[2019-09-09] MEDS: Refresh PLUS Eye Drops 0.4ml 1 EACH OU ×4 (02:04→19:49)
[2019-09-09] MEDS: MIDAZOLAM 50 MG in Normal Saline 90 ML 6.363 MG IV (06:16)
[2019-09-09] MEDS: PIPERACILLIN/TAZO 4.5 GM in Normal Saline 100 ML IVPB ×3 (06:51→22:19)
[2019-09-09] MEDS: Budesonide/Formoterol 160/4.5 6 GM 60 PUFF INH IH ×2 (07:18→20:21)
[2019-09-09 07:21] LABS: Abs Immature Grans 0.02 k/cumm (0.0-0.09); Absolute Basophil Count 0.05 k/cumm (0.0-0.2); Absolute Lymphocyte Count 0.92 k/cumm (1.2-3.4); Absolute Monocyte Count 0.93 k/cumm (0.11-0.7); Basophils % 0.6; Eosinophils % 1.2; HCT 37.8 % (36.0-46.0); Immature Grans % 0.2 %; Lymphocytes % 11.2; Mean Corp. HGB Concentration 34.4 g/dL (32.0-36.0); Mean Corpuscular Hemoglobin 35.6 pg (27.0-33.0); Mean Corpuscular Volume 103.6 fL (80-95); Mean Platelet Volume 10.2 fL (8.0-11.0); Monocytes % 11.4; Neutrophils % 75.4; Platelet Count 224 x1000/uL (130-400); RBC 3.65 m/cumm (4.00-5.20); RBC Distribution Width 14.1 % (11.7-14.6); White Blood Cell Count 8.18 k/cumm (4.4-10.8)
[2019-09-09 07:24] LABS: Absolute Neutrophil Count 6.17 k/cumm (1.2-6.7)
[2019-09-09 07:31] LABS: ALT 50 U/L (14-59); AST 64 U/L (15-37); Albumin 1.8 g/dL (3.4-5.0); Alkaline Phosphatase 155 U/L (46-116); BUN 9 mg/dL (7-18); Bilirubin, Total 0.9 mg/dL (0.2-1.0); CREATININE 0.69 mg/dL (0.55-1.02); Calcium 7.9 mg/dL (8.5-10.1); Chloride 111 mmol/L (98-107); Glucose 147 mg/dL (74-106); Potassium 3.9 mmol/L (3.5-5.1); Sodium 144 mmol/L (136-145)
[2019-09-09 07:34] LABS: BE 1.2 mmol/L (-3-3); HCO3 24 mmol/L (22-28); pCO2 31 mmHg (34-47); pO2 60 mmHg (83-108); sO2 92 % (94-98); tCO2 22 mmol/L (22-29)
[2019-09-09 07:36] LABS: FIO2 24 %; Site Right Radial
--- NOTE | 2019-09-09 08:20 | PDOC.CMPRO ---
- If Service Date Differs Date of service: 09/09/19 Time of Service: 08:20 Care Management Progress Note S/O: Shantel remains intubated today at ICU level of care. A weaning trial was conducted, but the decision was made not to extubate her until tomorrow due to increased work of breathing. A central line was placed by Dr. Segundo. She continues to be closely monitored and treated per protocol for alcohol withdrawal. CM will continue to follow. A: 59 year old female admitted to [facility] 09/04/19 for Acute on Chronic Diastolic CHF, Alcohol withdrawal P: Shantel remains in the ICU at this time. She is intubated and being monitored closely for withdrawal and treated per protocol. CM continues to follow and will attempt to connect Shantel to [facility] directly upon discharge as well as [facility]. CM to discuss rehab placement when Shantel is able to engage in discussion fully. Shantel often utilizes [facility] upon discharge.
--- NOTE | 2019-09-09 08:30 | DI.RAD_ITS ---
EXAM: XR PORTABLE CHEST AP CLINICAL HISTORY: Respiratory failure TECHNIQUE: COMPARISON: CR,XR XR PORTABLE CHEST AP POST LINE from 09/08/2019 FINDINGS: Note is again made ET tube and NG tube in place. Heart is mildly enlarged. Radiodensities overlying the lung bases may represent pleural effusions. No gross interval change in appearance from recent radiographs. Basilar consolidation not excluded basis of this examination, chest CT may be obtained if clinically indicated. IMPRESSION:
--- NOTE | 2019-09-09 09:00 | W.PM.PROGNOT ---
Date of Service Date of service: 09/09/19 Time of Service: 09:00 Assessment and Plan Assessment and plan (1) Respiratory failure: Status: Acute Assessment and plan: primary process was originally due to heavy sedation for treatment of acute alcohol withdrawal however it was felt that she had an aspiration event. Chest x-ray yesterday showed right lower lobe infiltrate as well as small pleural effusions. (2) Aspiration pneumonia: Status: Acute Assessment and plan: Intuabted for airway protection. Continue zosyn (day 5). We will treat for 7 days and monitor her response. Minimal thin secretions that are clear to white. Sputum was sent yesterday and Gram stain showed no bacteria with rare white cells. Cultures pending at this time. (3) Difficult intravenous access: Status: Acute Assessment and plan: Poor peripheral IV access. Access in her right arm is adequate but is sustaining all of her IV meds except for her Zosyn which she has been given slowly through her left arm. Nursing is concerned that the left arm peripheral IV can no longer be maintained. A consult with Dr. Mendez to place a triple-lumen CVP. (4) Alcohol withdrawal delirium, acute, hyperactive: Status: Acute Assessment and plan: Intubated and sedated with Versed and Precedex. continue light sedation with RASS score of 0 to -1; daily sedation vacation to assess her alertness (5) Hypotension: Status: Resolved Assessment and plan: Patient was weaned off the norepinephrine drip last night. MAPS have been in the high 60s and low 70s. Suspected that she had a combination of hypotension secondary to high-dose sedatives along with volume depletion and early sepsis as evidenced by an elevated blood lactate level and a mildly elevated procalcitonin level. She remains on Zosyn for coverage of aspiration pneumonia as well as E. coli UTI. Qualifiers: Hypotension type: unspecified hypotension type Qualified Code(s): I95.9 - Hypotension, unspecified (6) Acute on chronic diastolic CHF (congestive heart failure), NYHA class 1: Status: Acute Assessment and plan: proBNP was elevated at 1100 yesterday however this is been her baseline for the last month. Clinically yesterday she appeared to be dry and therefore was given IV fluids. Overnight nursing was concerned that she may be getting too much volume. Respite Care Provider last night cut her maintenance IV fluids down. Total IV fluids including her Precedex and her Versed drip is about 95 mL/h which should be adequate to keep her hydrated.. (7) Bilateral pleural effusion: Status: Resolved Assessment and plan: As above (8) E. coli UTI: Status: Acute Assessment and plan: with mixed gram positives. Presently on zosyn day 5 Obtain repeat urine C&S. (9) Atrial fibrillation: Status: Chronic Assessment and plan: A. fib rate is under better control since she has been digitalized. Blood pressures were intolerant of any IV beta-blockers or diltiazem. She is on Lovenox but at a DVT prophylactic level 40 mg subcutaneous nightly. As an outpatient she is not on chronic anticoagulation because of her alcoholism and poor medical compliance. (10) Alcohol dependence: Status: Chronic Assessment and plan: As above (11) Hypokalemia: Status: Resolved Assessment and plan: Resolved after supplementation. Continue to monitor. (12) Hypomagnesemia: Status: Acute Assessment and plan: Repleted (13) Subclinical hypothyroidism: Status: Chronic Assessment and plan: Follow up as outpatient. (14) Falls: Status: Acute Assessment and plan: intubated and sedated at this time. Resume PT once off the vent. (15) Lip laceration: Status: Acute Assessment and plan: Facial CT neg. Looks better today. (16) DVT prophylaxis: Status: Acute Assessment and plan: DC heparin and switch to Lovenox due to more predictable anticoagulation and less risk of thrombocytopenia Continue TEDs/SCDs (17) Discharge planning issues: Status: Acute Assessment and plan: Full code Continues to require ICU. Total Critical Care Time 60 minutes. Exam Narrative Exam Narrative: Heavily sedated but arousable to noxious stimuli will open her eyes but not follow commands. Lungs with coarse bilateral rhonchi. Heart is irregular but rate is better controlled Abdomen is nondistended diminished bowel sounds no palpable masses and no bruits. Extremities with 1+ pitting edema of her hands and her feet. Neurologic exam she withdraws all 4 extremities to noxious stimuli and grimaces but not following commands while heavily sedated Objective Objective Clinical Data: Abnormal lab results 09/08/19 09/08/19 09/09/19 Range/Units 07:00 11:52 06:45 RBC (4.00-5.20) m/cumm MCV (80-95) fL MCH (27.0-33.0) pg Absolute Lymphocytes (1.2-3.4) k/cumm Absolute Monocytes (0.11-0.7) k/cumm ABG pH (7.35-7.45) ABG pCO2 (34-47) mmHg ABG pO2 (83-108) mmHg ABG O2 Saturation (94-98) % Chloride 111 H (98-107) mmol/L Glucose 147 H (74-106) mg/dL Lactate 2.8 H* (0.6-1.4) mmol/L Calcium 7.9 L (8.5-10.1) mg/dL AST 64 H (15-37) U/L Alkaline Phosphatase 155 H (46-116) U/L NT-Pro-B Natriuret Pep 1198 H (<300) pg/mL Total Protein 6.0 L (6.4-8.2) g/dL Albumin 1.8 L (3.4-5.0) g/dL 09/09/19 09/09/19 09/09/19 Range/Units 06:45 06:45 07:29 RBC 3.65 L (4.00-5.20) m/cumm MCV 103.6 H (80-95) fL MCH 35.6 H (27.0-33.0) pg Absolute Lymphocytes 0.92 L (1.2-3.4) k/cumm Absolute Monocytes 0.93 H (0.11-0.7) k/cumm ABG pH 7.50 H (7.35-7.45) ABG pCO2 31 L (34-47) mmHg ABG pO2 60 L (83-108) mmHg ABG O2 Saturation 92 L (94-98) % Chloride (98-107) mmol/L Glucose (74-106) mg/dL Lactate 2.0 H (0.6-1.4) mmol/L Calcium (8.5-10.1) mg/dL AST (15-37) U/L Alkaline Phosphatase (46-116) U/L NT-Pro-B Natriuret Pep (<300) pg/mL Total Protein (6.4-8.2) g/dL Albumin (3.4-5.0) g/dL Vital Signs Temperature 36.4 C L 09/09/19 04:00 Temperature Source Temporal Artery Scan 09/09/19 04:00 Pulse 88 09/09/19 07:45 Pulse 103 H 09/09/19 06:45 Respiratory Rate 12 09/09/19 08:31 Respiratory Effort 09/09/19 07:45 Respiratory Depth Normal 09/09/19 04:00 Respiratory Pattern Tachypnea 09/08/19 16:30 Blood Pressure 84/61 L 09/09/19 06:45 Blood Pressure Mean 67 09/09/19 06:45 Blood Pressure Position Right Lateral 09/09/19 04:00 Pulse Oximetry 95 09/09/19 08:31 Respiratory End-tidal CO2 24 09/09/19 08:31 Oxygen Delivery Method Mechanical Ventilator 09/09/19 04:00 Oxygen Flow Rate 0 09/09/19 04:00 Fraction of Inspired Oxygen (FIO2) 24 09/09/19 08:31 Pain Level 0 09/07/19 17:42 Intake & Output 09/08/19 09/08/19 09/09/19 11:59 23:59 11:59 Intake Total 2325.983 / 5381.636 2860.653 / 5381.636 889.826 / 889.826 Output Total 410 / 675 265 / 675 430 / 430 Balance 1915.983 / 4706.636 2595.653 / 4706.636 459.826 / 459.826 Weight 72.8 kg 75.5 kg Intake: IV 2100.983 / 3984.636 1883.653 / 3984.636 407.826 / 407.826 Intake, Tube Feeding Amount 225 / 1397 977 / 1397 482 / 482 Output: Urine 200 / 400 200 / 400 350 / 350 Output, Residual 210 / 275 65 / 275 80 / 80 Other: Urine Color Dark Bell Light Bell Light Bell Urine Appearance Clear Clear Clear Comment sedated and intubated, no noticeable symptoms cleaned area around catheter at this time. ramachandran cath in place draining bell urine Gastric Occult Blood Right Nare Negative Laboratory Results WBC 8.18 k/cumm (4.4-10.8) D 09/09/19 06:45 RBC 3.65 m/cumm (4.00-5.20) L 09/09/19 06:45 Hgb 13.0 g/dL (12.0-15.5) 09/09/19 06:45 Hct 37.8 % (36.0-46.0) 09/09/19 06:45 MCV 103.6 fL (80-95) H 09/09/19 06:45 MCH 35.6 pg (27.0-33.0) H 09/09/19 06:45 MCHC 34.4 g/dL (32.0-36.0) 09/09/19 06:45 RDW 14.1 % (11.7-14.6) 09/09/19 06:45 Plt Count 224 x1000/uL (130-400) 09/09/19 06:45 MPV 10.2 fL (8.0-11.0) 09/09/19 06:45 Immature Gran % 0.2 % 09/09/19 06:45 Neutrophils % 75.4 09/09/19 06:45 Lymphocytes % 11.2 09/09/19 06:45 Monocytes % 11.4 09/09/19 06:45 Eosinophils % 1.2 09/09/19 06:45 Basophils % 0.6 09/09/19 06:45 Absolute Neutrophils 6.17 k/cumm (1.2-6.7) 09/09/19 06:45 Absolute Lymphocytes 0.92 k/cumm (1.2-3.4) L 09/09/19 06:45 Absolute Monocytes 0.93 k/cumm (0.11-0.7) H 09/09/19 06:45 Absolute Eosinophils 0.10 k/cumm (0.0-0.7) 09/09/19 06:45 Absolute Basophils 0.05 k/cumm (0.0-0.2) 09/09/19 06:45 PT 12.1 sec (9.3-11.0) H 09/04/19 10:50 INR 1.2 (0.9-1.1) H 09/04/19 10:50 APTT 30.6 sec (21.0-31.4) 09/04/19 10:50 ABG Sample Site Right radial 09/09/19 07:29 ABG pH 7.50 (7.35-7.45) H 09/09/19 07:29 ABG pCO2 31 mmHg (34-47) L 09/09/19 07:29 ABG pO2 60 mmHg (83-108) L 09/09/19 07:29 ABG HCO3 24 mmol/L (22-28) 09/09/19 07:29 ABG Total CO2 22 mmol/L (22-29) 09/09/19 07:29 ABG O2 Saturation 92 % (94-98) L 09/09/19 07:29 ABG Base Excess 1.2 mmol/L (-3-3) 09/09/19 07:29 Oxygen Liter Flow 14 360 5 40% L 09/07/19 09:50 FiO2 24 % 09/09/19 07:29 Sodium 144 mmol/L (136-145) 09/09/19 06:45 Potassium 3.9 mmol/L (3.5-5.1) D 09/09/19 06:45 Chloride 111 mmol/L (98-107) H 09/09/19 06:45 Carbon Dioxide 24.0 mmol/L (21.0-32.0) 09/09/19 06:45 Anion Gap 9.0 mmol/L (3-11) 09/09/19 06:45 BUN 9 mg/dL (7-18) 09/09/19 06:45 Creatinine 0.69 mg/dL (0.55-1.02) 09/09/19 06:45 Estimated GFR/1.73 m2 >= 60.00 (mL/min/1.73m2) 09/09/19 06:45 Glucose 147 mg/dL (74-106) H 09/09/19 06:45 Lactate 2.0 mmol/L (0.6-1.4) H 09/09/19 06:45 Calcium 7.9 mg/dL (8.5-10.1) L 09/09/19 06:45 Magnesium 2.1 mg/dL (1.8-2.4) 09/08/19 07:00 Total Bilirubin 0.9 mg/dL (0.2-1.0) 09/09/19 06:45 Conjugated Bilirubin 1.38 mg/dL (0.00-0.20) H 09/05/19 06:10 AST 64 U/L (15-37) H 09/09/19 06:45 ALT 50 U/L (14-59) 09/09/19 06:45 Alkaline Phosphatase 155 U/L (46-116) H 09/09/19 06:45 Troponin I < 0.05 ng/mL (<0.06) 09/08/19 16:15 NT-Pro-B Natriuret Pep 1198 pg/mL (<300) H 09/08/19 07:00 Total Protein 6.0 g/dL (6.4-8.2) L 09/09/19 06:45 Albumin 1.8 g/dL (3.4-5.0) L 09/09/19 06:45 Triglycerides 59 mg/dL (<150) 09/05/19 06:10 Total Cholesterol 71 mg/dL (<200) 09/05/19 06:10 LDL Cholesterol, Calc 35 mg/dL (<100) 09/05/19 06:10 HDL Cholesterol 25 mg/dL (40-60) L 09/05/19 06:10 Procalcitonin 0.4 ng/mL 09/08/19 11:52 TSH 5.74 uIU/mL (0.36-3.74) H 09/05/19 06:10 Free T4 1.26 ng/dL (0.76-1.46) 09/05/19 06:10 Urine Color Yellow (Yellow) 09/07/19 15:30 Urine Clarity Sl cloudy (Clear) 09/07/19 15:30 Urine pH 5.5 (5-8) 09/07/19 15:30 Ur Specific [place] 1.025 (1.005-1.025) 09/07/19 15:30 Urine Protein Trace mg/dL (Negative) H 09/07/19 15:30 Urine Ketones Trace mg/dL (Negative) H 09/07/19 15:30 Urine Blood Trace-intact (Negative) H 09/07/19 15:30 Urine Nitrite Negative (Negative) 09/07/19 15:30 Urine Bilirubin Moderate (Negative) H 09/07/19 15:30 Urine Urobilinogen 0.2 EU/dL (Up TO 0.2) 09/07/19 15:30 Ur Leukocyte Esterase Negative (Negative) 09/07/19 15:30 Urine RBC 3-5 HPF (0-2) H 09/07/19 15:30 Urine WBC 3-5 HPF (0-5) 09/07/19 15:30 Ur Epithelial Cells Few HPF (Negative) 09/07/19 15:30 Urine Crystals Negative HPF (Negative) 09/07/19 15:30 Urine Bacteria Few HPF (Negative) 09/07/19 15:30 Urine Casts Negative LPF (Negative) 09/07/19 15:30 Urine Mucus Negative (Negative) 09/07/19 15:30 Urine Other Negative (Negative) 09/07/19 15:30 Ur Culture Indicated? C&s done as ordered 09/07/19 15:30 Urine Glucose Negative mg/dL (Negative) 09/07/19 15:30 COVID-19 PCR Negative (Negative) 09/04/19 10:00 Nasopharyn COVID-19 PCR Not Applicable 09/04/19 10:00 Ref Test [facility]form [facility] 09/04/19 10:00
[2019-09-09] MEDS: Pantoprazole 40 MG VIAL IVP (09:21)
[2019-09-09] MEDS: Digoxin 0.5 MG/2 ML AMP 0.125 MG IVP (09:22)
[2019-09-09] MEDS: Cyanocobalamin 500 MCG TAB 1000 MCG NG (09:23)
[2019-09-09] MEDS: Normal Saline Flush 10 ML SYR IVP ×3 (09:23→16:12)
[2019-09-09] MEDS: Folic Acid 1 MG TAB NG (09:24)
[2019-09-09] MEDS: Atorvastatin 40 MG TAB NG (09:24)
[2019-09-09] MEDS: Aspirin 81 MG CHEW UD (09:24)
[2019-09-09] MEDS: Magnesium Oxide 400 MG TAB NG (09:24)
[2019-09-09] MEDS: Multivitamin TAB 1 TAB UD (09:24)
[2019-09-09] MEDS: Thiamine 100 MG TAB NG (09:24)
--- NOTE | 2019-09-09 09:24 | DI.VRAD_ITS ---
PROCEDURE INFORMATION: Exam: XR Chest, 1 View Exam date and time: 09/09/2019 9:09 AM Age: 59 years old Clinical indication: Other: Respiratory failure TECHNIQUE: Imaging protocol: XR of the chest Views: 1 view. COMPARISON: CR XR PORTABLE CHEST AP POST LINE 09/08/2019 5:47 AM FINDINGS: Tubes, catheters and devices: Endotracheal tube 5.5 cm above the beena. Nasogastric tube into the stomach. Lungs: Improving aeration of the right lower lobe, with continued hazy opacity remaining. Pleural space: Small pleural effusions bilaterally. Heart/Mediastinum: Stable cardiomegaly. Bones/joints: Unremarkable. IMPRESSION: 1. Endotracheal tube 5.5 cm above the beena. Nasogastric tube into the stomach. 2. Improving aeration of the right lower lobe, with continued hazy opacity remaining. 3. Small pleural effusions bilaterally. Dictated and Authenticated by: Danni Campa MD. Ordering:[facility] Tamica Eaton MD
[2019-09-09] MEDS: Nicotine 21 MG/24 HR PATCH TD (09:25)
--- NOTE | 2019-09-09 11:15 | DI.RAD_ITS ---
EXAM: XR PORTABLE CHEST AP POST LINE CLINICAL HISTORY: Central Line Placement TECHNIQUE: COMPARISON: CR,XR XR PORTABLE CHEST AP from 09/09/2019 FINDINGS: Portable supine chest at 1135 hours. Note is again made of endotracheal tube and NG tube in position . A left subclavian catheter has been placed the tip of which overlies the superior vena cava. No e vidence of pneumothorax on this supine view. IMPRESSION:
[2019-09-09] MEDS: Normal Saline-STERILE FIELD 0.9% 10 ML SYR (12:26)
--- NOTE | 2019-09-09 12:37 | ROE_ITS ---
Date of service: 09/09/19 Time of Service: 11:00 Operative Note Operative Note DATE OF PROCEDURE: 09/09/19 PRE-OP DIAGNOSIS: Need for IV access POST-OP DIAGNOSIS: same PROCEDURE: Left subclavian central line SURGEON: Suzy Segundo ANESTHESIA: GETA and local Indications: This 59-year-old patient is currently sedated and on a ventilator for alcohol withdrawal as well as pneumonia. She needs intravenous access. Consent is obtained from her significant other. Procedure Description: The patient was placed in slight Trendelenburg position and the PEEP stopped on the ventilator. Her left upper chest and neck were prepped and draped sterilely using the kit provided. The skin in the deltopectoral groove was infiltrated with local anesthetic and the 18-gauge needle used to access the left subclavian vein with the first attempt. The wire threaded easily and the needle was removed. A small incision was made in the skin at the wire entry site and the dilator passed over the wire. The triple- lumen catheter was threaded over the wire and then the wire removed. The brown port aspirated and flushed easily. The catheter was sutured to the chest wall with the silk stitch. All of the ports aspirated and were flushed. A sterile dressing was applied. Postprocedure chest x-ray was reviewed and showed the line to be in good position with no evidence of pneumothorax. She tolerated the procedure well.
--- NOTE | 2019-09-09 14:33 | NUR.NOTE ---
Dr. Segundo gave verbal order for Central line order to be placed in [facility] but the Central Line orders would not go through. Central Line PICC order used for Central Line Subclavian. Nursing Note:
[2019-09-09] MEDS: Metoclopramide 10 MG/2 ML VIAL IVP (14:54)
[2019-09-09] MEDS: PHENobarbital 130 MG/ML VIAL 260 MG IVP (16:12)
[2019-09-09] MEDS: POTASSIUM CHLORIDE/0.9% NACL 1,000 ML 100 MEQ IV ×2 (17:34→18:00)
[2019-09-09] MEDS: PHENobarbital 130 MG/ML VIAL IVP ×2 (19:48→21:44)
[2019-09-09] MEDS: Enoxaparin 40 MG/0.4 ML SYR SC (19:48)
[2019-09-09] MEDS: MIDAZOLAM 50 MG in Normal Saline 90 ML 15.1 MG IV (23:21)
[2019-09-10] VITALS (127 sets, daily range): BP systolic 64–137; BP diastolic 42–97; PULSE 67–156; RESP 2–40; TEMP 36.1–36.5; O2SAT 82–100
[2019-09-10] MEDS: Refresh PLUS Eye Drops 0.4ml 1 EACH OU ×4 (03:59→19:53)
[2019-09-10] MEDS: PHENobarbital 130 MG/ML VIAL IVP (04:00)
[2019-09-10] MEDS: POTASSIUM CHLORIDE/0.9% NACL 1,000 ML 100 MEQ IV (04:32)
[2019-09-10] MEDS: PIPERACILLIN/TAZO 4.5 GM in Normal Saline 100 ML IVPB ×3 (06:05→22:35)
--- NOTE | 2019-09-10 06:30 | DI.RAD_ITS ---
EXAM: XR PORTABLE CHEST AP CLINICAL HISTORY: Respiratory failure TECHNIQUE: 2D digital imaging was performed. COMPARISON: CR XR PORTABLE CHEST AP POST LINE from 09/09/2019 FINDINGS: MEDIASTINUM: Normal. HEART: Normal. PULMONARY VASCULATURE: Normal. LUNGS: Worsening right basilar infiltrate. PLEURAL SPACE: Probable small bilateral pleural effusions. BONE:Degenerative changes in the spine. OTHER FINDINGS:Endotracheal tube in good position 4 cm above the beena. Nasogastric tube passes bel ow the diaphragms into the stomach. The left sided central venous catheter is in good position. The tip is seen in the superior vena cava. IMPRESSION: Worsening opacity in the right lung base which may reflect worsening pneumonia or atelectasis. DATA REPOSITORY: RADIATION DOSE DELIVERED:
--- NOTE | 2019-09-10 07:18 | DI.VRAD_ITS ---
PROCEDURE INFORMATION: Exam: XR Chest, 1 View Exam date and time: 09/10/2019 7:05 AM Age: 59 years old Clinical indication: Condition or disease; Other: Respiratory failure, f/u pneumonia TECHNIQUE: Imaging protocol: XR of the chest Views: 1 view. COMPARISON: CR XR PORTABLE CHEST AP POST LINE 09/09/2019 11:29 AM FINDINGS: Tubes, catheters and devices: ET tube in place with tip 4 cm above the beena NG tube extends into stomach Lungs: Worsening opacity at the right lung base may reflect worsening pneumonia and or atelectasis. Pleural space: Unremarkable. No pleural effusion. No pneumothorax. Heart/Mediastinum: Unremarkable. No cardiomegaly. Vasculature: Left-sided subclavian central venous line in place tip in SVC Bones/joints: Unremarkable. IMPRESSION: Worsening opacity at the right lung base may reflect worsening pneumonia and or atelectasis. Dictated and Authenticated by: Ubaldo Carranza MD. Ordering:[facility] Tamica Eaton MD
[2019-09-10 07:25] LABS: Abs Immature Grans 0.02 k/cumm (0.0-0.09); Absolute Basophil Count 0.04 k/cumm (0.0-0.2); Absolute Eosinophil Count 0.13 k/cumm (0.0-0.7); Absolute Neutrophil Count 5.35 k/cumm (1.2-6.7); Basophils % 0.6; Eosinophils % 1.9; HCT 33.7 % (36.0-46.0); HGB 11.5 g/dL (12.0-15.5); Immature Grans % 0.3 %; Lymphocytes % 10.1; Mean Corp. HGB Concentration 34.1 g/dL (32.0-36.0); Mean Corpuscular Hemoglobin 36.2 pg (27.0-33.0); Mean Platelet Volume 10.5 fL (8.0-11.0); Monocytes % 10.1; Platelet Count 242 x1000/uL (130-400); RBC 3.18 m/cumm (4.00-5.20); RBC Distribution Width 14.3 % (11.7-14.6); White Blood Cell Count 6.94 k/cumm (4.4-10.8)
[2019-09-10 07:30] LABS: BE -1.2 mmol/L (-3-3); HCO3 23 mmol/L (22-28); pCO2 34 mmHg (34-47); pH 7.44 (7.35-7.45); pO2 73 mmHg (83-108); sO2 95 % (94-98); tCO2 21 mmol/L (22-29)
[2019-09-10 07:31] LABS: Anion Gap 4.6 mmol/L (3-11); BUN 10 mg/dL (7-18); CO2 27.4 mmol/L (21.0-32.0); CREATININE 0.64 mg/dL (0.55-1.02); Calcium 7.9 mg/dL (8.5-10.1); Chloride 112 mmol/L (98-107); Glucose 102 mg/dL (74-106); Potassium 4.4 mmol/L (3.5-5.1); Sodium 144 mmol/L (136-145)
[2019-09-10 07:32] LABS: FIO2 24 %; Site Left Radial
[2019-09-10 07:47] LABS: Diff Comment RBC Morph Reviewed; Macrocytosis 2+; Polychromasia Present
[2019-09-10] MEDS: Budesonide/Formoterol 160/4.5 6 GM 60 PUFF INH IH ×2 (08:08→20:57)
--- NOTE | 2019-09-10 08:47 | PGE_ITS ---
Date of Service Date of service: 09/10/19 Time of Service: 08:47 Assessment and Plan Assessment and plan (1) Respiratory failure: Status: Acute Assessment and plan: primary process was originally stated as being secondary to her need for high dose benzodiazepines for her alcohol withdrawal however review of her chart indicates that she aspirated on 09/04 and went into respiratory failure and was intubated on 09/05. I think her primary process has been a pneumonia all along. She clinically has been improving from her pneumonia in that she is afebrile, required little to no oxygen support while on the ASV ventilation and when her ASV setting has been turned down to 25% of her minute ventilation she has been taking all of her own ventilations when she is only lightly sedated. Furthermore her leukocytosis and her CO2 levels have been low with pH on the high end of normal at 7.50. Since extubation she has had a lot of secretions suctioned via NG and oropharyngeal suction which surprisingly RT and nursing was not getting much from her ET tube. I think she will do ok post extubation as long as sedatives are avoided, and good pulmonary toiletry is performed and she is given supportive care w/ NIPPV for the immediate 24 to 48 hr post extubation. I have broadened her coverage to incluce Vancomycin for CAP and vent. aquired pneumonia. She remains on high dose Zosyn. I will continue to monitor her inflammatory parameters and get procalcitonin level in the a.m. Qualifiers: Chronicity: acute Respiratory failure complication: hypoxia Qualified Code(s): J96.01 - Acute respiratory failure with hypoxia (2) Aspiration pneumonia: Status: Acute Assessment and plan: as listed above under RF. Add Vancomycin for HCAP/VAP; check sputum cultures, aggressive pulmonary toiletry; changed bronchodilators to scheduled rather than prn. (3) Difficult intravenous access: Status: Resolved Assessment and plan: thanks to Dr. Segundo for putting in CVP line over the weekend.. (4) Alcohol withdrawal delirium, acute, hyperactive: Status: Resolved Assessment and plan: resolved. continue thiamine and MVS and folic acid s upplementation. (5) Hypotension: Status: Resolved Assessment and plan: BP are still soft running in the 80-90 systolic but her MAP has been 65 or greater. She has been receiving iv fluids but she seems to be in some fluid overload and has bilateral pleural effusions. I will try diuretics over the next 24 hours to see if this helps with her chest congestion Qualifiers: Hypotension type: unspecified hypotension type Qualified Code(s): I95.9 - Hypotension, unspecified (6) Acute on chronic diastolic CHF (congestive heart failure), NYHA class 1: Status: Acute Assessment and plan: I have added iv lasix to her regimen. Per her echo from 08/19 she has low normal LVEF at 50% with no RWMA and mild RV dilatation w/ normal RV systolic function. I think that if her afib rate can be controlled then we can get her out of acute CHF. The difficulty in controlling her afib ra te is her bp can not tolerate lopressor or diltiazem. She has been digitalized however, I am going to increase her daily dose to 0.25 mg (7) Bilateral pleural effusion: Status: Resolved Assessment and plan: As above (8) E. coli UTI: Status: Acute Assessment and plan: with mixed gram positives. Presently on zosyn day 6 Obtain repeat urine C&S. (9) Atrial fibrillation: Status: Chronic Assessment and plan: afib rate before extubation was reasonable in the 90's to low 100's but with the SBT and extubation she has been in the 120's. (10) Alcohol dependence: Status: Chronic Assessment and plan: As above (11) Subclinical hypothyroidism: Status: Chronic Assessment and plan: Follow up as outpatient. (12) DVT prophylaxis: Status: Acute Assessment and plan: lovenox 40 mg SC daily and Continue TEDs/SCDs (13) Discharge planning issues: Status: Acute Assessment and plan: Full code Continues to require ICU. Total Critical Care Time 60 minutes. Subjective Subjective Interval history since last seen: Patient had an uneventful night overnight on the ventilator. Tube feedings were discontinued at 4 AM. Versed was shut off at 6 AM and the patient was weaned off of Precedex. Her RSB I remained in the 70s to 80s and a spontaneous breathing trial was performed for an hour and she seemed to do well with this maintaining her oxygen saturation. Respiratory therapy reports minimal secretions when they attempt to suction her. Although her chest x-ray is reading is worsening opacity at the right lung base and no pleural effusions I did a [id number] ultrasound of her lungs and she has consolidation at the right lung base and some atelectasis at the left lung base and she has small bilateral pleural effusions. In spite of these findings I think she is ready for extubation. From alcohol withdrawal standpoint she is now 7 days post admission and should not require further benzodiazepine treatment or phenobarbital treatment for alcohol withdrawal. I think she needs aggressive pulmonary toiletry and scheduled aerosolized bronchodilators. She needs continued antibiotics and again add vancomycin in addition to her Zosyn f or empiric coverage for possible hospital-acquired pneumonia. Exam Narrative Exam Narrative: When first examined this morning the patient was still intubated she was spontaneously opening her eyes and looking at the staff. She is following simple commands. Post extubation she had a lot of chest congestion and cough and required a lot of suctioning after extubation. Lungs with coarse rhonchi postextubation. Heart is irregular irregular and tachycardic Abdomen soft nondistended positive bowel sounds Extremities with 1+ to 2+ pitting edema Neuro exam she opens her eyes she does follow simple commands. Objective Objective Clinical Data: Abnormal lab results 09/10/19 09/10/19 09/10/19 Range/Units 06:15 06:15 07:25 RBC 3.18 L (4.00-5.20) m/cumm Hgb 11.5 L (12.0-15.5) g/dL Hct 33.7 L (36.0-46.0) % MCV 106.0 H (80-95) fL MCH 36.2 H (27.0-33.0) pg Absolute Lymphocytes 0.70 L (1.2-3.4) k/cumm ABG pO2 73 L (83-108) mmHg ABG Total CO2 21 L (22-29) mmol/L Chloride 112 H (98-107) mmol/L Calcium 7.9 L (8.5-10.1) mg/dL Vital Signs Temperature 36.4 C L 09/10/19 07:02 Temperature Source Temporal Artery Scan 09/10/19 07:02 Pulse 78 09/10/19 08:00 Pulse 73 09/10/19 08:01 Respiratory Rate 26 H 09/10/19 08:01 Respiratory Effort 09/10/19 07:02 Respiratory Depth Normal 09/10/19 07:02 Respiratory Pattern Normal 09/10/19 07:02 Blood Pressure 87/64 L 09/10/19 08:00 Blood Pressure Mean 70 09/10/19 08:00 Blood Pressure Position Right Lateral 07/12/20 16:00 Pulse Oximetry 95 09/10/19 08:01 Respiratory End-tidal CO2 24 09/10/19 08:01 Oxygen Delivery Method Mechanical Ventilator 09/10/19 07:02 Oxygen Flow Rate 0 09/10/19 07:02 Fraction of Inspired Oxygen (FIO2) 24 09/10/19 07:43 Pain Level 0 09/10/19 03:45 Intake & Output 09/09/19 09/09/19 09/10/19 11:59 23:59 11:59 Intake Total 1010.289 / 2413.899 1403.610 / 2413.899 1415.732 / 1415.732 Output Total 445 / 948 503 / 948 200 / 200 Balance 565.289 / 1465.899 900.610 / 2707.874 9260.732 / 1215.732 Weight 75.5 kg 76.6 kg Intake: IV 475.289 / 9093.743 0111.610 / 0742.462 7955.732 / 1415.732 Intake, Tube Feeding Amount 535 / 910 375 / 910 Output: Urine 350 / 825 475 / 825 200 / 200 Output, Residual 95 / 123 28 / 123 Other: Urine Color Light Kesha Light Kesha Light Kesha Urine Appearance Clear Clear Clear Comment Draining clear yellow still ramachandran in place. ramachandran in place and draining Laboratory Results WBC 6.94 k/cumm (4.4-10.8) 09/10/19 06:15 RBC 3.18 m/cumm (4.00-5.20) L 09/10/19 06:15 Hgb 11.5 g/dL (12.0-15.5) L 09/10/19 06:15 Hct 33.7 % (36.0-46.0) L 09/10/19 06:15 MCV 106.0 fL (80-95) H 09/10/19 06:15 MCH 36.2 pg (27.0-33.0) H 09/10/19 06:15 MCHC 34.1 g/dL (32.0-36.0) 09/10/19 06:15 RDW 14.3 % (11.7-14.6) 09/10/19 06:15 Plt Count 242 x1000/uL (130-400) 09/10/19 06:15 MPV 10.5 fL (8.0-11.0) 09/10/19 06:15 Immature Gran % 0.3 % 09/10/19 06:15 Neutrophils % 77.0 09/10/19 06:15 Lymphocytes % 10.1 09/10/19 06:15 Monocytes % 10.1 09/10/19 06:15 Eosinophils % 1.9 09/10/19 06:15 Basophils % 0.6 09/10/19 06:15 Absolute Neutrophils 5.35 k/cumm (1.2-6.7) 09/10/19 06:15 Absolute Lymphocytes 0.70 k/cumm (1.2-3.4) L 09/10/19 06:15 Absolute Monocytes 0.70 k/cumm (0.11-0.7) 09/10/19 06:15 Absolute Eosinophils 0.13 k/cumm (0.0-0.7) 09/10/19 06:15 Absolute Basophils 0.04 k/cumm (0.0-0.2) 09/10/19 06:15 Differential Comment Rbc morph reviewed 09/10/19 06:15 RBC Morphology See below 09/10/19 06:15 Polychromasia Present 09/10/19 06:15 Macrocytosis 2+ 09/10/19 06:15 PT 12.1 sec (9.3-11.0) H 09/04/19 10:50 INR 1.2 (0.9-1.1) H 09/04/19 10:50 APTT 30.6 sec (21.0-31.4) 09/04/19 10:50 ABG Sample Site Left radial 09/10/19 07:25 ABG pH 7.44 (7.35-7.45) 09/10/19 07:25 ABG pCO2 34 mmHg (34-47) 09/10/19 07:25 ABG pO2 73 mmHg (83-108) L 09/10/19 07:25 ABG HCO3 23 mmol/L (22-28) 09/10/19 07:25 ABG Total CO2 21 mmol/L (22-29) L 09/10/19 07:25 ABG O2 Saturation 95 % (94-98) 09/10/19 07:25 ABG Base Excess -1.2 mmol/L (-3-3) 09/10/19 07:25 Oxygen Liter Flow Asv 100% / peep 5 L 09/10/19 07:25 FiO2 24 % 09/10/19 07:25 Sodium 144 mmol/L (136-145) 09/10/19 06:15 Potassium 4.4 mmol/L (3.5-5.1) 09/10/19 06:15 Chloride 112 mmol/L (98-107) H 09/10/19 06:15 Carbon Dioxide 27.4 mmol/L (21.0-32.0) 09/10/19 06:15 Anion Gap 4.6 mmol/L (3-11) 09/10/19 06:15 BUN 10 mg/dL (7-18) 09/10/19 06:15 Creatinine 0.64 mg/dL (0.55-1.02) 09/10/19 06:15 Estimated GFR/1.73 m2 >= 60.00 (mL/min/1.73m2) 09/10/19 06:15 Glucose 102 mg/dL (74-106) 09/10/19 06:15 Lactate 2.0 mmol/L (0.6-1.4) H 09/09/19 06:45 Calcium 7.9 mg/dL (8.5-10.1) L 09/10/19 06:15 Magnesium 2.1 mg/dL (1.8-2.4) 09/08/19 07:00 Total Bilirubin 0.9 mg/dL (0.2-1.0) 09/09/19 06:45 Conjugated Bilirubin 1.38 mg/dL (0.00-0.20) H 09/05/19 06:10 AST 64 U/L (15-37) H 09/09/19 06:45 ALT 50 U/L (14-59) 09/09/19 06:45 Alkaline Phosphatase 155 U/L (46-116) H 09/09/19 06:45 Troponin I < 0.05 ng/mL (<0.06) 09/08/19 16:15 NT-Pro-B Natriuret Pep 1198 pg/mL (<300) H 09/08/19 07:00 Total Protein 6.0 g/dL (6.4-8.2) L 09/09/19 06:45 Albumin 1.8 g/dL (3.4-5.0) L 09/09/19 06:45 Triglycerides 59 mg/dL (<150) 09/05/19 06:10 Total Cholesterol 71 mg/dL (<200) 09/05/19 06:10 LDL Cholesterol, Calc 35 mg/dL (<100) 09/05/19 06:10 HDL Cholesterol 25 mg/dL (40-60) L 09/05/19 06:10 Procalcitonin 0.4 ng/mL 09/08/19 11:52 TSH 5.74 uIU/mL (0.36-3.74) H 09/05/19 06:10 Free T4 1.26 ng/dL (0.76-1.46) 09/05/19 06:10 Urine Color Yellow (Yellow) 09/07/19 15:30 Urine Clarity Sl cloudy (Clear) 09/07/19 15:30 Urine pH 5.5 (5-8) 09/07/19 15:30 Ur Specific [place] 1.025 (1.005-1.025) 09/07/19 15:30 Urine Protein Trace mg/dL (Negative) H 09/07/19 15:30 Urine Ketones Trace mg/dL (Negative) H 09/07/19 15:30 Urine Blood Trace-intact (Negative) H 09/07/19 15:30 Urine Nitrite Negative (Negative) 09/07/19 15:30 Urine Bilirubin Moderate (Negative) H 09/07/19 15:30 Urine Urobilinogen 0.2 EU/dL (Up TO 0.2) 09/07/19 15:30 Ur Leukocyte Esterase Negative (Negative) 09/07/19 15:30 Urine RBC 3-5 HPF (0-2) H 09/07/19 15:30 Urine WBC 3-5 HPF (0-5) 09/07/19 15:30 Ur Epithelial Cells Few HPF (Negative) 09/07/19 15:30 Urine Crystals Negative HPF (Negative) 09/07/19 15:30 Urine Bacteria Few HPF (Negative) 09/07/19 15:30 Urine Casts Negative LPF (Negative) 09/07/19 15:30 Urine Mucus Negative (Negative) 09/07/19 15:30 Urine Other Negative (Negative) 09/07/19 15:30 Ur Culture Indicated? C&s done as ordered 09/07/19 15:30 Urine Glucose Negative mg/dL (Negative) 09/07/19 15:30 COVID-19 PCR Negative (Negative) 09/04/19 10:00 Nasopharyn COVID-19 PCR Not Applicable 09/04/19 10:00 Ref Test Perform [facility] 09/04/19 10:00
[2019-09-10] MEDS: Pantoprazole 40 MG VIAL IVP (09:08)
[2019-09-10] MEDS: Furosemide 20 MG/2 ML VIAL IVP ×2 (09:09→15:25)
[2019-09-10] MEDS: Digoxin 0.5 MG/2 ML AMP 0.125 MG IVP ×2 (09:09→13:02)
[2019-09-10] MEDS: Normal Saline Flush 10 ML SYR IVP ×4 (09:10→21:56)
[2019-09-10] MEDS: ACETAMINOPHEN 1,000 MG/100 ML BTL 400 MG IVPB ×3 (09:11→23:27)
--- NOTE | 2019-09-10 09:40 | CMPROGNOTE_ITS ---
Care Management Progress Note S/O: Shantel continues to be closely monitored in the ICU, she is now extubated and being treated for aspiration pneumonia. She has a BIPAP mask on and continues to be unable to engage verbally. Speech consult delayed due to patient presentation at this time. Per MD, she is now through alcohol withdrawal. CM will continue to follow. A: 59 year old female admitted to [facility] 09/04/19 for Acute on Chronic Diastolic CHF, Alcohol withdrawal P: Shantel remains in the ICU at this time. CM continues to follow and will attempt to connect Shantel to [facility] directly upon discharge as well as [facility]. CM to discuss rehab placement when Shantel is able to engage in discussion fully. Shantel often utilizes RCT upon discharge.
--- NOTE | 2019-09-10 09:55 | W.SPSTP ---
Date of service: 09/10/19 Time of Service: 09:56 Subjective [employer]ACH[employer] called ICU at 9:57am to determine patient status and appropriateness for [employer]IST intervention(s) given recent intubation and changes in medical status over weekend; per nursing report, patient is non-coherent and unable to participate in trial of low tech communication system or PO trials at this time. [employer] M[employer]INIST to continue to follow. Objective/Assessment/Plan Objective Treatment Techniques &Outcomes: N/A Patient/Caregiver/Staff Education:: N/A Assessment N/A Plan Continue attempts at PO trials of ice chips via spoon with [employer]IST only when alert, upright, and 02 is above 89. Consider [place] Free Water protocol as appropriate given change in status with ongoing medical complications. Recommend continued diagnostic treatment visits with [employer]ACHINIST when patient is awake/alert to determine further treatment plan of care and appropriate goals, including trials of low tech AAC as needed to support communication abilities, with staff education/training as needed. Rehab Potential continues to be guarded. Short-Term Goals: TBD pending additional diagnostic treatment session. Long-Term Goals: TBD pending additional diagnostic treatment session. Pt Goal: To go home. PLAN Planned Treatment Interventions: TBD. Frequency: TBD. Intensity: TBD. Duration: TBD. Discharge Plan: TBD. SWALLOWING RECOMMENDATIONS NPO with NGT at this time per documentation review. Level of Assistance/Supervision: 100% direct supervision and assistance for all PO intake by [employer]ACH[employer]IST. Please monitor O2 stats for PO intake. Do not feed pt or provide drinks if below 89%. Posture/Positioning Needs: Pt must be fully upright for all PO intake. Do not feed reclined. Aspiration precautions. Recommendations Diet: NPO Liquids: NPO Strategies/Adaptions: Oral care at least 2x/day (Frequent oral care 3-4x/day to reduce oral bacteria and likelihood of aspirating oral contents and ensure oral comfort) and Other (NPO at this time given reduced SEGUNDO and recent intubation) Supervision: Frequent/periodic check-ins (Assess for SEGUNDO to determine appropriateness for [employer]ACH[employer]IST intervention) Recommendations: Maintain upright head of bed to reduce likelihood of aspiration from tube feeding, saliva Total Time Spent: N/A
[2019-09-10] MEDS: Albuterol/Ipratropium 3 ML UPD VIAL UPD ×4 (10:51→21:55)
[2019-09-10] MEDS: Metoprolol 5 MG/5 ML VIAL 2.5 MG IVP ×4 (12:40→22:35)
[2019-09-10] MEDS: Lacri-Lube 3.5 GM TUBE OU (12:43)
[2019-09-10] MEDS: Magnesium Oxide 400 MG TAB NG (12:55)
[2019-09-10] MEDS: Cyanocobalamin 500 MCG TAB 1000 MCG NG (12:56)
[2019-09-10] MEDS: Multivitamin TAB 1 TAB UD (12:56)
[2019-09-10] MEDS: Thiamine 100 MG TAB NG (12:56)
[2019-09-10] MEDS: Atorvastatin 40 MG TAB NG (12:56)
[2019-09-10] MEDS: Aspirin 81 MG CHEW UD (12:56)
[2019-09-10] MEDS: Folic Acid 1 MG TAB NG (12:56)
[2019-09-10] MEDS: Nicotine 21 MG/24 HR PATCH TD (13:01)
--- NOTE | 2019-09-10 13:30 | RT.EKG_ITS ---
APPROVED REPORT Exam: Resting ECG Patient Location: I HR:132 bpm ECG Measurements Heart Rate 132 [address] [place] [id number] P [id number] QRSd 83 QRS 43 QT 310 T 216 QTc 460 <Conclusion> Atrial fibrillation...V-rate 122-163, irreg A-activity Ventricular premature complex...V complex w/ short R-R interval Low voltage, extremity and precordial leads...extremity<0.5mV, precordial<1.0mV Consider anterolateral infarct...Q >30mS, I aVL V3-V6,I,aVL Repol abnrm suggests ischemia, diffuse leads...ST-T neg, ant/lat/inf I have reviewed and interpreted ECG and agree with software generated interpretation.
[2019-09-10] MEDS: Ketamine 50 MG/5 ML SYRINGE 100 MG IVP (16:11)
[2019-09-10] MEDS: Rocuronium 50 MG/5 ML SYR 90 MG IVP (16:13)
--- NOTE | 2019-09-10 16:15 | DI.RAD_ITS ---
EXAM: XR PORTABLE CHEST AP CLINICAL HISTORY: Post intubation TECHNIQUE: COMPARISON: CR,XR XR PORTABLE CHEST AP from 09/10/2019 FINDINGS: Portable chest film at 1625 hours. Note is again made of ET tube and NG tube in position. Mild card iomegaly noted. There may be left basilar consolidation versus pleural effusion, follow-up PA and la teral chest suggested. Little interval change allowing for technique in comparison with examination obtained at 0705 hours. IMPRESSION:
--- NOTE | 2019-09-10 16:35 | DI.VRAD_ITS ---
PROCEDURE INFORMATION: Exam: XR Chest, 1 View Exam date and time: 09/10/2019 4:25 PM Age: 59 years old Clinical indication: Device placement; Other: Post intubation; Patient HX: Post-intubation TECHNIQUE: Imaging protocol: XR of the chest Views: 1 view. COMPARISON: CR XR PORTABLE CHEST AP 09/10/2019 6:59 AM FINDINGS: Tubes, catheters and devices: Endotracheal tube terminates 5.8 cm above the beena in good position. Enteric tube is seen within the stomach. Overlying EKG wires A left peripherally inserted central venous catheter lies with its tip in the superior vena cava. Lungs: Opacity in the left base may represent atelectasis or pneumonia. Pleural space: May be mild left pleural effusion. Heart/Mediastinum: Cardiomegaly Bones/joints: Unremarkable. Other findings: Patient is rotated to the left IMPRESSION: 1. Endotracheal tube terminates 5.8 cm above the beena in good position. . 2. Enteric tube is seen within the stomach. 3. Opacity in the left base may represent atelectasis or pneumonia. 4. May be mild left pleural effusion. Dictated and Authenticated by: Denny Prather MD. Ordering:[facility] Tamica Eaton MD
[2019-09-10] MEDS: Albuterol 2.5 MG/3 ML INH SOLN VIAL UPD (16:50)
--- NOTE | 2019-09-10 16:57 | W.PM.OP ---
Date of service: 09/10/19 Time of Service: 16:57 Operative Note Operative Note DATE OF PROCEDURE: 09/09/19 PRE-OP DIAGNOSIS: Respiratory failure, pneumonia POST-OP DIAGNOSIS: same Same PROCEDURE: Endotracheal intubation SURGEON: Angelito Davey ANESTHESIA: other (RSI) ESTIMATED BLOOD LOSS: 0 PATHOLOGY: none sent COMPLICATIONS: None Patient was transported to: no change Patient's condition: critical Indications: Acute respiratory failure in the setting of aspiration pneumonia Procedure Description: Patient had been extubated this morning and became progressively more dyspneic throughout the day along with tachycardia with rapid atrial fibrillation unresponsive medications. She became tachypneic and required higher FiO2 requirements to maintain her saturation. Despite a 50% facemask her oxygen saturation was only 88 to 90%. Patient required emergent intubation and was premedicated with phenylephrine 80 mcg IV push, ketamine 100 mg IV push, rocuronium 90 mg IV push. Patient was preoxygenation with Ambu bag valve facemask to an oxygen saturation of 95 to 97%. Using #2 glide scope the vocal cords were visualized. Patient had a lot of secretions which were suctioned with tonsils suction. A #7 endotracheal tube was advanced between the vocal cords to the level of 24 cm at the lips. Placement was confirmed by auscultation as well as observation of an end-tidal CO2 capnometer color change. SPO2 was 100%. ET tube position was confirmed by post intubation chest x-ray.
[2019-09-10 17:13] LABS: BE -0.8 mmol/L (-3-3); HCO3 26 mmol/L (22-28); pCO2 56 mmHg (34-47); pH 7.27 (7.35-7.45); pO2 64 mmHg (83-108); sO2 88 % (94-98); tCO2 24 mmol/L (22-29)
[2019-09-10 17:15] LABS: Site Left Radial
[2019-09-10 17:16] LABS: FIO2 40 %
[2019-09-10] MEDS: LORazepam 2 MG/ML VIAL IVP ×2 (18:07→21:56)
[2019-09-10] MEDS: MORPHine 2 MG/ML SYR IVP ×3 (18:29→21:56)
[2019-09-10 19:02] LABS: BE -1.4 mmol/L (-3-3); HCO3 25 mmol/L (22-28); pCO2 47 mmHg (34-47); pH 7.33 (7.35-7.45); pO2 85 mmHg (83-108); sO2 96 % (94-98); tCO2 23 mmol/L (22-29)
[2019-09-10 19:04] LABS: FIO2 60 %; Site Left Radial
[2019-09-10] MEDS: levoFLOXacin 750 MG/150 ML BAG 100 MG IVPB (19:14)
[2019-09-10] MEDS: Enoxaparin 40 MG/0.4 ML SYR SC (19:53)
--- NOTE | 2019-09-10 20:04 | NUR.NOTE ---
The patient's niece (Trish gilmore) has gained legal guardianship of the patient and stopped in the unit to fill out a new HIPPA. There is a copy of the guardianship with Care Management and in the patient's chart. Nursing Note:
[2019-09-10 20:24] LABS: NT-proBNP 6761 pg/mL (<300); Troponin I < 0.05 ng/mL (<0.06)
[2019-09-10 20:57] LABS: ALT 53 U/L (14-59); AST 65 U/L (15-37); Albumin 1.9 g/dL (3.4-5.0); Alkaline Phosphatase 159 U/L (46-116); Anion Gap 6.4 mmol/L (3-11); BUN 9 mg/dL (7-18); Bilirubin, Total 0.8 mg/dL (0.2-1.0); CO2 27.6 mmol/L (21.0-32.0); CREATININE 0.87 mg/dL (0.55-1.02); Calcium 8.3 mg/dL (8.5-10.1); Chloride 110 mmol/L (98-107); Glucose 114 mg/dL (74-106); Potassium 4.5 mmol/L (3.5-5.1); Sodium 144 mmol/L (136-145); Total Protein 6.2 g/dL (6.4-8.2)
[2019-09-10 21:10] LABS: Lactate 1.7 mmol/L (0.6-1.4)
[2019-09-10 21:15] LABS: Abs Immature Grans 0.02 k/cumm (0.0-0.09); Absolute Basophil Count 0.03 k/cumm (0.0-0.2); Absolute Eosinophil Count 0.02 k/cumm (0.0-0.7); Absolute Lymphocyte Count 0.51 k/cumm (1.2-3.4); Absolute Monocyte Count 0.89 k/cumm (0.11-0.7); Absolute Neutrophil Count 8.55 k/cumm (1.2-6.7); Basophils % 0.3; Eosinophils % 0.2; HCT 34.5 % (36.0-46.0); HGB 11.2 g/dL (12.0-15.5); Immature Grans % 0.2 %; Lymphocytes % 5.1; Mean Corp. HGB Concentration 32.5 g/dL (32.0-36.0); Mean Corpuscular Volume 107.8 fL (80-95); Mean Platelet Volume 10.3 fL (8.0-11.0); Monocytes % 8.9; Neutrophils % 85.3; Platelet Count 272 x1000/uL (130-400); RBC Distribution Width 14.4 % (11.7-14.6); White Blood Cell Count 10.02 k/cumm (4.4-10.8)
[2019-09-10 21:23] LABS: Procalcitonin 7.9 ng/mL
[2019-09-11] VITALS (77 sets, daily range): BP systolic 84–146; BP diastolic 51–101; PULSE 66–138; RESP 8–30; TEMP 36–36.8; O2SAT 95–100
[2019-09-11] MEDS: Lacri-Lube 3.5 GM TUBE OU ×2 (01:28→12:22)
[2019-09-11] MEDS: Albuterol/Ipratropium 3 ML UPD VIAL UPD ×3 (02:00→10:32)
[2019-09-11] MEDS: Refresh PLUS Eye Drops 0.4ml 1 EACH OU ×2 (05:17→08:12)
--- NOTE | 2019-09-11 06:25 | DI.RAD_ITS ---
EXAM: XR PORTABLE CHEST AP CLINICAL HISTORY: Respiratory failure TECHNIQUE: COMPARISON: CR,XR XR PORTABLE CHEST AP from 09/10/2019 FINDINGS: Note is again made of NG tube ET tube in position along left subclavian catheter the tip of which ove rlies the SVC. Bilateral basilar opacities again noted, left greater than right, grossly unchanged. Possible small pleural effusions. IMPRESSION: Stable appearance of the chest since yesterday's examination.
[2019-09-11] MEDS: PIPERACILLIN/TAZO 4.5 GM in Normal Saline 100 ML IVPB (06:26)
--- NOTE | 2019-09-11 06:26 | DI.VRAD_ITS ---
PROCEDURE INFORMATION: Exam: XR Chest, 1 View Exam date and time: 09/11/2019 6:12 AM Age: 59 years old Clinical indication: Patient HX: Pneumonia, respiratory failure TECHNIQUE: Imaging protocol: XR of the chest Views: 1 view. COMPARISON: CR XR PORTABLE CHEST AP 09/10/2019 4:19 PM FINDINGS: Line and tubes are grossly stable accounting for differences in technique. The heart, mediastinum and osseous structures are grossly stable. Grossly stable small effusions and left greater than right basilar opacities. Mild edema not excluded. No pneumothorax IMPRESSION: Grossly stable radiographic appearance of the chest Dictated and Authenticated by: Yohannes Lopez MD. Ordering:[facility] Tamica Eaton MD
[2019-09-11 07:09] LABS: Abs Immature Grans 0.03 k/cumm (0.0-0.09); Absolute Basophil Count 0.05 k/cumm (0.0-0.2); Absolute Eosinophil Count 0.11 k/cumm (0.0-0.7); Absolute Monocyte Count 1.07 k/cumm (0.11-0.7); Absolute Neutrophil Count 7.99 k/cumm (1.2-6.7); Basophils % 0.5; Eosinophils % 1.1; HCT 37.3 % (36.0-46.0); HGB 12.6 g/dL (12.0-15.5); Immature Grans % 0.3 %; Mean Corp. HGB Concentration 33.8 g/dL (32.0-36.0); Mean Corpuscular Hemoglobin 35.7 pg (27.0-33.0); Mean Corpuscular Volume 105.7 fL (80-95); Mean Platelet Volume 10.4 fL (8.0-11.0); Monocytes % 10.6; Neutrophils % 79.5; RBC 3.53 m/cumm (4.00-5.20); RBC Distribution Width 14.3 % (11.7-14.6); White Blood Cell Count 10.05 k/cumm (4.4-10.8)
[2019-09-11 07:26] LABS: Anion Gap 7.4 mmol/L (3-11); BUN 7 mg/dL (7-18); CO2 29.6 mmol/L (21.0-32.0); CREATININE 0.73 mg/dL (0.55-1.02); Calcium 8.6 mg/dL (8.5-10.1); Chloride 105 mmol/L (98-107); Glucose 127 mg/dL (74-106); Potassium 3.7 mmol/L (3.5-5.1); Sodium 142 mmol/L (136-145)
[2019-09-11 07:38] LABS: Diff Comment RBC Morph Reviewed; Macrocytosis 2+; Platelet Count 385 x1000/uL (130-400)
[2019-09-11 07:56] LABS: HCO3 29 mmol/L (22-28); pCO2 39 mmHg (34-47); pH 7.47 (7.35-7.45); pO2 182 mmHg (83-108)
[2019-09-11 07:58] LABS: Site Right Radial; sO2 > 99 % (94-98)
[2019-09-11 07:59] LABS: FIO2 60 %
[2019-09-11] MEDS: Aspirin 81 MG CHEW UD (08:11)
[2019-09-11] MEDS: Folic Acid 1 MG TAB NG (08:11)
[2019-09-11] MEDS: Multivitamin TAB 1 TAB UD (08:11)
[2019-09-11] MEDS: Atorvastatin 40 MG TAB NG (08:11)
[2019-09-11] MEDS: Thiamine 100 MG TAB NG (08:11)
[2019-09-11] MEDS: Magnesium Oxide 400 MG TAB NG (08:12)
[2019-09-11] MEDS: ACETAMINOPHEN 1,000 MG/100 ML BTL 400 MG IVPB (08:12)
[2019-09-11] MEDS: Cyanocobalamin 500 MCG TAB 1000 MCG NG (08:12)
[2019-09-11] MEDS: Pantoprazole 40 MG VIAL IVP (08:13)
[2019-09-11] MEDS: Nicotine 21 MG/24 HR PATCH TD (08:14)
[2019-09-11] MEDS: Digoxin 0.5 MG/2 ML AMP 0.25 MG IVP (08:51)
--- NOTE | 2019-09-11 09:20 | W.NUTRFU ---
Date of service: 09/11/19 Time of Service: 09:21 Nutritional Follow up NOTE: Pt extubated yesterday, then reintubated. NG tube remains in place, tube feeding on hold. Recommend restarting tube feeding when appropriate. Jevity 1.5 @41cc/hour, flush 250 ml q 6 hours providing total of 1500 kcal, 60 g protein, 2080 ml free fluid. Time Spent in Nutritional Counseling and Treatment: 0 time spent face to face
--- NOTE | 2019-09-11 09:41 | CMPROGNOTE_ITS ---
Care Management Progress Note S/O: Shantel continues to be closely monitored in the ICU, she is now re- intubated and MD reports working toward transferring to tertiary. Her niece arrived at [facility] to provide new temporary emergency guardianship paperwork. Her name is Trish Estrada, Kalee#[phone]. CM will continue to follow. A: 59 year old female admitted to [facility] 09/04/19 for Acute on Chronic Diastolic CHF, Alcohol withdrawal P: Shantel remains in the ICU at this time MD reports working toward transferring to tertiary. Maura will transport via EMS coordinated by EVANGELINA.
[2019-09-11] MEDS: Budesonide/Formoterol 160/4.5 6 GM 60 PUFF INH IH (10:32)
--- NOTE | 2019-09-11 10:39 | SPP_ITS ---
Date of Service September 11, 2019 Subjective [employer] contacted ICU to follow-up on pt status today. Nursing confirmed that pt was reintubated. Nutrition follow-up note (09/11/19) states, pt extubated yesterday, then reintubated. NG tube remains in place, tube feeding on hold. Recommend restarting tube feeding when appropriate. Jevity 1.5 @41cc/hour, flush 250 ml q 6 hours providing total of 1500 kcal, 60 g protein, 2080 ml free fluid. Pt not appropriate for swallow treatment at this time, however, INS[employer] provided education to nursing regarding trialing visual supports for communication opportunities. INS[employer] sent nursing a variety of basic communication boards to use with pt. Nursing advised to contact the [employer] department with questions. INS[employer] M[employer]OR plans to follow-up on . Charge Code: [id number] charge Coding
--- NOTE | 2019-09-11 10:39 | AMB.SPSTP ---
Date of Service September 11, 2019 Subjective [employer] contacted ICU to follow-up on pt status today. Nursing confirmed that pt was reintubated. Nutrition follow-up note (09/11/19) states, pt extubated yesterday, then reintubated. NG tube remains in place, tube feeding on hold. Recommend restarting tube feeding when appropriate. Jevity 1.5 @41cc/hour, flush 250 ml q 6 hours providing total of 1500 kcal, 60 g protein, 2080 ml free fluid. Pt not appropriate for swallow treatment at this time, however, C[employer]TER provided education to nursing regarding trialing visual supports for communication opportunities. [employer] sent nursing a variety of basic communication boards to use with pt. Nursing advised to contact the [employer] department with questions. C[employer] CON[employer]TER plans to follow-up on . Charge Code: [id number] charge Coding
--- NOTE | 2019-09-11 10:49 | W.PM.PROGNOT ---
Date of Service Date of service: 09/11/19 Time of Service: 10:49 Assessment and Plan Assessment and plan (1) Respiratory failure: Status: Acute Assessment and plan: Multifactorial respiratory failure including aspiration pneumonia with superimposed volume overload and depressed respiratory drive due to accumulation of benzodiazepines. Patient's been off of all benzodiazepines now for more than 24 hours is been lightly sedated with Precedex. She seems to be more alert and responsive and appropriate. Nevertheless she still is volume overloaded and still requires treatment for aspiration pneumonia. Yesterday at the time of extubation she ended up coughing copious secretions but was unable to protect her airway or maintain a gag reflex and this necessitated reintubation yesterday afternoon. Her procalcitonin level had risen to 7.9 yesterday consistent with sepsis. She required reinitiation of norepinephrine yesterday to maintain her blood pressure. Her antibiotic coverage was broadened from Zosyn to include Vancomycin and Levaquin as well. Qualifiers: Chronicity: acute Respiratory failure complication: hypoxia Qualified Code(s): J96.01 - Acute respiratory failure with hypoxia (2) Aspiration pneumonia: Status: Acute Assessment and plan: Broaden antibiotic coverage as listed above. Continue ventilatory support. Plan for transfer to [facility] today. (3) Difficult intravenous access: Status: Resolved Assessment and plan: thanks to Dr. Segundo for putting in CVP line over the weekend.. (4) Alcohol withdrawal delirium, acute, hyperactive: Status: Resolved Assessment and plan: resolved. continue thiamine and MVS and folic acid supplementation. No need for further phenobarbital or benzodiazepines at this time. (5) Hypotension: Status: Acute Assessment and plan: Patient had further hypotension yesterday afternoon and evening particularly after being reintubated and required reinitiation of norepinephrine. Hypotension is secondary to sepsis as evidenced by the elevated procalcitonin level. Blood pressures have improved since initiation of norepinephrine drip. Qualifiers: Hypotension type: unspecified hypotension type Qualified Code(s): I95.9 - Hypotension, unspecified (6) Acute on chronic diastolic CHF (congestive heart failure), NYHA class 1: Status: Acute Assessment and plan: Improved since being put on Lasix drip. Follow-up echocardiogram should be done upon transfer to [facility] to reassess her LV and RV function. (7) Bilateral pleural effusion: Status: Resolved Assessment and plan: As above (8) E. coli UTI: Status: Resolved Assessment and plan: Resolved. Repeat urine culture came back no growth after 48 hours from September 07, 2019 (9) Atrial fibrillation: Status: Chronic Assessment and plan: A. fib rate was exacerbated yesterday while she was having respiratory distress. Rate is improved control but still not optimal. Her heart rate is 100-1 20. She continues to receive IV digoxin as well as PRN Lopressor. (10) Alcohol dependence: Status: Chronic Assessment and plan: As above. She will need outpatient support upon discharge (11) Subclinical hypothyroidism: Status: Chronic Assessment and plan: Follow up as outpatient. (12) DVT prophylaxis: Status: Acute Assessment and plan: lovenox 40 mg SC daily and Continue TEDs/SCDs (13) Discharge planning issues: Status: Acute Assessment and plan: Per her niece, Trish Estrada, the patient has no where to go upon discharge from the hospital as none of her family can care for her. CM will need to look into SNF placement upon discharge from [facility] Subjective Subjective Interval history since last seen: Patient stabilized overnight after being reintubated yesterday evening and restarted on norepinephrine drip and being started on a furosemide drip. Patient is afebrile this morning with a blood pressure 93/67. Overnight her blood pressures ran in the low 100s to 120s over diastolic readings in the 70s to 80s. She is currently mildly sedated with a Precedex drip running at 0.5 mcg/kg/hr. Her lasix drip is at 5mg/hr and she has had a good diuretic respone w/ urine output of 3500 mL. Patient is net -2800 mL since yesterday. Patient's current ventilator settings are AC of 12 tidal volume 430 mL with an FiO2 of 40% and 5 cm of PEEP. Patient is peak airway pressure is 17 cm and her minute ventilation is 10 L. ABGs are acceptable this morning with a pH 7.47 PCO2 39, PO2 182, bicarbonate level 29. Chest x-ray again shows by basilar opacities consistent with pneumonia and pleural effusions. Based on the fact that the patient has required prolonged intubation and failed initial extubation I feel the patient would benefit from transfer to a tertiary care center for further pulmonary and critical care management. Called the patient's niece Trish Estrada who is in agreement with transfer. I then placed a call to [facility] transfer center and spoke with Dr. Chong Zhang and Dr. Barbi Sampson who are in agreement w/ transfer to [facility] for further critical care management. Exam Narrative Exam Narrative: Elderly female appears older than her stated age of 59. She is lightly sedated opens her eyes and moves all 4 extremities voluntarily. Lungs with scattered rhonchi bilaterally. She has diminished breath sounds at the bases posteriorly. Heart is irregularly irregular Abdomen is nondistended soft with normal active bowel sounds. Extremities with 1+ pitting edema in her hands and wrists but none in her feet and ankles. Neuro exam patient opens her eyes spontaneously looks at me and seems to follow simple commands moves all 4 extremities. GCS 11 (E4, V1t, M6), unable to assess verbal response as the patient is intubated Objective Objective Clinical Data: Abnormal lab results 09/10/19 09/10/19 09/10/19 Range/Units 17:05 17:45 19:50 RBC (4.00-5.20) m/cumm Hgb (12.0-15.5) g/dL Hct (36.0-46.0) % MCV (80-95) fL MCH (27.0-33.0) pg Absolute Neutrophils (1.2-6.7) k/cumm Absolute Lymphocytes (1.2-3.4) k/cumm Absolute Monocytes (0.11-0.7) k/cumm ABG pH 7.27 L 7.33 L (7.35-7.45) ABG pCO2 56 H (34-47) mmHg ABG pO2 64 L (83-108) mmHg ABG HCO3 (22-28) mmol/L ABG O2 Saturation 88 L (94-98) % ABG Base Excess (-3-3) mmol/L Chloride (98-107) mmol/L Glucose (74-106) mg/dL Lactate (0.6-1.4) mmol/L Calcium (8.5-10.1) mg/dL AST (15-37) U/L Alkaline Phosphatase (46-116) U/L NT-Pro-B Natriuret Pep 6761 H (<300) pg/mL Total Protein (6.4-8.2) g/dL Albumin (3.4-5.0) g/dL 09/10/19 09/10/19 09/10/19 Range/Units 19:50 20:35 20:45 RBC 3.20 L (4.00-5.20) m/cumm Hgb 11.2 L (12.0-15.5) g/dL Hct 34.5 L (36.0-46.0) % MCV 107.8 H (80-95) fL MCH 35.0 H (27.0-33.0) pg Absolute Neutrophils 8.55 H (1.2-6.7) k/cumm Absolute Lymphocytes 0.51 L (1.2-3.4) k/cumm Absolute Monocytes 0.89 H (0.11-0.7) k/cumm ABG pH (7.35-7.45) ABG pCO2 (34-47) mmHg ABG pO2 (83-108) mmHg ABG HCO3 (22-28) mmol/L ABG O2 Saturation (94-98) % ABG Base Excess (-3-3) mmol/L Chloride 110 H (98-107) mmol/L Glucose 114 H (74-106) mg/dL Lactate 1.7 H (0.6-1.4) mmol/L Calcium 8.3 L (8.5-10.1) mg/dL AST 65 H (15-37) U/L Alkaline Phosphatase 159 H (46-116) U/L NT-Pro-B Natriuret Pep (<300) pg/mL Total Protein 6.2 L (6.4-8.2) g/dL Albumin 1.9 L (3.4-5.0) g/dL 09/11/19 09/11/19 09/11/19 Range/Units 06:25 06:25 07:52 RBC 3.53 L (4.00-5.20) m/cumm Hgb (12.0-15.5) g/dL Hct (36.0-46.0) % MCV 105.7 H (80-95) fL MCH 35.7 H (27.0-33.0) pg Absolute Neutrophils 7.99 H (1.2-6.7) k/cumm Absolute Lymphocytes 0.80 L (1.2-3.4) k/cumm Absolute Monocytes 1.07 H (0.11-0.7) k/cumm ABG pH 7.47 H (7.35-7.45) ABG pCO2 (34-47) mmHg ABG pO2 182 H (83-108) mmHg ABG HCO3 29 H (22-28) mmol/L ABG O2 Saturation > 99 H (94-98) % ABG Base Excess 5.0 H (-3-3) mmol/L Chloride (98-107) mmol/L Glucose 127 H (74-106) mg/dL Lactate (0.6-1.4) mmol/L Calcium (8.5-10.1) mg/dL AST (15-37) U/L Alkaline Phosphatase (46-116) U/L NT-Pro-B Natriuret Pep (<300) pg/mL Total Protein (6.4-8.2) g/dL Albumin (3.4-5.0) g/dL Vital Signs Temperature 36.8 C 09/11/19 07:40 Temperature Source Temporal Artery Scan 09/11/19 07:40 Pulse 132 H 09/11/19 10:43 Pulse 125 H 09/11/19 09:15 Respiratory Rate 23 09/11/19 10:44 Respiratory Effort Mechanically Ventilated 09/11/19 07:40 Respiratory Depth Shallow 09/10/19 15:11 Respiratory Pattern Normal 09/11/19 07:40 Blood Pressure 123/78 09/11/19 09:15 Blood Pressure Mean 89 09/11/19 09:15 Blood Pressure Position Supine 09/10/19 23:36 Pulse Oximetry 100 09/11/19 10:44 Respiratory End-tidal CO2 28 09/11/19 10:44 Oxygen Delivery Method Mechanical Ventilator 09/11/19 10:32 Oxygen Flow Rate 0 09/11/19 10:32 Fraction of Inspired Oxygen (FIO2) 40 09/11/19 10:44 Pain Level 0 09/10/19 23:36 Intake & Output 09/10/19 09/10/19 09/11/19 11:59 23:59 11:59 Intake Total 1984.538 / 3569.934 1485.396 / 3569.934 391.976 / 391.976 Output Total 200 / 3965 3765 / 3965 3505 / 3505 Balance 1784.538 / -395.066 -2279.604 / -395.066 -3113.024 / -3113.024 Weight 76.6 kg 74.6 kg Intake: IV 1984.538 / 3569.934 1485.396 / 3569.934 391.976 / 391.976 Output: Gastric Drainage 5 Right Nare Urine 200 / 3225 3025 / 3225 3500 / 3500 Stool 700 / 700 Other: Urine Color Light Kesha Pale Yellow Yellow Urine Appearance Clear Clear Clear Comment ramachandran in place and draining ramachandran in place and draining, ramachandran in place and draining, Stool Size Moderate Stool Characteristics Liquid Brown Laboratory Results WBC 10.05 k/cumm (4.4-10.8) 09/11/19 06:25 RBC 3.53 m/cumm (4.00-5.20) L 09/11/19 06:25 Hgb 12.6 g/dL (12.0-15.5) 09/11/19 06:25 Hct 37.3 % (36.0-46.0) 09/11/19 06:25 MCV 105.7 fL (80-95) H 09/11/19 06:25 MCH 35.7 pg (27.0-33.0) H 09/11/19 06:25 MCHC 33.8 g/dL (32.0-36.0) 09/11/19 06:25 RDW 14.3 % (11.7-14.6) 09/11/19 06:25 Plt Count 385 x1000/uL (130-400) D 09/11/19 06:25 MPV 10.4 fL (8.0-11.0) 09/11/19 06:25 Immature Gran % 0.3 % 09/11/19 06:25 Neutrophils % 79.5 09/11/19 06:25 Lymphocytes % 8.0 09/11/19 06:25 Monocytes % 10.6 09/11/19 06:25 Eosinophils % 1.1 09/11/19 06:25 Basophils % 0.5 09/11/19 06:25 Absolute Neutrophils 7.99 k/cumm (1.2-6.7) H 09/11/19 06:25 Absolute Lymphocytes 0.80 k/cumm (1.2-3.4) L 09/11/19 06:25 Absolute Monocytes 1.07 k/cumm (0.11-0.7) H 09/11/19 06:25 Absolute Eosinophils 0.11 k/cumm (0.0-0.7) 09/11/19 06:25 Absolute Basophils 0.05 k/cumm (0.0-0.2) 09/11/19 06:25 Differential Comment Rbc morph reviewed 09/11/19 06:25 RBC Morphology See below 09/11/19 06:25 Polychromasia Present 09/10/19 06:15 Macrocytosis 2+ 09/11/19 06:25 PT 12.1 sec (9.3-11.0) H 09/04/19 10:50 INR 1.2 (0.9-1.1) H 09/04/19 10:50 APTT 30.6 sec (21.0-31.4) 09/04/19 10:50 ABG Sample Site Right radial 09/11/19 07:52 ABG pH 7.47 (7.35-7.45) H 09/11/19 07:52 ABG pCO2 39 mmHg (34-47) 09/11/19 07:52 ABG pO2 182 mmHg (83-108) H 09/11/19 07:52 ABG HCO3 29 mmol/L (22-28) H 09/11/19 07:52 ABG Total CO2 Not Applicable 09/11/19 07:52 ABG O2 Saturation > 99 % (94-98) H 09/11/19 07:52 ABG Base Excess 5.0 mmol/L (-3-3) H 09/11/19 07:52 Oxygen Liter Flow Vt 520/r 12/peep 5 L 09/11/19 07:52 FiO2 60 % 09/11/19 07:52 Sodium 142 mmol/L (136-145) 09/11/19 06:25 Potassium 3.7 mmol/L (3.5-5.1) 09/11/19 06:25 Chloride 105 mmol/L (98-107) 09/11/19 06:25 Carbon Dioxide 29.6 mmol/L (21.0-32.0) 09/11/19 06:25 Anion Gap 7.4 mmol/L (3-11) 09/11/19 06:25 BUN 7 mg/dL (7-18) 09/11/19 06:25 Creatinine 0.73 mg/dL (0.55-1.02) 09/11/19 06:25 Estimated GFR/1.73 m2 >= 60.00 (mL/min/1.73m2) 09/11/19 06:25 Glucose 127 mg/dL (74-106) H 09/11/19 06:25 Lactate 1.7 mmol/L (0.6-1.4) H 09/10/19 20:35 Calcium 8.6 mg/dL (8.5-10.1) 09/11/19 06:25 Magnesium 2.1 mg/dL (1.8-2.4) 09/08/19 07:00 Total Bilirubin 0.8 mg/dL (0.2-1.0) 09/10/19 19:50 Conjugated Bilirubin 1.38 mg/dL (0.00-0.20) H 09/05/19 06:10 AST 65 U/L (15-37) H 09/10/19 19:50 ALT 53 U/L (14-59) 09/10/19 19:50 Alkaline Phosphatase 159 U/L (46-116) H 09/10/19 19:50 Troponin I < 0.05 ng/mL (<0.06) 09/10/19 19:50 NT-Pro-B Natriuret Pep 6761 pg/mL (<300) H 09/10/19 19:50 Total Protein 6.2 g/dL (6.4-8.2) L 09/10/19 19:50 Albumin 1.9 g/dL (3.4-5.0) L 09/10/19 19:50 Triglycerides 59 mg/dL (<150) 09/05/19 06:10 Total Cholesterol 71 mg/dL (<200) 09/05/19 06:10 LDL Cholesterol, Calc 35 mg/dL (<100) 09/05/19 06:10 HDL Cholesterol 25 mg/dL (40-60) L 09/05/19 06:10 Procalcitonin 7.9 ng/mL 09/10/19 19:50 TSH 5.74 uIU/mL (0.36-3.74) H 09/05/19 06:10 Free T4 1.26 ng/dL (0.76-1.46) 09/05/19 06:10 Urine Color Yellow (Yellow) 09/07/19 15:30 Urine Clarity Sl cloudy (Clear) 09/07/19 15:30 Urine pH 5.5 (5-8) 09/07/19 15:30 Ur Specific [place] 1.025 (1.005-1.025) 09/07/19 15:30 Urine Protein Trace mg/dL (Negative) H 09/07/19 15:30 Urine Ketones Trace mg/dL (Negative) H 09/07/19 15:30 Urine Blood Trace-intact (Negative) H 09/07/19 15:30 Urine Nitrite Negative (Negative) 09/07/19 15:30 Urine Bilirubin Moderate (Negative) H 09/07/19 15:30 Urine Urobilinogen 0.2 EU/dL (Up TO 0.2) 09/07/19 15:30 Ur Leukocyte Esterase Negative (Negative) 09/07/19 15:30 Urine RBC 3-5 HPF (0-2) H 09/07/19 15:30 Urine WBC 3-5 HPF (0-5) 09/07/19 15:30 Ur Epithelial Cells Few HPF (Negative) 09/07/19 15:30 Urine Crystals Negative HPF (Negative) 09/07/19 15:30 Urine Bacteria Few HPF (Negative) 09/07/19 15:30 Urine Casts Negative LPF (Negative) 09/07/19 15:30 Urine Mucus Negative (Negative) 09/07/19 15:30 Urine Other Negative (Negative) 09/07/19 15:30 Ur Culture Indicated? C&s done as ordered 09/07/19 15:30 Urine Glucose Negative mg/dL (Negative) 09/07/19 15:30 COVID-19 PCR Negative (Negative) 09/04/19 10:00 Nasopharyn COVID-19 PCR Not Applicable 09/04/19 10:00 Ref Test [facility]form [facility] 09/04/19 10:00
--- NOTE | 2019-09-11 11:46 | W.PM.DS.N ---
Date of service: 09/11/19 Time of Service: 11:46 DS: Diagnosis Discharge Diagnosis (1) Respiratory failure: Status: Acute Asessment and Plan: Patient failed extubation yesterday required reintubation and initiation of norepinephrine drip for sepsis secondary to aspiration pneumonia. Patient be transferred to [facility] to the care of Dr. Joanna Houser. Continued supportive care w/ mechanical ventilation, diuretics, broad spectrum antibiotics (Vancomycin, Levaquin, Zosyn) (2) Aspiration pneumonia: Status: Acute Asessment and Plan: as above. (3) Difficult intravenous access: Status: Resolved Asessment and Plan: patient had CVP line placed over the weekend by Dr. Segundo (located in left subclavian) (4) Alcohol withdrawal delirium, acute, hyperactive: Status: Resolved Asessment and Plan: patient completed one week of benzodiazepines, Precedex and supplementation w/ phenobarbital (5) Hypotension: Status: Acute Asessment and Plan: secondary to sepsis. see above (6) Acute on chronic diastolic CHF (congestive heart failure), NYHA class 1: Status: Acute Asessment and Plan: Repeat echocardiogram performed September 04, 2019 demonstrated trivial circumferential pericardial effusion. No echocardiographic findings of cardiac tamponade. Left ventricular size wall thickness and systolic function was within the range of normal and is unchanged from prior echocardiogram dated September 19, 2019. Left ventricular ejection fraction is 50 to 55%. IVC collapses less than 50% with inspiration. Patient was treated with IV Lasix which was then converted to a Lasix drip at which point she finally started to achieve adequate diuresis. (7) Bilateral pleural effusion: Status: Acute (8) E. coli UTI: Status: Resolved Asessment and Plan: Urine culture from September 03, 2019 grew E. coli grade 100,000 colonies that was pansensitive. Patient was treated with Zosyn for aspiration pneumonia as well as her UTI. Follow-up urine culture from September 06 showed no growth. (9) Atrial fibrillation: Status: Chronic Asessment and Plan: Patient had acute exacerbation of her chronic atrial fibrillation that did not respond to diltiazem and Lopressor initially because of hypotension. She subsequently was digitalized. However in addition to digoxin she did require some low-dose Lopressor on a as needed basis. Patient is not chronically anticoagulated due to her medical noncompliance. During this hospitalization she did not receive systemic anticoagulation but was placed on Lovenox 40 mg subcutaneously (10) Alcohol dependence: Status: Chronic (11) Subclinical hypothyroidism: Status: Chronic (12) DVT prophylaxis: Status: Acute (13) Discharge planning issues: Status: Acute Discharge Plan Disposition Patient Disposition: [facility] Condition: Critical Discharge Details Chief Complaint: GenMedical Clinical Impression: Pericardial effusion, Chest pain, Atrial fibrillation, Pleural effusion, bacterial, Alcohol dependence Reason For Visit: alcohol withdrawal, aspiration pneumonia Admit Date/Time: 09/04/19 11:34 Admit Provider: Amy Chávez Attending Provider: Amy Chávez Primary Care Provider: Amarilys Barrera ED Provider: Bulmaro Reeder Hospital Course Hospital Course: Patient is a 59-year-old female with history of alcohol abuse including previous admissions for alcohol withdrawal, chronic atrial fibrillation not on anticoagulation secondary to medical noncompliance, chronic diastolic heart failure who initially presented emergency department with complaints of chest pain shortness of breath and leg swelling and anxiety. Patient been seen in the emergency department on multiple previous visits for similar complaints as well as left the emergency room AGAINST MEDICAL ADVICE. On the day prior to mission she had a CT of her chest that demonstrated bilateral pleural effusions and compressive atelectasis as well as moderate sized pericardial effusion. She had left the emergency department AGAINST MEDICAL ADVICE. Previous echocardiogram from August 20, 2019 showed normal left ventricular systolic function and a trivial pericardial effusion. She agreed to admission this time and was admitted to the medical/surgical floor. Over the ensuing days she developed acute alcohol withdrawal and required benzodiazepines in high doses and eventually required a Precedex drip and got transferred to the intensive care unit. She had a witnessed choking spell on September 05, 2019 and subsequently ended up in respiratory failure and became intubated on September 06, 2019. She was placed on broad-spectrum antibiotics including Zosyn which was later broadened to vancomycin and Levaquin. She remained intubated on the Grubbs ventilator and ASV mode and demonstrated improving pulmonary parameters including a successful spontaneous breathing trial on September 10, 2019. She had shown improvement in her inflammatory markers with normalization of her leukocytosis and improvement in her procalcitonin level chest x-ray continued to show basilar consolidation and a pleural effusion but clinically she seemed to be improving and had completed her course of treatment for alcohol withdrawal which included Precedex and medazepam drip as well as IV phenobarbital. On September 10, 2019 she was extubated in the morning but because of prolonged sedation was not able to adequately support her breathing and post extubation had a lot of secretions and required reintubation. Her hospitalization has been complicated by hypotension that is required norepinephrine drip in addition to the broad-spectrum antibiotics. She required a furosemide drip to manage her fluid status. On the morning of discharge she was hemodynamically stable although remained on a norepinephrine drip. Phone consultation was placed with [facility] and her case was discussed with Dr. Chong Zhang, ct scan special procedures technologist, who accepted the patient for transfer. Patient will be admitted to the service of Dr. Eliane Houser, ICU Blue team at [facility]. The patient's legal guardian, Trish Estrada (phone [phone]) was updated on the patient's condition and the need for transfer and she is in agreement with the transfer. Home Meds and New Rx's Prescriptions: No Action diltiazem HCl [Cardizem CD] 240 mg capsule,extended release 24hr 240 mg PO DAILY 60 Days Qty: 60 RF: 2 multivitamin [Multiple Vitamins] Tablet 1 tab PO DAILY Qty: 30 RF: 3 magnesium oxide 400 mg (241.3 mg magnesium) tablet 400 mg PO DAILY Qty: 30 RF: 3 cyanocobalamin (vitamin B-12) [Vitamin B-12] 500 mcg Tablet 1,000 mcg PO DAILY Qty: 30 RF: 3 aspirin 81 mg Tablet,Delayed Release (Dr/Ec) 81 mg PO DAILY Qty: 0 RF: 0 atorvastatin 40 mg tablet 40 mg PO DAILY Qty: 30 RF: 0 pantoprazole 40 mg tablet,delayed release (DR/EC) 40 mg PO DAILY Qty: 30 RF: 0 Discharge Instructions Instructions: Aspiration Pneumonia (DC), Alcohol Withdrawal (DC) Activity:: Bedrest Diet:: Other Discharge Orders Discharge Orders: Discharge Order (Routine); Ordered 09/11/19 Ordered By: Angelito Davey DS: Summary Status at Discharge Functional status at discharge: bed bound Overall status at discharge: patient is not back to baseline Mental Status: other Speech and Movement: other Mood: other Affect: other Exam Narrative Exam Narrative: Elderly female appears older than her stated age of 59. She is lightly sedated opens her eyes and moves all 4 extremities voluntarily. Lungs with scattered rhonchi bilaterally. She has diminished breath sounds at the bases posteriorly. Heart is irregularly irregular Abdomen is nondistended soft with normal active bowel sounds. Extremities with 1+ pitting edema in her hands and wrists but none in her feet and ankles. Neuro exam patient opens her eyes spontaneously looks at me and seems to follow simple commands moves all 4 extremities. GCS 11 (E4, V1t, M6), unable to assess verbal response as the patient is intubated Psych Mental Status: other Speech and Movement: other Mood: other Affect: other DS: Data Vitals/I&O Vitals and I&O: Vital Signs Temperature 36.8 C 09/11/19 07:40 Temperature Source Temporal Artery Scan 09/11/19 07:40 Pulse 77 09/11/19 11:00 Pulse 103 H 09/11/19 11:00 Respiratory Rate 17 09/11/19 11:00 Respiratory Effort Mechanically Ventilated 09/11/19 07:40 Respiratory Depth Shallow 09/10/19 15:11 Respiratory Pattern Normal 09/11/19 07:40 Blood Pressure 93/67 L 09/11/19 11:00 Blood Pressure Mean 73 09/11/19 11:00 Blood Pressure Position Supine 09/10/19 23:36 Pulse Oximetry 100 09/11/19 11:00 Respiratory End-tidal CO2 27 09/11/19 11:00 Oxygen Delivery Method Mechanical Ventilator 09/11/19 10:32 Oxygen Flow Rate 0 09/11/19 10:32 Fraction of Inspired Oxygen (FIO2) 40 09/11/19 10:44 Pain Level 0 09/10/19 23:36 Intake & Output 09/10/19 09/10/19 09/11/19 11:59 23:59 11:59 Intake Total 1983.538 3568.934 1485.396 / 3569.934 641.976 / 641.976 Output Total 200 / 3965 3765 / 3965 3505 / 3505 Balance 1784.538 / -395.066 -2279.604 / -395.066 -2863.024 / -2863.024 Weight 76.6 kg 74.6 kg Intake: IV 1983.538 / 3569.934 1485.396 / 3569.934 641.976 / 641.976 Output: Gastric Drainage 40 / 40 5 / 5 Right Nare 40 / 40 5 / 5 Urine 200 / 3225 3025 / 3225 3500 / 3500 Stool 700 / 700 Other: Urine Color Light Kesha Pale Yellow Yellow Urine Appearance Clear Clear Clear Comment ramachandran in place and draining ramachandran in place and draining, ramachandran in place and draining, Stool Size Moderate Stool Characteristics Liquid Brown Data Completed and Pending Labs on day of discharge: Labs from last 24 hours 09/11/19 09/11/19 09/11/19 07:52 06:25 06:25 WBC 10.05 RBC 3.53 L Hgb 12.6 Hct 37.3 MCV 105.7 H MCH 35.7 H MCHC 33.8 RDW 14.3 Plt Count 385 D MPV 10.4 Immature Gran % 0.3 Neutrophils % 79.5 Lymphocytes % 8.0 Monocytes % 10.6 Eosinophils % 1.1 Basophils % 0.5 Absolute Neutrophils 7.99 H Absolute Lymphocytes 0.80 L Absolute Monocytes 1.07 H Absolute Eosinophils 0.11 Absolute Basophils 0.05 Differential Comment Rbc morph reviewed RBC Morphology See below Macrocytosis 2+ ABG Sample Site Right radial ABG pH 7.47 H ABG pCO2 39 ABG pO2 182 H ABG HCO3 29 H ABG Total CO2 Not Applicable ABG O2 Saturation > 99 H ABG Base Excess 5.0 H Oxygen Liter Flow Vt 520/r 12/peep 5 FiO2 60 Sodium 142 Potassium 3.7 Chloride 105 Carbon Dioxide 29.6 Anion Gap 7.4 BUN 7 Creatinine 0.73 Estimated GFR/1.73 m2 >= 60.00 Glucose 127 H Lactate Calcium 8.6 Total Bilirubin AST ALT Alkaline Phosphatase Troponin I NT-Pro-B Natriuret Pep Total Protein Albumin Procalcitonin 09/10/19 09/10/19 09/10/19 20:45 20:35 19:50 WBC 10.02 D RBC 3.20 L Hgb 11.2 L Hct 34.5 L MCV 107.8 H MCH 35.0 H MCHC 32.5 RDW 14.4 Plt Count 272 MPV 10.3 Immature Gran % 0.2 Neutrophils % 85.3 Lymphocytes % 5.1 Monocytes % 8.9 Eosinophils % 0.2 Basophils % 0.3 Absolute Neutrophils 8.55 H Absolute Lymphocytes 0.51 L Absolute Monocytes 0.89 H Absolute Eosinophils 0.02 Absolute Basophils 0.03 Differential Comment RBC Morphology Macrocytosis ABG Sample Site ABG pH ABG pCO2 ABG pO2 ABG HCO3 ABG Total CO2 ABG O2 Saturation ABG Base Excess Oxygen Liter Flow FiO2 Sodium Potassium Chloride Carbon Dioxide Anion Gap BUN Creatinine Estimated GFR/1.73 m2 Glucose Lactate 1.7 H Calcium Total Bilirubin AST ALT Alkaline Phosphatase Troponin I NT-Pro-B Natriuret Pep Total Protein Albumin Procalcitonin 7.9 09/10/19 09/10/19 09/10/19 19:50 19:50 17:45 WBC RBC Hgb Hct MCV MCH MCHC RDW Plt Count MPV Immature Gran % Neutrophils % Lymphocytes % Monocytes % Eosinophils % Basophils % Absolute Neutrophils Absolute Lymphocytes Absolute Monocytes Absolute Eosinophils Absolute Basophils Differential Comment RBC Morphology Macrocytosis ABG Sample Site Left radial ABG pH 7.33 L ABG pCO2 47 ABG pO2 85 ABG HCO3 25 ABG Total CO2 23 ABG O2 Saturation 96 ABG Base Excess -1.4 Oxygen Liter Flow FiO2 60 Sodium 144 Potassium 4.5 Chloride 110 H Carbon Dioxide 27.6 Anion Gap 6.4 BUN 9 Creatinine 0.87 Estimated GFR/1.73 m2 >= 60.00 Glucose 114 H Lactate Calcium 8.3 L Total Bilirubin 0.8 AST 65 H ALT 53 Alkaline Phosphatase 159 H Troponin I < 0.05 NT-Pro-B Natriuret Pep 6761 H Total Protein 6.2 L Albumin 1.9 L Procalcitonin 09/10/19 17:05 WBC RBC Hgb Hct MCV MCH MCHC RDW Plt Count MPV Immature Gran % Neutrophils % Lymphocytes % Monocytes % Eosinophils % Basophils % Absolute Neutrophils Absolute Lymphocytes Absolute Monocytes Absolute Eosinophils Absolute Basophils Differential Comment RBC Morphology Macrocytosis ABG Sample Site Left radial ABG pH 7.27 L ABG pCO2 56 H ABG pO2 64 L ABG HCO3 26 ABG Total CO2 24 ABG O2 Saturation 88 L ABG Base Excess -0.8 Oxygen Liter Flow Vt 400/ peep 5/r 16 FiO2 40 Sodium Potassium Chloride Carbon Dioxide Anion Gap BUN Creatinine Estimated GFR/1.73 m2 Glucose Lactate Calcium Total Bilirubin AST ALT Alkaline Phosphatase Troponin I NT-Pro-B Natriuret Pep Total Protein Albumin Procalcitonin 09/10/19 20:45 Blood Blood Culture - Pending 09/10/19 20:35 Blood Blood Culture - Pending Preliminary micro results at discharge 09/10/19 15:30 Sputum Culture - Preliminary Sputum - Induced Normal Bria Jojo Albicans 09/10/19 20:45 Blood Culture - Pending Blood 09/10/19 20:35 Blood Culture - Pending Blood [facility] Medical History (Updated 09/11/19 @ 13:00 by Angelito Davey) Alcohol abuse (Chronic) Anxiety and depression (Inactive 08/06/14) Atrial fibrillation with rapid ventricular response (Inactive) Chronic diastolic CHF (congestive heart failure) (Acute) Opiate addiction (Inactive 08/06/14) in recovery. weaned off suboxone through [facility] 05/05/14 Pulmonary nodules (Inactive) SAH (subarachnoid hemorrhage) (Inactive) Tobacco abuse (Chronic 07/07/17) Surgical History bunionectomy (Inactive) lamontangen a few years ago 2005ish History of bilateral tubal ligation (Acute) Social History Smoking/Tobacco Use Status: Current every day Tobacco Type: cigarettes Alcohol Intake: current Alcohol Intake frequency: 0-2 drinks per day Alcohol type: beer Drug use: Never Substance use type: does not use Details: Pt reports half a beer today. Household members: significant other Do you feel safe at home: Yes Do you feel safe in your relationship?: Yes Additional Social history: Lives with long-term boyfriend Stepan in [place]. Last work at [employer] but has not worked in years. 2 adult children, including daughter in [place] and son and 2 baby grandkids and [place]
--- NOTE | 2019-09-11 16:50 | NUR.NOTE ---
1644: Trish Estrada arrived at the front entrance of [facility], this RN brought down to Trish: patients shirt, pants, Crocs (shoes) and denture cup with pt's personal rings inside, as rings were removed during this stay due to pt's hands becoming very edematous. Informed Trish to call [facility] care managers and or the ICU nurses tomorrow or am to inquire about the doctors note she is waiting for from Dr. Davey. Dr Davey reports he will write her the note as requested and he hopes to have it ready for her by tomorrow or maybe am.
--- NOTE | 2019-09-11 18:36 | NUR.NOTE ---
At 2300 pt no longer triggering her own breaths on ASV, following out original POC established from provider, called [facility]spiratory for further guidance. pt placed on AC mode on ventilator. set points approved from RT Presley Bond.
== END 2019-09-11 14:30 | disposition short-term general hospital (02) | DRG 291 ==
LOC: ER 11:56 → ICU 12:08
PROVIDERS: Family Medicine; General Practice; Admitting Provider Internal Medicine; Emergency Provider Student in an Organized Health Care Education/Training Program; PCP Nurse Practitioner; Visit Provider Internal Medicine
DX: I50.33 Acute on chronic diastolic (congestive) heart failure (principal); A41.9 Sepsis, unspecified organism; J69.0 Pneumonitis due to inhalation of food and vomit; J96.00 Acute respiratory failure, unspecified whether with hypoxia or hypercapnia; F10.231 Alcohol dependence with withdrawal delirium; I31.3 Pericardial effusion (noninflammatory); J90 Pleural effusion, not elsewhere classified; N39.0 Urinary tract infection, site not specified; I48.20 Chronic atrial fibrillation, unspecified; R07.9 Chest pain, unspecified; E87.70 Fluid overload, unspecified; F17.210 Nicotine dependence, cigarettes, uncomplicated; I95.89 Other hypotension; B96.20 Unspecified Escherichia coli [E. coli] as the cause of diseases classified elsewhere; Z91.19 Patient's noncompliance with other medical treatment and regimen; E03.8 Other specified hypothyroidism; R40.2424 Glasgow coma scale score 9-12, 24 hours or more after hospital admission; Z03.818 Encounter for observation for suspected exposure to other biological agents ruled out; E87.6 Hypokalemia; E83.42 Hypomagnesemia; R13.12 Dysphagia, oropharyngeal phase; S01.511A Laceration without foreign body of lip, initial encounter; W19.XXXA Unspecified fall, initial encounter; Y92.230 Patient room in hospital as the place of occurrence of the external cause; Z71.3 Dietary counseling and surveillance
CPT/HCPCS: 36415; 36556; 36592; 71045; 80048; 80053; 80061; 80076; 82805; 84145; 85027; 87040; 92610; 93005; 93308; 94640; 96365; 96375; 99223; 99232; 99239; 99285; 99291; J1650; NC; U0003; 36600; 70450; 70486; 72170; 74018; 76700; 81003; 81015; 83605; 83735; 83880; 84439; 84443; 84484; 85014; 85025; 85610; 85730; 87070; 87086; 87205; 93010; 93970; 94002; 94003; J0131; J1160; J1644; J1940; J1941; J1956; J2060; J2270; J2543; J2560; J2704; J2765; J3370; J3475; J3480; J3490; J7613; J7620

== ENCOUNTER 2020-04-07 11:07 | Emergency (ER) | payer MEDICARE, MEDICAID, SELFPAY ==
[2020-04-07] VITALS (41 sets, daily range): BP systolic 96–129; BP diastolic 57–79; PULSE 65–87; RESP 12–23; TEMP 36.7; O2SAT 92–98
--- NOTE | 2020-04-07 11:00 | RT.EKG_ITS ---
APPROVED REPORT Exam: Resting ECG Patient Location: E HR:67 bpm ECG Measurements Heart Rate 67 AXIS MS 194 P 69 QRSd 90 QRS 45 QT 405 T 39 QTc 428 Conclusion Sinus rhythm...normal P axis, V-rate 60- 99 Probable left atrial enlargement...P >50mS, <-0.10mV V1 Borderline ST depression, lateral leads...ST <-0.07mV, I aVL V5 V6 sinus rhythm at 67, normal axis, nonspecific ST changes, poor R wave progression, no STEMI, nondiagno stic EKG
[2020-04-07 11:46] LABS: Abs Immature Grans 0.03 10^3/uL (0.0-0.06); Absolute Basophil Count 0.09 10^3/uL (0.0-0.2); Absolute Eosinophil Count 0.19 10^3/uL (0.0-0.7); Absolute Monocyte Count 0.84 10^3/uL (0.1-0.8); Absolute Neutrophil Count 5.17 10^3/uL (1.2-6.7); Basophils % 1.1; Eosinophils % 2.4; Immature Grans % 0.4; Lymphocytes % 21.2; MCH 32.5 pg (27.0-33.0); MCHC 32.4 % (32.0-36.0); MCV 100.3 fL (80-95); MPV 9.3 fL (8.0-11.0); Monocytes % 10.5; Neutrophils % 64.4; Nucleated RBC 0 %; Platelet Count 377 10^3/uL (130-400); RBC 3.69 10^6/uL (3.93-5.22); RDW 13.6 % (11.7-14.6); RDW-SD 50.7 fL; WBC 8.02 10^3/uL (4.4-10.8)
[2020-04-07 12:16] LABS: D-Dimer 1241 ng/mlFEU (<500)
[2020-04-07 12:28] LABS: ALT 16 U/L (14-59); AST 14 U/L (15-37); Albumin 3.8 g/dL (3.4-5.0); Alkaline Phosphatase 99 U/L (46-116); Anion Gap 8.9 mmol/L (3-11); BUN 17 mg/dL (7-18); Bilirubin, Total 0.4 mg/dL (0.2-1.0); CO2 27.1 mmol/L (21.0-32.0); Calcium 9.2 mg/dL (8.5-10.1); Chloride 105 mmol/L (98-107); Estimated GFR 56.18 (mL/min/1.73m2); Glucose 98 mg/dL (74-106); NT-proBNP 857 pg/mL (<300); Potassium 4.4 mmol/L (3.5-5.1); Sodium 141 mmol/L (136-145); Total Protein 7.7 g/dL (6.4-8.2); Troponin I < 0.05 ng/mL (<0.06)
--- NOTE | 2020-04-07 12:44 | DI.RAD_ITS ---
EXAM: XR PORTABLE CHEST AP CLINICAL HISTORY: chest pain TECHNIQUE: 2D digital imaging was performed. COMPARISON: CR XR PORTABLE CHEST AP from 08/20/2019 CR,XR XR PORTABLE CHEST AP from 09/11/2019 FINDINGS: MEDIASTINUM: Normal. HEART: Normal. PULMONARY VASCULATURE: Normal. LUNGS: There is a question of an infiltrate in the left lung base. PLEURAL SPACE: No pleural effusion or pneumothorax. BONE:Within normal limits for the patient's age. OTHER FINDINGS:Normal. IMPRESSION: Possible left basilar infiltrate. A PA and lateral view of the chest is recommended for further eval uation. DATA REPOSITORY: RADIATION DOSE DELIVERED:
--- NOTE | 2020-04-07 12:56 | W.ED.GENAD ---
Discharge Plan Disposition Patient Disposition: HOME Condition: Stable Discharge Details Clinical Impression: Chest pain Primary Care Provider: Romelia Crooks ED Provider: Trish Reeder Home Meds and New Rx's Prescriptions: Continued citalopram [Celexa] 20 mg tablet 20 mg PO DAILY Qty: 90 RF: 1 diltiazem HCl [Cardizem CD] 240 mg capsule,extended release 24hr 240 mg PO DAILY Qty: 90 RF: 1 folic acid 1 mg tablet 1 mg PO DAILY Qty: 90 RF: 1 gabapentin 100 mg capsule 200 mg PO TID Qty: 540 RF: 1 lorazepam 1 mg tablet 1 mg PO BID PRN (Reason: anxiety) Qty: 60 RF: 0 metoprolol succinate [Toprol XL] 100 mg tablet extended release 24 hr 100 mg PO DAILY Qty: 90 RF: 1 pantoprazole 40 mg tablet,delayed release (DR/EC) 40 mg PO DAILY Qty: 90 RF: 1 polyethylene glycol 3350 17 gram powder in packet 17 g PO DAILY Qty: 100 RF: 1 quetiapine [Seroquel] 50 mg tablet 50 mg PO BID Qty: 180 RF: 1 trazodone 150 mg tablet See Rx Instructions PO QHS PRN (Reason: insomnia) Qty: 45 RF: 1 sennosides [Senokot] 8.6 mg tablet 8.6 mg PO DAILY Qty: 90 RF: 1 acetaminophen [Tylenol Extra Strength] 500 mg tablet 1,000 mg PO TID PRN PRNRF: 0 bisacodyl [Dulcolax (bisacodyl)] 10 mg suppository 10 mg AL DAILY PRNRF: 0 ibuprofen 800 mg tablet 800 mg PO Q6H PRNRF: 0 melatonin 3 mg tablet 6 mg PO HS PRNRF: 0 ondansetron HCl 4 mg tablet 4 mg PO Q8H PRNRF: 0 multivitamin [Multiple Vitamins] Tablet 1 tab PO DAILY Qty: 30 RF: 3 magnesium oxide 400 mg (241.3 mg magnesium) tablet 400 mg PO DAILY Qty: 30 RF: 3 cyanocobalamin (vitamin B-12) [Vitamin B-12] 500 mcg Tablet 1,000 mcg PO DAILY Qty: 30 RF: 3 aspirin 81 mg Tablet,Delayed Release (Dr/Ec) 81 mg PO DAILY Qty: 0 RF: 0 atorvastatin 40 mg tablet 40 mg PO DAILY Qty: 30 RF: 0 Discharge Instructions Instructions: Chest Pain (ED) Additional Instructions: Please return immediately to the emergency department if you develop any new or worsening symptoms, if your condition does not improve as expected, or if you become otherwise concerned. It is extremely important that you call soon as possible to make an appointment to be seen in follow-up for this visit by your primary care doctor and a cnc mill set up operator as we discussed. You will also get a phone call regarding scheduling your outpatient stress test. It is very important that you have the stress test performed. Referrals: Romelia Crooks MD [Primary Care Provider] - Baldomero Ramirez MD [ CONSULTING PHYSICIAN] - Discharge Data Discharge Date/Time-TO BE ENTERED AT DEPARTURE: 04/07/20 15:54 Medical Decision Making Shantel Bee is a 60 y/o woman who presented to the emergency department (accompanied by her guardian) with chest pain that began just prior to iniating physical therapy. Pt completed physical therapy without issue. Now symptom free, sent to ED by her guardian who cares for her daily and was concerned as chest pain is atypical for Pt. On exam Pt is well and non-toxic appearing. Benign cardiopulmonary exam. Concern for acute coronary syndrome, pulmonary embolism, acute skeletal, other. Exam/history at this time is not consistent with acute aortic pathology, sepsis, acute emergent intra-abdominal pathology. EKG shows sinus rhythm, nonspecific ST changes, no STEMI, nondiagnostic. Plan for screening labs, chest x-ray, telemetry. Plan for delta troponin, repeat EKG if initial work-up negative. Will monitor and reassess. Initial troponin negative. D-dimer elevated. Plan for CTA chest. CTA chest shows bilateral dependent infiltrates, atelectasis versus pneumonia. I had a lengthy discussion with patient and her guardian regarding this finding, patient continues to deny cough, shortness of breath, fevers. In setting of no clinical pneumonia, will hold antibiotics at this time. Repeat EKG without major change, repeat troponin negative. Patient with multiple risk factors, I discussed admission for ACS rule out with patient and her guardian. Patient and her guardian both feel strongly that they would like to go home, particularly given Covid and increased risk of infection with hospitalization. I had a lengthy discussion with patient regarding return guarding risks of leaving without full evaluation, they verbalized understanding the risk and continue for to pursue outpatient follow-up. Outpatient stress test ordered by me. I had a lengthy discussion with Patient and her guardian regarding return to emergency department precautions, home care, and importance of outpatient follow-up. Pt and her guardian verbalize understanding of the plan and are amenable. Patient discharged to home with clear plan for outpatient follow-up. All questions were answered. Disposition decision was made weighing the risks and benefits of hospitalization versus outpatient treatment, the risk for further decompensation, and the patient's wishes. Medical Records Medical records reviewed: Yes I reviewed the patient's medical records. Imaging Data Radiologic Study: Attestation: I personally reviewed and interpreted this imaging study as follows: Radiologist's impression: EXAM: XR PORTABLE CHEST AP CLINICAL HISTORY: chest pain TECHNIQUE: 2D digital imaging was performed. COMPARISON: CR XR PORTABLE CHEST AP from 08/20/2019 CR,XR XR PORTABLE CHEST AP from 09/11/2019 FINDINGS: MEDIASTINUM: Normal. HEART: Normal. PULMONARY VASCULATURE: Normal. LUNGS: There is a question of an infiltrate in the left lung base. PLEURAL SPACE: No pleural effusion or pneumothorax. BONE:Within normal limits for the patient's age. OTHER FINDINGS:Normal. IMPRESSION: Possible left basilar infiltrate. A PA and lateral view of the chest is recommended for further evaluation. EXAM: CT CHEST PE CTA CLINICAL HISTORY: chest pain. TECHNIQUE: Imaging Protocol: Axial CT angiography was performed with multi-slice acquisition and multi-planar and/or 3D reconstructions. CONTRAST MATERIAL: Intravenous: Omnipaque 350 Contrast volume:72 mL COMPARISON: CT CT CHEST PE CTA from 09/03/2019 FINDINGS: Tracheobronchial tree: Patent where visualized. Pulmonary parenchyma: There are areas of atelectasis throughout the lungs. It appears to be due to poor inspiration. Dependent opacities are seen in the lower lobes bilaterally. These may represent atelectasis or pneumonia. No architectural distortion. Pulmonary Arteries: No evidence of filling defect to suggest pulmonary emboli. Mediastinum and Jaye: No dominant adenopathy or fluid collection. Visualized thyroid gland: Unremarkable. Pleura: There is a small left pleural effusion. No right pleural effusion or pneumothorax. Heart: Marked cardiomegaly. No coronary artery calcifications are seen. No pericardial effusion. Aorta: Thoracic aorta non-dilated. Mild atherosclerosis. No evidence of dissection. Upper abdomen: Unremarkable. Soft tissues: Unremarkable. Bones: Degenerative changes are present. IMPRESSION: 1. No evidence of pulmonary embolism, thoracic aortic dissection or aneurysm. 2. Bilateral dependent infiltrates and a small left pleural effusion. This may represent atelectasis or pneumonia. Please correlate clinically. 3. Results of this exam have been verbally communicated with provider. Lab Data Lab results reviewed: Yes I reviewed the patient's lab results. Labs: Laboratory Tests Range/Units 04/07/20 04/07/20 04/07/20 11:30 11:30 11:30 WBC (4.4-10.8) 10^3/uL 8.02 RBC (3.93-5.22) 10^6/uL 3.69 L Hgb (11.2-15.7) g/dL 12.0 Hct (36.0-46.0) % 37.0 MCV (80-95) fL 100.3 H MCH (27.0-33.0) pg 32.5 MCHC (32.0-36.0) % 32.4 RDW (11.7-14.6) % 13.6 Plt Count (130-400) 10^3/uL 377 MPV (8.0-11.0) fL 9.3 Immature Gran % 0.4 Neutrophils % 64.4 Lymphocytes % 21.2 Monocytes % 10.5 Eosinophils % 2.4 Basophils % 1.1 Nucleated RBC % % 0 Absolute Neutrophils (1.2-6.7) 10^3/uL 5.17 Absolute Lymphocytes (1.2-3.4) 10^3/uL 1.70 Absolute Monocytes (0.1-0.8) 10^3/uL 0.84 H Absolute Eosinophils (0.0-0.7) 10^3/uL 0.19 Absolute Basophils (0.0-0.2) 10^3/uL 0.09 D-Dimer (<500) ng/mlFEU 1241 H Sodium (136-145) mmol/L 141 Potassium (3.5-5.1) mmol/L 4.4 Chloride (98-107) mmol/L 105 Carbon Dioxide (21.0-32.0) mmol/L 27.1 Anion Gap (3-11) mmol/L 8.9 BUN (7-18) mg/dL 17 Creatinine (0.55-1.02) mg/dL 1.0 Estimated GFR/1.73 m2 (mL/min/1.73m2) 56.18 Glucose (74-106) mg/dL 98 Calcium (8.5-10.1) mg/dL 9.2 Magnesium (1.8-2.4) mg/dL 2.0 Total Bilirubin (0.2-1.0) mg/dL 0.4 AST (15-37) U/L 14 L ALT (14-59) U/L 16 Alkaline Phosphatase (46-116) U/L 99 Troponin I (<0.06) ng/mL < 0.05 NT-Pro-B Natriuret Pep (<300) pg/mL 857 H Total Protein (6.4-8.2) g/dL 7.7 Albumin (3.4-5.0) g/dL 3.8 SARS-CoV-2 (PCR) (Negative) [place] COVID-19 PCR Ref Test Perform Site Range/Units 04/07/20 04/07/20 14:31 15:35 WBC (4.4-10.8) 10^3/uL RBC (3.93-5.22) 10^6/uL Hgb (11.2-15.7) g/dL Hct (36.0-46.0) % MCV (80-95) fL MCH (27.0-33.0) pg MCHC (32.0-36.0) % RDW (11.7-14.6) % Plt Count (130-400) 10^3/uL MPV (8.0-11.0) fL Immature Gran % Neutrophils % Lymphocytes % Monocytes % Eosinophils % Basophils % Nucleated RBC % % Absolute Neutrophils (1.2-6.7) 10^3/uL Absolute Lymphocytes (1.2-3.4) 10^3/uL Absolute Monocytes (0.1-0.8) 10^3/uL Absolute Eosinophils (0.0-0.7) 10^3/uL Absolute Basophils (0.0-0.2) 10^3/uL D-Dimer (<500) ng/mlFEU Sodium (136-145) mmol/L Potassium (3.5-5.1) mmol/L Chloride (98-107) mmol/L Carbon Dioxide (21.0-32.0) mmol/L Anion Gap (3-11) mmol/L BUN (7-18) mg/dL Creatinine (0.55-1.02) mg/dL Estimated GFR/1.73 m2 (mL/min/1.73m2) Glucose (74-106) mg/dL Calcium (8.5-10.1) mg/dL Magnesium (1.8-2.4) mg/dL Total Bilirubin (0.2-1.0) mg/dL AST (15-37) U/L ALT (14-59) U/L Alkaline Phosphatase (46-116) U/L Troponin I (<0.06) ng/mL < 0.05 NT-Pro-B Natriuret Pep (<300) pg/mL Total Protein (6.4-8.2) g/dL Albumin (3.4-5.0) g/dL SARS-CoV-2 (PCR) (Negative) Negative [place] COVID-19 PCR Not Applicable Ref Test Perform Site [facility] ECG Data Attestation: I personally reviewed and interpreted this ECG (s) as follows: Interpretation: EKG shows sinus rhythm at 67, normal axis, nonspecific ST changes, poor R wave progression, no STEMI, nondiagnostic EKG Repeat EKG shows sinus rhythm at 72, normal axis, nonspecific ST changes, no major change from prior, no STEMI, nondiagnostic EKG HPI General Date/Time Provider Initiated Documentation: 04/07/20 11:09. Limitations to Documentation: no limitations. Information obtained by: patient, RN notes reviewed and old records reviewed. HPI Narrative: Shantel Bee is a 60-year-old woman with a history of A. fib, CHF, alcoholism in the past with DTs resulting in prolonged hospitalization within the past year presenting to emergency department chest pain. Patient was released from hospitalization/rehab after delirium tremens January 2020. Patient has been going to physical therapy for 2 days a week since discharge. Patient was at physical therapy this morning when she complained of experiencing central chest pain prior to start of physical exertion. Patient was able to complete physical therapy without issue. Her blood pressure there was found to be borderline with systolic 98, although patient's guardian who accompanies her reports that that is not abnormal for the patient. Patient has been going to physical therapy regularly without complaint of chest pain. She has not complained of chest pain to her guardian in the past. Chest pain had resolved by the end of physical therapy and has not recurred. She states that she feels well and at baseline. She denies any other pain, fever, shortness of breath, cough, rash, vomiting, diarrhea, numbness, weakness. Related Data Home Medications Medication Instructions Recorded Confirmed cyanocobalamin (vitamin B-12) 1,000 mcg PO DAILY #30 tab 04/18/19 04/07/20 [Vitamin B-12] magnesium oxide 400 mg PO DAILY #30 tab 04/18/19 04/07/20 multivitamin [Multiple Vitamins] 1 tab PO DAILY #30 tab 04/18/19 04/07/20 aspirin 81 mg PO DAILY #0 tab 08/17/19 04/07/20 atorvastatin 40 mg PO DAILY #30 tab 08/17/19 04/07/20 acetaminophen 500 mg tablet 1,000 mg PO TID PRN PRN tab 02/26/20 04/07/20 bisacodyl 10 mg rectal suppository 10 mg AL DAILY PRN 02/26/20 04/07/20 ibuprofen 800 mg tablet 800 mg PO Q6H PRN tab 02/26/20 04/07/20 melatonin 3 mg tablet 6 mg PO HS PRN tab 02/26/20 04/07/20 ondansetron HCl 4 mg tablet 4 mg PO Q8H PRN 02/26/20 04/07/20 citalopram 20 mg tablet 20 mg PO DAILY #90 tab 02/27/20 04/07/20 diltiazem HCl 240 mg 240 mg PO DAILY #90 cap 02/27/20 04/07/20 capsule,extended release 24 hr folic acid 1 mg tablet 1 mg PO DAILY #90 tab 02/27/20 04/07/20 gabapentin 100 mg capsule 200 mg PO TID #540 cap 02/27/20 04/07/20 lorazepam 1 mg tablet 1 mg PO BID PRN #60 tab 02/27/20 04/07/20 metoprolol succinate 100 mg 100 mg PO DAILY #90 tab 02/27/20 04/07/20 tablet,extended release 24 hr pantoprazole 40 mg tablet,delayed 40 mg PO DAILY #90 tab 02/27/20 04/07/20 release polyethylene glycol 3350 17 gram 17 g PO DAILY #100 ea 02/27/20 04/07/20 oral powder packet quetiapine 50 mg tablet 50 mg PO BID #180 tab 02/27/20 04/07/20 sennosides 8.6 mg tablet 8.6 mg PO DAILY #90 tab 02/27/20 04/07/20 trazodone 150 mg tablet See Rx Instructions PO QHS PRN #45 02/27/20 04/07/20 tab Previous Rx's Medication Instructions Recorded cyanocobalamin (vitamin B-12) 1,000 mcg PO DAILY #30 tab 04/18/19 [Vitamin B-12] magnesium oxide 400 mg PO DAILY #30 tab 04/18/19 multivitamin [Multiple Vitamins] 1 tab PO DAILY #30 tab 04/18/19 aspirin 81 mg PO DAILY #0 tab 08/17/19 atorvastatin 40 mg PO DAILY #30 tab 08/17/19 citalopram 20 mg tablet 20 mg PO DAILY #90 tab 02/27/20 diltiazem HCl 240 mg 240 mg PO DAILY #90 cap 02/27/20 capsule,extended release 24 hr folic acid 1 mg tablet 1 mg PO DAILY #90 tab 02/27/20 gabapentin 100 mg capsule 200 mg PO TID #540 cap 02/27/20 lorazepam 1 mg tablet 1 mg PO BID PRN #60 tab 02/27/20 metoprolol succinate 100 mg 100 mg PO DAILY #90 tab 02/27/20 tablet,extended release 24 hr pantoprazole 40 mg tablet,delayed 40 mg PO DAILY #90 tab 02/27/20 release polyethylene glycol 3350 17 gram 17 g PO DAILY #100 ea 02/27/20 oral powder packet quetiapine 50 mg tablet 50 mg PO BID #180 tab 02/27/20 sennosides 8.6 mg tablet 8.6 mg PO DAILY #90 tab 02/27/20 trazodone 150 mg tablet See Rx Instructions PO QHS PRN #45 02/27/20 tab Allergies Allergy/AdvReac Type Severity Reaction Status Date / Time No Known Allergies Allergy Verified 04/07/20 11:19 General Stated Complaint: Chest Pain DANNY: 2 Review of Systems Narrative: Constitutional: denies fevers Eyes: denies eye pain ENT: denies ear pain, dental pain, sore throat Cardiovascular: denies edema, reports chest pain as per HPI Respiratory: denies SOB, cough GI: denies abdominal pain, vomiting, diarrhea : denies flank pain MSK: denies back pain, neck pain, arthralgias, myalgias Skin: denies rash Neuro: denies headaches, numbness, weakness [facility] Medical History Alcohol abuse Anxiety and depression (08/06/14) Atrial fibrillation with rapid ventricular response Chronic diastolic CHF (congestive heart failure) Depression History of alcohol abuse Lower extremity weakness Opiate addiction (08/06/14) in recovery. weaned off suboxone through [facility] 05/05/14 Pulmonary nodules SAH (subarachnoid hemorrhage) Tobacco abuse (07/07/17) Surgical History bunionectomy lamontangen a few years ago 2005ish History of bilateral tubal ligation Family History Mother Diabetes Essential hypertension Personal history of malignant neoplasm lung, breast CA Father No problems noted. Sister Essential hypertension Sister No problems noted. Brother No problems noted. Maternal Aunt Personal history of malignant neoplasm breast Social History Smoking/Tobacco Use Status: Current every day Tobacco Type: cigarettes Smoking risk assessment performed?: Yes Alcohol Intake: former Drug use: Never Substance use type: does not use Details: Pt reports half a beer today. Household members: significant other Do you feel safe at home: Yes Do you feel safe in your relationship?: Yes Additional Social history: Lives with long-term boyfriend Stepan in [place]. Last work at [employer] but has not worked in years. 2 adult children, including daughter in [place] and son and 2 baby grandkids and [place] Exam Narrative Exam Narrative: Constitutional: well and [id number], pleasant, conversing normally HENT: head atraumatic/normocephalic/normal inspection, mucous membranes moist Eyes: conjunctiva normal, sclera normal, pupils 3mm b/l Neck: no stridor, normal ROM, trachea midline Chest: normal inspection Resp: normal work of breathing, LCTAB Cardio: normal rate, normal rhythm, no murmur appreciated GI: abdomen soft, non-tender, non-distended Skin: warm, dry, normal color, no rash Neuro: alert, not altered, grossly non-focal, normal tone Ext: no edema, no posterior calf TTP Psych: normal mood, normal affect, normal behavior Course Vital Signs Vital signs: Vital Signs Temperature 36.7 C 04/07/20 11:13 Pulse 69 04/07/20 11:13 Respiratory Rate 18 04/07/20 11:13 Blood Pressure 117/75 04/07/20 11:13 Pulse Oximetry 97 04/07/20 11:13 Temperature 36.7 C 04/07/20 11:13 Temperature Source Temporal Artery Scan 04/07/20 11:13 Pulse 68 04/07/20 12:15 Pulse 68 04/07/20 12:15 Respiratory Rate 14 04/07/20 12:15 Respiratory Effort Non-Labored 04/07/20 11:20 Blood Pressure 121/72 04/07/20 12:15 Blood Pressure Mean 84 04/07/20 12:15 Blood Pressure Position Supine 04/07/20 11:13 Pulse Oximetry 93 04/07/20 12:15 Oxygen Delivery Method Room Air 04/07/20 11:13 Oxygen Flow Rate 0 04/07/20 11:13 Pain Level 0 04/07/20 11:13 Lab/Test Results Lab/Test Results: Laboratory Tests Range/Units 04/07/20 04/07/20 04/07/20 11:30 11:30 11:30 WBC (4.4-10.8) 10^3/uL 8.02 RBC (3.93-5.22) 10^6/uL 3.69 L Hgb (11.2-15.7) g/dL 12.0 Hct (36.0-46.0) % 37.0 MCV (80-95) fL 100.3 H MCH (27.0-33.0) pg 32.5 MCHC (32.0-36.0) % 32.4 RDW (11.7-14.6) % 13.6 Plt Count (130-400) 10^3/uL 377 MPV (8.0-11.0) fL 9.3 Immature Gran % 0.4 Neutrophils % 64.4 Lymphocytes % 21.2 Monocytes % 10.5 Eosinophils % 2.4 Basophils % 1.1 Nucleated RBC % % 0 Absolute Neutrophils (1.2-6.7) 10^3/uL 5.17 Absolute Lymphocytes (1.2-3.4) 10^3/uL 1.70 Absolute Monocytes (0.1-0.8) 10^3/uL 0.84 H Absolute Eosinophils (0.0-0.7) 10^3/uL 0.19 Absolute Basophils (0.0-0.2) 10^3/uL 0.09 D-Dimer (<500) ng/mlFEU 1241 H Sodium (136-145) mmol/L 141 Potassium (3.5-5.1) mmol/L 4.4 Chloride (98-107) mmol/L 105 Carbon Dioxide (21.0-32.0) mmol/L 27.1 Anion Gap (3-11) mmol/L 8.9 BUN (7-18) mg/dL 17 Creatinine (0.55-1.02) mg/dL 1.0 Estimated GFR/1.73 m2 (mL/min/1.73m2) 56.18 Glucose (74-106) mg/dL 98 Calcium (8.5-10.1) mg/dL 9.2 Magnesium (1.8-2.4) mg/dL 2.0 Total Bilirubin (0.2-1.0) mg/dL 0.4 AST (15-37) U/L 14 L ALT (14-59) U/L 16 Alkaline Phosphatase (46-116) U/L 99 Troponin I (<0.06) ng/mL < 0.05 NT-Pro-B Natriuret Pep (<300) pg/mL 857 H Total Protein (6.4-8.2) g/dL 7.7 Albumin (3.4-5.0) g/dL 3.8
[2020-04-07] MEDS: Normal Saline - Diluent 50 ML VIAL IV (13:31)
[2020-04-07] MEDS: Omnipaque 350 MG/ML 100 ML BTL 72 ML IJ (13:32)
--- NOTE | 2020-04-07 13:42 | DI.CT_ITS ---
EXAM: CT CHEST PE CTA CLINICAL HISTORY: chest pain. TECHNIQUE: Imaging Protocol: Axial CT angiography was performed with multi-slice acquisition and mu lti-planar and/or 3D reconstructions. CONTRAST MATERIAL: Intravenous: Omnipaque 350 Contrast volume:72 mL COMPARISON: CT CT CHEST PE CTA from 09/03/2019 FINDINGS: Tracheobronchial tree: Patent where visualized. Pulmonary parenchyma: There are areas of atelectasis throughout the lungs. It appears to be due to p oor inspiration. Dependent opacities are seen in the lower lobes bilaterally. These may represent a telectasis or pneumonia. No architectural distortion. Pulmonary Arteries: No evidence of filling defect to suggest pulmonary emboli. Mediastinum and Jaye: No dominant adenopathy or fluid collection. Visualized thyroid gland: Unremarkable. Pleura: There is a small left pleural effusion. No right pleural effusion or pneumothorax. Heart: Marked cardiomegaly. No coronary artery calcifications are seen. No pericardial effusion. Aorta: Thoracic aorta non-dilated. Mild atherosclerosis. No evidence of dissection. Upper abdomen: Unremarkable. Soft tissues: Unremarkable. Bones: Degenerative changes are present. IMPRESSION: 1. No evidence of pulmonary embolism, thoracic aortic dissection or aneurysm. 2. Bilateral dependent infiltrates and a small left pleural effusion. This may represent atelectasis or pneumonia. Please correlate clinically. 3. Results of this exam have been verbally communicated with provider. RADIATION DOSE DELIVERED: 551.88mGy.cm Total DLP DATA REPOSITORY: All CT scans at this facility are submitted to the National Radiology Data Registry (NRDR) Dose Index Registry (DIR) with the [employer] (ACR). RADIATION OPTIMIZATION: All CT scans at this facility use at least one of these dose optimization te chniques: automated exposure control; mA and/or kV adjustment per patient size (includes targeted exa ms where dose is matched to clinical indication); or iterative reconstruction.
--- NOTE | 2020-04-07 14:15 | RT.EKG_ITS ---
APPROVED REPORT Exam: Resting ECG Patient Location: E HR:72 bpm ECG Measurements Heart Rate 72 AXIS IA 202 P 60 QRSd 88 QRS 45 QT 404 T 29 QTc 444 Conclusion Sinus rhythm...normal P axis, V-rate 60- 99 sinus rhythm at 72, normal axis, nonspecific ST changes, no major change from prior, no STEMI, nondia gnostic EKG
[2020-04-07 15:11] LABS: Troponin I < 0.05 ng/mL (<0.06)
--- NOTE | 2020-04-07 17:52 | NUR.NOTE ---
REFERRAL FAXED TO CARDIOLOGY FOR CP F/U REQUISTION FAXED FOR TREADMILL STRESS TEST.Nursing Note:
[2020-04-08 18:21] LABS: COVID-19 RT-PCR UVMMC Result Negative (Negative)
--- NOTE | 2020-04-09 08:48 | NUR.NOTE ---
Nursing Note: [id number]--message left on phone
--- NOTE | 2020-04-09 19:18 | NUR.NOTE ---
Negative Covid result reported off to Trish Estrada on 04/09/2020 @ [facility]
== END 2020-04-07 15:54 | disposition home or self-care (01) ==
PROVIDERS: Emergency Provider Student in an Organized Health Care Education/Training Program; PCP Internal Medicine
DX: R07.81 Pleurodynia (principal); I95.9 Hypotension, unspecified; Z03.818 Encounter for observation for suspected exposure to other biological agents ruled out
CPT/HCPCS: 36415; 71275; 80053; 93005; 99285; U0003; U0005; 71045; 83735; 83880; 84484; 85025; 85379; 93010; 99284; J3490

== ENCOUNTER 2020-04-14 13:03 | Outpatient (CLI) | payer MEDICARE, MEDICAID, SELFPAY ==
--- NOTE | 2020-04-14 14:00 | ETT_ITS ---
APPROVED REPORT Exam: Exercise Treadmill Patient Location: Out-Patient Room/Bed: Stress Nurse: Nehal Alonzo RN Ordering Provider:SLIME FELDMAN, Contact Number: [phone] BMI: 29.49 Baseline Rhythm: Sinus Rhythm Indications: Chest pain Medical History Medical History: Afib, CHF, anxiety, depression, stroke, L side weakness Cardiac Medications: Diltiazem/ Cardizem, metoprolol, pantoprazole, ondansetron, aspirin, atorvastati n Allergies: NKA Cardiac Risk Factors: Hypertension, smoker (current), family hx Previous Cardiac Procedures: None Pretest Chest Pain Characteristics: None Exercise History: Sedentary Physical Disabilities: L side deficits Lung Sounds: Clear to auscultation Heart Sounds: Regular Stress Test Details Test: Exercise stress testing was performed using a Jhonny protocol. Rest Stress HR Resting HR Supine: 77 bpm Max Heart Rate (APMHR): 158 bpm Resting HR Standin bpm Target HR (85% APMHR): 134 bpm Max HR Achieved: 102 bpm % of APMHR: 64 Recovery HR: 74 bpm HR response to stress: Normal HR response to stress BP Resting BP Supine: 128/70 mmHg Resting BP Standin/64 mmHg Max BP: 138/62 mmHg Recovery BP: 132/64 mmHg BP response to stress: Normal blood pressure response to stress. ECG Resting ECG: Sinus Rhythm Ectopy: PVC Stress ECG: Sinus Tachycardia ST Change: No significant ST segment changes noted Arrhythmia: None Recovery ECG: Sinus Rhythm Recovery ST Change: No significant ST segment changes noted Recovery Arrhythmia: Occassional PACs and PVCs Clinical Reason for Termination: Fatigue Stress Symptoms: General Fatigue Exercise duration: 3 min08 sec Highest Stage Reached: Stage 2: 2.5 mph at 12% grade. Exercise capacity: 4.79 METs Guerra Treadmill Score: 3 Rate Pressure Product: 54201 Stress ECG Conclusion 1. The patient exercised for 3 minutes (5 METS). Exercise was stopped due to fatigue. 2. The patient was unable to achieve greater than 85% of maximum predicted heart rate. 3. At this level of stress there was no evidence of ischemia on the ECG portion of the exam. 4. This represents an adequate stress test. If concern for ischemia remains high consider pharmacolo gical stress alternatives. Guerra Treadmill Score is 3 which is Moderate risk. Stress Test Summary STAGE Time (mins) Speed (mph) Grade (%) HR BP SYMPTOMS METS Supine 77 128/70 Standing 81 122/64 1 3 1.7 10 98 4.6 1 min recovery 93 138/62 3 min recovery 74 132/64
== END 2020-04-14 13:04 ==
LOC: DI 13:05
PROVIDERS: PCP Internal Medicine; Visit Provider Student in an Organized Health Care Education/Training Program
DX: R07.9 Chest pain, unspecified (principal); I10 Essential (primary) hypertension; F17.210 Nicotine dependence, cigarettes, uncomplicated; Z82.49 Family history of ischemic heart disease and other diseases of the circulatory system
CPT/HCPCS: 93016; 93018; 93017

== ENCOUNTER → 2020-05-02 10:43 | Outpatient (BNVA) | payer MEDICARE, MEDICAID, SELFPAY | PROVIDERS: PCP Internal Medicine; Referring Provider Internal Medicine; Visit Provider Internal Medicine Cardiovascular Disease | DX: R07.89 Other chest pain (principal); I48.91 Unspecified atrial fibrillation; I51.89 Other ill-defined heart diseases; J44.9 Chronic obstructive pulmonary disease, unspecified; F17.210 Nicotine dependence, cigarettes, uncomplicated | CPT/HCPCS: 99204; 99214 ==

== ENCOUNTER 2020-07-13 11:26 | Inpatient (IN) | payer MEDICARE, MEDICAID, SELFPAY ==
[2020-07-13] VITALS (120 sets, daily range): BP systolic 78–172; BP diastolic 49–152; PULSE 68–213; RESP 9–34; TEMP 36.7–38.8; O2SAT 89–96
--- NOTE | 2020-07-13 11:27 | ED.GENADUL_ITS ---
Discharge Plan Disposition Patient Disposition: [facility] Condition: Serious Discharge Details Chief Complaint: Abd Prob Clinical Impression: Pyelonephritis, OLIMPIA (acute kidney injury) Primary Care Provider: Romelia Crooks ED Provider: Angelito Inman Home Meds and New Rx's Prescriptions: No Action citalopram [Celexa] 20 mg tablet 20 mg PO DAILY Qty: 90 RF: 1 diltiazem HCl [Cardizem CD] 240 mg capsule,extended release 24hr 240 mg PO DAILY Qty: 90 RF: 1 folic acid 1 mg tablet 1 mg PO DAILY Qty: 90 RF: 1 gabapentin 100 mg capsule 200 mg PO TID Qty: 540 RF: 1 metoprolol succinate [Toprol XL] 100 mg tablet extended release 24 hr 100 mg PO DAILY Qty: 90 RF: 1 pantoprazole 40 mg tablet,delayed release (DR/EC) 40 mg PO DAILY Qty: 90 RF: 1 polyethylene glycol 3350 17 gram powder in packet 17 g PO DAILY Qty: 100 RF: 1 quetiapine [Seroquel] 50 mg tablet 50 mg PO BID Qty: 180 RF: 1 trazodone 150 mg tablet See Rx Instructions PO QHS PRN (Reason: insomnia) Qty: 45 RF: 1 sennosides [Senokot] 8.6 mg tablet 8.6 mg PO DAILY Qty: 90 RF: 1 acetaminophen [Tylenol Extra Strength] 500 mg tablet 1,000 mg PO TID PRN PRNRF: 0 bisacodyl [Dulcolax (bisacodyl)] 10 mg suppository 10 mg NV DAILY PRNRF: 0 ibuprofen 800 mg tablet 800 mg PO Q6H PRNRF: 0 melatonin 3 mg tablet 6 mg PO HS PRNRF: 0 ondansetron HCl 4 mg tablet 4 mg PO Q8H PRNRF: 0 lorazepam 1 mg tablet 1 mg PO BID PRN (Reason: anxiety) Qty: 4 RF: 0 multivitamin [Multiple Vitamins] Tablet 1 tab PO DAILY Qty: 30 RF: 3 cyanocobalamin (vitamin B-12) [Vitamin B-12] 500 mcg Tablet 1,000 mcg PO DAILY Qty: 30 RF: 3 aspirin 81 mg Tablet,Delayed Release (Dr/Ec) 81 mg PO DAILY Qty: 0 RF: 0 atorvastatin 40 mg tablet 40 mg PO DAILY Qty: 30 RF: 0 Medical Decision Making 60-year-old female, past medical history of alcohol abuse, sober since August, alcohol dementia, CVA, CHF, hypertension, depression, anxiety, presenting to the ER today for what she describes as abdominal pain going on approximately 2 weeks worsening over the past couple of days. Her niece, data collector, also reports generalized weakness and an altered mental status described increased confusion. Denies any obvious focal deficit but is concerned about CVA given her history. Clinically she does have abdominal pain, diffuse. Initial blood pressure 147/65, pulse 98, respirations 28, afebrile. Plan is to obtain IV access, obtain laboratory values including a single troponin, EKG, chest x-ray, CT imaging of head, and likely CT imaging of abdomen pelvis given her chief complaint. Will give 1 L IV Initial laboratory values reveal a white blood cell count of 26.14, lactate of 2.2. I have added on blood cultures, will obtain a second point of IV access, give a second liter of IV fluid. Laboratory values reveal a creatinine of 3.4 with a GFR of 13.6. Will obtain CT imaging without IV contrast of the abdomen and pelvis. Initial urinalysis was contaminated. Will obtain a second urinalysis Repeat urinalysis reveals small leuk esterase, 5-10 red and white cells with many bacteria. Culture pending Head CT and chest x-ray both read by radiology is unremarkable. CT imaging of the abdomen and pelvis revealed findings suspicion for bilateral pyelonephritis and cystitis. Given the likely diagnosis of bilateral pyelonephritis, will initiate IV Levaquin. Patient has 2 lines of IV access, most recent blood pressure 99/52. Patient is receiving her second liter of IV fluid. She still appears to be mentating normally. Will place a call to our hospitalist team to discuss admission. Case discussed with Dr. Davey at 1422. He states that he would like the patient placed in the ICU, needs to check on ICU bed status. Most recent blood pressure 113/61 I received a call back from our hospitalist team, plan is to admit to our ICU but will hold in the ER until availability in the ICU. Medical Records Medical records reviewed: Yes I reviewed the patient's medical records. Lab Data Lab results reviewed: Yes I reviewed the patient's lab results. Labs: 07/13/20 14:00 Blood Blood Culture - Pending 07/13/20 13:30 Blood Blood Culture - Pending 07/13/20 13:20 Urine - Reflex from Ua Urine Culture - Pending Laboratory Tests Range/Units 07/13/20 07/13/20 07/13/20 11:45 11:45 11:45 WBC (4.4-10.8) 10^3/uL RBC (3.93-5.22) 10^6/uL Hgb (11.2-15.7) g/dL Hct (36.0-46.0) % MCV (80-95) fL MCH (27.0-33.0) pg MCHC (32.0-36.0) % RDW (11.7-14.6) % Plt Count (130-400) 10^3/uL MPV (8.0-11.0) fL Immature Gran % Neutrophils % Band Neutrophils % Lymphocytes % Monocytes % Eosinophils % Basophils % Metamyelocytes % Myelocytes % Nucleated RBC % % Absolute Neutrophils (1.2-6.7) 10^3/uL Absolute Lymphocytes (1.2-3.4) 10^3/uL Absolute Monocytes (0.1-0.8) 10^3/uL Absolute Eosinophils (0.0-0.7) 10^3/uL Absolute Basophils (0.0-0.2) 10^3/uL RBC Morphology Polychromasia PT Cancelled INR Cancelled APTT Cancelled VBG Lactate (0.6-1.4) mmol/L 2.2 H* Sodium (136-145) mmol/L Potassium (3.5-5.1) mmol/L Chloride (98-107) mmol/L Carbon Dioxide (21.0-32.0) mmol/L Anion Gap (3-11) mmol/L BUN (7-18) mg/dL Creatinine (0.55-1.02) mg/dL Estimated GFR/1.73 m2 (mL/min/1.73m2) Glucose (74-106) mg/dL Calcium (8.5-10.1) mg/dL Magnesium (1.8-2.4) mg/dL Total Bilirubin (0.2-1.0) mg/dL AST (15-37) U/L ALT (14-59) U/L Alkaline Phosphatase (46-116) U/L Troponin I (<0.06) ng/mL Total Protein (6.4-8.2) g/dL Albumin (3.4-5.0) g/dL Lipase (73-393) U/L 91 Urine Color (Yellow) Urine Clarity (Clear) Urine pH (5-8) Ur Specific [place] (1.005-1.025) Urine Protein (Negative) mg/dL Urine Ketones (Negative) mg/dL Urine Blood (Negative) Urine Nitrite (Negative) Urine Bilirubin (Negative) Urine Urobilinogen (Up TO 0.2) EU/dL Ur Leukocyte Esterase (Negative) Urine RBC (0-2) HPF Urine WBC (0-5) HPF Ur Epithelial Cells (Negative) HPF Urine Crystals (Negative) HPF Urine Bacteria (Negative) HPF Urine Casts (Negative) LPF Urine Mucus (Negative) Ur Culture Indicated? Urine Glucose (Negative) mg/dL Range/Units 07/13/20 07/13/20 07/13/20 11:45 11:45 12:10 WBC (4.4-10.8) 10^3/uL 26.14 H* RBC (3.93-5.22) 10^6/uL 3.72 L Hgb (11.2-15.7) g/dL 12.1 Hct (36.0-46.0) % 35.2 L MCV (80-95) fL 94.6 MCH (27.0-33.0) pg 32.5 MCHC (32.0-36.0) % 34.4 RDW (11.7-14.6) % 13.2 Plt Count (130-400) 10^3/uL 271 MPV (8.0-11.0) fL 10.2 Immature Gran % See Differential Neutrophils % 86.0 Band Neutrophils % 4 Lymphocytes % 2.0 Monocytes % 3.0 Eosinophils % 1.0 Basophils % 1.0 Metamyelocytes % 2 Myelocytes % 1 Nucleated RBC % % 0 Absolute Neutrophils (1.2-6.7) 10^3/uL 23.53 H Absolute Lymphocytes (1.2-3.4) 10^3/uL 0.52 L Absolute Monocytes (0.1-0.8) 10^3/uL 0.78 Absolute Eosinophils (0.0-0.7) 10^3/uL 0.26 Absolute Basophils (0.0-0.2) 10^3/uL 0.26 H RBC Morphology See below Polychromasia Present PT INR APTT VBG Lactate (0.6-1.4) mmol/L Sodium (136-145) mmol/L 136 Potassium (3.5-5.1) mmol/L 3.9 Chloride (98-107) mmol/L 100 Carbon Dioxide (21.0-32.0) mmol/L 23.4 Anion Gap (3-11) mmol/L 12.6 H BUN (7-18) mg/dL 46 H Creatinine (0.55-1.02) mg/dL 3.4 H Estimated GFR/1.73 m2 (mL/min/1.73m2) 13.69 Glucose (74-106) mg/dL 162 H Calcium (8.5-10.1) mg/dL 8.4 L Magnesium (1.8-2.4) mg/dL 1.8 Total Bilirubin (0.2-1.0) mg/dL 0.9 AST (15-37) U/L 23 ALT (14-59) U/L 20 Alkaline Phosphatase (46-116) U/L 109 Troponin I (<0.06) ng/mL < 0.05 Total Protein (6.4-8.2) g/dL 7.7 Albumin (3.4-5.0) g/dL 2.8 L Lipase (73-393) U/L Urine Color (Yellow) Yellow Urine Clarity (Clear) Sl cloudy Urine pH (5-8) 5.5 Ur Specific [place] (1.005-1.025) 1.025 Urine Protein (Negative) mg/dL 100 H Urine Ketones (Negative) mg/dL Trace H Urine Blood (Negative) Small H Urine Nitrite (Negative) Negative Urine Bilirubin (Negative) Small H Urine Urobilinogen (Up TO 0.2) EU/dL 1.0 H Ur Leukocyte Esterase (Negative) Small H Urine RBC (0-2) HPF 5-10 H Urine WBC (0-5) HPF 5-10 Ur Epithelial Cells (Negative) HPF Moderate Urine Crystals (Negative) HPF Rare amorphous Urine Bacteria (Negative) HPF Moderate Urine Casts (Negative) LPF 3-5 coarse granular Urine Mucus (Negative) Trace Ur Culture Indicated? No/sq. contamination Urine Glucose (Negative) mg/dL Negative Range/Units 07/13/20 07/13/20 12:15 13:20 WBC (4.4-10.8) 10^3/uL RBC (3.93-5.22) 10^6/uL Hgb (11.2-15.7) g/dL Hct (36.0-46.0) % MCV (80-95) fL MCH (27.0-33.0) pg MCHC (32.0-36.0) % RDW (11.7-14.6) % Plt Count (130-400) 10^3/uL MPV (8.0-11.0) fL Immature Gran % Neutrophils % Band Neutrophils % Lymphocytes % Monocytes % Eosinophils % Basophils % Metamyelocytes % Myelocytes % Nucleated RBC % % Absolute Neutrophils (1.2-6.7) 10^3/uL Absolute Lymphocytes (1.2-3.4) 10^3/uL Absolute Monocytes (0.1-0.8) 10^3/uL Absolute Eosinophils (0.0-0.7) 10^3/uL Absolute Basophils (0.0-0.2) 10^3/uL RBC Morphology Polychromasia PT 10.9 INR 1.1 APTT 31.3 H VBG Lactate (0.6-1.4) mmol/L Sodium (136-145) mmol/L Potassium (3.5-5.1) mmol/L Chloride (98-107) mmol/L Carbon Dioxide (21.0-32.0) mmol/L Anion Gap (3-11) mmol/L BUN (7-18) mg/dL Creatinine (0.55-1.02) mg/dL Estimated GFR/1.73 m2 (mL/min/1.73m2) Glucose (74-106) mg/dL Calcium (8.5-10.1) mg/dL Magnesium (1.8-2.4) mg/dL Total Bilirubin (0.2-1.0) mg/dL AST (15-37) U/L ALT (14-59) U/L Alkaline Phosphatase (46-116) U/L Troponin I (<0.06) ng/mL Total Protein (6.4-8.2) g/dL Albumin (3.4-5.0) g/dL Lipase (73-393) U/L Urine Color (Yellow) Yellow Urine Clarity (Clear) Sl cloudy Urine pH (5-8) 5.5 Ur Specific [place] (1.005-1.025) 1.020 Urine Protein (Negative) mg/dL 100 H Urine Ketones (Negative) mg/dL Negative Urine Blood (Negative) Small H Urine Nitrite (Negative) Negative Urine Bilirubin (Negative) Negative Urine Urobilinogen (Up TO 0.2) EU/dL 1.0 H Ur Leukocyte Esterase (Negative) Small H Urine RBC (0-2) HPF 5-10 H Urine WBC (0-5) HPF 5-10 Ur Epithelial Cells (Negative) HPF Rare Urine Crystals (Negative) HPF Rare amorphous Urine Bacteria (Negative) HPF Many Urine Casts (Negative) LPF 3-5 coarse granular Urine Mucus (Negative) Trace Ur Culture Indicated? Yes Urine Glucose (Negative) mg/dL Negative ECG Data Attestation: I personally reviewed and interpreted this ECG (s) as follows: Interpretation: Please see official report by Dr. Farfan. Sinus rhythm, ventricular rate of 89. Q waves present. No STEMI HPI General Mode of arrival: ambulatory . Date/Time Provider Initiated Documentation: 07/13/20 11:26 . Limitations to Documentation: no limitations . Information obtained by: patient and family . HPI Narrative: This is a 60-year-old female, who presents with her data collector, her niece, whom she lives with. Patient has a past medical history that includes CHF, alcohol abuse, sober since last August, anxiety, depression, atrial fibrillation, CVA last August. She presents today with multiple complaints. First she reports epigastric discomfort that has been present for approximately 2 weeks, worse over the past few days. Denies recent sick exposure, travel, bad food exposure. Reports that nothing makes the pain worse or better. Denies chest pain, fever, nausea, vomiting or diarrhea, constipation, dysuria, back pain. She has eaten less over the past week or so but reports this is because her appetite is decreased. In triage she reported chills but denies chills to me. Unable to speak with her niece in greater length, she also reports that she seems to be may be slightly more confused over the past several days compared to her baseline. There is no focal neurologic deficit. Given her history of CVA she is concerned about this as well. Patient is not anticoagulated as she has a history of alcohol abuse and was a fall risk. Denies any past abdominal surgical history. Related Data Home Medications Medication Instructions Recorded Confirmed cyanocobalamin (vitamin B-12) 1,000 mcg PO DAILY #30 tab 04/18/19 07/13/20 [Vitamin B-12] multivitamin [Multiple Vitamins] 1 tab PO DAILY #30 tab 04/18/19 07/13/20 aspirin 81 mg PO DAILY #0 tab 08/17/19 07/13/20 atorvastatin 40 mg PO DAILY #30 tab 08/17/19 07/13/20 acetaminophen 500 mg tablet 1,000 mg PO TID PRN PRN tab 02/26/20 07/13/20 bisacodyl 10 mg rectal suppository 10 mg NV DAILY PRN 02/26/20 07/13/20 ibuprofen 800 mg tablet 800 mg PO Q6H PRN tab 02/26/20 07/13/20 melatonin 3 mg tablet 6 mg PO HS PRN tab 02/26/20 07/13/20 ondansetron HCl 4 mg tablet 4 mg PO Q8H PRN 02/26/20 07/13/20 citalopram 20 mg tablet 20 mg PO DAILY #90 tab 02/27/20 07/13/20 diltiazem HCl 240 mg 240 mg PO DAILY #90 cap 02/27/20 07/13/20 capsule,extended release 24 hr folic acid 1 mg tablet 1 mg PO DAILY #90 tab 02/27/20 07/13/20 gabapentin 100 mg capsule 200 mg PO TID #540 cap 02/27/20 07/13/20 metoprolol succinate 100 mg 100 mg PO DAILY #90 tab 02/27/20 07/13/20 tablet,extended release 24 hr pantoprazole 40 mg tablet,delayed 40 mg PO DAILY #90 tab 02/27/20 07/13/20 release polyethylene glycol 3350 17 gram 17 g PO DAILY #100 ea 02/27/20 07/13/20 oral powder packet quetiapine 50 mg tablet 50 mg PO BID #180 tab 02/27/20 07/13/20 sennosides 8.6 mg tablet 8.6 mg PO DAILY #90 tab 02/27/20 07/13/20 trazodone 150 mg tablet See Rx Instructions PO QHS PRN #45 02/27/20 07/13/20 tab lorazepam 1 mg tablet 1 mg PO BID PRN #4 tab 05/28/20 07/13/20 Previous Rx's Medication Instructions Recorded cyanocobalamin (vitamin B-12) 1,000 mcg PO DAILY #30 tab 04/18/19 [Vitamin B-12] multivitamin [Multiple Vitamins] 1 tab PO DAILY #30 tab 04/18/19 aspirin 81 mg PO DAILY #0 tab 08/17/19 atorvastatin 40 mg PO DAILY #30 tab 08/17/19 citalopram 20 mg tablet 20 mg PO DAILY #90 tab 02/27/20 diltiazem HCl 240 mg 240 mg PO DAILY #90 cap 02/27/20 capsule,extended release 24 hr folic acid 1 mg tablet 1 mg PO DAILY #90 tab 02/27/20 gabapentin 100 mg capsule 200 mg PO TID #540 cap 02/27/20 metoprolol succinate 100 mg 100 mg PO DAILY #90 tab 02/27/20 tablet,extended release 24 hr pantoprazole 40 mg tablet,delayed 40 mg PO DAILY #90 tab 02/27/20 release polyethylene glycol 3350 17 gram 17 g PO DAILY #100 ea 02/27/20 oral powder packet quetiapine 50 mg tablet 50 mg PO BID #180 tab 02/27/20 sennosides 8.6 mg tablet 8.6 mg PO DAILY #90 tab 02/27/20 trazodone 150 mg tablet See Rx Instructions PO QHS PRN #45 02/27/20 tab lorazepam 1 mg tablet 1 mg PO BID PRN #4 tab 05/28/20 Allergies Allergy/AdvReac Type Severity Reaction Status Date / Time No Known Allergies Allergy Verified 07/13/20 11:36 General DANNY: 2 Review of Systems Constitutional Constitutional: Denies fatigue, Denies fever(s) and Denies headache(s) Eyes Eyes: Denies change in vision ENT Ears, Nose, Mouth, and Throat: Denies headache(s) and Denies neck pain Cardiovascular Cardiovascular: Denies chest pain and Denies dyspnea Respiratory Respiratory: Denies cough and Denies dyspnea Gastrointestinal Gastrointestinal: Reports abdominal pain, Denies constipation, Denies diarrhea, Denies nausea and Denies vomiting Genitourinary Genitourinary: Denies dysuria Musculoskeletal Musculoskeletal: Denies back pain and Denies neck pain Integumentary/Breasts Skin/Breast: Denies rash Neurologic Neurologic: Denies headache(s) and Reports weakness (General) Endocrine Endocrine: Denies fatigue Hematologic/Lymphatic Hematologic/Lymphatic: Denies easy bleeding and Denies easy bruising REPLACED BY [facility] Medical History Acute exacerbation of CHF (congestive heart failure) Alcohol abuse Alcohol abuse Alcohol withdrawal delirium, acute, hyperactive Anxiety and depression (08/06/14) Aspiration pneumonia Atrial fibrillation Atrial fibrillation with rapid ventricular response Bilateral pleural effusion Chest pain Chronic diastolic CHF (congestive heart failure) Depression History of alcohol abuse Lip laceration Lower extremity weakness Medical non-compliance Opiate addiction (08/06/14) in recovery. weaned off suboxone through [facility] 05/05/14 Pericardial effusion Pericardial effusion Pulmonary nodules Respiratory failure SAH (subarachnoid hemorrhage) Subclinical hypothyroidism Tobacco abuse (07/07/17) Surgical History bunionectomy lamontangen a few years ago 2005ish History of bilateral tubal ligation Family History Mother Diabetes Essential hypertension Personal history of malignant neoplasm lung, breast CA Father No problems noted. Sister Essential hypertension Sister No problems noted. Brother No problems noted. Maternal Aunt Personal history of malignant neoplasm breast Social History Smoking/Tobacco Use Status: Current every day Tobacco Type: cigarettes Smoking risk assessment performed?: Yes Alcohol Intake: former Drug use: Never Substance use type: does not use Details: Pt reports half a beer today. Household members: family Number of Children: 2 Communication Needs: Corrective Lenses Education Level: high school Do you need help understanding health information?: Often Current gender identity: female What is your relationship status?: Panel score (0-1 are the most socially isolated patients): 0 Seatbelt use: always Working smoke detector in home: Yes Fire extinguisher in home: Yes Carbon monox detector in home: Yes Do you feel safe at home: Yes Do you feel safe in your relationship?: Yes Exam Const General: cooperative and healthy appearing Orientation: alert, awake, oriented to person and oriented to place [facility] Head: normal to inspection, normocephalic and atraumatic Face and sinus: normal facial exam Mouth: moist mucous membranes and moist mucous membranes abnormal (Slightly dry) Eyes General: appearance normal, both eyes and all related structures Conjunctivae: conjunctivae normal Neck Neck: normal visual inspection, full ROM, trachea midline, supple and nontender Resp Effort & Inspection: normal respiratory effort, able to speak in complete sentences and tachypneic (Mild) Auscultation: clear to auscultation bilaterally Cardio Rate: regular rate Rhythm: regular rhythm GI Inspection: normal to inspection Palpation: soft, not firm, no guarding, no pulsatile masses and tender (Diffuse) with no rebound tenderness Auscultation: normal bowel sounds Back/Spine/Pelvis Back: No back tenderness Skin General skin exam: no rashes or lesions noted Neuro General: patient alert, patient awake, moves all extremities and no focal motor deficits Cognition: normal cognition Speech: speech normal Motor: muscle tone normal throughout Sensory Exam: no sensory deficits noted Extrem General: normal to inspection, full ROM and capillary refill normal Psych Appearance: grossly normal Mental Status: mental status grossly normal Critical Care Time Critical Care Time Critical Care Time: Yes Total Critical Care Time: 35
--- NOTE | 2020-07-13 11:30 | DI.RAD_ITS ---
Exam(s) XR CHEST 2V PA LATERAL EXAM: XR CHEST 2V PA LATERAL CLINICAL HISTORY: epigastric pain. TECHNIQUE: 2D digital imaging was performed. COMPARISON: CR XR PORTABLE CHEST AP from 04/07/2020 FINDINGS: Heart size upper normal-mild cardiomegaly. Unchanged. Mediastinum is not widened. The previously p resent infiltrate in the left lung is less evident on the present study. Presently no obvious infilt rates. No pleural effusions. No pulmonary edema. Lungs are clear. No infiltrates nor pleural effusions. IMPRESSION: No acute pulmonary findings. DATA REPOSITORY: RADIATION DOSE DELIVERED:
--- NOTE | 2020-07-13 11:30 | RT.EKG_ITS ---
APPROVED REPORT Exam: Resting ECG Reason for Exam: epigastric pain Patient Location: E HR:89 bpm ECG Measurements Heart Rate 89 AXIS NE 143 P 64 QRSd 87 QRS 43 QT 352 T 32 QTc 429 Conclusion Sinus rhythm. Probable left atrial enlargement. Q waves, T neg, V1-V2
--- NOTE | 2020-07-13 11:30 | DI.CT_ITS ---
Exam(s) CT HEAD WO EXAM: CT HEAD WO CLINICAL HISTORY: confusion. TECHNIQUE: Imaging Protocol: Axial computed tomography images with coronal and sagittal reformatted images were created and reviewed COMPARISON: CT CT FACIAL WO from 09/06/2019 FINDINGS: There are no skull fractures nor fluid in the visualized paranasal sinuses. There is mild mucosal t hickening in the posterior floor of the left maxillary sinus. No associated fluid level. No bone de struction. There is no evidence of intracranial hemorrhage, mass effect, or shift of midline structures. There are no extra-axial fluid collections. The ventricles are not enlarged or shifted and there is no blo od within the ventricular system nor within the basal cisterns. IMPRESSION: No acute intracranial findings on this noninfused CT scan of the brain. RADIATION DOSE DELIVERED: 777.12mGy.cm Total DLP DATA REPOSITORY: All CT scans at this facility are submitted to the National Radiology Data Registry (NRDR) Dose Index Registry (DIR) with the [employer] (ACR). RADIATION OPTIMIZATION: All CT scans at this facility use at least one of these dose optimization te chniques: automated exposure control; mA and/or kV adjustment per patient size (includes targeted exa ms where dose is matched to clinical indication); or iterative reconstruction.
[2020-07-13] MEDS: Normal Saline Flush 10 ML SYR IVP ×2 (11:45→20:10)
[2020-07-13] MEDS: Normal Saline 1,000 ML 125 ML IV (11:45)
[2020-07-13 12:06] LABS: Abs Immature Grans 0.63 10^3/uL (0.0-0.06); HCT 35.2 % (36.0-46.0); HGB 12.1 g/dL (11.2-15.7); MCH 32.5 pg (27.0-33.0); MCHC 34.4 % (32.0-36.0); MCV 94.6 fL (80-95); MPV 10.2 fL (8.0-11.0); Nucleated RBC 0 %; RBC 3.72 10^6/uL (3.93-5.22); RDW 13.2 % (11.7-14.6); RDW-SD 45.6 fL
[2020-07-13 12:12] LABS: Lactate 2.2 mmol/L (0.6-1.4)
[2020-07-13 12:14] LABS: Lipase 91 U/L (73-393)
--- NOTE | 2020-07-13 12:15 | DI.CT_ITS ---
Exam(s) CT ABDOMEN PELVIS WO EXAM: CT ABDOMEN PELVIS WO CLINICAL HISTORY: epigastric pain, wbc 22, lactate 2.2, creat 3.4. TECHNIQUE: Imaging Protocol: Axial computed tomography images with coronal and sagittal reformatted images were created and reviewed CONTRAST MATERIAL: Intravenous: none Oral: None COMPARISON: CT CT CHEST PE CTA from 04/07/2020 FINDINGS: VISUALIZED LUNG BASES: Mild pleural based infiltrate noted in the posterior basal segments of both lo wer lobes, slightly more prominent on the left side. No associated pleural effusions evident.. ABDOMEN: There is no ascites. LIVER: There are no obvious focal hepatic lesions evident of this noninfused study. GALLBLADDER/BILIARY: No obvious gallbladder pathology. CBD is not dilated. PANCREAS: No evidence of pancreatic mass nor dilatation of the pancreatic duct. SPLEEN: Spleen is not enlarged. No obvious intrasplenic lesions. ADRENALS: There is a small calcification the medial limb of the right adrenal gland. No mass. Left adrenal gland also partially calcified. KIDNEYS:Some streaking is noted around both kidneys. No cysts. No solid renal masses. No calculi n or hydronephrosis. No hydroureter.. Urinary bladder is not distended but contains some air in the a nterior lumen. ABDOMINAL AORTA: Calcified but not enlarged. LYMPH NODES: There is no retroperitoneal nor paraaortic adenopathy. ABDOMINAL WALL: No evidence of significant anterior abdominal wall hernia. GI: There is no evidence of bowel obstruction, free air, nor abscess. PELVIS: LYMPH NODES: There is no intrapelvic nor inguinal adenopathy. GI: No evidence of appendicitis.There are a few sigmoid diverticula but no evidence of acute divertic ulitis. URINARY BLADDER: Gas bubbles therein noted. REPRODUCTIVE: There is a partially calcified mass in the uterus measuring 6 x 6 cm. This is located in the posterior myometrium. Appears to contain psammomatous type calcifications. No free fluid. N o other adnexal findings. OSSEOUS: No significant osseous lesions. IMPRESSION: 1. On this non few study there is soft tissue streaking around both kidneys, suspicious for infectiou s etiology such as pyelonephritis. There are no calculi nor hydronephrosis of the kidneys. No obvio us masses nor cysts. 2. Some air is seen in the anterior aspect of the urinary bladder. Correlation the any instrumentati on/catheterization recommended 3. There is a large 6 x 6 cm partially calcified mass in the posterior upper myometrium of the uterus which is probably a large uterine fibroid. Recommend follow-up ultrasound. There are no abnormal a dnexal masses. No free fluid in the pelvis. RADIATION DOSE DELIVERED: 1,163.01mGy.cm Total DLP DATA REPOSITORY: All CT scans at this facility are submitted to the National Radiology Data Registry (NRDR) Dose Index Registry (DIR) with the [employer] (ACR). RADIATION OPTIMIZATION: All CT scans at this facility use at least one of these dose optimization te chniques: automated exposure control; mA and/or kV adjustment per patient size (includes targeted exa ms where dose is matched to clinical indication); or iterative reconstruction.
[2020-07-13 12:19] LABS: WBC 26.14 10^3/uL (4.4-10.8)
[2020-07-13 12:21] LABS: ALT 20 U/L (14-59); AST 23 U/L (15-37); Albumin 2.8 g/dL (3.4-5.0); Alkaline Phosphatase 109 U/L (46-116); Anion Gap 12.6 mmol/L (3-11); BUN 46 mg/dL (7-18); Bilirubin, Total 0.9 mg/dL (0.2-1.0); CO2 23.4 mmol/L (21.0-32.0); CREATININE 3.4 mg/dL (0.55-1.02); Calcium 8.4 mg/dL (8.5-10.1); Chloride 100 mmol/L (98-107); Estimated GFR 13.69 (mL/min/1.73m2); Glucose 162 mg/dL (74-106); Magnesium 1.8 mg/dL (1.8-2.4); Potassium 3.9 mmol/L (3.5-5.1); Sodium 136 mmol/L (136-145); Total Protein 7.7 g/dL (6.4-8.2); Troponin I < 0.05 ng/mL (<0.06)
[2020-07-13 12:26] LABS: Bilirubin Small (Negative); Blood Small (Negative); Clarity Sl Cloudy (Clear); Glucose Negative (Negative); Ketones Trace mg/dL (Negative); Leukocyte Esterase Small (Negative); Nitrite Negative (Negative); Specific Gravity 1.025 (1.005-1.025); pH 5.5 (5-8)
[2020-07-13 12:32] LABS: INR 1.1 (0.9-1.1); PTT Activated 31.3 sec (21.0-27.5); Prothrombin Time 10.9 sec (9.3-11.0)
[2020-07-13 12:36] LABS: Absolute Neutrophil Count 23.53 10^3/uL (1.2-6.7); Bands % 4; Platelet Count 271 10^3/uL (130-400)
[2020-07-13 12:37] LABS: Absolute Basophil Count 0.26 10^3/uL (0.0-0.2); Absolute Eosinophil Count 0.26 10^3/uL (0.0-0.7); Absolute Lymphocyte Count 0.52 10^3/uL (1.2-3.4); Absolute Monocyte Count 0.78 10^3/uL (0.1-0.8); Diff Comment Manual Differential; Metamyelocytes % 2; Myelocytes % 1
[2020-07-13 12:38] LABS: Polychromasia Present
[2020-07-13 12:42] LABS: Bacteria Moderate HPF (Negative); C & S Indicated? No/Sq. Contamination; Casts 3-5 Coarse Granular LPF (Negative); Crystals Rare Amorphous HPF (Negative); Epithelial Cells Moderate HPF (Negative); Mucus Trace (Negative)
[2020-07-13] MEDS: Normal Saline 1,000 ML 1000 ML IV ×2 (12:45→18:07)
[2020-07-13 13:26] LABS: Bilirubin Negative (Negative); Blood Small (Negative); Clarity Sl Cloudy (Clear); Glucose Negative (Negative); Ketones Negative (Negative); Leukocyte Esterase Small (Negative); Nitrite Negative (Negative); pH 5.5 (5-8)
[2020-07-13 13:34] LABS: Bacteria Many HPF (Negative); C & S Indicated? Yes; Casts 3-5 Coarse Granular LPF (Negative); Crystals Rare Amorphous HPF (Negative); Epithelial Cells Rare HPF (Negative); Mucus Trace (Negative)
--- NOTE | 2020-07-13 13:35 | DI.VRAD_ITS ---
PROCEDURE INFORMATION: Exam: CT Head Without Contrast Exam date and time: 07/13/2020 11:47 AM Age: 60 years old Clinical indication: Other: Confusion TECHNIQUE: Imaging protocol: Computed tomography of the head without contrast. Radiation optimization: All CT scans at this facility use at least one of these dose optimization techniques: automated exposure control; mA and/or kV adjustment per patient size (includes targeted exams where dose is matched to clinical indication); or iterative reconstruction. COMPARISON: CT HEAD WO 09/05/2019 8:28 PM FINDINGS: Brain: mild cerebral volume loss. No convincing evidence of an acute infarct. No acute intracranial hemorrhage. basal ganglia calcifications. Cerebral ventricles: no hydrocephalus. Bones/joints: No acute skull fracture Paranasal sinuses: Clear Mastoid air cells: Clear Auditory system: Large amount of cerumen both external auditory canals. Orbital cavity: Globes and orbits intact. Vasculature: Vascular calcifications. Soft tissues: Unremarkable superficial soft tissues IMPRESSION: No acute intracranial process. Dictated and Authenticated by: Donnie Jo MD. Ordering:MICH Eaton MD
--- NOTE | 2020-07-13 13:35 | DI.VRAD_ITS ---
Addendum created by Rama Fox MD on 07/13/2020 2:11:55 PM EDT: Addendum: Benign-appearing periosteal elevation proximal anterior left femur, only partially included on acquired images but the portion that is seen appears unchanged from 08/16/2019 CT. This could be from previous trauma. Correlate with clinical history. Conventional radiographs of the femur would be helpful in further evaluation. Initial report created on 07/13/2020 1:35:21 PM EDT: PROCEDURE INFORMATION: Exam: CT Abdomen And Pelvis Without Contrast Exam date and time: 07/13/2020 12:25 PM Age: 60 years old Clinical indication: Other: Epigastric pain, wbc 22, lactate 2.2, creat 3.4 TECHNIQUE: Imaging protocol: Computed tomography of the abdomen and pelvis without contrast. Radiation optimization: All CT scans at this facility use at least one of these dose optimization techniques: automated exposure control; mA and/or kV adjustment per patient size (includes targeted exams where dose is matched to clinical indication); or iterative reconstruction. COMPARISON: CT CHEST PE ABD PELVIS W 08/16/2019 11:09 AM FINDINGS: Images are degraded by motion. Lungs: Dependent atelectasis in the posterior lungs. Mediastinal space: Small esophageal hiatal hernia. Liver: Normal. No mass. Gallbladder and bile ducts: Normal. No calcified stones. No ductal dilation. Pancreas: Normal. No ductal dilation. Spleen: Normal. No splenomegaly. Adrenal glands: Benign calcification both adrenal glands consistent with old hemorrhage. Kidneys and ureters: Bilateral perinephric soft tissue stranding. Bilateral periureteric soft tissue stranding. Stomach and bowel: Unremarkable. No obstruction. No mucosal thickening. Appendix: No evidence of appendicitis. Intraperitoneal space: Unremarkable. No free air. No significant fluid collection. Vasculature: Vascular calcifications. No aneurysm identified. Lymph nodes: Unremarkable. No enlarged lymph nodes. Urinary bladder: Few tiny pockets of gas in the nondependent urinary bladder. This could be due to previous instrumentation or infection. Reproductive: Fibroid uterus. Approximately 5.5 cm calcified uterine fibroid. Bones/joints: Degenerative arthritis in the spine and pelvis. Soft tissues: Unremarkable. IMPRESSION: 1. Findings suspicious for bilateral pyelonephritis and cystitis. No urinary stones nor urinary obstruction identified. Exam limited by lack of IV contrast. 2. Fibroid uterus Dictated and Authenticated by: Rama Fox MD. Ordering:MICH Eaton MD
--- NOTE | 2020-07-13 13:36 | DI.VRAD_ITS ---
PROCEDURE INFORMATION: Exam: XR Chest Exam date and time: 07/13/2020 11:47 AM Age: 60 years old Clinical indication: Other: Epigastric pain TECHNIQUE: Imaging protocol: XR of the chest. Views: 2 views. COMPARISON: CR XR PORTABLE CHEST AP 04/07/2020 12:32 PM FINDINGS: Lungs: Slight atelectasis or scar in the left costophrenic angle. Pleural spaces: Unremarkable. No pleural effusion. No pneumothorax. Heart/Mediastinum: Unremarkable. No cardiomegaly. Vasculature: A minimal aortic calcifications. Bones/joints: Degenerative arthritis spine and shoulders. IMPRESSION: No acute findings. Dictated and Authenticated by: Rama Fox MD. Ordering:MICH Eaton MD
[2020-07-13] MEDS: levoFLOXacin 750 MG/150 ML BAG 100 MG IVPB (14:10)
[2020-07-13] MEDS: Normal Saline 250 ML IV (15:57)
[2020-07-13] MEDS: Acetaminophen 500 MG TAB 1000 MG PO (15:57)
--- NOTE | 2020-07-13 17:56 | HPE_ITS ---
Date of service: 07/13/20 Time of Service: 17:57 Assessment and Plan Assessment and plan (1) Sepsis: Status: Acute Assessment and plan: Broad-spectrum antibiotics to cover for pyelonephritis with sepsis. Including meropenem and vancomycin. Aggressive IV fluid hydration. Patient's blood pressure did not come over the next liter of fluid and she will be started on norepinephrine. Qualifiers: Sepsis type: sepsis due to unspecified organism Sepsis acute organ dysfunction status: with acute organ dysfunction Severe sepsis acute organ dysfunction type: acute renal failure Acute renal failure type: unspecified Severe sepsis shock status: unspecified Qualified Code(s): A41.9 - Sepsis, unspecified organism; R65.20 - Severe sepsis without septic shock; N17.9 - Acute kidney failure, unspecified (2) Pyelonephritis: Status: Acute Assessment and plan: Hemodynamic support as above along with broad- spectrum antibiotics as listed above. (3) OLIMPIA (acute kidney injury): Status: Acute Assessment and plan: Aggressive IV fluid hydration and hemodynamic support. Monitor urine output with Peterson catheter. Daily monitoring of her BMP. Avoid nephrotoxins including NSAIDs. Use Tylenol for her fever. (4) Dementia associated with alcoholism: Status: Chronic Assessment and plan: Patient's baseline since returning home from her acute hospital stay last summer has been moderate cognitive deficits. Apparently with the acute infection she was acting more confused than usual. We will closely monitor this and if there is any sign of worsening of neurologic symptoms or acute confusion does not improve with treatment of her infection we will get another MRI to see if there is been a recent CVA. Qualifiers: Dementia behavioral disturbance: without behavioral disturbance Qualified Code(s): F10.27 - Alcohol dependence with alcohol-induced persisting dementia (5) History of CVA (cerebrovascular accident): Status: Chronic Assessment and plan: Continue aspirin therapy. Monitor for any worsening neurologic symptoms. (6) Atrial fibrillation with rapid ventricular response: Status: Acute Assessment and plan: Apparently the patient had been evaluated and deemed not to be a candidate for chronic anticoagulation. She has been maintained on aspirin 81 mg daily along with extended release diltiazem 240 mg daily Toprol-XL 100 mg daily. Because of her low blood pressure I am not going to renew either of these at the present time but I ordered as needed dosing short acting IV diltiazem to control atrial fibrillation rate. However first we need to fully resuscitated with IV fluids. (7) DVT prophylaxis: Status: Acute Assessment and plan: Heparin subcutaneously 5000 units every 12 hours. SCD and TIKI brandon History of Present Illness History of Present Illness Chief Complaint: Acute confusion, generalized weakness, abdominal pain Narrative: 60-year-old white female with history of a lcohol abuse currently in remission since she was hospitalized for acute respiratory failure and alcohol withdrawal September 04, 2019 through September 11, 2019 at [facility] subsequently transferred to [facility] for treatment of acute respiratory failure for aspiration pneumonia secondary to acute alcohol withdrawal. She spent much of the summer at [facility] and subsequently went to the acute alcohol treatment inpatient facility in [facility] and was discharged back to [place] to the care of her niece. She has suffered from cognitive impairment secondary to alcoholic dementia as well as CVA. She has chronic atrial fibrillation for which she is not anticoagulated. She has a history of diastolic congestive heart failure. Last echocardiogram at this facility was from September 04, 2019 showed trivial circumferential pericardial effusion left ventricular systolic function was within normal with an EF of 50 to 55%. Since her prolonged hospitalization and subsequent prolonged rehab stay she has had problems with urinary incontinence felt to be due to prolonged Peterson catheter placement. Her PCP had been working on voiding trials. Patient has had history of recurrent UTIs now presents to emergency department with acute abdominal pain of 2 weeks duration worsening over the last 2 days. She has also had generalized weakness and acute mental status changes including increased confusion noted by her niece who is her director zone with whom the patient lives with. Initially on the arrival she was hemodynamically stable with a blood pressure 147/65 and a pulse of 98 which was mildly tachypneic with a respiratory rate of 28. She was initially afebrile. Shortly after arrival she became hypotensive and dropped her systolic pressure in the 80s and 90s diastolic pressures in the 50s. She also became mildly tachycardic with heart rate in the 110s in atrial fibrillation. When she developed a fever of 38.8. Work-up in the emergency department included routine labs including CBC, CMP, urinalysis, blood lactate, troponin high level, pro time APTT. Blood cultures and urine cultures were obtained. CBC was remarkable for white count 26,000 with no anemia. CMP was remarkable for acute kidney injury with a BUN of 46 and creatinine 3.4. LFTs were within normal limits. Pro time and INR were normal. Activated PTT was mildly elevated 31.3. Nasal swab for SARS-CoV-2 is pending at this time. Urinalysis was suspicious for UTI with cloudy yellow urine that is concentrated with specific gravity 1.020 with 100 mg/dL protein small amount of blood with 5-10 red cells and 5-10 white cells per high-power field with many bacteria. Ketones were negative nitrates were negative. Lipase was normal. CT of the head was done because of acute mental status change and showed no acute intracranial findings. CT of the abdomen pelvis showed soft tissue streaking around both kidneys suspicious for pyelonephritis. No calculi and no hydrone phrosis and no renal cysts or masses were seen. Patient was noted to have a 6 x 6 cm partially calcified mass in the posterior upper myometrium of the uterus consistent with a large uterine fibroid. No free air was seen in the pelvis or abdomen. Gallbladder and pancreas liver and spleen and adrenal glands are all unremarkable. Treatment in the emergency department consisted of GI cocktail along with saline bolus 1000 mL and a gauze milligrams of acetaminophen and the patient was started on Levaquin 750 mg IV. Toshia AbdiHennyARPAN, called the about admission and was found that she was hemodynamically unstable it was decided to admit her to the intensive care unit. Because the medical ICU was full at the time of his phone call for admission to the ICU was delayed while we work to use the patient is out of the ICU. Upon arrival to the medical ICU patient was hypotensive with systolic pressure in the high 70s to low 80s. She was tachycardic with heart rate in the 110s in atrial fibrillation. She denies any shortness of breath and denies any chest pain and she is not hypoxemic. She does admit to left flank pain epigastric pain. Saline bolus of 1000 mL is being given rapidly over 60 minutes. This will be followed by another liter of saline but if she is not responsive to this that she will require norepinephrine to maintain a map of 65 mm or greater. Review of Systems All systems reviewed & are unremarkable except as noted in HPI and below Constitutional Constitutional: Reports as per HPI, Reports body ache(s), Denies chills, Reports poor appetite and Reports weakness Eyes Eyes: Reports system reviewed and no additional complaints, except as documented ENT Ears, Nose, Mouth, and Throat: Reports system reviewed and no additional complaints, except as documented Cardiovascular Cardiovascular: Reports system reviewed and no additional complaints, except as documented, Denies chest pain, Denies lightheadedness and Denies dyspnea Respiratory Respiratory: Denies chest congestion, Denies cough and Denies dyspnea Gastrointestinal Gastrointestinal: Reports abdominal pain (Epigastric) Genitourinary Genitourinary: Denies hematuria, Denies difficulty voiding, Reports post void dribbling, Denies dysuria and Reports urinary incontinence Musculoskeletal Musculoskeletal: Reports back pain (Left flank pain) Integumentary/Breasts Skin/Breast: Reports system reviewed and no additional complaints, except as documented Neurologic Neurologic: Reports confusion, Reports memory loss and Reports weakness Psychiatric Psychiatric: Reports confusion and Reports memory loss Endocrine Endocrine: Reports system reviewed and no additional complaints, except as documented Hematologic/Lymphatic Hematologic/Lymphatic: Reports system reviewed and no additional complaints, except as documented Allergic/Immunologic Allergic/Immunologic: Reports system reviewed and no additional complaints, except as documented [facility] Medical History Acute exacerbation of CHF (congestive heart failure) Alcohol abuse Alcohol abuse Alcohol withdrawal delirium, acute, hyperactive Anxiety and depression (08/06/14) Aspiration pneumonia Atrial fibrillation Atrial fibrillation with rapid ventricular response Bilateral pleural effusion Chest pain Chronic diastolic CHF (congestive heart failure) Depression History of alcohol abuse Lip laceration Lower extremity weakness Medical non-compliance Opiate addiction (08/06/14) in recovery. weaned off suboxone through [facility] 05/05/14 Pericardial effusion Pericardial effusion Pulmonary nodules Respiratory failure SAH (subarachnoid hemorrhage) Subclinical hypothyroidism Tobacco abuse (07/07/17) Surgical History bunionectomy lamontangen a few years ago 2005ish History of bilateral tubal ligation Family History Mother Diabetes Essential hypertension Personal history of malignant neoplasm lung, breast CA Father No problems noted. Sister Essential hypertension Sister No problems noted. Brother No problems noted. Maternal Aunt Personal history of malignant neoplasm breast Social History Smoking/Tobacco Use Status: Current every day Tobacco Type: cigarettes Smoking risk assessment performed?: Yes Alcohol Intake: former Drug use: Never Substance use type: does not use Details: Pt reports half a beer today. Household members: family Number of Children: 2 Communication Needs: Corrective Lenses Education Level: high school Do you need help understanding health information?: Often Current gender identity: female What is your relationship status?: Panel score (0-1 are the most socially isolated patients): 0 Seatbelt use: always Working smoke detector in home: Yes Fire extinguisher in home: Yes Carbon monox detector in home: Yes Do you feel safe at home: Yes Do you feel safe in your relationship?: Yes Meds Allergies and Home Medications Allergies Allergy/AdvReac Type Severity Reaction Status Date / Time No Known Allergies Allergy Verified 07/13/20 11:36 Home Medications Medication Instructions Recorded Confirmed Type cyanocobalamin (vitamin B-12) 1,000 mcg PO DAILY #30 tab 04/18/19 07/13/20 Rx [Vitamin B-12] multivitamin [Multiple Vitamins] 1 tab PO DAILY #30 tab 04/18/19 07/13/20 Rx aspirin 81 mg PO DAILY #0 tab 08/17/19 07/13/20 Rx atorvastatin 40 mg PO DAILY #30 tab 08/17/19 07/13/20 Rx acetaminophen 500 mg tablet 1,000 mg PO TID PRN PRN tab 02/26/20 07/13/20 History bisacodyl 10 mg rectal suppository 10 mg LA DAILY PRN 02/26/20 07/13/20 History ibuprofen 800 mg tablet 800 mg PO Q6H PRN tab 02/26/20 07/13/20 History melatonin 3 mg tablet 6 mg PO HS PRN tab 02/26/20 07/13/20 History ondansetron HCl 4 mg tablet 4 mg PO Q8H PRN 02/26/20 07/13/20 History citalopram 20 mg tablet 20 mg PO DAILY #90 tab 02/27/20 07/13/20 Rx diltiazem HCl 240 mg 240 mg PO DAILY #90 cap 02/27/20 07/13/20 Rx capsule,extended release 24 hr folic acid 1 mg tablet 1 mg PO DAILY #90 tab 02/27/20 07/13/20 Rx gabapentin 100 mg capsule 200 mg PO TID #540 cap 02/27/20 07/13/20 Rx metoprolol succinate 100 mg 100 mg PO DAILY #90 tab 02/27/20 07/13/20 Rx tablet,extended release 24 hr pantoprazole 40 mg tablet,delayed 40 mg PO DAILY #90 tab 02/27/20 07/13/20 Rx release polyethylene glycol 3350 17 gram 17 g PO DAILY #100 ea 02/27/20 07/13/20 Rx oral powder packet quetiapine 50 mg tablet 50 mg PO BID #180 tab 02/27/20 07/13/20 Rx sennosides 8.6 mg tablet 8.6 mg PO DAILY #90 tab 02/27/20 07/13/20 Rx trazodone 150 mg tablet See Rx Instructions PO QHS PRN #45 02/27/20 07/13/20 Rx tab lorazepam 1 mg tablet 1 mg PO BID PRN #4 tab 05/28/20 07/13/20 Rx Exam Narrative Exam Narrative: Obese female who is alert at least superficially oriented to person place and will not to times circumstance. Patient admits that she is forgetful declines all history tenderness. HEENT is unremarkable. Neck is supple nontender no meningismus normal range of motion normal carotid pulses no bruits no thyromegaly no cervical lymphadenopathy. Lungs are clear to auscultation. Heart is tachycardic irregular no appreciable murmur rub. No palpable thrill. Abdomen is obese soft moderate epigastric tenderness. Positive left flank pain. Bowel sounds are present. No bruits. No palpable masses no organomegaly. Extremities without peripheral cyanosis or edema. No calf tenderness or swelling. Neuro exam is nonfocal and obvious cognitive deficits including memory loss and some mild confusion is no focal motor deficits in either upper or lower extremities no focal sensory deficits to light touch. No facial asymmetry no dysarthric speech full extraocular motions intact. No gross visual field deficits. Results Labs Result diagrams: 07/13/20 11:45 07/13/20 11:45 Labs: Laboratory Results - last 24 hr 07/13/20 07/13/20 07/13/20 11:45 11:45 11:45 WBC RBC Hgb Hct MCV MCH MCHC RDW Plt Count MPV Immature Gran % Neutrophils % Band Neutrophils % Lymphocytes % Monocytes % Eosinophils % Basophils % Metamyelocytes % Myelocytes % Nucleated RBC % Absolute Neutrophils Absolute Lymphocytes Absolute Monocytes Absolute Eosinophils Absolute Basophils RBC Morphology Polychromasia PT Cancelled INR Cancelled APTT Cancelled VBG Lactate 2.2 H* Sodium Potassium Chloride Carbon Dioxide Anion Gap BUN Creatinine Estimated GFR/1.73 m2 Glucose Calcium Magnesium Total Bilirubin AST ALT Alkaline Phosphatase Troponin I Total Protein Albumin Lipase 91 Urine Color Urine Clarity Urine pH Ur Specific [place] Urine Protein Urine Ketones Urine Blood Urine Nitrite Urine Bilirubin Urine Urobilinogen Ur Leukocyte Esterase Urine RBC Urine WBC Ur Epithelial Cells Urine Crystals Urine Bacteria Urine Casts Urine Mucus Ur Culture Indicated? Urine Glucose 07/13/20 07/13/20 07/13/20 11:45 11:45 12:10 WBC 26.14 H* RBC 3.72 L Hgb 12.1 Hct 35.2 L MCV 94.6 MCH 32.5 MCHC 34.4 RDW 13.2 Plt Count 271 MPV 10.2 Immature Gran % See Differential Neutrophils % 86.0 Band Neutrophils % 4 Lymphocytes % 2.0 Monocytes % 3.0 Eosinophils % 1.0 Basophils % 1.0 Metamyelocytes % 2 Myelocytes % 1 Nucleated RBC % 0 Absolute Neutrophils 23.53 H Absolute Lymphocytes 0.52 L Absolute Monocytes 0.78 Absolute Eosinophils 0.26 Absolute Basophils 0.26 H RBC Morphology See below Polychromasia Present PT INR APTT VBG Lactate Sodium 136 Potassium 3.9 Chloride 100 Carbon Dioxide 23.4 Anion Gap 12.6 H BUN 46 H Creatinine 3.4 H Estimated GFR/1.73 m2 13.69 Glucose 162 H Calcium 8.4 L Magnesium 1.8 Total Bilirubin 0.9 AST 23 ALT 20 Alkaline Phosphatase 109 Troponin I < 0.05 Total Protein 7.7 Albumin 2.8 L Lipase Urine Color Yellow Urine Clarity Sl cloudy Urine pH 5.5 Ur Specific [place] 1.025 Urine Protein 100 H Urine Ketones Trace H Urine Blood Small H Urine Nitrite Negative Urine Bilirubin Small H Urine Urobilinogen 1.0 H Ur Leukocyte Esterase Small H Urine RBC 5-10 H Urine WBC 5-10 Ur Epithelial Cells Moderate Urine Crystals Rare amorphous Urine Bacteria Moderate Urine Casts 3-5 coarse granular Urine Mucus Trace Ur Culture Indicated? No/sq. contamination Urine Glucose Negative 07/13/20 07/13/20 12:15 13:20 WBC RBC Hgb Hct MCV MCH MCHC RDW Plt Count MPV Immature Gran % Neutrophils % Band Neutrophils % Lymphocytes % Monocytes % Eosinophils % Basophils % Metamyelocytes % Myelocytes % Nucleated RBC % Absolute Neutrophils Absolute Lymphocytes Absolute Monocytes Absolute Eosinophils Absolute Basophils RBC Morphology Polychromasia PT 10.9 INR 1.1 APTT 31.3 H VBG Lactate Sodium Potassium Chloride Carbon Dioxide Anion Gap BUN Creatinine Estimated GFR/1.73 m2 Glucose Calcium Magnesium Total Bilirubin AST ALT Alkaline Phosphatase Troponin I Total Protein Albumin Lipase Urine Color Yellow Urine Clarity Sl cloudy Urine pH 5.5 Ur Specific [place] 1.020 Urine Protein 100 H Urine Ketones Negative Urine Blood Small H Urine Nitrite Negative Urine Bilirubin Negative Urine Urobilinogen 1.0 H Ur Leukocyte Esterase Small H Urine RBC 5-10 H Urine WBC 5-10 Ur Epithelial Cells Rare Urine Crystals Rare amorphous Urine Bacteria Many Urine Casts 3-5 coarse granular Urine Mucus Trace Ur Culture Indicated? Yes Urine Glucose Negative Last Vital Signs Temp 38.8 C H 07/13/20 17:31 Pulse 112 H 07/13/20 17:46 Resp 25 H 07/13/20 17:46 BP 86/49 L 07/13/20 17:46 Pulse Ox 91 L 07/13/20 17:46 COVID-19 Screening Have you, or household traveled for leisure in last 14 days?: No Had IN PERSON contact w/suspected or confirmed C-19 person: No
[2020-07-13] MEDS: Pantoprazole 40 MG TABCR PO (18:11)
[2020-07-13] MEDS: Heparin 5,000 UNITS/ML VIAL 5000 UNITS SC (18:11)
[2020-07-13 18:47] LABS: Source Nasal/Nares
[2020-07-13 18:56] LABS: C-Reactive Protein 22.09 mg/dL (0.0-0.3); ETHANOL BLOOD < 3.0 mg/dL (<3); Troponin I < 0.05 ng/mL (<0.06)
[2020-07-13 19:12] LABS: Procalcitonin 7.9 ng/mL
[2020-07-13] MEDS: Gabapentin 100 MG CAP 200 MG PO (20:08)
[2020-07-13] MEDS: Hydrocortisone SOD SUC. 100 MG VIAL IVP (20:08)
[2020-07-13] MEDS: Aspirin 81 MG CHEW 324 MG CH (20:08)
[2020-07-13] MEDS: QUEtiapine 25 MG TAB 50 MG PO (20:09)
[2020-07-13 20:18] LABS: COVID-19 PCR Negative (Negative)
[2020-07-13] MEDS: Lactated Ringers 1,000 ML 250 ML IV (20:43)
[2020-07-13] MEDS: VANCOMYCIN/WATER (PEG) 1.5 GM/300 ML BAG IV (20:55)
[2020-07-13 21:54] LABS: *AMPHETAMINES SCREEN URINE Negative (Negative); *BARBITURATES SCREEN URINE Negative (Negative); *BENZODIAZEPINES SCREEN URINE Negative (Negative); Cannabinoids THC Negative (Negative); Cocaine Screen,Urine Negative (Negative); METHADONE URINE SCREEN Negative (Negative); OPIATES URINE SCREEN Negative (Negative)
[2020-07-13 21:56] LABS: Tricyclic Antidepressants Negative (Negative)
[2020-07-13] MEDS: Hydrocortisone SOD SUC. 100 MG VIAL 50 MG IVP (23:59)
[2020-07-14] VITALS (105 sets, daily range): BP systolic 83–112; BP diastolic 60–76; PULSE 74–143; RESP 6–36; TEMP 36.6–36.7; O2SAT 83–96
[2020-07-14] MEDS: Lactated Ringers 1,000 ML 250 ML IV ×2 (00:27→04:27)
[2020-07-14] MEDS: Heparin 5,000 UNITS/ML VIAL 5000 UNITS SC ×3 (01:50→18:50)
[2020-07-14] MEDS: Hydrocortisone SOD SUC. 100 MG VIAL 50 MG IVP ×3 (06:15→18:49)
[2020-07-14 07:13] LABS: Abs Immature Grans 0.41 10^3/uL (0.0-0.06); Absolute Basophil Count 0.08 10^3/uL (0.0-0.2); Absolute Monocyte Count 0.65 10^3/uL (0.1-0.8); Basophils % 0.3; Eosinophils % 0.1; HCT 30.3 % (36.0-46.0); HGB 10.6 g/dL (11.2-15.7); Immature Grans % 1.5; Lymphocytes % 1.9; MCH 32.3 pg (27.0-33.0); MCV 92.4 fL (80-95); MPV 10.3 fL (8.0-11.0); Monocytes % 2.4; Neutrophils % 93.8; Nucleated RBC 0 %; Platelet Count 273 10^3/uL (130-400); RBC 3.28 10^6/uL (3.93-5.22); RDW 13.5 % (11.7-14.6); RDW-SD 46.5 fL
[2020-07-14 07:35] LABS: ALT 15 U/L (14-59); AST 13 U/L (15-37); Alkaline Phosphatase 103 U/L (46-116); Anion Gap 11.1 mmol/L (3-11); BUN 36 mg/dL (7-18); Bilirubin, Total 0.5 mg/dL (0.2-1.0); CO2 20.9 mmol/L (21.0-32.0); Calcium 8.1 mg/dL (8.5-10.1); Chloride 111 mmol/L (98-107); Estimated GFR 25.25 (mL/min/1.73m2); Glucose 158 mg/dL (74-106); Potassium 3.5 mmol/L (3.5-5.1); Sodium 143 mmol/L (136-145); TSH 0.46 uIU/mL (0.36-3.74); Total Protein 6.1 g/dL (6.4-8.2)
[2020-07-14 07:55] LABS: Absolute Eosinophil Count 0.03 10^3/uL (0.0-0.7); Absolute Lymphocyte Count 0.51 10^3/uL (1.2-3.4); Absolute Neutrophil Count 25.33 10^3/uL (1.2-6.7)
[2020-07-14 07:56] LABS: Diff Comment Agrees w/ Instrument; RBC Morphology Normal
[2020-07-14] MEDS: Aspirin E.C. 81 MG TABEC PO (09:37)
[2020-07-14] MEDS: Multivitamin TAB 1 TAB PO (09:37)
[2020-07-14] MEDS: Folic Acid 1 MG TAB PO (09:37)
[2020-07-14] MEDS: Atorvastatin 40 MG TAB PO (09:37)
[2020-07-14] MEDS: Pantoprazole 40 MG TABCR PO (09:37)
[2020-07-14] MEDS: QUEtiapine 25 MG TAB 50 MG PO ×2 (09:37→20:20)
[2020-07-14] MEDS: Citalopram 20 MG TAB PO (09:37)
[2020-07-14] MEDS: Cyanocobalamin 500 MCG TAB 1000 MCG PO (09:37)
[2020-07-14] MEDS: Polyethylene Glycol 3350 17 GM PACKET PO (09:37)
[2020-07-14] MEDS: Gabapentin 100 MG CAP 200 MG PO ×3 (09:37→20:20)
[2020-07-14] MEDS: Senna TAB 1 TAB PO (09:38)
--- NOTE | 2020-07-14 10:09 | PGE_ITS ---
Date of Service Date of service: 07/14/20 Time of Service: 10:11 Assessment and Plan Assessment and plan (1) Sepsis: Status: Acute Assessment and plan: Gram-negative gomez bacteremia secondary to pyelonephritis. Urine cultures growing E. coli. Patient remains on meropenem and vancomycin. At this point we can drop the vancomycin and meropenem dose will be adjusted to accommodate her improved renal function. Qualifiers: Sepsis type: sepsis due to unspecified organism Sepsis acute organ dysfunction status: with acute organ dysfunction Severe sepsis acute organ dysfunction type: acute renal failure Acute renal failure type: unspecified Severe sepsis shock status: unspecified Qualified Code(s): A41.9 - Sepsis, unspecified organism; R65.20 - Severe sepsis without septic shock; N17.9 - Acute kidney failure, unspecified (2) Pyelonephritis: Status: Acute Assessment and plan: Continue broad-spectrum antibiotics with meropenem pending results of the blood and urine culture sensitivities. Discontinue vancomycin. (3) OLIMPIA (acute kidney injury): Status: Acute Assessment and plan: Improved kidney function and urine output. Continue IV fluid hydration but the rate can be decreased. (4) Dementia associated with alcoholism: Status: Chronic Assessment and plan: Patient's baseline since returning home from her acute hospital stay last summer has been moderate cognitive deficits. Apparently with the acute infection she was acting more confused than usual. We will closely monitor this and if there is any sign of worsening of neurologic symptoms or acute confusion does not improve with treatment of her infection we will get another MRI to see if there is been a recent CVA. Qualifiers: Dementia behavioral disturbance: without behavioral disturbance Qualified Code(s): F10.27 - Alcohol dependence with alcohol-induced persisting dementia (5) History of CVA (cerebrovascular accident): Status: Chronic Assessment and plan: Continue aspirin therapy. Monitor for any worsening neurologic symptoms. (6) Atrial fibrillation with rapid ventricular response: Status: Acute Assessment and plan: We will restart her Toprol-XL and diltiazem extended release (7) DVT prophylaxis: Status: Acute Assessment and plan: Heparin subcutaneously 5000 units every 12 hours. SCD and TIKI brandon Subjective Subjective Interval history since last seen: Patient is feeling markedly better. Less pain and now afebrile. She still has a leukocytosis of 27,000 however her renal function is improving (BUN 36 & creatinine 2.0) w/ U.O. 1550 over past 12h). She did not require norepinephrine over night to support her pressures. Urine culture is growing E. coli (sensitivities pending) and blood culture is positive for gram negative rods consistent w/ her dx of pyelonephritis. She still has some left flank pain but that is also better. Exam Narrative Exam Narrative: Middle-age white female lying in bed alert and oriented to person but not to place or circumstance. She did recognize she [facility] but does not recall how she ended up here. I explained to her that she has a kidney infection which is spread to her bloodstream. Lungs are clear to auscultation Heart is irregularly irregular slightly tachycardic Abdomen soft nondistended nontender normal bowel sounds Left flank with mild tenderness to palpation and no tenderness on the right flank. Lower extremities without peripheral edema or cyanosis. Objective Last Vital Signs Temp 36.7 C 07/14/20 08:00 Pulse 109 H 07/14/20 09:00 Resp 30 H 07/14/20 09:50 BP 110/70 07/14/20 09:00 Pulse Ox 91 L 07/14/20 08:50 Laboratory Results - last 24 hr 07/13/20 07/13/20 07/13/20 11:45 11:45 11:45 WBC RBC Hgb Hct MCV MCH MCHC RDW Plt Count MPV Immature Gran % Neutrophils % Band Neutrophils % Lymphocytes % Monocytes % Eosinophils % Basophils % Metamyelocytes % Myelocytes % Nucleated RBC % Absolute Neutrophils Absolute Lymphocytes Absolute Monocytes Absolute Eosinophils Absolute Basophils RBC Morphology Polychromasia PT Cancelled INR Cancelled APTT Cancelled VBG Lactate 2.2 H* Sodium Potassium Chloride Carbon Dioxide Anion Gap BUN Creatinine Estimated GFR/1.73 m2 Glucose Calcium Magnesium Total Bilirubin AST ALT Alkaline Phosphatase Troponin I C-Reactive Protein Total Protein Albumin Lipase 91 Procalcitonin TSH Urine Color Urine Clarity Urine pH Ur Specific Rhododendron Urine Protein Urine Ketones Urine Blood Urine Nitrite Urine Bilirubin Urine Urobilinogen Ur Leukocyte Esterase Urine RBC Urine WBC Ur Epithelial Cells Urine Crystals Urine Bacteria Urine Casts Urine Mucus Ur Culture Indicated? Urine Glucose Urine Opiates Screen Urine Methadone Screen Ur Barbiturates Screen Ur Tricyclics Screen Ur Amphetamines Screen U Benzodiazepines Scrn Urine Cocaine Screen Ur THC Screen Ethyl Alcohol COVID-19 Source SARS-CoV-2 (PCR) 07/13/20 07/13/20 07/13/20 11:45 11:45 12:10 WBC 26.14 H* RBC 3.72 L Hgb 12.1 Hct 35.2 L MCV 94.6 MCH 32.5 MCHC 34.4 RDW 13.2 Plt Count 271 MPV 10.2 Immature Gran % See Differential Neutrophils % 86.0 Band Neutrophils % 4 Lymphocytes % 2.0 Monocytes % 3.0 Eosinophils % 1.0 Basophils % 1.0 Metamyelocytes % 2 Myelocytes % 1 Nucleated RBC % 0 Absolute Neutrophils 23.53 H Absolute Lymphocytes 0.52 L Absolute Monocytes 0.78 Absolute Eosinophils 0.26 Absolute Basophils 0.26 H RBC Morphology See below Polychromasia Present PT INR APTT VBG Lactate Sodium 136 Potassium 3.9 Chloride 100 Carbon Dioxide 23.4 Anion Gap 12.6 H BUN 46 H Creatinine 3.4 H Estimated GFR/1.73 m2 13.69 Glucose 162 H Calcium 8.4 L Magnesium 1.8 Total Bilirubin 0.9 AST 23 ALT 20 Alkaline Phosphatase 109 Troponin I < 0.05 C-Reactive Protein Total Protein 7.7 Albumin 2.8 L Lipase Procalcitonin TSH Urine Color Yellow Urine Clarity Sl cloudy Urine pH 5.5 Ur Specific Rhododendron 1.025 Urine Protein 100 H Urine Ketones Trace H Urine Blood Small H Urine Nitrite Negative Urine Bilirubin Small H Urine Urobilinogen 1.0 H Ur Leukocyte Esterase Small H Urine RBC 5-10 H Urine WBC 5-10 Ur Epithelial Cells Moderate Urine Crystals Rare amorphous Urine Bacteria Moderate Urine Casts 3-5 coarse granular Urine Mucus Trace Ur Culture Indicated? No/sq. contamination Urine Glucose Negative Urine Opiates Screen Urine Methadone Screen Ur Barbiturates Screen Ur Tricyclics Screen Ur Amphetamines Screen U Benzodiazepines Scrn Urine Cocaine Screen Ur THC Screen Ethyl Alcohol COVID-19 Source SARS-CoV-2 (PCR) 07/13/20 07/13/20 07/13/20 12:15 13:20 13:20 WBC RBC Hgb Hct MCV MCH MCHC RDW Plt Count MPV Immature Gran % Neutrophils % Band Neutrophils % Lymphocytes % Monocytes % Eosinophils % Basophils % Metamyelocytes % Myelocytes % Nucleated RBC % Absolute Neutrophils Absolute Lymphocytes Absolute Monocytes Absolute Eosinophils Absolute Basophils RBC Morphology Polychromasia PT 10.9 INR 1.1 APTT 31.3 H VBG Lactate Sodium Potassium Chloride Carbon Dioxide Anion Gap BUN Creatinine Estimated GFR/1.73 m2 Glucose Calcium Magnesium Total Bilirubin AST ALT Alkaline Phosphatase Troponin I C-Reactive Protein Total Protein Albumin Lipase Procalcitonin TSH Urine Color Yellow Urine Clarity Sl cloudy Urine pH 5.5 Ur Specific Rhododendron 1.020 Urine Protein 100 H Urine Ketones Negative Urine Blood Small H Urine Nitrite Negative Urine Bilirubin Negative Urine Urobilinogen 1.0 H Ur Leukocyte Esterase Small H Urine RBC 5-10 H Urine WBC 5-10 Ur Epithelial Cells Rare Urine Crystals Rare amorphous Urine Bacteria Many Urine Casts 3-5 coarse granular Urine Mucus Trace Ur Culture Indicated? Yes Urine Glucose Negative Urine Opiates Screen Urine Methadone Screen Ur Barbiturates Screen Ur Tricyclics Screen Ur Amphetamines Screen U Benzodiazepines Scrn Urine Cocaine Screen Ur THC Screen Ethyl Alcohol COVID-19 Source Nasal/nares SARS-CoV-2 (PCR) Negative 07/13/20 07/13/20 07/13/20 18:13 18:13 18:13 WBC RBC Hgb Hct MCV MCH MCHC RDW Plt Count MPV Immature Gran % Neutrophils % Band Neutrophils % Lymphocytes % Monocytes % Eosinophils % Basophils % Metamyelocytes % Myelocytes % Nucleated RBC % Absolute Neutrophils Absolute Lymphocytes Absolute Monocytes Absolute Eosinophils Absolute Basophils RBC Morphology Polychromasia PT INR APTT VBG Lactate 1.0 Sodium Potassium Chloride Carbon Dioxide Anion Gap BUN Creatinine Estimated GFR/1.73 m2 Glucose Calcium Magnesium Total Bilirubin AST ALT Alkaline Phosphatase Troponin I < 0.05 C-Reactive Protein 22.09 H Total Protein Albumin Lipase Procalcitonin 7.9 TSH Urine Color Urine Clarity Urine pH Ur Specific Rhododendron Urine Protein Urine Ketones Urine Blood Urine Nitrite Urine Bilirubin Urine Urobilinogen Ur Leukocyte Esterase Urine RBC Urine WBC Ur Epithelial Cells Urine Crystals Urine Bacteria Urine Casts Urine Mucus Ur Culture Indicated? Urine Glucose Urine Opiates Screen Urine Methadone Screen Ur Barbiturates Screen Ur Tricyclics Screen Ur Amphetamines Screen U Benzodiazepines Scrn Urine Cocaine Screen Ur THC Screen Ethyl Alcohol < 3.0 COVID-19 Source SARS-CoV-2 (PCR) 07/13/20 07/14/20 07/14/20 21:00 06:37 06:37 WBC 27.00 H* RBC 3.28 L Hgb 10.6 L Hct 30.3 L MCV 92.4 MCH 32.3 MCHC 35.0 RDW 13.5 Plt Count 273 MPV 10.3 Immature Gran % 1.5 Neutrophils % 93.8 Band Neutrophils % Lymphocytes % 1.9 Monocytes % 2.4 Eosinophils % 0.1 Basophils % 0.3 Metamyelocytes % Myelocytes % Nucleated RBC % 0 Absolute Neutrophils 25.33 H Absolute Lymphocytes 0.51 L Absolute Monocytes 0.65 Absolute Eosinophils 0.03 Absolute Basophils 0.08 RBC Morphology Normal Polychromasia PT INR APTT VBG Lactate Sodium 143 Potassium 3.5 Chloride 111 H Carbon Dioxide 20.9 L Anion Gap 11.1 H BUN 36 H D Creatinine 2.0 H D Estimated GFR/1.73 m2 25.25 Glucose 158 H Calcium 8.1 L Magnesium Total Bilirubin 0.5 AST 13 L ALT 15 Alkaline Phosphatase 103 Troponin I C-Reactive Protein Total Protein 6.1 L Albumin 2.0 L Lipase Procalcitonin TSH 0.46 Urine Color Urine Clarity Urine pH Ur Specific Rhododendron Urine Protein Urine Ketones Urine Blood Urine Nitrite Urine Bilirubin Urine Urobilinogen Ur Leukocyte Esterase Urine RBC Urine WBC Ur Epithelial Cells Urine Crystals Urine Bacteria Urine Casts Urine Mucus Ur Culture Indicated? Urine Glucose Urine Opiates Screen Negative Urine Methadone Screen Negative Ur Barbiturates Screen Negative Ur Tricyclics Screen Negative Ur Amphetamines Screen Negative U Benzodiazepines Scrn Negative Urine Cocaine Screen Negative Ur THC Screen Negative Ethyl Alcohol COVID-19 Source SARS-CoV-2 (PCR)
[2020-07-14] MEDS: Lactated Ringers 1,000 ML 125 ML IV ×2 (10:31→16:34)
--- NOTE | 2020-07-14 11:36 | PDOC.CMIN ---
- If Service Date Differs Date of service: 07/14/20 Time of Service: 11:36 Care Management Initial Assess REASON FOR HOSPITALIZATION:: Pyelonephritis PAST MEDICAL HISTORY/PAST SURGICAL HISTORY:: Acute exacerbation of CHF (congestive heart failure). Alcohol abuse. Alcohol withdrawal delirium, acute, hyperactive. Anxiety and depression (08/06/14). Aspiration pneumonia. Atrial fibrillation. Atrial fibrillation with rapid ventricular response. Bilateral pleural effusion. Chest pain. Chronic diastolic CHF (congestive heart failure). Depression. History of alcohol abuse. Lip laceration. Lower extremity weakness. Medical non-compliance. Opiate addiction (08/06/14). in recovery. weaned off suboxone through [facility] 05/05/14. Pericardial effusion. Pulmonary nodules. Respiratory failure. SAH (subarachnoid hemorrhage). Subclinical hypothyroidism. Tobacco abuse (07/07/17). bunionectomy. lamontangen a few years ago 2005ish. History of bilateral tubal ligation PREVIOUS FUNCTIONAL STATUS/SOCIAL/FAMILY SUPPORTS:: Shantel is previously well known to this va underwriter with 18 visits to [facility] in 2019. [place] [facility] about [place] ago. Per MD assessment, she spent much of the summer of 2019 at [facility] and subsequently went to the acute alcohol treatment inpatient facility in [facility] and was discharged back to [place] to the care of her niece and guardian, Trish Estrada. She has suffered from cognitive impairment secondary to alcoholic dementia as well as CVA. Since her prolonged hospitalization and subsequent prolonged rehab stay she has had problems with urinary incontinence felt to be due to prolonged Peterson catheter placement. Her PCP had been working on voiding trials. CM spoke with Trish, her niece and guardian who reported Shantel has become weaker and had a few falls recently. She reports feeling Maura could benefit from S/T rehab at this time, with possible consideration for care home placement, though she worries Maura will prefer to return home. She reports struggling with having a great Aunt/Niece relationship and not wanting that to become effected by increased caregiver relationship needs. CURRENT FUNCTIONAL STATUS:: Maura is lying in bed, sleeping when CM first attempts to see her. Trish is at her bedside visiting in the afternoon and provides information for assessment. ADVANCE DIRECTIVES:: Guardian: Trish Estrada Has patient been provided with info about the portal/API?: No Did the patient sign up for the portal?: No CODE STATUS:: Full Code INSURANCE COVERAGE / FINANCIAL ISSUES:: Medicare. 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 PATIENT/FAMILY EDUCATION NEEDS:: Review discharge instructions, discuss Ask Me Three. ANTICIPATED BARRIERS TO DISCHARGE:: None identified. TRANSPORTATION:: Via private vehicle with her niece, versus RCT. PLAN:: Shantel will likely discharge to SNF when ready per MD. Referrals sent to [facility] and [facility]. Anticipate she will transport via private vehicle with her niece or via RCT. CM continues to follow.
[2020-07-14] MEDS: Metoprolol CR 100 MG TABCR PO (13:18)
[2020-07-14] MEDS: dilTIAZem CD 120 MG CAPCR 240 MG PO (16:13)
[2020-07-14] MEDS: MEROPENEM 1 GM in Normal Saline 100 ML IVPB (20:20)
[2020-07-14] MEDS: Acetaminophen 325 MG TAB PO (21:08)
[2020-07-14] MEDS: LORazepam 1 MG TAB PO (21:08)
[2020-07-14] MEDS: Melatonin 3 MG TAB 6 MG PO (21:08)
[2020-07-15] VITALS (10 sets, daily range): BP systolic 82–104; BP diastolic 50–75; PULSE 58–93; RESP 12–22; TEMP 35.7; O2SAT 91–94
--- NOTE | 2020-07-15 | DI.US_ITS ---
Exam(s) US RENAL EXAM: US RENAL CLINICAL HISTORY: pyelonephritis. TECHNIQUE: Paz scale, color and spectral Doppler were used. COMPARISON: CT CT ABDOMEN PELVIS WO from 07/13/[address] ABDOMEN PELVIS WO from 07/13/2020 FINDINGS: Renal size in cm: Right: 13.1 left: 12.4 Echogenicity: Normal Hydronephrosis: No Cyst or mass: No Nephrolithiasis: No No perinephric fluid collection. Bladder:Empty and unable to be evaluated. Peterson catheter in place. IMPRESSION: Normal appearing kidneys. No evidence of stones or hydronephrosis. DATA REPOSITORY:
[2020-07-15] MEDS: Hydrocortisone SOD SUC. 100 MG VIAL 50 MG IVP ×2 (00:07→06:12)
[2020-07-15] MEDS: Lactated Ringers 1,000 ML 125 ML IV ×2 (00:08→08:05)
[2020-07-15] MEDS: traZODone 50 MG TAB 75 MG PO (00:15)
[2020-07-15] MEDS: Heparin 5,000 UNITS/ML VIAL 5000 UNITS SC ×3 (02:03→18:11)
[2020-07-15 06:53] LABS: Absolute Basophil Count 0.05 10^3/uL (0.0-0.2); Basophils % 0.2; HCT 30.1 % (36.0-46.0); HGB 10.6 g/dL (11.2-15.7); Immature Grans % 1.1; Lymphocytes % 3.2; MCH 32.1 pg (27.0-33.0); MCHC 35.2 % (32.0-36.0); MCV 91.2 fL (80-95); Monocytes % 2.6; Neutrophils % 92.9; Nucleated RBC 0 %; Platelet Count 325 10^3/uL (130-400); RDW 13.4 % (11.7-14.6)
[2020-07-15 06:57] LABS: Absolute Lymphocyte Count 0.85 10^3/uL (1.2-3.4); Absolute Monocyte Count 0.69 10^3/uL (0.1-0.8); Absolute Neutrophil Count 24.53 10^3/uL (1.2-6.7)
[2020-07-15 06:59] LABS: WBC 26.41 10^3/uL (4.4-10.8)
[2020-07-15 07:17] LABS: Anion Gap 10.3 mmol/L (3-11); BUN 31 mg/dL (7-18); C-Reactive Protein 11.43 mg/dL (0.0-0.3); CO2 22.7 mmol/L (21.0-32.0); CREATININE 1.5 mg/dL (0.55-1.02); Calcium 8.7 mg/dL (8.5-10.1); Chloride 112 mmol/L (98-107); Estimated GFR 35.19 (mL/min/1.73m2); Glucose 156 mg/dL (74-106); Potassium 3.3 mmol/L (3.5-5.1); Sodium 145 mmol/L (136-145)
[2020-07-15 07:25] LABS: Diff Comment Agrees w/ Instrument; RBC Morphology Normal
[2020-07-15] MEDS: Atorvastatin 40 MG TAB PO (08:16)
[2020-07-15] MEDS: dilTIAZem CD 120 MG CAPCR 240 MG PO (08:16)
[2020-07-15] MEDS: Multivitamin TAB 1 TAB PO (08:16)
[2020-07-15] MEDS: Gabapentin 100 MG CAP 200 MG PO ×3 (08:16→20:21)
[2020-07-15] MEDS: Metoprolol CR 100 MG TABCR PO (08:16)
[2020-07-15] MEDS: QUEtiapine 25 MG TAB 50 MG PO ×2 (08:16→20:21)
[2020-07-15] MEDS: Citalopram 20 MG TAB PO (08:16)
[2020-07-15] MEDS: Folic Acid 1 MG TAB PO (08:16)
[2020-07-15] MEDS: Senna TAB 1 TAB PO (08:16)
[2020-07-15] MEDS: Aspirin E.C. 81 MG TABEC PO (08:17)
[2020-07-15] MEDS: Cyanocobalamin 500 MCG TAB 1000 MCG PO (08:17)
[2020-07-15] MEDS: Polyethylene Glycol 3350 17 GM PACKET PO (08:17)
[2020-07-15] MEDS: Pantoprazole 40 MG TABCR PO (08:17)
[2020-07-15 08:47] LABS: Procalcitonin 3.3 ng/mL
[2020-07-15] MEDS: MEROPENEM 1 GM in Normal Saline 100 ML IVPB (08:53)
--- NOTE | 2020-07-15 09:38 | IN_ITS ---
Date of service: 07/15/20 Time of Service: 09:38 PT Notes Visit Reasons: Pyelonephritis Physical Therapy Inpatient Initial Evaluation Date: 07/15/2020 Referring Doctor: Angelito Davey MD PT Orders: PT CONSULT: Extended stay weakness Precautions: Fall. Standard. Activity as tolerated. Patient Profile/Admitting Diagnosis: Shantel is a 61-year-old female who presented to the ED on 07/13/2020 with worsening abdominal pain that started 2 weeks ago, generalized weakness, altered mental status, and increased confusion. Patient is diagnosed with sepsis, pyelonephritis, kidney injury and atrial fibrillation with rapid ventricular response. PMHX: Medical History? Acute exacerbation of CHF (congestive heart failure) Alcohol abuse Alcohol withdrawal delirium, acute, hyperactive Anxiety and depression (08/06/14) Aspiration pneumonia Atrial fibrillation Atrial fibrillation with rapid ventricular response Bilateral pleural effusion Chest pain Chronic diastolic CHF (congestive heart failure) Depression History of alcohol abuse Lip laceration Lower extremity weakness Medical non-compliance Opiate addiction (08/06/14) in recovery.? weaned off suboxone through [facility] 05/05/14 Pericardial effusion Pericardial effusion Pulmonary nodules Respiratory failure SAH (subarachnoid hemorrhage) Subclinical hypothyroidism Tobacco abuse (07/07/17) Surgical History? bunionectomy lamontangen? a few years ago 2005ish History of bilateral tubal ligation Social History/Home Situation: Lives with significant other in a private home with 4 cemented steps that lead on top of origin and another 4-5 steps to the entrance of the house, rails on both set of steps. Independent with all aspects of ADLs prior to admission without the need for an assistive ambulatory device nor adaptive equipment. No longer drives. Equipment Owned/DME: None Subjective: Agreeable PT consult. Denies headache, dizziness. Complained of being unstable when she stood up from the edge of the bed. Did report of minimal fatigue during ambulation activity that required a 1 seated rest on wheelchair. 1 fall in the past 12 months. Objective: General Observation: Supine in bed. Telemetry monitoring in place. IV in right UE. Peterson catheter in place. B TEDS on. Mental Status: Alert and oriented as to person, place, time, and purpose. Able to pay attention, focus, and respond appropriately. Pain: 0/10 states that she has had 1 fall in the past 12 months. Vital Signs: After ambulation: After completing 100 feet blood pressure 100/65 mmHg, heart rate 83 bpm, and oxygen saturation 94% on room air . After session: Blood pressure 90/70 mmHg, 76 bpm for heart rate and 93% for oxygen saturation on room air ROM: Right Upper Extremity: Shoulder Flexion WFL. Shoulder abduction WFL. Shoulder ER/IR WFL. Elbow flexion WFL. Forearm pronation/supination WFL. Wrist flexion WFL. Opening and closing of hand WFL. Left Upper Extremity: Shoulder Flexion WFL. Shoulder abduction WFL. Shoulder ER/IR WFL. Elbow flexion WFL. Forearm pronation/supination WFL. Wrist flexion WFL. Opening and closing of hand WFL. Right Lower Extremity: Hip flexion WFL. Hip abduction WFL. Hip ER/IR WFL. Knee flexion WFL. Knee extension. Ankle dorsiflexion/eversion WFL. Ankle plantarflexion/inversion WFL. Left Lower Extremity: Hip flexion WFL. Hip abduction WFL. Hip ER/IR WFL. Knee flexion WFL. Knee extension. Ankle dorsiflexion WFL. Ankle plantarflexion WFL. Strength: Right Upper Extremity: Shoulder flexors 5/5. Shoulder abductors 5/5. Shoulder ER 5/5. Shoulder IR 5/5. Forearm pronators 5/5. Forearm supinators 5/5. Elbow flexors 5/5. Elbow extensors 5/5. Home Health Travel Pt strong. Left Upper Extremity: Shoulder flexors 5/5. Shoulder abductors 5/5. Shoulder ER 5/5/ Shoulder IR 5/5. Forearm pronators 5/5. Forearm supinators 5/5. Elbow flexors 5/5. Elbow extensors 5/5. Home Health Travel Pt strong. Right Lower Extremity: Hip flexors 4/5. Hip abductors 4/5. Hip external rotators 4/5. Hip internal rotators 4/5. Knee flexors 5/5. Knee extensors 4/5. Ankle dorsiflexors/evertors 5/5. Ankle plantarflexors/invertors 5/5. Left Lower Extremity: Hip flexors 4/5. Hip abductors 4/5. Hip external rotators 4/5. Hip internal rotators 4/5. Knee flexors 5/5. Knee extensors 4/5. Ankle dorsiflexors/evertors 5/5. Ankle plantarflexors/invertors 5/5. Bed Mobility/Transfers: Rolling standby assist Supine to sit standby assist with HOB at 45 degrees Sit to supine standby assist Sit to stand contact-guard assist Stand to sit standby assist Bed to bedside commode contact-guard assist Bedside commode to bed standby assist Gait: Distance of 100 feet +100 feet requiring contact-guard assist. Daisy decreased. Needed seated rest due to onset of fatigue. Balance: Static Sitting: Normal Dynamic Sitting: Normal Static Standing: Fair Dynamic Standing: Fair 4-stage Balance Test: Unable to perform semi-tandem, full tandem, and one-legged stance due to fatigue. Special Tests: Mobility Limitations Standardized Measure [facility]-P[facility] 6 clicks Basic Mobility Inpatient Short Form: Raw Score: 20 CMS Score: 36% deficit Informed Consent/Education: Patient was instructed in purpose of PT consult and plan of care. Agreeable to proceed with established PT POC to achieve personal goals. Assessment: Shantel demonstrates functional mobility decline, balance impairment, generalized weakness, and increased risk for falls due to admitting diagnoses. Patient will benefit from home health PT services in order to progress mobility level using least restrictive assistive ambulatory device, assess home safety, identify additional equipment needs, and establish a functional maintenance program that will increase ability of patient to remain at home. Patient presents with clinical signs and symptoms consistent with current/admitting diagnoses that have resulted to mobility limitations, gait instability, generalized weakness, and impairment of motor control as demonstrated by the following impairment level findings: 1. Impaired dynamic standing balance 2. Impaired activity tolerance Impairments are contributing to the following functional limitations: 1. Increased dependence with transfers 2. Inability to safely ambulate without assistive device and physical assistance 3. Increase completion time for mobility ADL performance 4. Increased fall risk 5. Inability to negotiate steps alone safely 6. Inability to return to prior living environment at this time Patient is assessed as a [address]22 moderate female complexity based on the following: History: 60-year-old female with past medical history as indicated above Examination: Demonstrable impairment in strength, balance, and mobility level with underlying impairments and functional limitations as exhibited above as well as deficit score of 36% utilizing the [facility] Mobility Inpatient Short Form Presentation: Evolving Decision Makin moderate complexity Goals: Goals X1 week 1. Supine-Sit independent 2. Sit-Supine independent 3. Sit-Stand independent 4. Stand-Sit independent 5. Bed-Chair independent 6. Chair-Bed independent 7. Independent gait on level surface with use of no assistive device for at least 500 feet without report of pain nor dyspnea 8. Independent stair negotiation while holding onto B rails for at least 10 patient will benefit from home health PT services in order to progress mobility level using least restrictive assistive ambulatory device, assess home safety, identify additional equipment needs, and establish a functional maintenance program that will increase ability of patient to remain at home. 9716 2 x 25 minutes, 68773 times steps without report of pain nor dyspnea 9. Independent with home exercise program 10. Good static and dynamic standing balance/tolerance Plan of Care/Treatment Plan: 1-2x/day, 7 days/week x 1 week. Plan of care has been reviewed with the CIVIL STRUCTURAL ENGINEER providing the service under Physical Therapy direction. Initiate Physical Therapy intervention for pain management as needed, strengthening, bed mobility, transfers, gait, stairs, balance training, and use of assistive device. DISCHARGE RECOMMENDATIONS: TREATMENT CODE/TIME: 85984 x 25 minutes, 65833 x 38 minutes beginning at 9:38 AM and 10:14 AM. Thank you for the opportunity to participate in the care of this patient. Chika Cordova PT, DPT, CLT [facility] [place], [place]
[2020-07-15 09:58] LABS: Magnesium 1.7 mg/dL (1.8-2.4)
[2020-07-15] MEDS: Potassium Chloride 10 MEQ CAPCR 40 MEQ PO (10:06)
--- NOTE | 2020-07-15 11:04 | PHA.REVIEW ---
Pharmacy Admission Review - Admission Clinical Review (Last Reviewed 07/13/20 @ 18:58 by Angelito Davey) DVT prophylaxis (Acute) Sepsis (Acute) Pyelonephritis (Acute) OLIMPIA (acute kidney injury) (Acute) Atrial fibrillation with rapid ventricular response (Acute) No Known Allergies Allergy (Verified 07/13/20 11:36) Height 5 ft 8 in Weight 96.4 kg - Renal Dosing Renal Dosing: BUN 31 mg/dL (7-18) H 07/15/20 06:25 Creatinine 1.5 mg/dL (0.55-1.02) H 07/15/20 06:25 Medications needing adjustments: Reviewed List of meds needing interventions: eCrCl using adjusted body weight is 47.2 ml/min -- meropenem interval extended to q12h - Anticoagulation Anticoagulation: Hgb 10.6 g/dL (11.2-15.7) L 07/15/20 06:25 Hct 30.1 % (36.0-46.0) L 07/15/20 06:25 Plt Count 325 10^3/uL (130-400) 07/15/20 06:25 INR 1.1 (0.9-1.1) 07/13/20 12:15 Creatinine 1.5 mg/dL (0.55-1.02) H 07/15/20 06:25 DVT Prohphylaxis: Reviewed Medications: Heparin - Opiate Usage Evaluate Pain Scale/Pains Meds: N/A Scheduled Bowel Reg ordered if on Opiates?: Yes - Relevant Labs Sodium 145 mmol/L (136-145) 07/15/20 06:25 Potassium 3.3 mmol/L (3.5-5.1) L 07/15/20 06:25 Chloride 112 mmol/L (98-107) H 07/15/20 06:25 Magnesium 1.7 mg/dL (1.8-2.4) L 07/15/20 06:25 C-Reactive Protein 11.43 mg/dL (0.0-0.3) H 07/15/20 06:25 Electrolytes, C-Reactive P, ESR: Reviewed (K+ being replaced with PO regimen) - DM Control DM Control: Glucose 156 mg/dL (74-106) H 07/15/20 06:25 Insulin Dosing: N/A - Heart Failure/NV Heart Failure/NV: Troponin I < 0.05 ng/mL (<0.06) 07/13/20 18:13 EF%, KENNETH's, B-Blockers, Diuretics: Reviewed - BP Control BP Control: Blood Pressure 91/59 Blood Pressure 104/72 Blood Pressure 82/54 If elevated: Reviewed List meds needing interventions: diltiazem er 240 plus metoprolol succ 50mg daily -- metoprolol decreased from 100mg today - Qtc Review If Elevated: Reviewed List meds needing interventions: QTc 429 on admission - IV to PO Switch IV Medications: Reviewed - Home Meds Home Med List reviewed: Reviewed Relevent Home Meds Not ordered & why?: all ordered - Current meds Current Medication Order Review: Reviewed - Comments Comments/Follow Ups: OrIginally started on Vanco and meropenem -- vanco dc'd after blood and urine culture results revealed e. coli; continue meropenem until sensitivies result
--- NOTE | 2020-07-15 12:23 | W.PM.PROGNOT ---
Date of Service Date of service: 07/15/20 Time of Service: 12:23 Assessment and Plan Assessment and plan (1) Sepsis: Status: Resolved Assessment and plan: patient remains hemodynamically stable. However her WBC remains elevated at 26,000 but she is afebrile and her flank pain has improved. She remains on Meropenem for E. coli UTI w/ bacteremia. Repeat blood cultures were drawn today. Meropenem dosing was adjusted yesterday by pharmacy to 1 gm Q12h. Given that her E coli was pansensitive, she can be switched to Ceftriaxone 2 gm daily. Patient was written to be moved to med/surg last night. She no longer needs ICU care. Qualifiers: Sepsis type: sepsis due to unspecified organism Sepsis acute organ dysfunction status: with acute organ dysfunction Severe sepsis acute organ dysfunction type: acute renal failure Acute renal failure type: unspecified Severe sepsis shock status: unspecified Qualified Code(s): A41.9 - Sepsis, unspecified organism; R65.20 - Severe sepsis without septic shock; N17.9 - Acute kidney failure, unspecified (2) Pyelonephritis: Status: Acute Assessment and plan: As her urine culture demonstrated pansensitive E. coli, she can be switched to Rocephin 2 gm daily. (3) OLIMPIA (acute kidney injury): Status: Acute Assessment and plan: Improved kidney function and urine output. Patient is eating and drinking ok. I had increased her iv fluids early this a.m. d/t low BP however she is asymptomatic. I will decrease her iv fluids further and discontinue after this next bag. (4) Dementia associated with alcoholism: Status: Chronic Assessment and plan: baseline of dementia d/t CVA and alcoholism however her acute confusion seems to have cleared. cont. her home meds of citalopram, trazodone, and quetiapine. Qualifiers: Dementia behavioral disturbance: without behavioral disturbance Qualified Code(s): F10.27 - Alcohol dependence with alcohol-induced persisting dementia (5) History of CVA (cerebrovascular accident): Status: Chronic Assessment and plan: Continue aspirin therapy. (6) Atrial fibrillation with rapid ventricular response: Status: Acute Assessment and plan: patient is back on her Toprol XL and her afib rate is controlled. at this point she no longer needs telemetry monitoring. (7) DVT prophylaxis: Status: Acute Assessment and plan: Heparin subcutaneously 5000 units every 12 hours. SCD and TIKI brandon Subjective Subjective Patient reports: no new complaints, feels better, pain is less, tolerating a regular diet and voiding w/o difficulty; denies nausea, vomiting and shortness of breath Exam Narrative Exam Narrative: Middle-age white female sitting up at the bedside eating her lunch in no discomfort. Lungs with bibasilar rales no rhonchi or wheezing Heart is irregularly irregular at a controlled rate Abdomen soft tender without guarding. Positive bowel sounds. Left flank with minimal tenderness to palpation Objective Last Vital Signs Temp 36.7 C 07/14/20 20:42 Pulse 87 07/15/20 09:00 Resp 19 07/15/20 09:00 BP 91/59 L 07/15/20 09:00 Pulse Ox 91 L 07/15/20 08:10 Laboratory Results - last 24 hr 07/15/20 07/15/20 07/15/20 06:25 06:25 06:25 WBC 26.41 H* RBC 3.30 L Hgb 10.6 L Hct 30.1 L MCV 91.2 MCH 32.1 MCHC 35.2 RDW 13.4 Plt Count 325 MPV 10.0 Immature Gran % 1.1 Neutrophils % 92.9 Lymphocytes % 3.2 Monocytes % 2.6 Eosinophils % 0.0 Basophils % 0.2 Nucleated RBC % 0 Absolute Neutrophils 24.53 H Absolute Lymphocytes 0.85 L Absolute Monocytes 0.69 Absolute Eosinophils 0.00 Absolute Basophils 0.05 RBC Morphology Normal Sodium 145 Potassium 3.3 L Chloride 112 H Carbon Dioxide 22.7 Anion Gap 10.3 BUN 31 H Creatinine 1.5 H Estimated GFR/1.73 m2 35.19 Glucose 156 H Calcium 8.7 Magnesium 1.7 L C-Reactive Protein 11.43 H Procalcitonin 3.3 Reviewed Pertinent PMH: Yes Objective Narrative Objective Narrative: WBC still elevated at 26,000, stable anemia Hb 10.6 gm; K of 3.3; improved renal function BUN 31 and creatinine of 1.5
[2020-07-15 12:32] LABS: C Diff PCR Negative (Negative)
[2020-07-15] MEDS: Potassium Chloride 10 MEQ CAPCR 20 MEQ PO ×2 (13:40→20:21)
--- NOTE | 2020-07-15 15:10 | PTTR_ITS ---
Date of service: 07/15/20 Time of Service: 15:10 PT Notes Visit Reasons: Pyelonephritis Physical Therapy Inpatient Treatment Note Date: 07/15/2020 Precautions: Fall. Standard. Activity as tolerated. Subjective: Agreeable PT consult.? Denies headache, dizziness.? Complained of discomfort in perineal area due to catheter. Objective: General Observation: Supine in bed.? IV access in right UE.? Peterson catheter in place.? B TEDS on. Mental Status: Alert and oriented as to person, place, time, and purpose. Able to pay attention, focus, and respond appropriately. Pain: Discomfort in perineal area due to catheter Bed Mobility/Transfers: Rolling standby assist Supine to sit standby assist with HOB at 45 degrees Sit to supine standby assist Sit to stand standby assist Stand to sit standby assist Bed to bedside chair standby assist Gait: Distance of 80 feet +150 feet requiring contact-guard assist. Daisy decreased. Needed seated rest due to onset of fatigue. Appeared less shaky this afternoon. Balance: Static Sitting: Normal Dynamic Sitting: Normal Static Standing: Fair Dynamic Standing: Fair Assessment: [facility] today for continued medical management and rehabilitation. Tolerated longer ambulation distance, appeared more stable and less shaky. Initiated resistance exercises using 1 pound dumbbells for B UE on 2.5 ankle weights for B LE. Plan of Care/Treatment Plan: 1-2x/day, 7 days/week x 1 week. Plan of care has been reviewed with the CLIENT SOLUTIONS SPECIALIST providing the service under Physical Therapy direction. Initiate Physical Therapy intervention for pain management as needed, strengthening, bed mobility, transfers, gait, stairs, balance training, and use of assistive device. DISCHARGE RECOMMENDATIONS: Patient will benefit from home health PT services in order to progress mobility level using least restrictive assistive ambulatory device, assess home safety, identify additional equipment needs, and establish a functional maintenance program that will increase ability of patient to remain at home. TREATMENT CODE/TIME: 89607 x 20 minutes, 26193 x 15 minutes beginning at 15:10 PM.
--- NOTE | 2020-07-15 15:19 | NUR.NOTE ---
Nursing Note: 07/15/20 15:19 Patient was transferred out from ICU 222 to Med/Surg 227 at 14:07, see worklist.
--- NOTE | 2020-07-15 17:53 | PDOC.CMPRO ---
Care Management Progress Note S/O: Shantel was sitting up in her room on M/S, visiting with her niece. She was offered a bed at [facility] today, awaiting determinations from the [facility] as well, Trish requested a referral be faxed to Samra Lu at [facility], recommendation. CM continues to follow. A: 60 year old female admitted to [facility] 07/13/20 for Pyelonephritis P: Shantel will likely discharge to SNF when ready per MD. Referrals sent to [facility] and [facility] Anticipate she will transport via private vehicle with her niece or via RCT. CM continues to follow.
[2020-07-15] MEDS: Normal Saline Flush 10 ML SYR IVP (20:21)
[2020-07-15] MEDS: Normal Saline 500 ML 30 ML IV (20:22)
[2020-07-15] MEDS: cefTRIAXone 2 GM/50 ML BAG IVPB (20:22)
[2020-07-16] VITALS (7 sets, daily range): BP systolic 86–115; BP diastolic 50–78; PULSE 72–111; RESP 17–20; TEMP 36.5–37.5; O2SAT 92–95
[2020-07-16] MEDS: Heparin 5,000 UNITS/ML VIAL 5000 UNITS SC ×3 (01:46→18:36)
[2020-07-16 07:00] LABS: Abs Immature Grans 0.16 10^3/uL (0.0-0.06); Absolute Basophil Count 0.02 10^3/uL (0.0-0.2); Absolute Lymphocyte Count 1.61 10^3/uL (1.2-3.4); Basophils % 0.1; Eosinophils % 0.2; HCT 31.1 % (36.0-46.0); MCH 32.2 pg (27.0-33.0); MCHC 35.4 % (32.0-36.0); MCV 90.9 fL (80-95); MPV 10.1 fL (8.0-11.0); Neutrophils % 81.7; Nucleated RBC 0 %; Platelet Count 398 10^3/uL (130-400); RBC 3.42 10^6/uL (3.93-5.22); RDW 13.9 % (11.7-14.6); WBC 16.07 10^3/uL (4.4-10.8)
[2020-07-16 07:06] LABS: Absolute Eosinophil Count 0.03 10^3/uL (0.0-0.7); Absolute Monocyte Count 1.12 10^3/uL (0.1-0.8); Absolute Neutrophil Count 13.13 10^3/uL (1.2-6.7)
[2020-07-16 07:17] LABS: Anion Gap 11.7 mmol/L (3-11); BUN 31 mg/dL (7-18); CO2 21.3 mmol/L (21.0-32.0); CREATININE 1.4 mg/dL (0.55-1.02); Calcium 8.4 mg/dL (8.5-10.1); Chloride 114 mmol/L (98-107); Glucose 102 mg/dL (74-106); Magnesium 1.6 mg/dL (1.8-2.4); Potassium 3.5 mmol/L (3.5-5.1); Sodium 147 mmol/L (136-145)
[2020-07-16] MEDS: Pantoprazole 40 MG TABCR PO (08:43)
[2020-07-16] MEDS: Folic Acid 1 MG TAB PO (08:43)
[2020-07-16] MEDS: Cyanocobalamin 500 MCG TAB 1000 MCG PO (08:43)
[2020-07-16] MEDS: Potassium Chloride 10 MEQ CAPCR 20 MEQ PO ×3 (08:43→19:55)
[2020-07-16] MEDS: Multivitamin TAB 1 TAB PO (08:43)
[2020-07-16] MEDS: Citalopram 20 MG TAB PO (08:44)
[2020-07-16] MEDS: Gabapentin 100 MG CAP 200 MG PO ×3 (08:44→19:54)
[2020-07-16] MEDS: Aspirin E.C. 81 MG TABEC PO (08:44)
[2020-07-16] MEDS: Atorvastatin 40 MG TAB PO (08:44)
[2020-07-16] MEDS: QUEtiapine 25 MG TAB 50 MG PO ×2 (08:44→19:54)
[2020-07-16] MEDS: dilTIAZem CD 120 MG CAPCR 240 MG PO (08:44)
--- NOTE | 2020-07-16 09:34 | PT.INTREAT ---
Date of service: 07/16/20 Time of Service: 08:45 PT Notes Visit Reasons: Pyelonephritis Inpatient Physical Therapy Treatment Note [facility] Date: 07/16/2020 PRECAUTIONS: Activity as tolerated SUBJECTIVE: Shantel is pleasant and agreeable to participating in PT. She reports that she is not feeling well this morning and that her stomach is upset. OBJECTIVE: PAIN: No c/o pain BED MOBILITY/TRANSFERS Supine-sit: I with HOB at 40 degrees Sit-stand: I Stand-sit: I GAIT Assistive Device: FWW in a.m.; FWW No AD in p.m. Weight bearing: Full Assist: SBA with FWW; CGA without AD Distance: 200' in a.m.; 250' with FWW + 50' without AD in p.m. THEREX: Patient was instructed in a seated, resisted LE strengthening program in a.m., and in a standing LE strengthening program in p.m., as per flow sheet. She utilizes 2.5# ankle weights with seated exercise completion. STAIRS: Up/down 9x4 and 6x6 using B rails and a step-to pattern with supervision ASSESSMENT: Patient was able to tolerate a progression in gait distance with FWW support and SBA. PLAN: Continue with global strengthening and continue progressing gait distance with FWW for improved activity tolerance. TREATMENT CODE/TIME: Session 1: 25 minutes; [id number], [id number] (08:45) Session 2: 30 minutes; [id number], [id number] (11:20)
--- NOTE | 2020-07-16 14:06 | CHAPLAIN ---
Shantel was sitting up in the chair when I visited. She was pleasant and told me that she grew up in [place] and has lived here her whole life. She said her family knows she is here, but she's not been in touch with them and didn't seem interested to be. I explained my role and offered support.
--- NOTE | 2020-07-16 17:36 | CMPROGNOTE_ITS ---
Care Management Progress Note S/O: Shantel was sitting up in her room on M/S, visiting with her niece. She currently has bed offers at [facility] and the [facility]. Trish requested a referral be faxed to Samra Lu at [facility], recommendation. CM continues to follow. A: 60 year old female admitted to [facility] 07/13/20 for Pyelonephritis P: Shantel will likely discharge to SNF when ready per MD. [facility]. Anticipate she will transport via private vehicle with her niece or via RCT. CM continues to follow.
[2020-07-16] MEDS: cefTRIAXone 2 GM/50 ML BAG IVPB (19:55)
[2020-07-16] MEDS: Normal Saline Flush 10 ML SYR IVP (19:55)
[2020-07-17] MEDS: Heparin 5,000 UNITS/ML VIAL 5000 UNITS SC ×3 (01:50→17:59)
[2020-07-17 03:48] VITALS: BP 104/58; PULSE 102; RESP 20; TEMP 37.5; O2SAT 94
[2020-07-17 07:08] LABS: Abs Immature Grans 0.15 10^3/uL (0.0-0.06); Absolute Basophil Count 0.05 10^3/uL (0.0-0.2); Absolute Eosinophil Count 0.15 10^3/uL (0.0-0.7); Basophils % 0.4; Eosinophils % 1.2; HCT 31.3 % (36.0-46.0); HGB 10.9 g/dL (11.2-15.7); Immature Grans % 1.2; Lymphocytes % 12.5; MCH 31.8 pg (27.0-33.0); MCHC 34.8 % (32.0-36.0); MCV 91.3 fL (80-95); MPV 9.5 fL (8.0-11.0); Monocytes % 8.2; Neutrophils % 76.5; Nucleated RBC 0 %; Platelet Count 458 10^3/uL (130-400); RBC 3.43 10^6/uL (3.93-5.22); RDW 13.6 % (11.7-14.6); RDW-SD 45.8 fL; WBC 12.76 10^3/uL (4.4-10.8)
[2020-07-17 07:09] LABS: Absolute Monocyte Count 1.05 10^3/uL (0.1-0.8); Absolute Neutrophil Count 9.76 10^3/uL (1.2-6.7)
[2020-07-17] MEDS: Pantoprazole 40 MG TABCR PO (07:19)
[2020-07-17 07:30] LABS: Anion Gap 8.8 mmol/L (3-11); CO2 25.2 mmol/L (21.0-32.0); CREATININE 1.3 mg/dL (0.55-1.02); Calcium 8.2 mg/dL (8.5-10.1); Chloride 112 mmol/L (98-107); Glucose 109 mg/dL (74-106); Potassium 4.2 mmol/L (3.5-5.1); Sodium 146 mmol/L (136-145)
[2020-07-17 07:39] LABS: BUN 21 mg/dL (7-18)
[2020-07-17 08:10] VITALS: BP 102/61; PULSE 62; RESP 17; TEMP 36.7; O2SAT 96
[2020-07-17] MEDS: Polyethylene Glycol 3350 17 GM PACKET PO (09:06)
[2020-07-17] MEDS: dilTIAZem CD 120 MG CAPCR 240 MG PO (09:07)
[2020-07-17] MEDS: Folic Acid 1 MG TAB PO (09:07)
[2020-07-17] MEDS: Potassium Chloride 10 MEQ CAPCR 20 MEQ PO ×3 (09:07→19:58)
[2020-07-17] MEDS: Citalopram 20 MG TAB PO (09:07)
[2020-07-17] MEDS: Senna TAB 1 TAB PO (09:07)
[2020-07-17] MEDS: LORazepam 1 MG TAB PO (09:07)
[2020-07-17] MEDS: Aspirin E.C. 81 MG TABEC PO (09:07)
[2020-07-17] MEDS: Atorvastatin 40 MG TAB PO (09:08)
[2020-07-17] MEDS: QUEtiapine 25 MG TAB 50 MG PO ×2 (09:08→19:58)
[2020-07-17] MEDS: Gabapentin 100 MG CAP 200 MG PO ×3 (09:08→19:58)
[2020-07-17] MEDS: Multivitamin TAB 1 TAB PO (09:08)
[2020-07-17] MEDS: Cyanocobalamin 500 MCG TAB 1000 MCG PO (09:09)
--- NOTE | 2020-07-17 10:27 | W.PM.PROGNOT ---
Date of Service Date of service: 07/16/20 Time of Service: 10:27 Assessment and Plan Assessment and plan (1) Pyelonephritis: Status: Acute Assessment and plan: continue Rocephin 2 gm daily through the end of the week, then switch to 3rd gen. oral cephalosporin. (2) OLIMPIA (acute kidney injury): Status: Acute Assessment and plan: renal function improving. No longer needs iv fluids. drinking and eating well, at least 1000 mL per day (3) Dementia associated with alcoholism: Status: Chronic Assessment and plan: baseline of dementia d/t CVA and alcoholism however her acute confusion seems to have cleared. cont. her home meds of citalopram, trazodone, and quetiapine. Qualifiers: Dementia behavioral disturbance: without behavioral disturbance Qualified Code(s): F10.27 - Alcohol dependence with alcohol-induced persisting dementia (4) History of CVA (cerebrovascular accident): Status: Chronic Assessment and plan: Continue aspirin therapy. (5) Atrial fibrillation with rapid ventricular response: Status: Acute Assessment and plan: patient is back on her Toprol XL and her afib rate is controlled. at this point she no longer needs telemetry monitoring. (6) DVT prophylaxis: Status: Acute Assessment and plan: Heparin subcutaneously 5000 units every 12 hours. SCD and TIKI brandon Subjective Subjective Interval history since last seen: Patient was discussed on team meeting but patient was not seen by me d/t issues in ICU. Patient has remained stable and continues to improve. She is on Rocephin for urinary tract infection w/ sepsis. Her mental status has cleared back to her baseline of mild cognitive impairment/memory issues d/t her prior alcholism. I would like her to continue her Rocephin for couple more days then switch to po antibiotics for another weeks. CM is working on placement as her family (niece) feels that she can no longer handle her. Objective Last Vital Signs Temp 36.7 C 07/17/20 08:10 Pulse 62 07/17/20 08:10 Resp 17 07/17/20 08:10 BP 102/61 07/17/20 08:10 Pulse Ox 96 07/17/20 08:10 Laboratory Results - last 24 hr 07/17/20 07/17/20 06:50 06:50 WBC 12.76 H RBC 3.43 L Hgb 10.9 L Hct 31.3 L MCV 91.3 MCH 31.8 MCHC 34.8 RDW 13.6 Plt Count 458 H MPV 9.5 Immature Gran % 1.2 Neutrophils % 76.5 Lymphocytes % 12.5 Monocytes % 8.2 Eosinophils % 1.2 Basophils % 0.4 Nucleated RBC % 0 Absolute Neutrophils 9.76 H Absolute Lymphocytes 1.60 Absolute Monocytes 1.05 H Absolute Eosinophils 0.15 Absolute Basophils 0.05 Sodium 146 H Potassium 4.2 Chloride 112 H Carbon Dioxide 25.2 Anion Gap 8.8 BUN 21 H D Creatinine 1.3 H Estimated GFR/1.73 m2 41.50 Glucose 109 H Calcium 8.2 L
--- NOTE | 2020-07-17 10:34 | W.PM.PROGNOT ---
Date of Service Date of service: 07/17/20 Time of Service: 10:34 Assessment and Plan Assessment and plan (1) Pyelonephritis: Status: Acute Assessment and plan: continue Rocephin 2 gm daily through the end of the week, then switch to 3rd gen. oral cephalosporin. pain resolved. no fevers and inflammatory markers are declining (wbc now 12,000) (2) OLIMPIA (acute kidney injury): Status: Acute Assessment and plan: renal function improving. (3) Dementia associated with alcoholism: Status: Chronic Assessment and plan: baseline of dementia d/t CVA and alcoholism however her acute confusion seems to have cleared. cont. her home meds of citalopram, trazodone, and quetiapine. Qualifiers: Dementia behavioral disturbance: without behavioral disturbance Qualified Code(s): F10.27 - Alcohol dependence with alcohol-induced persisting dementia (4) History of CVA (cerebrovascular accident): Status: Chronic Assessment and plan: Continue aspirin therapy and atorvastatin (5) Atrial fibrillation with rapid ventricular response: Status: Acute Assessment and plan: patient is back on her Toprol XL and her afib rate is controlled. at this point she no longer needs telemetry monitoring. (6) DVT prophylaxis: Status: Acute Assessment and plan: Heparin subcutaneously 5000 units every 12 hours. SCD and TIKI brandon (7) Discharge planning issues: Status: Acute Assessment and plan: Case management has made referrals to [facility] and [facility]. I anticipate discharge tomorrow on another week of oral antibiotics Subjective Subjective Interval history since last seen: Patient denies any CP, dyspnea, flank pain or abdominal pain. She states that she has had difficulty having a BM d/t ramachandran. I told her we could get the ramachandran catheter out. Last BM was yesterday, mod. soft green. Patient is on daily Senna and Miralax. Exam Narrative Exam Narrative: Late middle age white female who is alert and oriented Lungs clear Heart: irregularly irregular but controlled rate Abdomen: soft, non-distended, normal bowel sounds, not tender No flank pains Objective Last Vital Signs Temp 36.7 C 07/17/20 08:10 Pulse 62 07/17/20 08:10 Resp 17 07/17/20 08:10 BP 102/61 07/17/20 08:10 Pulse Ox 96 07/17/20 08:10 Laboratory Results - last 24 hr 07/17/20 07/17/20 06:50 06:50 WBC 12.76 H RBC 3.43 L Hgb 10.9 L Hct 31.3 L MCV 91.3 MCH 31.8 MCHC 34.8 RDW 13.6 Plt Count 458 H MPV 9.5 Immature Gran % 1.2 Neutrophils % 76.5 Lymphocytes % 12.5 Monocytes % 8.2 Eosinophils % 1.2 Basophils % 0.4 Nucleated RBC % 0 Absolute Neutrophils 9.76 H Absolute Lymphocytes 1.60 Absolute Monocytes 1.05 H Absolute Eosinophils 0.15 Absolute Basophils 0.05 Sodium 146 H Potassium 4.2 Chloride 112 H Carbon Dioxide 25.2 Anion Gap 8.8 BUN 21 H D Creatinine 1.3 H Estimated GFR/1.73 m2 41.50 Glucose 109 H Calcium 8.2 L
[2020-07-17 11:27] LABS: COVID-19 PCR Negative (Negative)
[2020-07-17] MEDS: Metoprolol CR 50 MG TABCR PO (13:43)
--- NOTE | 2020-07-17 15:22 | PT.INTREAT ---
Date of service: 07/17/20 Time of Service: 15:00 PT Notes Visit Reasons: Pyelonephritis Inpatient Physical Therapy Treatment Note [facility] Date: 07/17/2020 PRECAUTIONS: Activity as tolerated SUBJECTIVE: Shantel is pleasant and agreeable to participating in PT. She states that she is ready to get up and walk around. OBJECTIVE: PAIN: No c/o pain BED MOBILITY/TRANSFERS Supine-sit: I with HOB at 40 degrees Sit-stand: I Stand-sit: I GAIT Assistive Device: No AD Weight bearing: Full Assist: CGA Distance: 400' Deviation: Mild path deviations t/o, no LOB, mildly unsteady THEREX: Patient was instructed in a seated LE strengthening program, as per flow sheet. ASSESSMENT: Patient was able to tolerate a progression in gait distance with out assistive device support, although requires CGA due to path deviation and mild unsteadiness t/o. PLAN: Continue with global strengthening and continue progressing gait distance with least restrictive device for improved activity tolerance and continued progression toward baseline level of function. TREATMENT CODE/TIME: 20 minutes; 31172 (15:00)
[2020-07-17 16:05] VITALS: BP 93/59; PULSE 68; RESP 17; TEMP 36.8; O2SAT 97
[2020-07-17 16:06] VITALS: BP 96/58
[2020-07-17] MEDS: cefTRIAXone 2 GM/50 ML BAG IVPB (19:59)
[2020-07-17] MEDS: Normal Saline Flush 10 ML SYR IVP (19:59)
[2020-07-17 21:45] LABS: Campylobacter PCR Negative (Negative); Salmonella PCR Negative (Negative); Shiga Toxin PCR Negative (Negative); Shigella/Enteroinvasive Ecoli Negative (Negative)
[2020-07-18 00:03] VITALS: BP 107/70; PULSE 72; RESP 17; TEMP 36.6; O2SAT 96
[2020-07-18] MEDS: Heparin 5,000 UNITS/ML VIAL 5000 UNITS SC ×2 (02:03→11:54)
[2020-07-18 06:35] LABS: Abs Immature Grans 0.36 10^3/uL (0.0-0.06); Absolute Neutrophil Count 10.33 10^3/uL (1.2-6.7); Basophils % 0.4; Eosinophils % 2.4; HCT 29.1 % (36.0-46.0); HGB 9.9 g/dL (11.2-15.7); Immature Grans % 2.7; Lymphocytes % 11.3; MCH 31.8 pg (27.0-33.0); MCV 93.6 fL (80-95); MPV 9.6 fL (8.0-11.0); Monocytes % 6.7; Neutrophils % 76.5; Nucleated RBC 0 %; Platelet Count 496 10^3/uL (130-400); RBC 3.11 10^6/uL (3.93-5.22); RDW 14.1 % (11.7-14.6)
[2020-07-18 06:37] LABS: Absolute Basophil Count 0.05 10^3/uL (0.0-0.2); Absolute Eosinophil Count 0.32 10^3/uL (0.0-0.7); Absolute Lymphocyte Count 1.53 10^3/uL (1.2-3.4)
[2020-07-18 06:53] LABS: ALT 14 U/L (14-59); AST 10 U/L (15-37); Albumin 2.2 g/dL (3.4-5.0); Alkaline Phosphatase 72 U/L (46-116); Anion Gap 6.6 mmol/L (3-11); BUN 17 mg/dL (7-18); Bilirubin, Total 0.3 mg/dL (0.2-1.0); C-Reactive Protein 5.38 mg/dL (0.0-0.3); CO2 27.4 mmol/L (21.0-32.0); CREATININE 1.1 mg/dL (0.55-1.02); Calcium 8.1 mg/dL (8.5-10.1); Chloride 111 mmol/L (98-107); Estimated GFR 50.33 (mL/min/1.73m2); Glucose 105 mg/dL (74-106); Potassium 4.4 mmol/L (3.5-5.1); Sodium 145 mmol/L (136-145)
[2020-07-18 07:26] LABS: Procalcitonin 0.2 ng/mL
[2020-07-18 08:12] VITALS: BP 113/72; PULSE 74; RESP 18; TEMP 36.5; O2SAT 95
[2020-07-18] MEDS: Polyethylene Glycol 3350 17 GM PACKET PO (08:15)
[2020-07-18] MEDS: Potassium Chloride 10 MEQ CAPCR 20 MEQ PO ×2 (08:15→14:13)
[2020-07-18] MEDS: Gabapentin 100 MG CAP 200 MG PO ×2 (08:16→14:14)
[2020-07-18] MEDS: Atorvastatin 40 MG TAB PO (08:16)
[2020-07-18] MEDS: Multivitamin TAB 1 TAB PO (08:16)
[2020-07-18] MEDS: Citalopram 20 MG TAB PO (08:16)
[2020-07-18] MEDS: Aspirin E.C. 81 MG TABEC PO (08:16)
[2020-07-18] MEDS: QUEtiapine 25 MG TAB 50 MG PO (08:17)
[2020-07-18] MEDS: dilTIAZem CD 120 MG CAPCR 240 MG PO (08:17)
[2020-07-18] MEDS: Folic Acid 1 MG TAB PO (08:17)
[2020-07-18] MEDS: Cyanocobalamin 500 MCG TAB 1000 MCG PO (08:17)
[2020-07-18] MEDS: Senna TAB 1 TAB PO (08:18)
[2020-07-18] MEDS: Pantoprazole 40 MG TABCR PO (08:18)
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
--- NOTE | 2020-07-18 13:35 | PT.INTREAT ---
Date of service: 07/18/20 Time of Service: 10:35 PT Notes Visit Reasons: Pyelonephritis Inpatient Physical Therapy Treatment Note [facility] Date: 07/18/2020 PRECAUTIONS: Activity as tolerated SUBJECTIVE: Shantel is pleasant and agreeable to participating in PT. She reports that she is feeling well physically, but mentally she is feeling down in the dumps today. OBJECTIVE: PAIN: No c/o pain BED MOBILITY/TRANSFERS Supine-sit: I with HOB at 40 degrees Sit-stand: I Stand-sit: I Bed-chair: S Chair-bed: S GAIT Assistive Device: No AD Weight bearing: Full Assist: CGA-SBA in a.m.; close SBA in p.m. Distance: 200' x2 in a.m.; 900' in p.m. Deviation: Mild path deviations t/o, no LOB, mildly unsteady in both a.m. and p.m.; mild SOB in p.m. THEREX: Patient was instructed in a resisted UE and LE strengthening program, as per flow sheet. All exercises were completed in a standing position. Patient requires close SBA for safety with exercises due to balance impairment. ASSESSMENT: Patient was able to tolerate a progression in her ther ex program, completing all exercises in a standing position. She continues to demonstrate balance impairment, requiring CGA-close SBA with ther ex completion and gait training without an assistive device. PLAN: Continue with global strengthening and continue progressing gait distance with least restrictive device for improved activity tolerance and continued progression toward baseline level of function. TREATMENT CODE/TIME: Session 1: 40 minutes; [id number], [id number] x2 (10:35) Session 2: 15 minutes; [id number] (13:55)
[2020-07-18] MEDS: Metoprolol CR 50 MG TABCR PO (14:14)
== END 2020-07-18 16:17 | disposition swing bed (61) | DRG 872 ==
LOC: ER 16:58 → ICU 17:20 → MS 07-15 14:47
PROVIDERS: Admitting Provider Internal Medicine; Emergency Provider Physician Assistant; PCP Internal Medicine; Visit Provider Internal Medicine
DX: A41.51 Sepsis due to Escherichia coli [E. coli] (principal); N17.9 Acute kidney failure, unspecified; N10 Acute pyelonephritis; F10.27 Alcohol dependence with alcohol-induced persisting dementia; I50.32 Chronic diastolic (congestive) heart failure; G93.40 Encephalopathy, unspecified; R65.20 Severe sepsis without septic shock; I48.91 Unspecified atrial fibrillation; Z79.82 Long term (current) use of aspirin; Z86.73 Personal history of transient ischemic attack (TIA), and cerebral infarction without residual deficits; D25.9 Leiomyoma of uterus, unspecified; F41.8 Other specified anxiety disorders; R91.8 Other nonspecific abnormal finding of lung field; E03.9 Hypothyroidism, unspecified; Z91.19 Patient's noncompliance with other medical treatment and regimen; F17.210 Nicotine dependence, cigarettes, uncomplicated; B96.20 Unspecified Escherichia coli [E. coli] as the cause of diseases classified elsewhere; D64.9 Anemia, unspecified; E53.8 Deficiency of other specified B group vitamins; Z20.822 Contact with and (suspected) exposure to COVID-19
CPT/HCPCS: 36415; 51701; 76770; 80048; 80053; 80307; 83690; 84145; 87040; 87077; 87493; 87505; 87635; 93005; 96360; 96361; 96365; 96366; 97110; 97162; 97530; 99291; 70450; 71046; 74176; 80320; 81003; 81015; 83605; 83630; 83735; 84443; 84484; 85025; 85610; 85730; 86140; 87086; 87186; 93010; 99231; 99232; 99239; J1644; J1720; J1956

== ENCOUNTER 2020-07-18 16:24 | Inpatient (IN) | payer MEDICARE, MEDICAID, SELFPAY ==
--- NOTE | 2020-07-18 14:46 | W.PM.HP.N ---
Date of service: 07/18/20 Time of Service: 14:46 Assessment and Plan Assessment and plan (1) Pyelonephritis: Status: Acute Assessment and plan: today is day #6 of her antibiotics (she has Levaquin 750 mg on 07/13, then Meropenem and Vancomycin through 07/15 then Rocephin from 07/15 to present). She should complete 10 to 14 days of antibiotics for pyelonephritis and E.coli sepsis/bacteremia. Her inflammatory markers are way down. procalcitonin has normalized but she still has a mild leukocytosis. given that Levaquin has multiple interactions w/ her psychiatric meds, I elected to just keep her on Rocephin 2 gm while she is an inpatient on swing. She only need 4 more days after today. (2) Anemia: Status: Acute Assessment and plan: patient is on protonix for gi protection. I will check her stool for occult blood and check iron studies and B12 levels. She historically had a B12 deficiency but I believe this was related to her alcoholism and now she is abstinent. She will get repeat CBC on Tuesday along w/ repeat CRP. Qualifiers: Anemia type: unspecified type Qualified Code(s): D64.9 - Anemia, unspecified (3) Atrial fibrillation: Status: Chronic Assessment and plan: her afib rate has been well controlled on Toprol XL and Diltiazem. Because of her MCI and frequent falls she probably is not a good candidate for director long term care anticoagulation. However if P.T. finds that her gait and balance remains steady, I think that anticoagulation therapy should be re-discussed as she has hx of CVA and is high risk for a repeat event. Her CHADS-VASc score is 4 which puts her at high risk for embolic stroke at 4% per year. If she is not a candidate for senior care anticoagulation then she ought to be considered for Watchman procedure. Given her age and her already MCI she should not be allowed to suffer another stroke. Qualifiers: Atrial fibrillation type: persistent (not longstanding) Qualified Code(s): I48.19 - Other persistent atrial fibrillation (4) Urinary incontinence: Status: Chronic Assessment and plan: will ask urology next week to see her for advice on incontinence training Qualifiers: Urinary Incontinence type: urinary incontinence without sensory awareness Qualified Code(s): N39.42 - Incontinence without sensory awareness (5) Uterine fibroid: Status: Chronic Assessment and plan: will ask gynecology to see her. This does not necessarily need worked up while in swing bed but I would like her to get connected w/ gynecology to follow her as outpatient (6) History of CVA (cerebrovascular accident): Status: Chronic Assessment and plan: will keep on low dose ASA for now; control her afib rate then re-consider senior care anticoagulation (7) Dementia associated with alcoholism: Status: Chronic Assessment and plan: No behaviorial issues since her acute metabolic encephalopathy cleared w/ resolution of her sepsis. cont her current psychiatric meds (Celexa and Seroquel) Qualifiers: Dementia behavioral disturbance: without behavioral disturbance Qualified Code(s): F10.27 - Alcohol dependence with alcohol-induced persisting dementia History of Present Illness History of Present Illness Chief Complaint: pyelonephritis Narrative: 60 yr old female w/ PMH of alcohol abuse/withdrawal who has been in remission since August 2019 after hospitalized for acute withdrawal, w/ respiratory failure and prolonged hospitalization here and at [facility] and subsequently treated in alcohol rehab center in [place], [place]. She has been living w/ her niece, Trish Estrada since 2019. Patient was admitted to [facility] 07/13 for acute delirium, weakness, fever, rigors and frequent falls and was found to have bilateral pyelonephritis. Blood and urine cultures grew E. coli which is pansensitive. She was in sepsis w/ OLIMPIA and hypotensive. See my H&P and discharge summary from 07/13 and 07/18 for details. She was successfully treated w/ broad spectrum antibiotics (Levaquin in the ER and initially Meropenem and Vancomcyin then switched to Rocephin). Blood cultures cleared on 07/15. I was going to switch her to finish antibiotic therapy w/ Levaquin however d/t multiple psychiatric meds (she has mild cognitive impairment from prior CVA and alcoholic encephalopathy) Levquin can cause significant QTc prolongation. Patient was receiving P.T. while an inpatient and has done very well. Her niece has expressed concerns that she can no longer care for her aunt at home. The patient has been referred to various area SNF including [facility], [facility] in [place], and [facility] She had a tentative offer from [facility] and [facility] but neither could take her before the weekend and can not take her over the weekend. She will remain in SNF at [facility] until early next week when hopefully she can go to an assisted living center. Review of Systems All systems reviewed & are unremarkable except as noted in HPI and below Constitutional Constitutional: Reports system reviewed and no additional complaints, except as documented Cardiovascular Cardiovascular: Reports system reviewed and no additional complaints, except as documented Respiratory Respiratory: Reports system reviewed and no additional complaints, except as documented Gastrointestinal Gastrointestinal: Denies abdominal pain, Denies constipation, Denies diarrhea and Denies nausea Genitourinary Genitourinary: Denies dysuria, Denies pelvic pain and Reports urinary incontinence [facility] Medical History Acute exacerbation of CHF (congestive heart failure) Alcohol abuse Alcohol abuse Alcohol withdrawal delirium, acute, hyperactive Anxiety and depression (08/06/14) Aspiration pneumonia Atrial fibrillation Atrial fibrillation with rapid ventricular response Bilateral pleural effusion Chest pain Chronic diastolic CHF (congestive heart failure) Depression History of alcohol abuse Lip laceration Lower extremity weakness Medical non-compliance Opiate addiction (08/06/14) in recovery. weaned off suboxone through [facility] 05/05/14 Pericardial effusion Pericardial effusion Pulmonary nodules Respiratory failure SAH (subarachnoid hemorrhage) Subclinical hypothyroidism Tobacco abuse (07/07/17) Surgical History bunionectomy lamontangen a few years ago 2005ish History of bilateral tubal ligation Family History Mother Diabetes Essential hypertension Personal history of malignant neoplasm lung, breast CA Father No problems noted. Sister Essential hypertension Sister No problems noted. Brother No problems noted. Maternal Aunt Personal history of malignant neoplasm breast Social History Smoking/Tobacco Use Status: Current every day Tobacco Type: cigarettes Smoking risk assessment performed?: Yes Alcohol Intake: former Drug use: Never Substance use type: does not use Details: Pt reports half a beer today. Household members: family Number of Children: 2 Communication Needs: Corrective Lenses Education Level: high school Do you need help understanding health information?: Often Current gender identity: female What is your relationship status?: Panel score (0-1 are the most socially isolated patients): 0 Seatbelt use: always Working smoke detector in home: Yes Fire extinguisher in home: Yes Carbon monox detector in home: Yes Do you feel safe at home: Yes Do you feel safe in your relationship?: Yes Meds Allergies and Home Medications Allergies Allergy/AdvReac Type Severity Reaction Status Date / Time No Known Allergies Allergy Verified 07/13/20 11:36 Home Medications Medication Instructions Recorded Confirmed Type cyanocobalamin (vitamin B-12) 1,000 mcg PO DAILY #30 tab 04/18/19 07/13/20 Rx [Vitamin B-12] multivitamin [Multiple Vitamins] 1 tab PO DAILY #30 tab 04/18/19 07/13/20 Rx aspirin 81 mg PO DAILY #0 tab 08/17/19 07/13/20 Rx atorvastatin 40 mg PO DAILY #30 tab 08/17/19 07/13/20 Rx acetaminophen 500 mg tablet 1,000 mg PO TID PRN PRN tab 02/26/20 07/13/20 History bisacodyl 10 mg rectal suppository 10 mg [place] DAILY PRN 02/26/20 07/13/20 History melatonin 3 mg tablet 6 mg PO HS PRN tab 02/26/20 07/13/20 History ondansetron HCl 4 mg tablet 4 mg PO Q8H PRN 02/26/20 07/13/20 History citalopram 20 mg tablet 20 mg PO DAILY #90 tab 02/27/20 07/13/20 Rx diltiazem HCl 240 mg 240 mg PO DAILY #90 cap 02/27/20 07/13/20 Rx capsule,extended release 24 hr folic acid 1 mg tablet 1 mg PO DAILY #90 tab 02/27/20 07/13/20 Rx gabapentin 100 mg capsule 200 mg PO TID #540 cap 02/27/20 07/13/20 Rx pantoprazole 40 mg tablet,delayed 40 mg PO DAILY #90 tab 02/27/20 07/13/20 Rx release polyethylene glycol 3350 17 gram 17 g PO DAILY #100 ea 02/27/20 07/13/20 Rx oral powder packet quetiapine 50 mg tablet 50 mg PO BID #180 tab 02/27/20 07/13/20 Rx sennosides 8.6 mg tablet 8.6 mg PO DAILY #90 tab 02/27/20 07/13/20 Rx trazodone 150 mg tablet See Rx Instructions PO QHS PRN #45 02/27/20 07/15/20 Rx tab lorazepam 1 mg tablet 1 mg PO BID PRN #4 tab 05/28/20 07/13/20 Rx metoprolol succinate [Toprol XL] 50 mg PO DAILY #90 tab 07/18/20 07/13/20 Rx Exam Const General: cooperative, healthy appearing, comfortable, no acute distress, well developed and well groomed Nutritional Appearance: average body habitus Orientation: alert, awake, oriented to person and oriented to place [facility] Head: normal to inspection, no palpable skull fracture, normocephalic and atraumatic Ears: hearing grossly normal bilaterally General nose exam: external nose normal and nares normal Face and sinus: normal facial exam Mouth: oral mucosae normal Throat: posterior oropharynx normal Eyes General: appearance normal, both eyes and all related structures Visual Khan: normal visual khan by confrontation Alignment and Position: alignment normal Periorbital: periorbital findings normal Eyelids: eyelids normal Conjunctivae: conjunctivae normal Cornea: corneas normal EOM: EOM intact bilaterally Neck Neck: normal visual inspection, no lymphadenopathy, no meningeal signs, trachea midline, supple and no JVD Carotids: normal carotid upstroke Lymphatic: no lymphadenopathy noted Resp Effort & Inspection: normal respiratory effort and able to speak in complete sentences Auscultation: clear to auscultation bilaterally Percussion: percussion normal Cardio Jugular venous pressure: no JVD Palpation: normal PMI Rate: regular rate Rhythm: abnormal rhythm irregularly irregular Heart Sounds: no murmurs Bruits: no abdominal aortic bruits Pulses: brachial pulses present, radial pulses present, femoral pulses present, popliteal pulses present, posterior tibial pulses present, dorsalis pedis present and normal peripheral pulses GI Inspection: normal to inspection Palpation: soft, no hepatosplenomegaly and nontender Percussion: normal to percussion General: No CVA tenderness Back/Spine/Pelvis Back: no CVA tenderness Cervical Spine: cervical ROM normal Thoracic/Lumbar Spine: thoracic and lumbar spine normal to inspection Skin General skin exam: no rashes or lesions noted and elasticity normal Lesions: no lesions Rashes: no rashes Wounds: no wounds Hair: normal Nails: normal Neuro General: patient alert, patient awake and oriented Patient Orientation: Person and Place Cranial Nerves: CN's II-XI intact bilaterally Cognition: abnormal cognition (mild memory loss; poor recall; but otherwise oriented and appropriate) Speech: speech normal Gait: normal gait Motor: muscle tone normal throughout Sensory Exam: no sensory deficits noted Extrem General: normal to inspection, full ROM and capillary refill normal Psych Appearance: grossly normal and well kempt Speech and Movement: speech and movement normal Mood: congruent mood Affect: normal affect Attitude: cooperative Thought Process: normal Thought Content: normal COVID-19 Screening Have you, or household traveled for leisure in last 14 days?: No
[2020-07-18 15:35] VITALS: BP 106/63; PULSE 64; RESP 17; TEMP 36.4; O2SAT 96
--- NOTE | 2020-07-18 17:53 | CM.SWINGPC ---
- If Service Date Differs Date of service: 07/18/20 Time of Service: 17:54 Swingbed Plan of Care Plan of care: SWING BED PROGRAM ACTIVITIES/DISCHARGE PLAN OF CARE ACTIVITIES PLAN Date: 07/18/20 Identified Need: Life enrichment during extended hospitalization. Intervention/Plan: Books, magazines, family visits, television, soft cart items. Initials [facility] DISCHARGE PLAN Date: Identified Need: Progress mobility Intervention/Plan: Continued rehab with PT until SNF able to admit. Initials [facility]
--- NOTE | 2020-07-18 18:01 | CMSA_ITS ---
- If Service Date Differs Date of service: 07/18/20 Time of Service: 18:02 SB Psychosocial/Act.Assessment - Hospital Admission Admission Date: 07/13/20 Admission From:: Home Diagnosis:: Pyelonephritis - Swing Bed Admission Swing Bed Admit Date:: 07/18/20 Swing Bed Level of Care: Level 1/SNF - Social Supports PREVIOUS FUNCTIONAL STATUS/SOCIAL/FAMILY SUPPORTS:: Shantel is previously well known to this investigative writer with 18 visits to [facility] in 2019. She was transferred to [facility] upon her last admission about a year ago. Per MD assessment, she spent much of the summer of 2019 at [facility] and subsequently went to the acute alcohol treatment inpatient facility in [facility] and was discharged back to [place] to the care of her niece and guardian, Trish Estrada. She has suffered from cognitive impairment secondary to alcoholic dementia as well as CVA. Since her prolonged hospitalization and subsequent prolonged rehab stay she has had problems with urinary incontinence felt to be due to prolonged Peterson catheter placement. Her PCP had been working on voiding trials. CM spoke with Trish, her niece and guardian who reported Shantel has become weaker and had a few falls recently. She reports feeling Maura could benefit from S/T rehab at this time, with possible consideration for terminal clerk placement, though she worries Maura will prefer to return home. She reports struggling with having a great Aunt/Niece relationship and not wanting that to become effected by increased caregiver relationship needs. - Prior to Admission Living Arrangements/Environment Prior to Admission:: With niece and guardian, Trish and Trish's Bret and their teenage daughter. Shantel has LTM support services in the home. - Benefits Financial: Medicare, Medicaid - Holiness Active [employer] Member:: No - Advance Directives for Healthcare Advance Directives for Healthcare: Advance Directives Advance Directive Agent: Guardian: Trish Estrada - Present Functional Status Physical Abilities:: Noted to have balance issues and requires support with ambulation. Cognitive:: Some delay and decline noted r/t terminal clerk use of alcohol Communication:: Appropriate, deficits due to cognitive decline r/t terminal clerk use of alcohol. Behavior:: Friendly, forthcoming. - Medical History PAST MEDICAL HISTORY/PAST SURGICAL HISTORY:: Acute exacerbation of CHF (congesti ve heart failure). Alcohol abuse. Alcohol withdrawal delirium, acute, hyperactive. Anxiety and depression (08/06/14). Aspiration pneumonia. Atrial fibrillation. Atrial fibrillation with rapid ventricular response. Bilateral pleural effusion. Chest pain. Chronic diastolic CHF (congestive heart failure). Depression. History of alcohol abuse. Lip laceration. Lower extremity weakness. Medical non-compliance. Opiate addiction (08/06/14). in recovery. weaned off suboxone through [facility] 05/05/14. Pericardial effusion. Pulmonary nodules. Respiratory failure. SAH (subarachnoid hemorrhage). Subclinical hypothyroidism. Tobacco abuse (07/07/17). bunionectomy. lamontangen a few years ago 2005ish. History of bilateral tubal ligation - Admission Data Reason for Swing Bed Admission:: Awaiting bed availability at [facility]. Discharge Plan:: To [facility] via private vehicle on Tuesday, 1. Assessment: Weekend swing bed for ongoing rehab awaiting [facility] to SNF admission on Tuesday. Php Wordpress Developer: Kaye Scott Date Assessment was completed:: 07/18/20
[2020-07-18] MEDS: QUEtiapine 25 MG TAB 50 MG PO (20:04)
[2020-07-18] MEDS: Gabapentin 100 MG CAP 200 MG PO (20:04)
[2020-07-18] MEDS: Normal Saline Flush 10 ML SYR IVP (20:08)
[2020-07-18] MEDS: cefTRIAXone 2 GM/50 ML BAG IVPB (20:09)
[2020-07-18] MEDS: Normal Saline 500 ML 30 ML IV (20:10)
[2020-07-19 00:07] VITALS: BP 120/77; PULSE 67; RESP 16; TEMP 36.5; O2SAT 95
[2020-07-19 07:49] LABS: Iron 42 ug/dL (50-170); Total Iron Binding Capacity 188 ug/dL (250-450); Transferrin Sat 22 % (15-50); Vitamin B12 692 pg/mL (193-986)
[2020-07-19 07:52] VITALS: BP 121/74; PULSE 70; RESP 17; TEMP 36.6; O2SAT 97
[2020-07-19 07:56] LABS: Folate > 20.0 ng/mL (8.6-20.0)
--- NOTE | 2020-07-19 08:21 | PT.INIE ---
Date of service: 07/19/20 Time of Service: 08:30 PT Notes Visit Reasons: PYELONEPHRITIS Inpatient Physical Therapy Swingbed Evaluation Date: 07/19/20 Referring Doctor: Angelito Davey MD PT Orders: PT CONSULT: Extended Stay - weakness Precautions: Fall. Standard. Activity as tolerated. Patient Profile/Admitting Diagnosis: Shantel is a 61-year-old female who presented to the ED on 07/13/2020 with worsening abdominal pain that started 2 weeks ago, generalized weakness, altered mental status, and increased confusion.? Patient is diagnosed with sepsis, pyelonephritis, kidney injury and atrial fibrillation with rapid ventricular response. As of 07/18/20 patient was transitioned to swing bed level 1 for ongoing weakness until placement can be made next week. PMHX: Medical History Acute exacerbation of CHF (congestive heart failure) Alcohol abuse Alcohol withdrawal delirium, acute, hyperactive Anxiety and depression (08/06/14) Aspiration pneumonia Atrial fibrillation Atrial fibrillation with rapid ventricular response Bilateral pleural effusion Chest pain Chronic diastolic CHF (congestive heart failure) Depression History of alcohol abuse Lip laceration Lower extremity weakness Medical non-compliance Opiate addiction (08/06/14) Pericardial effusion Pericardial effusion Pulmonary nodules Respiratory failure SAH (subarachnoid hemorrhage) Subclinical hypothyroidism Tobacco abuse (07/07/17) Surgical History? bunionectomy lamontangen History of bilateral tubal ligation Social History/Home Situation: Lives with niece and guardian in private home with 4 cemented steps that lead to top and another 4-5 steps to the entrance of the house, rails on both set of steps.? Independent with all aspects of ADLs prior to admission without the need for an assistive ambulatory device nor adaptive equipment.? No longer drives. Equipment Owned/DME: None Subjective: Cleared by nursing to see patient and patient is agreeable to PT. Patient was resting in bed at time of consult and easily aroused. She declined additional exercises today. Patient left sitting up in chair with call light in reach and breakfast tray. Nursing notified of patient location. Objective: General Observation: Pleasant and alert Mental Status: A&O x3 Pain: 0/10 ROM: Right Upper Extremity: Shoulder Flexion WFL. Shoulder abduction WFL. Elbow flexion WFL. Wrist flexion WFL. Opening and closing of hand WFL. Left Upper Extremity: Shoulder Flexion WFL. Shoulder abduction WFL. Elbow flexion WFL. Wrist flexion WFL. Opening and closing of hand WFL. Right Lower Extremity: Hip flexion WFL. Hip abduction WFL. Knee flexion WFL. Ankle dorsiflexion WFL. Ankle plantarflexion WFL. Left Lower Extremity: Hip flexion WFL. Hip abduction WFL. Knee flexion WFL. Ankle dorsiflexion WFL. Ankle plantarflexion WFL. Strength: Right Upper Extremity: Shoulder flexors 5/5. Shoulder abductors 5/5. Elbow flexors 5/5. Elbow extensors 5/5. Animal Caretaker strong. Left Upper Extremity: Shoulder flexors 5/5. Shoulder abductors 5/5. Elbow flexors 5/5. Elbow extensors 5/5. Animal Caretaker strong. Right Lower Extremity: Hip flexors 5/5. Hip abductors 5/5. Knee flexors 5/5. Knee extensors 5/5. Ankle dorsiflexors 5/5. Ankle plantarflexors 5/5. Left Lower Extremity: Hip flexors 5/5. Hip abductors 5/5. Knee flexors 5/5. Knee extensors 5/5. Ankle dorsiflexors 5/5. Ankle plantarflexors 5/5. Sensation: Intact as to pain and pressure on bilateral lower extremities. Bed Mobility/Transfers: Rolling: Independent Supine to sit: Independent Sit to supine: Independent Sit to stand: Independent Stand to sit: Independent Gait: Ambulated 550 ft without assistive device and SBA. Mild path deviation and decreased foot clearance on right. No loss of balance Stairs: Ascend & descend three 4 steps and two 6 steps x 3 using alternating gait with decreasing use of upper extremity support, poorer control descending Balance: Static Sitting: Normal Dynamic Sitting: Normal Static Standing: Good Dynamic Standing: Fair Special Tests: Mobility Limitations Standardized Measure [facility] 6 clicks Basic Mobility Inpatient Short Form: Raw Score: 24 CMS Score: 0 Informed Consent/Education: Patient instructed in purpose of PT consult and plan of care. Assessment: Patient presents with clinical signs and symptoms consistent with current/admitting diagnoses that have resulted to mobility limitations, gait instability, generalized weakness, and impairment of motor control as demonstrated by the following impairment level findings: 1.? Impaired dynamic standing balance 2.? Impaired activity tolerance Impairments are contributing to the following functional limitations: 1. Increase completion time for mobility ADL performance 2. Increased fall risk 3. Inability to return to prior living environment at this time Patient is assessed as a Low complexity based on the following: History: 60 year old female with impairment level findings, functional limitations, and past medical history as indicated above Examination: Demonstrable impairment in strength, balance, and mobility level with underlying impairments and functional limitations as documented above Presentation: Stable Decision Making: Moderate complexity Goals: Goals x1 week 1. Supine-Sit: independent 2. Sit-Supine: independent 3. Sit-Stand: independent 4. Stand-Sit: independent 5. Bed-Chair: independent 6. Chair-Bed: independent 7. Independent gait on level surface without assistive device for at least 1000 feet without report of pain nor dyspnea 8. Independent stair negotiation while holding onto single rail for at least 10 steps without report of pain nor dyspnea 9. Independent with home exercise program 10. Good dynamic standing balance/tolerance Plan of Care/Treatment Plan: 1-2x/day, 7 days/week x 1 week. Plan of care has been reviewed with the BUSINESS BANKING SALES ASSISTANT providing the service under Physical Therapy direction. Initiate Physical Therapy intervention for strengthening, bed mobility, transfers, gait, stairs, balance training, and use of assistive device. DISCHARGE RECOMMENDATIONS: SNF due to inability to independently care for self TREATMENT CODE/TIME: 8:30-8:55 (25 minutes), [id number], [id number] Thank you for the opportunity to participate in the care of this patient. Viry Díaz, PT, DPT, OCS [facility] [place], [place]
[2020-07-19] MEDS: Folic Acid 1 MG TAB PO (09:05)
[2020-07-19] MEDS: Polyethylene Glycol 3350 17 GM PACKET PO (09:05)
[2020-07-19] MEDS: Cyanocobalamin 500 MCG TAB 1000 MCG PO (09:05)
[2020-07-19] MEDS: QUEtiapine 25 MG TAB 50 MG PO ×2 (09:06→19:41)
[2020-07-19] MEDS: Gabapentin 100 MG CAP 200 MG PO ×3 (09:06→19:41)
[2020-07-19] MEDS: Aspirin E.C. 81 MG TABEC PO (09:06)
[2020-07-19] MEDS: Multivitamin TAB 1 TAB PO (09:06)
[2020-07-19] MEDS: Atorvastatin 40 MG TAB PO (09:07)
[2020-07-19] MEDS: Senna TAB 1 TAB PO (09:07)
[2020-07-19] MEDS: dilTIAZem CD 120 MG CAPCR 240 MG PO (09:07)
[2020-07-19] MEDS: Citalopram 20 MG TAB PO (09:07)
[2020-07-19] MEDS: Pantoprazole 40 MG TABCR PO (09:07)
[2020-07-19 15:30] VITALS: BP 92/58; PULSE 60; RESP 17; TEMP 36.8; O2SAT 97
[2020-07-19] MEDS: Normal Saline Flush 10 ML SYR IVP (19:42)
[2020-07-19] MEDS: cefTRIAXone 2 GM/50 ML BAG IVPB (19:42)
[2020-07-19 19:52] VITALS: BP 110/67; PULSE 67; RESP 16; TEMP 37.2; O2SAT 97
--- NOTE | 2020-07-20 02:24 | NUR.NOTE ---
pt sleeping comfortably self repositioned. Nursing Note:
[2020-07-20 07:52] VITALS: BP 106/68; PULSE 68; RESP 17; TEMP 36.9; O2SAT 96
[2020-07-20] MEDS: Folic Acid 1 MG TAB PO (08:32)
[2020-07-20] MEDS: Polyethylene Glycol 3350 17 GM PACKET PO (08:32)
[2020-07-20] MEDS: Multivitamin TAB 1 TAB PO (08:33)
[2020-07-20] MEDS: Pantoprazole 40 MG TABCR PO (08:33)
[2020-07-20] MEDS: dilTIAZem CD 120 MG CAPCR 240 MG PO (08:33)
[2020-07-20] MEDS: Cyanocobalamin 500 MCG TAB 1000 MCG PO (08:33)
[2020-07-20] MEDS: Senna TAB 1 TAB PO (08:33)
[2020-07-20] MEDS: QUEtiapine 25 MG TAB 50 MG PO ×2 (08:33→19:59)
[2020-07-20] MEDS: Atorvastatin 40 MG TAB PO (08:34)
[2020-07-20] MEDS: Gabapentin 100 MG CAP 200 MG PO ×3 (08:34→19:59)
[2020-07-20] MEDS: Citalopram 20 MG TAB PO (08:34)
[2020-07-20] MEDS: Aspirin E.C. 81 MG TABEC PO (08:34)
--- NOTE | 2020-07-20 09:49 | PTTR_ITS ---
PT Notes Visit Reasons: PYELONEPHRITIS 07/20/2020 SUBJECTIVE: Pt does not really want to participate in PT today but she does eventually agree. She notes she is anxious to find out her plans for discharge tomorrow. OBJECTIVE: TRANSFERS Supine to sit: I Sit to stand: I Stand to sit: I GAIT 260' No AD, SBA, mild path deviation STAIRS 9-4 steps, 6-6 steps, 2 rails, step over pattern, SBA ASSESSMENT: Only mild path deviation with gait today. No difficulty with stair navigation. She continues to be anxious about where she is going after leaving the hospital. PLAN: Continue per POC. Treatment time: 15' [id number] Katerin Lowry, SENIOR LEAD SOFTWARE ENGINEER
[2020-07-20 14:24] VITALS: BP 92/65; PULSE 63; RESP 16; TEMP 36.5; O2SAT 96
[2020-07-20] MEDS: Normal Saline 500 ML 30 ML IV (20:00)
[2020-07-20] MEDS: Normal Saline Flush 10 ML SYR IVP (20:00)
[2020-07-20] MEDS: cefTRIAXone 2 GM/50 ML BAG IVPB (20:00)
[2020-07-20] MEDS: Melatonin 3 MG TAB 6 MG PO (21:07)
[2020-07-20] MEDS: traZODone 50 MG TAB 75 MG PO (21:08)
[2020-07-20] MEDS: LORazepam 1 MG TAB PO (23:22)
[2020-07-20 23:30] VITALS: BP 108/78; PULSE 63; RESP 18; TEMP 36.6; O2SAT 95
[2020-07-21 06:40] LABS: Abs Immature Grans 0.14 10^3/uL (0.0-0.06); Absolute Basophil Count 0.09 10^3/uL (0.0-0.2); Absolute Eosinophil Count 0.24 10^3/uL (0.0-0.7); Absolute Lymphocyte Count 1.32 10^3/uL (1.2-3.4); Absolute Monocyte Count 0.86 10^3/uL (0.1-0.8); Absolute Neutrophil Count 9.14 10^3/uL (1.2-6.7); Basophils % 0.8; HCT 30.4 % (36.0-46.0); Immature Grans % 1.2; Lymphocytes % 11.2; MCH 31.3 pg (27.0-33.0); MCHC 32.9 % (32.0-36.0); MCV 95.3 fL (80-95); Monocytes % 7.3; Neutrophils % 77.5; Nucleated RBC 0 %; Platelet Count 529 10^3/uL (130-400); RBC 3.19 10^6/uL (3.93-5.22); RDW 13.8 % (11.7-14.6); RDW-SD 48.3 fL; WBC 11.79 10^3/uL (4.4-10.8)
[2020-07-21 06:58] LABS: ALT 14 U/L (14-59); AST 10 U/L (15-37); Albumin 2.5 g/dL (3.4-5.0); Alkaline Phosphatase 80 U/L (46-116); Anion Gap 8.3 mmol/L (3-11); BUN 9 mg/dL (7-18); Bilirubin, Total 0.3 mg/dL (0.2-1.0); CO2 27.7 mmol/L (21.0-32.0); CREATININE 1.1 mg/dL (0.55-1.02); Calcium 8.6 mg/dL (8.5-10.1); Chloride 111 mmol/L (98-107); Estimated GFR 50.33 (mL/min/1.73m2); Glucose 110 mg/dL (74-106); Potassium 3.9 mmol/L (3.5-5.1); Sodium 147 mmol/L (136-145); Total Protein 6.6 g/dL (6.4-8.2)
[2020-07-21] MEDS: Pantoprazole 40 MG TABCR PO (07:36)
[2020-07-21 07:37] VITALS: BP 94/58; PULSE 75; RESP 18; TEMP 36.7; O2SAT 93
[2020-07-21] MEDS: dilTIAZem CD 120 MG CAPCR 240 MG PO (08:36)
[2020-07-21] MEDS: Multivitamin TAB 1 TAB PO (08:36)
[2020-07-21] MEDS: Polyethylene Glycol 3350 17 GM PACKET PO (08:36)
[2020-07-21] MEDS: Cyanocobalamin 500 MCG TAB 1000 MCG PO (08:36)
[2020-07-21] MEDS: Senna TAB 1 TAB PO (08:36)
[2020-07-21] MEDS: Atorvastatin 40 MG TAB PO (08:37)
[2020-07-21] MEDS: QUEtiapine 25 MG TAB 50 MG PO (08:37)
[2020-07-21] MEDS: Aspirin E.C. 81 MG TABEC PO (08:37)
[2020-07-21] MEDS: Gabapentin 100 MG CAP 200 MG PO (08:37)
[2020-07-21] MEDS: Citalopram 20 MG TAB PO (08:37)
[2020-07-21] MEDS: Folic Acid 1 MG TAB PO (09:07)
--- NOTE | 2020-07-21 09:57 | DSE_ITS ---
Date of service: 07/21/20 Time of Service: 10:05 DS: Diagnosis Discharge Diagnosis (1) Pyelonephritis: Start date: 07/21/20 Start time: 10:06 Status: Acute Asessment and Plan: Transition to cefpodoxime BID x 11 more doses. she should compelete total of 14 days of antibiotics for pyelonephritis and E.coli sepsis/bacteremia. Her inflammatory markers are way down. procalcitonin has normalized. given that Levaquin has multiple interactions w/ her psychiatric meds will continue a ceflasporin (2) Anemia: Start date: 07/21/20 Start time: 10:10 Status: Acute Asessment and Plan: On GI protection. Protonix historically b12 deficiency likely related to alcoholism in abstinence she is now normal (3) Atrial fibrillation: Start date: 07/21/20 Start time: 10:12 Status: Chronic Asessment and Plan: her afib rate has been well controlled on Toprol XL and Diltiazem.? Because of her MCI and frequent falls she probably is not a good candidate for half-way anticoagulation. However if P.T. finds that her gait and balance remains steady, she has hx of CVA and is high risk for a repeat event. Her CHADS-VASc score is 4 which puts her at high risk for embolic stroke at 4% per year. If she is not a candidate for half-way anticoagulation then she ought to be considered for Watchman procedure. Given her age and her already MCI she should not be allowed to suffer another stroke. (4) Urinary incontinence: Start date: 07/21/20 Start time: 10:13 Status: Chronic Asessment and Plan: f/u with urology as an outpatient for incontinence (5) Uterine fibroid: Start date: 07/21/20 Start time: 10:14 Status: Chronic Asessment and Plan: this can be see as an outpatient and follow up by gynecology as an outpatient. (6) History of CVA (cerebrovascular accident): Start date: 07/21/20 Start time: 10:15 Status: Chronic Asessment and Plan: low dose asa control afib as above (7) Dementia associated with alcoholism: Start date: 07/21/20 Start time: 10:15 Status: Chronic Asessment and Plan: No behaviorial issues since her acute metabolic encephalopathy cleared w/ resolution of her sepsis. cont her current psychiatric meds (Celexa and Seroquel) discussed with Dr. Parker Discharge Plan Disposition Patient Disposition: ICF (LEVEL 2) [facility] Condition: Improving Discharge Details Reason For Visit: PYELONEPHRITIS Admit Date/Time: 07/18/20 16:24 Admit Provider: Angelito Davey Attending Provider: Angelito Davey Primary Care Provider: Romelia Crooks Hospital Course Hospital Course: 60 yr old female w/ PMH of alcohol abuse/withdrawal who has been in remission since August 2019 after hospitalized for acute withdrawal, w/ respiratory failure and prolonged hospitalization here and at [facility] and subsequently treated in alcohol rehab center in [place], [place]. She has been living w/ her niece, Trish Estrada since 2019. Patient was admitted to [facility] 07/13 for acute delirium, weakness, fever, rigors and frequent falls and was found to have bilateral pyelonephritis. Blood and urine cultures grew E. coli which is pansensitive. She was in sepsis w/ OLIMPIA and hypotensive. See H&P and discharge summary from 07/13 and 07/18 for details. Successfully she was treated w/ broad spectrum antibiotics (Levaquin in the ER and initially Meropenem and Vancomcyin then switched to Rocephin). Blood cultures cleared on 07/15. Transitioned to cefpodoxime for outpatient dosing will require an additional 11 more doses. Patient was receiving P.T. while an inpatient and has done very well. Her niece has expressed concerns that she can no longer care for her aunt at home. Patient has been referred to various area [facility] including [facility], [facility], [facility] in [place], and [facility]. She has been accepted to [facility]. She is being discharged from today to the [facility]. She is doing well. Home Meds and New Rx's Prescriptions: New cefpodoxime 200 mg Tablet 400 mg PO Q12H Qty: 11 RF: 0 Continued citalopram [Celexa] 20 mg tablet 20 mg PO DAILY Qty: 90 RF: 1 diltiazem HCl [Cardizem CD] 240 mg capsule,extended release 24hr 240 mg PO DAILY Qty: 90 RF: 1 folic acid 1 mg tablet 1 mg PO DAILY Qty: 90 RF: 1 gabapentin 100 mg capsule 200 mg PO TID Qty: 540 RF: 1 pantoprazole 40 mg tablet,delayed release (DR/EC) 40 mg PO DAILY Qty: 90 RF: 1 polyethylene glycol 3350 17 gram powder in packet 17 g PO DAILY Qty: 100 RF: 1 quetiapine [Seroquel] 50 mg tablet 50 mg PO BID Qty: 180 RF: 1 trazodone 150 mg tablet See Rx Instructions PO QHS PRN (Reason: insomnia) Qty: 45 RF: 1 sennosides [Senokot] 8.6 mg tablet 8.6 mg PO DAILY Qty: 90 RF: 1 acetaminophen [Tylenol Extra Strength] 500 mg tablet 1,000 mg PO TID PRN PRNRF: 0 bisacodyl [Dulcolax (bisacodyl)] 10 mg suppository 10 mg W[place] DAILY PRNRF: 0 melatonin 3 mg tablet 6 mg PO HS PRNRF: 0 ondansetron HCl 4 mg tablet 4 mg PO Q8H PRNRF: 0 lorazepam 1 mg tablet 1 mg PO BID PRN (Reason: anxiety) Qty: 4 RF: 0 multivitamin [Multiple Vitamins] Tablet 1 tab PO DAILY Qty: 30 RF: 3 cyanocobalamin (vitamin B-12) [Vitamin B-12] 500 mcg Tablet 1,000 mcg PO DAILY Qty: 30 RF: 3 aspirin 81 mg Tablet,Delayed Release (Dr/Ec) 81 mg PO DAILY Qty: 0 RF: 0 atorvastatin 40 mg tablet 40 mg PO DAILY Qty: 30 RF: 0 metoprolol succinate [Toprol XL] 100 mg tablet extended release 24 hr 50 mg PO DAILY Qty: 90 RF: 1 Discharge Instructions Stand Alone Forms: Nursing Discharge Form Activity:: Activity as Tolerated Equipment/Supplies:: No Equipment Needed Diet:: As Tolerated Discharge Orders Discharge Orders: Discharge Order (Routine); Ordered 07/21/20 Ordered By: Sharron Cho DS: Summary Time Spent with Patient providing and/or coordinating discharge services: Less than 30 minutes Status at Discharge Functional status at discharge: independent ambulation Overall status at discharge: patient is progressing back to baseline Mental Status: mental status grossly normal Speech and Movement: speech and movement normal Mood: congruent mood Affect: normal affect Exam Const General: cooperative, healthy appearing, comfortable, no acute distress, well developed and well groomed Nutritional Appearance: average body habitus Orientation: alert, awake, oriented to person and oriented to place [facility] Head: normal to inspection, no palpable skull fracture, normocephalic and atraumatic Ears: hearing grossly normal bilaterally General nose exam: external nose normal and nares normal Face and sinus: normal facial exam Mouth: oral mucosae normal Throat: posterior oropharynx normal Eyes General: appearance normal, both eyes and all related structures Visual Mahan: normal visual mahan by confrontation Alignment and Position: alignment normal Periorbital: periorbital findings normal Eyelids: eyelids normal Conjunctivae: conjunctivae normal Cornea: corneas normal EOM: EOM intact bilaterally Neck Neck: normal visual inspection, no lymphadenopathy, no meningeal signs, trachea midline, supple and no JVD Carotids: normal carotid upstroke Lymphatic: no lymphadenopathy noted Resp Effort & Inspection: normal respiratory effort and able to speak in complete sentences Auscultation: clear to auscultation bilaterally Percussion: percussion normal Cardio Jugular venous pressure: no JVD Palpation: normal PMI Rate: regular rate Rhythm: abnormal rhythm irregularly irregular Heart Sounds: no murmurs Bruits: no abdominal aortic bruits Pulses: brachial pulses present, radial pulses present, femoral pulses present, popliteal pulses present, posterior tibial pulses present, dorsalis pedis present and normal peripheral pulses GI Inspection: normal to inspection Palpation: soft, no hepatosplenomegaly and nontender Percussion: normal to percussion General: No CVA tenderness Back/Spine/Pelvis Back: no CVA tenderness Cervical Spine: cervical ROM normal Thoracic/Lumbar Spine: thoracic and lumbar spine normal to inspection Skin General skin exam: no rashes or lesions noted and elasticity normal Lesions: no lesions Rashes: no rashes Wounds: no wounds Hair: normal Nails: normal Neuro General: patient alert, patient awake and oriented Patient Orientation: Person and Place Cranial Nerves: CN's II-XI intact bilaterally Cognition: abnormal cognition (mild memory loss; poor recall; but otherwise oriented and appropriate) Speech: speech normal Gait: normal gait Motor: muscle tone normal throughout Sensory Exam: no sensory deficits noted Extrem General: normal to inspection, full ROM and capillary refill normal Psych Appearance: grossly normal and well kempt Mental Status: mental status grossly normal Speech and Movement: speech and movement normal Mood: congruent mood Affect: normal affect Attitude: cooperative Thought Process: normal Thought Content: normal DS: Data Vitals/I&O Vitals and I&O: Vital Signs Temperature 36.7 C 07/21/20 07:37 Temperature Source Temporal Artery Scan 07/21/20 07:37 Pulse 75 07/21/20 07:37 Pulse Rhythm Regular 07/20/20 19:50 Respiratory Rate 18 07/21/20 07:37 Respiratory Effort Non-Labored 07/21/20 05:44 Respiratory Depth Normal 07/21/20 05:44 Respiratory Pattern Normal 07/21/20 05:44 Blood Pressure 94/58 L 07/21/20 07:37 Pulse Oximetry 93 07/21/20 07:37 Oxygen Delivery Method Room Air 07/21/20 07:37 Oxygen Flow Rate 0 07/21/20 07:37 Pain Level 0 07/21/20 07:37 Comment 07/21/20 07:37 Intake & Output 07/20/20 07/20/20 07/21/20 11:59 23:59 11:59 Intake Total 240 / 2295 2004 / 5 530 / 530 Output Total 300 / 300 700 / 700 Balance 1994 / 1994 -170 / -170 Intake: IV 75 / 125 50 / 50 Oral 240 / 2170 1930 / 2170 480 / 480 Output: Urine 300 / 300 700 / 700 Other: Urine Color Yellow Yellow Light Kesha Urine Appearance Clear Clear Clear Urine Odor None Normal None Comment pT said she has voided atleast 4X today. Stool Size Moderate Stool Characteristics Brown Voiding Methods Toilet Toilet Toilet Data Completed and Pending Labs on day of discharge: Labs from last 24 hours 07/21/20 07/21/20 06:00 06:00 WBC 11.79 H RBC 3.19 L Hgb 10.0 L Hct 30.4 L MCV 95.3 H MCH 31.3 MCHC 32.9 RDW 13.8 Plt Count 529 H MPV 10.0 Immature Gran % 1.2 Neutrophils % 77.5 Lymphocytes % 11.2 Monocytes % 7.3 Eosinophils % 2.0 Basophils % 0.8 Nucleated RBC % 0 Absolute Neutrophils 9.14 H Absolute Lymphocytes 1.32 Absolute Monocytes 0.86 H Absolute Eosinophils 0.24 Absolute Basophils 0.09 Sodium 147 H Potassium 3.9 Chloride 111 H Carbon Dioxide 27.7 Anion Gap 8.3 BUN 9 D Creatinine 1.1 H Estimated GFR/1.73 m2 50.33 Glucose 110 H Calcium 8.6 Total Bilirubin 0.3 AST 10 L ALT 14 Alkaline Phosphatase 80 Total Protein 6.6 Albumin 2.5 L PFSH Medical History Acute exacerbation of CHF (congestive heart failure) Alcohol abuse Alcohol abuse Alcohol withdrawal delirium, acute, hyperactive Anxiety and depression (08/06/14) Aspiration pneumonia Atrial fibrillation Atrial fibrillation with rapid ventricular response Bilateral pleural effusion Chest pain Chronic diastolic CHF (congestive heart failure) Depression History of alcohol abuse Lip laceration Lower extremity weakness Medical non-compliance Opiate addiction (08/06/14) in recovery. weaned off suboxone through [facility] 05/05/14 Pericardial effusion Pericardial effusion Pulmonary nodules Respiratory failure SAH (subarachnoid hemorrhage) Subclinical hypothyroidism Tobacco abuse (07/07/17) Surgical History bunionectomy lamontangen a few years ago 2005ish History of bilateral tubal ligation Family History Mother Diabetes Essential hypertension Personal history of malignant neoplasm lung, breast CA Father No problems noted. Sister Essential hypertension Sister No problems noted. Brother No problems noted. Maternal Aunt Personal history of malignant neoplasm breast Social History Smoking/Tobacco Use Status: Current every day Tobacco Type: cigarettes Smoking risk assessment performed?: Yes Alcohol Intake: former Drug use: Never Substance use type: does not use Details: Pt reports half a beer today. Household members: family Number of Children: 2 Communication Needs: Corrective Lenses Education Level: high school Do you need help understanding health information?: Often Current gender identity: female What is your relationship status?: Panel score (0-1 are the most socially isolated patients): 0 Seatbelt use: always Working smoke detector in home: Yes Fire extinguisher in home: Yes Carbon monox detector in home: Yes Do you feel safe at home: Yes Do you feel safe in your relationship?: Yes
--- NOTE | 2020-07-21 10:00 | PDOC.CMDIS ---
LACE Index Scoring Tool - Questions: Length of Stay (in days): 7 - 13 Acuity (Admit via E.D.?): Yes Comorbidities: Congestive Heart Failure E.D. Visits: 14 - Answers: Total Score: 14 Risk of Readmission: High Risk Care Management Discharge Reason for Hospitalization: SWB1 awaiting bed availablity. Discharge Plan: Maura will discharge to the [facility] for continued rehab prior to evaluation for termite exterminator care. She will transport via private vehicle with [facility], coordinated by this grant writer. Patient/Family Education Needs: Review of discharge instructions, SNF options, insurance limitations, discussion around self care needs, caregiver/family education. Services Needed at Discharge: [facility] ([facility]), Transportation ([facility] Private Tipping Machine Operator)
[2020-07-21] MEDS: Cefpodoxime 200 MG TAB 400 MG PO (10:26)
[2020-07-21 10:57] LABS: Source Nasal/Nares
[2020-07-21 11:39] LABS: COVID-19 PCR Negative (Negative)
--- NOTE | 2020-07-21 15:48 | PT.INTREAT ---
Date of service: 07/21/20 Time of Service: 09:30 PT Notes Visit Reasons: PYELONEPHRITIS Inpatient Physical Therapy Treatment Note [facility] Date: 07/21/2020 PRECAUTIONS: Fall SUBJECTIVE: Shantel is agreeable to participating in PT. She states that she does not really want to go to a SNF, but will do it and see how it goes. OBJECTIVE: Patient donned shoes independently. PAIN: No c/o pain BED MOBILITY/TRANSFERS Sit-stand: I Stand-sit: I GAIT Assistive Device: No AD Weight bearing: Full Assist: I Distance: 600' Deviation: None ASSESSMENT: Patient demonstrates independence with transfers and short-distance gait on level surfaces at this time. PLAN: Patient to discharge to SNF later today. TREATMENT CODE/TIME: 10 minutes - No Charge (09:30)
--- NOTE | 2020-07-22 11:26 | INDS_ITS ---
Date of service: 07/22/20 Time of Service: 11:26 PT Notes Visit Reasons: PYELONEPHRITIS Physical Therapy Inpatient Discharge Summary Date: 07/22/20 Dates of service: 07/19/2020 through 07/20/2020 This is a clinical summary of care provided on the duration of dates listed above. No charge was made in the completion of this documentation. Referring Doctor: Angelito Davey MD PT Orders: PT CONSULT: Extended Stay -? weakness Precautions: Fall. Standard. Activity as tolerated. Patient Profile/Admitting Diagnosis:?Shantel is a 61-year-old female who presented to the ED on 07/13/2020 with worsening abdominal pain that started 2 weeks ago, generalized weakness, altered mental status, and increased confusion.? Patient is diagnosed with sepsis, pyelonephritis, kidney injury and atrial fibrillation with rapid ventricular response. As of 07/18/20 patient was transitioned to swing bed level 1 for ongoing weakness until placement can be made next week. PMHX: Medical History ?Acute exacerbation of CHF (congestive heart failure) ?Alcohol abuse ?Alcohol withdrawal delirium, acute, hyperactive ?Anxiety and depression (08/06/14) ?Aspiration pneumonia ?Atrial fibrillation ?Atrial fibrillation with rapid ventricular response ?Bilateral pleural effusion ?Chest pain ?Chronic diastolic CHF (congestive heart failure) ?Depression ?History of alcohol abuse ?Lip laceration ?Lower extremity weakness ?Medical non-compliance ?Opiate addiction (08/06/14) ?Pericardial effusion ?Pericardial effusion ?Pulmonary nodules ?Respiratory failure ?SAH (subarachnoid hemorrhage) ?Subclinical hypothyroidism ?Tobacco abuse (07/07/17) Surgical History? ?bunionectomy ?lamontangen ?History of bilateral tubal ligation Social History/Home Situation: Lives with niece and guardian in private home with 4 cemented steps that lead to top and another 4-5 steps to the entrance of the house, rails on both set of steps.? Independent with all aspects of ADLs prior to admission without the need for an assistive ambulatory device nor adaptive equipment.? No longer drives. Equipment Owned/DME: None Subjective: NT. See most recent MANAGER COMPETITIVE INTELLIGENCE notes. Objective:? General Observation: NT. See most recent MANAGER COMPETITIVE INTELLIGENCE notes. Mental Status: NT. See most recent MANAGER COMPETITIVE INTELLIGENCE notes. Pain: NT. See most recent MANAGER COMPETITIVE INTELLIGENCE notes. ROM: Right Upper Extremity: Shoulder Flexion WFL. Shoulder abduction WFL. Elbow flexion WFL. Wrist flexion WFL. Opening and closing of hand WFL. Left Upper Extremity: Shoulder Flexion WFL. Shoulder abduction WFL. Elbow flexion WFL. Wrist flexion WFL. Opening and closing of hand WFL. Right Lower Extremity: Hip flexion WFL. Hip abduction WFL. Knee flexion WFL. Ankle dorsiflexion WFL. Ankle plantarflexion WFL. Left Lower Extremity: Hip flexion WFL. Hip abduction WFL. Knee flexion WFL. Ankle dorsiflexion WFL. Ankle plantarflexion WFL. Strength: Right Upper Extremity: Shoulder flexors 5/5. Shoulder abductors 5/5. Elbow fle xors 5/5. Elbow extensors 5/5. Post Closer strong. Left Upper Extremity: Shoulder flexors 5/5. Shoulder abductors 5/5. Elbow flexors 5/5. Elbow extensors 5/5. Post Closer strong. Right Lower Extremity: Hip flexors 5/5. Hip abductors 5/5. Knee flexors 5/5. Knee extensors 5/5. Ankle dorsiflexors 5/5. Ankle plantarflexors 5/5. Left Lower Extremity: Hip flexors 5/5. Hip abductors 5/5. Knee flexors 5/5. Knee extensors 5/5. Ankle dorsiflexors 5/5. Ankle plantarflexors 5/5. Sensation:?Intact as to pain and pressure on bilateral lower extremities. Bed Mobility/Transfers: Rolling: Independent Supine to sit: Independent Sit to supine: Independent Sit to stand: Independent Stand to sit: Independent Gait:?Ambulated up to 260 feet without an assistive device with full weight bearing on bilateral lower extremities requiring standby assist only with minimal path deviation seen. Stairs:?Able to ascend and descend nine 4 inch steps and six 6 inch steps with holding onto bilateral rails with step over step pattern requiring standby assist with minimal verbal cueing for overall safety. Balance:? Static Sitting: Normal Dynamic Sitting: Normal Static Standing: Good Dynamic Standing: Fair Assessment: Shantel has achieved mobility goals as indicated below and is discharged from PT services as of 07/20/2020. Impaired safety awareness limits ability of the patient to return to prior home setting. Patient presents with clinical signs and symptoms consistent with current/admitting diagnoses that have resulted to mobility limitations, gait instability, generalized weakness, and impairment of motor control as demonstrated by the following impairment level findings: 1.? Impaired dynamic standing balance Impairments are contributing to the following functional limitations: 1. Inability to return to prior living environment at this time Goals: Goals x1 week 1. Supine-Sit: independent MET 2. Sit-Supine: independent MET 3. Sit-Stand: independent MET 4. Stand-Sit: independent MET 5. Bed-Chair: independent MET 6. Chair-Bed: independent MET 7. Independent gait on level surface without assistive device for at least 1000 feet without report of pain nor dyspnea NOT MET 8. Independent stair negotiation while holding onto single rail for at least 10 steps without report of pain nor dyspnea NOT MET 9. Independent with home exercise program NOT MET 10. Good dynamic standing balance/tolerance NOT MET Discharge recommendation/destination: Patient will benefit from home health PT services in order to progress mobility level using least restrictive assistive ambulatory device, assess home safety, identify additional equipment needs, and establish a functional maintenance program. TREATMENT CODE/TIME: TN Thank you for the opportunity to participate in the care of this patient. Chika Cordova PT, DPT, CLT [facility] [place], [place]
== END 2020-07-21 11:03 | disposition intermediate care facility (04) | DRG 690 ==
PROVIDERS: Nurse Practitioner Family; Admitting Provider Internal Medicine; PCP Internal Medicine; Visit Provider Internal Medicine
DX: N10 Acute pyelonephritis (principal); I48.19 Other persistent atrial fibrillation; F10.27 Alcohol dependence with alcohol-induced persisting dementia; I50.32 Chronic diastolic (congestive) heart failure; D64.9 Anemia, unspecified; D25.9 Leiomyoma of uterus, unspecified; B96.20 Unspecified Escherichia coli [E. coli] as the cause of diseases classified elsewhere; N39.42 Incontinence without sensory awareness; Z86.73 Personal history of transient ischemic attack (TIA), and cerebral infarction without residual deficits; F41.8 Other specified anxiety disorders; F11.21 Opioid dependence, in remission; F17.210 Nicotine dependence, cigarettes, uncomplicated
CPT/HCPCS: 36415; 80053; 87635; 97110; 97530; 99305; 82607; 82746; 83540; 83550; 85025

== ENCOUNTER 2020-08-13 12:24 | Outpatient (REF) | payer MEDICARE, MEDICAID, SELFPAY ==
[2020-08-13 14:11] LABS: Abs Immature Grans 0.03 10^3/uL (0.0-0.06); Absolute Basophil Count 0.09 10^3/uL (0.0-0.2); Absolute Eosinophil Count 0.19 10^3/uL (0.0-0.7); Absolute Lymphocyte Count 1.36 10^3/uL (1.2-3.4); Absolute Monocyte Count 0.65 10^3/uL (0.1-0.8); Absolute Neutrophil Count 7.43 10^3/uL (1.2-6.7); Basophils % 0.9; Eosinophils % 1.9; HGB 11.7 g/dL (11.2-15.7); Immature Grans % 0.3; Lymphocytes % 13.9; MCHC 32.5 % (32.0-36.0); MCV 95.2 fL (80-95); Monocytes % 6.7; Neutrophils % 76.3; Nucleated RBC 0 %; Platelet Count 382 10^3/uL (130-400); RBC 3.78 10^6/uL (3.93-5.22); RDW 13.7 % (11.7-14.6); RDW-SD 47.9 fL; WBC 9.75 10^3/uL (4.4-10.8)
[2020-08-13 14:34] LABS: ALT 19 U/L (14-59); AST 14 U/L (15-37); Albumin 3.7 g/dL (3.4-5.0); Alkaline Phosphatase 127 U/L (46-116); Anion Gap 11.6 mmol/L (3-11); BUN 19 mg/dL (7-18); Bilirubin, Total 0.6 mg/dL (0.2-1.0); CO2 25.4 mmol/L (21.0-32.0); CREATININE 1.4 mg/dL (0.55-1.02); Calcium 9.2 mg/dL (8.5-10.1); Chloride 107 mmol/L (98-107); Glucose 125 mg/dL (74-106); Potassium 4.3 mmol/L (3.5-5.1); Sodium 144 mmol/L (136-145); Total Protein 7.3 g/dL (6.4-8.2)
== END 2020-08-13 12:25 | disposition home or self-care (01) ==
LOC: LBN 12:24
PROVIDERS: PCP Internal Medicine; Visit Provider Family Medicine
DX: D64.9 Anemia, unspecified (principal); F10.11 Alcohol abuse, in remission; E53.8 Deficiency of other specified B group vitamins
CPT/HCPCS: 80053; 85025

== ENCOUNTER → 2020-11-06 12:46 | Outpatient (BNVA) | payer MEDICARE, MEDICAID, SELFPAY | PROVIDERS: PCP Internal Medicine; Referring Provider Family Medicine; Visit Provider Psychiatry & Neurology Neurology | DX: R41.3 Other amnesia (principal); F10.11 Alcohol abuse, in remission; Z86.73 Personal history of transient ischemic attack (TIA), and cerebral infarction without residual deficits; I48.91 Unspecified atrial fibrillation | CPT/HCPCS: 99215 ==

== ENCOUNTER → 2020-11-10 13:43 | Outpatient (BNVA) | payer MEDICARE, MEDICAID, SELFPAY | PROVIDERS: PCP Internal Medicine; Referring Provider Internal Medicine; Visit Provider Internal Medicine Cardiovascular Disease | DX: I48.19 Other persistent atrial fibrillation (principal); R07.89 Other chest pain; J44.9 Chronic obstructive pulmonary disease, unspecified | CPT/HCPCS: 99213 ==

== ENCOUNTER 2020-12-16 01:24 | Outpatient (CLI) | payer MEDICARE, MEDICAID, SELFPAY ==
--- NOTE | 2020-12-16 12:55 | DI.MAMMO_ITS ---
Exam(s) MAMMO SCREENING EXAM: MAMMO SCREENING CLINICAL HISTORY: screening,Z12.39 TECHNIQUE: Bilateral full field digital CC and MLO mammographic images were obtained with 3D tomosyn thesis and utilizing computer aided detection (CAD). COMPARISON: None. FINDINGS: Masses/Architectural Distortion: None seen. Microcalcifications: No suspicious type microcalcifications are seen. There are coarse calcification s seen in the upper outer quadrant of the right breast. No branching or pleomorphic calcifications a re seen. Skin Thickening/Nipple Retraction: None. IMPRESSION: 1. No significant interval change with no specific features of malignancy noted. 2. Unless there is more urgent need, screening mammography is recommended, as per [employer] guidelines. BI-RADS Category 2 - Benign Findings Breast Density - Category C - Heterogeneously dense Breast density category C or D implies that the patient has dense breast tissue. Dense breast tissue is very common and is not abnormal but dense breast tissue can make it harder to find cancer on a ma mmogram. Also, dense breast tissue may increase their breast cancer risk. This information about the result of the mammogram report was provided to the patient to raise their awareness. Use this report when you speak with the patient about their risks for breast cancer, which includes their family hist ory. At that time, you may recommend for more screening tests (Ultrasound or MRI) as they might be us eful based on their risk. A negative radiographic report should not delay biopsy if a dominant or clinically suspicious mass is present. Up to ten percent of cancers are not identified on mammography. A negative report may reinforce clinical impression. Adenosis and dense breasts may obscure an underlying neoplasm. False positive reports average 6 to 10%. Patient will receive a letter notifying them of these results.
--- NOTE | 2020-12-16 13:03 | DI.CTLCSR_ITS ---
Exam(s) CT CHEST LUNG CANCER SCREEN EXAM: CT CHEST LUNG CANCER SCREEN CLINICAL HISTORY: Screening for lung cancer,CURRENT SMOKER, F17.210 TECHNIQUE: Imaging Protocol: Axial computed tomography images with coronal and sagittal reformatted images were created and reviewed COMPARISON: CT CT CHEST PE CTA from 04/07/[address] CHEST PE CTA from 04/07/[address] ABDOMEN PELVIS WO from 07/13/[address] ABDOMEN PELVIS WO from 07/13/2020 FINDINGS: The examination is limited due to patient motion artifact. Tracheobronchial tree: Patent where visualized. Pulmonary parenchyma: There are small bilateral infiltrates, left greater than right. There does liz ear to be a tiny left pleural effusion. No architectural distortion. Lung Nodules: None. Mediastinum and Jaye: No dominant adenopathy or fluid collection. Thyroid gland: Unremarkable. Pleura: Please see above. No pneumothorax. Heart: The heart is not dilated. No coronary artery calcifications are seen. No pericardial effusion . Aorta: Thoracic aorta non-dilated.Atherosclerosis. Upper abdomen: Unremarkable. Soft Tissues: Unremarkable. Bones: Within normal limits. IMPRESSION: 1. No pulmonary nodules. 2. Improvement in the bilateral basilar infiltrates since 07/13/2020. Persistent infiltrates are seen , left greater than right. 3. Tiny left pleural effusion. Lung RADS Cat 1 - Negative: No nodules and definitely benign nodules Lung-RADS 1.0 CATEGORIES: Category 0 - Prior chest CT exam(s) being located for comparison. Category 1 - Annual screening in 12 months. No nodules or definitely benign nodules. Category 2 - Annual screening in 12 months. Benign appearance. Nodules with low likelihood of becomin g active cancer. Category 3 - 6-month follow-up. Probably benign. Short-term follow-up suggested. Nodules with low lik elihood of becoming active cancer. Category 4A - 3-month follow-up and CT/PET if >8 mm in size. Suspicious finding. Findings which requi re additional testing. Category 4B - Findings which require additional testing and tissue sampling. Suspicious finding. Modifier S- Potentially clinically significant finding. (Non lung cancer) Incidental Findings RADIATION DOSE DELIVERED: 81.85mGy.cm Total DLP 1.84mGy CTDIvol 81.85mGy.cm Total DLP 1.84mGy CTDIvol DATA REPOSITORY: All CT scans at this facility are submitted to the National Radiology Data Registry (NRDR) Dose Index Registry (DIR) with the [employer] ([employer]). RADIATION OPTIMIZATION: All CT scans at this facility use at least one of these dose optimization te chniques: automated exposure control; mA and/or kV adjustment per patient size (includes targeted exa ms where dose is matched to clinical indication); or iterative reconstruction.
== END 2020-12-16 01:44 ==
PROVIDERS: PCP Internal Medicine; Visit Provider Internal Medicine
DX: Z12.31 Encounter for screening mammogram for malignant neoplasm of breast (principal); F17.210 Nicotine dependence, cigarettes, uncomplicated; Z12.2 Encounter for screening for malignant neoplasm of respiratory organs; R91.8 Other nonspecific abnormal finding of lung field; R92.8 Other abnormal and inconclusive findings on diagnostic imaging of breast; R92.1 Mammographic calcification found on diagnostic imaging of breast
CPT/HCPCS: 71271; 77063; 77067

== ENCOUNTER → 2021-05-07 12:46 | Outpatient (BNVA) | payer MEDICARE, MEDICAID, SELFPAY | PROVIDERS: PCP Internal Medicine; Referring Provider Internal Medicine; Visit Provider Psychiatry & Neurology Neurology | DX: R41.3 Other amnesia (principal); F10.11 Alcohol abuse, in remission; Z86.73 Personal history of transient ischemic attack (TIA), and cerebral infarction without residual deficits; I48.91 Unspecified atrial fibrillation; F32.A Depression, unspecified | CPT/HCPCS: 99215 ==

== ENCOUNTER → 2021-05-11 14:01 | Outpatient (BNVA) | payer MEDICARE, MEDICAID, SELFPAY | PROVIDERS: PCP Internal Medicine; Visit Provider Internal Medicine Cardiovascular Disease | DX: I48.91 Unspecified atrial fibrillation (principal); F10.11 Alcohol abuse, in remission; R41.3 Other amnesia; I51.89 Other ill-defined heart diseases | CPT/HCPCS: 99213 ==

== ENCOUNTER → 2021-07-29 10:36 | Outpatient (BNVA) | payer MEDICARE, MEDICAID, SELFPAY | PROVIDERS: PCP Internal Medicine; Referring Provider Internal Medicine; Visit Provider Psychiatry & Neurology Neurology | DX: R41.3 Other amnesia (principal); F10.11 Alcohol abuse, in remission; Z86.73 Personal history of transient ischemic attack (TIA), and cerebral infarction without residual deficits; I48.91 Unspecified atrial fibrillation | CPT/HCPCS: 99214 ==

== ENCOUNTER → 2021-11-03 10:45 | Outpatient (BNVA) | payer MEDICARE, MEDICAID, SELFPAY | PROVIDERS: PCP Internal Medicine; Referring Provider Internal Medicine; Visit Provider Psychiatry & Neurology Neurology | DX: I48.91 Unspecified atrial fibrillation (principal); R41.3 Other amnesia; F10.11 Alcohol abuse, in remission; Z86.73 Personal history of transient ischemic attack (TIA), and cerebral infarction without residual deficits | CPT/HCPCS: 99214 ==

== ENCOUNTER → 2021-12-23 02:04 | Outpatient (CLI) | payer MEDICARE, MEDICAID, SELFPAY ==
--- NOTE | 2021-12-23 11:09 | DI.CTLCSR_ITS ---
Exam(s) CT CHEST LUNG CANCER SCREEN EXAM: CT CHEST LUNG CANCER SCREEN CLINICAL HISTORY: Screening for lung cancer,CURRENT SMOKER, F17.210 TECHNIQUE: CT examination of the chest was performed utilizing low-dose lung cancer screening protoc ol. COMPARISON: CT CT CHEST LUNG CANCER SCREEN from 12/16/2020 FINDINGS: Images obtained through the upper abdomen show unremarkable appearance of visualized portions of the liver and spleen. There is no mediastinal or hilar adenopathy. Mediastinal vascular structures appear intact by noncon trast criteria. Tracheobronchial tree appears intact. No pleural effusion or pleural-based mass. Note is again made of pleural based scarring predominantly in the left lung base but also involving t he right lung base, this is unchanged from prior examination of November 2020, no significant intrapul monary nodule identified. IMPRESSION: BI-RADS Cat 1 - Negative Continue annual screening with LDCT in 12 months. Lung-RADS 1.0 CATEGORIES: Category 0 - Prior chest CT exam(s) being located for comparison. Category 1 - Annual screening in 12 months. No nodules or definitely benign nodules. Category 2 - Annual screening in 12 months. Benign appearance. Nodules with low likelihood of becomin g active cancer. Category 3 - 6-month follow-up. Probably benign. Short-term follow-up suggested. Nodules with low lik elihood of becoming active cancer. Category 4A - 3-month follow-up and CT/PET if >8 mm in size. Suspicious finding. Findings which requi re additional testing. Category 4B - Findings which require additional testing and tissue sampling. Suspicious finding. Category 4X - Category 3 or 4 nodules with additional features or imaging findings that increases the suspicion of malignancy. Modifier S- Potentially clinically significant finding. (Non lung cancer) RADIATION DOSE DELIVERED: 94.98mGy.cmTotal DLP CTDIvol 94.98mGy.cm Total DLP !Error CTDIvol DATA REPOSITORY: All CT scans at this facility are submitted to the National Radiology Data Registry (NRDR) Dose Index Registry (DIR) with the [employer] ([employer]). RADIATION OPTIMIZATION: All CT scans at this facility use at least one of these dose optimization te chniques: automated exposure control; mA and/or kV adjustment per patient size (includes targeted exa ms where dose is matched to clinical indication); or iterative reconstruction.
== END ==
PROVIDERS: PCP Nurse Practitioner Adult Health; Visit Provider Internal Medicine
DX: F17.210 Nicotine dependence, cigarettes, uncomplicated (principal); Z12.2 Encounter for screening for malignant neoplasm of respiratory organs; R91.8 Other nonspecific abnormal finding of lung field
CPT/HCPCS: 71271

== ENCOUNTER → 2022-05-05 10:07 | Outpatient (BNVA) | payer MEDICARE, MEDICAID, SELFPAY | PROVIDERS: PCP Nurse Practitioner Adult Health; Visit Provider Psychiatry & Neurology Neurology | DX: R41.3 Other amnesia (principal); F10.11 Alcohol abuse, in remission; Z86.73 Personal history of transient ischemic attack (TIA), and cerebral infarction without residual deficits; I48.91 Unspecified atrial fibrillation | CPT/HCPCS: 99214 ==

== ENCOUNTER 2022-05-10 09:03 | Outpatient (CLI) | payer MEDICARE, MEDICAID, SELFPAY ==
--- NOTE | 2022-05-10 09:00 | RT.EKG_ITS ---
APPROVED REPORT Exam: Resting ECG Reason for Exam: persistant afib Patient Location: O HR:63 bpm ECG Measurements Heart Rate 63 AXIS GA 168 P 62 QRSd 104 QRS 25 QT 423 T 88 QTc 434 Conclusion Sinus rhythm...normal P axis, V-rate 50- [address]-T abnormalities
== END 2022-05-10 09:04 | disposition home or self-care (01) ==
LOC: DI.CARD 09:04
PROVIDERS: PCP Nurse Practitioner Adult Health; Visit Provider Internal Medicine Cardiovascular Disease
DX: I48.91 Unspecified atrial fibrillation (principal)
CPT/HCPCS: 93010

== ENCOUNTER → 2022-05-10 13:42 | Outpatient (BNVA) | payer MEDICARE, MEDICAID, SELFPAY | PROVIDERS: PCP Internal Medicine; Referring Provider Internal Medicine; Visit Provider Internal Medicine Cardiovascular Disease | DX: I48.19 Other persistent atrial fibrillation (principal); Z79.01 Long term (current) use of anticoagulants | CPT/HCPCS: 93005; 99213 ==

== ENCOUNTER 2022-05-17 03:44 | Outpatient (CLI) | payer MEDICARE, MEDICAID, SELFPAY ==
[2022-05-17 08:09] LABS: Anion Gap 8.6 mmol/L (3-11); BUN 15 mg/dL (7-18); CO2 29.4 mmol/L (21.0-32.0); CREATININE 1.5 mg/dL (0.55-1.02); Calcium 9.7 mg/dL (8.5-10.1); Calculated LDL 63 mg/dL (<100); Chloride 107 mmol/L (98-107); Cholesterol 133 mg/dL (<200); Estimated GFR 38.67 (mL/min/1.73m2); Glucose 110 mg/dL (74-106); HDL Cholesterol 53 mg/dL (40-60); Potassium 4.4 mmol/L (3.5-5.1); Sodium 145 mmol/L (136-145); TSH (W/Ref FT4) 3.76 uIU/mL (0.36-3.74); Triglyceride 89 mg/dL (<150); Vitamin B12 911 pg/mL (193-986)
[2022-05-17 08:38] LABS: FREE T4 1.03 ng/dL (0.76-1.46)
== END 2022-05-17 03:45 | disposition home or self-care (01) ==
LOC: LBO 03:45
PROVIDERS: PCP Nurse Practitioner Adult Health; Visit Provider Nurse Practitioner Adult Health
DX: E03.9 Hypothyroidism, unspecified (principal); R41.3 Other amnesia; E53.8 Deficiency of other specified B group vitamins; F10.27 Alcohol dependence with alcohol-induced persisting dementia; I48.19 Other persistent atrial fibrillation; Z79.899 Other long term (current) drug therapy
CPT/HCPCS: 36415; 80048; 80061; 82607; 84439; 84443

== ENCOUNTER → 2022-07-06 10:39 | Outpatient (BNVA) | payer MEDICARE, MEDICAID, SELFPAY | PROVIDERS: PCP Nurse Practitioner Adult Health; Referring Provider Nurse Practitioner Adult Health; Visit Provider Psychiatry & Neurology Neurology | DX: R41.3 Other amnesia (principal); F10.11 Alcohol abuse, in remission; Z86.73 Personal history of transient ischemic attack (TIA), and cerebral infarction without residual deficits; I48.91 Unspecified atrial fibrillation; Z79.01 Long term (current) use of anticoagulants | CPT/HCPCS: 99214 ==

== ENCOUNTER 2022-07-08 01:20 | Outpatient (CLI) | payer MEDICARE, MEDICAID, SELFPAY ==
--- NOTE | 2022-07-08 07:51 | DI.MAMMO_ITS ---
Exam(s) MAMMO SCREENING EXAM: MAMMO SCREENING CLINICAL HISTORY: screening,Z12.39. TECHNIQUE: Bilateral full field digital CC and MLO mammographic images were obtained with 3D tomosyn thesis and utilizing computer aided detection (CAD). COMPARISON: Prior only mammogram of November 2020 was reviewed. FINDINGS: Fibroglandular tissue pattern is again noted be moderately dense. No new right breast findings. Benign microcalcifications in the right breast are again noted. In the left breast there is an asymmetric density-possible nodule seen on the CC view located 0.5 cm in the nipple measuring 6 x 5 mm. Additional imaging recommended. There are no malignant-appearing microcalcification groups in this region nor elsewhere in either ran ast. There is no significant architectural distortion nor skin thickening-retraction. IMPRESSION: Moderately dense fibroglandular tissue. Suggestion of possible 6 x 5 mm nodule anteriorly in the lef t breast. Spot compression CC view and ultrasound recommended. BI-RADS Category 0 - Assessment Incomplete: Need additional imaging evaluation Breast Density - Category C - Heterogeneously dense Breast density Category C or D implies that the patient has dense breast tissue. Dense breast tissue can make it harder to find cancer on a mammogram. Dense breast tissue is also associated with an incr eased risk of breast cancer. This information about the result of the mammogram report was provided to the patient to raise their awareness. Use this report when you speak with the patient about their risks for breast cancer, which includes their family history. At that time, you may recommend additional screening tests (Ultrasoun d or MRI) as these tests may add significant information. A negative radiographic report should not delay biopsy if a dominant or clinically suspicious mass is present. Up to ten percent of cancers are not identified on mammography. A negative report may reinforce clinical impression. Adenosis and dense breasts may obscure an underlying neoplasm. False positive reports average 6 to 10%. Patient will receive a letter notifying them of these results.
== END 2022-07-08 01:40 ==
PROVIDERS: PCP Nurse Practitioner Adult Health; Visit Provider Nurse Practitioner Adult Health
DX: Z12.31 Encounter for screening mammogram for malignant neoplasm of breast (principal); R92.8 Other abnormal and inconclusive findings on diagnostic imaging of breast
CPT/HCPCS: 77063; 77067

== ENCOUNTER 2022-07-13 11:00 | Outpatient (CLI) | payer MEDICARE, MEDICAID, SELFPAY ==
--- NOTE | 2022-07-13 | DI.US_ITS ---
Exam(s) MG MAMMO SCREEN CALL BACK UNI US BREAST LT COMPLETE EXAM: MG MAMMO SCREEN CALL BACK UNI and U/S breast LT complete CLINICAL HISTORY: F/U MAMMO, R92.8,SUGGESTION OF LT BREAST NODULE. TECHNIQUE: Craniocaudal and mediolateral oblique Full Field Digital Mammography views of the left br east with Computer Aided Diagnosis followed by Tomosynthesis and left breast ultrasound. COMPARISON: Comparison is made with prior examinations. FINDINGS: Mammography/Tomosynthesis: Masses/Architectural Distortion: The nodular density seen in the retroareolar region of the left esther st is less prominent on the additional views. Microcalcifictions: No suspicious pleomorphic-type are seen. Skin Thickening/Nipple Retraction: None. Complete left breast US: Echotexture: Normal appearance of the glandular tissue. Shadowing: No suspicious foci. Cyst: None. Solid lesions: None seen. Ductal dilation: Mildly prominent ducts are seen at the 9 o'clock position of the breast 5 cm from th e nipple. IMPRESSION: 1. No definite evidence of malignancy is noted. 2. A six-month follow-up left mammogram is recommended for re-evaluation. 3. The findings were discussed with the patient on the date of the examination. BI-RADS Category 3 - 6 month - Probably Benign Finding: Recommend follow-up imaging in 6 months Breast Density - Category C - Heterogeneously dense Breast density Category C or D implies that the patient has dense breast tissue. Dense breast tissue can make it harder to find cancer on a mammogram. Dense breast tissue is also associated with an incr eased risk of breast cancer. This information about the result of the mammogram report was provided to the patient to raise their awareness. Use this report when you speak with the patient about their risks for breast cancer, which includes their family history. At that time, you may recommend additional screening tests (Ultrasoun d or MRI) as these tests may add significant information. A negative radiographic report should not delay biopsy if a dominant or clinically suspicious mass is present. Up to ten percent of cancers are not identified on mammography. A negative report may reinforce clinical impression. Adenosis and dense breasts may obscure an underlying neoplasm. False positive reports average 6 to 10%. Patient will receive a letter notifying them of these results.
== END 2022-07-13 11:20 ==
LOC: DI 11:01
PROVIDERS: PCP Nurse Practitioner Adult Health; Visit Provider Nurse Practitioner Adult Health
DX: Z12.31 Encounter for screening mammogram for malignant neoplasm of breast (principal); R92.8 Other abnormal and inconclusive findings on diagnostic imaging of breast
CPT/HCPCS: 76642; 77063; 77067

== ENCOUNTER → 2022-09-28 09:07 | Outpatient (BNVA) | payer MEDICARE, MEDICAID, SELFPAY | PROVIDERS: PCP Nurse Practitioner Adult Health; Visit Provider Psychiatry & Neurology Neurology | DX: R41.3 Other amnesia (principal); F10.11 Alcohol abuse, in remission; Z86.73 Personal history of transient ischemic attack (TIA), and cerebral infarction without residual deficits; Z79.01 Long term (current) use of anticoagulants | CPT/HCPCS: 99214 ==

== ENCOUNTER 2022-10-04 10:06 | Outpatient (CLI) | payer MEDICARE, MEDICAID, SELFPAY ==
--- NOTE | 2022-10-04 10:00 | RT.EKG_ITS ---
APPROVED REPORT Exam: Resting ECG Reason for Exam: Lots of QT prolonging meds Patient Location: O HR:55 bpm ECG Measurements Heart Rate 55 AXIS PA 172 P 76 QRSd 121 QRS 46 QT 425 T 96 QTc 407 Conclusion Sinus rhythm...normal P axis, V-rate 50- 99 Nonspecific intraventricular conduction delay...QRSd >115mS, not LBBB/RBBB Anteroseptal infarct, age indeterminate...Q >35mS, T neg, V1-V2
== END 2022-10-04 10:07 | disposition home or self-care (01) ==
PROVIDERS: PCP Nurse Practitioner Adult Health; Visit Provider Psychiatry & Neurology Neurology
DX: R00.1 Bradycardia, unspecified (principal)
CPT/HCPCS: 93005; 93010

== ENCOUNTER 2023-01-03 18:03 | Outpatient (REF) | payer MEDICARE, MEDICAID, SELFPAY ==
[2023-01-03 17:54] LABS: Abs Immature Grans 0.03 10^3/uL (0.0-0.06); Absolute Eosinophil Count 0.13 10^3/uL (0.0-0.7); Absolute Lymphocyte Count 1.31 10^3/uL (1.2-3.4); Absolute Monocyte Count 0.76 10^3/uL (0.1-0.8); Basophils % 1.1; Eosinophils % 1.5; HCT 41.6 % (36.0-46.0); HGB 13.8 g/dL (11.2-15.7); Immature Grans % 0.3; MCH 31.9 pg (27.0-33.0); MCHC 33.2 % (32.0-36.0); MCV 96 fL (80-95); MPV 10.2 fL (8.0-11.0); Monocytes % 8.7; Neutrophils % 73.4; Platelet Count 349 10^3/uL (130-400); RBC 4.33 10^6/uL (3.93-5.22); RDW 14.4 % (11.7-14.6); RDW-SD 50.9 fL; WBC 8.73 10^3/uL (4.4-10.8)
[2023-01-03 18:05] LABS: Iron 73 ug/dL (50-170); Total Iron Binding Capacity 282 ug/dL (250-450); Transferrin Sat 26 % (15-50)
[2023-01-03 18:23] LABS: Hemoglobin A1C 6.1 % (<5.7)
[2023-01-03 18:28] LABS: Vitamin D 25 Total 34.6 ng/mL (30-100)
[2023-01-03 18:31] LABS: ALT 19 U/L (14-59); AST 14 U/L (15-37); Albumin 3.7 g/dL (3.4-5.0); Alkaline Phosphatase 100 U/L (46-116); Anion Gap 9.7 mmol/L (3-11); BUN 15 mg/dL (7-18); Bilirubin, Total 0.3 mg/dL (0.2-1.0); CO2 27.3 mmol/L (21.0-32.0); CREATININE 1.1 mg/dL (0.55-1.02); Calcium 9.3 mg/dL (8.5-10.1); Chloride 105 mmol/L (98-107); Estimated GFR 56.11 (mL/min/1.73m2); Ferritin 71 ng/mL (8-252); Folate > 20.0 ng/mL (8.6-20.0); Glucose 100 mg/dL (74-106); Potassium 4.1 mmol/L (3.5-5.1); Sodium 142 mmol/L (136-145); TSH (W/Ref FT4) 1.53 uIU/mL (0.36-3.74); Total Protein 7.2 g/dL (6.4-8.2); Vitamin B12 649 pg/mL (193-986)
[2023-01-03 18:52] LABS: NT-proBNP 342 pg/mL (<300)
== END 2023-01-03 18:04 | disposition home or self-care (01) ==
LOC: LBN 18:03
PROVIDERS: PCP Nurse Practitioner Adult Health; Visit Provider Nurse Practitioner Gerontology
DX: D64.9 Anemia, unspecified (principal); J44.1 Chronic obstructive pulmonary disease with (acute) exacerbation
CPT/HCPCS: 80053; 82306; 82607; 82728; 82746; 83036; 83540; 83550; 83735; 83880; 84443; 85025

== ENCOUNTER → 2023-01-18 02:08 | Outpatient (CLI) | payer MEDICARE, MEDICAID, SELFPAY ==
--- NOTE | 2023-01-18 07:30 | DI.MAMMO_ITS ---
Exam(s) MAMMO DIAGNOSTIC UNI EXAM: MAMMO DIAGNOSTIC UNI CLINICAL HISTORY: 6 MO F/U, R92.8. TECHNIQUE: Craniocaudal and mediolateral oblique Full Field Digital Mammography views of the left br east with Computer Aided Diagnosis followed by Tomosynthesis. COMPARISON: Comparison is made with prior examinations. FINDINGS: Mammography/Tomosynthesis: Masses/Architectural Distortion: None seen. Microcalcifictions: No suspicious pleomorphic-type are seen. Skin Thickening/Nipple Retraction: None. IMPRESSION: 1. No evidence of malignancy is noted. 2. Unless there is more urgent need, follow-up screening mammography is recommended, as per [employer] [employer] guidelines. 3. The findings were discussed with the patient on the date of the examination. BI-RADS Category 1 - Negative Breast Density - Category C - Heterogeneously dense Breast density Category C or D implies that the patient has dense breast tissue. Dense breast tissue can make it harder to find cancer on a mammogram. Dense breast tissue is also associated with an incr eased risk of breast cancer. This information about the result of the mammogram report was provided to the patient to raise their awareness. Use this report when you speak with the patient about their risks for breast cancer, which includes their family history. At that time, you may recommend additional screening tests (Ultrasoun d or MRI) as these tests may add significant information. A negative radiographic report should not delay biopsy if a dominant or clinically suspicious mass is present. Up to ten percent of cancers are not identified on mammography. A negative report may reinforce clinical impression. Adenosis and dense breasts may obscure an underlying neoplasm. False positive reports average 6 to 10%. Patient will receive a letter notifying them of these results.
== END ==
PROVIDERS: PCP Nurse Practitioner Adult Health; Visit Provider Nurse Practitioner Adult Health
DX: R92.8 Other abnormal and inconclusive findings on diagnostic imaging of breast (principal); Z12.31 Encounter for screening mammogram for malignant neoplasm of breast
CPT/HCPCS: 77061; 77065; G0279

== ENCOUNTER → 2023-04-14 09:37 | Outpatient (BNVA) | payer MEDICARE, MEDICAID, SELFPAY | PROVIDERS: PCP Nurse Practitioner Adult Health; Referring Provider Nurse Practitioner Adult Health; Visit Provider Psychiatry & Neurology Neurology | DX: R41.3 Other amnesia (principal); F10.11 Alcohol abuse, in remission; Z86.73 Personal history of transient ischemic attack (TIA), and cerebral infarction without residual deficits; R00.1 Bradycardia, unspecified | CPT/HCPCS: 99214 ==

== ENCOUNTER → 2023-05-31 10:11 | Outpatient (BNVA) | payer MEDICARE, MEDICAID, SELFPAY | PROVIDERS: Visit Provider Internal Medicine Cardiovascular Disease | DX: I48.19 Other persistent atrial fibrillation (principal) | CPT/HCPCS: 99213 ==

== ENCOUNTER 2023-07-26 15:29 | Outpatient (REF) | payer MEDICARE, MEDICAID, SELFPAY ==
[2023-07-26 18:29] LABS: Hemoglobin A1C 5.9 % (<5.7); Iron 78 ug/dL (50-170); Total Iron Binding Capacity 212 ug/dL (250-450); Transferrin Sat 37 % (15-50)
[2023-07-26 18:57] LABS: ALT 16 U/L (14-59); AST 13 U/L (15-37); Albumin 3.1 g/dL (3.4-5.0); Alkaline Phosphatase 104 U/L (46-116); Anion Gap 5.3 mmol/L (3-11); BUN 16 mg/dL (7-18); Bilirubin, Total 0.5 mg/dL (0.2-1.0); CO2 29.7 mmol/L (21.0-32.0); CREATININE 1.1 mg/dL (0.55-1.02); Calcium 8.6 mg/dL (8.5-10.1); Chloride 110 mmol/L (98-107); Estimated GFR 55.76 (mL/min/1.73m2); Ferritin 72 ng/mL (8-252); Glucose 97 mg/dL (74-106); Magnesium 1.8 mg/dL (1.8-2.4); Potassium 3.9 mmol/L (3.5-5.1); Sodium 145 mmol/L (136-145); Total Protein 6.1 g/dL (6.4-8.2); Vitamin B12 417 pg/mL (193-986)
== END 2023-07-26 15:30 | disposition home or self-care (01) ==
LOC: LBN 15:29
PROVIDERS: Visit Provider Nurse Practitioner Gerontology
DX: I11.9 Hypertensive heart disease without heart failure (principal)
CPT/HCPCS: 80053; 82607; 82728; 83036; 83540; 83550; 83735

== ENCOUNTER → 2023-10-17 09:43 | Outpatient (BNVA) | payer MEDICARE, MEDICAID, SELFPAY | PROVIDERS: Visit Provider Psychiatry & Neurology Neurology | DX: R41.3 Other amnesia (principal); F10.11 Alcohol abuse, in remission; Z86.73 Personal history of transient ischemic attack (TIA), and cerebral infarction without residual deficits; R00.1 Bradycardia, unspecified | CPT/HCPCS: 99215 ==

== ENCOUNTER 2024-06-14 07:47 | Outpatient (CLI) | payer MEDICARE, MEDICAID, SELFPAY | END 2024-06-14 07:48 | disposition home or self-care (01) | LOC: DI.CARD 07:48 | PROVIDERS: Visit Provider Internal Medicine Cardiovascular Disease | DX: I48.19 Other persistent atrial fibrillation (principal); R00.1 Bradycardia, unspecified | CPT/HCPCS: 93010 ==

== ENCOUNTER → 2024-06-22 12:37 | Outpatient (BNVA) | payer MEDICARE, MEDICAID, SELFPAY | PROVIDERS: PCP Legal Medicine; Visit Provider Internal Medicine Cardiovascular Disease | DX: I48.19 Other persistent atrial fibrillation (principal); Z79.01 Long term (current) use of anticoagulants | CPT/HCPCS: 99213 ==

== ENCOUNTER → 2024-06-27 08:21 | Outpatient (BNVA) | payer MEDICARE, MEDICAID, SELFPAY | PROVIDERS: PCP Legal Medicine; Referring Provider Legal Medicine; Visit Provider Podiatrist | DX: I73.89 Other specified peripheral vascular diseases (principal); B35.1 Tinea unguium; L60.3 Nail dystrophy; L84 Corns and callosities; R09.89 Other specified symptoms and signs involving the circulatory and respiratory systems; R60.0 Localized edema; L65.9 Nonscarring hair loss, unspecified; R23.8 Other skin changes; L60.8 Other nail disorders; L85.8 Other specified epidermal thickening | CPT/HCPCS: 11721 ==

== ENCOUNTER → 2024-10-22 10:53 | Outpatient (BNVA) | payer MEDICARE, MEDICAID, SELFPAY | PROVIDERS: PCP Legal Medicine; Visit Provider Psychiatry & Neurology Neurology | DX: R41.3 Other amnesia (principal); F10.11 Alcohol abuse, in remission; Z86.73 Personal history of transient ischemic attack (TIA), and cerebral infarction without residual deficits; R00.1 Bradycardia, unspecified | CPT/HCPCS: 99213 ==